=== PATIENT | female | born 1970 | race Caucasian/White ===

== ENCOUNTER 2016-09-05 21:29 | Inpatient (IN) | payer MEDICAID ==
[~2016-09-05] VITALS: Ht 162.6 cm; Wt 74.5 kg
[~2016-09-05 21:29] MED LIST: ALPR2TAB3 PO; GABA800T PO; LANTUS2P SQ; NOVOLOGP2 SQ; PROM25TA5 PO; ROPI2 PO; SERO200T PO; SOMA350T PO
[2016-09-05 22:15] VITALS: BP 103/60; PULSE 100; RESP 20; TEMP 98.8; O2SAT 97
[2016-09-05] MEDS ORDERED: SODIUM CHLOR 0.9% 1000 ML INJ 1,000 ML IV ONE ×2 (23:22→23:52)
[2016-09-05] MEDS ORDERED: SODIUM CHLORIDE 0.9% FLUSH 5 ML FLUSH IVF PRN (23:30)
[2016-09-05] MEDS ORDERED: VANCOMYCIN INJ 1,000 MG in SODIUM CHLOR 0.9% 250 ML INJ 250 ML IV ONE (23:30)
[2016-09-05 23:41] LABS: AUTOMATED NEUTROPHIL # 12.5 TH/MM3 (1.8-7.7); BASOPHIL # 0.2 TH/MM3 (0-0.2); BASOPHIL % 1.2 % (0.0-2.0); EOSINOPHIL # 0.1 TH/MM3 (0-0.4); EOSINOPHIL % 0.9 % (0.0-4.0); HEMATOCRIT 26.9 % (35.0-46.0); LYMPH % 11.3 % (9.0-44.0); LYMPHOCYTE # 1.8 TH/MM3 (1.0-4.8); MEAN CELL VOLUME 86.5 FL (80.0-100.0); MEAN CORPUSCULAR HEMOGLOBIN 28.3 PG (27.0-34.0); MEAN CORPUSCULAR HGB CONC 32.8 % (32.0-36.0); MONO % 6.9 % (0.0-8.0); NEUT % 79.7 % (16.0-70.0); PLATELET COUNT 211 TH/MM3 (150-450); RED BLOOD COUNT 3.12 MIL/MM3 (4.00-5.30); RED CELL DISTRIBUTION WIDTH 15.4 % (11.6-17.2); WHITE BLOOD COUNT 15.7 TH/MM3 (4.0-11.0)
[2016-09-05 23:44] LABS: HEMO FLAGS DIFF FINAL
[2016-09-05 23:49] LABS: CHLORIDE 101 MEQ/L (98-107); POTASSIUM 3.7 MEQ/L (3.5-5.1); SODIUM (NA) 136 MEQ/L (136-145)
[2016-09-05 23:50] VITALS: O2SAT 100
[2016-09-05 23:53] LABS: ANION GAP 12 MEQ/L (5-15); BICARBONATE 23.1 MEQ/L (21.0-32.0)
[2016-09-05 23:54] LABS: BLOOD UREA NITROGEN 16 MG/DL (7-18); MAGNESIUM 2.4 MG/DL (1.5-2.5)
[2016-09-06] VITALS (13 sets, daily range): BP systolic 100–125; BP diastolic 47–74; PULSE 93–108; RESP 16–20; TEMP 97.1–99.3; O2SAT 97–100
[2016-09-06 00:02] LABS: ALKALINE PHOSPHATASE 204 U/L (45-117); ALT (GPT) 12 U/L (10-53); AST (GOT) 9 U/L (15-37); GLOMERULAR FILTRATION RATE 48 ML/MIN (>89); TOTAL BILIRUBIN ADULT 0.2 MG/DL (0.2-1.0)
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
[2016-09-06] MEDS ORDERED: TEGR200T PO (00:21)
[2016-09-06] MEDS ORDERED: PRAZ1CAP PO (00:22)
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
[2016-09-06] MEDS ORDERED: HYDR4TAB PO (00:23)
[2016-09-06] MEDS ORDERED: HUMALOG SQ (00:24)
[2016-09-06] MEDS ORDERED: HUMA100I3 SQ (00:25)
[2016-09-06] MEDS ORDERED: CLINDAMYCIN INJ 900 MG in SODIUM CHLORIDE 0.9% INJ 100 ML IV ONE (00:45)
[2016-09-06] MEDS ORDERED: INSULIN HUMAN REGULAR 1,000 UNITS/10 ML VIAL IV PUSH ONE (00:45)
[2016-09-06 01:10] LABS: BLOOD, URINE TRACE (NEG); KETONE, URINE NEG (NEG); NITRITE,URINE NEG (NEG); PH, URINE 5.5 (5.0-8.5)
[2016-09-06 01:13] LABS: GLUCOSE,URINE 1000 OR GREATER mg/dL (NEG); URINE COLOR YELLOW (YELLW/STRAW)
[2016-09-06 01:14] LABS: SQUAMOUS EPITHELIAL CELL URINE 0-5 /hpf (0-5); WBC, URINE 0-2 /hpf (0-5)
[2016-09-06 01:15] LABS: COMMENT (UR) CULT NOT INDICATED; CULTURE IF INDICATED CULT NOT INDICATED
[2016-09-06 01:27] LABS: AMPHETAMINE, URINE NEG (NEG)
[2016-09-06 01:28] LABS: BARBITURATES, URINE NEG (NEG)
[2016-09-06 01:33] LABS: COCAINE, URINE NEG (NEG)
[2016-09-06] MEDS ORDERED: ONDANSETRON HCL 4 MG/2 ML VIAL IV PUSH ONE ×2 (01:45→12:00)
[2016-09-06] MEDS ORDERED: HYDROmorphone HCL PF 1 MG/ML VIAL IV PUSH ONE ×3 (01:45→05:00)
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
[2016-09-06] MEDS ORDERED: PIPERACIL-TAZO 3.375 GM PREMIX 50 ML IV ONE (02:00)
[2016-09-06] MEDS ORDERED: SODIUM CHLOR 0.9% 1000 ML INJ 1,000 ML IV ONE (02:00)
[2016-09-06] MEDS ORDERED: SODIUM CHLORIDE 0.9% FLUSH 5 ML FLUSH IVF PRN ×2 (02:15→16:45)
[2016-09-06] MEDS ORDERED: D5-1/2 NS + KCL 20 MEQ INJ 1,000 ML IV SCH (02:30)
[2016-09-06] MEDS ORDERED: Vancomycin Consult Pharmacy 1 EA OTHER SCH ×2 (02:45→09:15)
[2016-09-06] MEDS: HEPARIN SODIUM - SQ 10,000 UNITS/ML VIAL SQ SCH (02:45)
[2016-09-06] MEDS ORDERED: NALOXONE HCL 0.4 MG/ML AMP IV PRN (02:45)
[2016-09-06] MEDS ORDERED: SODIUM CHLOR 0.9% 1000 ML INJ 1,000 ML IV SCH (02:45)
[2016-09-06] MEDS ORDERED: SENNOSIDES 8.6 MG TAB PO PRN (02:45)
[2016-09-06] MEDS ORDERED: DEXTROSE 50% IN WATER 50 ML SYRINGE IV ONE (03:45)
[2016-09-06] MEDS ORDERED: DEXTROSE 50% IN WATER 50 ML VIAL(D50) IV ONE (04:00)
[2016-09-06] MEDS: INSULIN ASPART SUPPLEMENTAL SCALE SQ SCH ×4 (06:54→21:00)
[2016-09-06] MEDS ORDERED: SODIUM CHLORIDE 0.9% FLUSH 5 ML FLUSH IVF SCH ×2 (09:00→21:00)
[2016-09-06] MEDS: PIPERACIL-TAZO 3.375 GM PREMIX 50 ML IV SCH ×3 (09:07→21:00)
[2016-09-06] MEDS: SODIUM CHLORIDE 0.9% FLUSH 5 ML FLUSH FLUSH SCH ×2 (09:07→20:32)
[2016-09-06] MEDS ORDERED: PROMETHAZINE HCL 25 MG TAB PO PRN (10:00)
[2016-09-06] MEDS ORDERED: DEXTROSE 25% IN WATER 10 ML SYRINGE IV PUSH ONE (10:00)
[2016-09-06] MEDS: DEXTROSE 50% IN WATER 50 ML VIAL(D50) IV PUSH PRN (10:05)
[2016-09-06] MEDS: SODIUM CHLORIDE 0.9% FLUSH 5 ML FLUSH FLUSH PRN (10:05)
[2016-09-06] MEDS: GLUCAGON 1 MG/ML VIAL OTHER PRN (10:42)
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
[2016-09-06] MEDS ORDERED: LACTATED RINGER'S 1000 ML INJ 1,000 ML IV ONE (12:00)
[2016-09-06] MEDS ORDERED: PROPOFOL 200 MG/20 ML AMP IV ONE (12:00)
--- NOTE | 2016-09-06 13:00 | RADRPT ---
EXAM DATE/TIME: 09/06/2016 11:35 [facility] COMPARISON: FOOT LEFT COMPLETE ([id number]), September 05, 2016, 23:39. INDICATIONS: Osteomyelitis. MEDICAL HISTORY: Diabetes mellitus type 2. SURGICAL HISTORY: Tubal ligation. Cholecystectomy. Fusion, cervical. ENCOUNTER: Initial ACUITY: 2 day PAIN SCORE: 10/10 LOCATION: Left foot TECHNIQUE: Multiplanar, multisequence MRI examination was performed without contrast. FINDINGS: There is generalized soft tissue swelling evident. Plain films had shown minimal gas in the soft tis sues on the medial side of the ankle. There is edema in the medial tarsal navicular and cuneiform, nonspecific. This is subtle seen only o n inversion recovery images. There is extensive subcutaneous edema in the soft tissues. Intravenous contrast was not used because of lack of vascular access. Metatarsals and phalanges are unremarkable. Calcaneus and talus are unremarkable. CONCLUSION: Significant abnormality on the medial side of the foot with abnormal signal in the tarsal navicular a nd first cuneiform. Gonzalo Sears MD FACR on September 06, 2016 at 12:38 Board Certified Radiologist. This report was verified electronically.
[2016-09-06] MEDS ORDERED: BUPIVACAINE HCL PF 0.25% 30 ML VIAL ONE (13:12)
[2016-09-06] MEDS ORDERED: LIDOCAINE HCL 1% 50 ML VIAL ONE (13:12)
[2016-09-06] MEDS ORDERED: SODIUM CHLORID 0.9% 500 ML IV SCH (13:15)
[2016-09-06] MEDS ORDERED: LACTATED RINGER'S 1000 ML IV SCH (13:15)
[2016-09-06] MEDS ORDERED: METOPROLOL TARTRATE 25 MG TAB PO PRN (13:15)
[2016-09-06] MEDS ORDERED: INSULIN HUMAN REGULAR 1,000 UNITS/10 ML VIAL SQ PRN (13:15)
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
[2016-09-06] MEDS ORDERED: BUPIVACAINE HCL PF 0.5% 30 ML VIAL ONE (14:54)
[2016-09-06] MEDS ORDERED: MIDAZOLAM HCL 2 MG/2 ML VIAL ONE ×2 (15:48→16:51)
[2016-09-06] MEDS ORDERED: fentaNYL CITRATE 250 MCG/5 ML AMP ONE ×2 (15:48→16:51)
[2016-09-06] MEDS ORDERED: NEOMYCIN/POLYMYXIN 1 ML G.U. IRRIGANT IR ONE (16:00)
[2016-09-06] MEDS ORDERED: *HYDROmorphone PF 1 MG VIAL PERIprocedural Use ONLY ONE ×3 (16:41→16:57)
[2016-09-06] MEDS ORDERED: Post-op Orders (for Pharmacy) MISC XX ONE (16:45)
[2016-09-06] MEDS ORDERED: MORPHINE SULFATE 4 MG/ML INJ ONE (16:51)
[2016-09-06] MEDS ORDERED: *hydrOXYzine 25 MG VIAL PERIprocedural Use ONLY IM ONE (16:56)
[2016-09-06] MEDS: DEXT 5%-NACL 0.9% 1000 ML INJ 1,000 ML IV SCH ×2 (17:00→20:33)
--- NOTE | 2016-09-06 17:08 | RADRPT ---
EXAM DATE/TIME: 09/06/2016 16:51 [place] COMPARISON: CHEST SINGLE AP, September 05, 2016, 23:33. INDICATIONS : Evaluate central line placement. MEDICAL HISTORY : None. SURGICAL HISTORY : None. ENCOUNTER: Initial ACUITY: 1 day PAIN SCORE: 0/10 LOCATION: Left chest FINDINGS: A single view of the chest demonstrates the lungs to be symmetrically aerated without evidence of mas s, infiltrate or effusion. The cardiomediastinal contours are unremarkable. There is a right interna l jugular central venous line with no pneumothorax. Status post lower cervical fusion. Osseous struct ures are intact. CONCLUSION: No acute disease. Central line placement with no pneumothorax. Surendra Wright MD on September 06, 2016 at 17:03 Board Certified Radiologist. This report was verified electronically.
[2016-09-06] MEDS: HYDROmorphone HCL PF 1 MG/ML VIAL IV PUSH PRN (18:45)
[2016-09-06] MEDS: GABAPENTIN 300 MG CAP PO SCH (20:33)
[2016-09-06] MEDS: carBAMazepine 200 MG TAB PO SCH (20:33)
[2016-09-06] MEDS: ALPRAZolam 1 MG TAB PO PRN (20:34)
[2016-09-06] MEDS: HYDROmorphone HCL 4 MG TAB PO PRN (20:34)
[2016-09-06] MEDS ORDERED: VANCOMYCIN 1,500 MG/NS 500 ML IV SCH ×2 (22:00)
[2016-09-07] VITALS (8 sets, daily range): BP systolic 100–133; BP diastolic 51–69; PULSE 93–108; RESP 18–20; TEMP 97.6–99.6; O2SAT 97–99
[2016-09-07] MEDS: HYDROmorphone HCL PF 1 MG/ML VIAL IV PUSH PRN ×4 (01:03→17:20)
[2016-09-07] MEDS: DEXT 5%-NACL 0.9% 1000 ML INJ 1,000 ML IV SCH (01:28)
[2016-09-07] MEDS: ALPRAZolam 1 MG TAB PO PRN ×4 (02:31→21:50)
[2016-09-07] MEDS: PIPERACIL-TAZO 3.375 GM PREMIX 50 ML IV SCH ×4 (02:31→21:47)
[2016-09-07] MEDS: HYDROmorphone HCL 4 MG TAB PO PRN ×4 (02:31→21:33)
[2016-09-07] MEDS: HEPARIN SODIUM - SQ 10,000 UNITS/ML VIAL SQ SCH ×2 (02:32→15:07)
[2016-09-07] MEDS: INSULIN ASPART SUPPLEMENTAL SCALE SQ SCH ×2 (05:28→10:41)
[2016-09-07 06:00] LABS: AUTOMATED NEUTROPHIL # 10.4 TH/MM3 (1.8-7.7); BASOPHIL # 0.1 TH/MM3 (0-0.2); BASOPHIL % 0.9 % (0.0-2.0); EOSINOPHIL # 0.4 TH/MM3 (0-0.4); EOSINOPHIL % 2.7 % (0.0-4.0); HEMATOCRIT 22.9 % (35.0-46.0); HEMO FLAGS DIFF FINAL; LYMPH % 13.7 % (9.0-44.0); LYMPHOCYTE # 1.9 TH/MM3 (1.0-4.8); MEAN CELL VOLUME 87.2 FL (80.0-100.0); MEAN CORPUSCULAR HEMOGLOBIN 28.3 PG (27.0-34.0); MEAN CORPUSCULAR HGB CONC 32.4 % (32.0-36.0); MONO % 6.8 % (0.0-8.0); NEUT % 75.9 % (16.0-70.0); PLATELET COUNT 255 TH/MM3 (150-450); RED BLOOD COUNT 2.63 MIL/MM3 (4.00-5.30); RED CELL DISTRIBUTION WIDTH 16.2 % (11.6-17.2); WHITE BLOOD COUNT 13.7 TH/MM3 (4.0-11.0)
[2016-09-07 06:22] LABS: BICARBONATE 22.5 MEQ/L (21.0-32.0)
[2016-09-07 06:37] LABS: CALCIUM-PROTEIN CORRECTED 7.8 MG/DL (8.5-10.1)
[2016-09-07] MEDS ORDERED: QUEtiapine FUMARATE 200 MG TAB PO SCH (09:00)
[2016-09-07] MEDS ORDERED: PRAZOSIN HCL 1 MG CAP PO SCH (09:00)
[2016-09-07] MEDS: CARISOPRODOL 350 MG TAB PO PRN ×3 (09:06→21:33)
[2016-09-07] MEDS: GABAPENTIN 300 MG CAP PO SCH (09:07)
[2016-09-07] MEDS: SODIUM CHLORIDE 0.9% FLUSH 5 ML FLUSH FLUSH SCH ×2 (09:09→21:34)
[2016-09-07] MEDS: carBAMazepine 200 MG TAB PO SCH ×2 (09:09→21:33)
[2016-09-07] MEDS: LEVOFLOXACIN 500 MG PREMIX INJ 100 ML IV SCH ×2 (10:00→10:35)
[2016-09-07] MEDS: VANCOMYCIN 1,000 MG/NS 250 ML IV SCH ×4 (12:08→23:59)
--- NOTE | 2016-09-07 14:38 | HHI.PR ---
Subjective Remarks He should complain of chest pain on the right mid back ribs increased with pressure and respiration No fever or chills, no nausea or vomiting Patient told me she is very susceptible to get DKA, we'll stop D50 normal saline , and check Accu-Chek every 4 hours, changes of sliding scale to level, and start Levemir twice a day 10 units Objective Vitals Vital Signs Date Time Temp Pulse Resp B/P Pulse Ox O2 Delivery O2 Flow Rate FiO2 09/07/16 12:17 99.4 103 18 105/58 97 09/07/16 09:40 99 21 09/07/16 08:48 99.5 108 18 112/69 99 09/07/16 04:25 98.1 96 18 118/60 97 09/07/16 00:58 98 09/07/16 00:16 98.0 98 20 120/60 97 09/06/16 20:00 98.1 100 20 118/59 97 09/06/16 19:15 16 09/06/16 19:00 103 09/06/16 17:00 98.4 108 14 124/83 98 Nasal Cannula 2 09/06/16 16:49 97.1 99 20 124/74 98 09/06/16 16:45 107 14 140/77 98 Nasal Cannula 2 09/06/16 16:39 98.4 111 14 135/73 97 Nasal Cannula 2 I/O 09/06/16 09/06/16 09/06/16 09/07/16 09/07/16 09/07/16 07:00 15:00 23:00 07:00 15:00 23:00 Intake Total 3400 ml 1440 ml 480 ml 1100 ml Output Total 800 ml 20 ml Balance 2600 ml 1420 ml 480 ml 1100 ml Intake Oral 240 ml 480 ml IV Total 3400 ml 1100 ml Other 1200 ml Output Urine Total 800 ml Estimated Blood Loss 20 ml # Voids 1 1 2 Result Diagram: 09/07/16 0531 09/07/16 0532 Objective Remarks GENERAL: This is a well-nourished, well-developed patient, in no apparent distress. SKIN: No rashes, warm and dry HEAD: Atraumatic. Normocephalic. EYES: Pupils equal round and reactive. Extraocular motions intact. No scleral icterus. ENT: Nose without bleeding, or drainage, Airway patent. NECK: Trachea midline. Supple CARDIOVASCULAR: Regular rate and rhythm without murmurs, gallops, or rubs. RESPIRATORY: Fair air entry bilaterally. No wheezes, rales, or rhonchi. GASTROINTESTINAL: Abdomen soft, non-tender, nondistended. Positive bowel sounds MUSCULOSKELETAL: Extremities without clubbing, cyanosis, or edema. Pedal pulses appreciated NEUROLOGICAL: Awake and alert. Moves all extremity. Normal speech.no focal neurological deficit A/P Assessment and Plan A/P: - Infected diabetic left foot suspected gangrene/necrotizing fasciitis status post I&D - Sepsis - Uncontrolled diabetes mellitus with episode of hypoglycemia. - Hypocalcemia - Gastroparesis History - History of PTSD, anxiety. - Chronic pain syndrome with neck surgery in the past. - History of IV drug abuse in the past and positive cocaine in the urine drug screen last year. PLAN Patient told me she is very susceptible to get DKA, we'll stop D50 normal saline , and check Accu-Chek every 4 hours, changes of sliding scale to level, and start Levemir twice a day 10 units Calcium carbonate for hypocalcemia - Gabapentin 600 mg on as needed basis. - Broad spectrum antibiotic. - Awaiting ID consult - Appreciate Podiatry consult - Continue home medications. - Antiemetics on a p.r.n. basis. - Discussed with Dr. Sandoval the admitted physician Melissa Bella MD Sep 07, 2016 14:38
[2016-09-07] MEDS: SODIUM CHLOR 0.9% 1000 ML INJ 1,000 ML IV SCH (15:12)
[2016-09-07] MEDS: INSULIN NovoLIN REGULAR SUPPLEMENTAL SCALE SQ SCH ×2 (18:31→21:48)
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
[2016-09-07] MEDS ORDERED: INSULIN DETEMIR 100 UNITS/ML VIAL SQ SCH (21:00)
[2016-09-07] MEDS: QUEtiapine FUMARATE 200 MG TAB PO SCH (21:32)
[2016-09-07] MEDS: PRAZOSIN HCL 2 MG CAP PO SCH (21:33)
[2016-09-07] MEDS: CALCIUM CARBONATE 1.25 GM (CA 500 MG) TAB PO SCH (21:33)
[2016-09-07] MEDS: GABAPENTIN 400 MG CAP PO SCH (21:33)
[2016-09-07] MEDS: INSULIN DETEMIR 100 UNITS/ML VIAL SQ SCH (21:49)
[2016-09-08] VITALS (9 sets, daily range): BP systolic 102–135; BP diastolic 53–69; PULSE 90–102; RESP 18–20; TEMP 94.4–98.3; O2SAT 95–98
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
[2016-09-08] MEDS: CLINDAMYCIN 150 MG CAP PO SCH ×4 (00:48→17:03)
[2016-09-08] MEDS: SODIUM CHLOR 0.9% 1000 ML INJ 1,000 ML IV SCH ×3 (01:01→22:43)
[2016-09-08] MEDS: HEPARIN SODIUM - SQ 10,000 UNITS/ML VIAL SQ SCH ×2 (02:45→15:06)
[2016-09-08] MEDS: PIPERACIL-TAZO 3.375 GM PREMIX 50 ML IV SCH ×4 (03:13→20:52)
[2016-09-08] MEDS: HYDROmorphone HCL 4 MG TAB PO PRN ×5 (03:21→22:39)
[2016-09-08] MEDS: ALPRAZolam 1 MG TAB PO PRN ×3 (05:13→18:31)
[2016-09-08] MEDS: HYDROmorphone HCL PF 1 MG/ML VIAL IV PUSH PRN ×3 (05:14→12:17)
[2016-09-08] MEDS: CARISOPRODOL 350 MG TAB PO PRN ×3 (05:22→18:31)
[2016-09-08] MEDS: DEXTROSE 50% IN WATER 50 ML VIAL(D50) IV PUSH PRN (06:22)
[2016-09-08] MEDS: INSULIN NovoLIN REGULAR SUPPLEMENTAL SCALE SQ SCH ×4 (06:24→20:53)
[2016-09-08] MEDS ORDERED: BUPIVACAINE HCL PF 0.5% 30 ML VIAL ONE (07:12)
[2016-09-08] MEDS ORDERED: LIDOCAINE HCL 1% 50 ML VIAL ONE (07:13)
[2016-09-08] MEDS ORDERED: NEOMYCIN/POLYMYXIN 1 ML G.U. IRRIGANT IR ONE (07:18)
[2016-09-08] MEDS: SODIUM CHLORIDE 0.9% FLUSH 5 ML FLUSH FLUSH SCH ×2 (07:42→20:33)
[2016-09-08] MEDS: GABAPENTIN 400 MG CAP PO SCH ×3 (07:43→20:32)
[2016-09-08] MEDS: INSULIN DETEMIR 100 UNITS/ML VIAL SQ SCH ×2 (07:43→20:52)
[2016-09-08] MEDS: carBAMazepine 200 MG TAB PO SCH ×2 (07:43→20:33)
[2016-09-08] MEDS: CALCIUM CARBONATE 1.25 GM (CA 500 MG) TAB PO SCH ×2 (07:43→20:33)
[2016-09-08] MEDS ORDERED: fentaNYL CITRATE 250 MCG/5 ML AMP ONE (07:56)
[2016-09-08] MEDS ORDERED: MIDAZOLAM HCL 2 MG/2 ML VIAL ONE (07:56)
[2016-09-08] MEDS ORDERED: ACETAMINOPHEN 1000 MG/100 ML VIAL IV ONE (07:56)
[2016-09-08] MEDS ORDERED: SUGAMMADEX SODIUM 200 MG/2 ML VIAL IV PUSH ONE ×2 (07:57)
[2016-09-08] MEDS ORDERED: DO NOT ADM ANY ANTICOAGULANT DRUGS XX PRN (08:55)
[2016-09-08] MEDS ORDERED: SODIUM CHLORIDE 0.9% FLUSH 5 ML FLUSH IVF SCH (09:00)
[2016-09-08] MEDS ORDERED: INSULIN DETEMIR 100 UNITS/ML VIAL SQ SCH (09:00)
[2016-09-08] MEDS ORDERED: SODIUM CHLORIDE 0.9% FLUSH 5 ML FLUSH IVF PRN (09:00)
[2016-09-08] MEDS ORDERED: *HYDROmorphone PF 1 MG VIAL PERIprocedural Use ONLY ONE (09:00)
[2016-09-08] MEDS ORDERED: Post-op Orders (for Pharmacy) MISC XX ONE (09:00)
[2016-09-08] MEDS ORDERED: MORPHINE SULFATE 4 MG/ML INJ ONE (09:01)
[2016-09-08] MEDS: VANCOMYCIN 1,000 MG/NS 250 ML IV SCH ×2 (12:00)
[2016-09-08] MEDS ORDERED: LACTATED RINGER'S 1000 ML INJ 1,000 ML IV ONE (12:00)
[2016-09-08] MEDS ORDERED: ONDANSETRON HCL 4 MG/2 ML VIAL IV PUSH ONE (12:00)
[2016-09-08] MEDS ORDERED: PROPOFOL 200 MG/20 ML AMP IV ONE (12:00)
--- NOTE | 2016-09-08 12:57 | HHI.PR ---
Subjective Remarks Patient reported she still in severe pain, she requested that Dilaudid by mouth to be every 4 hours I discussed with the PT was at the bedside he recommended rehabilitation at discharge No fever or chills, no chest pain Objective Vitals Vital Signs Date Time Temp Pulse Resp B/P Pulse Ox O2 Delivery O2 Flow Rate FiO2 09/08/16 12:27 97.8 97 18 109/61 95 09/08/16 10:19 98.3 99 18 119/66 96 09/08/16 09:13 98.4 105 16 111/72 99 Room Air 09/08/16 09:00 102 14 123/72 99 Nasal Cannula 2 09/08/16 08:55 98.4 110 14 116/67 94 Nasal Cannula 2 09/08/16 07:25 97.8 99 18 102/69 98 09/08/16 06:13 19 09/08/16 06:13 19 09/08/16 04:27 18 09/08/16 04:00 98.0 96 20 114/64 98 09/08/16 01:17 90 09/07/16 20:00 97.6 93 20 100/51 98 09/07/16 18:21 21 09/07/16 16:47 99.6 104 18 133/64 97 I/O 09/07/16 09/07/16 09/07/16 09/08/16 09/08/16 09/08/16 07:00 15:00 23:00 07:00 15:00 23:00 Intake Total 480 ml 1340 ml 240 ml 500 ml 1100 ml Output Total 50 ml Balance 480 ml 1340 ml 240 ml 500 ml 1050 ml Intake Oral 480 ml 240 ml 240 ml IV Total 1100 ml 500 ml 100 ml Other 1000 ml Output Urine Total 0 ml Estimated Blood Loss 50 ml # Voids 2 4 1 4 # Bowel Movements 0 1 Result Diagram: 09/07/16 0531 09/07/16 0532 Objective Remarks GENERAL: This is a well-nourished, well-developed patient, in no apparent distress. SKIN: No rashes, warm and dry HEAD: Atraumatic. Normocephalic. EYES: Pupils equal round and reactive. Extraocular motions intact. No scleral icterus. ENT: Nose without bleeding, or drainage, Airway patent. NECK: Trachea midline. Supple CARDIOVASCULAR: Regular rate and rhythm without murmurs, gallops, or rubs. RESPIRATORY: Fair air entry bilaterally. No wheezes, rales, or rhonchi. GASTROINTESTINAL: Abdomen soft, non-tender, nondistended. Positive bowel sounds MUSCULOSKELETAL: Extremities without clubbing, cyanosis, or edema. Pedal pulses appreciated NEUROLOGICAL: Awake and alert. Moves all extremity. Normal speech.no focal neurological deficit A/P Assessment and Plan A/P: - Infected diabetic left foot gangrene/necrotizing fasciitis status post I&D - Sepsis due to above - Uncontrolled diabetes mellitus with episodes of hypoglycemia. - Hypocalcemia - Gastroparesis History - History of PTSD, anxiety. - Chronic pain syndrome with neck surgery in the past. - History of IV drug abuse in the past and positive cocaine in the urine drug screen last year. PLAN Due to episode of low fasting blood glucose we will adjust Levemir to 20 units in a.m., 10 units in p.m., continue Accu-Chek every 4 hours, apply hyperglycemic protocol Calcium carbonate for hypocalcemia Change Dilaudid by mouth 2 every 4 hours 4 milligram versus 2 mg with pain scale - Gabapentin 600 mg on as needed basis. - Broad spectrum antibiotic. - Appreciate ID consult>> continue Zosyn and Vanco, switch Levaquin to clindamycin - Appreciate Podiatry consult - Continue home medications. - Antiemetics on a p.r.n. basis. - Discussed with Dr. Sandoval the admitted physician Melissa Bella MD Sep 08, 2016 12:57
--- NOTE | 2016-09-08 19:45 | MP ---
cc: DARWIN ARREOLA DPM DATE OF SURGERY 09/08/2016 PREOPERATIVE DIAGNOSIS Left diabetic foot infection. POSTOPERATIVE DIAGNOSIS Left diabetic foot infection. PROCEDURES 1. Irrigation and debridement left foot. 2. Deep culture. 3. Application of wound VAC. ANESTHESIA The patient handled anesthesia well. Anesthesia was general with 10 cc of 0.5% Marcaine plain and 1% lidocaine plain injected preoperatively. ESTIMATED BLOOD LOSS 10 cc. TOURNIQUET TIME Left thigh tourniquet at 250 mmHg for 22 minutes. SPECIMEN Deep culture of the left foot. INDICATION The patient is a 45-year-old diabetic female with a severe left foot infection. Went to surgery on Friday for an initial wash out, I&D and wound VAC application. She comes back today for serial wound VAC changes and repeat I&D. The patient understands the procedure performed today as well as potential risks and complications involved. All questions were answered. The patient was brought to the operating room and placed on the operating table in the supine position. Pneumatic thigh tourniquet was placed on the left thigh. The left foot was scrubbed, prepped and draped in the usual sterile fashion. 10 cc of 0.5 Marcaine plain and 1% lidocaine was injected preoperatively. First attention was directed in which a rongeur, pickups and were used in the open wound that measured 11 x 3 pre debridement. All necrotic tissue and non viable tissue was debrided away. Next it was found to have the inferior portion of the open incision was beginning to become necrotic, approximately 1 cm so the necrotic tissue was excised on the skin and now the wound measured 11.5 x 4.0. The area was copiously flushed with a liter of antibiotic impregnated saline and the area was dried. The plantar arch was mildly macerated. Betadine was put over that area. Mastisol was used around the incision and a small wound VAC was placed over the wound. I did have to re-enforce a lot because of the position of the foot and so the whole foot had to be wrapped but the sponge only placed inside the wound margins. Then cast padding and Tim was used to wrap the foot. The patient handled anesthesia well. Darwin Arreola DPM ZPB/KK /8:53 AM /7:34 PM
[2016-09-08] MEDS: QUEtiapine FUMARATE 200 MG TAB PO SCH (20:32)
[2016-09-08] MEDS: PRAZOSIN HCL 2 MG CAP PO SCH (20:34)
[2016-09-08] MEDS ORDERED: PHARMACY ORDERED LAB XX ONE (21:45)
[2016-09-09] VITALS (7 sets, daily range): BP systolic 103–129; BP diastolic 55–69; PULSE 87–109; RESP 18–20; TEMP 97.4–98.8; O2SAT 95–99
[2016-09-09] MEDS: VANCOMYCIN 1,000 MG/NS 250 ML IV SCH ×2 (01:32)
[2016-09-09] MEDS: HEPARIN SODIUM - SQ 10,000 UNITS/ML VIAL SQ SCH ×2 (01:32→14:45)
[2016-09-09] MEDS: CLINDAMYCIN 150 MG CAP PO SCH ×4 (01:32→17:53)
[2016-09-09] MEDS: CARISOPRODOL 350 MG TAB PO PRN ×3 (01:41→12:27)
[2016-09-09] MEDS: HYDROmorphone HCL PF 1 MG/ML VIAL IV PUSH PRN ×4 (01:41→15:30)
[2016-09-09] MEDS: ALPRAZolam 1 MG TAB PO PRN ×4 (01:42→21:55)
[2016-09-09] MEDS: HYDROmorphone HCL 4 MG TAB PO PRN ×5 (03:27→22:08)
[2016-09-09] MEDS: PIPERACIL-TAZO 3.375 GM PREMIX 50 ML IV SCH ×4 (03:29→22:07)
[2016-09-09] MEDS: SODIUM CHLOR 0.9% 1000 ML INJ 1,000 ML IV SCH ×2 (07:00→17:00)
[2016-09-09] MEDS: INSULIN NovoLIN REGULAR SUPPLEMENTAL SCALE SQ SCH ×4 (07:00→21:55)
[2016-09-09] MEDS ORDERED: INSULIN DETEMIR 100 UNITS/ML VIAL SQ SCH (08:00)
[2016-09-09] MEDS: SODIUM CHLORIDE 0.9% FLUSH 5 ML FLUSH FLUSH SCH ×2 (09:00→21:57)
[2016-09-09] MEDS: GABAPENTIN 400 MG CAP PO SCH ×3 (09:31→21:56)
[2016-09-09] MEDS: CALCIUM CARBONATE 1.25 GM (CA 500 MG) TAB PO SCH ×2 (09:31→21:57)
[2016-09-09] MEDS: carBAMazepine 200 MG TAB PO SCH ×2 (09:31→21:56)
--- NOTE | 2016-09-09 11:36 | HHI.PR ---
Subjective Remarks Follow up on left leg gangrenous diabetic infection status post I&D and wound VAC No fever or chills, patient stated her pain is more tolerable now Blood glucose fluctuating, will increase morning Levemir to 30 units with 3 units 3 times a day before meals Objective Vitals Vital Signs Date Time Temp Pulse Resp B/P Pulse Ox O2 Delivery O2 Flow Rate FiO2 09/09/16 08:12 97.4 109 18 106/55 95 09/09/16 04:30 18 09/09/16 04:00 97.9 100 20 104/55 96 09/09/16 03:18 18 09/09/16 02:11 19 09/09/16 00:17 92 09/09/16 00:00 98.8 94 18 103/56 95 09/08/16 20:00 92 09/08/16 20:00 98.2 100 18 112/53 97 09/08/16 18:16 96 21 09/08/16 16:19 94.4 102 18 135/67 96 09/08/16 12:27 97.8 97 18 109/61 95 I/O 09/08/16 09/08/16 09/08/16 09/09/16 09/09/16 09/09/16 07:00 15:00 23:00 07:00 15:00 23:00 Intake Total 500 ml 1580 ml 360 ml 240 ml Output Total 50 ml 500 ml Balance 500 ml 1530 ml -140 ml 240 ml Intake Oral 480 ml 360 ml 240 ml IV Total 500 ml 100 ml Other 1000 ml Output Urine Total 0 ml 500 ml Estimated Blood Loss 50 ml # Voids 4 4 3 # Bowel Movements 1 1 0 Result Diagram: 09/07/16 0531 09/08/16 1731 Objective Remarks GENERAL: This is a well-nourished, well-developed patient, in no apparent distress. SKIN: No rashes, warm and dry HEAD: Atraumatic. Normocephalic. EYES: Pupils equal round and reactive. Extraocular motions intact. No scleral icterus. ENT: Nose without bleeding, or drainage, Airway patent. NECK: Trachea midline. Supple CARDIOVASCULAR: Regular rate and rhythm without murmurs, gallops, or rubs. RESPIRATORY: Fair air entry bilaterally. No wheezes, rales, or rhonchi. GASTROINTESTINAL: Abdomen soft, non-tender, nondistended. Positive bowel sounds MUSCULOSKELETAL: Extremities without clubbing, cyanosis, or edema. Pedal pulses appreciated NEUROLOGICAL: Awake and alert. Moves all extremity. Normal speech.no focal neurological deficit A/P Assessment and Plan A/P: - Infected diabetic left foot gangrene/necrotizing fasciitis status post I&D - Sepsis due to above - Uncontrolled diabetes mellitus with episodes of hypoglycemia. - Hypocalcemia - Gastroparesis History - History of PTSD, anxiety. - Chronic pain syndrome with neck surgery in the past. - History of IV drug abuse in the past and positive cocaine in the urine drug screen last year. PLAN Blood glucose still fluctuating and not control during the day, will increase morning Levemir to 30 units, and add NovoLog 3 units 3 times a day before meals , continue 10 units in p.m., continue Accu-Chek every 4 hours, apply hyperglycemic protocol Podiatry on board, patient for OR tomorrow evening as she was told Calcium carbonate for hypocalcemia Change Dilaudid by mouth 2 every 4 hours 4 milligram versus 2 mg with pain scale - Gabapentin 600 mg on as needed basis. - Broad spectrum antibiotic. - Appreciate ID consult>> continue Zosyn and Vanco, switch Levaquin to clindamycin - Continue home medications. - Antiemetics on a p.r.n. basis. - Discussed with Dr. Sandoval the admitted physician Melissa Bella MD Sep 09, 2016 11:36
[2016-09-09] MEDS ORDERED: PHARMACY ORDERED LAB XX ONE (11:45)
[2016-09-09] MEDS: INSULIN ASPART 1,000 UNITS/10 ML VIAL SQ SCH ×2 (12:11→18:22)
--- NOTE | 2016-09-09 17:52 | HHI.PR ---
Addendum to Inpatient Note Addendum Reason: Additional Documentation Additional Information cultures reviewed DC Vanco IV as no MRSA Continue Zosyn IV Continue Clinda for total of 5 days. Start Diflucan oral. Follow cultures Follow clinically. Will follow pt in am. Melissa Maldonado MD Sep 09, 2016 17:52
[2016-09-09] MEDS: FLUCONAZOLE 200 MG TAB PO SCH (18:00)
--- NOTE | 2016-09-09 19:45 | PD.POD ---
Subjective Podiatric Problems s/p Left ankle I and D with Dr Medina 09/08/16 Doing well at bedside this am. Pain scale used: 0-10 numeric scale Pain score: 4 Past Med/Surg/Social History Social History Smoking Status: Never Smoker Objective Vital Signs Vital Signs Date Time Temp Pulse Resp B/P Pulse Ox O2 Delivery O2 Flow Rate FiO2 09/09/16 16:19 97.6 102 19 129/68 96 09/09/16 12:09 98.3 87 18 106/58 99 09/09/16 08:12 97.4 109 18 106/55 95 09/09/16 04:30 18 09/09/16 04:00 97.9 100 20 104/55 96 09/09/16 03:18 18 09/09/16 02:11 19 09/09/16 00:17 92 09/09/16 00:00 98.8 94 18 103/56 95 09/08/16 20:00 92 09/08/16 20:00 98.2 100 18 112/53 97 Coded Allergies: Toradol (Verified Allergy, Severe, Anaphylaxis, 09/05/16) Other Results Laboratory Tests Test 09/05/16 09/06/16 09/07/16 09/07/16 23:25 00:55 05:31 05:32 Lactic Acid Level 3.3 mmol/L Magnesium Level 2.4 MG/DL Total Bilirubin 0.2 MG/DL Aspartate Amino Transf 9 U/L (AST/SGOT) Alanine Aminotransferase 12 U/L (ALT/SGPT) Alkaline Phosphatase 204 U/L Albumin 2.6 GM/DL B-Hydroxybutyrate 0.10 MMOL/L Urine Color YELLOW Urine Turbidity CLEAR Urine pH 5.5 Urine Specific [place] 1.032 Urine Protein NEG mg/dL Urine Glucose (UA) 1000 OR GREATER mg/dL Urine Ketones NEG mg/dL Urine Occult Blood TRACE Urine Nitrite NEG Urine Bilirubin NEG Urine Leukocyte Esterase NEG Urine RBC 3-5 /hpf Urine WBC 0-2 /hpf Urine Squamous Epithelial 0-5 /hpf Cells Urine Bacteria NONE /hpf Microscopic Urinalysis Comment CULT NOT INDICATED Urine Opiates Screen POS Urine Barbiturates Screen NEG Urine Amphetamines Screen NEG Urine Benzodiazepines Screen POS Urine Cocaine Screen NEG Urine Cannabinoids Screen NEG White Blood Count 13.7 TH/MM3 Red Blood Count 2.63 MIL/MM3 Hemoglobin 7.4 GM/DL Hematocrit 22.9 % Mean Corpuscular Volume 87.2 FL Mean Corpuscular Hemoglobin 28.3 PG Mean Corpuscular Hemoglobin 32.4 % Concent Red Cell Distribution Width 16.2 % Platelet Count 255 TH/MM3 Mean Platelet Volume 9.8 FL Neutrophils (%) (Auto) 75.9 % Lymphocytes (%) (Auto) 13.7 % Monocytes (%) (Auto) 6.8 % Eosinophils (%) (Auto) 2.7 % Basophils (%) (Auto) 0.9 % Neutrophils # (Auto) 10.4 TH/MM3 Lymphocytes # (Auto) 1.9 TH/MM3 Monocytes # (Auto) 0.9 TH/MM3 Eosinophils # (Auto) 0.4 TH/MM3 Basophils # (Auto) 0.1 TH/MM3 CBC Comment DIFF FINAL Differential Comment Sodium Level 134 MEQ/L Potassium Level 4.0 MEQ/L Chloride Level 102 MEQ/L Carbon Dioxide Level 22.5 MEQ/L Anion Gap 10 MEQ/L Blood Urea Nitrogen 5 MG/DL Creatinine 0.70 MG/DL Estimat Glomerular Filtration 90 ML/MIN Rate Calcium Level 7.1 MG/DL Protein Corrected Calcium 7.8 MG/DL Total Protein 5.7 GM/DL Test 09/08/16 09/09/16 17:31 13:15 Random Glucose 572 MG/DL C-Reactive Protein 14.00 MG/DL Hepatitis A IgM Antibody NEGATIVE Hepatitis B Surface Antigen NEGATIVE Hepatitis B Core IgM Antibody NEGATIVE Hepatitis C Antibody NEGATIVE HIV (1&2) Antibody NEGATIVE Vancomycin Level Trough 7.5 MCG/ML Physical Exam Details LLE: Intact DP and PT. Intact dressing and no strikethrough. Muscle strength intact. Protective sensation is intact. Assessment & Plan Diagnosis: (1) Cellulitis of left foot Status: Acute (2) Diabetic foot infection Status: Acute A/P s/p I and D 09/08/[address] Medina Plan for OR on 09/10/[address] Orozco. OR at approximately 4 pm. Plan for 1) Wound debridement left ankle, 2) Reapplication of wound VAC. Plan for D/C with wound VAC and f/u with in 1 week of d/c with Dr Medina. Patient with abx per ID. Leeanne Orozco DPM Sep 09, 2016 19:45
[2016-09-09] MEDS ORDERED: VANCOMYCIN 1,500 MG/NS 500 ML IV SCH ×2 (20:00)
[2016-09-09] MEDS: INSULIN DETEMIR 100 UNITS/ML VIAL SQ SCH (21:55)
[2016-09-09] MEDS: HYDROmorphone HCL 2 MG TAB PO PRN (21:56)
[2016-09-09] MEDS: PRAZOSIN HCL 2 MG CAP PO SCH (21:56)
[2016-09-09] MEDS: QUEtiapine FUMARATE 200 MG TAB PO SCH (22:08)
[2016-09-10] VITALS (12 sets, daily range): BP systolic 77–163; BP diastolic 55–85; PULSE 84–135; RESP 16–22; TEMP 98.3–104.3; O2SAT 95–99
[2016-09-10] MEDS: CLINDAMYCIN 150 MG CAP PO SCH ×3 (01:10→11:29)
[2016-09-10] MEDS: HEPARIN SODIUM - SQ 10,000 UNITS/ML VIAL SQ SCH ×3 (03:12→20:31)
[2016-09-10] MEDS: CARISOPRODOL 350 MG TAB PO PRN ×3 (03:12→20:32)
[2016-09-10] MEDS: HYDROmorphone HCL 4 MG TAB PO PRN ×4 (03:13→18:17)
[2016-09-10] MEDS: PIPERACIL-TAZO 3.375 GM PREMIX 50 ML IV SCH ×2 (03:13→09:54)
[2016-09-10] MEDS: SODIUM CHLOR 0.9% 1000 ML INJ 1,000 ML IV SCH ×3 (03:14→23:00)
[2016-09-10] MEDS: HYDROmorphone HCL PF 1 MG/ML VIAL IV PUSH PRN ×2 (05:36→20:30)
[2016-09-10] MEDS: ALPRAZolam 1 MG TAB PO PRN ×2 (05:36→20:32)
[2016-09-10] MEDS: INSULIN ASPART 1,000 UNITS/10 ML VIAL SQ SCH ×3 (07:01→16:53)
[2016-09-10] MEDS: INSULIN DETEMIR 100 UNITS/ML VIAL SQ SCH ×2 (07:01→20:30)
[2016-09-10] MEDS: INSULIN NovoLIN REGULAR SUPPLEMENTAL SCALE SQ SCH ×4 (07:02→21:00)
[2016-09-10] MEDS: SODIUM CHLORID 0.9% 500 ML IV SCH (08:30)
[2016-09-10] MEDS: LACTATED RINGER'S 1000 ML IV SCH (09:53)
[2016-09-10] MEDS: carBAMazepine 200 MG TAB PO SCH ×2 (09:54→20:29)
[2016-09-10] MEDS: CALCIUM CARBONATE 1.25 GM (CA 500 MG) TAB PO SCH ×2 (09:54→20:29)
[2016-09-10] MEDS: GABAPENTIN 400 MG CAP PO SCH ×3 (09:54→20:29)
[2016-09-10] MEDS: SODIUM CHLORIDE 0.9% FLUSH 5 ML FLUSH FLUSH SCH ×2 (09:54→20:28)
[2016-09-10] MEDS: FLUCONAZOLE 200 MG TAB PO SCH (09:54)
[2016-09-10] MEDS: DEXTROSE 50% IN WATER 50 ML VIAL(D50) IV PUSH PRN ×2 (11:00→13:52)
[2016-09-10 11:11] LABS: AUTOMATED NEUTROPHIL # 5.4 TH/MM3 (1.8-7.7); BASOPHIL # 0.1 TH/MM3 (0-0.2); BASOPHIL % 1.1 % (0.0-2.0); EOSINOPHIL # 0.5 TH/MM3 (0-0.4); EOSINOPHIL % 6.2 % (0.0-4.0); HEMATOCRIT 25.1 % (35.0-46.0); LYMPH % 13.5 % (9.0-44.0); MEAN CELL VOLUME 85.7 FL (80.0-100.0); MEAN CORPUSCULAR HEMOGLOBIN 28.1 PG (27.0-34.0); MEAN CORPUSCULAR HGB CONC 32.8 % (32.0-36.0); MONO % 6.3 % (0.0-8.0); NEUT % 72.9 % (16.0-70.0); PLATELET COUNT 334 TH/MM3 (150-450); RED BLOOD COUNT 2.93 MIL/MM3 (4.00-5.30); RED CELL DISTRIBUTION WIDTH 16.6 % (11.6-17.2); WHITE BLOOD COUNT 7.4 TH/MM3 (4.0-11.0)
[2016-09-10 11:15] LABS: HEMO FLAGS AUTO DIFF
[2016-09-10] MEDS ORDERED: DEXT 5%-NACL 0.9% 1000 ML INJ 1,000 ML IV SCH (11:15)
[2016-09-10] MEDS: ACETAMINOPHEN 325 MG TAB PO PRN (11:45)
[2016-09-10 11:54] LABS: BANDS 2 % (0-6); BASOPHILS 1 % (0-2); EOSINOPHILS 7 % (0-4); METAMYELOCYTES 1 % (0-1); MYELOCYTES 2 % (0-0); NEUTROPHIL # MANUAL DIFF 5.3 TH/MM3 (1.8-7.7); POLYS (SEG NEUTROPHILS) 66 % (16-70); WBC DIFF SAMPLE 100
[2016-09-10 11:55] LABS: PLATELET ESTIMATE SMEAR NORMAL (NORMAL); PLATELET MORPHOLOGY NORMAL (NORMAL); SCAN/DIFF FINAL DIFF MANUAL
[2016-09-10] MEDS ORDERED: ACETAMINOPHEN 325 MG SUPP RECTAL PRN (12:00)
[2016-09-10] MEDS: cefTRIAXone INJ 2,000 MG in SODIUM CHLORIDE 0.9% INJ 100 ML IV SCH (14:20)
--- NOTE | 2016-09-10 15:05 | HHI.PR ---
Subjective Remarks Patient had low blood sugar 51 , then she looked fever of 104 She looks clammy, complain of mild headache, no chest pain or short of breath She is supposed to have another I&D and removing of the wound VAC today, podiatry was notified as well as ID with whom I discussed, podiatry may delay the procedure if fever continued Objective Vitals Vital Signs Date Time Temp Pulse Resp B/P Pulse Ox O2 Delivery O2 Flow Rate FiO2 09/10/16 13:51 102.4 09/10/16 13:04 102.5 117 22 129/70 95 09/10/16 12:40 103.4 09/10/16 12:10 104.3 135 20 163/85 97 09/10/16 08:06 99.1 117 18 77/ 99 09/10/16 07:06 18 09/10/16 05:38 98.3 91 17 124/71 95 09/10/16 04:13 49 09/10/16 04:13 49 09/10/16 02:00 102 09/10/16 00:42 98.3 92 18 116/70 95 09/09/16 20:38 98.2 95 18 123/69 97 09/09/16 16:19 97.6 102 19 129/68 96 I/O 09/09/16 09/09/16 09/09/16 09/10/16 09/10/16 09/10/16 06:59 14:59 22:59 06:59 14:59 22:59 Intake Total 240 ml 720 ml 740 ml 1430 ml 360 ml Balance 240 ml 720 ml 740 ml 1430 ml 360 ml Intake Oral 240 ml 720 ml 740 ml 480 ml 360 ml IV Total 950 ml # Voids 3 6 5 4 # Bowel Movements 0 1 1 Result Diagram: 09/10/16 1036 09/08/16 1731 Objective Remarks - GENERAL: This is a well-nourished, well-developed patient,- SKIN: No rashes, warm and dry HEAD: Atraumatic. Normocephalic. EYES: Pupils equal round and reactive. Extraocular motions intact. No scleral icterus. ENT: Nose without bleeding, or drainage, Airway patent. NECK: Trachea midline. Supple CARDIOVASCULAR: Regular rate and rhythm without murmurs, gallops, or rubs. RESPIRATORY: Fair air entry bilaterally. No wheezes, rales, or rhonchi. GASTROINTESTINAL: Abdomen soft, non-tender, nondistended. Positive bowel sounds MUSCULOSKELETAL: Extremities without clubbing, cyanosis, or edema. Pedal pulses appreciated NEUROLOGICAL: Awake and alert. Moves all extremity. Normal speech.no focal neurological deficit A/P Assessment and Plan A/P: - 09/10: Hyperglycemia: Mostly due to getting morning Levemir patient is nothing by mouth for late afternoon surgery, we placed on D5 normal saline, Accu -Chek every hour, apply hypoglycemia protocol - Spiking fever 104 with nausea: Central blood culture, Tylenol rectally,D/ W ID, change antibiotic to Rocephin and Diflucan iv, podiatry will reschedule surgery for tomorrow, we'll feed the patient - Infected diabetic left foot gangrene/necrotizing fasciitis status post I&D - Sepsis due to above - Uncontrolled diabetes mellitus with episodes of hypoglycemia. - Hypocalcemia - Gastroparesis History - History of PTSD, anxiety. - Chronic pain syndrome with neck surgery in the past. - History of IV drug abuse in the past and positive cocaine in the urine drug screen last year. PLAN D5 normal saline with every hour Accu-Cheks, hypoglycemia protocol Podiatry following plan for another I&D and removing wound VAC today, if surgery to be delayed I discussed with nurse to provide food to the patient Calcium carbonate for hypocalcemia Change Dilaudid by mouth 2 every 4 hours 4 milligram versus 2 mg with pain scale - Gabapentin 600 mg on as needed basis. - Broad spectrum antibiotic. - Antibiotic management per ID as above - Continue home medications. - Antiemetics on a p.r.n. basis. - Discussed with Dr. Sandoval the admitted physician Melissa Bella MD Sep 10, 2016 15:05
[2016-09-10] MEDS: FLUCONAZOLE 400 MG PREMIX BAG 200 ML IV SCH (15:24)
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
[2016-09-10] MEDS: QUEtiapine FUMARATE 200 MG TAB PO SCH (20:29)
[2016-09-10] MEDS: PRAZOSIN HCL 2 MG CAP PO SCH (20:30)
[2016-09-10] MEDS: HYDROmorphone HCL 2 MG TAB PO PRN (22:38)
[2016-09-11] VITALS (13 sets, daily range): BP systolic 103–157; BP diastolic 58–93; PULSE 80–143; RESP 18–22; TEMP 97–101.1; O2SAT 86–99
[2016-09-11] MEDS: HYDROmorphone HCL PF 1 MG/ML VIAL IV PUSH PRN ×5 (00:36→22:23)
[2016-09-11] MEDS: SODIUM CHLORID 0.9% 500 ML IV SCH (01:10)
[2016-09-11] MEDS: ALPRAZolam 1 MG TAB PO PRN ×3 (05:32→21:10)
[2016-09-11] MEDS: HYDROmorphone HCL 2 MG TAB PO PRN (05:32)
[2016-09-11 05:52] LABS: HEMATOCRIT 25.5 % (35.0-46.0); MEAN CELL VOLUME 85.4 FL (80.0-100.0); MEAN CORPUSCULAR HEMOGLOBIN 28.4 PG (27.0-34.0); MEAN CORPUSCULAR HGB CONC 33.3 % (32.0-36.0); PLATELET COUNT 249 TH/MM3 (150-450); RED BLOOD COUNT 2.99 MIL/MM3 (4.00-5.30); RED CELL DISTRIBUTION WIDTH 17.2 % (11.6-17.2); WHITE BLOOD COUNT 7.2 TH/MM3 (4.0-11.0)
[2016-09-11 05:57] LABS: HEMO FLAGS AUTO DIFF
[2016-09-11] MEDS: INSULIN NovoLIN REGULAR SUPPLEMENTAL SCALE SQ SCH ×4 (07:00→21:00)
[2016-09-11] MEDS ORDERED: fentaNYL CITRATE 250 MCG/5 ML AMP ONE (07:05)
[2016-09-11] MEDS ORDERED: MIDAZOLAM HCL 2 MG/2 ML VIAL ONE ×2 (07:16)
[2016-09-11] MEDS: LACTATED RINGER'S 1000 ML IV SCH (07:30)
[2016-09-11] MEDS ORDERED: LIDOCAINE HCL 2% PF SOLN 10 ML VIAL ONE (07:33)
[2016-09-11] MEDS ORDERED: BUPIVACAINE HCL PF 0.5% 30 ML VIAL ONE (07:33)
[2016-09-11] MEDS ORDERED: PHARMACY ORDERED LAB XX ONE (07:45)
[2016-09-11 07:54] LABS: BANDS 1 % (0-6); EOSINOPHILS 6 % (0-4); METAMYELOCYTES 2 % (0-1); NEUTROPHIL # MANUAL DIFF 4.8 TH/MM3 (1.8-7.7); POLYS (SEG NEUTROPHILS) 63 % (16-70); WBC DIFF SAMPLE 100
[2016-09-11 07:55] LABS: PLATELET ESTIMATE SMEAR NORMAL (NORMAL); PLATELET MORPHOLOGY CLUMPED (NORMAL); SCAN/DIFF FINAL DIFF MANUAL
[2016-09-11] MEDS: INSULIN ASPART 1,000 UNITS/10 ML VIAL SQ SCH ×3 (08:00→17:06)
[2016-09-11] MEDS ORDERED: NEOMYCIN/POLYMYXIN 1 ML G.U. IRRIGANT IR ONE (08:00)
[2016-09-11] MEDS ORDERED: DO NOT ADM ANY ANTICOAGULANT DRUGS XX PRN (08:49)
[2016-09-11] MEDS ORDERED: *HYDROmorphone PF 1 MG VIAL PERIprocedural Use ONLY ONE ×2 (08:58→09:12)
[2016-09-11] MEDS: SODIUM CHLORIDE 0.9% FLUSH 5 ML FLUSH FLUSH SCH ×2 (09:00→21:11)
[2016-09-11] MEDS: CALCIUM CARBONATE 1.25 GM (CA 500 MG) TAB PO SCH ×3 (09:00→21:10)
[2016-09-11] MEDS: SODIUM CHLOR 0.9% 1000 ML INJ 1,000 ML IV SCH ×2 (09:00→18:05)
[2016-09-11] MEDS: INSULIN DETEMIR 100 UNITS/ML VIAL SQ SCH ×2 (09:01→21:11)
[2016-09-11] MEDS: carBAMazepine 200 MG TAB PO SCH ×3 (09:02→21:11)
[2016-09-11] MEDS: GABAPENTIN 400 MG CAP PO SCH ×4 (09:02→21:10)
[2016-09-11] MEDS ORDERED: *MEPERIDINE 25 MG INJ VIAL PERIprocedural Use ONLY ONE (09:05)
[2016-09-11] MEDS ORDERED: *hydrOXYzine 25 MG VIAL PERIprocedural Use ONLY IM ONE (09:12)
[2016-09-11] MEDS: HYDROmorphone HCL 4 MG TAB PO PRN ×3 (09:56→21:11)
[2016-09-11] MEDS ORDERED: ONDANSETRON HCL 4 MG/2 ML VIAL IV PUSH ONE (10:45)
[2016-09-11] MEDS ORDERED: NEOSTIGMINE 3 MG/3 ML SYR IV ONE (10:45)
[2016-09-11] MEDS ORDERED: PROPOFOL 200 MG/20 ML AMP IV ONE (10:45)
[2016-09-11] MEDS ORDERED: INSULIN DETEMIR 100 UNITS/ML VIAL SQ ONE (11:15)
[2016-09-11] MEDS: CARISOPRODOL 350 MG TAB PO PRN ×3 (11:36→21:10)
[2016-09-11] MEDS: cefTRIAXone INJ 2,000 MG in SODIUM CHLORIDE 0.9% INJ 100 ML IV SCH (13:42)
[2016-09-11] MEDS: HEPARIN SODIUM - SQ 10,000 UNITS/ML VIAL SQ SCH ×2 (14:38→23:48)
[2016-09-11] MEDS: FLUCONAZOLE 400 MG PREMIX BAG 200 ML IV SCH (15:00)
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
[2016-09-11] MEDS: PRAZOSIN HCL 2 MG CAP PO SCH (21:10)
[2016-09-11] MEDS: QUEtiapine FUMARATE 200 MG TAB PO SCH (21:10)
[2016-09-11] MEDS: ACETAMINOPHEN 325 MG TAB PO PRN (22:45)
[2016-09-12] VITALS (8 sets, daily range): BP systolic 98–147; BP diastolic 57–89; PULSE 82–142; RESP 16–21; TEMP 97.6–103.1; O2SAT 92–98
[2016-09-12] MEDS ORDERED: HYDROmorphone HCL PF 1 MG/ML VIAL IV PUSH ONE
[2016-09-12] MEDS: HYDROmorphone HCL 4 MG TAB PO PRN ×4 (01:38→16:01)
[2016-09-12] MEDS: SODIUM CHLOR 0.9% 1000 ML INJ 1,000 ML IV SCH ×2 (01:41→14:10)
[2016-09-12] MEDS: INSULIN NovoLIN REGULAR SUPPLEMENTAL SCALE SQ SCH ×4 (06:09→21:00)
[2016-09-12] MEDS: INSULIN ASPART 1,000 UNITS/10 ML VIAL SQ SCH ×3 (08:00→16:02)
--- NOTE | 2016-09-12 08:14 | MP ---
cc: NOEL OROZCO DPM DATE OF SURGERY 09/11/2016 SURGEON TONY Orozco PREOPERATIVE DIAGNOSIS Left foot wound. POSTOPERATIVE DIAGNOSIS Left foot wound. PROCEDURE 1. Left ankle wound debridement. 2. Left ankle application of wound VAC. ANESTHESIOLOGIST Dr. Moore. ANESTHESIA General. HEMOSTASIS Left ankle tourniquet at 250 mmHg 18 minutes. ESTIMATED BLOOD LOSS Less than 5 cc. MATERIALS Wound VAC sponge. INJECTABLES Preoperatively 19 cc of a 1:1 mixture of 2% lidocaine plain along with 0.5% Marcaine plain. BRIEF HISTORY The patient is a 45-year-old female who underwent I&D and wound debridement with Dr. Medina on two occasions. She continued to have malodor, necrotic tissue and drainage. She was taken back to the OR for additional wound debridement, irrigation and application of wound VAC. The risks, benefits, pros and cons were discussed with the patient. She freely consented to surgical intervention. No guarantees were given nor implied. All questions answered. PROCEDURE IN DETAIL The patient was brought into the operating room, placed on the operating room table in supine position after general anesthesia was administered, time-out was called, appropriate site and identification noted. Attention was then directed to the left ankle where a left ankle block was carried out, non-sterilely with 19 cc of a 1:1 mixture of 2% lidocaine plain along with 0.5% Marcaine plain in a 1:1 mixture. Attention was then directed to the left foot which was prepped, scrubbed and draped in the usual sterile aseptic manner. Attention was then directed to the left foot where necrotic nonviable tissue was sharply debrided using a #15 blade which gave sharp excisional debridement of necrotic and nonviable tissue. There are no active bleeders. The wound was freed in all planes medial and lateral, distal and proximal. No additional purulence was noted, no malodor noted. Bleeders were Bovied as necessary. The ankle was irrigated with a bulb syringe and 3 units of . The wound VAC was then reapplied onto the wound measuring 12-cm x 5-cm in width with a depth of 0.3 cm. The wound VAC was applied with appropriate seal and suction. Dry sterile dressings were applied using 4x4s, Zhang and a light Tim wrap. The patient tolerated procedure. At completion she will be transferred back to the PACU for a brief period of postop monitoring after which she will be discharged to the floor. We will plan for follow up with Dr. Medina within a week of discharge. She also will need a wound VAC to be discharged home. Noel Orozco DPM SR/PAULINO /5:19 PM /7:53 AM
[2016-09-12] MEDS: INSULIN DETEMIR 100 UNITS/ML VIAL SQ SCH ×2 (08:21→21:08)
[2016-09-12] MEDS: CALCIUM CARBONATE 1.25 GM (CA 500 MG) TAB PO SCH ×2 (08:22→21:06)
[2016-09-12] MEDS: GABAPENTIN 400 MG CAP PO SCH ×3 (08:22→21:07)
[2016-09-12] MEDS: carBAMazepine 200 MG TAB PO SCH ×2 (08:22→21:06)
[2016-09-12] MEDS: SODIUM CHLORIDE 0.9% FLUSH 5 ML FLUSH FLUSH SCH ×2 (08:22→21:00)
[2016-09-12] MEDS: LACTATED RINGER'S 1000 ML IV SCH (08:22)
[2016-09-12] MEDS ORDERED: Vancomycin Consult Pharmacy 1 EA OTHER SCH (08:30)
[2016-09-12] MEDS: ALPRAZolam 1 MG TAB PO PRN ×3 (08:32→21:07)
[2016-09-12] MEDS: CARISOPRODOL 350 MG TAB PO PRN ×2 (08:32→17:29)
--- NOTE | 2016-09-12 08:49 | RADRPT ---
EXAM DATE/TIME: 09/12/2016 08:32 [place] COMPARISON: CHEST SINGLE AP, September 06, 2016, 16:51. INDICATIONS : Evaluate for pneumonia, Pain right lower chest MEDICAL HISTORY : None. SURGICAL HISTORY : None. ENCOUNTER: Initial ACUITY: 1 week PAIN SCORE: 3/10 LOCATION: Bilateral chest FINDINGS: Portable AP view of the chest demonstrates a normal-sized cardiac silhouette. No effusion, consolidat ion, or pneumothorax is visualized. The bones and soft tissues demonstrate no acute abnormality. Cerv ical spine hardware is present. There is a left IJ central line present with distal tip in the superi or vena cava. CONCLUSION: Stable chest x-ray. No acute cardiopulmonary abnormality is identified. Bill Gaxiola MD on September 12, 2016 at 8:46 Board Certified Radiologist. This report was verified electronically.
[2016-09-12] MEDS: CEFEPIME INJ 2,000 MG in SODIUM CHLORIDE 0.9% INJ 100 ML IV SCH ×2 (10:24→17:16)
[2016-09-12] MEDS: HYDROmorphone HCL PF 1 MG/ML VIAL IV PUSH PRN ×3 (10:30→17:29)
[2016-09-12 10:48] LABS: BASOPHIL # 0.1 TH/MM3 (0-0.2); BASOPHIL % 0.8 % (0.0-2.0); EOSINOPHIL # 0.1 TH/MM3 (0-0.4); EOSINOPHIL % 0.7 % (0.0-4.0); HEMATOCRIT 22.7 % (35.0-46.0); LYMPH % 7.6 % (9.0-44.0); LYMPHOCYTE # 0.9 TH/MM3 (1.0-4.8); MEAN CELL VOLUME 85.6 FL (80.0-100.0); MEAN CORPUSCULAR HEMOGLOBIN 28.4 PG (27.0-34.0); MEAN CORPUSCULAR HGB CONC 33.2 % (32.0-36.0); MONO % 1.3 % (0.0-8.0); NEUT % 89.6 % (16.0-70.0); PLATELET COUNT 288 TH/MM3 (150-450); RED BLOOD COUNT 2.65 MIL/MM3 (4.00-5.30); RED CELL DISTRIBUTION WIDTH 16.9 % (11.6-17.2); WHITE BLOOD COUNT 12.3 TH/MM3 (4.0-11.0)
[2016-09-12 10:49] LABS: HEMO FLAGS AUTO DIFF
[2016-09-12 11:23] LABS: ALKALINE PHOSPHATASE 508 U/L (45-117); ALT (GPT) 50 U/L (10-53); ANION GAP 8 MEQ/L (5-15); AST (GOT) 69 U/L (15-37); BICARBONATE 28.5 MEQ/L (21.0-32.0); BLOOD UREA NITROGEN 6 MG/DL (7-18); CHLORIDE 102 MEQ/L (98-107); GLOMERULAR FILTRATION RATE 95 ML/MIN (>89); SODIUM (NA) 138 MEQ/L (136-145); TOTAL BILIRUBIN ADULT 0.1 MG/DL (0.2-1.0)
[2016-09-12 11:26] LABS: SCAN/DIFF AUTO DIFF CONFIRMED
[2016-09-12] MEDS: VANCOMYCIN INJ 1,500 MG in SODIUM CHLORID 0.9% 500 ML INJ 500 ML IV SCH (11:26)
[2016-09-12] MEDS: HEPARIN SODIUM - SQ 10,000 UNITS/ML VIAL SQ SCH (11:26)
[2016-09-12] MEDS: FLUCONAZOLE 400 MG PREMIX BAG 200 ML IV SCH (14:10)
--- NOTE | 2016-09-12 15:35 | HHI.PR ---
Subjective Remarks Patient continued to run fever 101.5, 102, heart rate is tachycardic I discussed with the nurse, we unwrapped her wound and her foot looks extremely swollen and erythematous on the dorsal side Objective Vitals Vital Signs Date Time Temp Pulse Resp B/P Pulse Ox O2 Delivery O2 Flow Rate FiO2 09/12/16 15:00 103.1 123 20 147/82 94 09/12/16 14:40 18 09/12/16 14:18 101.5 142 16 117/88 96 09/12/16 13:18 20 09/12/16 12:07 98.9 98 18 120/67 95 09/12/16 09:21 20 09/12/16 08:28 98.7 107 16 117/57 93 09/12/16 04:00 99.0 117 21 120/89 98 09/11/16 23:25 101.0 125 20 152/82 98 09/11/16 23:00 119 22 155/86 99 09/11/16 22:49 96 09/11/16 22:47 90 09/11/16 22:45 101.1 143 22 157/93 86 09/11/16 21:00 97.8 95 19 122/82 99 09/11/16 20:00 96 09/11/16 16:18 97.1 96 18 118/66 99 I/O 09/11/16 09/11/16 09/11/16 09/12/16 09/12/16 09/12/16 07:00 15:00 23:00 07:00 15:00 23:00 Intake Total 900 ml 500 ml 850 ml 1080 ml 2570 ml Output Total 1000 ml 360 ml 1200 ml 25 ml Balance -100 ml 140 ml 850 ml -120 ml 2545 ml Intake Oral 900 ml 0 ml 850 ml 1080 ml IV Total 150 ml 2570 ml Other 350 ml Output Urine Total 1000 ml 360 ml 1200 ml Drainage Total 25 ml # Voids 3 2 # Bowel Movements 0 0 0 Result Diagram: 09/12/16 1015 09/12/16 1015 Objective Remarks - GENERAL: This is a well-nourished, well-developed patient,- SKIN: Left foot with significant erythematous swelling on the dorsal side HEAD: Atraumatic. Normocephalic. EYES: Pupils equal round and reactive. Extraocular motions intact. No scleral icterus. ENT: Nose without bleeding, or drainage, Airway patent. NECK: Trachea midline. Supple CARDIOVASCULAR: Regular rate and rhythm without murmurs, gallops, or rubs. RESPIRATORY: Fair air entry bilaterally. No wheezes, rales, or rhonchi. GASTROINTESTINAL: Abdomen soft, non-tender, nondistended. Positive bowel sounds , left foot as above MUSCULOSKELETAL: Extremities without clubbing, cyanosis, or edema. Pedal pulses appreciated NEUROLOGICAL: Awake and alert. Moves all extremity. Normal speech.no focal neurological deficit A/P Assessment and Plan A/P: - 09/12: Continue to spike fever 101.5 today : Left foot looks swollen and erythematous very tender on the dorsal side, contacted podiatry he stated he looked at the foot this morning and he is okay with that, stated okay to keep unwrapped D/W ID this morning and again at the bedside, she requested DC central line and replace with peripheral, send blood culture one from the central line, broaden antibiotic to cefepime continue Diflucan iv, wound culture showed La albicans, follow cultures for wound and blood . Also requested checking drug screen and Doppler ultrasound of the left leg rule out DVT -Blood sugar is in better controlled today she was given 20 units of Levemir was morning since she was nothing by mouth for the procedure, will continue on her daily regimen and adjust - Infected diabetic left foot gangrene/necrotizing fasciitis status post I&D - Sepsis due to above - Uncontrolled diabetes mellitus with episodes of hypoglycemia. - Hypocalcemia - Gastroparesis History - History of PTSD, anxiety. - Chronic pain syndrome with neck surgery in the past. - History of IV drug abuse in the past and positive cocaine in the urine drug screen last year. PLAN D5 normal saline with every hour Accu-Cheks, hypoglycemia protocol Podiatry following plan for another I&D and removing wound VAC today, if surgery to be delayed I discussed with nurse to provide food to the patient Calcium carbonate for hypocalcemia Change Dilaudid by mouth 2 every 4 hours 4 milligram versus 2 mg with pain scale - Gabapentin 600 mg on as needed basis. - Broad spectrum antibiotic. - Antibiotic management per ID as above - Continue home medications. - Antiemetics on a p.r.n. basis. - Discussed with Dr. Sandoval the admitted physician Melissa Bella MD Sep 12, 2016 15:35
[2016-09-12 16:58] LABS: BLOOD, URINE NEG (NEG); COMMENT (UR) CATH-CULT NOT IND; CULTURE IF INDICATED CATH CULTURE NOT IND; GLUCOSE,URINE 1000 mg/dL (NEG); KETONE, URINE NEG (NEG); NITRITE,URINE NEG (NEG); PH, URINE 6.5 (5.0-8.5); RENAL EPITHELIAL CELLS <1 /hpf; SQUAMOUS EPITHELIAL CELL URINE 1 /hpf (0-5); URINE COLOR YELLOW (YELLW/STRAW)
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
--- NOTE | 2016-09-12 19:29 | PD.POD ---
Subjective Podiatric Problems s/p Left ankle I and D with Dr Medina 09/08/16 s/p Left ankle wound debridement and wound VAC application with Dr Pam ALEXANDER Doing well at bedside this am. Pain scale used: 0-10 numeric scale Pain score: 4 Past Med/Surg/Social History Social History Smoking Status: Never Smoker Objective Vital Signs Vital Signs Date Time Temp Pulse Resp B/P Pulse Ox O2 Delivery O2 Flow Rate FiO2 09/12/16 17:59 20 09/12/16 17:59 20 09/12/16 17:01 18 09/12/16 15:00 103.1 123 20 147/82 94 09/12/16 14:18 101.5 142 16 117/88 96 09/12/16 12:07 98.9 98 18 120/67 95 09/12/16 08:28 98.7 107 16 117/57 93 09/12/16 04:00 99.0 117 21 120/89 98 09/11/16 23:25 101.0 125 20 152/82 98 09/11/16 23:00 119 22 155/86 99 09/11/16 22:49 96 09/11/16 22:47 90 09/11/16 22:45 101.1 143 22 157/93 86 09/11/16 21:00 97.8 95 19 122/82 99 09/11/16 20:00 96 Coded Allergies: Toradol (Verified Allergy, Severe, Anaphylaxis, 09/05/16) Other Results Laboratory Tests Test 09/08/16 09/09/16 09/10/16 09/11/16 17:31 13:15 10:36 05:20 C-Reactive Protein 14.00 MG/DL Hepatitis A IgM Antibody NEGATIVE Hepatitis B Surface Antigen NEGATIVE Hepatitis B Core IgM Antibody NEGATIVE Hepatitis C Antibody NEGATIVE HIV (1&2) Antibody NEGATIVE Vancomycin Level Trough 7.5 MCG/ML Basophils % 1 % Myelocytes 2 % Differential Total Cells 100 Counted Neutrophils % (Manual) 63 % Band Neutrophils % 1 % Lymphocytes % 23 % Monocytes % 5 % Eosinophils % 6 % Neutrophils # (Manual) 4.8 TH/MM3 Metamyelocytes 2 % Platelet Estimate NORMAL Platelet Morphology Comment CLUMPED Test 09/12/16 09/12/16 10:15 16:30 White Blood Count 12.3 TH/MM3 Red Blood Count 2.65 MIL/MM3 Hemoglobin 7.5 GM/DL Hematocrit 22.7 % Mean Corpuscular Volume 85.6 FL Mean Corpuscular Hemoglobin 28.4 PG Mean Corpuscular Hemoglobin 33.2 % Concent Red Cell Distribution Width 16.9 % Platelet Count 288 TH/MM3 Mean Platelet Volume 8.2 FL Neutrophils (%) (Auto) 89.6 % Lymphocytes (%) (Auto) 7.6 % Monocytes (%) (Auto) 1.3 % Eosinophils (%) (Auto) 0.7 % Basophils (%) (Auto) 0.8 % Neutrophils # (Auto) 11.0 TH/MM3 Lymphocytes # (Auto) 0.9 TH/MM3 Monocytes # (Auto) 0.2 TH/MM3 Eosinophils # (Auto) 0.1 TH/MM3 Basophils # (Auto) 0.1 TH/MM3 CBC Comment AUTO DIFF Differential Comment AUTO DIFF CONFIRMED Red Cell Morphology Comment NORMAL Sodium Level 138 MEQ/L Potassium Level 4.0 MEQ/L Chloride Level 102 MEQ/L Carbon Dioxide Level 28.5 MEQ/L Anion Gap 8 MEQ/L Blood Urea Nitrogen 6 MG/DL Creatinine 0.67 MG/DL Estimat Glomerular Filtration 95 ML/MIN Rate Random Glucose 235 MG/DL Calcium Level 8.5 MG/DL Total Bilirubin 0.1 MG/DL Aspartate Amino Transf 69 U/L (AST/SGOT) Alanine Aminotransferase 50 U/L (ALT/SGPT) Alkaline Phosphatase 508 U/L Total Protein 6.1 GM/DL Albumin 2.1 GM/DL Urine Color YELLOW Urine Turbidity CLEAR Urine pH 6.5 Urine Specific [place] 1.013 Urine Protein TRACE mg/dL Urine Glucose (UA) 1000 mg/dL Urine Ketones NEG mg/dL Urine Occult Blood NEG Urine Nitrite NEG Urine Bilirubin NEG Urine Urobilinogen LESS THAN 2.0 MG/DL Urine Leukocyte Esterase NEG Urine RBC 2 /hpf Urine WBC 2 /hpf Urine Squamous Epithelial 1 /hpf Cells Urine Renal Epithelial Cells <1 /hpf Microscopic Urinalysis Comment CATH-CULT NOT IND Urine Eosinophils NONE SEEN /HPF Physical Exam Details LLE Intact VAC. No erythema at the digits and foot. No calf pain and no swelling Warm LE. Assessment & Plan Diagnosis: (1) Cellulitis of left foot Status: Acute (2) Diabetic foot infection Status: Acute A/P s/p I and D 09/08/[address] Medina s/p Left ankle wound debridement and wound VAC application with Dr Pam ALEXANDER Patient evaluate at 10.30 on am rounding. Was called by nursing at 2.30 pm . Patient was tachycardic and elevated temp. Patient used tape around her left calf. Patient evaluated by Medicine and ID. Central line culture and taken out. VAC left intact. Discussed with nursing at 6.30 pm, patient pain, temp and swelling is improved. Leeanne Orozco DPM Sep 12, 2016 19:29
[2016-09-12] MEDS: PRAZOSIN HCL 2 MG CAP PO SCH (21:00)
[2016-09-12] MEDS: HYDROmorphone HCL 2 MG TAB PO PRN (21:11)
[2016-09-12] MEDS: QUEtiapine FUMARATE 200 MG TAB PO SCH (21:17)
--- NOTE | 2016-09-12 21:53 | RADRPT ---
EXAM DATE/TIME: 09/12/2016 17:55 [place] COMPARISON: No previous studies available for comparison. INDICATIONS : Left leg swelling and fever. MEDICAL HISTORY : Seizures. . Myocardial infarction. Neck pain. Renal disease. Arthritis. Diabetes. Post tr aumatic stress disorder. Gastroporesis.Blood transfusion. Anxiety. SURGICAL HISTORY : Cholecystectomy. Neck surgery. Back surgery. Right shoulder surgery. Salpingectomy. ENCOUNTER: Initial ACUITY: 1 day PAIN SCORE: 7/10 LOCATION: Left leg. TECHNIQUE: Venous ultrasound of the leg was performed from the inguinal ligament to the proximal calf. Real-oleg e, color Doppler and spectral tracing, compression and augmentation techniques were used. FINDINGS: There is normal compressibility of the deep venous system from the inguinal region to the proximal ca lf. No echogenic clot is seen in the lumen of the common femoral, femoral, popliteal, and posterior tibial veins. There is a normal response of the venous system to proximal and distal augmentation an d respiration. Iliac vein is open patent. There are left groin lymph nodes benign appearance largest 2.3 cm in size CONCLUSION: Negative for DVT. Nonspecific left groin lymph nodes Francois Boothe MD on September 12, 2016 at 21:51 Board Certified Radiologist. This report was verified electronically.
[2016-09-13] VITALS: BP 124/68; PULSE 85; RESP 22; TEMP 98.9; O2SAT 94
[2016-09-13 00:46] LABS: AMPHETAMINE, URINE NEG (NEG); BARBITURATES, URINE NEG (NEG); COCAINE, URINE NEG (NEG)
[2016-09-13] MEDS: HYDROmorphone HCL 4 MG TAB PO PRN ×3 (00:52→19:56)
[2016-09-13] MEDS: CARISOPRODOL 350 MG TAB PO PRN ×3 (00:52→14:53)
[2016-09-13] MEDS: SODIUM CHLOR 0.9% 1000 ML INJ 1,000 ML IV SCH ×3 (01:00→19:58)
[2016-09-13] MEDS: CEFEPIME INJ 2,000 MG in SODIUM CHLORIDE 0.9% INJ 100 ML IV SCH ×4 (02:00→17:53)
[2016-09-13 04:00] VITALS: BP 172/88; PULSE 82; RESP 20; TEMP 98.3; O2SAT 93
[2016-09-13] MEDS: HEPARIN SODIUM - SQ 10,000 UNITS/ML VIAL SQ SCH ×2 (05:49→14:48)
[2016-09-13] MEDS: INSULIN NovoLIN REGULAR SUPPLEMENTAL SCALE SQ SCH ×4 (05:49→21:00)
[2016-09-13] MEDS: HYDROmorphone HCL 2 MG TAB PO PRN ×2 (07:26→12:00)
[2016-09-13 07:37] LABS: AUTOMATED NEUTROPHIL # 5.9 TH/MM3 (1.8-7.7); BASOPHIL # 0.1 TH/MM3 (0-0.2); BASOPHIL % 1.1 % (0.0-2.0); EOSINOPHIL # 0.3 TH/MM3 (0-0.4); HEMATOCRIT 23.4 % (35.0-46.0); HEMO FLAGS DIFF FINAL; LYMPH % 19.4 % (9.0-44.0); LYMPHOCYTE # 1.7 TH/MM3 (1.0-4.8); MEAN CELL VOLUME 87.1 FL (80.0-100.0); MEAN CORPUSCULAR HEMOGLOBIN 28.3 PG (27.0-34.0); MEAN CORPUSCULAR HGB CONC 32.5 % (32.0-36.0); MONO % 7.6 % (0.0-8.0); NEUT % 67.9 % (16.0-70.0); PLATELET COUNT 184 TH/MM3 (150-450); RED BLOOD COUNT 2.69 MIL/MM3 (4.00-5.30); RED CELL DISTRIBUTION WIDTH 17.1 % (11.6-17.2); WHITE BLOOD COUNT 8.7 TH/MM3 (4.0-11.0)
[2016-09-13] MEDS: ALPRAZolam 1 MG TAB PO PRN ×2 (07:51→14:53)
[2016-09-13 07:57] LABS: BICARBONATE 26.6 MEQ/L (21.0-32.0); POTASSIUM 3.6 MEQ/L (3.5-5.1)
[2016-09-13 08:00] VITALS: BP 148/68; PULSE 86; RESP 20; TEMP 98.1; O2SAT 99
[2016-09-13] MEDS: INSULIN ASPART 1,000 UNITS/10 ML VIAL SQ SCH ×3 (08:17→17:54)
[2016-09-13] MEDS: INSULIN DETEMIR 100 UNITS/ML VIAL SQ SCH ×2 (08:17→19:57)
[2016-09-13] MEDS: GABAPENTIN 400 MG CAP PO SCH ×3 (08:18→19:56)
[2016-09-13] MEDS: CALCIUM CARBONATE 1.25 GM (CA 500 MG) TAB PO SCH ×2 (08:18→19:57)
[2016-09-13] MEDS: carBAMazepine 200 MG TAB PO SCH ×2 (08:18→19:57)
[2016-09-13] MEDS: SODIUM CHLORIDE 0.9% FLUSH 5 ML FLUSH FLUSH SCH ×2 (08:19→19:58)
[2016-09-13] MEDS: LACTATED RINGER'S 1000 ML IV SCH (08:30)
[2016-09-13] MEDS: HYDROmorphone HCL PF 1 MG/ML VIAL IV PUSH PRN (11:20)
[2016-09-13 12:00] VITALS: BP 121/86; PULSE 86; RESP 18; TEMP 97.9; O2SAT 100
[2016-09-13] MEDS: VANCOMYCIN INJ 1,500 MG in SODIUM CHLORID 0.9% 500 ML INJ 500 ML IV SCH ×3 (12:01)
[2016-09-13] MEDS: FLUCONAZOLE 400 MG PREMIX BAG 200 ML IV SCH ×2 (14:48→15:24)
[2016-09-13 16:00] VITALS: BP 128/84; PULSE 86; RESP 20; TEMP 98.1; O2SAT 100
--- NOTE | 2016-09-13 16:17 | PD.POD ---
Subjective Podiatric Problems s/p Left ankle I and D with Dr Medina 09/08/16 s/p Left ankle wound debridement and wound VAC application with Dr Pam ALEXANDER Pain is better no calf pain today but still 10/10 Pain scale used: 0-10 numeric scale Pain score: 10 Past Med/Surg/Social History Social History Smoking Status: Never Smoker Objective Vital Signs Vital Signs Date Time Temp Pulse Resp B/P Pulse Ox O2 Delivery O2 Flow Rate FiO2 09/13/16 13:00 18 09/13/16 12:00 97.9 86 18 121/86 100 09/13/16 11:50 18 09/13/16 08:51 18 09/13/16 08:00 98.1 86 20 148/68 99 09/13/16 04:00 98.3 82 20 172/88 93 09/13/16 00:00 98.9 85 22 124/68 94 09/12/16 20:15 98.9 95 20 103/62 94 09/12/16 19:15 98.7 96 18 98/62 92 09/12/16 17:01 18 Coded Allergies: Toradol (Verified Allergy, Severe, Anaphylaxis, 09/05/16) Other Results Laboratory Tests Test 09/08/16 09/09/16 09/10/16 09/11/16 17:31 13:15 10:36 05:20 Hepatitis A IgM Antibody NEGATIVE Hepatitis B Surface Antigen NEGATIVE Hepatitis B Core IgM Antibody NEGATIVE Hepatitis C Antibody NEGATIVE HIV (1&2) Antibody NEGATIVE Vancomycin Level Trough 7.5 MCG/ML Basophils % 1 % Myelocytes 2 % Differential Total Cells 100 Counted Neutrophils % (Manual) 63 % Band Neutrophils % 1 % Lymphocytes % 23 % Monocytes % 5 % Eosinophils % 6 % Neutrophils # (Manual) 4.8 TH/MM3 Metamyelocytes 2 % Platelet Estimate NORMAL Platelet Morphology Comment CLUMPED Test 09/12/16 09/12/16 09/13/16 10:15 16:30 05:57 Red Cell Morphology Comment NORMAL Total Bilirubin 0.1 MG/DL Aspartate Amino Transf 69 U/L (AST/SGOT) Alanine Aminotransferase 50 U/L (ALT/SGPT) Alkaline Phosphatase 508 U/L Total Protein 6.1 GM/DL Albumin 2.1 GM/DL Urine Color YELLOW Urine Turbidity CLEAR Urine pH 6.5 Urine Specific [place] 1.013 Urine Protein TRACE mg/dL Urine Glucose (UA) 1000 mg/dL Urine Ketones NEG mg/dL Urine Occult Blood NEG Urine Nitrite NEG Urine Bilirubin NEG Urine Urobilinogen LESS THAN 2.0 MG/DL Urine Leukocyte Esterase NEG Urine RBC 2 /hpf Urine WBC 2 /hpf Urine Squamous Epithelial 1 /hpf Cells Urine Renal Epithelial Cells <1 /hpf Microscopic Urinalysis Comment CATH-CULT NOT IND Urine Eosinophils NONE SEEN /HPF Urine Opiates Screen POS Urine Barbiturates Screen NEG Urine Amphetamines Screen NEG Urine Benzodiazepines Screen POS Urine Cocaine Screen NEG Urine Cannabinoids Screen NEG White Blood Count 8.7 TH/MM3 Red Blood Count 2.69 MIL/MM3 Hemoglobin 7.6 GM/DL Hematocrit 23.4 % Mean Corpuscular Volume 87.1 FL Mean Corpuscular Hemoglobin 28.3 PG Mean Corpuscular Hemoglobin 32.5 % Concent Red Cell Distribution Width 17.1 % Platelet Count 184 TH/MM3 Mean Platelet Volume 9.2 FL Neutrophils (%) (Auto) 67.9 % Lymphocytes (%) (Auto) 19.4 % Monocytes (%) (Auto) 7.6 % Eosinophils (%) (Auto) 4.0 % Basophils (%) (Auto) 1.1 % Neutrophils # (Auto) 5.9 TH/MM3 Lymphocytes # (Auto) 1.7 TH/MM3 Monocytes # (Auto) 0.7 TH/MM3 Eosinophils # (Auto) 0.3 TH/MM3 Basophils # (Auto) 0.1 TH/MM3 CBC Comment DIFF FINAL Differential Comment Sodium Level 142 MEQ/L Potassium Level 3.6 MEQ/L Chloride Level 107 MEQ/L Carbon Dioxide Level 26.6 MEQ/L Anion Gap 8 MEQ/L Blood Urea Nitrogen 8 MG/DL Creatinine 0.59 MG/DL Estimat Glomerular Filtration 110 ML/MIN Rate Random Glucose 88 MG/DL Calcium Level 8.9 MG/DL Physical Exam Details LLE Wound base at the ankle is 70% granular, + exposed tenon. No exposed ankle bone. Ankle ROM appropriate. LE is warm to warm and CFT < 3 secs. No erythema, mild edema, consistent with post-op. No malodor and no purulence. No calf pain and no streaking. Assessment & Plan Diagnosis: (1) Cellulitis of left foot Status: Acute (2) Diabetic foot infection Status: Acute A/P s/p I and D 09/08/[address] Medina s/p Left ankle wound debridement and wound VAC application with Dr Orozco DOS VAC taken down today. OP site with no acute soi. WBC is now wnl. OK to d/c per Podiatry. IV abx per ID Will need f/u with Dr Medina with in 1 week of d/c. HHC for wound VAC changes m/w/f at 125 mmhg. Leeanne Orozco DPM Sep 13, 2016 16:17
--- NOTE | 2016-09-13 16:56 | HHI.PR ---
Subjective Remarks Follow up on left lower extremity narcotic diabetic infection with recent persistent febrile illness Patient feeling slightly better, fever has been resolved, wound VAC removed by podiatry ID following, continue on cefepime and Diflucan Objective Vitals Vital Signs Date Time Temp Pulse Resp B/P Pulse Ox O2 Delivery O2 Flow Rate FiO2 09/13/16 16:00 98.1 86 20 128/84 100 09/13/16 13:00 18 09/13/16 12:00 97.9 86 18 121/86 100 09/13/16 11:50 18 09/13/16 08:51 18 09/13/16 08:00 98.1 86 20 148/68 99 09/13/16 04:00 98.3 82 20 172/88 93 09/13/16 00:00 98.9 85 22 124/68 94 09/12/16 20:15 98.9 95 20 103/62 94 09/12/16 19:15 98.7 96 18 98/62 92 09/12/16 17:01 18 I/O 09/12/16 09/12/16 09/12/16 09/13/16 09/13/16 09/13/16 07:00 15:00 23:00 07:00 15:00 23:00 Intake Total 1080 ml 3410 ml 480 ml 120 ml 480 ml Output Total 1200 ml 25 ml Balance -120 ml 3385 ml 480 ml 120 ml 480 ml Intake Oral 1080 ml 840 ml 480 ml 120 ml 480 ml IV Total 2570 ml Output Urine Total 1200 ml Drainage Total 25 ml # Voids 4 1 2 2 # Bowel Movements 0 1 0 0 1 Result Diagram: 09/13/16 0557 09/13/16 0557 Objective Remarks - GENERAL: This is a well-nourished, well-developed patient,- SKIN: Left foot in gauze and Tim bandage HEAD: Atraumatic. Normocephalic. EYES: Pupils equal round and reactive. Extraocular motions intact. No scleral icterus. ENT: Nose without bleeding, or drainage, Airway patent. NECK: Trachea midline. Supple CARDIOVASCULAR: Regular rate and rhythm without murmurs, gallops, or rubs. RESPIRATORY: Fair air entry bilaterally. No wheezes, rales, or rhonchi. GASTROINTESTINAL: Abdomen soft, non-tender, nondistended. Positive bowel sounds , left foot as above MUSCULOSKELETAL: Extremities without clubbing, cyanosis, or edema. Pedal pulses appreciated, wound VAC removed NEUROLOGICAL: Awake and alert. Moves all extremity. Normal speech.no focal neurological deficit A/P Assessment and Plan A/P: - Sepsis with Infected diabetic left foot gangrene/necrotizing fasciitis status post I&D - Acute increase in transaminitis>> questionable induced cefepime with Diflucan - Acute on chronic anemia hemoglobin 7.6 mostly postop component, consider transfusing if goes below 7 - Blood sugar is in better controlled today she was given 20 units of Levemir was morning since she was nothing by mouth for the procedure, will continue on her daily regimen and adjust - Uncontrolled diabetes mellitus with episodes of hypoglycemia. - Hypocalcemia - Gastroparesis History - History of PTSD, anxiety. - Chronic pain syndrome with neck surgery in the past. - History of IV drug abuse in the past and positive cocaine in the urine drug screen last year. PLAN: Status post D5 normal saline with every hour Accu-Cheks, hypoglycemia protocol Status post I&D and wound VAC by podiatry, recent spiking fever which has been resolved, ID change antibiotic to cefepime and Diflucan Status post removing central line, awaiting new blood culture(patient spiked fever last 2 days while on antibiotic) Monitor LFT Discussed with Calcium carbonate for hypocalcemia Change Dilaudid by mouth 2 every 4 hours 4 milligram versus 2 mg with pain scale - Gabapentin 600 mg on as needed basis. - Broad spectrum antibiotic. - Antibiotic management per ID as above - Continue home medications. - Antiemetics on a p.r.n. basis. Melissa Bella MD Sep 13, 2016 16:56
[2016-09-13] MEDS: PRAZOSIN HCL 2 MG CAP PO SCH (19:56)
[2016-09-13] MEDS: QUEtiapine FUMARATE 200 MG TAB PO SCH (19:57)
[2016-09-13 20:00] VITALS: BP 94/55; PULSE 107; PULSE 99; RESP 20; TEMP 98.9; O2SAT 92
[2016-09-14] VITALS (8 sets, daily range): BP systolic 87–111; BP diastolic 51–64; PULSE 89–130; RESP 18–20; TEMP 97.1–100.2; O2SAT 90–97
[2016-09-14] MEDS: HYDROmorphone HCL 2 MG TAB PO PRN ×3 (01:16→09:31)
[2016-09-14] MEDS: CARISOPRODOL 350 MG TAB PO PRN ×4 (01:16→23:54)
[2016-09-14] MEDS: VANCOMYCIN INJ 1,500 MG in SODIUM CHLORID 0.9% 500 ML INJ 500 ML IV SCH ×2 (01:17→12:00)
[2016-09-14] MEDS: CEFEPIME INJ 2,000 MG in SODIUM CHLORIDE 0.9% INJ 100 ML IV SCH ×3 (03:33→17:05)
[2016-09-14] MEDS: HEPARIN SODIUM - SQ 10,000 UNITS/ML VIAL SQ SCH ×2 (03:38→14:06)
[2016-09-14] MEDS: ACETAMINOPHEN 325 MG TAB PO PRN (05:45)
[2016-09-14] MEDS: INSULIN NovoLIN REGULAR SUPPLEMENTAL SCALE SQ SCH ×4 (06:48→21:00)
[2016-09-14] MEDS: ALPRAZolam 1 MG TAB PO PRN ×2 (06:48→14:05)
[2016-09-14 07:14] LABS: BICARBONATE 21.8 MEQ/L (21.0-32.0); POTASSIUM 4.3 MEQ/L (3.5-5.1)
[2016-09-14 07:17] LABS: INDIRECT BILIRUBIN 0.2 MG/DL (0.0-0.8); TOTAL BILIRUBIN ADULT 0.3 MG/DL (0.2-1.0)
[2016-09-14] MEDS: INSULIN ASPART 1,000 UNITS/10 ML VIAL SQ SCH (08:00)
[2016-09-14] MEDS: SODIUM CHLORIDE 0.9% FLUSH 5 ML FLUSH FLUSH SCH ×2 (09:00→22:04)
[2016-09-14] MEDS: carBAMazepine 200 MG TAB PO SCH ×2 (09:36→22:05)
[2016-09-14] MEDS: GABAPENTIN 400 MG CAP PO SCH ×3 (09:36→22:04)
[2016-09-14] MEDS: CALCIUM CARBONATE 1.25 GM (CA 500 MG) TAB PO SCH (09:36)
[2016-09-14] MEDS: INSULIN DETEMIR 100 UNITS/ML VIAL SQ SCH ×2 (09:37→21:00)
--- NOTE | 2016-09-14 10:11 | PD.POD ---
Subjective Podiatric Problems s/p Left ankle I and D with Dr Medina 09/08/16 s/p Left ankle wound debridement and wound VAC application with Dr Pam ALEXANDER Pain is better no calf pain today. Quite drowsy at bedside this am. Pain scale used: 0-10 numeric scale Pain score: 10 Past Med/Surg/Social History Social History Smoking Status: Never Smoker Objective Vital Signs Vital Signs Date Time Temp Pulse Resp B/P Pulse Ox O2 Delivery O2 Flow Rate FiO2 09/14/16 08:00 98.1 97 18 107/59 94 09/14/16 01:19 103 20 111/60 09/14/16 00:00 100.2 101 20 87/51 94 09/13/16 20:00 107 09/13/16 20:00 98.9 99 20 94/55 92 09/13/16 17:10 18 09/13/16 16:00 98.1 86 20 128/84 100 09/13/16 15:53 18 09/13/16 13:00 18 09/13/16 12:00 97.9 86 18 121/86 100 09/13/16 11:50 18 Coded Allergies: Toradol (Verified Allergy, Severe, Anaphylaxis, 09/05/16) Other Results Laboratory Tests Test 09/10/16 09/11/16 09/12/16 09/12/16 10:36 05:20 10:15 16:30 Basophils % 1 % Myelocytes 2 % Differential Total Cells 100 Counted Neutrophils % (Manual) 63 % Band Neutrophils % 1 % Lymphocytes % 23 % Monocytes % 5 % Eosinophils % 6 % Neutrophils # (Manual) 4.8 TH/MM3 Metamyelocytes 2 % Platelet Estimate NORMAL Platelet Morphology Comment CLUMPED Red Cell Morphology Comment NORMAL Urine Color YELLOW Urine Turbidity CLEAR Urine pH 6.5 Urine Specific [place] 1.013 Urine Protein TRACE mg/dL Urine Glucose (UA) 1000 mg/dL Urine Ketones NEG mg/dL Urine Occult Blood NEG Urine Nitrite NEG Urine Bilirubin NEG Urine Urobilinogen LESS THAN 2.0 MG/DL Urine Leukocyte Esterase NEG Urine RBC 2 /hpf Urine WBC 2 /hpf Urine Squamous Epithelial 1 /hpf Cells Urine Renal Epithelial Cells <1 /hpf Microscopic Urinalysis Comment CATH-CULT NOT IND Urine Eosinophils NONE SEEN /HPF Urine Opiates Screen POS Urine Barbiturates Screen NEG Urine Amphetamines Screen NEG Urine Benzodiazepines Screen POS Urine Cocaine Screen NEG Urine Cannabinoids Screen NEG Test 09/13/16 09/14/16 05:57 06:30 White Blood Count 8.7 TH/MM3 Red Blood Count 2.69 MIL/MM3 Hemoglobin 7.6 GM/DL Hematocrit 23.4 % Mean Corpuscular Volume 87.1 FL Mean Corpuscular Hemoglobin 28.3 PG Mean Corpuscular Hemoglobin 32.5 % Concent Red Cell Distribution Width 17.1 % Platelet Count 184 TH/MM3 Mean Platelet Volume 9.2 FL Neutrophils (%) (Auto) 67.9 % Lymphocytes (%) (Auto) 19.4 % Monocytes (%) (Auto) 7.6 % Eosinophils (%) (Auto) 4.0 % Basophils (%) (Auto) 1.1 % Neutrophils # (Auto) 5.9 TH/MM3 Lymphocytes # (Auto) 1.7 TH/MM3 Monocytes # (Auto) 0.7 TH/MM3 Eosinophils # (Auto) 0.3 TH/MM3 Basophils # (Auto) 0.1 TH/MM3 CBC Comment DIFF FINAL Differential Comment Sodium Level 136 MEQ/L Potassium Level 4.3 MEQ/L Chloride Level 101 MEQ/L Carbon Dioxide Level 21.8 MEQ/L Anion Gap 13 MEQ/L Blood Urea Nitrogen 8 MG/DL Creatinine 0.66 MG/DL Estimat Glomerular Filtration 96 ML/MIN Rate Random Glucose 143 MG/DL Calcium Level 8.5 MG/DL Total Bilirubin 0.3 MG/DL Direct Bilirubin 0.1 MG/DL Indirect Bilirubin 0.2 MG/DL Aspartate Amino Transf 40 U/L (AST/SGOT) Alanine Aminotransferase 35 U/L (ALT/SGPT) Alkaline Phosphatase 512 U/L Total Protein 6.2 GM/DL Albumin 2.2 GM/DL Vital Signs Date Time Temp Pulse Resp B/P Pulse Ox O2 Delivery O2 Flow Rate FiO2 09/14/16 08:00 98.1 97 18 107/59 94 09/14/16 01:19 103 20 111/60 09/14/16 00:00 100.2 101 20 87/51 94 09/13/16 20:00 107 09/13/16 20:00 98.9 99 20 94/55 92 09/13/16 17:10 18 09/13/16 16:00 98.1 86 20 128/84 100 09/13/16 15:53 18 2/24/17 13:00 18 09/13/16 12:00 97.9 86 18 121/86 100 09/13/16 11:50 18 Physical Exam Details LLE Intact VAC. CFT < 3 sec 1-5 ROM and no pain at the calf. Dorsal foot with edema appropriate for post op time frame. Assessment & Plan Diagnosis: (1) Cellulitis of left foot Status: Acute (2) Diabetic foot infection Status: Acute A/P s/p I and D 09/08/[address] Medina s/p Left ankle wound debridement and wound VAC application with Dr Orozco DOS WBC is now wnl. OK to d/c per Podiatry. IV abx per ID Will need f/u with Dr Medina with in 1 week of d/c. HHC for wound VAC changes m/w/f at 125 mmhg. Leeanne Orozco DPM Sep 14, 2016 10:11
--- NOTE | 2016-09-14 11:35 | HHI.PR ---
Subjective Remarks in no acute distress. pain is fairly controlled. low grade fever earlier today. the at the bedside. d/w the RN. Objective Vitals Vital Signs Date Time Temp Pulse Resp B/P Pulse Ox O2 Delivery O2 Flow Rate FiO2 09/14/16 08:00 98.1 97 18 107/59 94 09/14/16 01:19 103 20 111/60 09/14/16 00:00 100.2 101 20 87/51 94 09/13/16 20:00 107 09/13/16 20:00 98.9 99 20 94/55 92 09/13/16 17:10 18 09/13/16 16:00 98.1 86 20 128/84 100 09/13/16 15:53 18 09/13/16 13:00 18 09/13/16 12:00 97.9 86 18 121/86 100 09/13/16 11:50 18 I/O 09/13/16 09/13/16 09/13/16 09/14/16 09/14/16 09/14/16 07:00 15:00 23:00 07:00 15:00 23:00 Intake Total 120 ml 480 ml 360 ml 120 ml Balance 120 ml 480 ml 360 ml 120 ml Intake Oral 120 ml 480 ml 360 ml 120 ml # Voids 2 2 1 0 # Bowel Movements 0 1 0 0 Result Diagram: 09/13/16 0557 09/14/16 0630 Imaging Last Impressions Lower Extremity Ultrasound 09/12/16 0000 Signed Impressions: Service Date/Time: August 17:55 - CONCLUSION: Negative for DVT. Nonspecific left groin lymph nodes Francois Boothe MD Chest X-Ray 09/12/16 0000 Signed Impressions: Service Date/Time: August 08:32 - CONCLUSION: Stable chest x-ray. No acute cardiopulmonary abnormality is identified. Bill Gaxiola MD Foot MRI 09/06/16 0000 Signed Impressions: Service Date/Time: Tuesday, September 06, 2016 11:35 - CONCLUSION: Significant abnormality on the medial side of the foot with abnormal signal in the tarsal navicular and first cuneiform. Gonzalo Sears MD FACR Foot X-Ray 09/05/16 0000 Signed Impressions: Service Date/Time: August 23:39 - CONCLUSION: 1. There is no evidence of acute fracture. 2. Soft tissue swelling is present with gas in the soft tissues. No plain film findings of osteomyelitis. If there is necessity for further evaluation contrast-enhanced MRI is recommended. Gaurav Parks MD Ankle X-Ray 09/05/16 0000 Signed Impressions: Service Date/Time: August 23:36 - CONCLUSION: 1. There is no evidence of acute fracture. Gaurav Parks MD Objective Remarks GENERAL: This is a well-nourished, well-developed patient, in no apparent distress. CARDIOVASCULAR: Regular rate and regular rhythm without murmurs, gallops, or rubs. RESPIRATORY: Clear to auscultation. Breath sounds equal bilaterally. No wheezes , rales, or rhonchi. GASTROINTESTINAL: Abdomen soft, non-tender, nondistended. Normal, active bowel sounds MUSCULOSKELETAL: left foot covered with clean dressing. NEURO: Alert & Oriented x4 to person, place, time, situation. Moves all ext x4 Procedures central line placement I/D left foot/ ankle with wound vac placement Medications and IVs Current Medications Sodium Chloride 1,000 ml @ 2,000 mls/hr Q30M ONCE IV Last administered on 09/05 23:55; Start 09/05/16 at 23:22; Stop 09/05/16 at 23:51; Status DC Sodium Chloride (NS 1000 ml Inj) 1,000 ml @ 2,000 mls/hr Q30M ONCE IV Last administered on 09/06/16 00:40; Start 09/05/16 at 23:52; Stop 09/06/16 at 00:21 ; Status DC IV Flush 2 ml 2 ml UNSCH PRN IVF FLUSH AFTER USING IV ACCESS; Start 09/05/16 at 23:30; Stop 09/06/16 at 02:17; Status DC Vancomycin HCl 1000 mg/Sodium Chloride 250 ml @ 250 mls/hr ONCE ONCE IV Last administered on 09/06/16 05:02; Start 09/05/16 at 23:30; Stop 09/06/16 at 00:29 ; Status DC Clindamycin Phosphate/Sodium Chloride (Cleocin Inj/NS Inj) 106 ml @ 212 mls/hr ONCE ONCE IV Last administered on 09/06/16 01:46; Start 09/06/16 at 00:45; Stop 09/06/16 at 01:14; Status DC Insulin Human Regular (NovoLIN R INJ) 7 units ONCE ONCE IV PUSH Last administered on 09/06/16 01:09; Start 09/06/16 at 00:45; Stop 09/06/16 at 00:46 ; Status DC Ondansetron HCl (Zofran Inj) 4 mg ONCE ONCE IV PUSH Last administered on 01:46; Start 09/06/16 at 01:45; Stop 09/06/16 at 01:46; Status DC Hydromorphone HCl 0.5 mg 0.5 mg ONCE ONCE IV PUSH Last administered on 01:46; Start 09/06/16 at 01:45; Stop 09/06/16 at 01:46; Status DC Piperacillin Sod/ Tazobactam Sod 50 ml @ 100 mls/hr ONCE ONCE IV Last administered on 09/06/16 02:27; Start 09/06/16 at 02:00; Stop 09/06/16 at 02:29 ; Status DC Sodium Chloride (NS 1000 ml Inj) 1,000 ml @ 999 mls/hr BOLUS ONCE IV Last administered on 09/06/16 02:17; Start 09/06/16 at 02:00; Stop 09/06/16 at 03:00 ; Status DC IV Flush (NS Flush) 2 ml BID IVF ; Start 09/06/16 at 09:00; Stop 09/06/16 at 09: 00; Status DC IV Flush (NS Flush) 2 ml UNSCH PRN IVF FLUSH AFTER USING IV ACCESS; Start 09/06 at 02:15; Stop 09/06/16 at 02:54; Status DC Hydromorphone HCl 0.5 mg 0.5 mg ONCE ONCE IV PUSH Last administered on 02:33; Start 09/06/16 at 02:30; Stop 09/06/16 at 02:31; Status DC Potassium Chloride/Dextrose/ Sod Cl 1,000 ml @ 125 mls/hr Q8H IV ; Start at 02:30; Stop 09/06/16 at 03:17; Status DC Sodium Chloride (NS 1000 ml Inj) 1,000 ml @ 100 mls/hr Q10H IV Last administered on 09/06/16 05:53; Start 09/06/16 at 02:45; Stop 09/06/16 at 10:19 ; Status DC IV Flush (NS Flush) 2 ml UNSCH PRN FLUSH FLUSH AFTER USING IV ACCESS Last administered on 09/06/16 10:05; Start 09/06/16 at 02:45 IV Flush (NS Flush) 2 ml BID FLUSH Last administered on 09/11/16 21:11; Start 09/06/16 at 09:00 Acetaminophen (Tylenol) 650 mg Q4H PRN PO TEMP > 100.4 Last administered on 05:45; Start 09/06/16 at 02:45 Ondansetron HCl (Zofran Inj) 4 mg Q6H PRN IVP NAUSEA OR VOMITING; Start at 02:45 Sennosides (Senokot) 17.2 mg Q12H PRN PO CONSTIPATION; Start 09/06/16 at 02:45 Heparin Sodium (Porcine) (Heparin Inj) 5,000 units Q12H SQ Last administered on 09/14/16 03:38; Start 09/06/16 at 02:45 Naloxone HCl 0.4 mg 0.4 mg UNSCH PRN IV SEE LABEL COMMENTS; Start 09/06/16 at 02:45 Pharmacy Profile Note 0 ml @ 0 mls/hr UNSCH OTHER ; Start 09/06/16 at 02:45; Stop 09/06/16 at 09:07; Status DC Piperacillin Sod/ Tazobactam Sod (Zosyn 3.375 Gm Premix) 50 ml @ 100 mls/hr Q6H IV Last administered on 09/10/16 09:54; Start 09/06/16 at 09:00; Stop at 13:07; Status DC Dextrose (D50w (Vial) Inj) 25 ml UNSCH PRN IV PUSH HYPOGLYCEMIA-SEE COMMENTS Last administered on 09/10/16 13:52; Start 09/06/16 at 02:45 Glucagon (Glucagon Inj) 1 mg UNSCH PRN OTHER HYPOGLYCEMIA-SEE COMMENTS Last administered on 09/06/16 10:42; Start 09/06/16 at 02:45 Insulin Aspart (NovoLOG SUPPLEMENTAL SCALE) 1 ACHS SLIDING SCALE SQ Last administered on 09/07/16 05:28; Start 09/06/16 at 07:00; Stop 09/07/16 at 13:17 ; Status DC Dextrose (D50w (Syr) Inj) 25 ml ONCE ONCE IV ; Start 09/06/16 at 03:45; Stop at 03:46; Status Cancel Dextrose 25 ml 25 ml ONCE ONCE IV Last administered on 09/06/16 03:54; Start 09/06/16 at 04:00; Stop 09/06/16 at 04:01; Status DC Vancomycin HCl/ Sodium Chloride (Vancomycin Inj/ NS 500 ml Inj) 515 ml @ 257.5 mls/ hr Q24H IV ; Start 09/06/16 at 22:00; Stop 09/07/16 at 11:00; Status DC Miscellaneous Information SPECIFIC LAB TO BE LEANDRO... ONCE ONCE XX ; Start at 21:45; Stop 09/08/16 at 21:46; Status Cancel Hydromorphone HCl 1 mg 1 mg ONCE ONCE IV PUSH Last administered on 09/06/16 05:07; Start 09/06/16 at 05:00; Stop 09/06/16 at 05:01; Status DC Pharmacy Profile Note (Vancomycin Consult Pharmacy) 0 ml @ 0 mls/hr UNSCH OTHER ; Start 09/06/16 at 09:15; Stop 09/09/16 at 17:49; Status DC Dextrose (D25w Inj) 10 ml ONCE ONCE IV PUSH ; Start 09/06/16 at 10:00; Stop at 10:03; Status DC Hydromorphone HCl 0.5 mg 0.5 mg Q4H PRN IV PUSH BREAKTHROUGH PAIN Last administered on 09/13/16 11:20; Start 09/06/16 at 10:00 Levofloxacin/ Dextrose (Levaquin 500 Mg Premix Inj) 100 ml @ 100 mls/hr Q24H IV Last administered on 09/07/16 10:00; Start 09/06/16 at 10:00; Stop at 23:49; Status DC Alprazolam (Xanax) 2 mg Q6H PRN PO ANXIETY Last administered on 09/14/16 06:48 ; Start 09/06/16 at 10:00 Carbamazepine (TEGretol) 200 mg BID PO Last administered on 09/14/16 09:36; Start 09/06/16 at 21:00 Carisoprodol (Soma) 350 mg QID PRN PO MUSCLE SPASM Last administered on 06:48; Start 09/06/16 at 10:00 Gabapentin (Neurontin) 600 mg Q12HR PO Last administered on 09/07/16 09:07; Start 09/06/16 at 21:00; Stop 09/07/16 at 14:06; Status DC Hydromorphone HCl (Dilaudid) 4 mg Q6H PRN PO PAIN SCALE 1 TO 10 Last administered on 09/08/16 10:12; Start 09/06/16 at 10:00; Stop 09/08/16 at 12:55 ; Status DC Prazosin HCl (Minipress) 1 mg DAILY PO ; Start 09/07/16 at 09:00; Stop 09/07/16 at 14:03; Status DC Promethazine HCl (Phenergan) 25 mg Q6H PRN PO Nausea/Vomiting Last administered on 09/10/16 12:53; Start 09/06/16 at 10:00 Quetiapine Fumarate (SEROquel) 200 mg DAILY PO ; Start 09/07/16 at 09:00; Stop 09/07/16 at 14:05; Status DC Ropinirole HCl 2 mg 2 mg HS PO Last administered on 09/13/16 19:57; Start at 21:00 Dextrose/Sodium Chloride 1,000 ml @ 100 mls/hr Q10H IV Last administered on 01:28; Start 09/06/16 at 10:19; Stop 09/07/16 at 14:22; Status DC Lactated Ringer's 1,000 ml @ 30 mls/hr Q24H IV ; Start 09/06/16 at 13:15; Stop 09/06/16 at 16:55; Status DC Sodium Chloride (NS 500 ml Inj) 500 ml @ 30 mls/hr [id number] IV ; Start 09/06/16 at 13:15; Stop 09/07/16 at 13:14; Status DC Insulin Human Regular (NovoLIN R INJ) See Protocol Table ... UNSCH X1 PRN SQ SEE PROTOCOL; Start 09/06/16 at 13:15; Stop 09/06/16 at 16:55; Status DC Metoprolol Tartrate (Lopressor) 25 mg UNSCH X1 PRN PO SEE LABEL COMMENTS; Start 09/06/16 at 13:15; Stop 09/06/16 at 16:55; Status DC Bupivacaine HCl (Marcaine Pf 0.25% Inj) 30 ml STK-MED ONCE .ROUTE ; Start at 13:12; Stop 09/06/16 at 13:13; Status DC Lidocaine HCl (Xylocaine 1% Inj (50 ml)) 50 ml STK-MED ONCE .ROUTE Last administered on 09/06/16 15:49; Start 09/06/16 at 13:12; Stop 09/06/16 at 13:13 ; Status DC Bupivacaine HCl (Marcaine Pf 0.5% Inj) 30 ml STK-MED ONCE .ROUTE Last administered on 09/06/16 15:49; Start 09/06/16 at 14:54; Stop 09/06/16 at 14:55 ; Status DC Midazolam HCl (Versed Inj) 4 mg STK-MED ONCE .ROUTE ; Start 09/06/16 at 15:48; Stop 09/06/16 at 15:49; Status DC Fentanyl Citrate (fentaNYL INJ) 250 mcg STK-MED ONCE .ROUTE ; Start 09/06/16 at 15:48; Stop 09/06/16 at 15:49; Status DC IV Flush (NS Flush) 2 ml UNSCH PRN IVF FLUSH AFTER USING IV ACCESS; Start 09/06 at 16:45; Stop 09/06/16 at 16:56; Status DC IV Flush (NS Flush) 2 ml BID IVF ; Start 09/06/16 at 21:00; Stop 09/06/16 at 21: 00; Status DC Miscellaneous Information (Post-op Orders (for Pharmacy)) STAT ONCE XX ; Start 09/06/16 at 16:45; Stop 09/06/16 at 16:54; Status DC Hydromorphone HCl (*DILAUDID PF INJ PERIprocedural ONLY) 1 mg STK-MED ONCE .ROUTE Last administered on 09/06/16 16:41; Start 09/06/16 at 16:41; Stop at 16:42; Status DC Hydromorphone HCl (*DILAUDID PF INJ PERIprocedural ONLY) 1 mg STK-MED ONCE .ROUTE Last administered on 09/06/16 16:48; Start 09/06/16 at 16:48; Stop at 16:49; Status DC Midazolam HCl (Versed Inj) 4 mg STK-MED ONCE .ROUTE ; Start 09/06/16 at 16:51; Stop 09/06/16 at 16:52; Status DC Fentanyl Citrate (fentaNYL INJ) 500 mcg STK-MED ONCE .ROUTE ; Start 09/06/16 at 16:51; Stop 09/06/16 at 16:52; Status DC Fentanyl Citrate (fentaNYL INJ) 200 mcg STK-MED ONCE .ROUTE ; Start 09/06/16 at 16:51; Stop 09/06/16 at 16:52; Status DC Morphine Sulfate (Morphine Inj) 8 mg STK-MED ONCE .ROUTE ; Start 09/06/16 at 16: 51; Stop 09/06/16 at 16:52; Status DC Hydroxyzine HCl (*VISTARIL INJ PERIprocedural ONLY) 25 mg STK-MED ONCE IM Last administered on 09/06/16 16:56; Start 09/06/16 at 16:56; Stop 09/06/16 at 16:57 ; Status DC Hydromorphone HCl (*DILAUDID PF INJ PERIprocedural ONLY) 1 mg STK-MED ONCE .ROUTE Last administered on 09/06/16 16:57; Start 09/06/16 at 16:57; Stop at 16:58; Status DC Neomycin/ Polymyxin 2 ml 2 ml STK-MED ONCE IR Last administered on 09/06/16 16 :00; Start 09/06/16 at 16:00; Stop 09/06/16 at 17:48; Status DC Vancomycin HCl/ Sodium Chloride (Vancomycin Inj/ NS 250 ml Inj) 250 ml @ 250 mls/hr Q12H IV Last administered on 09/09/16 01:32; Start 09/07/16 at 12:00; Stop 09/09/16 at 15:15; Status DC Miscellaneous Information SPECIFIC LAB TO BE LEANDRO... ONCE ONCE XX Last administered on 09/09/16 11:45; Start 09/09/16 at 11:45; Stop 09/09/16 at 11:46 ; Status DC Insulin Human Regular (NovoLIN R SUPPLEMENTAL SCALE) 1 ACHS SLIDING SCALE SQ Last administered on 09/14/16 06:48; Start 09/07/16 at 16:00 Prazosin HCl (Minipress) 2 mg HS PO Last administered on 09/13/16 19:56; Start 09/07/16 at 21:00 Quetiapine Fumarate (SEROquel) 200 mg HS PO Last administered on 09/13/16 19: 57; Start 09/07/16 at 21:00 Gabapentin (Neurontin) 400 mg BID@09,12 PO Last administered on 09/14/16 09:36 ; Start 09/08/16 at 09:00 Gabapentin (Neurontin) 800 mg HS PO Last administered on 09/13/16 19:56; Start 09/07/16 at 21:00 Insulin Detemir (Levemir Inj) 40 units DAILY SQ ; Start 09/08/16 at 09:00; Stop 09/08/16 at 10:45; Status DC Insulin Detemir 20 units 20 units HS SQ Last administered on 09/07/16 21:49; Start 09/07/16 at 21:00; Stop 09/08/16 at 10:49; Status DC Sodium Chloride (NS 1000 ml Inj) 1,000 ml @ 100 mls/hr Q10H IV Last administered on 09/13/16 19:58; Start 09/07/16 at 15:00 Insulin Detemir (Levemir Inj) 10 units Q12HR SQ Last administered on 09/07/16 21:49; Start 09/07/16 at 21:00; Stop 09/08/16 at 10:49; Status DC Calcium Carbonate (Oscal) 500 mg Q12HR PO Last administered on 09/14/16 09:36 ; Start 09/07/16 at 21:00; Stop 09/14/16 at 20:59 Clindamycin HCl (Cleocin) 450 mg Q6HR PO Last administered on 09/10/16 11:29; Start 09/08/16 at 00:00; Stop 09/10/16 at 13:08; Status DC Bupivacaine HCl (Marcaine Pf 0.5% Inj) 30 ml STK-MED ONCE .ROUTE Last administered on 09/08/16 08:24; Start 09/08/16 at 07:12; Stop 09/08/16 at 07:13 ; Status DC Lidocaine HCl (Xylocaine 1% Inj (50 ml)) 50 ml STK-MED ONCE .ROUTE Last administered on 09/08/16 08:24; Start 09/08/16 at 07:13; Stop 09/08/16 at 07:14 ; Status DC Neomycin/Polymyxin (Neosporin G.u. Irr) 2 ml STK-MED ONCE IR Last administered on 09/08/16 07:18; Start 09/08/16 at 07:18; Stop 09/08/16 at 07:19; Status DC Midazolam HCl (Versed Inj) 2 mg STK-MED ONCE .ROUTE ; Start 09/08/16 at 07:56; Stop 09/08/16 at 07:57; Status DC Fentanyl Citrate (fentaNYL INJ) 250 mcg STK-MED ONCE .ROUTE ; Start 09/08/16 at 07:56; Stop 09/08/16 at 07:57; Status DC Acetaminophen (Ofirmev Inj) 1,000 mg STK-MED ONCE IV ; Start 09/08/16 at 07:56; Stop 09/08/16 at 07:57; Status DC Sugammadex Sodium (Bridion Inj) 200 mg STK-MED ONCE IV PUSH ; Start 09/08/16 at 07:57; Stop 09/08/16 at 07:58; Status DC IV Flush (NS Flush) 2 ml UNSCH PRN IVF FLUSH AFTER USING IV ACCESS; Start 09/08 at 09:00; Stop 09/08/16 at 09:06; Status DC IV Flush (NS Flush) 2 ml BID IVF ; Start 09/08/16 at 09:00; Stop 09/08/16 at 09: 06; Status DC Miscellaneous Information (Post-op Orders (for Pharmacy)) STAT ONCE XX ; Start 09/08/16 at 09:00; Stop 09/08/16 at 09:19; Status DC Hydromorphone HCl (*DILAUDID PF INJ PERIprocedural ONLY) 1 mg STK-MED ONCE .ROUTE Last administered on 09/08/16 09:00; Start 09/08/16 at 09:00; Stop at 09:01; Status DC Morphine Sulfate (Morphine Inj) 4 mg STK-MED ONCE .ROUTE ; Start 09/08/16 at 09: 01; Stop 09/08/16 at 09:02; Status DC Miscellaneous Information ALL NURSING DEPARTME... UNSCH PRN XX SEE LABEL COMMENTS; Start 09/08/16 at 08:55; Stop 09/09/16 at 08:54; Status DC Insulin Detemir (Levemir Inj) 20 units DAILYAC SQ ; Start 09/09/16 at 08:00; Stop 09/09/16 at 11:17; Status DC Insulin Detemir (Levemir Inj) 10 units HS SQ Last administered on 09/13/16 19: 57; Start 09/08/16 at 21:00 Hydromorphone HCl (Dilaudid) 4 mg Q4H PRN PO PAIN SCALE 6 TO 10 Last administered on 09/13/16 19:56; Start 09/08/16 at 14:00 Hydromorphone HCl (Dilaudid) 2 mg Q4H PRN PO pain3-5 Last administered on 09:31; Start 09/08/16 at 13:00 Insulin Detemir (Levemir Inj) 30 units DAILYAC SQ Last administered on 09:37; Start 09/10/16 at 08:00 Insulin Aspart 3 units 3 units TIDAC SQ Last administered on 09/13/16 17:54; Start 09/09/16 at 12:00 Vancomycin HCl/ Sodium Chloride (Vancomycin Inj/ NS 500 ml Inj) 515 ml @ 257.5 mls/ hr Q12H IV ; Start 09/09/16 at 20:00; Stop 09/09/16 at 20:00; Status DC Miscellaneous Information SPECIFIC LAB TO BE DRAWN:VANCOMYCIN TROUGH DATE TO... ONCE ONCE XX ; Start 09/11/16 at 07:45; Stop 09/11/16 at 07:45; Status DC Fluconazole 200 mg 200 mg DAILY PO Last administered on 09/10/16 09:54; Start 09/09/16 at 18:00; Stop 09/10/16 at 13:07; Status DC Lactated Ringer's 1,000 ml @ 30 mls/hr Q24H IV Last administered on 09/11/16 07:30; Start 09/10/16 at 08:30 Sodium Chloride 500 ml @ 30 mls/hr [id number] IV ; Start 09/10/16 at 08:30; Stop 09/11/16 at 08:29; Status DC Dextrose/Sodium Chloride (D5W-NS 1000 ml Inj) 1,000 ml @ 60 mls/hr [id number] IV Last administered on 09/10/16 11:25; Start 09/10/16 at 11:15; Stop 09/11/16 at 03:54; Status DC Acetaminophen (Tylenol Supp) 325 mg Q4H PRN RECTAL fever >100.4 Last administered on 09/10/16 12:21; Start 09/10/16 at 12:00 Propofol (Diprivan 200 Mg/20 ml Inj) 200 mg STK-MED ONCE IV ; Start 09/06/16 at 12:00; Stop 09/10/16 at 12:53; Status DC Ondansetron HCl 4 mg 4 mg STK-MED ONCE IV PUSH ; Start 09/06/16 at 12:00; Stop 09/10/16 at 12:53; Status DC Lactated Ringer's 1,000 ml @ As Directed STK-MED ONCE IV ; Start 09/06/16 at 12 :00; Stop 09/10/16 at 12:53; Status DC Ceftriaxone Sodium 2000 mg/ Sodium Chloride 100 ml @ 200 mls/hr Q24H IV Last administered on 09/11/16 13:42; Start 09/10/16 at 14:00; Stop 09/12/16 at 08:20 ; Status DC Fluconazole/ Sodium Chloride (Diflucan 400 Mg Premix Bag) 200 ml @ 100 mls/hr Q24H IV Last administered on 09/13/16 15:24; Start 09/10/16 at 15:00 Propofol (Diprivan 200 Mg/20 ml Inj) 200 mg STK-MED ONCE IV ; Start 09/08/16 at 12:00; Stop 09/10/16 at 13:13; Status DC Ondansetron HCl 4 mg 4 mg STK-MED ONCE IV PUSH ; Start 09/08/16 at 12:00; Stop 09/10/16 at 13:13; Status DC Lactated Ringer's (Lr 1000 ml Inj) 1,000 ml @ As Directed STK-MED ONCE IV ; Start 09/08/16 at 12:00; Stop 09/10/16 at 13:13; Status DC Fentanyl Citrate (fentaNYL INJ) 250 mcg STK-MED ONCE .ROUTE ; Start 09/11/16 at 07:05; Stop 09/11/16 at 07:06; Status DC Midazolam HCl (Versed Inj) 2 mg STK-MED ONCE .ROUTE ; Start 09/11/16 at 07:16; Stop 09/11/16 at 07:17; Status DC Midazolam HCl (Versed Inj) 2 mg STK-MED ONCE .ROUTE ; Start 09/11/16 at 07:16; Stop 09/11/16 at 07:17; Status DC Bupivacaine HCl (Marcaine Pf 0.5% Inj) 30 ml STK-MED ONCE .ROUTE Last administered on 09/11/16 08:00; Start 09/11/16 at 07:33; Stop 09/11/16 at 07:34 ; Status DC Lidocaine HCl (Xylocaine-Mpf 2% Inj) 30 ml STK-MED ONCE .ROUTE Last administered on 09/11/16 08:00; Start 09/11/16 at 07:33; Stop 09/11/16 at 07:34 ; Status DC Hydromorphone HCl (*DILAUDID PF INJ PERIprocedural ONLY) 1 mg STK-MED ONCE .ROUTE Last administered on 09/11/16 08:58; Start 09/11/16 at 08:58; Stop at 08:59; Status DC Meperidine HCl (*DEMEROL INJ PERIprocedural ONLY) 25 mg STK-MED ONCE .ROUTE Last administered on 09/11/16 09:05; Start 09/11/16 at 09:05; Stop 09/11/16 at 09:06; Status DC Hydromorphone HCl (*DILAUDID PF INJ PERIprocedural ONLY) 1 mg STK-MED ONCE .ROUTE Last administered on 09/11/16 09:12; Start 09/11/16 at 09:12; Stop at 09:13; Status DC Miscellaneous Information ALL NURSING DEPARTME... UNSCH PRN XX SEE LABEL COMMENTS; Start 09/11/16 at 08:49; Stop 09/12/16 at 08:48; Status DC Hydroxyzine HCl (*VISTARIL INJ PERIprocedural ONLY) 25 mg STK-MED ONCE IM Last administered on 09/11/16 09:12; Start 09/11/16 at 09:12; Stop 09/11/16 at 09:13 ; Status DC Insulin Detemir (Levemir Inj) 20 units NOW ONCE SQ Last administered on 12:34; Start 09/11/16 at 11:15; Stop 09/11/16 at 11:16; Status DC Neomycin/Polymyxin (Neosporin G.u. Irr) 1 ml STK-MED ONCE IR Last administered on 09/11/16 08:00; Start 09/11/16 at 08:00; Stop 09/11/16 at 12:34; Status DC Hydromorphone HCl 1 mg 1 mg ONCE ONCE IV PUSH Last administered on 09/12/16 00:35; Start 09/12/16 at 00:00; Stop 09/12/16 at 00:03; Status DC Cefepime HCl 2000 mg/Sodium Chloride 100 ml @ 200 mls/hr Q8H IV Last administered on 09/14/16 09:35; Start 09/12/16 at 10:00 Pharmacy Profile Note 0 ml @ 0 mls/hr UNSCH OTHER ; Start 09/12/16 at 08:30 Vancomycin HCl/ Sodium Chloride (Vancomycin Inj/ NS 500 ml Inj) 515 ml @ 250 mls/hr Q12H IV Last administered on 09/14/16 01:17; Start 09/12/16 at 12:00 Miscellaneous Information SPECIFIC LAB TO BE DRAWN:VANCOMYCIN TROUGH DATE TO... ONCE ONCE XX ; Start 09/14/16 at 11:45; Stop 09/14/16 at 11:46 Propofol (Diprivan 200 Mg/20 ml Inj) 200 mg STK-MED ONCE IV ; Start 09/11/16 at 10:45; Stop 09/12/16 at 10:45; Status DC Neostigmine Methylsulfate (Prostigmin Inj) 3 mg STK-MED ONCE IV ; Start at 10:45; Stop 09/12/16 at 10:45; Status DC Ondansetron HCl (Zofran Inj) 4 mg STK-MED ONCE IV PUSH ; Start 09/11/16 at 10:45 ; Stop 09/12/16 at 10:45; Status DC A/P Assessment and Plan - Sepsis with Infected diabetic left foot gangrene/necrotizing fasciitis status post I&D continue with Iv antibiotics- podiatry and ID following. - Acute increase in transaminitis>> questionable induced cefepime with Diflucan will monitor LFT's- - Acute on chronic anemia hemoglobin 7.6 mostly postop component, consider transfusing if goes below 7 -diabetes mellitus; continue long-acting insulin and accu-check with SSI- hold AC novolog. - Chronic pain syndrome with neck surgery in the past; continue with pain control. - History of IV drug abuse in the past . Uzair Rodriguez MD Sep 14, 2016 11:35
[2016-09-14] MEDS ORDERED: PHARMACY ORDERED LAB XX ONE ×2 (11:45→23:45)
[2016-09-14] MEDS: HYDROmorphone HCL 4 MG TAB PO PRN ×2 (14:09→19:20)
[2016-09-14] MEDS: FLUCONAZOLE 400 MG PREMIX BAG 200 ML IV SCH (15:00)
[2016-09-14] MEDS: HYDROmorphone HCL PF 1 MG/ML VIAL IV PUSH PRN ×2 (17:07→23:54)
[2016-09-14] MEDS: DEXTROSE 50% IN WATER 50 ML VIAL(D50) IV PUSH PRN (18:39)
[2016-09-14] MEDS: PRAZOSIN HCL 2 MG CAP PO SCH (21:00)
[2016-09-14] MEDS: QUEtiapine FUMARATE 200 MG TAB PO SCH (22:05)
[2016-09-15] VITALS (7 sets, daily range): BP systolic 108–140; BP diastolic 58–95; PULSE 11–90; RESP 17–20; TEMP 96.4–98.1; O2SAT 91–98
[2016-09-15] MEDS: VANCOMYCIN INJ 1,500 MG in SODIUM CHLORID 0.9% 500 ML INJ 500 ML IV SCH ×3 (01:01→23:10)
[2016-09-15] MEDS: HEPARIN SODIUM - SQ 10,000 UNITS/ML VIAL SQ SCH ×2 (02:28→15:28)
[2016-09-15] MEDS: CEFEPIME INJ 2,000 MG in SODIUM CHLORIDE 0.9% INJ 100 ML IV SCH ×3 (02:28→17:47)
[2016-09-15] MEDS: ALPRAZolam 1 MG TAB PO PRN ×3 (02:29→19:03)
[2016-09-15] MEDS: HYDROmorphone HCL PF 1 MG/ML VIAL IV PUSH PRN ×3 (02:29→23:14)
[2016-09-15] MEDS: SODIUM CHLOR 0.9% 1000 ML INJ 1,000 ML IV SCH (03:00)
[2016-09-15] MEDS: HYDROmorphone HCL 4 MG TAB PO PRN ×5 (06:11→20:10)
[2016-09-15] MEDS: INSULIN NovoLIN REGULAR SUPPLEMENTAL SCALE SQ SCH ×4 (07:00→23:12)
--- NOTE | 2016-09-15 09:27 | HHI.FF ---
Face to Face Verification Diagnosis: (1) Diabetic foot infection Physical Therapy Order: Evaluate and Treat Home Health Nursing Order: Medical education Signs/symptoms of disease process Wound care and dressing changes I have seen patient Keisha Schmid on 09/15/16. My clinical findings support the need for the requested home health care services because: Ltd mobility - disease progression I certify that my clinical findings support that this patient is homebound because: Unsteady gait/balance Uzair Rodriguez MD Sep 15, 2016 09:27
--- NOTE | 2016-09-15 09:27 | HHI.PR ---
Subjective Remarks resting comfortably with no distress. pain is fairly controlled. no fever. Objective Vitals Vital Signs Date Time Temp Pulse Resp B/P Pulse Ox O2 Delivery O2 Flow Rate FiO2 09/15/16 08:00 97.1 84 20 112/66 96 09/15/16 07:30 81 09/15/16 04:00 96.4 86 18 121/71 94 09/15/16 00:00 97.6 11 18 128/58 91 09/14/16 22:00 130 09/14/16 20:00 98.3 89 18 99/58 90 09/14/16 16:00 97.1 92 20 104/58 96 09/14/16 12:00 98.4 94 20 111/64 97 I/O 09/14/16 09/14/16 09/14/16 09/15/16 09/15/16 09/15/16 07:00 15:00 23:00 07:00 15:00 23:00 Intake Total 120 ml 600 ml 600 ml Balance 120 ml 600 ml 600 ml Intake Oral 120 ml 600 ml 600 ml # Voids 0 3 5 # Bowel Movements 0 2 1 Result Diagram: 09/13/16 0557 09/15/16 0727 Imaging Last Impressions Lower Extremity Ultrasound 09/12/16 0000 Signed Impressions: Service Date/Time: August 17:55 - CONCLUSION: Negative for DVT. Nonspecific left groin lymph nodes Francois Boothe MD Chest X-Ray 09/12/16 0000 Signed Impressions: Service Date/Time: August 08:32 - CONCLUSION: Stable chest x-ray. No acute cardiopulmonary abnormality is identified. Bill Gaxiola MD Foot MRI 09/06/16 0000 Signed Impressions: Service Date/Time: Tuesday, September 06, 2016 11:35 - CONCLUSION: Significant abnormality on the medial side of the foot with abnormal signal in the tarsal navicular and first cuneiform. Gonzalo Sears MD FACR Foot X-Ray 09/05/16 0000 Signed Impressions: Service Date/Time: August 23:39 - CONCLUSION: 1. There is no evidence of acute fracture. 2. Soft tissue swelling is present with gas in the soft tissues. No plain film findings of osteomyelitis. If there is necessity for further evaluation contrast-enhanced MRI is recommended. Gaurav Parks MD Ankle X-Ray 09/05/16 0000 Signed Impressions: Service Date/Time: August 23:36 - CONCLUSION: 1. There is no evidence of acute fracture. Gaurav Parks MD Objective Remarks GENERAL: This is a well-nourished, well-developed patient, in no apparent distress. CARDIOVASCULAR: Regular rate and regular rhythm without murmurs, gallops, or rubs. RESPIRATORY: Clear to auscultation. Breath sounds equal bilaterally. No wheezes , rales, or rhonchi. GASTROINTESTINAL: Abdomen soft, non-tender, nondistended. Normal, active bowel sounds MUSCULOSKELETAL: left foot covered with clean dressing. NEURO: Alert & Oriented x4 to person, place, time, situation. Moves all ext x4 Procedures central line placement I/D left foot/ ankle with wound vac placement Medications and IVs Current Medications Sodium Chloride 1,000 ml @ 2,000 mls/hr Q30M ONCE IV Last administered on 09/05 23:55; Start 09/05/16 at 23:22; Stop 09/05/16 at 23:51; Status DC Sodium Chloride (NS 1000 ml Inj) 1,000 ml @ 2,000 mls/hr Q30M ONCE IV Last administered on 09/06/16 00:40; Start 09/05/16 at 23:52; Stop 09/06/16 at 00:21 ; Status DC IV Flush 2 ml 2 ml UNSCH PRN IVF FLUSH AFTER USING IV ACCESS; Start 09/05/16 at 23:30; Stop 09/06/16 at 02:17; Status DC Vancomycin HCl 1000 mg/Sodium Chloride 250 ml @ 250 mls/hr ONCE ONCE IV Last administered on 09/06/16 05:02; Start 09/05/16 at 23:30; Stop 09/06/16 at 00:29 ; Status DC Clindamycin Phosphate/Sodium Chloride (Cleocin Inj/NS Inj) 106 ml @ 212 mls/hr ONCE ONCE IV Last administered on 09/06/16 01:46; Start 09/06/16 at 00:45; Stop 09/06/16 at 01:14; Status DC Insulin Human Regular (NovoLIN R INJ) 7 units ONCE ONCE IV PUSH Last administered on 09/06/16 01:09; Start 09/06/16 at 00:45; Stop 09/06/16 at 00:46 ; Status DC Ondansetron HCl (Zofran Inj) 4 mg ONCE ONCE IV PUSH Last administered on 01:46; Start 09/06/16 at 01:45; Stop 09/06/16 at 01:46; Status DC Hydromorphone HCl 0.5 mg 0.5 mg ONCE ONCE IV PUSH Last administered on 01:46; Start 09/06/16 at 01:45; Stop 09/06/16 at 01:46; Status DC Piperacillin Sod/ Tazobactam Sod 50 ml @ 100 mls/hr ONCE ONCE IV Last administered on 09/06/16 02:27; Start 09/06/16 at 02:00; Stop 09/06/16 at 02:29 ; Status DC Sodium Chloride (NS 1000 ml Inj) 1,000 ml @ 999 mls/hr BOLUS ONCE IV Last administered on 09/06/16 02:17; Start 09/06/16 at 02:00; Stop 09/06/16 at 03:00 ; Status DC IV Flush (NS Flush) 2 ml BID IVF ; Start 09/06/16 at 09:00; Stop 09/06/16 at 09: 00; Status DC IV Flush (NS Flush) 2 ml UNSCH PRN IVF FLUSH AFTER USING IV ACCESS; Start 09/06 at 02:15; Stop 09/06/16 at 02:54; Status DC Hydromorphone HCl 0.5 mg 0.5 mg ONCE ONCE IV PUSH Last administered on 02:33; Start 09/06/16 at 02:30; Stop 09/06/16 at 02:31; Status DC Potassium Chloride/Dextrose/ Sod Cl 1,000 ml @ 125 mls/hr Q8H IV ; Start at 02:30; Stop 09/06/16 at 03:17; Status DC Sodium Chloride (NS 1000 ml Inj) 1,000 ml @ 100 mls/hr Q10H IV Last administered on 09/06/16 05:53; Start 09/06/16 at 02:45; Stop 09/06/16 at 10:19 ; Status DC IV Flush (NS Flush) 2 ml UNSCH PRN FLUSH FLUSH AFTER USING IV ACCESS Last administered on 09/06/16 10:05; Start 09/06/16 at 02:45 IV Flush (NS Flush) 2 ml BID FLUSH Last administered on 09/14/16 22:04; Start 09/06/16 at 09:00 Acetaminophen (Tylenol) 650 mg Q4H PRN PO TEMP > 100.4 Last administered on 05:45; Start 09/06/16 at 02:45 Ondansetron HCl (Zofran Inj) 4 mg Q6H PRN IVP NAUSEA OR VOMITING; Start at 02:45 Sennosides (Senokot) 17.2 mg Q12H PRN PO CONSTIPATION; Start 09/06/16 at 02:45 Heparin Sodium (Porcine) (Heparin Inj) 5,000 units Q12H SQ Last administered on 09/15/16 02:28; Start 09/06/16 at 02:45 Naloxone HCl 0.4 mg 0.4 mg UNSCH PRN IV SEE LABEL COMMENTS; Start 09/06/16 at 02:45 Pharmacy Profile Note 0 ml @ 0 mls/hr UNSCH OTHER ; Start 09/06/16 at 02:45; Stop 09/06/16 at 09:07; Status DC Piperacillin Sod/ Tazobactam Sod (Zosyn 3.375 Gm Premix) 50 ml @ 100 mls/hr Q6H IV Last administered on 09/10/16 09:54; Start 09/06/16 at 09:00; Stop at 13:07; Status DC Dextrose (D50w (Vial) Inj) 25 ml UNSCH PRN IV PUSH HYPOGLYCEMIA-SEE COMMENTS Last administered on 09/14/16 18:39; Start 09/06/16 at 02:45 Glucagon (Glucagon Inj) 1 mg UNSCH PRN OTHER HYPOGLYCEMIA-SEE COMMENTS Last administered on 09/06/16 10:42; Start 09/06/16 at 02:45 Insulin Aspart (NovoLOG SUPPLEMENTAL SCALE) 1 ACHS SLIDING SCALE SQ Last administered on 09/07/16 05:28; Start 09/06/16 at 07:00; Stop 09/07/16 at 13:17 ; Status DC Dextrose (D50w (Syr) Inj) 25 ml ONCE ONCE IV ; Start 09/06/16 at 03:45; Stop at 03:46; Status Cancel Dextrose 25 ml 25 ml ONCE ONCE IV Last administered on 09/06/16 03:54; Start 09/06/16 at 04:00; Stop 09/06/16 at 04:01; Status DC Vancomycin HCl/ Sodium Chloride (Vancomycin Inj/ NS 500 ml Inj) 515 ml @ 257.5 mls/ hr Q24H IV ; Start 09/06/16 at 22:00; Stop 09/07/16 at 11:00; Status DC Miscellaneous Information SPECIFIC LAB TO BE LEANDRO... ONCE ONCE XX ; Start at 21:45; Stop 09/08/16 at 21:46; Status Cancel Hydromorphone HCl 1 mg 1 mg ONCE ONCE IV PUSH Last administered on 09/06/16 05:07; Start 09/06/16 at 05:00; Stop 09/06/16 at 05:01; Status DC Pharmacy Profile Note (Vancomycin Consult Pharmacy) 0 ml @ 0 mls/hr UNSCH OTHER ; Start 09/06/16 at 09:15; Stop 09/09/16 at 17:49; Status DC Dextrose (D25w Inj) 10 ml ONCE ONCE IV PUSH ; Start 09/06/16 at 10:00; Stop at 10:03; Status DC Hydromorphone HCl 0.5 mg 0.5 mg Q4H PRN IV PUSH BREAKTHROUGH PAIN Last administered on 09/15/16 02:29; Start 09/06/16 at 10:00 Levofloxacin/ Dextrose (Levaquin 500 Mg Premix Inj) 100 ml @ 100 mls/hr Q24H IV Last administered on 09/07/16 10:00; Start 09/06/16 at 10:00; Stop at 23:49; Status DC Alprazolam (Xanax) 2 mg Q6H PRN PO ANXIETY Last administered on 09/15/16 02:29 ; Start 09/06/16 at 10:00 Carbamazepine (TEGretol) 200 mg BID PO Last administered on 09/14/16 22:05; Start 09/06/16 at 21:00 Carisoprodol (Soma) 350 mg QID PRN PO MUSCLE SPASM Last administered on 23:54; Start 09/06/16 at 10:00 Gabapentin (Neurontin) 600 mg Q12HR PO Last administered on 09/07/16 09:07; Start 09/06/16 at 21:00; Stop 09/07/16 at 14:06; Status DC Hydromorphone HCl (Dilaudid) 4 mg Q6H PRN PO PAIN SCALE 1 TO 10 Last administered on 09/08/16 10:12; Start 09/06/16 at 10:00; Stop 09/08/16 at 12:55 ; Status DC Prazosin HCl (Minipress) 1 mg DAILY PO ; Start 09/07/16 at 09:00; Stop 09/07/16 at 14:03; Status DC Promethazine HCl (Phenergan) 25 mg Q6H PRN PO Nausea/Vomiting Last administered on 09/10/16 12:53; Start 09/06/16 at 10:00 Quetiapine Fumarate (SEROquel) 200 mg DAILY PO ; Start 09/07/16 at 09:00; Stop 09/07/16 at 14:05; Status DC Ropinirole HCl 2 mg 2 mg HS PO Last administered on 09/14/16 22:05; Start at 21:00 Dextrose/Sodium Chloride 1,000 ml @ 100 mls/hr Q10H IV Last administered on 01:28; Start 09/06/16 at 10:19; Stop 09/07/16 at 14:22; Status DC Lactated Ringer's 1,000 ml @ 30 mls/hr Q24H IV ; Start 09/06/16 at 13:15; Stop 09/06/16 at 16:55; Status DC Sodium Chloride (NS 500 ml Inj) 500 ml @ 30 mls/hr [id number] IV ; Start 09/06/16 at 13:15; Stop 09/07/16 at 13:14; Status DC Insulin Human Regular (NovoLIN R INJ) See Protocol Table ... UNSCH X1 PRN SQ SEE PROTOCOL; Start 09/06/16 at 13:15; Stop 09/06/16 at 16:55; Status DC Metoprolol Tartrate (Lopressor) 25 mg UNSCH X1 PRN PO SEE LABEL COMMENTS; Start 09/06/16 at 13:15; Stop 09/06/16 at 16:55; Status DC Bupivacaine HCl (Marcaine Pf 0.25% Inj) 30 ml STK-MED ONCE .ROUTE ; Start at 13:12; Stop 09/06/16 at 13:13; Status DC Lidocaine HCl (Xylocaine 1% Inj (50 ml)) 50 ml STK-MED ONCE .ROUTE Last administered on 09/06/16 15:49; Start 09/06/16 at 13:12; Stop 09/06/16 at 13:13 ; Status DC Bupivacaine HCl (Marcaine Pf 0.5% Inj) 30 ml STK-MED ONCE .ROUTE Last administered on 09/06/16 15:49; Start 09/06/16 at 14:54; Stop 09/06/16 at 14:55 ; Status DC Midazolam HCl (Versed Inj) 4 mg STK-MED ONCE .ROUTE ; Start 09/06/16 at 15:48; Stop 09/06/16 at 15:49; Status DC Fentanyl Citrate (fentaNYL INJ) 250 mcg STK-MED ONCE .ROUTE ; Start 09/06/16 at 15:48; Stop 09/06/16 at 15:49; Status DC IV Flush (NS Flush) 2 ml UNSCH PRN IVF FLUSH AFTER USING IV ACCESS; Start 09/06 at 16:45; Stop 09/06/16 at 16:56; Status DC IV Flush (NS Flush) 2 ml BID IVF ; Start 09/06/16 at 21:00; Stop 09/06/16 at 21: 00; Status DC Miscellaneous Information (Post-op Orders (for Pharmacy)) STAT ONCE XX ; Start 09/06/16 at 16:45; Stop 09/06/16 at 16:54; Status DC Hydromorphone HCl (*DILAUDID PF INJ PERIprocedural ONLY) 1 mg STK-MED ONCE .ROUTE Last administered on 09/06/16 16:41; Start 09/06/16 at 16:41; Stop at 16:42; Status DC Hydromorphone HCl (*DILAUDID PF INJ PERIprocedural ONLY) 1 mg STK-MED ONCE .ROUTE Last administered on 09/06/16 16:48; Start 09/06/16 at 16:48; Stop at 16:49; Status DC Midazolam HCl (Versed Inj) 4 mg STK-MED ONCE .ROUTE ; Start 09/06/16 at 16:51; Stop 09/06/16 at 16:52; Status DC Fentanyl Citrate (fentaNYL INJ) 500 mcg STK-MED ONCE .ROUTE ; Start 09/06/16 at 16:51; Stop 09/06/16 at 16:52; Status DC Fentanyl Citrate (fentaNYL INJ) 200 mcg STK-MED ONCE .ROUTE ; Start 09/06/16 at 16:51; Stop 09/06/16 at 16:52; Status DC Morphine Sulfate (Morphine Inj) 8 mg STK-MED ONCE .ROUTE ; Start 09/06/16 at 16: 51; Stop 09/06/16 at 16:52; Status DC Hydroxyzine HCl (*VISTARIL INJ PERIprocedural ONLY) 25 mg STK-MED ONCE IM Last administered on 09/06/16 16:56; Start 09/06/16 at 16:56; Stop 09/06/16 at 16:57 ; Status DC Hydromorphone HCl (*DILAUDID PF INJ PERIprocedural ONLY) 1 mg STK-MED ONCE .ROUTE Last administered on 09/06/16 16:57; Start 09/06/16 at 16:57; Stop at 16:58; Status DC Neomycin/ Polymyxin 2 ml 2 ml STK-MED ONCE IR Last administered on 09/06/16 16 :00; Start 09/06/16 at 16:00; Stop 09/06/16 at 17:48; Status DC Vancomycin HCl/ Sodium Chloride (Vancomycin Inj/ NS 250 ml Inj) 250 ml @ 250 mls/hr Q12H IV Last administered on 09/09/16 01:32; Start 09/07/16 at 12:00; Stop 09/09/16 at 15:15; Status DC Miscellaneous Information SPECIFIC LAB TO BE LEANDRO... ONCE ONCE XX Last administered on 09/09/16 11:45; Start 09/09/16 at 11:45; Stop 09/09/16 at 11:46 ; Status DC Insulin Human Regular (NovoLIN R SUPPLEMENTAL SCALE) 1 ACHS SLIDING SCALE SQ Last administered on 09/14/16 06:48; Start 09/07/16 at 16:00 Prazosin HCl (Minipress) 2 mg HS PO Last administered on 09/13/16 19:56; Start 09/07/16 at 21:00 Quetiapine Fumarate (SEROquel) 200 mg HS PO Last administered on 09/14/16 22: 05; Start 09/07/16 at 21:00 Gabapentin (Neurontin) 400 mg BID@09,12 PO Last administered on 09/14/16 14:05 ; Start 09/08/16 at 09:00 Gabapentin (Neurontin) 800 mg HS PO Last administered on 09/14/16 22:04; Start 09/07/16 at 21:00 Insulin Detemir (Levemir Inj) 40 units DAILY SQ ; Start 09/08/16 at 09:00; Stop 09/08/16 at 10:45; Status DC Insulin Detemir 20 units 20 units HS SQ Last administered on 09/07/16 21:49; Start 09/07/16 at 21:00; Stop 09/08/16 at 10:49; Status DC Sodium Chloride (NS 1000 ml Inj) 1,000 ml @ 100 mls/hr Q10H IV Last administered on 09/15/16 03:00; Start 09/07/16 at 15:00 Insulin Detemir (Levemir Inj) 10 units Q12HR SQ Last administered on 09/07/16 21:49; Start 09/07/16 at 21:00; Stop 09/08/16 at 10:49; Status DC Calcium Carbonate (Oscal) 500 mg Q12HR PO Last administered on 09/14/16 09:36 ; Start 09/07/16 at 21:00; Stop 09/14/16 at 20:59; Status DC Clindamycin HCl (Cleocin) 450 mg Q6HR PO Last administered on 09/10/16 11:29; Start 09/08/16 at 00:00; Stop 09/10/16 at 13:08; Status DC Bupivacaine HCl (Marcaine Pf 0.5% Inj) 30 ml STK-MED ONCE .ROUTE Last administered on 09/08/16 08:24; Start 09/08/16 at 07:12; Stop 09/08/16 at 07:13 ; Status DC Lidocaine HCl (Xylocaine 1% Inj (50 ml)) 50 ml STK-MED ONCE .ROUTE Last administered on 09/08/16 08:24; Start 09/08/16 at 07:13; Stop 09/08/16 at 07:14 ; Status DC Neomycin/Polymyxin (Neosporin G.u. Irr) 2 ml STK-MED ONCE IR Last administered on 09/08/16 07:18; Start 09/08/16 at 07:18; Stop 09/08/16 at 07:19; Status DC Midazolam HCl (Versed Inj) 2 mg STK-MED ONCE .ROUTE ; Start 09/08/16 at 07:56; Stop 09/08/16 at 07:57; Status DC Fentanyl Citrate (fentaNYL INJ) 250 mcg STK-MED ONCE .ROUTE ; Start 09/08/16 at 07:56; Stop 09/08/16 at 07:57; Status DC Acetaminophen (Ofirmev Inj) 1,000 mg STK-MED ONCE IV ; Start 09/08/16 at 07:56; Stop 09/08/16 at 07:57; Status DC Sugammadex Sodium (Bridion Inj) 200 mg STK-MED ONCE IV PUSH ; Start 09/08/16 at 07:57; Stop 09/08/16 at 07:58; Status DC IV Flush (NS Flush) 2 ml UNSCH PRN IVF FLUSH AFTER USING IV ACCESS; Start 09/08 at 09:00; Stop 09/08/16 at 09:06; Status DC IV Flush (NS Flush) 2 ml BID IVF ; Start 09/08/16 at 09:00; Stop 09/08/16 at 09: 06; Status DC Miscellaneous Information (Post-op Orders (for Pharmacy)) STAT ONCE XX ; Start 09/08/16 at 09:00; Stop 09/08/16 at 09:19; Status DC Hydromorphone HCl (*DILAUDID PF INJ PERIprocedural ONLY) 1 mg STK-MED ONCE .ROUTE Last administered on 09/08/16 09:00; Start 09/08/16 at 09:00; Stop at 09:01; Status DC Morphine Sulfate (Morphine Inj) 4 mg STK-MED ONCE .ROUTE ; Start 09/08/16 at 09: 01; Stop 09/08/16 at 09:02; Status DC Miscellaneous Information ALL NURSING DEPARTME... UNSCH PRN XX SEE LABEL COMMENTS; Start 09/08/16 at 08:55; Stop 09/09/16 at 08:54; Status DC Insulin Detemir (Levemir Inj) 20 units DAILYAC SQ ; Start 09/09/16 at 08:00; Stop 09/09/16 at 11:17; Status DC Insulin Detemir (Levemir Inj) 10 units HS SQ Last administered on 09/13/16 19: 57; Start 09/08/16 at 21:00 Hydromorphone HCl (Dilaudid) 4 mg Q4H PRN PO PAIN SCALE 6 TO 10 Last administered on 09/15/16 06:11; Start 09/08/16 at 14:00 Hydromorphone HCl (Dilaudid) 2 mg Q4H PRN PO pain3-5 Last administered on 09:31; Start 09/08/16 at 13:00 Insulin Detemir (Levemir Inj) 30 units DAILYAC SQ Last administered on 09:37; Start 09/10/16 at 08:00 Insulin Aspart 3 units 3 units TIDAC SQ Last administered on 09/13/16 17:54; Start 09/09/16 at 12:00; Status Hold Vancomycin HCl/ Sodium Chloride (Vancomycin Inj/ NS 500 ml Inj) 515 ml @ 257.5 mls/ hr Q12H IV ; Start 09/09/16 at 20:00; Stop 09/09/16 at 20:00; Status DC Miscellaneous Information SPECIFIC LAB TO BE DRAWN:VANCOMYCIN TROUGH DATE TO... ONCE ONCE XX ; Start 09/11/16 at 07:45; Stop 09/11/16 at 07:45; Status DC Fluconazole 200 mg 200 mg DAILY PO Last administered on 09/10/16 09:54; Start 09/09/16 at 18:00; Stop 09/10/16 at 13:07; Status DC Lactated Ringer's 1,000 ml @ 30 mls/hr Q24H IV Last administered on 09/11/16 07:30; Start 09/10/16 at 08:30 Sodium Chloride 500 ml @ 30 mls/hr [id number] IV ; Start 09/10/16 at 08:30; Stop 09/11/16 at 08:29; Status DC Dextrose/Sodium Chloride (D5W-NS 1000 ml Inj) 1,000 ml @ 60 mls/hr [id number] IV Last administered on 09/10/16 11:25; Start 09/10/16 at 11:15; Stop 09/11/16 at 03:54; Status DC Acetaminophen (Tylenol Supp) 325 mg Q4H PRN RECTAL fever >100.4 Last administered on 09/10/16 12:21; Start 09/10/16 at 12:00 Propofol (Diprivan 200 Mg/20 ml Inj) 200 mg STK-MED ONCE IV ; Start 09/06/16 at 12:00; Stop 09/10/16 at 12:53; Status DC Ondansetron HCl 4 mg 4 mg STK-MED ONCE IV PUSH ; Start 09/06/16 at 12:00; Stop 09/10/16 at 12:53; Status DC Lactated Ringer's 1,000 ml @ As Directed STK-MED ONCE IV ; Start 09/06/16 at 12 :00; Stop 09/10/16 at 12:53; Status DC Ceftriaxone Sodium 2000 mg/ Sodium Chloride 100 ml @ 200 mls/hr Q24H IV Last administered on 09/11/16 13:42; Start 09/10/16 at 14:00; Stop 09/12/16 at 08:20 ; Status DC Fluconazole/ Sodium Chloride (Diflucan 400 Mg Premix Bag) 200 ml @ 100 mls/hr Q24H IV Last administered on 09/14/16 15:00; Start 09/10/16 at 15:00 Propofol (Diprivan 200 Mg/20 ml Inj) 200 mg STK-MED ONCE IV ; Start 09/08/16 at 12:00; Stop 09/10/16 at 13:13; Status DC Ondansetron HCl 4 mg 4 mg STK-MED ONCE IV PUSH ; Start 09/08/16 at 12:00; Stop 09/10/16 at 13:13; Status DC Lactated Ringer's (Lr 1000 ml Inj) 1,000 ml @ As Directed STK-MED ONCE IV ; Start 09/08/16 at 12:00; Stop 09/10/16 at 13:13; Status DC Fentanyl Citrate (fentaNYL INJ) 250 mcg STK-MED ONCE .ROUTE ; Start 09/11/16 at 07:05; Stop 09/11/16 at 07:06; Status DC Midazolam HCl (Versed Inj) 2 mg STK-MED ONCE .ROUTE ; Start 09/11/16 at 07:16; Stop 09/11/16 at 07:17; Status DC Midazolam HCl (Versed Inj) 2 mg STK-MED ONCE .ROUTE ; Start 09/11/16 at 07:16; Stop 09/11/16 at 07:17; Status DC Bupivacaine HCl (Marcaine Pf 0.5% Inj) 30 ml STK-MED ONCE .ROUTE Last administered on 09/11/16 08:00; Start 09/11/16 at 07:33; Stop 09/11/16 at 07:34 ; Status DC Lidocaine HCl (Xylocaine-Mpf 2% Inj) 30 ml STK-MED ONCE .ROUTE Last administered on 09/11/16 08:00; Start 09/11/16 at 07:33; Stop 09/11/16 at 07:34 ; Status DC Hydromorphone HCl (*DILAUDID PF INJ PERIprocedural ONLY) 1 mg STK-MED ONCE .ROUTE Last administered on 09/11/16 08:58; Start 09/11/16 at 08:58; Stop at 08:59; Status DC Meperidine HCl (*DEMEROL INJ PERIprocedural ONLY) 25 mg STK-MED ONCE .ROUTE Last administered on 09/11/16 09:05; Start 09/11/16 at 09:05; Stop 09/11/16 at 09:06; Status DC Hydromorphone HCl (*DILAUDID PF INJ PERIprocedural ONLY) 1 mg STK-MED ONCE .ROUTE Last administered on 09/11/16 09:12; Start 09/11/16 at 09:12; Stop at 09:13; Status DC Miscellaneous Information ALL NURSING DEPARTME... UNSCH PRN XX SEE LABEL COMMENTS; Start 09/11/16 at 08:49; Stop 09/12/16 at 08:48; Status DC Hydroxyzine HCl (*VISTARIL INJ PERIprocedural ONLY) 25 mg STK-MED ONCE IM Last administered on 09/11/16 09:12; Start 09/11/16 at 09:12; Stop 09/11/16 at 09:13 ; Status DC Insulin Detemir (Levemir Inj) 20 units NOW ONCE SQ Last administered on 12:34; Start 09/11/16 at 11:15; Stop 09/11/16 at 11:16; Status DC Neomycin/Polymyxin (Neosporin G.u. Irr) 1 ml STK-MED ONCE IR Last administered on 09/11/16 08:00; Start 09/11/16 at 08:00; Stop 09/11/16 at 12:34; Status DC Hydromorphone HCl 1 mg 1 mg ONCE ONCE IV PUSH Last administered on 09/12/16 00:35; Start 09/12/16 at 00:00; Stop 09/12/16 at 00:03; Status DC Cefepime HCl 2000 mg/Sodium Chloride 100 ml @ 200 mls/hr Q8H IV Last administered on 09/15/16 02:28; Start 09/12/16 at 10:00 Pharmacy Profile Note 0 ml @ 0 mls/hr UNSCH OTHER ; Start 09/12/16 at 08:30 Vancomycin HCl/ Sodium Chloride (Vancomycin Inj/ NS 500 ml Inj) 515 ml @ 250 mls/hr Q12H IV Last administered on 09/15/16 01:01; Start 09/12/16 at 12:00 Miscellaneous Information SPECIFIC LAB TO BE DRAWN:VANCOMYCIN TROUGH DATE TO... ONCE ONCE XX ; Start 09/14/16 at 11:45; Stop 09/14/16 at 11:46; Status DC Propofol (Diprivan 200 Mg/20 ml Inj) 200 mg STK-MED ONCE IV ; Start 09/11/16 at 10:45; Stop 09/12/16 at 10:45; Status DC Neostigmine Methylsulfate (Prostigmin Inj) 3 mg STK-MED ONCE IV ; Start at 10:45; Stop 09/12/16 at 10:45; Status DC Ondansetron HCl (Zofran Inj) 4 mg STK-MED ONCE IV PUSH ; Start 09/11/16 at 10:45 ; Stop 09/12/16 at 10:45; Status DC Miscellaneous Information SPECIFIC LAB TO BE DRAWN:VANCOMYCIN TROUGH DATE TO... ONCE ONCE XX Last administered on 09/14/16t 23:45; Start 09/14/16 at 23:45; Stop 09/14/16 at 23:46; Status DC A/P Assessment and Plan - Sepsis with Infected diabetic left foot gangrene/necrotizing fasciitis status post I&D continue with Iv antibiotics- podiatry and ID following. cleared by podiatry for discharge. - Acute increase in transaminitis>> questionable induced cefepime with Diflucan will monitor LFT's- - Acute on chronic anemia hemoglobin 7.6 mostly postop component, consider transfusing if goes below 7 -diabetes mellitus with hypoglycemic episode; decrease long-acting insulin and continue accu-check with SSI- hold AC novolog. - Chronic pain syndrome with neck surgery in the past; continue with pain control. - History of IV drug abuse in the past . Discharge Planning dc home with [facility] when cleared by ID. Uzair Rodriguez MD Sep 15, 2016 09:27
[2016-09-15] MEDS: CARISOPRODOL 350 MG TAB PO PRN ×2 (10:38→19:03)
[2016-09-15] MEDS: GABAPENTIN 400 MG CAP PO SCH ×3 (10:38→21:34)
[2016-09-15] MEDS: carBAMazepine 200 MG TAB PO SCH ×2 (10:39→21:34)
[2016-09-15 12:17] LABS: HEMATOCRIT 20.6 % (35.0-46.0)
[2016-09-15 12:36] LABS: ALKALINE PHOSPHATASE 560 U/L (45-117); ALT (GPT) 30 U/L (10-53); AST (GOT) 34 U/L (15-37); INDIRECT BILIRUBIN 0.1 MG/DL (0.0-0.8); TOTAL BILIRUBIN ADULT 0.2 MG/DL (0.2-1.0)
[2016-09-15 13:12] LABS: FERRITIN 116 NG/ML (8-252); TRANSFERRIN IRON PROFILE 161 MG/DL (200-360)
[2016-09-15] MEDS: FLUCONAZOLE 400 MG PREMIX BAG 200 ML IV SCH (15:28)
[2016-09-15] MEDS: SODIUM CHLORIDE 0.9% FLUSH 5 ML FLUSH FLUSH SCH (21:33)
[2016-09-15] MEDS: PRAZOSIN HCL 2 MG CAP PO SCH (21:34)
[2016-09-15] MEDS: QUEtiapine FUMARATE 200 MG TAB PO SCH (21:34)
[2016-09-15] MEDS: INSULIN DETEMIR 100 UNITS/ML VIAL SQ SCH (23:14)
[2016-09-16] VITALS (9 sets, daily range): BP systolic 118–148; BP diastolic 56–87; PULSE 85–125; RESP 17–18; TEMP 97.5–102.2; O2SAT 93–98
[2016-09-16] MEDS: CEFEPIME INJ 2,000 MG in SODIUM CHLORIDE 0.9% INJ 100 ML IV SCH ×2 (02:17→08:32)
[2016-09-16] MEDS ORDERED: ACETAMINOPHEN 325 MG TAB PO PRN (03:30)
[2016-09-16] MEDS: HYDROmorphone HCL 4 MG TAB PO PRN ×3 (03:42→15:18)
[2016-09-16] MEDS: HYDROmorphone HCL PF 1 MG/ML VIAL IV PUSH PRN ×2 (05:58→15:17)
[2016-09-16 06:04] LABS: AUTOMATED NEUTROPHIL # 9.9 TH/MM3 (1.8-7.7); BASOPHIL # 0.1 TH/MM3 (0-0.2); BASOPHIL % 0.7 % (0.0-2.0); EOSINOPHIL # 0.2 TH/MM3 (0-0.4); HEMATOCRIT 22.9 % (35.0-46.0); HEMO FLAGS DIFF FINAL; LYMPH % 6.5 % (9.0-44.0); LYMPHOCYTE # 0.7 TH/MM3 (1.0-4.8); MEAN CORPUSCULAR HEMOGLOBIN 26.9 PG (27.0-34.0); MEAN CORPUSCULAR HGB CONC 31.7 % (32.0-36.0); MONO % 2.8 % (0.0-8.0); PLATELET COUNT 283 TH/MM3 (150-450); RED BLOOD COUNT 2.69 MIL/MM3 (4.00-5.30); RED CELL DISTRIBUTION WIDTH 17.1 % (11.6-17.2); WHITE BLOOD COUNT 11.2 TH/MM3 (4.0-11.0)
[2016-09-16] MEDS: ALPRAZolam 1 MG TAB PO PRN ×3 (06:06→18:30)
[2016-09-16] MEDS: CARISOPRODOL 350 MG TAB PO PRN ×3 (06:06→18:30)
[2016-09-16] MEDS: INSULIN NovoLIN REGULAR SUPPLEMENTAL SCALE SQ SCH ×4 (06:08→20:57)
[2016-09-16 06:13] LABS: ALT (GPT) 27 U/L (10-53); ANION GAP 9 MEQ/L (5-15); AST (GOT) 21 U/L (15-37); BICARBONATE 23.7 MEQ/L (21.0-32.0); BLOOD UREA NITROGEN 6 MG/DL (7-18); CHLORIDE 105 MEQ/L (98-107); GLOMERULAR FILTRATION RATE 114 ML/MIN (>89); POTASSIUM 3.6 MEQ/L (3.5-5.1); SODIUM (NA) 138 MEQ/L (136-145)
[2016-09-16 06:16] LABS: ALKALINE PHOSPHATASE 575 U/L (45-117); TOTAL BILIRUBIN ADULT 0.3 MG/DL (0.2-1.0)
--- NOTE | 2016-09-16 06:21 | RADRPT ---
EXAM DATE/TIME: 09/16/2016 05:38 [place] COMPARISON: CHEST SINGLE AP, September 12, 2016, 8:32. INDICATIONS : Fever. MEDICAL HISTORY : Myocardial infarction. Diabetes mellitus type II. Arthritis. SURGICAL HISTORY : Cholecystectomy. ENCOUNTER: Subsequent ACUITY: 1 week PAIN SCORE: 0/10 LOCATION: Bilateral chest FINDINGS: A single view of the chest demonstrates subsegmental airspace disease at the left lung base. Right bakari ng clear. No effusion. No pneumothorax. Previous fusion lower cervical spine. CONCLUSION: 1. Subsegmental atelectasis the left lung base. Right lung clear. Morales Rey MD on September 16, 2016 at 6:13 Board Certified Radiologist. This report was verified electronically.
[2016-09-16] MEDS: GABAPENTIN 400 MG CAP PO SCH ×3 (08:30→20:55)
[2016-09-16] MEDS: LACTATED RINGER'S 1000 ML IV SCH (08:30)
[2016-09-16] MEDS: carBAMazepine 200 MG TAB PO SCH ×2 (08:30→20:56)
[2016-09-16] MEDS: INSULIN DETEMIR 100 UNITS/ML VIAL SQ SCH ×2 (08:31→20:57)
[2016-09-16] MEDS: HYDROmorphone HCL 2 MG TAB PO PRN ×2 (08:31→20:58)
[2016-09-16] MEDS: SODIUM CHLORIDE 0.9% FLUSH 5 ML FLUSH FLUSH SCH ×2 (08:33→20:56)
--- NOTE | 2016-09-16 11:28 | HHI.PR ---
Subjective Remarks having chills. noted that had a high fever earlier this morning; T max 101.5. no sob or cough. Objective Vitals Vital Signs Date Time Temp Pulse Resp B/P Pulse Ox O2 Delivery O2 Flow Rate FiO2 09/16/16 10:18 100 09/16/16 08:37 99.8 105 18 128/68 96 09/16/16 04:35 101.5 104 17 126/64 98 09/16/16 00:25 97.5 85 17 139/87 98 09/15/16 20:29 97.7 90 17 140/95 98 09/15/16 16:00 97.9 84 18 116/69 97 09/15/16 12:00 98.1 80 20 108/68 96 I/O 09/15/16 09/15/16 09/15/16 09/16/16 09/16/16 09/16/16 07:00 15:00 23:00 07:00 15:00 23:00 Intake Total 600 ml 720 ml 360 ml Balance 600 ml 720 ml 360 ml Intake Oral 600 ml 720 ml 360 ml # Voids 5 3 4 # Bowel Movements 1 1 Result Diagram: 09/16/16 0540 09/16/16 0546 Imaging Last Impressions Chest X-Ray 09/16/16 0000 Signed Impressions: Service Date/Time: Friday, September 16, 2016 05:38 - CONCLUSION: 1. Subsegmental atelectasis the left lung base. Right lung clear. Morales Rey MD Lower Extremity Ultrasound 09/12/16 0000 Signed Impressions: Service Date/Time: August 17:55 - CONCLUSION: Negative for DVT. Nonspecific left groin lymph nodes Francois Boothe MD Foot MRI 09/06/16 0000 Signed Impressions: Service Date/Time: Tuesday, September 06, 2016 11:35 - CONCLUSION: Significant abnormality on the medial side of the foot with abnormal signal in the tarsal navicular and first cuneiform. Gonzalo Sears MD FACR Foot X-Ray 09/05/16 0000 Signed Impressions: Service Date/Time: August 23:39 - CONCLUSION: 1. There is no evidence of acute fracture. 2. Soft tissue swelling is present with gas in the soft tissues. No plain film findings of osteomyelitis. If there is necessity for further evaluation contrast-enhanced MRI is recommended. Gaurav Parks MD Ankle X-Ray 09/05/16 0000 Signed Impressions: Service Date/Time: August 23:36 - CONCLUSION: 1. There is no evidence of acute fracture. Gaurav Parks MD Objective Remarks GENERAL: This is a well-nourished, well-developed patient, in no apparent distress. CARDIOVASCULAR: Regular rate and regular rhythm without murmurs, gallops, or rubs. RESPIRATORY: Clear to auscultation. Breath sounds equal bilaterally. No wheezes , rales, or rhonchi. GASTROINTESTINAL: Abdomen soft, non-tender, nondistended. Normal, active bowel sounds MUSCULOSKELETAL: left foot covered with clean dressing. NEURO: Alert & Oriented x4 to person, place, time, situation. Moves all ext x4 Procedures central line placement I/D left foot/ ankle with wound vac placement Medications and IVs Current Medications Sodium Chloride 1,000 ml @ 2,000 mls/hr Q30M ONCE IV Last administered on 09/05 23:55; Start 09/05/16 at 23:22; Stop 09/05/16 at 23:51; Status DC Sodium Chloride (NS 1000 ml Inj) 1,000 ml @ 2,000 mls/hr Q30M ONCE IV Last administered on 09/06/16 00:40; Start 09/05/16 at 23:52; Stop 09/06/16 at 00:21 ; Status DC IV Flush 2 ml 2 ml UNSCH PRN IVF FLUSH AFTER USING IV ACCESS; Start 09/05/16 at 23:30; Stop 09/06/16 at 02:17; Status DC Vancomycin HCl 1000 mg/Sodium Chloride 250 ml @ 250 mls/hr ONCE ONCE IV Last administered on 09/06/16 05:02; Start 09/05/16 at 23:30; Stop 09/06/16 at 00:29 ; Status DC Clindamycin Phosphate/Sodium Chloride (Cleocin Inj/NS Inj) 106 ml @ 212 mls/hr ONCE ONCE IV Last administered on 09/06/16 01:46; Start 09/06/16 at 00:45; Stop 09/06/16 at 01:14; Status DC Insulin Human Regular (NovoLIN R INJ) 7 units ONCE ONCE IV PUSH Last administered on 09/06/16 01:09; Start 09/06/16 at 00:45; Stop 09/06/16 at 00:46 ; Status DC Ondansetron HCl (Zofran Inj) 4 mg ONCE ONCE IV PUSH Last administered on 01:46; Start 09/06/16 at 01:45; Stop 09/06/16 at 01:46; Status DC Hydromorphone HCl 0.5 mg 0.5 mg ONCE ONCE IV PUSH Last administered on 01:46; Start 09/06/16 at 01:45; Stop 09/06/16 at 01:46; Status DC Piperacillin Sod/ Tazobactam Sod 50 ml @ 100 mls/hr ONCE ONCE IV Last administered on 09/06/16 02:27; Start 09/06/16 at 02:00; Stop 09/06/16 at 02:29 ; Status DC Sodium Chloride (NS 1000 ml Inj) 1,000 ml @ 999 mls/hr BOLUS ONCE IV Last administered on 09/06/16 02:17; Start 09/06/16 at 02:00; Stop 09/06/16 at 03:00 ; Status DC IV Flush (NS Flush) 2 ml BID IVF ; Start 09/06/16 at 09:00; Stop 09/06/16 at 09: 00; Status DC IV Flush (NS Flush) 2 ml UNSCH PRN IVF FLUSH AFTER USING IV ACCESS; Start 09/06 at 02:15; Stop 09/06/16 at 02:54; Status DC Hydromorphone HCl 0.5 mg 0.5 mg ONCE ONCE IV PUSH Last administered on 02:33; Start 09/06/16 at 02:30; Stop 09/06/16 at 02:31; Status DC Potassium Chloride/Dextrose/ Sod Cl 1,000 ml @ 125 mls/hr Q8H IV ; Start at 02:30; Stop 09/06/16 at 03:17; Status DC Sodium Chloride (NS 1000 ml Inj) 1,000 ml @ 100 mls/hr Q10H IV Last administered on 09/06/16 05:53; Start 09/06/16 at 02:45; Stop 09/06/16 at 10:19 ; Status DC IV Flush (NS Flush) 2 ml UNSCH PRN FLUSH FLUSH AFTER USING IV ACCESS Last administered on 09/06/16 10:05; Start 09/06/16 at 02:45 IV Flush (NS Flush) 2 ml BID FLUSH Last administered on 09/16/16 08:33; Start 09/06/16 at 09:00 Acetaminophen (Tylenol) 650 mg Q4H PRN PO TEMP > 100.4 Last administered on 05:45; Start 09/06/16 at 02:45 Ondansetron HCl (Zofran Inj) 4 mg Q6H PRN IVP NAUSEA OR VOMITING; Start at 02:45 Sennosides (Senokot) 17.2 mg Q12H PRN PO CONSTIPATION; Start 09/06/16 at 02:45 Heparin Sodium (Porcine) (Heparin Inj) 5,000 units Q12H SQ Last administered on 09/15/16 15:28; Start 09/06/16 at 02:45 Naloxone HCl 0.4 mg 0.4 mg UNSCH PRN IV SEE LABEL COMMENTS; Start 09/06/16 at 02:45 Pharmacy Profile Note 0 ml @ 0 mls/hr UNSCH OTHER ; Start 09/06/16 at 02:45; Stop 09/06/16 at 09:07; Status DC Piperacillin Sod/ Tazobactam Sod (Zosyn 3.375 Gm Premix) 50 ml @ 100 mls/hr Q6H IV Last administered on 09/10/16 09:54; Start 09/06/16 at 09:00; Stop at 13:07; Status DC Dextrose (D50w (Vial) Inj) 25 ml UNSCH PRN IV PUSH HYPOGLYCEMIA-SEE COMMENTS Last administered on 09/14/16 18:39; Start 09/06/16 at 02:45 Glucagon (Glucagon Inj) 1 mg UNSCH PRN OTHER HYPOGLYCEMIA-SEE COMMENTS Last administered on 09/06/16 10:42; Start 09/06/16 at 02:45 Insulin Aspart (NovoLOG SUPPLEMENTAL SCALE) 1 ACHS SLIDING SCALE SQ Last administered on 09/07/16 05:28; Start 09/06/16 at 07:00; Stop 09/07/16 at 13:17 ; Status DC Dextrose (D50w (Syr) Inj) 25 ml ONCE ONCE IV ; Start 09/06/16 at 03:45; Stop at 03:46; Status Cancel Dextrose 25 ml 25 ml ONCE ONCE IV Last administered on 09/06/16 03:54; Start 09/06/16 at 04:00; Stop 09/06/16 at 04:01; Status DC Vancomycin HCl/ Sodium Chloride (Vancomycin Inj/ NS 500 ml Inj) 515 ml @ 257.5 mls/ hr Q24H IV ; Start 09/06/16 at 22:00; Stop 09/07/16 at 11:00; Status DC Miscellaneous Information SPECIFIC LAB TO BE LEANDRO... ONCE ONCE XX ; Start at 21:45; Stop 09/08/16 at 21:46; Status Cancel Hydromorphone HCl 1 mg 1 mg ONCE ONCE IV PUSH Last administered on 09/06/16 05:07; Start 09/06/16 at 05:00; Stop 09/06/16 at 05:01; Status DC Pharmacy Profile Note (Vancomycin Consult Pharmacy) 0 ml @ 0 mls/hr UNSCH OTHER ; Start 09/06/16 at 09:15; Stop 09/09/16 at 17:49; Status DC Dextrose (D25w Inj) 10 ml ONCE ONCE IV PUSH ; Start 09/06/16 at 10:00; Stop at 10:03; Status DC Hydromorphone HCl 0.5 mg 0.5 mg Q4H PRN IV PUSH BREAKTHROUGH PAIN Last administered on 09/16/16 05:58; Start 09/06/16 at 10:00 Levofloxacin/ Dextrose (Levaquin 500 Mg Premix Inj) 100 ml @ 100 mls/hr Q24H IV Last administered on 09/07/16 10:00; Start 09/06/16 at 10:00; Stop at 23:49; Status DC Alprazolam (Xanax) 2 mg Q6H PRN PO ANXIETY Last administered on 09/16/16 06:06 ; Start 09/06/16 at 10:00 Carbamazepine (TEGretol) 200 mg BID PO Last administered on 09/16/16 08:30; Start 09/06/16 at 21:00 Carisoprodol (Soma) 350 mg QID PRN PO MUSCLE SPASM Last administered on 06:06; Start 09/06/16 at 10:00 Gabapentin (Neurontin) 600 mg Q12HR PO Last administered on 09/07/16 09:07; Start 09/06/16 at 21:00; Stop 09/07/16 at 14:06; Status DC Hydromorphone HCl (Dilaudid) 4 mg Q6H PRN PO PAIN SCALE 1 TO 10 Last administered on 09/08/16 10:12; Start 09/06/16 at 10:00; Stop 09/08/16 at 12:55 ; Status DC Prazosin HCl (Minipress) 1 mg DAILY PO ; Start 09/07/16 at 09:00; Stop 09/07/16 at 14:03; Status DC Promethazine HCl (Phenergan) 25 mg Q6H PRN PO Nausea/Vomiting Last administered on 09/10/16 12:53; Start 09/06/16 at 10:00 Quetiapine Fumarate (SEROquel) 200 mg DAILY PO ; Start 09/07/16 at 09:00; Stop 09/07/16 at 14:05; Status DC Ropinirole HCl 2 mg 2 mg HS PO Last administered on 09/15/16 21:34; Start at 21:00 Dextrose/Sodium Chloride 1,000 ml @ 100 mls/hr Q10H IV Last administered on 01:28; Start 09/06/16 at 10:19; Stop 09/07/16 at 14:22; Status DC Lactated Ringer's 1,000 ml @ 30 mls/hr Q24H IV ; Start 09/06/16 at 13:15; Stop 09/06/16 at 16:55; Status DC Sodium Chloride (NS 500 ml Inj) 500 ml @ 30 mls/hr [id number] IV ; Start 09/06/16 at 13:15; Stop 09/07/16 at 13:14; Status DC Insulin Human Regular (NovoLIN R INJ) See Protocol Table ... UNSCH X1 PRN SQ SEE PROTOCOL; Start 09/06/16 at 13:15; Stop 09/06/16 at 16:55; Status DC Metoprolol Tartrate (Lopressor) 25 mg UNSCH X1 PRN PO SEE LABEL COMMENTS; Start 09/06/16 at 13:15; Stop 09/06/16 at 16:55; Status DC Bupivacaine HCl (Marcaine Pf 0.25% Inj) 30 ml STK-MED ONCE .ROUTE ; Start at 13:12; Stop 09/06/16 at 13:13; Status DC Lidocaine HCl (Xylocaine 1% Inj (50 ml)) 50 ml STK-MED ONCE .ROUTE Last administered on 09/06/16 15:49; Start 09/06/16 at 13:12; Stop 09/06/16 at 13:13 ; Status DC Bupivacaine HCl (Marcaine Pf 0.5% Inj) 30 ml STK-MED ONCE .ROUTE Last administered on 09/06/16 15:49; Start 09/06/16 at 14:54; Stop 09/06/16 at 14:55 ; Status DC Midazolam HCl (Versed Inj) 4 mg STK-MED ONCE .ROUTE ; Start 09/06/16 at 15:48; Stop 09/06/16 at 15:49; Status DC Fentanyl Citrate (fentaNYL INJ) 250 mcg STK-MED ONCE .ROUTE ; Start 09/06/16 at 15:48; Stop 09/06/16 at 15:49; Status DC IV Flush (NS Flush) 2 ml UNSCH PRN IVF FLUSH AFTER USING IV ACCESS; Start 09/06 at 16:45; Stop 09/06/16 at 16:56; Status DC IV Flush (NS Flush) 2 ml BID IVF ; Start 09/06/16 at 21:00; Stop 09/06/16 at 21: 00; Status DC Miscellaneous Information (Post-op Orders (for Pharmacy)) STAT ONCE XX ; Start 09/06/16 at 16:45; Stop 09/06/16 at 16:54; Status DC Hydromorphone HCl (*DILAUDID PF INJ PERIprocedural ONLY) 1 mg STK-MED ONCE .ROUTE Last administered on 09/06/16 16:41; Start 09/06/16 at 16:41; Stop at 16:42; Status DC Hydromorphone HCl (*DILAUDID PF INJ PERIprocedural ONLY) 1 mg STK-MED ONCE .ROUTE Last administered on 09/06/16 16:48; Start 09/06/16 at 16:48; Stop at 16:49; Status DC Midazolam HCl (Versed Inj) 4 mg STK-MED ONCE .ROUTE ; Start 09/06/16 at 16:51; Stop 09/06/16 at 16:52; Status DC Fentanyl Citrate (fentaNYL INJ) 500 mcg STK-MED ONCE .ROUTE ; Start 09/06/16 at 16:51; Stop 09/06/16 at 16:52; Status DC Fentanyl Citrate (fentaNYL INJ) 200 mcg STK-MED ONCE .ROUTE ; Start 09/06/16 at 16:51; Stop 09/06/16 at 16:52; Status DC Morphine Sulfate (Morphine Inj) 8 mg STK-MED ONCE .ROUTE ; Start 09/06/16 at 16: 51; Stop 09/06/16 at 16:52; Status DC Hydroxyzine HCl (*VISTARIL INJ PERIprocedural ONLY) 25 mg STK-MED ONCE IM Last administered on 09/06/16 16:56; Start 09/06/16 at 16:56; Stop 09/06/16 at 16:57 ; Status DC Hydromorphone HCl (*DILAUDID PF INJ PERIprocedural ONLY) 1 mg STK-MED ONCE .ROUTE Last administered on 09/06/16 16:57; Start 09/06/16 at 16:57; Stop at 16:58; Status DC Neomycin/ Polymyxin 2 ml 2 ml STK-MED ONCE IR Last administered on 09/06/16 16 :00; Start 09/06/16 at 16:00; Stop 09/06/16 at 17:48; Status DC Vancomycin HCl/ Sodium Chloride (Vancomycin Inj/ NS 250 ml Inj) 250 ml @ 250 mls/hr Q12H IV Last administered on 09/09/16 01:32; Start 09/07/16 at 12:00; Stop 09/09/16 at 15:15; Status DC Miscellaneous Information SPECIFIC LAB TO BE ... ONCE ONCE XX Last administered on 09/09/16 11:45; Start 09/09/16 at 11:45; Stop 09/09/16 at 11:46 ; Status DC Insulin Human Regular (NovoLIN R SUPPLEMENTAL SCALE) 1 ACHS SLIDING SCALE SQ Last administered on 09/15/16 23:12; Start 09/07/16 at 16:00 Prazosin HCl (Minipress) 2 mg HS PO Last administered on 09/15/16 21:34; Start 09/07/16 at 21:00 Quetiapine Fumarate (SEROquel) 200 mg HS PO Last administered on 09/15/16 21: 34; Start 09/07/16 at 21:00 Gabapentin (Neurontin) 400 mg BID@09,12 PO Last administered on 09/16/16 08:30 ; Start 09/08/16 at 09:00 Gabapentin (Neurontin) 800 mg HS PO Last administered on 09/15/16 21:34; Start 09/07/16 at 21:00 Insulin Detemir (Levemir Inj) 40 units DAILY SQ ; Start 09/08/16 at 09:00; Stop 09/08/16 at 10:45; Status DC Insulin Detemir 20 units 20 units HS SQ Last administered on 09/07/16 21:49; Start 09/07/16 at 21:00; Stop 09/08/16 at 10:49; Status DC Sodium Chloride (NS 1000 ml Inj) 1,000 ml @ 100 mls/hr Q10H IV Last administered on 09/15/16 03:00; Start 09/07/16 at 15:00; Status Hold Insulin Detemir (Levemir Inj) 10 units Q12HR SQ Last administered on 09/07/16 21:49; Start 09/07/16 at 21:00; Stop 09/08/16 at 10:49; Status DC Calcium Carbonate (Oscal) 500 mg Q12HR PO Last administered on 09/14/16 09:36 ; Start 09/07/16 at 21:00; Stop 09/14/16 at 20:59; Status DC Clindamycin HCl (Cleocin) 450 mg Q6HR PO Last administered on 09/10/16 11:29; Start 09/08/16 at 00:00; Stop 09/10/16 at 13:08; Status DC Bupivacaine HCl (Marcaine Pf 0.5% Inj) 30 ml STK-MED ONCE .ROUTE Last administered on 09/08/16 08:24; Start 09/08/16 at 07:12; Stop 09/08/16 at 07:13 ; Status DC Lidocaine HCl (Xylocaine 1% Inj (50 ml)) 50 ml STK-MED ONCE .ROUTE Last administered on 09/08/16 08:24; Start 09/08/16 at 07:13; Stop 09/08/16 at 07:14 ; Status DC Neomycin/Polymyxin (Neosporin G.u. Irr) 2 ml STK-MED ONCE IR Last administered on 09/08/16 07:18; Start 09/08/16 at 07:18; Stop 09/08/16 at 07:19; Status DC Midazolam HCl (Versed Inj) 2 mg STK-MED ONCE .ROUTE ; Start 09/08/16 at 07:56; Stop 09/08/16 at 07:57; Status DC Fentanyl Citrate (fentaNYL INJ) 250 mcg STK-MED ONCE .ROUTE ; Start 09/08/16 at 07:56; Stop 09/08/16 at 07:57; Status DC Acetaminophen (Ofirmev Inj) 1,000 mg STK-MED ONCE IV ; Start 09/08/16 at 07:56; Stop 09/08/16 at 07:57; Status DC Sugammadex Sodium (Bridion Inj) 200 mg STK-MED ONCE IV PUSH ; Start 09/08/16 at 07:57; Stop 09/08/16 at 07:58; Status DC IV Flush (NS Flush) 2 ml UNSCH PRN IVF FLUSH AFTER USING IV ACCESS; Start 09/08 at 09:00; Stop 09/08/16 at 09:06; Status DC IV Flush (NS Flush) 2 ml BID IVF ; Start 09/08/16 at 09:00; Stop 09/08/16 at 09: 06; Status DC Miscellaneous Information (Post-op Orders (for Pharmacy)) STAT ONCE XX ; Start 09/08/16 at 09:00; Stop 09/08/16 at 09:19; Status DC Hydromorphone HCl (*DILAUDID PF INJ PERIprocedural ONLY) 1 mg STK-MED ONCE .ROUTE Last administered on 09/08/16 09:00; Start 09/08/16 at 09:00; Stop at 09:01; Status DC Morphine Sulfate (Morphine Inj) 4 mg STK-MED ONCE .ROUTE ; Start 09/08/16 at 09: 01; Stop 09/08/16 at 09:02; Status DC Miscellaneous Information ALL NURSING DEPARTME... UNSCH PRN XX SEE LABEL COMMENTS; Start 09/08/16 at 08:55; Stop 09/09/16 at 08:54; Status DC Insulin Detemir (Levemir Inj) 20 units DAILYAC SQ ; Start 09/09/16 at 08:00; Stop 09/09/16 at 11:17; Status DC Insulin Detemir (Levemir Inj) 10 units HS SQ Last administered on 09/15/16 23: 14; Start 09/08/16 at 21:00 Hydromorphone HCl (Dilaudid) 4 mg Q4H PRN PO PAIN SCALE 6 TO 10 Last administered on 09/16/16 03:42; Start 09/08/16 at 14:00 Hydromorphone HCl (Dilaudid) 2 mg Q4H PRN PO pain3-5 Last administered on 08:31; Start 09/08/16 at 13:00 Insulin Detemir (Levemir Inj) 30 units DAILYAC SQ Last administered on 09:37; Start 09/10/16 at 08:00; Stop 09/15/16 at 09:29; Status DC Insulin Aspart 3 units 3 units TIDAC SQ Last administered on 09/13/16 17:54; Start 09/09/16 at 12:00; Status Hold Vancomycin HCl/ Sodium Chloride (Vancomycin Inj/ NS 500 ml Inj) 515 ml @ 257.5 mls/ hr Q12H IV ; Start 09/09/16 at 20:00; Stop 09/09/16 at 20:00; Status DC Miscellaneous Information SPECIFIC LAB TO BE DRAWN:VANCOMYCIN TROUGH DATE TO... ONCE ONCE XX ; Start 09/11/16 at 07:45; Stop 09/11/16 at 07:45; Status DC Fluconazole 200 mg 200 mg DAILY PO Last administered on 09/10/16 09:54; Start 09/09/16 at 18:00; Stop 09/10/16 at 13:07; Status DC Lactated Ringer's 1,000 ml @ 30 mls/hr Q24H IV Last administered on 09/11/16 07:30; Start 09/10/16 at 08:30 Sodium Chloride 500 ml @ 30 mls/hr [id number] IV ; Start 09/10/16 at 08:30; Stop 09/11/16 at 08:29; Status DC Dextrose/Sodium Chloride (D5W-NS 1000 ml Inj) 1,000 ml @ 60 mls/hr [id number] IV Last administered on 09/10/16 11:25; Start 09/10/16 at 11:15; Stop 09/11/16 at 03:54; Status DC Acetaminophen (Tylenol Supp) 325 mg Q4H PRN RECTAL fever >100.4 Last administered on 09/10/16 12:21; Start 09/10/16 at 12:00 Propofol (Diprivan 200 Mg/20 ml Inj) 200 mg STK-MED ONCE IV ; Start 09/06/16 at 12:00; Stop 09/10/16 at 12:53; Status DC Ondansetron HCl 4 mg 4 mg STK-MED ONCE IV PUSH ; Start 09/06/16 at 12:00; Stop 09/10/16 at 12:53; Status DC Lactated Ringer's 1,000 ml @ As Directed STK-MED ONCE IV ; Start 09/06/16 at 12 :00; Stop 09/10/16 at 12:53; Status DC Ceftriaxone Sodium 2000 mg/ Sodium Chloride 100 ml @ 200 mls/hr Q24H IV Last administered on 09/11/16 13:42; Start 09/10/16 at 14:00; Stop 09/12/16 at 08:20 ; Status DC Fluconazole/ Sodium Chloride (Diflucan 400 Mg Premix Bag) 200 ml @ 100 mls/hr Q24H IV Last administered on 09/15/16 15:28; Start 09/10/16 at 15:00 Propofol (Diprivan 200 Mg/20 ml Inj) 200 mg STK-MED ONCE IV ; Start 09/08/16 at 12:00; Stop 09/10/16 at 13:13; Status DC Ondansetron HCl 4 mg 4 mg STK-MED ONCE IV PUSH ; Start 09/08/16 at 12:00; Stop 09/10/16 at 13:13; Status DC Lactated Ringer's (Lr 1000 ml Inj) 1,000 ml @ As Directed STK-MED ONCE IV ; Start 09/08/16 at 12:00; Stop 09/10/16 at 13:13; Status DC Fentanyl Citrate (fentaNYL INJ) 250 mcg STK-MED ONCE .ROUTE ; Start 09/11/16 at 07:05; Stop 09/11/16 at 07:06; Status DC Midazolam HCl (Versed Inj) 2 mg STK-MED ONCE .ROUTE ; Start 09/11/16 at 07:16; Stop 09/11/16 at 07:17; Status DC Midazolam HCl (Versed Inj) 2 mg STK-MED ONCE .ROUTE ; Start 09/11/16 at 07:16; Stop 09/11/16 at 07:17; Status DC Bupivacaine HCl (Marcaine Pf 0.5% Inj) 30 ml STK-MED ONCE .ROUTE Last administered on 09/11/16 08:00; Start 09/11/16 at 07:33; Stop 09/11/16 at 07:34 ; Status DC Lidocaine HCl (Xylocaine-Mpf 2% Inj) 30 ml STK-MED ONCE .ROUTE Last administered on 09/11/16 08:00; Start 09/11/16 at 07:33; Stop 09/11/16 at 07:34 ; Status DC Hydromorphone HCl (*DILAUDID PF INJ PERIprocedural ONLY) 1 mg STK-MED ONCE .ROUTE Last administered on 09/11/16 08:58; Start 09/11/16 at 08:58; Stop at 08:59; Status DC Meperidine HCl (*DEMEROL INJ PERIprocedural ONLY) 25 mg STK-MED ONCE .ROUTE Last administered on 09/11/16 09:05; Start 09/11/16 at 09:05; Stop 09/11/16 at 09:06; Status DC Hydromorphone HCl (*DILAUDID PF INJ PERIprocedural ONLY) 1 mg STK-MED ONCE .ROUTE Last administered on 09/11/16 09:12; Start 09/11/16 at 09:12; Stop at 09:13; Status DC Miscellaneous Information ALL NURSING DEPARTME... UNSCH PRN XX SEE LABEL COMMENTS; Start 09/11/16 at 08:49; Stop 09/12/16 at 08:48; Status DC Hydroxyzine HCl (*VISTARIL INJ PERIprocedural ONLY) 25 mg STK-MED ONCE IM Last administered on 09/11/16 09:12; Start 09/11/16 at 09:12; Stop 09/11/16 at 09:13 ; Status DC Insulin Detemir (Levemir Inj) 20 units NOW ONCE SQ Last administered on 12:34; Start 09/11/16 at 11:15; Stop 09/11/16 at 11:16; Status DC Neomycin/Polymyxin (Neosporin G.u. Irr) 1 ml STK-MED ONCE IR Last administered on 09/11/16 08:00; Start 09/11/16 at 08:00; Stop 09/11/16 at 12:34; Status DC Hydromorphone HCl 1 mg 1 mg ONCE ONCE IV PUSH Last administered on 09/12/16 00:35; Start 09/12/16 at 00:00; Stop 09/12/16 at 00:03; Status DC Cefepime HCl 2000 mg/Sodium Chloride 100 ml @ 200 mls/hr Q8H IV Last administered on 09/16/16 08:32; Start 09/12/16 at 10:00 Pharmacy Profile Note 0 ml @ 0 mls/hr UNSCH OTHER ; Start 09/12/16 at 08:30 Vancomycin HCl/ Sodium Chloride (Vancomycin Inj/ NS 500 ml Inj) 515 ml @ 250 mls/hr Q12H IV Last administered on 09/15/16 23:10; Start 09/12/16 at 12:00 Miscellaneous Information SPECIFIC LAB TO BE DRAWN:VANCOMYCIN TROUGH DATE TO... ONCE ONCE XX ; Start 09/14/16 at 11:45; Stop 09/14/16 at 11:46; Status DC Propofol (Diprivan 200 Mg/20 ml Inj) 200 mg STK-MED ONCE IV ; Start 09/11/16 at 10:45; Stop 09/12/16 at 10:45; Status DC Neostigmine Methylsulfate (Prostigmin Inj) 3 mg STK-MED ONCE IV ; Start at 10:45; Stop 09/12/16 at 10:45; Status DC Ondansetron HCl (Zofran Inj) 4 mg STK-MED ONCE IV PUSH ; Start 09/11/16 at 10:45 ; Stop 09/12/16 at 10:45; Status DC Miscellaneous Information SPECIFIC LAB TO BE DRAWN:VANCOMYCIN TROUGH DATE TO... ONCE ONCE XX Last administered on 09/14/16 23:45; Start 09/14/16 at 23:45; Stop 09/14/16 at 23:46; Status DC Insulin Detemir (Levemir Inj) 26 units DAILYAC SQ Last administered on 08:31; Start 09/16/16 at 08:00 Acetaminophen (Tylenol) 650 mg Q4H PRN PO SEE LABEL COMMENTS Last administered on 09/16/16 03:35; Start 09/16/16 at 03:30; Stop 09/16/16 at 07:32; Status DC A/P Assessment and Plan A/p - Sepsis with Infected diabetic left foot gangrene/necrotizing fasciitis status post I&D- now with recurrent fever follow the repeated blood cultures- continue with Iv antibiotics- ID following. cleared by podiatry for discharge. - Acute increase in transaminitis>> questionable induced cefepime with Diflucan will monitor LFT's-abdominal sonogram pending. - Acute on chronic anemia-s/p PRBC transfusion- will monitor H/H -diabetes mellitus with hypoglycemic episode; decreased long-acting insulin and continue accu-check with SSI- hold novolog. - Chronic pain syndrome with neck surgery in the past; continue with pain control. - History of IV drug abuse in the past . Discharge Planning with recurrent fever. not ready for discharge today. Uzair Rodriguez MD Sep 16, 2016 11:28
[2016-09-16] MEDS: VANCOMYCIN INJ 1,500 MG in SODIUM CHLORID 0.9% 500 ML INJ 500 ML IV SCH ×2 (11:46→23:53)
[2016-09-16] MEDS: ACETAMINOPHEN 325 MG TAB PO PRN ×2 (11:47→19:58)
--- NOTE | 2016-09-16 12:05 | RADRPT ---
EXAM DATE/TIME: 09/16/2016 10:51 [facility] COMPARISON: No previous studies available for comparison. INDICATIONS : Increased lab values. MEDICAL HISTORY : Myocardial infarction. . Seizures. Neck pain. Renal disease. Arthritis. Diabetes. Post traum atic stress disorder. Gastroporesis. Blood transfusion. Anxiety. SURGICAL HISTORY : Cholecystectomy. Salpingectomy. Neck surgery. Back surgery. Right shoulder surgery. ENCOUNTER: Subsequent ACUITY: 1 day PAIN SCORE: 0/10 LOCATION: Bilateral upper quadrant MEASUREMENTS: LIVER: 21.6 cm length COMMON DUCT: 4 mm RIGHT KIDNEY: 12.8 x 3.9 x 5.6 cm SPLEEN: 12.7 cm length FINDINGS: LIVER: Normal echotexture without focal lesion or ductal dilatation. Minimal ascites. Hepatopedal flow. COMMON DUCT: No intraluminal mass or stone visualized. GALLBLADDER: Surgically absent. PANCREAS: The visualized portions are within normal limits. RIGHT KIDNEY: No hydronephrosis, stone or mass. SPLEEN: No focal lesion. CONCLUSION: 1. Liver is mildly enlarged. 2. Status post cholecystectomy. 3. Minimal ascites. Marcell Courtney MD on September 16, 2016 at 12:02 Board Certified Radiologist. This report was verified electronically.
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
[2016-09-16] MEDS: HEPARIN SODIUM - SQ 10,000 UNITS/ML VIAL SQ SCH ×2 (14:45→15:19)
[2016-09-16] MEDS: FLUCONAZOLE 400 MG PREMIX BAG 200 ML IV SCH (15:18)
[2016-09-16] MEDS: AZTREONAM INJ 2,000 MG in SODIUM CHLORIDE 0.9% INJ 100 ML IV SCH ×2 (17:32→23:53)
[2016-09-16] MEDS: PRAZOSIN HCL 2 MG CAP PO SCH (20:55)
[2016-09-16] MEDS: QUEtiapine FUMARATE 200 MG TAB PO SCH (20:55)
[2016-09-16 23:58] LABS: BLOOD, URINE TRACE (NEG); COMMENT (UR) CULT NOT INDICATED; CULTURE IF INDICATED CULT NOT INDICATED; GLUCOSE,URINE NEG (NEG); KETONE, URINE NEG (NEG); MUCUS URINE FEW /lpf (OCC); NITRITE,URINE NEG (NEG); PH, URINE 6.5 (5.0-8.5); URINE COLOR YELLOW (YELLW/STRAW)
[2016-09-17] VITALS (7 sets, daily range): BP systolic 110–146; BP diastolic 56–83; PULSE 82–97; RESP 16–18; TEMP 97–98.7; O2SAT 96–98
[2016-09-17] MEDS: HYDROmorphone HCL 4 MG TAB PO PRN ×6 (00:48→21:45)
[2016-09-17] MEDS: HEPARIN SODIUM - SQ 10,000 UNITS/ML VIAL SQ SCH ×2 (04:20→16:18)
[2016-09-17] MEDS: CARISOPRODOL 350 MG TAB PO PRN ×2 (04:25→11:18)
[2016-09-17] MEDS: ALPRAZolam 1 MG TAB PO PRN ×3 (04:25→21:45)
[2016-09-17] MEDS: AZTREONAM INJ 2,000 MG in SODIUM CHLORIDE 0.9% INJ 100 ML IV SCH ×2 (06:23→18:00)
[2016-09-17] MEDS: INSULIN NovoLIN REGULAR SUPPLEMENTAL SCALE SQ SCH ×4 (06:27→21:00)
[2016-09-17 08:14] LABS: AUTOMATED NEUTROPHIL # 9.6 TH/MM3 (1.8-7.7); BASOPHIL # 0.2 TH/MM3 (0-0.2); BASOPHIL % 1.3 % (0.0-2.0); EOSINOPHIL # 0.1 TH/MM3 (0-0.4); EOSINOPHIL % 1.2 % (0.0-4.0); HEMATOCRIT 22.2 % (35.0-46.0); HEMO FLAGS DIFF FINAL; LYMPH % 13.8 % (9.0-44.0); LYMPHOCYTE # 1.7 TH/MM3 (1.0-4.8); MEAN CELL VOLUME 85.2 FL (80.0-100.0); MEAN CORPUSCULAR HEMOGLOBIN 27.5 PG (27.0-34.0); MEAN CORPUSCULAR HGB CONC 32.3 % (32.0-36.0); MONO % 5.3 % (0.0-8.0); NEUT % 78.4 % (16.0-70.0); PLATELET COUNT 275 TH/MM3 (150-450); RED BLOOD COUNT 2.61 MIL/MM3 (4.00-5.30); RED CELL DISTRIBUTION WIDTH 17.4 % (11.6-17.2); WHITE BLOOD COUNT 12.2 TH/MM3 (4.0-11.0)
[2016-09-17] MEDS: carBAMazepine 200 MG TAB PO SCH ×2 (08:58→22:42)
[2016-09-17] MEDS: GABAPENTIN 400 MG CAP PO SCH ×3 (08:58→22:42)
[2016-09-17] MEDS: INSULIN DETEMIR 100 UNITS/ML VIAL SQ SCH ×2 (09:00→21:00)
[2016-09-17] MEDS: SODIUM CHLORIDE 0.9% FLUSH 5 ML FLUSH FLUSH SCH ×2 (09:00→22:43)
[2016-09-17] MEDS: VANCOMYCIN INJ 1,500 MG in SODIUM CHLORID 0.9% 500 ML INJ 500 ML IV SCH (11:18)
--- NOTE | 2016-09-17 11:45 | HHI.PR ---
Subjective Remarks looks better today. T max 102 last night. complaining of some pain to the left leg. Objective Vitals Vital Signs Date Time Temp Pulse Resp B/P Pulse Ox O2 Delivery O2 Flow Rate FiO2 09/17/16 08:15 97.9 83 16 123/64 96 09/17/16 04:59 98.7 94 17 110/56 96 09/17/16 00:16 97.0 92 17 146/64 96 09/16/16 23:00 87 09/16/16 20:44 102.2 109 17 148/67 97 09/16/16 18:42 99.1 09/16/16 15:58 98.8 98 17 118/56 93 09/16/16 11:50 101.1 125 17 136/75 94 I/O 09/16/16 09/16/16 09/16/16 09/17/16 09/17/16 09/17/16 07:00 15:00 23:00 07:00 15:00 23:00 Intake Total 360 ml 480 ml Balance 360 ml 480 ml Intake Oral 360 ml 480 ml # Voids 4 3 5 # Bowel Movements 1 2 2 Result Diagram: 09/17/16 0630 09/17/16 0630 Imaging Last Impressions Liver Ultrasound 09/16/16 0000 Signed Impressions: Service Date/Time: Friday, September 16, 2016 10:51 - CONCLUSION: 1. Liver is mildly enlarged. 2. Status post cholecystectomy. 3. Minimal ascites. Marcell Courtney MD Chest X-Ray 09/16/16 0000 Signed Impressions: Service Date/Time: Friday, September 16, 2016 05:38 - CONCLUSION: 1. Subsegmental atelectasis the left lung base. Right lung clear. Morales Rey MD Lower Extremity Ultrasound 09/12/16 0000 Signed Impressions: Service Date/Time: August 17:55 - CONCLUSION: Negative for DVT. Nonspecific left groin lymph nodes Francois Boothe MD Foot MRI 09/06/16 0000 Signed Impressions: Service Date/Time: Tuesday, September 06, 2016 11:35 - CONCLUSION: Significant abnormality on the medial side of the foot with abnormal signal in the tarsal navicular and first cuneiform. Gonzalo Sears MD FACR Foot X-Ray 09/05/16 0000 Signed Impressions: Service Date/Time: August 23:39 - CONCLUSION: 1. There is no evidence of acute fracture. 2. Soft tissue swelling is present with gas in the soft tissues. No plain film findings of osteomyelitis. If there is necessity for further evaluation contrast-enhanced MRI is recommended. Gaurav Parks MD Ankle X-Ray 09/05/16 0000 Signed Impressions: Service Date/Time: August 23:36 - CONCLUSION: 1. There is no evidence of acute fracture. Gaurav Parks MD Objective Remarks GENERAL: This is a well-nourished, well-developed patient, in no apparent distress. CARDIOVASCULAR: Regular rate and regular rhythm without murmurs, gallops, or rubs. RESPIRATORY: Clear to auscultation. Breath sounds equal bilaterally. No wheezes , rales, or rhonchi. GASTROINTESTINAL: Abdomen soft, non-tender, nondistended. Normal, active bowel sounds MUSCULOSKELETAL: left foot covered with clean dressing. NEURO: Alert & Oriented x4 to person, place, time, situation. Moves all ext x4 Procedures central line placement I/D left foot/ ankle with wound vac placement Medications and IVs Current Medications Sodium Chloride 1,000 ml @ 2,000 mls/hr Q30M ONCE IV Last administered on 09/05 23:55; Start 09/05/16 at 23:22; Stop 09/05/16 at 23:51; Status DC Sodium Chloride (NS 1000 ml Inj) 1,000 ml @ 2,000 mls/hr Q30M ONCE IV Last administered on 09/06/16 00:40; Start 09/05/16 at 23:52; Stop 09/06/16 at 00:21 ; Status DC IV Flush 2 ml 2 ml UNSCH PRN IVF FLUSH AFTER USING IV ACCESS; Start 09/05/16 at 23:30; Stop 09/06/16 at 02:17; Status DC Vancomycin HCl 1000 mg/Sodium Chloride 250 ml @ 250 mls/hr ONCE ONCE IV Last administered on 09/06/16 05:02; Start 09/05/16 at 23:30; Stop 09/06/16 at 00:29 ; Status DC Clindamycin Phosphate/Sodium Chloride (Cleocin Inj/NS Inj) 106 ml @ 212 mls/hr ONCE ONCE IV Last administered on 09/06/16 01:46; Start 09/06/16 at 00:45; Stop 09/06/16 at 01:14; Status DC Insulin Human Regular (NovoLIN R INJ) 7 units ONCE ONCE IV PUSH Last administered on 09/06/16 01:09; Start 09/06/16 at 00:45; Stop 09/06/16 at 00:46 ; Status DC Ondansetron HCl (Zofran Inj) 4 mg ONCE ONCE IV PUSH Last administered on 01:46; Start 09/06/16 at 01:45; Stop 09/06/16 at 01:46; Status DC Hydromorphone HCl 0.5 mg 0.5 mg ONCE ONCE IV PUSH Last administered on 01:46; Start 09/06/16 at 01:45; Stop 09/06/16 at 01:46; Status DC Piperacillin Sod/ Tazobactam Sod 50 ml @ 100 mls/hr ONCE ONCE IV Last administered on 09/06/16 02:27; Start 09/06/16 at 02:00; Stop 09/06/16 at 02:29 ; Status DC Sodium Chloride (NS 1000 ml Inj) 1,000 ml @ 999 mls/hr BOLUS ONCE IV Last administered on 09/06/16 02:17; Start 09/06/16 at 02:00; Stop 09/06/16 at 03:00 ; Status DC IV Flush (NS Flush) 2 ml BID IVF ; Start 09/06/16 at 09:00; Stop 09/06/16 at 09: 00; Status DC IV Flush (NS Flush) 2 ml UNSCH PRN IVF FLUSH AFTER USING IV ACCESS; Start 09/06 at 02:15; Stop 09/06/16 at 02:54; Status DC Hydromorphone HCl 0.5 mg 0.5 mg ONCE ONCE IV PUSH Last administered on 02:33; Start 09/06/16 at 02:30; Stop 09/06/16 at 02:31; Status DC Potassium Chloride/Dextrose/ Sod Cl 1,000 ml @ 125 mls/hr Q8H IV ; Start at 02:30; Stop 09/06/16 at 03:17; Status DC Sodium Chloride (NS 1000 ml Inj) 1,000 ml @ 100 mls/hr Q10H IV Last administered on 09/06/16 05:53; Start 09/06/16 at 02:45; Stop 09/06/16 at 10:19 ; Status DC IV Flush (NS Flush) 2 ml UNSCH PRN FLUSH FLUSH AFTER USING IV ACCESS Last administered on 09/06/16 10:05; Start 09/06/16 at 02:45 IV Flush (NS Flush) 2 ml BID FLUSH Last administered on 09/17/16 09:00; Start 09/06/16 at 09:00 Acetaminophen (Tylenol) 650 mg Q4H PRN PO TEMP > 100.4 Last administered on 19:58; Start 09/06/16 at 02:45 Ondansetron HCl (Zofran Inj) 4 mg Q6H PRN IVP NAUSEA OR VOMITING; Start at 02:45 Sennosides (Senokot) 17.2 mg Q12H PRN PO CONSTIPATION; Start 09/06/16 at 02:45 Heparin Sodium (Porcine) (Heparin Inj) 5,000 units Q12H SQ Last administered on 09/17/16 04:20; Start 09/06/16 at 02:45 Naloxone HCl 0.4 mg 0.4 mg UNSCH PRN IV SEE LABEL COMMENTS; Start 09/06/16 at 02:45 Pharmacy Profile Note 0 ml @ 0 mls/hr UNSCH OTHER ; Start 09/06/16 at 02:45; Stop 09/06/16 at 09:07; Status DC Piperacillin Sod/ Tazobactam Sod (Zosyn 3.375 Gm Premix) 50 ml @ 100 mls/hr Q6H IV Last administered on 09/10/16 09:54; Start 09/06/16 at 09:00; Stop at 13:07; Status DC Dextrose (D50w (Vial) Inj) 25 ml UNSCH PRN IV PUSH HYPOGLYCEMIA-SEE COMMENTS Last administered on 09/14/16 18:39; Start 09/06/16 at 02:45 Glucagon (Glucagon Inj) 1 mg UNSCH PRN OTHER HYPOGLYCEMIA-SEE COMMENTS Last administered on 09/06/16 10:42; Start 09/06/16 at 02:45 Insulin Aspart (NovoLOG SUPPLEMENTAL SCALE) 1 ACHS SLIDING SCALE SQ Last administered on 09/07/16 05:28; Start 09/06/16 at 07:00; Stop 09/07/16 at 13:17 ; Status DC Dextrose (D50w (Syr) Inj) 25 ml ONCE ONCE IV ; Start 09/06/16 at 03:45; Stop at 03:46; Status Cancel Dextrose 25 ml 25 ml ONCE ONCE IV Last administered on 09/06/16 03:54; Start 09/06/16 at 04:00; Stop 09/06/16 at 04:01; Status DC Vancomycin HCl/ Sodium Chloride (Vancomycin Inj/ NS 500 ml Inj) 515 ml @ 257.5 mls/ hr Q24H IV ; Start 09/06/16 at 22:00; Stop 09/07/16 at 11:00; Status DC Miscellaneous Information SPECIFIC LAB TO BE LEANDRO... ONCE ONCE XX ; Start at 21:45; Stop 09/08/16 at 21:46; Status Cancel Hydromorphone HCl 1 mg 1 mg ONCE ONCE IV PUSH Last administered on 09/06/16 05:07; Start 09/06/16 at 05:00; Stop 09/06/16 at 05:01; Status DC Pharmacy Profile Note (Vancomycin Consult Pharmacy) 0 ml @ 0 mls/hr UNSCH OTHER ; Start 09/06/16 at 09:15; Stop 09/09/16 at 17:49; Status DC Dextrose (D25w Inj) 10 ml ONCE ONCE IV PUSH ; Start 09/06/16 at 10:00; Stop at 10:03; Status DC Hydromorphone HCl 0.5 mg 0.5 mg Q4H PRN IV PUSH BREAKTHROUGH PAIN Last administered on 09/17/16 00:00; Start 09/06/16 at 10:00 Levofloxacin/ Dextrose (Levaquin 500 Mg Premix Inj) 100 ml @ 100 mls/hr Q24H IV Last administered on 09/07/16 10:00; Start 09/06/16 at 10:00; Stop at 23:49; Status DC Alprazolam (Xanax) 2 mg Q6H PRN PO ANXIETY Last administered on 09/17/16 11:18 ; Start 09/06/16 at 10:00 Carbamazepine (TEGretol) 200 mg BID PO Last administered on 09/17/16 08:58; Start 09/06/16 at 21:00 Carisoprodol (Soma) 350 mg QID PRN PO MUSCLE SPASM Last administered on 11:18; Start 09/06/16 at 10:00 Gabapentin (Neurontin) 600 mg Q12HR PO Last administered on 09/07/16 09:07; Start 09/06/16 at 21:00; Stop 09/07/16 at 14:06; Status DC Hydromorphone HCl (Dilaudid) 4 mg Q6H PRN PO PAIN SCALE 1 TO 10 Last administered on 09/08/16 10:12; Start 09/06/16 at 10:00; Stop 09/08/16 at 12:55 ; Status DC Prazosin HCl (Minipress) 1 mg DAILY PO ; Start 09/07/16 at 09:00; Stop 09/07/16 at 14:03; Status DC Promethazine HCl (Phenergan) 25 mg Q6H PRN PO Nausea/Vomiting Last administered on 09/10/16 12:53; Start 09/06/16 at 10:00 Quetiapine Fumarate (SEROquel) 200 mg DAILY PO ; Start 09/07/16 at 09:00; Stop 09/07/16 at 14:05; Status DC Ropinirole HCl 2 mg 2 mg HS PO Last administered on 09/16/16 20:55; Start at 21:00 Dextrose/Sodium Chloride 1,000 ml @ 100 mls/hr Q10H IV Last administered on 01:28; Start 09/06/16 at 10:19; Stop 09/07/16 at 14:22; Status DC Lactated Ringer's 1,000 ml @ 30 mls/hr Q24H IV ; Start 09/06/16 at 13:15; Stop 09/06/16 at 16:55; Status DC Sodium Chloride (NS 500 ml Inj) 500 ml @ 30 mls/hr [id number] IV ; Start 09/06/16 at 13:15; Stop 09/07/16 at 13:14; Status DC Insulin Human Regular (NovoLIN R INJ) See Protocol Table ... UNSCH X1 PRN SQ SEE PROTOCOL; Start 09/06/16 at 13:15; Stop 09/06/16 at 16:55; Status DC Metoprolol Tartrate (Lopressor) 25 mg UNSCH X1 PRN PO SEE LABEL COMMENTS; Start 09/06/16 at 13:15; Stop 09/06/16 at 16:55; Status DC Bupivacaine HCl (Marcaine Pf 0.25% Inj) 30 ml STK-MED ONCE .ROUTE ; Start at 13:12; Stop 09/06/16 at 13:13; Status DC Lidocaine HCl (Xylocaine 1% Inj (50 ml)) 50 ml STK-MED ONCE .ROUTE Last administered on 09/06/16 15:49; Start 09/06/16 at 13:12; Stop 09/06/16 at 13:13 ; Status DC Bupivacaine HCl (Marcaine Pf 0.5% Inj) 30 ml STK-MED ONCE .ROUTE Last administered on 09/06/16 15:49; Start 09/06/16 at 14:54; Stop 09/06/16 at 14:55 ; Status DC Midazolam HCl (Versed Inj) 4 mg STK-MED ONCE .ROUTE ; Start 09/06/16 at 15:48; Stop 09/06/16 at 15:49; Status DC Fentanyl Citrate (fentaNYL INJ) 250 mcg STK-MED ONCE .ROUTE ; Start 09/06/16 at 15:48; Stop 09/06/16 at 15:49; Status DC IV Flush (NS Flush) 2 ml UNSCH PRN IVF FLUSH AFTER USING IV ACCESS; Start 09/06 at 16:45; Stop 09/06/16 at 16:56; Status DC IV Flush (NS Flush) 2 ml BID IVF ; Start 09/06/16 at 21:00; Stop 09/06/16 at 21: 00; Status DC Miscellaneous Information (Post-op Orders (for Pharmacy)) STAT ONCE XX ; Start 09/06/16 at 16:45; Stop 09/06/16 at 16:54; Status DC Hydromorphone HCl (*DILAUDID PF INJ PERIprocedural ONLY) 1 mg STK-MED ONCE .ROUTE Last administered on 09/06/16 16:41; Start 09/06/16 at 16:41; Stop at 16:42; Status DC Hydromorphone HCl (*DILAUDID PF INJ PERIprocedural ONLY) 1 mg STK-MED ONCE .ROUTE Last administered on 09/06/16 16:48; Start 09/06/16 at 16:48; Stop at 16:49; Status DC Midazolam HCl (Versed Inj) 4 mg STK-MED ONCE .ROUTE ; Start 09/06/16 at 16:51; Stop 09/06/16 at 16:52; Status DC Fentanyl Citrate (fentaNYL INJ) 500 mcg STK-MED ONCE .ROUTE ; Start 09/06/16 at 16:51; Stop 09/06/16 at 16:52; Status DC Fentanyl Citrate (fentaNYL INJ) 200 mcg STK-MED ONCE .ROUTE ; Start 09/06/16 at 16:51; Stop 09/06/16 at 16:52; Status DC Morphine Sulfate (Morphine Inj) 8 mg STK-MED ONCE .ROUTE ; Start 09/06/16 at 16: 51; Stop 09/06/16 at 16:52; Status DC Hydroxyzine HCl (*VISTARIL INJ PERIprocedural ONLY) 25 mg STK-MED ONCE IM Last administered on 09/06/16 16:56; Start 09/06/16 at 16:56; Stop 09/06/16 at 16:57 ; Status DC Hydromorphone HCl (*DILAUDID PF INJ PERIprocedural ONLY) 1 mg STK-MED ONCE .ROUTE Last administered on 09/06/16 16:57; Start 09/06/16 at 16:57; Stop at 16:58; Status DC Neomycin/ Polymyxin 2 ml 2 ml STK-MED ONCE IR Last administered on 09/06/16 16 :00; Start 09/06/16 at 16:00; Stop 09/06/16 at 17:48; Status DC Vancomycin HCl/ Sodium Chloride (Vancomycin Inj/ NS 250 ml Inj) 250 ml @ 250 mls/hr Q12H IV Last administered on 09/09/16 01:32; Start 09/07/16 at 12:00; Stop 09/09/16 at 15:15; Status DC Miscellaneous Information SPECIFIC LAB TO BE LEANDRO... ONCE ONCE XX Last administered on 09/09/16 11:45; Start 09/09/16 at 11:45; Stop 09/09/16 at 11:46 ; Status DC Insulin Human Regular (NovoLIN R SUPPLEMENTAL SCALE) 1 ACHS SLIDING SCALE SQ Last administered on 09/16/16 20:57; Start 09/07/16 at 16:00 Prazosin HCl (Minipress) 2 mg HS PO Last administered on 09/16/16 20:55; Start 09/07/16 at 21:00 Quetiapine Fumarate (SEROquel) 200 mg HS PO Last administered on 09/16/16 20: 55; Start 09/07/16 at 21:00 Gabapentin (Neurontin) 400 mg BID@09,12 PO Last administered on 09/17/16 11:18 ; Start 09/08/16 at 09:00 Gabapentin (Neurontin) 800 mg HS PO Last administered on 09/16/16 20:55; Start 09/07/16 at 21:00 Insulin Detemir (Levemir Inj) 40 units DAILY SQ ; Start 09/08/16 at 09:00; Stop 09/08/16 at 10:45; Status DC Insulin Detemir 20 units 20 units HS SQ Last administered on 09/07/16 21:49; Start 09/07/16 at 21:00; Stop 09/08/16 at 10:49; Status DC Sodium Chloride (NS 1000 ml Inj) 1,000 ml @ 100 mls/hr Q10H IV Last administered on 09/15/16 03:00; Start 09/07/16 at 15:00; Status Hold Insulin Detemir (Levemir Inj) 10 units Q12HR SQ Last administered on 09/07/16 21:49; Start 09/07/16 at 21:00; Stop 09/08/16 at 10:49; Status DC Calcium Carbonate (Oscal) 500 mg Q12HR PO Last administered on 09/14/16 09:36 ; Start 09/07/16 at 21:00; Stop 09/14/16 at 20:59; Status DC Clindamycin HCl (Cleocin) 450 mg Q6HR PO Last administered on 09/10/16 11:29; Start 09/08/16 at 00:00; Stop 09/10/16 at 13:08; Status DC Bupivacaine HCl (Marcaine Pf 0.5% Inj) 30 ml STK-MED ONCE .ROUTE Last administered on 09/08/16 08:24; Start 09/08/16 at 07:12; Stop 09/08/16 at 07:13 ; Status DC Lidocaine HCl (Xylocaine 1% Inj (50 ml)) 50 ml STK-MED ONCE .ROUTE Last administered on 09/08/16 08:24; Start 09/08/16 at 07:13; Stop 09/08/16 at 07:14 ; Status DC Neomycin/Polymyxin (Neosporin G.u. Irr) 2 ml STK-MED ONCE IR Last administered on 09/08/16 07:18; Start 09/08/16 at 07:18; Stop 09/08/16 at 07:19; Status DC Midazolam HCl (Versed Inj) 2 mg STK-MED ONCE .ROUTE ; Start 09/08/16 at 07:56; Stop 09/08/16 at 07:57; Status DC Fentanyl Citrate (fentaNYL INJ) 250 mcg STK-MED ONCE .ROUTE ; Start 09/08/16 at 07:56; Stop 09/08/16 at 07:57; Status DC Acetaminophen (Ofirmev Inj) 1,000 mg STK-MED ONCE IV ; Start 09/08/16 at 07:56; Stop 09/08/16 at 07:57; Status DC Sugammadex Sodium (Bridion Inj) 200 mg STK-MED ONCE IV PUSH ; Start 09/08/16 at 07:57; Stop 09/08/16 at 07:58; Status DC IV Flush (NS Flush) 2 ml UNSCH PRN IVF FLUSH AFTER USING IV ACCESS; Start 09/08 at 09:00; Stop 09/08/16 at 09:06; Status DC IV Flush (NS Flush) 2 ml BID IVF ; Start 09/08/16 at 09:00; Stop 09/08/16 at 09: 06; Status DC Miscellaneous Information (Post-op Orders (for Pharmacy)) STAT ONCE XX ; Start 09/08/16 at 09:00; Stop 09/08/16 at 09:19; Status DC Hydromorphone HCl (*DILAUDID PF INJ PERIprocedural ONLY) 1 mg STK-MED ONCE .ROUTE Last administered on 09/08/16 09:00; Start 09/08/16 at 09:00; Stop at 09:01; Status DC Morphine Sulfate (Morphine Inj) 4 mg STK-MED ONCE .ROUTE ; Start 09/08/16 at 09: 01; Stop 09/08/16 at 09:02; Status DC Miscellaneous Information ALL NURSING DEPARTME... UNSCH PRN XX SEE LABEL COMMENTS; Start 09/08/16 at 08:55; Stop 09/09/16 at 08:54; Status DC Insulin Detemir (Levemir Inj) 20 units DAILYAC SQ ; Start 09/09/16 at 08:00; Stop 09/09/16 at 11:17; Status DC Insulin Detemir (Levemir Inj) 10 units HS SQ Last administered on 09/16/16 20: 57; Start 09/08/16 at 21:00 Hydromorphone HCl (Dilaudid) 4 mg Q4H PRN PO PAIN SCALE 6 TO 10 Last administered on 09/17/16 09:00; Start 09/08/16 at 14:00 Hydromorphone HCl (Dilaudid) 2 mg Q4H PRN PO pain3-5 Last administered on 20:58; Start 09/08/16 at 13:00 Insulin Detemir (Levemir Inj) 30 units DAILYAC SQ Last administered on 09:37; Start 09/10/16 at 08:00; Stop 09/15/16 at 09:29; Status DC Insulin Aspart 3 units 3 units TIDAC SQ Last administered on 09/13/16 17:54; Start 09/09/16 at 12:00; Status Hold Vancomycin HCl/ Sodium Chloride (Vancomycin Inj/ NS 500 ml Inj) 515 ml @ 257.5 mls/ hr Q12H IV ; Start 09/09/16 at 20:00; Stop 09/09/16 at 20:00; Status DC Miscellaneous Information SPECIFIC LAB TO BE DRAWN:VANCOMYCIN TROUGH DATE TO... ONCE ONCE XX ; Start 09/11/16 at 07:45; Stop 09/11/16 at 07:45; Status DC Fluconazole 200 mg 200 mg DAILY PO Last administered on 09/10/16 09:54; Start 09/09/16 at 18:00; Stop 09/10/16 at 13:07; Status DC Lactated Ringer's 1,000 ml @ 30 mls/hr Q24H IV Last administered on 09/11/16 07:30; Start 09/10/16 at 08:30 Sodium Chloride 500 ml @ 30 mls/hr [id number] IV ; Start 09/10/16 at 08:30; Stop 09/11/16 at 08:29; Status DC Dextrose/Sodium Chloride (D5W-NS 1000 ml Inj) 1,000 ml @ 60 mls/hr [id number] IV Last administered on 09/10/16 11:25; Start 09/10/16 at 11:15; Stop 09/11/16 at 03:54; Status DC Acetaminophen (Tylenol Supp) 325 mg Q4H PRN RECTAL fever >100.4 Last administered on 09/10/16 12:21; Start 09/10/16 at 12:00 Propofol (Diprivan 200 Mg/20 ml Inj) 200 mg STK-MED ONCE IV ; Start 09/06/16 at 12:00; Stop 09/10/16 at 12:53; Status DC Ondansetron HCl 4 mg 4 mg STK-MED ONCE IV PUSH ; Start 09/06/16 at 12:00; Stop 09/10/16 at 12:53; Status DC Lactated Ringer's 1,000 ml @ As Directed STK-MED ONCE IV ; Start 09/06/16 at 12 :00; Stop 09/10/16 at 12:53; Status DC Ceftriaxone Sodium 2000 mg/ Sodium Chloride 100 ml @ 200 mls/hr Q24H IV Last administered on 09/11/16 13:42; Start 09/10/16 at 14:00; Stop 09/12/16 at 08:20 ; Status DC Fluconazole/ Sodium Chloride (Diflucan 400 Mg Premix Bag) 200 ml @ 100 mls/hr Q24H IV Last administered on 09/16/16 15:18; Start 09/10/16 at 15:00 Propofol (Diprivan 200 Mg/20 ml Inj) 200 mg STK-MED ONCE IV ; Start 09/08/16 at 12:00; Stop 09/10/16 at 13:13; Status DC Ondansetron HCl 4 mg 4 mg STK-MED ONCE IV PUSH ; Start 09/08/16 at 12:00; Stop 09/10/16 at 13:13; Status DC Lactated Ringer's (Lr 1000 ml Inj) 1,000 ml @ As Directed STK-MED ONCE IV ; Start 09/08/16 at 12:00; Stop 09/10/16 at 13:13; Status DC Fentanyl Citrate (fentaNYL INJ) 250 mcg STK-MED ONCE .ROUTE ; Start 09/11/16 at 07:05; Stop 09/11/16 at 07:06; Status DC Midazolam HCl (Versed Inj) 2 mg STK-MED ONCE .ROUTE ; Start 09/11/16 at 07:16; Stop 09/11/16 at 07:17; Status DC Midazolam HCl (Versed Inj) 2 mg STK-MED ONCE .ROUTE ; Start 09/11/16 at 07:16; Stop 09/11/16 at 07:17; Status DC Bupivacaine HCl (Marcaine Pf 0.5% Inj) 30 ml STK-MED ONCE .ROUTE Last administered on 09/11/16 08:00; Start 09/11/16 at 07:33; Stop 09/11/16 at 07:34 ; Status DC Lidocaine HCl (Xylocaine-Mpf 2% Inj) 30 ml STK-MED ONCE .ROUTE Last administered on 09/11/16 08:00; Start 09/11/16 at 07:33; Stop 09/11/16 at 07:34 ; Status DC Hydromorphone HCl (*DILAUDID PF INJ PERIprocedural ONLY) 1 mg STK-MED ONCE .ROUTE Last administered on 09/11/16 08:58; Start 09/11/16 at 08:58; Stop at 08:59; Status DC Meperidine HCl (*DEMEROL INJ PERIprocedural ONLY) 25 mg STK-MED ONCE .ROUTE Last administered on 09/11/16 09:05; Start 09/11/16 at 09:05; Stop 09/11/16 at 09:06; Status DC Hydromorphone HCl (*DILAUDID PF INJ PERIprocedural ONLY) 1 mg STK-MED ONCE .ROUTE Last administered on 09/11/16 09:12; Start 09/11/16 at 09:12; Stop at 09:13; Status DC Miscellaneous Information ALL NURSING DEPARTME... UNSCH PRN XX SEE LABEL COMMENTS; Start 09/11/16 at 08:49; Stop 09/12/16 at 08:48; Status DC Hydroxyzine HCl (*VISTARIL INJ PERIprocedural ONLY) 25 mg STK-MED ONCE IM Last administered on 09/11/16 09:12; Start 09/11/16 at 09:12; Stop 09/11/16 at 09:13 ; Status DC Insulin Detemir (Levemir Inj) 20 units NOW ONCE SQ Last administered on 12:34; Start 09/11/16 at 11:15; Stop 09/11/16 at 11:16; Status DC Neomycin/Polymyxin (Neosporin G.u. Irr) 1 ml STK-MED ONCE IR Last administered on 09/11/16 08:00; Start 09/11/16 at 08:00; Stop 09/11/16 at 12:34; Status DC Hydromorphone HCl 1 mg 1 mg ONCE ONCE IV PUSH Last administered on 09/12/16 00:35; Start 09/12/16 at 00:00; Stop 09/12/16 at 00:03; Status DC Cefepime HCl 2000 mg/Sodium Chloride 100 ml @ 200 mls/hr Q8H IV Last administered on 09/16/16 08:32; Start 09/12/16 at 10:00; Stop 09/16/16 at 14:09 ; Status DC Pharmacy Profile Note 0 ml @ 0 mls/hr UNSCH OTHER ; Start 09/12/16 at 08:30 Vancomycin HCl/ Sodium Chloride (Vancomycin Inj/ NS 500 ml Inj) 515 ml @ 250 mls/hr Q12H IV Last administered on 09/17/16 11:18; Start 09/12/16 at 12:00 Miscellaneous Information SPECIFIC LAB TO BE DRAWN:VANCOMYCIN TROUGH DATE TO... ONCE ONCE XX ; Start 09/14/16 at 11:45; Stop 09/14/16 at 11:46; Status DC Propofol (Diprivan 200 Mg/20 ml Inj) 200 mg STK-MED ONCE IV ; Start 09/11/16 at 10:45; Stop 09/12/16 at 10:45; Status DC Neostigmine Methylsulfate (Prostigmin Inj) 3 mg STK-MED ONCE IV ; Start at 10:45; Stop 09/12/16 at 10:45; Status DC Ondansetron HCl (Zofran Inj) 4 mg STK-MED ONCE IV PUSH ; Start 09/11/16 at 10:45 ; Stop 09/12/16 at 10:45; Status DC Miscellaneous Information SPECIFIC LAB TO BE DRAWN:VANCOMYCIN TROUGH DATE TO... ONCE ONCE XX Last administered on 09/14/16 23:45; Start 09/14/16 at 23:45; Stop 09/14/16 at 23:46; Status DC Insulin Detemir (Levemir Inj) 26 units DAILYAC SQ Last administered on 09:00; Start 09/16/16 at 08:00 Acetaminophen 650 mg 650 mg Q4H PRN PO SEE LABEL COMMENTS Last administered on 09/16/16 03:35; Start 09/16/16 at 03:30; Stop 09/16/16 at 07:32; Status DC Aztreonam/Sodium Chloride (Azactam Inj/NS Inj) 100 ml @ 200 mls/hr Q8H IV Last administered on 09/17/16 06:23; Start 09/16/16 at 15:00 A/P Assessment and Plan A/p - Sepsis with Infected diabetic left foot gangrene/necrotizing fasciitis status post I&D- now with recurrent fever repeated blood cultures from 09/16 negative so far-- continue with Iv antibiotics- ID follow-up appreciated. cleared by podiatry for discharge. - Acute increase in transaminitis- will monitor LFT's-abdominal sonogram with mildly enlarged liver and minimal ascites. - Acute on chronic anemia-s/p PRBC transfusion- will monitor H/H -diabetes mellitus with hypoglycemic episode; decreased long-acting insulin and continue accu-check with SSI- hold AC novolog. - Chronic pain syndrome with neck surgery in the past; continue with pain control. - History of IV drug abuse in the past . Discharge Planning with recurrent fever. not ready for discharge today. Uzair Rodriguez MD Sep 17, 2016 11:45
[2016-09-17] MEDS ORDERED: WHEEMIS3 (12:57)
[2016-09-17] MEDS: FLUCONAZOLE 400 MG PREMIX BAG 200 ML IV SCH (16:19)
[2016-09-17] MEDS: HYDROmorphone HCL PF 1 MG/ML VIAL IV PUSH PRN ×2 (19:12)
--- NOTE | 2016-09-17 19:29 | HHI.PR ---
Addendum to Inpatient Note Addendum Reason: Additional Documentation Additional Information AFB in blood likely rapid grower AFB Repeat blood cultures Line from which culture drawn is DCed. DC Vanco IV DC Azactam IV Start Meropenem IV Start Cefoxitin IV Start Biaxin oral Above regimen for AFB in blood empiric regimen. Continue Diflucan. Will evaluate patient in am. Suspect abuse of CL in hospital. Given patients prior history of PICC line infections and non compliance. Will check Urine drug screen Move patient closer to nursing station and check belongings. Melisas Maldonado MD Sep 17, 2016 19:29
[2016-09-17] MEDS ORDERED: MISCELLANEOUS PHARMACY INFORMATION XX PRN (19:30)
[2016-09-17] MEDS ORDERED: ASP: Other exception documentation: ( ) XX PRN (19:30)
[2016-09-17] MEDS: CLARITHROMYCIN 250 MG TAB PO SCH (22:42)
[2016-09-17] MEDS: QUEtiapine FUMARATE 200 MG TAB PO SCH (22:42)
[2016-09-17] MEDS: PRAZOSIN HCL 2 MG CAP PO SCH (22:42)
[2016-09-17] MEDS: ceFOXitin INJ 2 GM in SODIUM CHLORIDE 0.9% INJ 100 ML IV SCH (22:43)
[2016-09-17] MEDS: MEROPENEM INJ 1,000 MG in SODIUM CHLORIDE 0.9% INJ 100 ML IV SCH (22:44)
[2016-09-18 00:08] VITALS: BP 103/55; PULSE 92; RESP 16; TEMP 98; O2SAT 98
[2016-09-18] MEDS: CARISOPRODOL 350 MG TAB PO PRN ×4 (00:21→21:25)
[2016-09-18] MEDS: HYDROmorphone HCL PF 1 MG/ML VIAL IV PUSH PRN ×2 (00:23→11:49)
[2016-09-18 01:10] LABS: AMPHETAMINE, URINE NEG (NEG); BARBITURATES, URINE NEG (NEG); COCAINE, URINE NEG (NEG)
[2016-09-18] MEDS: HEPARIN SODIUM - SQ 10,000 UNITS/ML VIAL SQ SCH ×2 (03:01→14:39)
[2016-09-18] MEDS: HYDROmorphone HCL 4 MG TAB PO PRN ×3 (03:02→17:43)
[2016-09-18] MEDS: ceFOXitin INJ 2 GM in SODIUM CHLORIDE 0.9% INJ 100 ML IV SCH ×4 (05:44→23:00)
[2016-09-18] MEDS: MEROPENEM INJ 1,000 MG in SODIUM CHLORIDE 0.9% INJ 100 ML IV SCH ×3 (05:44→22:00)
[2016-09-18 05:47] VITALS: BP 135/69; PULSE 100; RESP 17; TEMP 97.5; O2SAT 98
[2016-09-18] MEDS: INSULIN NovoLIN REGULAR SUPPLEMENTAL SCALE SQ SCH ×4 (07:00→21:26)
[2016-09-18] MEDS ORDERED: INSULIN DETEMIR 100 UNITS/ML VIAL SQ SCH (08:00)
[2016-09-18 08:11] VITALS: BP 139/73; PULSE 94; RESP 18; TEMP 98; O2SAT 94
[2016-09-18] MEDS: ALPRAZolam 1 MG TAB PO PRN ×3 (09:15→21:25)
[2016-09-18] MEDS: carBAMazepine 200 MG TAB PO SCH ×2 (09:15→21:25)
[2016-09-18] MEDS: CLARITHROMYCIN 250 MG TAB PO SCH ×2 (09:15→21:25)
[2016-09-18] MEDS: GABAPENTIN 400 MG CAP PO SCH ×3 (09:16→21:24)
[2016-09-18] MEDS: SODIUM CHLORIDE 0.9% FLUSH 5 ML FLUSH FLUSH SCH ×2 (09:17→21:00)
--- NOTE | 2016-09-18 11:23 | HHI.PR ---
Subjective Remarks in no distress. pain is controlled. no fever today. d/w the RN. Objective Vitals Vital Signs Date Time Temp Pulse Resp B/P Pulse Ox O2 Delivery O2 Flow Rate FiO2 09/18/16 08:11 98.0 94 18 139/73 94 09/18/16 05:47 97.5 100 17 135/69 98 09/18/16 00:08 98.0 92 16 103/55 98 09/17/16 20:19 98.2 97 16 127/83 97 09/17/16 18:44 86 09/17/16 16:19 97.3 92 16 127/63 98 09/17/16 12:34 98.3 82 18 130/70 96 I/O 09/17/16 09/17/16 09/17/16 09/18/16 09/18/16 09/18/16 07:00 15:00 23:00 07:00 15:00 23:00 Intake Total 480 ml 360 ml 240 ml 240 ml Balance 480 ml 360 ml 240 ml 240 ml Intake Oral 480 ml 360 ml 240 ml 240 ml # Voids 5 2 2 2 # Bowel Movements 2 0 1 1 Result Diagram: 09/17/16 0630 09/17/16 0630 Imaging Last Impressions Liver Ultrasound 09/16/16 0000 Signed Impressions: Service Date/Time: Friday, September 16, 2016 10:51 - CONCLUSION: 1. Liver is mildly enlarged. 2. Status post cholecystectomy. 3. Minimal ascites. Marcell Courtney MD Chest X-Ray 09/16/16 0000 Signed Impressions: Service Date/Time: Friday, September 16, 2016 05:38 - CONCLUSION: 1. Subsegmental atelectasis the left lung base. Right lung clear. Morales Rey MD Lower Extremity Ultrasound 09/12/16 0000 Signed Impressions: Service Date/Time: August 17:55 - CONCLUSION: Negative for DVT. Nonspecific left groin lymph nodes Francois Boothe MD Foot MRI 09/06/16 0000 Signed Impressions: Service Date/Time: Tuesday, September 06, 2016 11:35 - CONCLUSION: Significant abnormality on the medial side of the foot with abnormal signal in the tarsal navicular and first cuneiform. Gonzalo Sears MD FACR Foot X-Ray 09/05/16 0000 Signed Impressions: Service Date/Time: August 23:39 - CONCLUSION: 1. There is no evidence of acute fracture. 2. Soft tissue swelling is present with gas in the soft tissues. No plain film findings of osteomyelitis. If there is necessity for further evaluation contrast-enhanced MRI is recommended. Gaurav Parks MD Ankle X-Ray 09/05/16 0000 Signed Impressions: Service Date/Time: August 23:36 - CONCLUSION: 1. There is no evidence of acute fracture. Gaurav Parks MD Objective Remarks GENERAL: This is a well-nourished, well-developed patient, in no apparent distress. CARDIOVASCULAR: Regular rate and regular rhythm without murmurs, gallops, or rubs. RESPIRATORY: Clear to auscultation. Breath sounds equal bilaterally. No wheezes , rales, or rhonchi. GASTROINTESTINAL: Abdomen soft, non-tender, nondistended. Normal, active bowel sounds MUSCULOSKELETAL: left foot covered with clean dressing. NEURO: Alert & Oriented x4 to person, place, time, situation. Moves all ext x4 Procedures central line placement I/D left foot/ ankle with wound vac placement Medications and IVs Current Medications Sodium Chloride 1,000 ml @ 2,000 mls/hr Q30M ONCE IV Last administered on 09/05 23:55; Start 09/05/16 at 23:22; Stop 09/05/16 at 23:51; Status DC Sodium Chloride (NS 1000 ml Inj) 1,000 ml @ 2,000 mls/hr Q30M ONCE IV Last administered on 09/06/16 00:40; Start 09/05/16 at 23:52; Stop 09/06/16 at 00:21 ; Status DC IV Flush 2 ml 2 ml UNSCH PRN IVF FLUSH AFTER USING IV ACCESS; Start 09/05/16 at 23:30; Stop 09/06/16 at 02:17; Status DC Vancomycin HCl 1000 mg/Sodium Chloride 250 ml @ 250 mls/hr ONCE ONCE IV Last administered on 09/06/16 05:02; Start 09/05/16 at 23:30; Stop 09/06/16 at 00:29 ; Status DC Clindamycin Phosphate/Sodium Chloride (Cleocin Inj/NS Inj) 106 ml @ 212 mls/hr ONCE ONCE IV Last administered on 09/06/16 01:46; Start 09/06/16 at 00:45; Stop 09/06/16 at 01:14; Status DC Insulin Human Regular (NovoLIN R INJ) 7 units ONCE ONCE IV PUSH Last administered on 09/06/16 01:09; Start 09/06/16 at 00:45; Stop 09/06/16 at 00:46 ; Status DC Ondansetron HCl (Zofran Inj) 4 mg ONCE ONCE IV PUSH Last administered on 01:46; Start 09/06/16 at 01:45; Stop 09/06/16 at 01:46; Status DC Hydromorphone HCl 0.5 mg 0.5 mg ONCE ONCE IV PUSH Last administered on 01:46; Start 09/06/16 at 01:45; Stop 09/06/16 at 01:46; Status DC Piperacillin Sod/ Tazobactam Sod 50 ml @ 100 mls/hr ONCE ONCE IV Last administered on 09/06/16 02:27; Start 09/06/16 at 02:00; Stop 09/06/16 at 02:29 ; Status DC Sodium Chloride (NS 1000 ml Inj) 1,000 ml @ 999 mls/hr BOLUS ONCE IV Last administered on 09/06/16 02:17; Start 09/06/16 at 02:00; Stop 09/06/16 at 03:00 ; Status DC IV Flush (NS Flush) 2 ml BID IVF ; Start 09/06/16 at 09:00; Stop 09/06/16 at 09: 00; Status DC IV Flush (NS Flush) 2 ml UNSCH PRN IVF FLUSH AFTER USING IV ACCESS; Start 09/06 at 02:15; Stop 09/06/16 at 02:54; Status DC Hydromorphone HCl 0.5 mg 0.5 mg ONCE ONCE IV PUSH Last administered on 02:33; Start 09/06/16 at 02:30; Stop 09/06/16 at 02:31; Status DC Potassium Chloride/Dextrose/ Sod Cl 1,000 ml @ 125 mls/hr Q8H IV ; Start at 02:30; Stop 09/06/16 at 03:17; Status DC Sodium Chloride (NS 1000 ml Inj) 1,000 ml @ 100 mls/hr Q10H IV Last administered on 09/06/16 05:53; Start 09/06/16 at 02:45; Stop 09/06/16 at 10:19 ; Status DC IV Flush (NS Flush) 2 ml UNSCH PRN FLUSH FLUSH AFTER USING IV ACCESS Last administered on 09/06/16 10:05; Start 09/06/16 at 02:45 IV Flush (NS Flush) 2 ml BID FLUSH Last administered on 09/18/16 09:17; Start 09/06/16 at 09:00 Acetaminophen (Tylenol) 650 mg Q4H PRN PO TEMP > 100.4 Last administered on 19:58; Start 09/06/16 at 02:45 Ondansetron HCl (Zofran Inj) 4 mg Q6H PRN IVP NAUSEA OR VOMITING; Start at 02:45 Sennosides (Senokot) 17.2 mg Q12H PRN PO CONSTIPATION; Start 09/06/16 at 02:45 Heparin Sodium (Porcine) (Heparin Inj) 5,000 units Q12H SQ Last administered on 09/18/16 03:01; Start 09/06/16 at 02:45 Naloxone HCl 0.4 mg 0.4 mg UNSCH PRN IV SEE LABEL COMMENTS; Start 09/06/16 at 02:45 Pharmacy Profile Note 0 ml @ 0 mls/hr UNSCH OTHER ; Start 09/06/16 at 02:45; Stop 09/06/16 at 09:07; Status DC Piperacillin Sod/ Tazobactam Sod (Zosyn 3.375 Gm Premix) 50 ml @ 100 mls/hr Q6H IV Last administered on 09/10/16 09:54; Start 09/06/16 at 09:00; Stop at 13:07; Status DC Dextrose (D50w (Vial) Inj) 25 ml UNSCH PRN IV PUSH HYPOGLYCEMIA-SEE COMMENTS Last administered on 09/14/16 18:39; Start 09/06/16 at 02:45 Glucagon (Glucagon Inj) 1 mg UNSCH PRN OTHER HYPOGLYCEMIA-SEE COMMENTS Last administered on 09/06/16 10:42; Start 09/06/16 at 02:45 Insulin Aspart (NovoLOG SUPPLEMENTAL SCALE) 1 ACHS SLIDING SCALE SQ Last administered on 09/07/16 05:28; Start 09/06/16 at 07:00; Stop 09/07/16 at 13:17 ; Status DC Dextrose (D50w (Syr) Inj) 25 ml ONCE ONCE IV ; Start 09/06/16 at 03:45; Stop at 03:46; Status Cancel Dextrose 25 ml 25 ml ONCE ONCE IV Last administered on 09/06/16 03:54; Start 09/06/16 at 04:00; Stop 09/06/16 at 04:01; Status DC Vancomycin HCl/ Sodium Chloride (Vancomycin Inj/ NS 500 ml Inj) 515 ml @ 257.5 mls/ hr Q24H IV ; Start 09/06/16 at 22:00; Stop 09/07/16 at 11:00; Status DC Miscellaneous Information SPECIFIC LAB TO BE LEANDRO... ONCE ONCE XX ; Start at 21:45; Stop 09/08/16 at 21:46; Status Cancel Hydromorphone HCl 1 mg 1 mg ONCE ONCE IV PUSH Last administered on 09/06/16 05:07; Start 09/06/16 at 05:00; Stop 09/06/16 at 05:01; Status DC Pharmacy Profile Note (Vancomycin Consult Pharmacy) 0 ml @ 0 mls/hr UNSCH OTHER ; Start 09/06/16 at 09:15; Stop 09/09/16 at 17:49; Status DC Dextrose (D25w Inj) 10 ml ONCE ONCE IV PUSH ; Start 09/06/16 at 10:00; Stop at 10:03; Status DC Hydromorphone HCl 0.5 mg 0.5 mg Q4H PRN IV PUSH BREAKTHROUGH PAIN Last administered on 09/18/16 00:23; Start 09/06/16 at 10:00 Levofloxacin/ Dextrose (Levaquin 500 Mg Premix Inj) 100 ml @ 100 mls/hr Q24H IV Last administered on 09/07/16 10:00; Start 09/06/16 at 10:00; Stop at 23:49; Status DC Alprazolam (Xanax) 2 mg Q6H PRN PO ANXIETY Last administered on 09/18/16 09:15 ; Start 09/06/16 at 10:00 Carbamazepine (TEGretol) 200 mg BID PO Last administered on 09/18/16 09:15; Start 09/06/16 at 21:00 Carisoprodol (Soma) 350 mg QID PRN PO MUSCLE SPASM Last administered on 09:21; Start 09/06/16 at 10:00 Gabapentin (Neurontin) 600 mg Q12HR PO Last administered on 09/07/16 09:07; Start 09/06/16 at 21:00; Stop 09/07/16 at 14:06; Status DC Hydromorphone HCl (Dilaudid) 4 mg Q6H PRN PO PAIN SCALE 1 TO 10 Last administered on 09/08/16 10:12; Start 09/06/16 at 10:00; Stop 09/08/16 at 12:55 ; Status DC Prazosin HCl (Minipress) 1 mg DAILY PO ; Start 09/07/16 at 09:00; Stop 09/07/16 at 14:03; Status DC Promethazine HCl (Phenergan) 25 mg Q6H PRN PO Nausea/Vomiting Last administered on 09/10/16 12:53; Start 09/06/16 at 10:00 Quetiapine Fumarate (SEROquel) 200 mg DAILY PO ; Start 09/07/16 at 09:00; Stop 09/07/16 at 14:05; Status DC Ropinirole HCl 2 mg 2 mg HS PO Last administered on 09/17/16 22:42; Start at 21:00 Dextrose/Sodium Chloride 1,000 ml @ 100 mls/hr Q10H IV Last administered on 01:28; Start 09/06/16 at 10:19; Stop 09/07/16 at 14:22; Status DC Lactated Ringer's 1,000 ml @ 30 mls/hr Q24H IV ; Start 09/06/16 at 13:15; Stop 09/06/16 at 16:55; Status DC Sodium Chloride (NS 500 ml Inj) 500 ml @ 30 mls/hr [id number] IV ; Start 09/06/16 at 13:15; Stop 09/07/16 at 13:14; Status DC Insulin Human Regular (NovoLIN R INJ) See Protocol Table ... UNSCH X1 PRN SQ SEE PROTOCOL; Start 09/06/16 at 13:15; Stop 09/06/16 at 16:55; Status DC Metoprolol Tartrate (Lopressor) 25 mg UNSCH X1 PRN PO SEE LABEL COMMENTS; Start 09/06/16 at 13:15; Stop 09/06/16 at 16:55; Status DC Bupivacaine HCl (Marcaine Pf 0.25% Inj) 30 ml STK-MED ONCE .ROUTE ; Start at 13:12; Stop 09/06/16 at 13:13; Status DC Lidocaine HCl (Xylocaine 1% Inj (50 ml)) 50 ml STK-MED ONCE .ROUTE Last administered on 09/06/16 15:49; Start 09/06/16 at 13:12; Stop 09/06/16 at 13:13 ; Status DC Bupivacaine HCl (Marcaine Pf 0.5% Inj) 30 ml STK-MED ONCE .ROUTE Last administered on 09/06/16 15:49; Start 09/06/16 at 14:54; Stop 09/06/16 at 14:55 ; Status DC Midazolam HCl (Versed Inj) 4 mg STK-MED ONCE .ROUTE ; Start 09/06/16 at 15:48; Stop 09/06/16 at 15:49; Status DC Fentanyl Citrate (fentaNYL INJ) 250 mcg STK-MED ONCE .ROUTE ; Start 09/06/16 at 15:48; Stop 09/06/16 at 15:49; Status DC IV Flush (NS Flush) 2 ml UNSCH PRN IVF FLUSH AFTER USING IV ACCESS; Start 09/06 at 16:45; Stop 09/06/16 at 16:56; Status DC IV Flush (NS Flush) 2 ml BID IVF ; Start 09/06/16 at 21:00; Stop 09/06/16 at 21: 00; Status DC Miscellaneous Information (Post-op Orders (for Pharmacy)) STAT ONCE XX ; Start 09/06/16 at 16:45; Stop 09/06/16 at 16:54; Status DC Hydromorphone HCl (*DILAUDID PF INJ PERIprocedural ONLY) 1 mg STK-MED ONCE .ROUTE Last administered on 09/06/16 16:41; Start 09/06/16 at 16:41; Stop at 16:42; Status DC Hydromorphone HCl (*DILAUDID PF INJ PERIprocedural ONLY) 1 mg STK-MED ONCE .ROUTE Last administered on 09/06/16 16:48; Start 09/06/16 at 16:48; Stop at 16:49; Status DC Midazolam HCl (Versed Inj) 4 mg STK-MED ONCE .ROUTE ; Start 09/06/16 at 16:51; Stop 09/06/16 at 16:52; Status DC Fentanyl Citrate (fentaNYL INJ) 500 mcg STK-MED ONCE .ROUTE ; Start 09/06/16 at 16:51; Stop 09/06/16 at 16:52; Status DC Fentanyl Citrate (fentaNYL INJ) 200 mcg STK-MED ONCE .ROUTE ; Start 09/06/16 at 16:51; Stop 09/06/16 at 16:52; Status DC Morphine Sulfate (Morphine Inj) 8 mg STK-MED ONCE .ROUTE ; Start 09/06/16 at 16: 51; Stop 09/06/16 at 16:52; Status DC Hydroxyzine HCl (*VISTARIL INJ PERIprocedural ONLY) 25 mg STK-MED ONCE IM Last administered on 09/06/16 16:56; Start 09/06/16 at 16:56; Stop 09/06/16 at 16:57 ; Status DC Hydromorphone HCl (*DILAUDID PF INJ PERIprocedural ONLY) 1 mg STK-MED ONCE .ROUTE Last administered on 09/06/16 16:57; Start 09/06/16 at 16:57; Stop at 16:58; Status DC Neomycin/ Polymyxin 2 ml 2 ml STK-MED ONCE IR Last administered on 09/06/16 16 :00; Start 09/06/16 at 16:00; Stop 09/06/16 at 17:48; Status DC Vancomycin HCl/ Sodium Chloride (Vancomycin Inj/ NS 250 ml Inj) 250 ml @ 250 mls/hr Q12H IV Last administered on 09/09/16 01:32; Start 09/07/16 at 12:00; Stop 09/09/16 at 15:15; Status DC Miscellaneous Information SPECIFIC LAB TO BE ... ONCE ONCE XX Last administered on 09/09/16 11:45; Start 09/09/16 at 11:45; Stop 09/09/16 at 11:46 ; Status DC Insulin Human Regular (NovoLIN R SUPPLEMENTAL SCALE) 1 ACHS SLIDING SCALE SQ Last administered on 09/17/16 12:46; Start 09/07/16 at 16:00 Prazosin HCl (Minipress) 2 mg HS PO Last administered on 09/17/16 22:42; Start 09/07/16 at 21:00 Quetiapine Fumarate (SEROquel) 200 mg HS PO Last administered on 09/17/16 22: 42; Start 09/07/16 at 21:00 Gabapentin (Neurontin) 400 mg BID@09,12 PO Last administered on 09/18/16 09:16 ; Start 09/08/16 at 09:00 Gabapentin (Neurontin) 800 mg HS PO Last administered on 09/17/16 22:42; Start 09/07/16 at 21:00 Insulin Detemir (Levemir Inj) 40 units DAILY SQ ; Start 09/08/16 at 09:00; Stop 09/08/16 at 10:45; Status DC Insulin Detemir 20 units 20 units HS SQ Last administered on 09/07/16 21:49; Start 09/07/16 at 21:00; Stop 09/08/16 at 10:49; Status DC Sodium Chloride (NS 1000 ml Inj) 1,000 ml @ 100 mls/hr Q10H IV Last administered on 09/15/16 03:00; Start 09/07/16 at 15:00; Status Hold Insulin Detemir (Levemir Inj) 10 units Q12HR SQ Last administered on 09/07/16 21:49; Start 09/07/16 at 21:00; Stop 09/08/16 at 10:49; Status DC Calcium Carbonate (Oscal) 500 mg Q12HR PO Last administered on 09/14/16 09:36 ; Start 09/07/16 at 21:00; Stop 09/14/16 at 20:59; Status DC Clindamycin HCl (Cleocin) 450 mg Q6HR PO Last administered on 09/10/16 11:29; Start 09/08/16 at 00:00; Stop 09/10/16 at 13:08; Status DC Bupivacaine HCl (Marcaine Pf 0.5% Inj) 30 ml STK-MED ONCE .ROUTE Last administered on 09/08/16 08:24; Start 09/08/16 at 07:12; Stop 09/08/16 at 07:13 ; Status DC Lidocaine HCl (Xylocaine 1% Inj (50 ml)) 50 ml STK-MED ONCE .ROUTE Last administered on 09/08/16 08:24; Start 09/08/16 at 07:13; Stop 09/08/16 at 07:14 ; Status DC Neomycin/Polymyxin (Neosporin G.u. Irr) 2 ml STK-MED ONCE IR Last administered on 09/08/16 07:18; Start 09/08/16 at 07:18; Stop 09/08/16 at 07:19; Status DC Midazolam HCl (Versed Inj) 2 mg STK-MED ONCE .ROUTE ; Start 09/08/16 at 07:56; Stop 09/08/16 at 07:57; Status DC Fentanyl Citrate (fentaNYL INJ) 250 mcg STK-MED ONCE .ROUTE ; Start 09/08/16 at 07:56; Stop 09/08/16 at 07:57; Status DC Acetaminophen (Ofirmev Inj) 1,000 mg STK-MED ONCE IV ; Start 09/08/16 at 07:56; Stop 09/08/16 at 07:57; Status DC Sugammadex Sodium (Bridion Inj) 200 mg STK-MED ONCE IV PUSH ; Start 09/08/16 at 07:57; Stop 09/08/16 at 07:58; Status DC IV Flush (NS Flush) 2 ml UNSCH PRN IVF FLUSH AFTER USING IV ACCESS; Start 09/08 at 09:00; Stop 09/08/16 at 09:06; Status DC IV Flush (NS Flush) 2 ml BID IVF ; Start 09/08/16 at 09:00; Stop 09/08/16 at 09: 06; Status DC Miscellaneous Information (Post-op Orders (for Pharmacy)) STAT ONCE XX ; Start 09/08/16 at 09:00; Stop 09/08/16 at 09:19; Status DC Hydromorphone HCl (*DILAUDID PF INJ PERIprocedural ONLY) 1 mg STK-MED ONCE .ROUTE Last administered on 09/08/16 09:00; Start 09/08/16 at 09:00; Stop at 09:01; Status DC Morphine Sulfate (Morphine Inj) 4 mg STK-MED ONCE .ROUTE ; Start 09/08/16 at 09: 01; Stop 09/08/16 at 09:02; Status DC Miscellaneous Information ALL NURSING DEPARTME... UNSCH PRN XX SEE LABEL COMMENTS; Start 09/08/16 at 08:55; Stop 09/09/16 at 08:54; Status DC Insulin Detemir (Levemir Inj) 20 units DAILYAC SQ ; Start 09/09/16 at 08:00; Stop 09/09/16 at 11:17; Status DC Insulin Detemir (Levemir Inj) 10 units HS SQ Last administered on 09/16/16 20: 57; Start 09/08/16 at 21:00 Hydromorphone HCl (Dilaudid) 4 mg Q4H PRN PO PAIN SCALE 6 TO 10 Last administered on 09/18/16 08:18; Start 09/08/16 at 14:00 Hydromorphone HCl (Dilaudid) 2 mg Q4H PRN PO pain3-5 Last administered on 20:58; Start 09/08/16 at 13:00 Insulin Detemir (Levemir Inj) 30 units DAILYAC SQ Last administered on 09:37; Start 09/10/16 at 08:00; Stop 09/15/16 at 09:29; Status DC Insulin Aspart 3 units 3 units TIDAC SQ Last administered on 09/13/16 17:54; Start 09/09/16 at 12:00; Status Hold Vancomycin HCl/ Sodium Chloride (Vancomycin Inj/ NS 500 ml Inj) 515 ml @ 257.5 mls/ hr Q12H IV ; Start 09/09/16 at 20:00; Stop 09/09/16 at 20:00; Status DC Miscellaneous Information SPECIFIC LAB TO BE DRAWN:VANCOMYCIN TROUGH DATE TO... ONCE ONCE XX ; Start 09/11/16 at 07:45; Stop 09/11/16 at 07:45; Status DC Fluconazole 200 mg 200 mg DAILY PO Last administered on 09/10/16 09:54; Start 09/09/16 at 18:00; Stop 09/10/16 at 13:07; Status DC Lactated Ringer's 1,000 ml @ 30 mls/hr Q24H IV Last administered on 09/11/16 07:30; Start 09/10/16 at 08:30 Sodium Chloride 500 ml @ 30 mls/hr [id number] IV ; Start 09/10/16 at 08:30; Stop 09/11/16 at 08:29; Status DC Dextrose/Sodium Chloride (D5W-NS 1000 ml Inj) 1,000 ml @ 60 mls/hr [id number] IV Last administered on 09/10/16 11:25; Start 09/10/16 at 11:15; Stop 09/11/16 at 03:54; Status DC Acetaminophen (Tylenol Supp) 325 mg Q4H PRN RECTAL fever >100.4 Last administered on 09/10/16 12:21; Start 09/10/16 at 12:00 Propofol (Diprivan 200 Mg/20 ml Inj) 200 mg STK-MED ONCE IV ; Start 09/06/16 at 12:00; Stop 09/10/16 at 12:53; Status DC Ondansetron HCl 4 mg 4 mg STK-MED ONCE IV PUSH ; Start 09/06/16 at 12:00; Stop 09/10/16 at 12:53; Status DC Lactated Ringer's 1,000 ml @ As Directed STK-MED ONCE IV ; Start 09/06/16 at 12 :00; Stop 09/10/16 at 12:53; Status DC Ceftriaxone Sodium 2000 mg/ Sodium Chloride 100 ml @ 200 mls/hr Q24H IV Last administered on 09/11/16 13:42; Start 09/10/16 at 14:00; Stop 09/12/16 at 08:20 ; Status DC Fluconazole/ Sodium Chloride (Diflucan 400 Mg Premix Bag) 200 ml @ 100 mls/hr Q24H IV Last administered on 09/17/16 16:19; Start 09/10/16 at 15:00 Propofol (Diprivan 200 Mg/20 ml Inj) 200 mg STK-MED ONCE IV ; Start 09/08/16 at 12:00; Stop 09/10/16 at 13:13; Status DC Ondansetron HCl 4 mg 4 mg STK-MED ONCE IV PUSH ; Start 09/08/16 at 12:00; Stop 09/10/16 at 13:13; Status DC Lactated Ringer's (Lr 1000 ml Inj) 1,000 ml @ As Directed STK-MED ONCE IV ; Start 09/08/16 at 12:00; Stop 09/10/16 at 13:13; Status DC Fentanyl Citrate (fentaNYL INJ) 250 mcg STK-MED ONCE .ROUTE ; Start 09/11/16 at 07:05; Stop 09/11/16 at 07:06; Status DC Midazolam HCl (Versed Inj) 2 mg STK-MED ONCE .ROUTE ; Start 09/11/16 at 07:16; Stop 09/11/16 at 07:17; Status DC Midazolam HCl (Versed Inj) 2 mg STK-MED ONCE .ROUTE ; Start 09/11/16 at 07:16; Stop 09/11/16 at 07:17; Status DC Bupivacaine HCl (Marcaine Pf 0.5% Inj) 30 ml STK-MED ONCE .ROUTE Last administered on 09/11/16 08:00; Start 09/11/16 at 07:33; Stop 09/11/16 at 07:34 ; Status DC Lidocaine HCl (Xylocaine-Mpf 2% Inj) 30 ml STK-MED ONCE .ROUTE Last administered on 09/11/16 08:00; Start 09/11/16 at 07:33; Stop 09/11/16 at 07:34 ; Status DC Hydromorphone HCl (*DILAUDID PF INJ PERIprocedural ONLY) 1 mg STK-MED ONCE .ROUTE Last administered on 09/11/16 08:58; Start 09/11/16 at 08:58; Stop at 08:59; Status DC Meperidine HCl (*DEMEROL INJ PERIprocedural ONLY) 25 mg STK-MED ONCE .ROUTE Last administered on 09/11/16 09:05; Start 09/11/16 at 09:05; Stop 09/11/16 at 09:06; Status DC Hydromorphone HCl (*DILAUDID PF INJ PERIprocedural ONLY) 1 mg STK-MED ONCE .ROUTE Last administered on 09/11/16 09:12; Start 09/11/16 at 09:12; Stop at 09:13; Status DC Miscellaneous Information ALL NURSING DEPARTME... UNSCH PRN XX SEE LABEL COMMENTS; Start 09/11/16 at 08:49; Stop 09/12/16 at 08:48; Status DC Hydroxyzine HCl (*VISTARIL INJ PERIprocedural ONLY) 25 mg STK-MED ONCE IM Last administered on 09/11/16 09:12; Start 09/11/16 at 09:12; Stop 09/11/16 at 09:13 ; Status DC Insulin Detemir (Levemir Inj) 20 units NOW ONCE SQ Last administered on 12:34; Start 09/11/16 at 11:15; Stop 09/11/16 at 11:16; Status DC Neomycin/Polymyxin (Neosporin G.u. Irr) 1 ml STK-MED ONCE IR Last administered on 09/11/16 08:00; Start 09/11/16 at 08:00; Stop 09/11/16 at 12:34; Status DC Hydromorphone HCl 1 mg 1 mg ONCE ONCE IV PUSH Last administered on 09/12/16 00:35; Start 09/12/16 at 00:00; Stop 09/12/16 at 00:03; Status DC Cefepime HCl 2000 mg/Sodium Chloride 100 ml @ 200 mls/hr Q8H IV Last administered on 09/16/16 08:32; Start 09/12/16 at 10:00; Stop 09/16/16 at 14:09 ; Status DC Pharmacy Profile Note 0 ml @ 0 mls/hr UNSCH OTHER ; Start 09/12/16 at 08:30; Stop 09/17/16 at 19:26; Status DC Vancomycin HCl/ Sodium Chloride (Vancomycin Inj/ NS 500 ml Inj) 515 ml @ 250 mls/hr Q12H IV Last administered on 09/17/16 11:18; Start 09/12/16 at 12:00; Stop 09/17/16 at 19:26; Status DC Miscellaneous Information SPECIFIC LAB TO BE DRAWN:VANCOMYCIN TROUGH DATE TO... ONCE ONCE XX ; Start 09/14/16 at 11:45; Stop 09/14/16 at 11:46; Status DC Propofol (Diprivan 200 Mg/20 ml Inj) 200 mg STK-MED ONCE IV ; Start 09/11/16 at 10:45; Stop 09/12/16 at 10:45; Status DC Neostigmine Methylsulfate (Prostigmin Inj) 3 mg STK-MED ONCE IV ; Start at 10:45; Stop 09/12/16 at 10:45; Status DC Ondansetron HCl (Zofran Inj) 4 mg STK-MED ONCE IV PUSH ; Start 09/11/16 at 10:45 ; Stop 09/12/16 at 10:45; Status DC Miscellaneous Information SPECIFIC LAB TO BE DRAWN:VANCOMYCIN TROUGH DATE TO... ONCE ONCE XX Last administered on 09/14/16 23:45; Start 09/14/16 at 23:45; Stop 09/14/16 at 23:46; Status DC Insulin Detemir (Levemir Inj) 26 units DAILYAC SQ Last administered on 09:00; Start 09/16/16 at 08:00; Stop 09/17/16 at 11:47; Status DC Acetaminophen 650 mg 650 mg Q4H PRN PO SEE LABEL COMMENTS Last administered on 09/16/16 03:35; Start 09/16/16 at 03:30; Stop 09/16/16 at 07:32; Status DC Aztreonam/Sodium Chloride (Azactam Inj/NS Inj) 100 ml @ 200 mls/hr Q8H IV Last administered on 09/17/16 18:00; Start 09/16/16 at 15:00; Stop 09/17/16 at 19:27; Status DC Insulin Detemir (Levemir Inj) 24 units DAILYAC SQ ; Start 09/18/16 at 08:00 Miscellaneous Information SPECIFIC LAB TO BE DRAWN:VANCOMYCIN TROUGH DATE TO... ONCE ONCE XX ; Start 09/18/16 at 11:45; Stop 09/18/16 at 11:46; Status Cancel Cefoxitin Sodium/ Sodium Chloride (Mefoxin Inj/NS Inj) 100 ml @ 200 mls/hr Q6H IV Last administered on 09/18/16 05:44; Start 09/17/16 at 23:00 Clarithromycin (Biaxin) 250 mg Q12HR PO Last administered on 09/18/16 09:15; Start 09/17/16 at 21:00 Miscellaneous Medication (ASP Crit: Other exception documentation) 1 UNSCH X1 PRN XX PHARMACY DOCUMENTATION; Start 09/17/16 at 19:30; Stop 09/18/16 at 19:29 Miscellaneous Medication 1 1 UNSCH X1 PRN XX PHARMACY DOCUMENTATION; Start at 19:30; Stop 09/18/16 at 19:29 Meropenem/Sodium Chloride (Merrem Inj/NS Inj) 100 ml @ 200 mls/hr Q8H IV Last administered on 09/18/16t 05:44; Start 09/17/16 at 22:00 A/P Assessment and Plan A/p - Sepsis with Infected diabetic left foot gangrene/necrotizing fasciitis status post I&D- now with recurrent fever and positive blood culture for AFB Abx per ID; started on Meropenem, Cefoxitin, Biaxin and Diflucan repeated blood cultures pending. cleared by podiatry for discharge. - Acute increase in transaminitis- will monitor LFT's-abdominal sonogram with mildly enlarged liver and minimal ascites. - Acute on chronic anemia-s/p PRBC transfusion- will monitor H/H -diabetes mellitus with hypoglycemic episode;will further decrease long-acting insulin and continue accu-check with SSI- hold AC novolog. - Chronic pain syndrome with neck surgery in the past; continue with pain control. - History of IV drug abuse in the past . Discharge Planning not ready for discharge. Uzair Rodriguez MD Sep 18, 2016 11:23
[2016-09-18] MEDS ORDERED: PHARMACY ORDERED LAB XX ONE (11:45)
[2016-09-18 12:27] VITALS: BP 130/70; PULSE 87; RESP 18; TEMP 98.2; O2SAT 97
[2016-09-18] MEDS: HYDROmorphone HCL 2 MG TAB PO PRN ×2 (12:38→21:26)
[2016-09-18] MEDS: FLUCONAZOLE 400 MG PREMIX BAG 200 ML IV SCH (15:27)
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
[2016-09-18 16:13] VITALS: BP 162/80; PULSE 99; RESP 18; TEMP 98.1; O2SAT 97
[2016-09-18 20:00] VITALS: BP 153/70; PULSE 90; RESP 20; TEMP 98.7; O2SAT 93
[2016-09-18] MEDS: PRAZOSIN HCL 2 MG CAP PO SCH (21:00)
[2016-09-18] MEDS: INSULIN DETEMIR 100 UNITS/ML VIAL SQ SCH (21:25)
[2016-09-18] MEDS: QUEtiapine FUMARATE 200 MG TAB PO SCH (21:25)
[2016-09-19] VITALS: BP 136/67; PULSE 91; RESP 20; TEMP 99.8; O2SAT 94
[2016-09-19] MEDS: HYDROmorphone HCL 2 MG TAB PO PRN ×5 (01:41→20:46)
[2016-09-19] MEDS: HEPARIN SODIUM - SQ 10,000 UNITS/ML VIAL SQ SCH ×2 (01:42→16:04)
[2016-09-19 04:00] VITALS: BP 164/79; PULSE 90; RESP 20; TEMP 97.7; O2SAT 93
[2016-09-19] MEDS: ceFOXitin INJ 2 GM in SODIUM CHLORIDE 0.9% INJ 100 ML IV SCH ×4 (05:00→23:00)
[2016-09-19] MEDS: MEROPENEM INJ 1,000 MG in SODIUM CHLORIDE 0.9% INJ 100 ML IV SCH ×3 (06:00→22:00)
[2016-09-19] MEDS: CARISOPRODOL 350 MG TAB PO PRN ×2 (06:24→14:15)
[2016-09-19] MEDS: INSULIN NovoLIN REGULAR SUPPLEMENTAL SCALE SQ SCH ×3 (06:32→17:49)
[2016-09-19] MEDS: ALPRAZolam 1 MG TAB PO PRN ×3 (07:29→20:45)
[2016-09-19 07:35] VITALS: BP 143/77; PULSE 82; RESP 19; TEMP 96.9; O2SAT 97
[2016-09-19] MEDS: INSULIN DETEMIR 100 UNITS/ML VIAL SQ SCH ×2 (08:00→21:00)
[2016-09-19] MEDS: SODIUM CHLORIDE 0.9% FLUSH 5 ML FLUSH FLUSH SCH ×2 (09:00→21:00)
[2016-09-19] MEDS: carBAMazepine 200 MG TAB PO SCH ×2 (09:16→20:46)
[2016-09-19] MEDS: CLARITHROMYCIN 250 MG TAB PO SCH ×2 (09:16→20:46)
[2016-09-19] MEDS: GABAPENTIN 400 MG CAP PO SCH ×3 (09:16→20:46)
--- NOTE | 2016-09-19 11:14 | HHI.PR ---
Subjective Remarks in no acute distress. no fever this morning. pain is fairly controlled. no new complaints. Objective Vitals Vital Signs Date Time Temp Pulse Resp B/P Pulse Ox O2 Delivery O2 Flow Rate FiO2 09/19/16 07:35 96.9 82 19 143/77 97 09/19/16 04:00 97.7 90 20 164/79 93 09/19/16 00:00 99.8 91 20 136/67 94 09/18/16 20:00 98.7 90 20 153/70 93 09/18/16 16:13 98.1 99 18 162/80 97 09/18/16 12:27 98.2 87 18 130/70 97 I/O 09/18/16 09/18/16 09/18/16 09/19/16 09/19/16 09/19/16 07:00 15:00 23:00 07:00 15:00 23:00 Intake Total 240 ml 360 ml 240 ml Balance 240 ml 360 ml 240 ml Intake Oral 240 ml 360 ml 240 ml # Voids 2 2 0 1 # Bowel Movements 1 0 1 Result Diagram: 09/17/16 0630 09/19/16 0715 Imaging Last Impressions Liver Ultrasound 09/16/16 0000 Signed Impressions: Service Date/Time: Friday, September 16, 2016 10:51 - CONCLUSION: 1. Liver is mildly enlarged. 2. Status post cholecystectomy. 3. Minimal ascites. Marcell Courtney MD Chest X-Ray 09/16/16 0000 Signed Impressions: Service Date/Time: Friday, September 16, 2016 05:38 - CONCLUSION: 1. Subsegmental atelectasis the left lung base. Right lung clear. Morales Rey MD Lower Extremity Ultrasound 09/12/16 0000 Signed Impressions: Service Date/Time: August 17:55 - CONCLUSION: Negative for DVT. Nonspecific left groin lymph nodes Francois Boothe MD Foot MRI 09/06/16 0000 Signed Impressions: Service Date/Time: Tuesday, September 06, 2016 11:35 - CONCLUSION: Significant abnormality on the medial side of the foot with abnormal signal in the tarsal navicular and first cuneiform. Gonzalo Sears MD FACR Foot X-Ray 09/05/16 0000 Signed Impressions: Service Date/Time: August 23:39 - CONCLUSION: 1. There is no evidence of acute fracture. 2. Soft tissue swelling is present with gas in the soft tissues. No plain film findings of osteomyelitis. If there is necessity for further evaluation contrast-enhanced MRI is recommended. Gaurav Parks MD Ankle X-Ray 09/05/16 0000 Signed Impressions: Service Date/Time: August 23:36 - CONCLUSION: 1. There is no evidence of acute fracture. Gaurav Parks MD Objective Remarks GENERAL: This is a well-nourished, well-developed patient, in no apparent distress. CARDIOVASCULAR: Regular rate and regular rhythm without murmurs, gallops, or rubs. RESPIRATORY: Clear to auscultation. Breath sounds equal bilaterally. No wheezes , rales, or rhonchi. GASTROINTESTINAL: Abdomen soft, non-tender, nondistended. Normal, active bowel sounds MUSCULOSKELETAL: left foot covered with clean dressing. NEURO: Alert & Oriented x4 to person, place, time, situation. Moves all ext x4 Procedures central line placement I/D left foot/ ankle with wound vac placement Medications and IVs Current Medications Sodium Chloride 1,000 ml @ 2,000 mls/hr Q30M ONCE IV Last administered on 09/05 23:55; Start 09/05/16 at 23:22; Stop 09/05/16 at 23:51; Status DC Sodium Chloride (NS 1000 ml Inj) 1,000 ml @ 2,000 mls/hr Q30M ONCE IV Last administered on 09/06/16 00:40; Start 09/05/16 at 23:52; Stop 09/06/16 at 00:21 ; Status DC IV Flush 2 ml 2 ml UNSCH PRN IVF FLUSH AFTER USING IV ACCESS; Start 09/05/16 at 23:30; Stop 09/06/16 at 02:17; Status DC Vancomycin HCl 1000 mg/Sodium Chloride 250 ml @ 250 mls/hr ONCE ONCE IV Last administered on 09/06/16 05:02; Start 09/05/16 at 23:30; Stop 09/06/16 at 00:29 ; Status DC Clindamycin Phosphate/Sodium Chloride (Cleocin Inj/NS Inj) 106 ml @ 212 mls/hr ONCE ONCE IV Last administered on 09/06/16 01:46; Start 09/06/16 at 00:45; Stop 09/06/16 at 01:14; Status DC Insulin Human Regular (NovoLIN R INJ) 7 units ONCE ONCE IV PUSH Last administered on 09/06/16 01:09; Start 09/06/16 at 00:45; Stop 09/06/16 at 00:46 ; Status DC Ondansetron HCl (Zofran Inj) 4 mg ONCE ONCE IV PUSH Last administered on 01:46; Start 09/06/16 at 01:45; Stop 09/06/16 at 01:46; Status DC Hydromorphone HCl 0.5 mg 0.5 mg ONCE ONCE IV PUSH Last administered on 01:46; Start 09/06/16 at 01:45; Stop 09/06/16 at 01:46; Status DC Piperacillin Sod/ Tazobactam Sod 50 ml @ 100 mls/hr ONCE ONCE IV Last administered on 09/06/16 02:27; Start 09/06/16 at 02:00; Stop 09/06/16 at 02:29 ; Status DC Sodium Chloride (NS 1000 ml Inj) 1,000 ml @ 999 mls/hr BOLUS ONCE IV Last administered on 09/06/16 02:17; Start 09/06/16 at 02:00; Stop 09/06/16 at 03:00 ; Status DC IV Flush (NS Flush) 2 ml BID IVF ; Start 09/06/16 at 09:00; Stop 09/06/16 at 09: 00; Status DC IV Flush (NS Flush) 2 ml UNSCH PRN IVF FLUSH AFTER USING IV ACCESS; Start 09/06 at 02:15; Stop 09/06/16 at 02:54; Status DC Hydromorphone HCl 0.5 mg 0.5 mg ONCE ONCE IV PUSH Last administered on 02:33; Start 09/06/16 at 02:30; Stop 09/06/16 at 02:31; Status DC Potassium Chloride/Dextrose/ Sod Cl 1,000 ml @ 125 mls/hr Q8H IV ; Start at 02:30; Stop 09/06/16 at 03:17; Status DC Sodium Chloride (NS 1000 ml Inj) 1,000 ml @ 100 mls/hr Q10H IV Last administered on 09/06/16 05:53; Start 09/06/16 at 02:45; Stop 09/06/16 at 10:19 ; Status DC IV Flush (NS Flush) 2 ml UNSCH PRN FLUSH FLUSH AFTER USING IV ACCESS Last administered on 09/06/16 10:05; Start 09/06/16 at 02:45 IV Flush (NS Flush) 2 ml BID FLUSH Last administered on 09/19/16 09:00; Start 09/06/16 at 09:00 Acetaminophen (Tylenol) 650 mg Q4H PRN PO TEMP > 100.4 Last administered on 19:58; Start 09/06/16 at 02:45 Ondansetron HCl (Zofran Inj) 4 mg Q6H PRN IVP NAUSEA OR VOMITING; Start at 02:45 Sennosides (Senokot) 17.2 mg Q12H PRN PO CONSTIPATION; Start 09/06/16 at 02:45 Heparin Sodium (Porcine) (Heparin Inj) 5,000 units Q12H SQ Last administered on 09/19/16 01:42; Start 09/06/16 at 02:45 Naloxone HCl 0.4 mg 0.4 mg UNSCH PRN IV SEE LABEL COMMENTS; Start 09/06/16 at 02:45 Pharmacy Profile Note 0 ml @ 0 mls/hr UNSCH OTHER ; Start 09/06/16 at 02:45; Stop 09/06/16 at 09:07; Status DC Piperacillin Sod/ Tazobactam Sod (Zosyn 3.375 Gm Premix) 50 ml @ 100 mls/hr Q6H IV Last administered on 09/10/16 09:54; Start 09/06/16 at 09:00; Stop at 13:07; Status DC Dextrose (D50w (Vial) Inj) 25 ml UNSCH PRN IV PUSH HYPOGLYCEMIA-SEE COMMENTS Last administered on 09/14/16 18:39; Start 09/06/16 at 02:45 Glucagon (Glucagon Inj) 1 mg UNSCH PRN OTHER HYPOGLYCEMIA-SEE COMMENTS Last administered on 09/06/16 10:42; Start 09/06/16 at 02:45 Insulin Aspart (NovoLOG SUPPLEMENTAL SCALE) 1 ACHS SLIDING SCALE SQ Last administered on 09/07/16 05:28; Start 09/06/16 at 07:00; Stop 09/07/16 at 13:17 ; Status DC Dextrose (D50w (Syr) Inj) 25 ml ONCE ONCE IV ; Start 09/06/16 at 03:45; Stop at 03:46; Status Cancel Dextrose 25 ml 25 ml ONCE ONCE IV Last administered on 09/06/16 03:54; Start 09/06/16 at 04:00; Stop 09/06/16 at 04:01; Status DC Vancomycin HCl/ Sodium Chloride (Vancomycin Inj/ NS 500 ml Inj) 515 ml @ 257.5 mls/ hr Q24H IV ; Start 09/06/16 at 22:00; Stop 09/07/16 at 11:00; Status DC Miscellaneous Information SPECIFIC LAB TO BE LEANDRO... ONCE ONCE XX ; Start at 21:45; Stop 09/08/16 at 21:46; Status Cancel Hydromorphone HCl 1 mg 1 mg ONCE ONCE IV PUSH Last administered on 09/06/16 05:07; Start 09/06/16 at 05:00; Stop 09/06/16 at 05:01; Status DC Pharmacy Profile Note (Vancomycin Consult Pharmacy) 0 ml @ 0 mls/hr UNSCH OTHER ; Start 09/06/16 at 09:15; Stop 09/09/16 at 17:49; Status DC Dextrose (D25w Inj) 10 ml ONCE ONCE IV PUSH ; Start 09/06/16 at 10:00; Stop at 10:03; Status DC Hydromorphone HCl 0.5 mg 0.5 mg Q4H PRN IV PUSH BREAKTHROUGH PAIN Last administered on 09/18/16 11:49; Start 09/06/16 at 10:00 Levofloxacin/ Dextrose (Levaquin 500 Mg Premix Inj) 100 ml @ 100 mls/hr Q24H IV Last administered on 09/07/16 10:00; Start 09/06/16 at 10:00; Stop at 23:49; Status DC Alprazolam (Xanax) 2 mg Q6H PRN PO ANXIETY Last administered on 09/19/16 07:29 ; Start 09/06/16 at 10:00 Carbamazepine (TEGretol) 200 mg BID PO Last administered on 09/19/16 09:16; Start 09/06/16 at 21:00 Carisoprodol (Soma) 350 mg QID PRN PO MUSCLE SPASM Last administered on 06:24; Start 09/06/16 at 10:00 Gabapentin (Neurontin) 600 mg Q12HR PO Last administered on 09/07/16 09:07; Start 09/06/16 at 21:00; Stop 09/07/16 at 14:06; Status DC Hydromorphone HCl (Dilaudid) 4 mg Q6H PRN PO PAIN SCALE 1 TO 10 Last administered on 09/08/16 10:12; Start 09/06/16 at 10:00; Stop 09/08/16 at 12:55 ; Status DC Prazosin HCl (Minipress) 1 mg DAILY PO ; Start 09/07/16 at 09:00; Stop 09/07/16 at 14:03; Status DC Promethazine HCl (Phenergan) 25 mg Q6H PRN PO Nausea/Vomiting Last administered on 09/10/16 12:53; Start 09/06/16 at 10:00 Quetiapine Fumarate (SEROquel) 200 mg DAILY PO ; Start 09/07/16 at 09:00; Stop 09/07/16 at 14:05; Status DC Ropinirole HCl 2 mg 2 mg HS PO Last administered on 09/18/16 21:24; Start 09/06 at 21:00 Dextrose/Sodium Chloride 1,000 ml @ 100 mls/hr Q10H IV Last administered on 01:28; Start 09/06/16 at 10:19; Stop 09/07/16 at 14:22; Status DC Lactated Ringer's 1,000 ml @ 30 mls/hr Q24H IV ; Start 09/06/16 at 13:15; Stop 09/06/16 at 16:55; Status DC Sodium Chloride (NS 500 ml Inj) 500 ml @ 30 mls/hr [id number] IV ; Start 09/06/16 at 13:15; Stop 09/07/16 at 13:14; Status DC Insulin Human Regular (NovoLIN R INJ) See Protocol Table ... UNSCH X1 PRN SQ SEE PROTOCOL; Start 09/06/16 at 13:15; Stop 09/06/16 at 16:55; Status DC Metoprolol Tartrate (Lopressor) 25 mg UNSCH X1 PRN PO SEE LABEL COMMENTS; Start 09/06/16 at 13:15; Stop 09/06/16 at 16:55; Status DC Bupivacaine HCl (Marcaine Pf 0.25% Inj) 30 ml STK-MED ONCE .ROUTE ; Start at 13:12; Stop 09/06/16 at 13:13; Status DC Lidocaine HCl (Xylocaine 1% Inj (50 ml)) 50 ml STK-MED ONCE .ROUTE Last administered on 09/06/16 15:49; Start 09/06/16 at 13:12; Stop 09/06/16 at 13:13 ; Status DC Bupivacaine HCl (Marcaine Pf 0.5% Inj) 30 ml STK-MED ONCE .ROUTE Last administered on 09/06/16 15:49; Start 09/06/16 at 14:54; Stop 09/06/16 at 14:55 ; Status DC Midazolam HCl (Versed Inj) 4 mg STK-MED ONCE .ROUTE ; Start 09/06/16 at 15:48; Stop 09/06/16 at 15:49; Status DC Fentanyl Citrate (fentaNYL INJ) 250 mcg STK-MED ONCE .ROUTE ; Start 09/06/16 at 15:48; Stop 09/06/16 at 15:49; Status DC IV Flush (NS Flush) 2 ml UNSCH PRN IVF FLUSH AFTER USING IV ACCESS; Start 09/06 at 16:45; Stop 09/06/16 at 16:56; Status DC IV Flush (NS Flush) 2 ml BID IVF ; Start 09/06/16 at 21:00; Stop 09/06/16 at 21: 00; Status DC Miscellaneous Information (Post-op Orders (for Pharmacy)) STAT ONCE XX ; Start 09/06/16 at 16:45; Stop 09/06/16 at 16:54; Status DC Hydromorphone HCl (*DILAUDID PF INJ PERIprocedural ONLY) 1 mg STK-MED ONCE .ROUTE Last administered on 09/06/16 16:41; Start 09/06/16 at 16:41; Stop at 16:42; Status DC Hydromorphone HCl (*DILAUDID PF INJ PERIprocedural ONLY) 1 mg STK-MED ONCE .ROUTE Last administered on 09/06/16 16:48; Start 09/06/16 at 16:48; Stop at 16:49; Status DC Midazolam HCl (Versed Inj) 4 mg STK-MED ONCE .ROUTE ; Start 09/06/16 at 16:51; Stop 09/06/16 at 16:52; Status DC Fentanyl Citrate (fentaNYL INJ) 500 mcg STK-MED ONCE .ROUTE ; Start 09/06/16 at 16:51; Stop 09/06/16 at 16:52; Status DC Fentanyl Citrate (fentaNYL INJ) 200 mcg STK-MED ONCE .ROUTE ; Start 09/06/16 at 16:51; Stop 09/06/16 at 16:52; Status DC Morphine Sulfate (Morphine Inj) 8 mg STK-MED ONCE .ROUTE ; Start 09/06/16 at 16: 51; Stop 09/06/16 at 16:52; Status DC Hydroxyzine HCl (*VISTARIL INJ PERIprocedural ONLY) 25 mg STK-MED ONCE IM Last administered on 09/06/16 16:56; Start 09/06/16 at 16:56; Stop 09/06/16 at 16:57 ; Status DC Hydromorphone HCl (*DILAUDID PF INJ PERIprocedural ONLY) 1 mg STK-MED ONCE .ROUTE Last administered on 09/06/16 16:57; Start 09/06/16 at 16:57; Stop at 16:58; Status DC Neomycin/ Polymyxin 2 ml 2 ml STK-MED ONCE IR Last administered on 09/06/16 16 :00; Start 09/06/16 at 16:00; Stop 09/06/16 at 17:48; Status DC Vancomycin HCl/ Sodium Chloride (Vancomycin Inj/ NS 250 ml Inj) 250 ml @ 250 mls/hr Q12H IV Last administered on 09/09/16 01:32; Start 09/07/16 at 12:00; Stop 09/09/16 at 15:15; Status DC Miscellaneous Information SPECIFIC LAB TO BE LEANDRO... ONCE ONCE XX Last administered on 09/09/16 11:45; Start 09/09/16 at 11:45; Stop 09/09/16 at 11:46 ; Status DC Insulin Human Regular (NovoLIN R SUPPLEMENTAL SCALE) 1 ACHS SLIDING SCALE SQ Last administered on 09/18/16 21:26; Start 09/07/16 at 16:00 Prazosin HCl (Minipress) 2 mg HS PO Last administered on 09/18/16 21:00; Start 09/07/16 at 21:00 Quetiapine Fumarate (SEROquel) 200 mg HS PO Last administered on 09/18/16 21:25 ; Start 09/07/16 at 21:00 Gabapentin (Neurontin) 400 mg BID@09,12 PO Last administered on 09/19/16 09:16 ; Start 09/08/16 at 09:00 Gabapentin (Neurontin) 800 mg HS PO Last administered on 09/18/16 21:24; Start 09/07/16 at 21:00 Insulin Detemir (Levemir Inj) 40 units DAILY SQ ; Start 09/08/16 at 09:00; Stop 09/08/16 at 10:45; Status DC Insulin Detemir 20 units 20 units HS SQ Last administered on 09/07/16 21:49; Start 09/07/16 at 21:00; Stop 09/08/16 at 10:49; Status DC Sodium Chloride (NS 1000 ml Inj) 1,000 ml @ 100 mls/hr Q10H IV Last administered on 09/15/16 03:00; Start 09/07/16 at 15:00; Status Hold Insulin Detemir (Levemir Inj) 10 units Q12HR SQ Last administered on 09/07/16 21:49; Start 09/07/16 at 21:00; Stop 09/08/16 at 10:49; Status DC Calcium Carbonate (Oscal) 500 mg Q12HR PO Last administered on 09/14/16 09:36 ; Start 09/07/16 at 21:00; Stop 09/14/16 at 20:59; Status DC Clindamycin HCl (Cleocin) 450 mg Q6HR PO Last administered on 09/10/16 11:29; Start 09/08/16 at 00:00; Stop 09/10/16 at 13:08; Status DC Bupivacaine HCl (Marcaine Pf 0.5% Inj) 30 ml STK-MED ONCE .ROUTE Last administered on 09/08/16 08:24; Start 09/08/16 at 07:12; Stop 09/08/16 at 07:13 ; Status DC Lidocaine HCl (Xylocaine 1% Inj (50 ml)) 50 ml STK-MED ONCE .ROUTE Last administered on 09/08/16 08:24; Start 09/08/16 at 07:13; Stop 09/08/16 at 07:14 ; Status DC Neomycin/Polymyxin (Neosporin G.u. Irr) 2 ml STK-MED ONCE IR Last administered on 09/08/16 07:18; Start 09/08/16 at 07:18; Stop 09/08/16 at 07:19; Status DC Midazolam HCl (Versed Inj) 2 mg STK-MED ONCE .ROUTE ; Start 09/08/16 at 07:56; Stop 09/08/16 at 07:57; Status DC Fentanyl Citrate (fentaNYL INJ) 250 mcg STK-MED ONCE .ROUTE ; Start 09/08/16 at 07:56; Stop 09/08/16 at 07:57; Status DC Acetaminophen (Ofirmev Inj) 1,000 mg STK-MED ONCE IV ; Start 09/08/16 at 07:56; Stop 09/08/16 at 07:57; Status DC Sugammadex Sodium (Bridion Inj) 200 mg STK-MED ONCE IV PUSH ; Start 09/08/16 at 07:57; Stop 09/08/16 at 07:58; Status DC IV Flush (NS Flush) 2 ml UNSCH PRN IVF FLUSH AFTER USING IV ACCESS; Start 09/08 at 09:00; Stop 09/08/16 at 09:06; Status DC IV Flush (NS Flush) 2 ml BID IVF ; Start 09/08/16 at 09:00; Stop 09/08/16 at 09: 06; Status DC Miscellaneous Information (Post-op Orders (for Pharmacy)) STAT ONCE XX ; Start 09/08/16 at 09:00; Stop 09/08/16 at 09:19; Status DC Hydromorphone HCl (*DILAUDID PF INJ PERIprocedural ONLY) 1 mg STK-MED ONCE .ROUTE Last administered on 09/08/16 09:00; Start 09/08/16 at 09:00; Stop at 09:01; Status DC Morphine Sulfate (Morphine Inj) 4 mg STK-MED ONCE .ROUTE ; Start 09/08/16 at 09: 01; Stop 09/08/16 at 09:02; Status DC Miscellaneous Information ALL NURSING DEPARTME... UNSCH PRN XX SEE LABEL COMMENTS; Start 09/08/16 at 08:55; Stop 09/09/16 at 08:54; Status DC Insulin Detemir (Levemir Inj) 20 units DAILYAC SQ ; Start 09/09/16 at 08:00; Stop 09/09/16 at 11:17; Status DC Insulin Detemir (Levemir Inj) 10 units HS SQ Last administered on 09/18/16 21: 25; Start 09/08/16 at 21:00 Hydromorphone HCl (Dilaudid) 4 mg Q4H PRN PO PAIN SCALE 6 TO 10 Last administered on 09/18/16 17:43; Start 09/08/16 at 14:00 Hydromorphone HCl (Dilaudid) 2 mg Q4H PRN PO pain3-5 Last administered on 06:24; Start 09/08/16 at 13:00 Insulin Detemir (Levemir Inj) 30 units DAILYAC SQ Last administered on 09:37; Start 09/10/16 at 08:00; Stop 09/15/16 at 09:29; Status DC Insulin Aspart 3 units 3 units TIDAC SQ Last administered on 09/13/16 17:54; Start 09/09/16 at 12:00; Status Hold Vancomycin HCl/ Sodium Chloride (Vancomycin Inj/ NS 500 ml Inj) 515 ml @ 257.5 mls/ hr Q12H IV ; Start 09/09/16 at 20:00; Stop 09/09/16 at 20:00; Status DC Miscellaneous Information SPECIFIC LAB TO BE DRAWN:VANCOMYCIN TROUGH DATE TO... ONCE ONCE XX ; Start 09/11/16 at 07:45; Stop 09/11/16 at 07:45; Status DC Fluconazole 200 mg 200 mg DAILY PO Last administered on 09/10/16 09:54; Start 09/09/16 at 18:00; Stop 09/10/16 at 13:07; Status DC Lactated Ringer's 1,000 ml @ 30 mls/hr Q24H IV Last administered on 09/11/16 07:30; Start 09/10/16 at 08:30 Sodium Chloride 500 ml @ 30 mls/hr [id number] IV ; Start 09/10/16 at 08:30; Stop 09/11/16 at 08:29; Status DC Dextrose/Sodium Chloride (D5W-NS 1000 ml Inj) 1,000 ml @ 60 mls/hr [id number] IV Last administered on 09/10/16 11:25; Start 09/10/16 at 11:15; Stop 09/11/16 at 03:54; Status DC Acetaminophen (Tylenol Supp) 325 mg Q4H PRN RECTAL fever >100.4 Last administered on 09/10/16 12:21; Start 09/10/16 at 12:00 Propofol (Diprivan 200 Mg/20 ml Inj) 200 mg STK-MED ONCE IV ; Start 09/06/16 at 12:00; Stop 09/10/16 at 12:53; Status DC Ondansetron HCl 4 mg 4 mg STK-MED ONCE IV PUSH ; Start 09/06/16 at 12:00; Stop 09/10/16 at 12:53; Status DC Lactated Ringer's 1,000 ml @ As Directed STK-MED ONCE IV ; Start 09/06/16 at 12 :00; Stop 09/10/16 at 12:53; Status DC Ceftriaxone Sodium 2000 mg/ Sodium Chloride 100 ml @ 200 mls/hr Q24H IV Last administered on 09/11/16 13:42; Start 09/10/16 at 14:00; Stop 09/12/16 at 08:20 ; Status DC Fluconazole/ Sodium Chloride (Diflucan 400 Mg Premix Bag) 200 ml @ 100 mls/hr Q24H IV Last administered on 09/18/16 15:27; Start 09/10/16 at 15:00 Propofol (Diprivan 200 Mg/20 ml Inj) 200 mg STK-MED ONCE IV ; Start 09/08/16 at 12:00; Stop 09/10/16 at 13:13; Status DC Ondansetron HCl 4 mg 4 mg STK-MED ONCE IV PUSH ; Start 09/08/16 at 12:00; Stop 09/10/16 at 13:13; Status DC Lactated Ringer's (Lr 1000 ml Inj) 1,000 ml @ As Directed STK-MED ONCE IV ; Start 09/08/16 at 12:00; Stop 09/10/16 at 13:13; Status DC Fentanyl Citrate (fentaNYL INJ) 250 mcg STK-MED ONCE .ROUTE ; Start 09/11/16 at 07:05; Stop 09/11/16 at 07:06; Status DC Midazolam HCl (Versed Inj) 2 mg STK-MED ONCE .ROUTE ; Start 09/11/16 at 07:16; Stop 09/11/16 at 07:17; Status DC Midazolam HCl (Versed Inj) 2 mg STK-MED ONCE .ROUTE ; Start 09/11/16 at 07:16; Stop 09/11/16 at 07:17; Status DC Bupivacaine HCl (Marcaine Pf 0.5% Inj) 30 ml STK-MED ONCE .ROUTE Last administered on 09/11/16 08:00; Start 09/11/16 at 07:33; Stop 09/11/16 at 07:34 ; Status DC Lidocaine HCl (Xylocaine-Mpf 2% Inj) 30 ml STK-MED ONCE .ROUTE Last administered on 09/11/16 08:00; Start 09/11/16 at 07:33; Stop 09/11/16 at 07:34 ; Status DC Hydromorphone HCl (*DILAUDID PF INJ PERIprocedural ONLY) 1 mg STK-MED ONCE .ROUTE Last administered on 09/11/16 08:58; Start 09/11/16 at 08:58; Stop at 08:59; Status DC Meperidine HCl (*DEMEROL INJ PERIprocedural ONLY) 25 mg STK-MED ONCE .ROUTE Last administered on 09/11/16 09:05; Start 09/11/16 at 09:05; Stop 09/11/16 at 09:06; Status DC Hydromorphone HCl (*DILAUDID PF INJ PERIprocedural ONLY) 1 mg STK-MED ONCE .ROUTE Last administered on 09/11/16 09:12; Start 09/11/16 at 09:12; Stop at 09:13; Status DC Miscellaneous Information ALL NURSING DEPARTME... UNSCH PRN XX SEE LABEL COMMENTS; Start 09/11/16 at 08:49; Stop 09/12/16 at 08:48; Status DC Hydroxyzine HCl (*VISTARIL INJ PERIprocedural ONLY) 25 mg STK-MED ONCE IM Last administered on 09/11/16 09:12; Start 09/11/16 at 09:12; Stop 09/11/16 at 09:13 ; Status DC Insulin Detemir (Levemir Inj) 20 units NOW ONCE SQ Last administered on 12:34; Start 09/11/16 at 11:15; Stop 09/11/16 at 11:16; Status DC Neomycin/Polymyxin (Neosporin G.u. Irr) 1 ml STK-MED ONCE IR Last administered on 09/11/16 08:00; Start 09/11/16 at 08:00; Stop 09/11/16 at 12:34; Status DC Hydromorphone HCl 1 mg 1 mg ONCE ONCE IV PUSH Last administered on 09/12/16 00:35; Start 09/12/16 at 00:00; Stop 09/12/16 at 00:03; Status DC Cefepime HCl 2000 mg/Sodium Chloride 100 ml @ 200 mls/hr Q8H IV Last administered on 09/16/16 08:32; Start 09/12/16 at 10:00; Stop 09/16/16 at 14:09 ; Status DC Pharmacy Profile Note 0 ml @ 0 mls/hr UNSCH OTHER ; Start 09/12/16 at 08:30; Stop 09/17/16 at 19:26; Status DC Vancomycin HCl/ Sodium Chloride (Vancomycin Inj/ NS 500 ml Inj) 515 ml @ 250 mls/hr Q12H IV Last administered on 09/17/16 11:18; Start 09/12/16 at 12:00; Stop 09/17/16 at 19:26; Status DC Miscellaneous Information SPECIFIC LAB TO BE DRAWN:VANCOMYCIN TROUGH DATE TO... ONCE ONCE XX ; Start 09/14/16 at 11:45; Stop 09/14/16 at 11:46; Status DC Propofol (Diprivan 200 Mg/20 ml Inj) 200 mg STK-MED ONCE IV ; Start 09/11/16 at 10:45; Stop 09/12/16 at 10:45; Status DC Neostigmine Methylsulfate (Prostigmin Inj) 3 mg STK-MED ONCE IV ; Start at 10:45; Stop 09/12/16 at 10:45; Status DC Ondansetron HCl (Zofran Inj) 4 mg STK-MED ONCE IV PUSH ; Start 09/11/16 at 10:45 ; Stop 09/12/16 at 10:45; Status DC Miscellaneous Information SPECIFIC LAB TO BE DRAWN:VANCOMYCIN TROUGH DATE TO... ONCE ONCE XX Last administered on 09/14/16 23:45; Start 09/14/16 at 23:45; Stop 09/14/16 at 23:46; Status DC Insulin Detemir (Levemir Inj) 26 units DAILYAC SQ Last administered on 09:00; Start 09/16/16 at 08:00; Stop 09/17/16 at 11:47; Status DC Acetaminophen 650 mg 650 mg Q4H PRN PO SEE LABEL COMMENTS Last administered on 09/16/16 03:35; Start 09/16/16 at 03:30; Stop 09/16/16 at 07:32; Status DC Aztreonam/Sodium Chloride (Azactam Inj/NS Inj) 100 ml @ 200 mls/hr Q8H IV Last administered on 09/17/16 18:00; Start 09/16/16 at 15:00; Stop 09/17/16 at 19:27; Status DC Insulin Detemir (Levemir Inj) 24 units DAILYAC SQ ; Start 09/18/16 at 08:00; Stop 09/18/16 at 11:24; Status DC Miscellaneous Information SPECIFIC LAB TO BE DRAWN:VANCOMYCIN TROUGH DATE TO... ONCE ONCE XX ; Start 09/18/16 at 11:45; Stop 09/18/16 at 11:46; Status Cancel Cefoxitin Sodium/ Sodium Chloride (Mefoxin Inj/NS Inj) 100 ml @ 200 mls/hr Q6H IV Last administered on 09/18/16 17:43; Start 09/17/16 at 23:00 Clarithromycin (Biaxin) 250 mg Q12HR PO Last administered on 3/2/17at 09:16; Start 09/17/16 at 21:00 Miscellaneous Medication (ASP Crit: Other exception documentation) 1 UNSCH X1 PRN XX PHARMACY DOCUMENTATION; Start 09/17/16 at 19:30; Stop 09/18/16 at 19:29; Status DC Miscellaneous Medication 1 1 UNSCH X1 PRN XX PHARMACY DOCUMENTATION; Start at 19:30; Stop 09/18/16 at 19:29; Status DC Meropenem/Sodium Chloride (Merrem Inj/NS Inj) 100 ml @ 200 mls/hr Q8H IV Last administered on 09/18/16t 14:39; Start 09/17/16 at 22:00 Insulin Detemir (Levemir Inj) 20 units DAILYAC SQ ; Start 09/19/16 at 08:00 A/P Assessment and Plan A/p - Sepsis with Infected diabetic left foot gangrene/necrotizing fasciitis status post I&D- now with recurrent fever and positive blood culture for AFB Abx per ID; started on Meropenem, Cefoxitin, Biaxin and Diflucan repeated blood cultures pending. cleared by podiatry for discharge. - Acute increase in transaminitis- will monitor LFT's-abdominal sonogram with mildly enlarged liver and minimal ascites. - Acute on chronic anemia-s/p PRBC transfusion- will monitor H/H -diabetes mellitus with hypoglycemic episode with no further recurrence; continue long-acting insulin and continue accu-check with SSI- continue to hold AC novolog. - Chronic pain syndrome with neck surgery in the past; continue with pain control. - History of IV drug abuse in the past . Discharge Planning not ready for discharge. Uzair Rodriguez MD Sep 19, 2016 11:14
[2016-09-19 11:30] VITALS: BP 146/81; PULSE 118; RESP 19; TEMP 96.3; O2SAT 100
[2016-09-19 15:24] VITALS: BP 111/55; PULSE 104; RESP 19; TEMP 99.2; O2SAT 96
[2016-09-19] MEDS: FLUCONAZOLE 400 MG PREMIX BAG 200 ML IV SCH (16:04)
--- NOTE | 2016-09-19 17:34 | PD.POD ---
Subjective Podiatric Problems s/p I&D and wound debridements x [address] Santoro and Pam. Patient complains only of pain and wanting to go home. She states she accidentally pulled the VAC off last night while going to bathroom, but her nurse fixed it. She denies any n/v/f/h/c/sob Pain scale used: 0-10 numeric scale Pain score: 6 Past Med/Surg/Social History Social History Smoking Status: Never Smoker Objective Vital Signs Vital Signs Date Time Temp Pulse Resp B/P Pulse Ox O2 Delivery O2 Flow Rate FiO2 09/19/16 15:24 99.2 104 19 111/55 96 09/19/16 11:30 96.3 118 19 146/81 100 09/19/16 07:35 96.9 82 19 143/77 97 09/19/16 04:00 97.7 90 20 164/79 93 09/19/16 00:00 99.8 91 20 136/67 94 09/18/16 20:00 98.7 90 20 153/70 93 Coded Allergies: Toradol (Verified Allergy, Severe, Anaphylaxis, 09/05/16) Exam-Podiatry Remarks Left medial foot/ankle wound approximately 10cm x 6cm x0 , fibro granular base with exposed tendon. No erythema, no drainage, no malodor . No changes to vascular, neuro, or biomechanical. Assessment & Plan A/P 1)Left leg ulcer, s/p debridement and I&D x 2 -Wound VAC m/w/f -Home VAC already arranged -ok to d/c from podiatry standpoint, pt is aware she is waiting to resolve the blood infection before d/c -follow up with one week after d/c Emily Helm DPM Sep 19, 2016 17:34
[2016-09-19] MEDS: HYDROmorphone HCL PF 1 MG/ML VIAL IV PUSH PRN (17:44)
[2016-09-19] MEDS: QUEtiapine FUMARATE 200 MG TAB PO SCH (20:45)
[2016-09-19] MEDS: PRAZOSIN HCL 2 MG CAP PO SCH (20:45)
[2016-09-19 21:45] VITALS: BP 93/50; PULSE 97; RESP 17; TEMP 98.8; O2SAT 96
[2016-09-20] VITALS (8 sets, daily range): BP systolic 92–129; BP diastolic 49–59; PULSE 89–105; RESP 17–20; TEMP 97.1–98.3; O2SAT 94–100
[2016-09-20] MEDS: HYDROmorphone HCL 2 MG TAB PO PRN ×5 (03:45→22:14)
[2016-09-20] MEDS: CARISOPRODOL 350 MG TAB PO PRN ×4 (03:45→23:54)
[2016-09-20] MEDS: HEPARIN SODIUM - SQ 10,000 UNITS/ML VIAL SQ SCH ×2 (03:45→13:03)
[2016-09-20] MEDS: ceFOXitin INJ 2 GM in SODIUM CHLORIDE 0.9% INJ 100 ML IV SCH ×3 (03:46→16:45)
[2016-09-20] MEDS: MEROPENEM INJ 1,000 MG in SODIUM CHLORIDE 0.9% INJ 100 ML IV SCH ×3 (05:01→23:58)
[2016-09-20] MEDS: INSULIN NovoLIN REGULAR SUPPLEMENTAL SCALE SQ SCH ×4 (05:08→21:00)
[2016-09-20] MEDS: INSULIN DETEMIR 100 UNITS/ML VIAL SQ SCH ×2 (09:17→23:56)
[2016-09-20] MEDS: CLARITHROMYCIN 250 MG TAB PO SCH ×2 (09:18→23:56)
[2016-09-20] MEDS: GABAPENTIN 400 MG CAP PO SCH ×3 (09:18→22:13)
[2016-09-20] MEDS: carBAMazepine 200 MG TAB PO SCH ×2 (09:18→22:13)
[2016-09-20] MEDS: SODIUM CHLORIDE 0.9% FLUSH 5 ML FLUSH FLUSH SCH (09:19)
[2016-09-20] MEDS: ALPRAZolam 1 MG TAB PO PRN ×3 (09:26→22:13)
[2016-09-20] MEDS: ONDANSETRON HCL 4 MG/2 ML VIAL IVP PRN (11:47)
--- NOTE | 2016-09-20 12:18 | HHI.PR ---
Subjective Remarks in no distress. afebrile. had some nausea and vomiting earlier. reports diarrhea. Objective Vitals Vital Signs Date Time Temp Pulse Resp B/P Pulse Ox O2 Delivery O2 Flow Rate FiO2 09/20/16 10:36 92 09/20/16 08:00 97.3 105 20 105/49 100 09/20/16 05:00 98.1 94 18 92/49 99 09/20/16 00:00 97.9 89 18 93/55 95 09/19/16 21:45 98.8 97 17 93/50 96 09/19/16 15:24 99.2 104 19 111/55 96 I/O 09/19/16 09/19/16 09/19/16 09/20/16 09/20/16 09/20/16 07:00 15:00 23:00 07:00 15:00 23:00 Intake Total 240 ml 900 ml 1000 ml Output Total 0 ml Balance 240 ml 900 ml 1000 ml Intake Oral 240 ml 900 ml 1000 ml Output Urine Total 0 ml # Voids 1 4 1 # Bowel Movements 1 3 0 0 Result Diagram: 09/17/16 0630 09/19/16 0715 Imaging Last Impressions Liver Ultrasound 09/16/16 0000 Signed Impressions: Service Date/Time: Friday, September 16, 2016 10:51 - CONCLUSION: 1. Liver is mildly enlarged. 2. Status post cholecystectomy. 3. Minimal ascites. Marcell Courtney MD Chest X-Ray 09/16/16 0000 Signed Impressions: Service Date/Time: Friday, September 16, 2016 05:38 - CONCLUSION: 1. Subsegmental atelectasis the left lung base. Right lung clear. Morales Rey MD Lower Extremity Ultrasound 09/12/16 0000 Signed Impressions: Service Date/Time: August 17:55 - CONCLUSION: Negative for DVT. Nonspecific left groin lymph nodes Francois Boothe MD Foot MRI 09/06/16 0000 Signed Impressions: Service Date/Time: Tuesday, September 06, 2016 11:35 - CONCLUSION: Significant abnormality on the medial side of the foot with abnormal signal in the tarsal navicular and first cuneiform. Gonzalo Sears MD FACR Foot X-Ray 09/05/16 0000 Signed Impressions: Service Date/Time: August 23:39 - CONCLUSION: 1. There is no evidence of acute fracture. 2. Soft tissue swelling is present with gas in the soft tissues. No plain film findings of osteomyelitis. If there is necessity for further evaluation contrast-enhanced MRI is recommended. Gaurav Parks MD Ankle X-Ray 09/05/16 0000 Signed Impressions: Service Date/Time: August 23:36 - CONCLUSION: 1. There is no evidence of acute fracture. Gaurav Parks MD Objective Remarks GENERAL: This is a well-nourished, well-developed patient, in no apparent distress. CARDIOVASCULAR: Regular rate and regular rhythm without murmurs, gallops, or rubs. RESPIRATORY: Clear to auscultation. Breath sounds equal bilaterally. No wheezes , rales, or rhonchi. GASTROINTESTINAL: Abdomen soft, non-tender, nondistended. Normal, active bowel sounds MUSCULOSKELETAL: left foot covered with clean dressing. NEURO: Alert & Oriented x4 to person, place, time, situation. Moves all ext x4 Procedures central line placement I/D left foot/ ankle with wound vac placement Medications and IVs Current Medications Sodium Chloride 1,000 ml @ 2,000 mls/hr Q30M ONCE IV Last administered on 09/05 23:55; Start 09/05/16 at 23:22; Stop 09/05/16 at 23:51; Status DC Sodium Chloride (NS 1000 ml Inj) 1,000 ml @ 2,000 mls/hr Q30M ONCE IV Last administered on 09/06/16 00:40; Start 09/05/16 at 23:52; Stop 09/06/16 at 00:21 ; Status DC IV Flush 2 ml 2 ml UNSCH PRN IVF FLUSH AFTER USING IV ACCESS; Start 09/05/16 at 23:30; Stop 09/06/16 at 02:17; Status DC Vancomycin HCl 1000 mg/Sodium Chloride 250 ml @ 250 mls/hr ONCE ONCE IV Last administered on 09/06/16 05:02; Start 09/05/16 at 23:30; Stop 09/06/16 at 00:29 ; Status DC Clindamycin Phosphate/Sodium Chloride (Cleocin Inj/NS Inj) 106 ml @ 212 mls/hr ONCE ONCE IV Last administered on 09/06/16 01:46; Start 09/06/16 at 00:45; Stop 09/06/16 at 01:14; Status DC Insulin Human Regular (NovoLIN R INJ) 7 units ONCE ONCE IV PUSH Last administered on 09/06/16 01:09; Start 09/06/16 at 00:45; Stop 09/06/16 at 00:46 ; Status DC Ondansetron HCl (Zofran Inj) 4 mg ONCE ONCE IV PUSH Last administered on 01:46; Start 09/06/16 at 01:45; Stop 09/06/16 at 01:46; Status DC Hydromorphone HCl 0.5 mg 0.5 mg ONCE ONCE IV PUSH Last administered on 01:46; Start 09/06/16 at 01:45; Stop 09/06/16 at 01:46; Status DC Piperacillin Sod/ Tazobactam Sod 50 ml @ 100 mls/hr ONCE ONCE IV Last administered on 09/06/16 02:27; Start 09/06/16 at 02:00; Stop 09/06/16 at 02:29 ; Status DC Sodium Chloride (NS 1000 ml Inj) 1,000 ml @ 999 mls/hr BOLUS ONCE IV Last administered on 09/06/16 02:17; Start 09/06/16 at 02:00; Stop 09/06/16 at 03:00 ; Status DC IV Flush (NS Flush) 2 ml BID IVF ; Start 09/06/16 at 09:00; Stop 09/06/16 at 09: 00; Status DC IV Flush (NS Flush) 2 ml UNSCH PRN IVF FLUSH AFTER USING IV ACCESS; Start 09/06 at 02:15; Stop 09/06/16 at 02:54; Status DC Hydromorphone HCl 0.5 mg 0.5 mg ONCE ONCE IV PUSH Last administered on 02:33; Start 09/06/16 at 02:30; Stop 09/06/16 at 02:31; Status DC Potassium Chloride/Dextrose/ Sod Cl 1,000 ml @ 125 mls/hr Q8H IV ; Start at 02:30; Stop 09/06/16 at 03:17; Status DC Sodium Chloride (NS 1000 ml Inj) 1,000 ml @ 100 mls/hr Q10H IV Last administered on 09/06/16 05:53; Start 09/06/16 at 02:45; Stop 09/06/16 at 10:19 ; Status DC IV Flush (NS Flush) 2 ml UNSCH PRN FLUSH FLUSH AFTER USING IV ACCESS Last administered on 09/06/16 10:05; Start 09/06/16 at 02:45 IV Flush (NS Flush) 2 ml BID FLUSH Last administered on 09/20/16 09:19; Start 09/06/16 at 09:00 Acetaminophen (Tylenol) 650 mg Q4H PRN PO TEMP > 100.4 Last administered on 19:58; Start 09/06/16 at 02:45 Ondansetron HCl (Zofran Inj) 4 mg Q6H PRN IVP NAUSEA OR VOMITING Last administered on 09/20/16 11:47; Start 09/06/16 at 02:45 Sennosides (Senokot) 17.2 mg Q12H PRN PO CONSTIPATION; Start 09/06/16 at 02:45 Heparin Sodium (Porcine) (Heparin Inj) 5,000 units Q12H SQ Last administered on 09/20/16 03:45; Start 09/06/16 at 02:45 Naloxone HCl 0.4 mg 0.4 mg UNSCH PRN IV SEE LABEL COMMENTS; Start 09/06/16 at 02:45 Pharmacy Profile Note 0 ml @ 0 mls/hr UNSCH OTHER ; Start 09/06/16 at 02:45; Stop 09/06/16 at 09:07; Status DC Piperacillin Sod/ Tazobactam Sod (Zosyn 3.375 Gm Premix) 50 ml @ 100 mls/hr Q6H IV Last administered on 09/10/16 09:54; Start 09/06/16 at 09:00; Stop at 13:07; Status DC Dextrose (D50w (Vial) Inj) 25 ml UNSCH PRN IV PUSH HYPOGLYCEMIA-SEE COMMENTS Last administered on 09/14/16 18:39; Start 09/06/16 at 02:45 Glucagon (Glucagon Inj) 1 mg UNSCH PRN OTHER HYPOGLYCEMIA-SEE COMMENTS Last administered on 09/06/16 10:42; Start 09/06/16 at 02:45 Insulin Aspart (NovoLOG SUPPLEMENTAL SCALE) 1 ACHS SLIDING SCALE SQ Last administered on 09/07/16 05:28; Start 09/06/16 at 07:00; Stop 09/07/16 at 13:17 ; Status DC Dextrose (D50w (Syr) Inj) 25 ml ONCE ONCE IV ; Start 09/06/16 at 03:45; Stop at 03:46; Status Cancel Dextrose 25 ml 25 ml ONCE ONCE IV Last administered on 09/06/16 03:54; Start 09/06/16 at 04:00; Stop 09/06/16 at 04:01; Status DC Vancomycin HCl/ Sodium Chloride (Vancomycin Inj/ NS 500 ml Inj) 515 ml @ 257.5 mls/ hr Q24H IV ; Start 09/06/16 at 22:00; Stop 09/07/16 at 11:00; Status DC Miscellaneous Information SPECIFIC LAB TO BE LEANDRO... ONCE ONCE XX ; Start at 21:45; Stop 09/08/16 at 21:46; Status Cancel Hydromorphone HCl 1 mg 1 mg ONCE ONCE IV PUSH Last administered on 09/06/16 05:07; Start 09/06/16 at 05:00; Stop 09/06/16 at 05:01; Status DC Pharmacy Profile Note (Vancomycin Consult Pharmacy) 0 ml @ 0 mls/hr UNSCH OTHER ; Start 09/06/16 at 09:15; Stop 09/09/16 at 17:49; Status DC Dextrose (D25w Inj) 10 ml ONCE ONCE IV PUSH ; Start 09/06/16 at 10:00; Stop at 10:03; Status DC Hydromorphone HCl 0.5 mg 0.5 mg Q4H PRN IV PUSH BREAKTHROUGH PAIN Last administered on 09/19/16 17:44; Start 09/06/16 at 10:00 Levofloxacin/ Dextrose (Levaquin 500 Mg Premix Inj) 100 ml @ 100 mls/hr Q24H IV Last administered on 09/07/16 10:00; Start 09/06/16 at 10:00; Stop at 23:49; Status DC Alprazolam (Xanax) 2 mg Q6H PRN PO ANXIETY Last administered on 09/20/16 09:26 ; Start 09/06/16 at 10:00 Carbamazepine (TEGretol) 200 mg BID PO Last administered on 09/20/16 09:18; Start 09/06/16 at 21:00 Carisoprodol (Soma) 350 mg QID PRN PO MUSCLE SPASM Last administered on 09:26; Start 09/06/16 at 10:00 Gabapentin (Neurontin) 600 mg Q12HR PO Last administered on 09/07/16 09:07; Start 09/06/16 at 21:00; Stop 09/07/16 at 14:06; Status DC Hydromorphone HCl (Dilaudid) 4 mg Q6H PRN PO PAIN SCALE 1 TO 10 Last administered on 09/08/16 10:12; Start 09/06/16 at 10:00; Stop 09/08/16 at 12:55 ; Status DC Prazosin HCl (Minipress) 1 mg DAILY PO ; Start 09/07/16 at 09:00; Stop 09/07/16 at 14:03; Status DC Promethazine HCl (Phenergan) 25 mg Q6H PRN PO Nausea/Vomiting Last administered on 09/10/16 12:53; Start 09/06/16 at 10:00 Quetiapine Fumarate (SEROquel) 200 mg DAILY PO ; Start 09/07/16 at 09:00; Stop 09/07/16 at 14:05; Status DC Ropinirole HCl 2 mg 2 mg HS PO Last administered on 09/19/16 20:46; Start 09/06 at 21:00 Dextrose/Sodium Chloride 1,000 ml @ 100 mls/hr Q10H IV Last administered on 01:28; Start 09/06/16 at 10:19; Stop 09/07/16 at 14:22; Status DC Lactated Ringer's 1,000 ml @ 30 mls/hr Q24H IV ; Start 09/06/16 at 13:15; Stop 09/06/16 at 16:55; Status DC Sodium Chloride (NS 500 ml Inj) 500 ml @ 30 mls/hr [id number] IV ; Start 09/06/16 at 13:15; Stop 09/07/16 at 13:14; Status DC Insulin Human Regular (NovoLIN R INJ) See Protocol Table ... UNSCH X1 PRN SQ SEE PROTOCOL; Start 09/06/16 at 13:15; Stop 09/06/16 at 16:55; Status DC Metoprolol Tartrate (Lopressor) 25 mg UNSCH X1 PRN PO SEE LABEL COMMENTS; Start 09/06/16 at 13:15; Stop 09/06/16 at 16:55; Status DC Bupivacaine HCl (Marcaine Pf 0.25% Inj) 30 ml STK-MED ONCE .ROUTE ; Start at 13:12; Stop 09/06/16 at 13:13; Status DC Lidocaine HCl (Xylocaine 1% Inj (50 ml)) 50 ml STK-MED ONCE .ROUTE Last administered on 09/06/16 15:49; Start 09/06/16 at 13:12; Stop 09/06/16 at 13:13 ; Status DC Bupivacaine HCl (Marcaine Pf 0.5% Inj) 30 ml STK-MED ONCE .ROUTE Last administered on 09/06/16 15:49; Start 09/06/16 at 14:54; Stop 09/06/16 at 14:55 ; Status DC Midazolam HCl (Versed Inj) 4 mg STK-MED ONCE .ROUTE ; Start 09/06/16 at 15:48; Stop 09/06/16 at 15:49; Status DC Fentanyl Citrate (fentaNYL INJ) 250 mcg STK-MED ONCE .ROUTE ; Start 09/06/16 at 15:48; Stop 09/06/16 at 15:49; Status DC IV Flush (NS Flush) 2 ml UNSCH PRN IVF FLUSH AFTER USING IV ACCESS; Start 09/06 at 16:45; Stop 09/06/16 at 16:56; Status DC IV Flush (NS Flush) 2 ml BID IVF ; Start 09/06/16 at 21:00; Stop 09/06/16 at 21: 00; Status DC Miscellaneous Information (Post-op Orders (for Pharmacy)) STAT ONCE XX ; Start 09/06/16 at 16:45; Stop 09/06/16 at 16:54; Status DC Hydromorphone HCl (*DILAUDID PF INJ PERIprocedural ONLY) 1 mg STK-MED ONCE .ROUTE Last administered on 09/06/16 16:41; Start 09/06/16 at 16:41; Stop at 16:42; Status DC Hydromorphone HCl (*DILAUDID PF INJ PERIprocedural ONLY) 1 mg STK-MED ONCE .ROUTE Last administered on 09/06/16 16:48; Start 09/06/16 at 16:48; Stop at 16:49; Status DC Midazolam HCl (Versed Inj) 4 mg STK-MED ONCE .ROUTE ; Start 09/06/16 at 16:51; Stop 09/06/16 at 16:52; Status DC Fentanyl Citrate (fentaNYL INJ) 500 mcg STK-MED ONCE .ROUTE ; Start 09/06/16 at 16:51; Stop 09/06/16 at 16:52; Status DC Fentanyl Citrate (fentaNYL INJ) 200 mcg STK-MED ONCE .ROUTE ; Start 09/06/16 at 16:51; Stop 09/06/16 at 16:52; Status DC Morphine Sulfate (Morphine Inj) 8 mg STK-MED ONCE .ROUTE ; Start 09/06/16 at 16: 51; Stop 09/06/16 at 16:52; Status DC Hydroxyzine HCl (*VISTARIL INJ PERIprocedural ONLY) 25 mg STK-MED ONCE IM Last administered on 09/06/16 16:56; Start 09/06/16 at 16:56; Stop 09/06/16 at 16:57 ; Status DC Hydromorphone HCl (*DILAUDID PF INJ PERIprocedural ONLY) 1 mg STK-MED ONCE .ROUTE Last administered on 09/06/16 16:57; Start 09/06/16 at 16:57; Stop at 16:58; Status DC Neomycin/ Polymyxin 2 ml 2 ml STK-MED ONCE IR Last administered on 09/06/16 16 :00; Start 09/06/16 at 16:00; Stop 09/06/16 at 17:48; Status DC Vancomycin HCl/ Sodium Chloride (Vancomycin Inj/ NS 250 ml Inj) 250 ml @ 250 mls/hr Q12H IV Last administered on 09/09/16 01:32; Start 09/07/16 at 12:00; Stop 09/09/16 at 15:15; Status DC Miscellaneous Information SPECIFIC LAB TO BE ... ONCE ONCE XX Last administered on 09/09/16 11:45; Start 09/09/16 at 11:45; Stop 09/09/16 at 11:46 ; Status DC Insulin Human Regular (NovoLIN R SUPPLEMENTAL SCALE) 1 ACHS SLIDING SCALE SQ Last administered on 09/20/16 11:00; Start 09/07/16 at 16:00 Prazosin HCl (Minipress) 2 mg HS PO Last administered on 09/19/16 20:45; Start 09/07/16 at 21:00 Quetiapine Fumarate (SEROquel) 200 mg HS PO Last administered on 09/19/16 20:45 ; Start 09/07/16 at 21:00 Gabapentin (Neurontin) 400 mg BID@09,12 PO Last administered on 09/20/16 11:30 ; Start 09/08/16 at 09:00 Gabapentin (Neurontin) 800 mg HS PO Last administered on 09/19/16 20:46; Start 09/07/16 at 21:00 Insulin Detemir (Levemir Inj) 40 units DAILY SQ ; Start 09/08/16 at 09:00; Stop 09/08/16 at 10:45; Status DC Insulin Detemir 20 units 20 units HS SQ Last administered on 09/07/16 21:49; Start 09/07/16 at 21:00; Stop 09/08/16 at 10:49; Status DC Sodium Chloride (NS 1000 ml Inj) 1,000 ml @ 100 mls/hr Q10H IV Last administered on 09/15/16 03:00; Start 09/07/16 at 15:00; Status Hold Insulin Detemir (Levemir Inj) 10 units Q12HR SQ Last administered on 09/07/16 21:49; Start 09/07/16 at 21:00; Stop 09/08/16 at 10:49; Status DC Calcium Carbonate (Oscal) 500 mg Q12HR PO Last administered on 09/14/16 09:36 ; Start 09/07/16 at 21:00; Stop 09/14/16 at 20:59; Status DC Clindamycin HCl (Cleocin) 450 mg Q6HR PO Last administered on 09/10/16 11:29; Start 09/08/16 at 00:00; Stop 09/10/16 at 13:08; Status DC Bupivacaine HCl (Marcaine Pf 0.5% Inj) 30 ml STK-MED ONCE .ROUTE Last administered on 09/08/16 08:24; Start 09/08/16 at 07:12; Stop 09/08/16 at 07:13 ; Status DC Lidocaine HCl (Xylocaine 1% Inj (50 ml)) 50 ml STK-MED ONCE .ROUTE Last administered on 09/08/16 08:24; Start 09/08/16 at 07:13; Stop 09/08/16 at 07:14 ; Status DC Neomycin/Polymyxin (Neosporin G.u. Irr) 2 ml STK-MED ONCE IR Last administered on 09/08/16 07:18; Start 09/08/16 at 07:18; Stop 09/08/16 at 07:19; Status DC Midazolam HCl (Versed Inj) 2 mg STK-MED ONCE .ROUTE ; Start 09/08/16 at 07:56; Stop 09/08/16 at 07:57; Status DC Fentanyl Citrate (fentaNYL INJ) 250 mcg STK-MED ONCE .ROUTE ; Start 09/08/16 at 07:56; Stop 09/08/16 at 07:57; Status DC Acetaminophen (Ofirmev Inj) 1,000 mg STK-MED ONCE IV ; Start 09/08/16 at 07:56; Stop 09/08/16 at 07:57; Status DC Sugammadex Sodium (Bridion Inj) 200 mg STK-MED ONCE IV PUSH ; Start 09/08/16 at 07:57; Stop 09/08/16 at 07:58; Status DC IV Flush (NS Flush) 2 ml UNSCH PRN IVF FLUSH AFTER USING IV ACCESS; Start 09/08 at 09:00; Stop 09/08/16 at 09:06; Status DC IV Flush (NS Flush) 2 ml BID IVF ; Start 09/08/16 at 09:00; Stop 09/08/16 at 09: 06; Status DC Miscellaneous Information (Post-op Orders (for Pharmacy)) STAT ONCE XX ; Start 09/08/16 at 09:00; Stop 09/08/16 at 09:19; Status DC Hydromorphone HCl (*DILAUDID PF INJ PERIprocedural ONLY) 1 mg STK-MED ONCE .ROUTE Last administered on 09/08/16 09:00; Start 09/08/16 at 09:00; Stop at 09:01; Status DC Morphine Sulfate (Morphine Inj) 4 mg STK-MED ONCE .ROUTE ; Start 09/08/16 at 09: 01; Stop 09/08/16 at 09:02; Status DC Miscellaneous Information ALL NURSING DEPARTME... UNSCH PRN XX SEE LABEL COMMENTS; Start 09/08/16 at 08:55; Stop 09/09/16 at 08:54; Status DC Insulin Detemir (Levemir Inj) 20 units DAILYAC SQ ; Start 09/09/16 at 08:00; Stop 09/09/16 at 11:17; Status DC Insulin Detemir (Levemir Inj) 10 units HS SQ Last administered on 09/19/16 21: 00; Start 09/08/16 at 21:00 Hydromorphone HCl (Dilaudid) 4 mg Q4H PRN PO PAIN SCALE 6 TO 10 Last administered on 09/18/16 17:43; Start 09/08/16 at 14:00 Hydromorphone HCl (Dilaudid) 2 mg Q4H PRN PO pain3-5 Last administered on 09:17; Start 09/08/16 at 13:00 Insulin Detemir (Levemir Inj) 30 units DAILYAC SQ Last administered on 09:37; Start 09/10/16 at 08:00; Stop 09/15/16 at 09:29; Status DC Insulin Aspart 3 units 3 units TIDAC SQ Last administered on 09/13/16 17:54; Start 09/09/16 at 12:00; Status Hold Vancomycin HCl/ Sodium Chloride (Vancomycin Inj/ NS 500 ml Inj) 515 ml @ 257.5 mls/ hr Q12H IV ; Start 09/09/16 at 20:00; Stop 09/09/16 at 20:00; Status DC Miscellaneous Information SPECIFIC LAB TO BE DRAWN:VANCOMYCIN TROUGH DATE TO... ONCE ONCE XX ; Start 09/11/16 at 07:45; Stop 09/11/16 at 07:45; Status DC Fluconazole 200 mg 200 mg DAILY PO Last administered on 09/10/16 09:54; Start 09/09/16 at 18:00; Stop 09/10/16 at 13:07; Status DC Lactated Ringer's 1,000 ml @ 30 mls/hr Q24H IV Last administered on 09/11/16 07:30; Start 09/10/16 at 08:30 Sodium Chloride 500 ml @ 30 mls/hr [id number] IV ; Start 09/10/16 at 08:30; Stop 09/11/16 at 08:29; Status DC Dextrose/Sodium Chloride (D5W-NS 1000 ml Inj) 1,000 ml @ 60 mls/hr [id number] IV Last administered on 09/10/16 11:25; Start 09/10/16 at 11:15; Stop 09/11/16 at 03:54; Status DC Acetaminophen (Tylenol Supp) 325 mg Q4H PRN RECTAL fever >100.4 Last administered on 09/10/16 12:21; Start 09/10/16 at 12:00 Propofol (Diprivan 200 Mg/20 ml Inj) 200 mg STK-MED ONCE IV ; Start 09/06/16 at 12:00; Stop 09/10/16 at 12:53; Status DC Ondansetron HCl 4 mg 4 mg STK-MED ONCE IV PUSH ; Start 09/06/16 at 12:00; Stop 09/10/16 at 12:53; Status DC Lactated Ringer's 1,000 ml @ As Directed STK-MED ONCE IV ; Start 09/06/16 at 12 :00; Stop 09/10/16 at 12:53; Status DC Ceftriaxone Sodium 2000 mg/ Sodium Chloride 100 ml @ 200 mls/hr Q24H IV Last administered on 09/11/16 13:42; Start 09/10/16 at 14:00; Stop 09/12/16 at 08:20 ; Status DC Fluconazole/ Sodium Chloride (Diflucan 400 Mg Premix Bag) 200 ml @ 100 mls/hr Q24H IV Last administered on 09/19/16 16:04; Start 09/10/16 at 15:00 Propofol (Diprivan 200 Mg/20 ml Inj) 200 mg STK-MED ONCE IV ; Start 09/08/16 at 12:00; Stop 09/10/16 at 13:13; Status DC Ondansetron HCl 4 mg 4 mg STK-MED ONCE IV PUSH ; Start 09/08/16 at 12:00; Stop 09/10/16 at 13:13; Status DC Lactated Ringer's (Lr 1000 ml Inj) 1,000 ml @ As Directed STK-MED ONCE IV ; Start 09/08/16 at 12:00; Stop 09/10/16 at 13:13; Status DC Fentanyl Citrate (fentaNYL INJ) 250 mcg STK-MED ONCE .ROUTE ; Start 09/11/16 at 07:05; Stop 09/11/16 at 07:06; Status DC Midazolam HCl (Versed Inj) 2 mg STK-MED ONCE .ROUTE ; Start 09/11/16 at 07:16; Stop 09/11/16 at 07:17; Status DC Midazolam HCl (Versed Inj) 2 mg STK-MED ONCE .ROUTE ; Start 09/11/16 at 07:16; Stop 09/11/16 at 07:17; Status DC Bupivacaine HCl (Marcaine Pf 0.5% Inj) 30 ml STK-MED ONCE .ROUTE Last administered on 09/11/16 08:00; Start 09/11/16 at 07:33; Stop 09/11/16 at 07:34 ; Status DC Lidocaine HCl (Xylocaine-Mpf 2% Inj) 30 ml STK-MED ONCE .ROUTE Last administered on 09/11/16 08:00; Start 09/11/16 at 07:33; Stop 09/11/16 at 07:34 ; Status DC Hydromorphone HCl (*DILAUDID PF INJ PERIprocedural ONLY) 1 mg STK-MED ONCE .ROUTE Last administered on 09/11/16 08:58; Start 09/11/16 at 08:58; Stop at 08:59; Status DC Meperidine HCl (*DEMEROL INJ PERIprocedural ONLY) 25 mg STK-MED ONCE .ROUTE Last administered on 09/11/16 09:05; Start 09/11/16 at 09:05; Stop 09/11/16 at 09:06; Status DC Hydromorphone HCl (*DILAUDID PF INJ PERIprocedural ONLY) 1 mg STK-MED ONCE .ROUTE Last administered on 09/11/16 09:12; Start 09/11/16 at 09:12; Stop at 09:13; Status DC Miscellaneous Information ALL NURSING DEPARTME... UNSCH PRN XX SEE LABEL COMMENTS; Start 09/11/16 at 08:49; Stop 09/12/16 at 08:48; Status DC Hydroxyzine HCl (*VISTARIL INJ PERIprocedural ONLY) 25 mg STK-MED ONCE IM Last administered on 09/11/16 09:12; Start 09/11/16 at 09:12; Stop 09/11/16 at 09:13 ; Status DC Insulin Detemir (Levemir Inj) 20 units NOW ONCE SQ Last administered on 12:34; Start 09/11/16 at 11:15; Stop 09/11/16 at 11:16; Status DC Neomycin/Polymyxin (Neosporin G.u. Irr) 1 ml STK-MED ONCE IR Last administered on 09/11/16 08:00; Start 09/11/16 at 08:00; Stop 09/11/16 at 12:34; Status DC Hydromorphone HCl 1 mg 1 mg ONCE ONCE IV PUSH Last administered on 09/12/16 00:35; Start 09/12/16 at 00:00; Stop 09/12/16 at 00:03; Status DC Cefepime HCl 2000 mg/Sodium Chloride 100 ml @ 200 mls/hr Q8H IV Last administered on 09/16/16 08:32; Start 09/12/16 at 10:00; Stop 09/16/16 at 14:09 ; Status DC Pharmacy Profile Note 0 ml @ 0 mls/hr UNSCH OTHER ; Start 09/12/16 at 08:30; Stop 09/17/16 at 19:26; Status DC Vancomycin HCl/ Sodium Chloride (Vancomycin Inj/ NS 500 ml Inj) 515 ml @ 250 mls/hr Q12H IV Last administered on 09/17/16 11:18; Start 09/12/16 at 12:00; Stop 09/17/16 at 19:26; Status DC Miscellaneous Information SPECIFIC LAB TO BE DRAWN:VANCOMYCIN TROUGH DATE TO... ONCE ONCE XX ; Start 09/14/16 at 11:45; Stop 09/14/16 at 11:46; Status DC Propofol (Diprivan 200 Mg/20 ml Inj) 200 mg STK-MED ONCE IV ; Start 09/11/16 at 10:45; Stop 09/12/16 at 10:45; Status DC Neostigmine Methylsulfate (Prostigmin Inj) 3 mg STK-MED ONCE IV ; Start at 10:45; Stop 09/12/16 at 10:45; Status DC Ondansetron HCl (Zofran Inj) 4 mg STK-MED ONCE IV PUSH ; Start 09/11/16 at 10:45 ; Stop 09/12/16 at 10:45; Status DC Miscellaneous Information SPECIFIC LAB TO BE DRAWN:VANCOMYCIN TROUGH DATE TO... ONCE ONCE XX Last administered on 09/14/16 23:45; Start 09/14/16 at 23:45; Stop 09/14/16 at 23:46; Status DC Insulin Detemir (Levemir Inj) 26 units DAILYAC SQ Last administered on 09:00; Start 09/16/16 at 08:00; Stop 09/17/16 at 11:47; Status DC Acetaminophen 650 mg 650 mg Q4H PRN PO SEE LABEL COMMENTS Last administered on 09/16/16 03:35; Start 09/16/16 at 03:30; Stop 09/16/16 at 07:32; Status DC Aztreonam/Sodium Chloride (Azactam Inj/NS Inj) 100 ml @ 200 mls/hr Q8H IV Last administered on 09/17/16 18:00; Start 09/16/16 at 15:00; Stop 09/17/16 at 19:27; Status DC Insulin Detemir (Levemir Inj) 24 units DAILYAC SQ ; Start 09/18/16 at 08:00; Stop 09/18/16 at 11:24; Status DC Miscellaneous Information SPECIFIC LAB TO BE DRAWN:VANCOMYCIN TROUGH DATE TO... ONCE ONCE XX ; Start 09/18/16 at 11:45; Stop 09/18/16 at 11:46; Status Cancel Cefoxitin Sodium/ Sodium Chloride (Mefoxin Inj/NS Inj) 100 ml @ 200 mls/hr Q6H IV Last administered on 09/20/16 11:29; Start 09/17/16 at 23:00 Clarithromycin (Biaxin) 250 mg Q12HR PO Last administered on 09/20/16 09:18; Start 09/17/16 at 21:00 Miscellaneous Medication (ASP Crit: Other exception documentation) 1 UNSCH X1 PRN XX PHARMACY DOCUMENTATION; Start 09/17/16 at 19:30; Stop 09/18/16 at 19:29; Status DC Miscellaneous Medication 1 1 UNSCH X1 PRN XX PHARMACY DOCUMENTATION; Start at 19:30; Stop 09/18/16 at 19:29; Status DC Meropenem/Sodium Chloride (Merrem Inj/NS Inj) 100 ml @ 200 mls/hr Q8H IV Last administered on 09/20/16 05:01; Start 09/17/16 at 22:00 Insulin Detemir (Levemir Inj) 20 units DAILYAC SQ Last administered on 09:17; Start 09/19/16 at 08:00 A/P Assessment and Plan A/p - Sepsis with Infected diabetic left foot gangrene/necrotizing fasciitis status post I&D- with recurrent fever and positive blood culture for AFB Abx per ID; started on Meropenem, Cefoxitin, Biaxin and Diflucan repeated blood cultures negative. cleared by podiatry for discharge. - Acute increase in transaminitis- will monitor LFT's-abdominal sonogram with mildly enlarged liver and minimal ascites. - Acute on chronic anemia-s/p PRBC transfusion- will monitor H/H -diabetes mellitus with hypoglycemic episode with no further recurrence; continue long-acting insulin and continue accu-check with SSI- continue to hold AC novolog. - Chronic pain syndrome with neck surgery in the past; continue with pain control. - History of IV drug abuse in the past . -diarrhea; check the stool for c-diff. -nausea/ vomiting; antiemetics as needed. Discharge Planning not ready for discharge. Uzair Rodriguez MD Sep 20, 2016 12:18
[2016-09-20] MEDS: HYDROmorphone HCL PF 1 MG/ML VIAL IV PUSH PRN (13:40)
[2016-09-20] MEDS: FLUCONAZOLE 400 MG PREMIX BAG 200 ML IV SCH (14:38)
[2016-09-20] MEDS: PRAZOSIN HCL 2 MG CAP PO SCH (22:13)
[2016-09-20] MEDS: QUEtiapine FUMARATE 200 MG TAB PO SCH (22:14)
[2016-09-21] VITALS (8 sets, daily range): BP systolic 98–117; BP diastolic 51–68; PULSE 93–115; RESP 16–23; TEMP 96.8–99.2; O2SAT 94–100
[2016-09-21] MEDS: ceFOXitin INJ 2 GM in SODIUM CHLORIDE 0.9% INJ 100 ML IV SCH ×4 (00:01→17:02)
[2016-09-21] MEDS: SODIUM CHLORIDE 0.9% FLUSH 5 ML FLUSH FLUSH SCH ×2 (00:02→08:53)
[2016-09-21] MEDS: HEPARIN SODIUM - SQ 10,000 UNITS/ML VIAL SQ SCH ×2 (03:14→15:28)
[2016-09-21] MEDS: HYDROmorphone HCL 2 MG TAB PO PRN ×4 (03:15→18:16)
[2016-09-21] MEDS: INSULIN NovoLIN REGULAR SUPPLEMENTAL SCALE SQ SCH ×4 (07:00→20:50)
[2016-09-21] MEDS: MEROPENEM INJ 1,000 MG in SODIUM CHLORIDE 0.9% INJ 100 ML IV SCH ×2 (07:56→15:27)
[2016-09-21] MEDS: CARISOPRODOL 350 MG TAB PO PRN ×3 (08:05→20:31)
[2016-09-21] MEDS: ALPRAZolam 1 MG TAB PO PRN ×2 (08:15→15:27)
[2016-09-21] MEDS: LACTATED RINGER'S 1000 ML IV SCH (08:30)
[2016-09-21] MEDS: INSULIN DETEMIR 100 UNITS/ML VIAL SQ SCH ×2 (08:51→21:00)
[2016-09-21] MEDS: carBAMazepine 200 MG TAB PO SCH ×2 (08:52→20:31)
[2016-09-21] MEDS: GABAPENTIN 400 MG CAP PO SCH ×3 (08:52→20:31)
[2016-09-21] MEDS: CLARITHROMYCIN 250 MG TAB PO SCH ×2 (10:10→20:47)
--- NOTE | 2016-09-21 12:53 | HHI.PR ---
Subjective Remarks in no acute distress. somewhat lethargic. d/w the RN; reportedly is not eating or moving as much. Objective Vitals Vital Signs Date Time Temp Pulse Resp B/P Pulse Ox O2 Delivery O2 Flow Rate FiO2 09/21/16 11:19 99 09/21/16 10:20 20 09/21/16 10:20 20 09/21/16 08:00 97.2 95 20 117/57 99 09/21/16 05:45 97.1 115 23 102/54 94 09/21/16 00:00 98.6 101 17 98/51 94 09/20/16 21:40 98.3 102 17 129/59 94 09/20/16 18:00 97 09/20/16 16:00 97.1 97 20 110/53 98 I/O 09/20/16 09/20/16 09/20/16 09/21/16 09/21/16 09/21/16 07:00 15:00 23:00 07:00 15:00 23:00 Intake Total 1000 ml 480 ml 850 ml 900 ml Output Total 0 ml 0 ml 0 ml Balance 1000 ml 480 ml 850 ml 900 ml Intake Oral 1000 ml 480 ml 850 ml 900 ml Output Urine Total 0 ml 0 ml 0 ml # Voids 2 # Bowel Movements 0 1 0 0 Result Diagram: 09/17/16 0630 09/21/16 0713 Imaging Last Impressions Liver Ultrasound 09/16/16 0000 Signed Impressions: Service Date/Time: Friday, September 16, 2016 10:51 - CONCLUSION: 1. Liver is mildly enlarged. 2. Status post cholecystectomy. 3. Minimal ascites. Marcell Courtney MD Chest X-Ray 09/16/16 0000 Signed Impressions: Service Date/Time: Friday, September 16, 2016 05:38 - CONCLUSION: 1. Subsegmental atelectasis the left lung base. Right lung clear. Morales Rey MD Lower Extremity Ultrasound 09/12/16 0000 Signed Impressions: Service Date/Time: August 17:55 - CONCLUSION: Negative for DVT. Nonspecific left groin lymph nodes Francois Boothe MD Foot MRI 09/06/16 0000 Signed Impressions: Service Date/Time: Tuesday, September 06, 2016 11:35 - CONCLUSION: Significant abnormality on the medial side of the foot with abnormal signal in the tarsal navicular and first cuneiform. Gonzalo Sears MD FACR Foot X-Ray 09/05/16 0000 Signed Impressions: Service Date/Time: August 23:39 - CONCLUSION: 1. There is no evidence of acute fracture. 2. Soft tissue swelling is present with gas in the soft tissues. No plain film findings of osteomyelitis. If there is necessity for further evaluation contrast-enhanced MRI is recommended. Gaurav Parks MD Ankle X-Ray 09/05/16 0000 Signed Impressions: Service Date/Time: August 23:36 - CONCLUSION: 1. There is no evidence of acute fracture. Gaurav Parks MD Objective Remarks GENERAL: This is a well-nourished, well-developed patient, in no apparent distress. CARDIOVASCULAR: Regular rate and regular rhythm without murmurs, gallops, or rubs. RESPIRATORY: Clear to auscultation. Breath sounds equal bilaterally. No wheezes , rales, or rhonchi. GASTROINTESTINAL: Abdomen soft, non-tender, nondistended. Normal, active bowel sounds MUSCULOSKELETAL: left foot covered with clean dressing. NEURO: Alert & Oriented x4 to person, place, time, situation. Moves all ext x4 Procedures central line placement I/D left foot/ ankle with wound vac placement Medications and IVs Current Medications Sodium Chloride 1,000 ml @ 2,000 mls/hr Q30M ONCE IV Last administered on 09/05 23:55; Start 09/05/16 at 23:22; Stop 09/05/16 at 23:51; Status DC Sodium Chloride (NS 1000 ml Inj) 1,000 ml @ 2,000 mls/hr Q30M ONCE IV Last administered on 09/06/16 00:40; Start 09/05/16 at 23:52; Stop 09/06/16 at 00:21 ; Status DC IV Flush 2 ml 2 ml UNSCH PRN IVF FLUSH AFTER USING IV ACCESS; Start 09/05/16 at 23:30; Stop 09/06/16 at 02:17; Status DC Vancomycin HCl 1000 mg/Sodium Chloride 250 ml @ 250 mls/hr ONCE ONCE IV Last administered on 09/06/16 05:02; Start 09/05/16 at 23:30; Stop 09/06/16 at 00:29 ; Status DC Clindamycin Phosphate/Sodium Chloride (Cleocin Inj/NS Inj) 106 ml @ 212 mls/hr ONCE ONCE IV Last administered on 09/06/16 01:46; Start 09/06/16 at 00:45; Stop 09/06/16 at 01:14; Status DC Insulin Human Regular (NovoLIN R INJ) 7 units ONCE ONCE IV PUSH Last administered on 09/06/16 01:09; Start 09/06/16 at 00:45; Stop 09/06/16 at 00:46 ; Status DC Ondansetron HCl (Zofran Inj) 4 mg ONCE ONCE IV PUSH Last administered on 01:46; Start 09/06/16 at 01:45; Stop 09/06/16 at 01:46; Status DC Hydromorphone HCl 0.5 mg 0.5 mg ONCE ONCE IV PUSH Last administered on 01:46; Start 09/06/16 at 01:45; Stop 09/06/16 at 01:46; Status DC Piperacillin Sod/ Tazobactam Sod 50 ml @ 100 mls/hr ONCE ONCE IV Last administered on 09/06/16 02:27; Start 09/06/16 at 02:00; Stop 09/06/16 at 02:29 ; Status DC Sodium Chloride (NS 1000 ml Inj) 1,000 ml @ 999 mls/hr BOLUS ONCE IV Last administered on 09/06/16 02:17; Start 09/06/16 at 02:00; Stop 09/06/16 at 03:00 ; Status DC IV Flush (NS Flush) 2 ml BID IVF ; Start 09/06/16 at 09:00; Stop 09/06/16 at 09: 00; Status DC IV Flush (NS Flush) 2 ml UNSCH PRN IVF FLUSH AFTER USING IV ACCESS; Start 09/06 at 02:15; Stop 09/06/16 at 02:54; Status DC Hydromorphone HCl 0.5 mg 0.5 mg ONCE ONCE IV PUSH Last administered on 02:33; Start 09/06/16 at 02:30; Stop 09/06/16 at 02:31; Status DC Potassium Chloride/Dextrose/ Sod Cl 1,000 ml @ 125 mls/hr Q8H IV ; Start at 02:30; Stop 09/06/16 at 03:17; Status DC Sodium Chloride (NS 1000 ml Inj) 1,000 ml @ 100 mls/hr Q10H IV Last administered on 09/06/16 05:53; Start 09/06/16 at 02:45; Stop 09/06/16 at 10:19 ; Status DC IV Flush (NS Flush) 2 ml UNSCH PRN FLUSH FLUSH AFTER USING IV ACCESS Last administered on 09/06/16 10:05; Start 09/06/16 at 02:45 IV Flush (NS Flush) 2 ml BID FLUSH Last administered on 09/21/16 08:53; Start 09/06/16 at 09:00 Acetaminophen (Tylenol) 650 mg Q4H PRN PO TEMP > 100.4 Last administered on 19:58; Start 09/06/16 at 02:45 Ondansetron HCl (Zofran Inj) 4 mg Q6H PRN IVP NAUSEA OR VOMITING Last administered on 09/20/16 11:47; Start 09/06/16 at 02:45 Sennosides (Senokot) 17.2 mg Q12H PRN PO CONSTIPATION; Start 09/06/16 at 02:45 Heparin Sodium (Porcine) (Heparin Inj) 5,000 units Q12H SQ Last administered on 09/21/16 03:14; Start 09/06/16 at 02:45 Naloxone HCl 0.4 mg 0.4 mg UNSCH PRN IV SEE LABEL COMMENTS; Start 09/06/16 at 02:45 Pharmacy Profile Note 0 ml @ 0 mls/hr UNSCH OTHER ; Start 09/06/16 at 02:45; Stop 09/06/16 at 09:07; Status DC Piperacillin Sod/ Tazobactam Sod (Zosyn 3.375 Gm Premix) 50 ml @ 100 mls/hr Q6H IV Last administered on 09/10/16 09:54; Start 09/06/16 at 09:00; Stop at 13:07; Status DC Dextrose (D50w (Vial) Inj) 25 ml UNSCH PRN IV PUSH HYPOGLYCEMIA-SEE COMMENTS Last administered on 09/14/16 18:39; Start 09/06/16 at 02:45 Glucagon (Glucagon Inj) 1 mg UNSCH PRN OTHER HYPOGLYCEMIA-SEE COMMENTS Last administered on 09/06/16 10:42; Start 09/06/16 at 02:45 Insulin Aspart (NovoLOG SUPPLEMENTAL SCALE) 1 ACHS SLIDING SCALE SQ Last administered on 09/07/16 05:28; Start 09/06/16 at 07:00; Stop 09/07/16 at 13:17 ; Status DC Dextrose (D50w (Syr) Inj) 25 ml ONCE ONCE IV ; Start 09/06/16 at 03:45; Stop at 03:46; Status Cancel Dextrose 25 ml 25 ml ONCE ONCE IV Last administered on 09/06/16 03:54; Start 09/06/16 at 04:00; Stop 09/06/16 at 04:01; Status DC Vancomycin HCl/ Sodium Chloride (Vancomycin Inj/ NS 500 ml Inj) 515 ml @ 257.5 mls/ hr Q24H IV ; Start 09/06/16 at 22:00; Stop 09/07/16 at 11:00; Status DC Miscellaneous Information SPECIFIC LAB TO BE LEANDRO... ONCE ONCE XX ; Start at 21:45; Stop 09/08/16 at 21:46; Status Cancel Hydromorphone HCl 1 mg 1 mg ONCE ONCE IV PUSH Last administered on 09/06/16 05:07; Start 09/06/16 at 05:00; Stop 09/06/16 at 05:01; Status DC Pharmacy Profile Note (Vancomycin Consult Pharmacy) 0 ml @ 0 mls/hr UNSCH OTHER ; Start 09/06/16 at 09:15; Stop 09/09/16 at 17:49; Status DC Dextrose (D25w Inj) 10 ml ONCE ONCE IV PUSH ; Start 09/06/16 at 10:00; Stop at 10:03; Status DC Hydromorphone HCl 0.5 mg 0.5 mg Q4H PRN IV PUSH BREAKTHROUGH PAIN Last administered on 09/20/16 13:40; Start 09/06/16 at 10:00 Levofloxacin/ Dextrose (Levaquin 500 Mg Premix Inj) 100 ml @ 100 mls/hr Q24H IV Last administered on 09/07/16 10:00; Start 09/06/16 at 10:00; Stop at 23:49; Status DC Alprazolam (Xanax) 2 mg Q6H PRN PO ANXIETY Last administered on 09/21/16 08:15 ; Start 09/06/16 at 10:00 Carbamazepine (TEGretol) 200 mg BID PO Last administered on 09/21/16 08:52; Start 09/06/16 at 21:00 Carisoprodol (Soma) 350 mg QID PRN PO MUSCLE SPASM Last administered on 08:05; Start 09/06/16 at 10:00 Gabapentin (Neurontin) 600 mg Q12HR PO Last administered on 09/07/16 09:07; Start 09/06/16 at 21:00; Stop 09/07/16 at 14:06; Status DC Hydromorphone HCl (Dilaudid) 4 mg Q6H PRN PO PAIN SCALE 1 TO 10 Last administered on 09/08/16 10:12; Start 09/06/16 at 10:00; Stop 09/08/16 at 12:55 ; Status DC Prazosin HCl (Minipress) 1 mg DAILY PO ; Start 09/07/16 at 09:00; Stop 09/07/16 at 14:03; Status DC Promethazine HCl (Phenergan) 25 mg Q6H PRN PO Nausea/Vomiting Last administered on 09/10/16 12:53; Start 09/06/16 at 10:00 Quetiapine Fumarate (SEROquel) 200 mg DAILY PO ; Start 09/07/16 at 09:00; Stop 09/07/16 at 14:05; Status DC Ropinirole HCl 2 mg 2 mg HS PO Last administered on 09/20/16 22:13; Start 09/06 at 21:00 Dextrose/Sodium Chloride 1,000 ml @ 100 mls/hr Q10H IV Last administered on 01:28; Start 09/06/16 at 10:19; Stop 09/07/16 at 14:22; Status DC Lactated Ringer's 1,000 ml @ 30 mls/hr Q24H IV ; Start 09/06/16 at 13:15; Stop 09/06/16 at 16:55; Status DC Sodium Chloride (NS 500 ml Inj) 500 ml @ 30 mls/hr [id number] IV ; Start 09/06/16 at 13:15; Stop 09/07/16 at 13:14; Status DC Insulin Human Regular (NovoLIN R INJ) See Protocol Table ... UNSCH X1 PRN SQ SEE PROTOCOL; Start 09/06/16 at 13:15; Stop 09/06/16 at 16:55; Status DC Metoprolol Tartrate (Lopressor) 25 mg UNSCH X1 PRN PO SEE LABEL COMMENTS; Start 09/06/16 at 13:15; Stop 09/06/16 at 16:55; Status DC Bupivacaine HCl (Marcaine Pf 0.25% Inj) 30 ml STK-MED ONCE .ROUTE ; Start at 13:12; Stop 09/06/16 at 13:13; Status DC Lidocaine HCl (Xylocaine 1% Inj (50 ml)) 50 ml STK-MED ONCE .ROUTE Last administered on 09/06/16t 15:49; Start 09/06/16 at 13:12; Stop 09/06/16 at 13:13 ; Status DC Bupivacaine HCl (Marcaine Pf 0.5% Inj) 30 ml STK-MED ONCE .ROUTE Last administered on 09/06/16t 15:49; Start 09/06/16 at 14:54; Stop 09/06/16 at 14:55 ; Status DC Midazolam HCl (Versed Inj) 4 mg STK-MED ONCE .ROUTE ; Start 09/06/16 at 15:48; Stop 09/06/16 at 15:49; Status DC Fentanyl Citrate (fentaNYL INJ) 250 mcg STK-MED ONCE .ROUTE ; Start 09/06/16 at 15:48; Stop 09/06/16 at 15:49; Status DC IV Flush (NS Flush) 2 ml UNSCH PRN IVF FLUSH AFTER USING IV ACCESS; Start 09/06 at 16:45; Stop 09/06/16 at 16:56; Status DC IV Flush (NS Flush) 2 ml BID IVF ; Start 09/06/16 at 21:00; Stop 09/06/16 at 21: 00; Status DC Miscellaneous Information (Post-op Orders (for Pharmacy)) STAT ONCE XX ; Start 09/06/16 at 16:45; Stop 09/06/16 at 16:54; Status DC Hydromorphone HCl (*DILAUDID PF INJ PERIprocedural ONLY) 1 mg STK-MED ONCE .ROUTE Last administered on 09/06/16 16:41; Start 09/06/16 at 16:41; Stop at 16:42; Status DC Hydromorphone HCl (*DILAUDID PF INJ PERIprocedural ONLY) 1 mg STK-MED ONCE .ROUTE Last administered on 09/06/16 16:48; Start 09/06/16 at 16:48; Stop at 16:49; Status DC Midazolam HCl (Versed Inj) 4 mg STK-MED ONCE .ROUTE ; Start 09/06/16 at 16:51; Stop 09/06/16 at 16:52; Status DC Fentanyl Citrate (fentaNYL INJ) 500 mcg STK-MED ONCE .ROUTE ; Start 09/06/16 at 16:51; Stop 09/06/16 at 16:52; Status DC Fentanyl Citrate (fentaNYL INJ) 200 mcg STK-MED ONCE .ROUTE ; Start 09/06/16 at 16:51; Stop 09/06/16 at 16:52; Status DC Morphine Sulfate (Morphine Inj) 8 mg STK-MED ONCE .ROUTE ; Start 09/06/16 at 16: 51; Stop 09/06/16 at 16:52; Status DC Hydroxyzine HCl (*VISTARIL INJ PERIprocedural ONLY) 25 mg STK-MED ONCE IM Last administered on 09/06/16 16:56; Start 09/06/16 at 16:56; Stop 09/06/16 at 16:57 ; Status DC Hydromorphone HCl (*DILAUDID PF INJ PERIprocedural ONLY) 1 mg STK-MED ONCE .ROUTE Last administered on 09/06/16 16:57; Start 09/06/16 at 16:57; Stop at 16:58; Status DC Neomycin/ Polymyxin 2 ml 2 ml STK-MED ONCE IR Last administered on 09/06/16 16 :00; Start 09/06/16 at 16:00; Stop 09/06/16 at 17:48; Status DC Vancomycin HCl/ Sodium Chloride (Vancomycin Inj/ NS 250 ml Inj) 250 ml @ 250 mls/hr Q12H IV Last administered on 09/09/16 01:32; Start 09/07/16 at 12:00; Stop 09/09/16 at 15:15; Status DC Miscellaneous Information SPECIFIC LAB TO BE ... ONCE ONCE XX Last administered on 09/09/16 11:45; Start 09/09/16 at 11:45; Stop 09/09/16 at 11:46 ; Status DC Insulin Human Regular (NovoLIN R SUPPLEMENTAL SCALE) 1 ACHS SLIDING SCALE SQ Last administered on 09/20/16 16:54; Start 09/07/16 at 16:00 Prazosin HCl (Minipress) 2 mg HS PO Last administered on 09/20/16 22:13; Start 09/07/16 at 21:00 Quetiapine Fumarate (SEROquel) 200 mg HS PO Last administered on 09/20/16 22:14 ; Start 09/07/16 at 21:00 Gabapentin (Neurontin) 400 mg BID@09,12 PO Last administered on 09/21/16 11:49 ; Start 09/08/16 at 09:00 Gabapentin (Neurontin) 800 mg HS PO Last administered on 09/20/16 22:13; Start 09/07/16 at 21:00 Insulin Detemir (Levemir Inj) 40 units DAILY SQ ; Start 09/08/16 at 09:00; Stop 09/08/16 at 10:45; Status DC Insulin Detemir 20 units 20 units HS SQ Last administered on 09/07/16 21:49; Start 09/07/16 at 21:00; Stop 09/08/16 at 10:49; Status DC Sodium Chloride (NS 1000 ml Inj) 1,000 ml @ 100 mls/hr Q10H IV Last administered on 09/15/16 03:00; Start 09/07/16 at 15:00; Status Hold Insulin Detemir (Levemir Inj) 10 units Q12HR SQ Last administered on 09/07/16 21:49; Start 09/07/16 at 21:00; Stop 09/08/16 at 10:49; Status DC Calcium Carbonate (Oscal) 500 mg Q12HR PO Last administered on 09/14/16 09:36 ; Start 09/07/16 at 21:00; Stop 09/14/16 at 20:59; Status DC Clindamycin HCl (Cleocin) 450 mg Q6HR PO Last administered on 09/10/16 11:29; Start 09/08/16 at 00:00; Stop 09/10/16 at 13:08; Status DC Bupivacaine HCl (Marcaine Pf 0.5% Inj) 30 ml STK-MED ONCE .ROUTE Last administered on 09/08/16 08:24; Start 09/08/16 at 07:12; Stop 09/08/16 at 07:13 ; Status DC Lidocaine HCl (Xylocaine 1% Inj (50 ml)) 50 ml STK-MED ONCE .ROUTE Last administered on 09/08/16 08:24; Start 09/08/16 at 07:13; Stop 09/08/16 at 07:14 ; Status DC Neomycin/Polymyxin (Neosporin G.u. Irr) 2 ml STK-MED ONCE IR Last administered on 09/08/16 07:18; Start 09/08/16 at 07:18; Stop 09/08/16 at 07:19; Status DC Midazolam HCl (Versed Inj) 2 mg STK-MED ONCE .ROUTE ; Start 09/08/16 at 07:56; Stop 09/08/16 at 07:57; Status DC Fentanyl Citrate (fentaNYL INJ) 250 mcg STK-MED ONCE .ROUTE ; Start 09/08/16 at 07:56; Stop 09/08/16 at 07:57; Status DC Acetaminophen (Ofirmev Inj) 1,000 mg STK-MED ONCE IV ; Start 09/08/16 at 07:56; Stop 09/08/16 at 07:57; Status DC Sugammadex Sodium (Bridion Inj) 200 mg STK-MED ONCE IV PUSH ; Start 09/08/16 at 07:57; Stop 09/08/16 at 07:58; Status DC IV Flush (NS Flush) 2 ml UNSCH PRN IVF FLUSH AFTER USING IV ACCESS; Start 09/08 at 09:00; Stop 09/08/16 at 09:06; Status DC IV Flush (NS Flush) 2 ml BID IVF ; Start 09/08/16 at 09:00; Stop 09/08/16 at 09: 06; Status DC Miscellaneous Information (Post-op Orders (for Pharmacy)) STAT ONCE XX ; Start 09/08/16 at 09:00; Stop 09/08/16 at 09:19; Status DC Hydromorphone HCl (*DILAUDID PF INJ PERIprocedural ONLY) 1 mg STK-MED ONCE .ROUTE Last administered on 09/08/16 09:00; Start 09/08/16 at 09:00; Stop at 09:01; Status DC Morphine Sulfate (Morphine Inj) 4 mg STK-MED ONCE .ROUTE ; Start 09/08/16 at 09: 01; Stop 09/08/16 at 09:02; Status DC Miscellaneous Information ALL NURSING DEPARTME... UNSCH PRN XX SEE LABEL COMMENTS; Start 09/08/16 at 08:55; Stop 09/09/16 at 08:54; Status DC Insulin Detemir (Levemir Inj) 20 units DAILYAC SQ ; Start 09/09/16 at 08:00; Stop 09/09/16 at 11:17; Status DC Insulin Detemir (Levemir Inj) 10 units HS SQ Last administered on 09/20/16 23: 56; Start 09/08/16 at 21:00 Hydromorphone HCl (Dilaudid) 4 mg Q4H PRN PO PAIN SCALE 6 TO 10 Last administered on 09/18/16 17:43; Start 09/08/16 at 14:00 Hydromorphone HCl (Dilaudid) 2 mg Q4H PRN PO pain3-5 Last administered on 08:06; Start 09/08/16 at 13:00 Insulin Detemir (Levemir Inj) 30 units DAILYAC SQ Last administered on 09:37; Start 09/10/16 at 08:00; Stop 09/15/16 at 09:29; Status DC Insulin Aspart 3 units 3 units TIDAC SQ Last administered on 09/13/16 17:54; Start 09/09/16 at 12:00; Status Hold Vancomycin HCl/ Sodium Chloride (Vancomycin Inj/ NS 500 ml Inj) 515 ml @ 257.5 mls/ hr Q12H IV ; Start 09/09/16 at 20:00; Stop 09/09/16 at 20:00; Status DC Miscellaneous Information SPECIFIC LAB TO BE DRAWN:VANCOMYCIN TROUGH DATE TO... ONCE ONCE XX ; Start 09/11/16 at 07:45; Stop 09/11/16 at 07:45; Status DC Fluconazole 200 mg 200 mg DAILY PO Last administered on 09/10/16 09:54; Start 09/09/16 at 18:00; Stop 09/10/16 at 13:07; Status DC Lactated Ringer's 1,000 ml @ 30 mls/hr Q24H IV Last administered on 09/11/16 07:30; Start 09/10/16 at 08:30 Sodium Chloride 500 ml @ 30 mls/hr [id number] IV ; Start 09/10/16 at 08:30; Stop 09/11/16 at 08:29; Status DC Dextrose/Sodium Chloride (D5W-NS 1000 ml Inj) 1,000 ml @ 60 mls/hr [id number] IV Last administered on 09/10/16 11:25; Start 09/10/16 at 11:15; Stop 09/11/16 at 03:54; Status DC Acetaminophen (Tylenol Supp) 325 mg Q4H PRN RECTAL fever >100.4 Last administered on 09/10/16 12:21; Start 09/10/16 at 12:00 Propofol (Diprivan 200 Mg/20 ml Inj) 200 mg STK-MED ONCE IV ; Start 09/06/16 at 12:00; Stop 09/10/16 at 12:53; Status DC Ondansetron HCl 4 mg 4 mg STK-MED ONCE IV PUSH ; Start 09/06/16 at 12:00; Stop 09/10/16 at 12:53; Status DC Lactated Ringer's 1,000 ml @ As Directed STK-MED ONCE IV ; Start 09/06/16 at 12 :00; Stop 09/10/16 at 12:53; Status DC Ceftriaxone Sodium 2000 mg/ Sodium Chloride 100 ml @ 200 mls/hr Q24H IV Last administered on 09/11/16 13:42; Start 09/10/16 at 14:00; Stop 09/12/16 at 08:20 ; Status DC Fluconazole/ Sodium Chloride (Diflucan 400 Mg Premix Bag) 200 ml @ 100 mls/hr Q24H IV Last administered on 09/20/16 14:38; Start 09/10/16 at 15:00 Propofol (Diprivan 200 Mg/20 ml Inj) 200 mg STK-MED ONCE IV ; Start 09/08/16 at 12:00; Stop 09/10/16 at 13:13; Status DC Ondansetron HCl 4 mg 4 mg STK-MED ONCE IV PUSH ; Start 09/08/16 at 12:00; Stop 09/10/16 at 13:13; Status DC Lactated Ringer's (Lr 1000 ml Inj) 1,000 ml @ As Directed STK-MED ONCE IV ; Start 09/08/16 at 12:00; Stop 09/10/16 at 13:13; Status DC Fentanyl Citrate (fentaNYL INJ) 250 mcg STK-MED ONCE .ROUTE ; Start 09/11/16 at 07:05; Stop 09/11/16 at 07:06; Status DC Midazolam HCl (Versed Inj) 2 mg STK-MED ONCE .ROUTE ; Start 09/11/16 at 07:16; Stop 09/11/16 at 07:17; Status DC Midazolam HCl (Versed Inj) 2 mg STK-MED ONCE .ROUTE ; Start 09/11/16 at 07:16; Stop 09/11/16 at 07:17; Status DC Bupivacaine HCl (Marcaine Pf 0.5% Inj) 30 ml STK-MED ONCE .ROUTE Last administered on 09/11/16 08:00; Start 09/11/16 at 07:33; Stop 09/11/16 at 07:34 ; Status DC Lidocaine HCl (Xylocaine-Mpf 2% Inj) 30 ml STK-MED ONCE .ROUTE Last administered on 09/11/16 08:00; Start 09/11/16 at 07:33; Stop 09/11/16 at 07:34 ; Status DC Hydromorphone HCl (*DILAUDID PF INJ PERIprocedural ONLY) 1 mg STK-MED ONCE .ROUTE Last administered on 09/11/16 08:58; Start 09/11/16 at 08:58; Stop at 08:59; Status DC Meperidine HCl (*DEMEROL INJ PERIprocedural ONLY) 25 mg STK-MED ONCE .ROUTE Last administered on 09/11/16 09:05; Start 09/11/16 at 09:05; Stop 09/11/16 at 09:06; Status DC Hydromorphone HCl (*DILAUDID PF INJ PERIprocedural ONLY) 1 mg STK-MED ONCE .ROUTE Last administered on 09/11/16 09:12; Start 09/11/16 at 09:12; Stop at 09:13; Status DC Miscellaneous Information ALL NURSING DEPARTME... UNSCH PRN XX SEE LABEL COMMENTS; Start 09/11/16 at 08:49; Stop 09/12/16 at 08:48; Status DC Hydroxyzine HCl (*VISTARIL INJ PERIprocedural ONLY) 25 mg STK-MED ONCE IM Last administered on 09/11/16 09:12; Start 09/11/16 at 09:12; Stop 09/11/16 at 09:13 ; Status DC Insulin Detemir (Levemir Inj) 20 units NOW ONCE SQ Last administered on 12:34; Start 09/11/16 at 11:15; Stop 09/11/16 at 11:16; Status DC Neomycin/Polymyxin (Neosporin G.u. Irr) 1 ml STK-MED ONCE IR Last administered on 09/11/16 08:00; Start 09/11/16 at 08:00; Stop 09/11/16 at 12:34; Status DC Hydromorphone HCl 1 mg 1 mg ONCE ONCE IV PUSH Last administered on 09/12/16 00:35; Start 09/12/16 at 00:00; Stop 09/12/16 at 00:03; Status DC Cefepime HCl 2000 mg/Sodium Chloride 100 ml @ 200 mls/hr Q8H IV Last administered on 09/16/16 08:32; Start 09/12/16 at 10:00; Stop 09/16/16 at 14:09 ; Status DC Pharmacy Profile Note 0 ml @ 0 mls/hr UNSCH OTHER ; Start 09/12/16 at 08:30; Stop 09/17/16 at 19:26; Status DC Vancomycin HCl/ Sodium Chloride (Vancomycin Inj/ NS 500 ml Inj) 515 ml @ 250 mls/hr Q12H IV Last administered on 09/17/16 11:18; Start 09/12/16 at 12:00; Stop 09/17/16 at 19:26; Status DC Miscellaneous Information SPECIFIC LAB TO BE DRAWN:VANCOMYCIN TROUGH DATE TO... ONCE ONCE XX ; Start 09/14/16 at 11:45; Stop 09/14/16 at 11:46; Status DC Propofol (Diprivan 200 Mg/20 ml Inj) 200 mg STK-MED ONCE IV ; Start 09/11/16 at 10:45; Stop 09/12/16 at 10:45; Status DC Neostigmine Methylsulfate (Prostigmin Inj) 3 mg STK-MED ONCE IV ; Start at 10:45; Stop 09/12/16 at 10:45; Status DC Ondansetron HCl (Zofran Inj) 4 mg STK-MED ONCE IV PUSH ; Start 09/11/16 at 10:45 ; Stop 09/12/16 at 10:45; Status DC Miscellaneous Information SPECIFIC LAB TO BE DRAWN:VANCOMYCIN TROUGH DATE TO... ONCE ONCE XX Last administered on 09/14/16 23:45; Start 09/14/16 at 23:45; Stop 09/14/16 at 23:46; Status DC Insulin Detemir (Levemir Inj) 26 units DAILYAC SQ Last administered on 09:00; Start 09/16/16 at 08:00; Stop 09/17/16 at 11:47; Status DC Acetaminophen 650 mg 650 mg Q4H PRN PO SEE LABEL COMMENTS Last administered on 09/16/16 03:35; Start 09/16/16 at 03:30; Stop 09/16/16 at 07:32; Status DC Aztreonam/Sodium Chloride (Azactam Inj/NS Inj) 100 ml @ 200 mls/hr Q8H IV Last administered on 09/17/16 18:00; Start 09/16/16 at 15:00; Stop 09/17/16 at 19:27; Status DC Insulin Detemir (Levemir Inj) 24 units DAILYAC SQ ; Start 09/18/16 at 08:00; Stop 09/18/16 at 11:24; Status DC Miscellaneous Information SPECIFIC LAB TO BE DRAWN:VANCOMYCIN TROUGH DATE TO... ONCE ONCE XX ; Start 09/18/16 at 11:45; Stop 09/18/16 at 11:46; Status Cancel Cefoxitin Sodium/ Sodium Chloride (Mefoxin Inj/NS Inj) 100 ml @ 200 mls/hr Q6H IV Last administered on 09/21/16 11:49; Start 09/17/16 at 23:00 Clarithromycin (Biaxin) 250 mg Q12HR PO Last administered on 09/21/16 10:10; Start 09/17/16 at 21:00 Miscellaneous Medication (ASP Crit: Other exception documentation) 1 UNSCH X1 PRN XX PHARMACY DOCUMENTATION; Start 09/17/16 at 19:30; Stop 09/18/16 at 19:29; Status DC Miscellaneous Medication 1 1 UNSCH X1 PRN XX PHARMACY DOCUMENTATION; Start at 19:30; Stop 09/18/16 at 19:29; Status DC Meropenem/Sodium Chloride (Merrem Inj/NS Inj) 100 ml @ 200 mls/hr Q8H IV Last administered on 09/21/16 07:56; Start 09/17/16 at 22:00 Insulin Detemir (Levemir Inj) 20 units DAILYAC SQ Last administered on 08:51; Start 09/19/16 at 08:00 A/P Assessment and Plan A/p - Sepsis with Infected diabetic left foot gangrene/necrotizing fasciitis status post I&D- with recurrent fever and positive blood culture for AFB Abx per ID; started on Meropenem, Cefoxitin, Biaxin and Diflucan repeated blood cultures negative. cleared by podiatry for discharge. - Acute increase in transaminitis- will monitor LFT's-abdominal sonogram with mildly enlarged liver and minimal ascites. - Acute on chronic anemia-s/p PRBC transfusion- will monitor H/H -diabetes mellitus with hypoglycemic episode with no further recurrence; continue long-acting insulin and continue accu-check with SSI- continue to hold AC novolog. - Chronic pain syndrome with neck surgery in the past; continue with pain control; suspicious for drug-seeking behavior; will gradually decrease the dose of Dilaudid and Xanax . - History of IV drug abuse in the past . -diarrhea; stool for c-diff. pending. -nausea/ vomiting; improved- antiemetics as needed. -DVT prophylaxis with subq Heparin. Discharge Planning not ready for discharge. Uzair Rodriguez MD Sep 21, 2016 12:53
[2016-09-21] MEDS: FLUCONAZOLE 400 MG PREMIX BAG 200 ML IV SCH (15:28)
[2016-09-21] MEDS: HYDROmorphone HCL PF 1 MG/ML VIAL IV PUSH PRN ×2 (17:02→20:49)
[2016-09-21] MEDS: PRAZOSIN HCL 2 MG CAP PO SCH (20:31)
[2016-09-21] MEDS: QUEtiapine FUMARATE 200 MG TAB PO SCH (20:41)
[2016-09-21] MEDS: SODIUM CHLORIDE 0.9% FLUSH 5 ML FLUSH FLUSH PRN (20:47)
[2016-09-22] VITALS (7 sets, daily range): BP systolic 106–143; BP diastolic 59–80; PULSE 76–98; RESP 16–24; TEMP 97.9–99.4; O2SAT 96–99
[2016-09-22] MEDS: SODIUM CHLORIDE 0.9% FLUSH 5 ML FLUSH FLUSH SCH ×3 (00:42→20:21)
[2016-09-22] MEDS: MEROPENEM INJ 1,000 MG in SODIUM CHLORIDE 0.9% INJ 100 ML IV SCH ×4 (00:44→22:45)
[2016-09-22] MEDS: HYDROmorphone HCL 2 MG TAB PO PRN ×5 (00:44→20:35)
[2016-09-22] MEDS: ceFOXitin INJ 2 GM in SODIUM CHLORIDE 0.9% INJ 100 ML IV SCH ×5 (00:44→22:17)
[2016-09-22] MEDS: HEPARIN SODIUM - SQ 10,000 UNITS/ML VIAL SQ SCH ×2 (02:45→16:30)
[2016-09-22] MEDS: INSULIN NovoLIN REGULAR SUPPLEMENTAL SCALE SQ SCH ×4 (04:51→20:34)
--- NOTE | 2016-09-22 08:01 | HHI.PR ---
Subjective Remarks in no acute distress. remains afebrile. asking for ' more pain medications'. however d/w the RN and reportedly she looked comfortable and slept well last night. Objective Vitals Vital Signs Date Time Temp Pulse Resp B/P Pulse Ox O2 Delivery O2 Flow Rate FiO2 09/22/16 04:55 99.4 94 17 106/59 99 09/22/16 01:44 16 09/22/16 00:55 98.1 98 18 109/60 97 09/21/16 21:00 97.8 98 19 116/68 99 09/21/16 20:33 99.2 95 16 114/63 100 09/21/16 17:32 20 09/21/16 16:45 20 09/21/16 16:37 98.2 93 20 100/61 98 09/21/16 12:00 96.8 105 20 102/52 97 09/21/16 11:19 99 09/21/16 08:00 97.2 95 20 117/57 99 I/O 09/21/16 09/21/16 09/21/16 09/22/16 09/22/16 09/22/16 07:00 15:00 23:00 07:00 15:00 23:00 Intake Total 900 ml 450 ml 240 ml Output Total 0 ml Balance 900 ml 450 ml 240 ml Intake Oral 900 ml 450 ml 240 ml Output Urine Total 0 ml # Voids 1 # Bowel Movements 0 1 Result Diagram: 09/21/16 0713 Imaging Last Impressions Liver Ultrasound 09/16/16 0000 Signed Impressions: Service Date/Time: Friday, September 16, 2016 10:51 - CONCLUSION: 1. Liver is mildly enlarged. 2. Status post cholecystectomy. 3. Minimal ascites. Marcell Courtney MD Chest X-Ray 09/16/16 0000 Signed Impressions: Service Date/Time: Friday, September 16, 2016 05:38 - CONCLUSION: 1. Subsegmental atelectasis the left lung base. Right lung clear. Morales Rey MD Lower Extremity Ultrasound 09/12/16 0000 Signed Impressions: Service Date/Time: August 17:55 - CONCLUSION: Negative for DVT. Nonspecific left groin lymph nodes Francois Boothe MD Foot MRI 09/06/16 0000 Signed Impressions: Service Date/Time: Tuesday, September 06, 2016 11:35 - CONCLUSION: Significant abnormality on the medial side of the foot with abnormal signal in the tarsal navicular and first cuneiform. Gonzalo Sears MD FACR Foot X-Ray 09/05/16 0000 Signed Impressions: Service Date/Time: August 23:39 - CONCLUSION: 1. There is no evidence of acute fracture. 2. Soft tissue swelling is present with gas in the soft tissues. No plain film findings of osteomyelitis. If there is necessity for further evaluation contrast-enhanced MRI is recommended. Gaurav Parks MD Ankle X-Ray 09/05/16 0000 Signed Impressions: Service Date/Time: August 23:36 - CONCLUSION: 1. There is no evidence of acute fracture. Gaurav Parks MD Objective Remarks GENERAL: This is a well-nourished, well-developed patient, in no apparent distress. CARDIOVASCULAR: Regular rate and regular rhythm without murmurs, gallops, or rubs. RESPIRATORY: Clear to auscultation. Breath sounds equal bilaterally. No wheezes , rales, or rhonchi. GASTROINTESTINAL: Abdomen soft, non-tender, nondistended. Normal, active bowel sounds MUSCULOSKELETAL: left foot covered with clean dressing. NEURO: Alert & Oriented x4 to person, place, time, situation. Moves all ext x4 Procedures central line placement I/D left foot/ ankle with wound vac placement Medications and IVs Current Medications Sodium Chloride 1,000 ml @ 2,000 mls/hr Q30M ONCE IV Last administered on 09/05 23:55; Start 09/05/16 at 23:22; Stop 09/05/16 at 23:51; Status DC Sodium Chloride (NS 1000 ml Inj) 1,000 ml @ 2,000 mls/hr Q30M ONCE IV Last administered on 09/06/16 00:40; Start 09/05/16 at 23:52; Stop 09/06/16 at 00:21 ; Status DC IV Flush 2 ml 2 ml UNSCH PRN IVF FLUSH AFTER USING IV ACCESS; Start 09/05/16 at 23:30; Stop 09/06/16 at 02:17; Status DC Vancomycin HCl 1000 mg/Sodium Chloride 250 ml @ 250 mls/hr ONCE ONCE IV Last administered on 09/06/16 05:02; Start 09/05/16 at 23:30; Stop 09/06/16 at 00:29 ; Status DC Clindamycin Phosphate/Sodium Chloride (Cleocin Inj/NS Inj) 106 ml @ 212 mls/hr ONCE ONCE IV Last administered on 09/06/16 01:46; Start 09/06/16 at 00:45; Stop 09/06/16 at 01:14; Status DC Insulin Human Regular (NovoLIN R INJ) 7 units ONCE ONCE IV PUSH Last administered on 09/06/16 01:09; Start 09/06/16 at 00:45; Stop 09/06/16 at 00:46 ; Status DC Ondansetron HCl (Zofran Inj) 4 mg ONCE ONCE IV PUSH Last administered on 01:46; Start 09/06/16 at 01:45; Stop 09/06/16 at 01:46; Status DC Hydromorphone HCl 0.5 mg 0.5 mg ONCE ONCE IV PUSH Last administered on 01:46; Start 09/06/16 at 01:45; Stop 09/06/16 at 01:46; Status DC Piperacillin Sod/ Tazobactam Sod 50 ml @ 100 mls/hr ONCE ONCE IV Last administered on 09/06/16 02:27; Start 09/06/16 at 02:00; Stop 09/06/16 at 02:29 ; Status DC Sodium Chloride (NS 1000 ml Inj) 1,000 ml @ 999 mls/hr BOLUS ONCE IV Last administered on 09/06/16 02:17; Start 09/06/16 at 02:00; Stop 09/06/16 at 03:00 ; Status DC IV Flush (NS Flush) 2 ml BID IVF ; Start 09/06/16 at 09:00; Stop 09/06/16 at 09: 00; Status DC IV Flush (NS Flush) 2 ml UNSCH PRN IVF FLUSH AFTER USING IV ACCESS; Start 09/06 at 02:15; Stop 09/06/16 at 02:54; Status DC Hydromorphone HCl 0.5 mg 0.5 mg ONCE ONCE IV PUSH Last administered on 02:33; Start 09/06/16 at 02:30; Stop 09/06/16 at 02:31; Status DC Potassium Chloride/Dextrose/ Sod Cl 1,000 ml @ 125 mls/hr Q8H IV ; Start at 02:30; Stop 09/06/16 at 03:17; Status DC Sodium Chloride (NS 1000 ml Inj) 1,000 ml @ 100 mls/hr Q10H IV Last administered on 09/06/16 05:53; Start 09/06/16 at 02:45; Stop 09/06/16 at 10:19 ; Status DC IV Flush (NS Flush) 2 ml UNSCH PRN FLUSH FLUSH AFTER USING IV ACCESS Last administered on 09/21/16 20:47; Start 09/06/16 at 02:45 IV Flush (NS Flush) 2 ml BID FLUSH Last administered on 09/22/16 00:42; Start 09/06/16 at 09:00 Acetaminophen (Tylenol) 650 mg Q4H PRN PO TEMP > 100.4 Last administered on 19:58; Start 09/06/16 at 02:45 Ondansetron HCl (Zofran Inj) 4 mg Q6H PRN IVP NAUSEA OR VOMITING Last administered on 09/20/16 11:47; Start 09/06/16 at 02:45 Sennosides (Senokot) 17.2 mg Q12H PRN PO CONSTIPATION; Start 09/06/16 at 02:45 Heparin Sodium (Porcine) (Heparin Inj) 5,000 units Q12H SQ Last administered on 09/21/16 15:28; Start 09/06/16 at 02:45 Naloxone HCl 0.4 mg 0.4 mg UNSCH PRN IV SEE LABEL COMMENTS; Start 09/06/16 at 02:45 Pharmacy Profile Note 0 ml @ 0 mls/hr UNSCH OTHER ; Start 09/06/16 at 02:45; Stop 09/06/16 at 09:07; Status DC Piperacillin Sod/ Tazobactam Sod (Zosyn 3.375 Gm Premix) 50 ml @ 100 mls/hr Q6H IV Last administered on 09/10/16 09:54; Start 09/06/16 at 09:00; Stop at 13:07; Status DC Dextrose (D50w (Vial) Inj) 25 ml UNSCH PRN IV PUSH HYPOGLYCEMIA-SEE COMMENTS Last administered on 09/14/16 18:39; Start 09/06/16 at 02:45 Glucagon (Glucagon Inj) 1 mg UNSCH PRN OTHER HYPOGLYCEMIA-SEE COMMENTS Last administered on 09/06/16 10:42; Start 09/06/16 at 02:45 Insulin Aspart (NovoLOG SUPPLEMENTAL SCALE) 1 ACHS SLIDING SCALE SQ Last administered on 09/07/16 05:28; Start 09/06/16 at 07:00; Stop 09/07/16 at 13:17 ; Status DC Dextrose (D50w (Syr) Inj) 25 ml ONCE ONCE IV ; Start 09/06/16 at 03:45; Stop at 03:46; Status Cancel Dextrose 25 ml 25 ml ONCE ONCE IV Last administered on 09/06/16 03:54; Start 09/06/16 at 04:00; Stop 09/06/16 at 04:01; Status DC Vancomycin HCl/ Sodium Chloride (Vancomycin Inj/ NS 500 ml Inj) 515 ml @ 257.5 mls/ hr Q24H IV ; Start 09/06/16 at 22:00; Stop 09/07/16 at 11:00; Status DC Miscellaneous Information SPECIFIC LAB TO BE LEANDRO... ONCE ONCE XX ; Start at 21:45; Stop 09/08/16 at 21:46; Status Cancel Hydromorphone HCl 1 mg 1 mg ONCE ONCE IV PUSH Last administered on 09/06/16 05:07; Start 09/06/16 at 05:00; Stop 09/06/16 at 05:01; Status DC Pharmacy Profile Note (Vancomycin Consult Pharmacy) 0 ml @ 0 mls/hr UNSCH OTHER ; Start 09/06/16 at 09:15; Stop 09/09/16 at 17:49; Status DC Dextrose (D25w Inj) 10 ml ONCE ONCE IV PUSH ; Start 09/06/16 at 10:00; Stop at 10:03; Status DC Hydromorphone HCl 0.5 mg 0.5 mg Q4H PRN IV PUSH BREAKTHROUGH PAIN Last administered on 09/21/16 20:49; Start 09/06/16 at 10:00 Levofloxacin/ Dextrose (Levaquin 500 Mg Premix Inj) 100 ml @ 100 mls/hr Q24H IV Last administered on 09/07/16 10:00; Start 09/06/16 at 10:00; Stop at 23:49; Status DC Alprazolam (Xanax) 2 mg Q6H PRN PO ANXIETY Last administered on 09/21/16 08:15 ; Start 09/06/16 at 10:00; Stop 09/21/16 at 12:51; Status DC Carbamazepine (TEGretol) 200 mg BID PO Last administered on 09/21/16 20:31; Start 09/06/16 at 21:00 Carisoprodol (Soma) 350 mg QID PRN PO MUSCLE SPASM Last administered on 20:31; Start 09/06/16 at 10:00 Gabapentin (Neurontin) 600 mg Q12HR PO Last administered on 09/07/16 09:07; Start 09/06/16 at 21:00; Stop 09/07/16 at 14:06; Status DC Hydromorphone HCl (Dilaudid) 4 mg Q6H PRN PO PAIN SCALE 1 TO 10 Last administered on 09/08/16 10:12; Start 09/06/16 at 10:00; Stop 09/08/16 at 12:55 ; Status DC Prazosin HCl (Minipress) 1 mg DAILY PO ; Start 09/07/16 at 09:00; Stop 09/07/16 at 14:03; Status DC Promethazine HCl (Phenergan) 25 mg Q6H PRN PO Nausea/Vomiting Last administered on 09/10/16 12:53; Start 09/06/16 at 10:00 Quetiapine Fumarate (SEROquel) 200 mg DAILY PO ; Start 09/07/16 at 09:00; Stop 09/07/16 at 14:05; Status DC Ropinirole HCl 2 mg 2 mg HS PO Last administered on 09/21/16 20:47; Start 09/06 at 21:00 Dextrose/Sodium Chloride 1,000 ml @ 100 mls/hr Q10H IV Last administered on 01:28; Start 09/06/16 at 10:19; Stop 09/07/16 at 14:22; Status DC Lactated Ringer's 1,000 ml @ 30 mls/hr Q24H IV ; Start 09/06/16 at 13:15; Stop 09/06/16 at 16:55; Status DC Sodium Chloride (NS 500 ml Inj) 500 ml @ 30 mls/hr [id number] IV ; Start 09/06/16 at 13:15; Stop 09/07/16 at 13:14; Status DC Insulin Human Regular (NovoLIN R INJ) See Protocol Table ... UNSCH X1 PRN SQ SEE PROTOCOL; Start 09/06/16 at 13:15; Stop 09/06/16 at 16:55; Status DC Metoprolol Tartrate (Lopressor) 25 mg UNSCH X1 PRN PO SEE LABEL COMMENTS; Start 09/06/16 at 13:15; Stop 09/06/16 at 16:55; Status DC Bupivacaine HCl (Marcaine Pf 0.25% Inj) 30 ml STK-MED ONCE .ROUTE ; Start at 13:12; Stop 09/06/16 at 13:13; Status DC Lidocaine HCl (Xylocaine 1% Inj (50 ml)) 50 ml STK-MED ONCE .ROUTE Last administered on 09/06/16t 15:49; Start 09/06/16 at 13:12; Stop 09/06/16 at 13:13 ; Status DC Bupivacaine HCl (Marcaine Pf 0.5% Inj) 30 ml STK-MED ONCE .ROUTE Last administered on 09/06/16t 15:49; Start 09/06/16 at 14:54; Stop 09/06/16 at 14:55 ; Status DC Midazolam HCl (Versed Inj) 4 mg STK-MED ONCE .ROUTE ; Start 09/06/16 at 15:48; Stop 09/06/16 at 15:49; Status DC Fentanyl Citrate (fentaNYL INJ) 250 mcg STK-MED ONCE .ROUTE ; Start 09/06/16 at 15:48; Stop 09/06/16 at 15:49; Status DC IV Flush (NS Flush) 2 ml UNSCH PRN IVF FLUSH AFTER USING IV ACCESS; Start 09/06 at 16:45; Stop 09/06/16 at 16:56; Status DC IV Flush (NS Flush) 2 ml BID IVF ; Start 09/06/16 at 21:00; Stop 09/06/16 at 21: 00; Status DC Miscellaneous Information (Post-op Orders (for Pharmacy)) STAT ONCE XX ; Start 09/06/16 at 16:45; Stop 09/06/16 at 16:54; Status DC Hydromorphone HCl (*DILAUDID PF INJ PERIprocedural ONLY) 1 mg STK-MED ONCE .ROUTE Last administered on 09/06/16 16:41; Start 09/06/16 at 16:41; Stop at 16:42; Status DC Hydromorphone HCl (*DILAUDID PF INJ PERIprocedural ONLY) 1 mg STK-MED ONCE .ROUTE Last administered on 09/06/16 16:48; Start 09/06/16 at 16:48; Stop at 16:49; Status DC Midazolam HCl (Versed Inj) 4 mg STK-MED ONCE .ROUTE ; Start 09/06/16 at 16:51; Stop 09/06/16 at 16:52; Status DC Fentanyl Citrate (fentaNYL INJ) 500 mcg STK-MED ONCE .ROUTE ; Start 09/06/16 at 16:51; Stop 09/06/16 at 16:52; Status DC Fentanyl Citrate (fentaNYL INJ) 200 mcg STK-MED ONCE .ROUTE ; Start 09/06/16 at 16:51; Stop 09/06/16 at 16:52; Status DC Morphine Sulfate (Morphine Inj) 8 mg STK-MED ONCE .ROUTE ; Start 09/06/16 at 16: 51; Stop 09/06/16 at 16:52; Status DC Hydroxyzine HCl (*VISTARIL INJ PERIprocedural ONLY) 25 mg STK-MED ONCE IM Last administered on 09/06/16 16:56; Start 09/06/16 at 16:56; Stop 09/06/16 at 16:57 ; Status DC Hydromorphone HCl (*DILAUDID PF INJ PERIprocedural ONLY) 1 mg STK-MED ONCE .ROUTE Last administered on 09/06/16 16:57; Start 09/06/16 at 16:57; Stop at 16:58; Status DC Neomycin/ Polymyxin 2 ml 2 ml STK-MED ONCE IR Last administered on 09/06/16 16 :00; Start 09/06/16 at 16:00; Stop 09/06/16 at 17:48; Status DC Vancomycin HCl/ Sodium Chloride (Vancomycin Inj/ NS 250 ml Inj) 250 ml @ 250 mls/hr Q12H IV Last administered on 09/09/16 01:32; Start 09/07/16 at 12:00; Stop 09/09/16 at 15:15; Status DC Miscellaneous Information SPECIFIC LAB TO BE LEANDRO... ONCE ONCE XX Last administered on 09/09/16 11:45; Start 09/09/16 at 11:45; Stop 09/09/16 at 11:46 ; Status DC Insulin Human Regular (NovoLIN R SUPPLEMENTAL SCALE) 1 ACHS SLIDING SCALE SQ Last administered on 09/20/16 16:54; Start 09/07/16 at 16:00 Prazosin HCl (Minipress) 2 mg HS PO Last administered on 09/21/16 20:31; Start 09/07/16 at 21:00 Quetiapine Fumarate (SEROquel) 200 mg HS PO Last administered on 09/21/16 20:41 ; Start 09/07/16 at 21:00 Gabapentin (Neurontin) 400 mg BID@09,12 PO Last administered on 09/21/16 11:49 ; Start 09/08/16 at 09:00 Gabapentin (Neurontin) 800 mg HS PO Last administered on 09/21/16 20:31; Start 09/07/16 at 21:00 Insulin Detemir (Levemir Inj) 40 units DAILY SQ ; Start 09/08/16 at 09:00; Stop 09/08/16 at 10:45; Status DC Insulin Detemir 20 units 20 units HS SQ Last administered on 09/07/16 21:49; Start 09/07/16 at 21:00; Stop 09/08/16 at 10:49; Status DC Sodium Chloride (NS 1000 ml Inj) 1,000 ml @ 100 mls/hr Q10H IV Last administered on 09/15/16 03:00; Start 09/07/16 at 15:00; Status Hold Insulin Detemir (Levemir Inj) 10 units Q12HR SQ Last administered on 09/07/16 21:49; Start 09/07/16 at 21:00; Stop 09/08/16 at 10:49; Status DC Calcium Carbonate (Oscal) 500 mg Q12HR PO Last administered on 09/14/16 09:36 ; Start 09/07/16 at 21:00; Stop 09/14/16 at 20:59; Status DC Clindamycin HCl (Cleocin) 450 mg Q6HR PO Last administered on 09/10/16 11:29; Start 09/08/16 at 00:00; Stop 09/10/16 at 13:08; Status DC Bupivacaine HCl (Marcaine Pf 0.5% Inj) 30 ml STK-MED ONCE .ROUTE Last administered on 09/08/16 08:24; Start 09/08/16 at 07:12; Stop 09/08/16 at 07:13 ; Status DC Lidocaine HCl (Xylocaine 1% Inj (50 ml)) 50 ml STK-MED ONCE .ROUTE Last administered on 09/08/16 08:24; Start 09/08/16 at 07:13; Stop 09/08/16 at 07:14 ; Status DC Neomycin/Polymyxin (Neosporin G.u. Irr) 2 ml STK-MED ONCE IR Last administered on 09/08/16 07:18; Start 09/08/16 at 07:18; Stop 09/08/16 at 07:19; Status DC Midazolam HCl (Versed Inj) 2 mg STK-MED ONCE .ROUTE ; Start 09/08/16 at 07:56; Stop 09/08/16 at 07:57; Status DC Fentanyl Citrate (fentaNYL INJ) 250 mcg STK-MED ONCE .ROUTE ; Start 09/08/16 at 07:56; Stop 09/08/16 at 07:57; Status DC Acetaminophen (Ofirmev Inj) 1,000 mg STK-MED ONCE IV ; Start 09/08/16 at 07:56; Stop 09/08/16 at 07:57; Status DC Sugammadex Sodium (Bridion Inj) 200 mg STK-MED ONCE IV PUSH ; Start 09/08/16 at 07:57; Stop 09/08/16 at 07:58; Status DC IV Flush (NS Flush) 2 ml UNSCH PRN IVF FLUSH AFTER USING IV ACCESS; Start 09/08 at 09:00; Stop 09/08/16 at 09:06; Status DC IV Flush (NS Flush) 2 ml BID IVF ; Start 09/08/16 at 09:00; Stop 09/08/16 at 09: 06; Status DC Miscellaneous Information (Post-op Orders (for Pharmacy)) STAT ONCE XX ; Start 09/08/16 at 09:00; Stop 09/08/16 at 09:19; Status DC Hydromorphone HCl (*DILAUDID PF INJ PERIprocedural ONLY) 1 mg STK-MED ONCE .ROUTE Last administered on 09/08/16 09:00; Start 09/08/16 at 09:00; Stop at 09:01; Status DC Morphine Sulfate (Morphine Inj) 4 mg STK-MED ONCE .ROUTE ; Start 09/08/16 at 09: 01; Stop 09/08/16 at 09:02; Status DC Miscellaneous Information ALL NURSING DEPARTME... UNSCH PRN XX SEE LABEL COMMENTS; Start 09/08/16 at 08:55; Stop 09/09/16 at 08:54; Status DC Insulin Detemir (Levemir Inj) 20 units DAILYAC SQ ; Start 09/09/16 at 08:00; Stop 09/09/16 at 11:17; Status DC Insulin Detemir (Levemir Inj) 10 units HS SQ Last administered on 09/20/16 23: 56; Start 09/08/16 at 21:00 Hydromorphone HCl (Dilaudid) 4 mg Q4H PRN PO PAIN SCALE 6 TO 10 Last administered on 09/18/16 17:43; Start 09/08/16 at 14:00; Stop 09/21/16 at 12:51; Status DC Hydromorphone HCl (Dilaudid) 2 mg Q4H PRN PO PAIN 4-10 Last administered on 09/22 00:44; Start 09/08/16 at 13:00 Insulin Detemir (Levemir Inj) 30 units DAILYAC SQ Last administered on 09:37; Start 09/10/16 at 08:00; Stop 09/15/16 at 09:29; Status DC Insulin Aspart 3 units 3 units TIDAC SQ Last administered on 09/13/16 17:54; Start 09/09/16 at 12:00; Status Hold Vancomycin HCl/ Sodium Chloride (Vancomycin Inj/ NS 500 ml Inj) 515 ml @ 257.5 mls/ hr Q12H IV ; Start 09/09/16 at 20:00; Stop 09/09/16 at 20:00; Status DC Miscellaneous Information SPECIFIC LAB TO BE DRAWN:VANCOMYCIN TROUGH DATE TO... ONCE ONCE XX ; Start 09/11/16 at 07:45; Stop 09/11/16 at 07:45; Status DC Fluconazole 200 mg 200 mg DAILY PO Last administered on 09/10/16 09:54; Start 09/09/16 at 18:00; Stop 09/10/16 at 13:07; Status DC Lactated Ringer's 1,000 ml @ 30 mls/hr Q24H IV Last administered on 09/11/16 07:30; Start 09/10/16 at 08:30 Sodium Chloride 500 ml @ 30 mls/hr [id number] IV ; Start 09/10/16 at 08:30; Stop 09/11/16 at 08:29; Status DC Dextrose/Sodium Chloride (D5W-NS 1000 ml Inj) 1,000 ml @ 60 mls/hr [id number] IV Last administered on 09/10/16 11:25; Start 09/10/16 at 11:15; Stop 09/11/16 at 03:54; Status DC Acetaminophen (Tylenol Supp) 325 mg Q4H PRN RECTAL fever >100.4 Last administered on 09/10/16 12:21; Start 09/10/16 at 12:00 Propofol (Diprivan 200 Mg/20 ml Inj) 200 mg STK-MED ONCE IV ; Start 09/06/16 at 12:00; Stop 09/10/16 at 12:53; Status DC Ondansetron HCl 4 mg 4 mg STK-MED ONCE IV PUSH ; Start 09/06/16 at 12:00; Stop 09/10/16 at 12:53; Status DC Lactated Ringer's 1,000 ml @ As Directed STK-MED ONCE IV ; Start 09/06/16 at 12 :00; Stop 09/10/16 at 12:53; Status DC Ceftriaxone Sodium 2000 mg/ Sodium Chloride 100 ml @ 200 mls/hr Q24H IV Last administered on 09/11/16 13:42; Start 09/10/16 at 14:00; Stop 09/12/16 at 08:20 ; Status DC Fluconazole/ Sodium Chloride (Diflucan 400 Mg Premix Bag) 200 ml @ 100 mls/hr Q24H IV Last administered on 09/21/16 15:28; Start 09/10/16 at 15:00 Propofol (Diprivan 200 Mg/20 ml Inj) 200 mg STK-MED ONCE IV ; Start 09/08/16 at 12:00; Stop 09/10/16 at 13:13; Status DC Ondansetron HCl 4 mg 4 mg STK-MED ONCE IV PUSH ; Start 09/08/16 at 12:00; Stop 09/10/16 at 13:13; Status DC Lactated Ringer's (Lr 1000 ml Inj) 1,000 ml @ As Directed STK-MED ONCE IV ; Start 09/08/16 at 12:00; Stop 09/10/16 at 13:13; Status DC Fentanyl Citrate (fentaNYL INJ) 250 mcg STK-MED ONCE .ROUTE ; Start 09/11/16 at 07:05; Stop 09/11/16 at 07:06; Status DC Midazolam HCl (Versed Inj) 2 mg STK-MED ONCE .ROUTE ; Start 09/11/16 at 07:16; Stop 09/11/16 at 07:17; Status DC Midazolam HCl (Versed Inj) 2 mg STK-MED ONCE .ROUTE ; Start 09/11/16 at 07:16; Stop 09/11/16 at 07:17; Status DC Bupivacaine HCl (Marcaine Pf 0.5% Inj) 30 ml STK-MED ONCE .ROUTE Last administered on 09/11/16 08:00; Start 09/11/16 at 07:33; Stop 09/11/16 at 07:34 ; Status DC Lidocaine HCl (Xylocaine-Mpf 2% Inj) 30 ml STK-MED ONCE .ROUTE Last administered on 09/11/16 08:00; Start 09/11/16 at 07:33; Stop 09/11/16 at 07:34 ; Status DC Hydromorphone HCl (*DILAUDID PF INJ PERIprocedural ONLY) 1 mg STK-MED ONCE .ROUTE Last administered on 09/11/16 08:58; Start 09/11/16 at 08:58; Stop at 08:59; Status DC Meperidine HCl (*DEMEROL INJ PERIprocedural ONLY) 25 mg STK-MED ONCE .ROUTE Last administered on 09/11/16 09:05; Start 09/11/16 at 09:05; Stop 09/11/16 at 09:06; Status DC Hydromorphone HCl (*DILAUDID PF INJ PERIprocedural ONLY) 1 mg STK-MED ONCE .ROUTE Last administered on 09/11/16 09:12; Start 09/11/16 at 09:12; Stop at 09:13; Status DC Miscellaneous Information ALL NURSING DEPARTME... UNSCH PRN XX SEE LABEL COMMENTS; Start 09/11/16 at 08:49; Stop 09/12/16 at 08:48; Status DC Hydroxyzine HCl (*VISTARIL INJ PERIprocedural ONLY) 25 mg STK-MED ONCE IM Last administered on 09/11/16 09:12; Start 09/11/16 at 09:12; Stop 09/11/16 at 09:13 ; Status DC Insulin Detemir (Levemir Inj) 20 units NOW ONCE SQ Last administered on 12:34; Start 09/11/16 at 11:15; Stop 09/11/16 at 11:16; Status DC Neomycin/Polymyxin (Neosporin G.u. Irr) 1 ml STK-MED ONCE IR Last administered on 09/11/16 08:00; Start 09/11/16 at 08:00; Stop 09/11/16 at 12:34; Status DC Hydromorphone HCl 1 mg 1 mg ONCE ONCE IV PUSH Last administered on 09/12/16 00:35; Start 09/12/16 at 00:00; Stop 09/12/16 at 00:03; Status DC Cefepime HCl 2000 mg/Sodium Chloride 100 ml @ 200 mls/hr Q8H IV Last administered on 09/16/16 08:32; Start 09/12/16 at 10:00; Stop 09/16/16 at 14:09 ; Status DC Pharmacy Profile Note 0 ml @ 0 mls/hr UNSCH OTHER ; Start 09/12/16 at 08:30; Stop 09/17/16 at 19:26; Status DC Vancomycin HCl/ Sodium Chloride (Vancomycin Inj/ NS 500 ml Inj) 515 ml @ 250 mls/hr Q12H IV Last administered on 09/17/16 11:18; Start 09/12/16 at 12:00; Stop 09/17/16 at 19:26; Status DC Miscellaneous Information SPECIFIC LAB TO BE DRAWN:VANCOMYCIN TROUGH DATE TO... ONCE ONCE XX ; Start 09/14/16 at 11:45; Stop 09/14/16 at 11:46; Status DC Propofol (Diprivan 200 Mg/20 ml Inj) 200 mg STK-MED ONCE IV ; Start 09/11/16 at 10:45; Stop 09/12/16 at 10:45; Status DC Neostigmine Methylsulfate (Prostigmin Inj) 3 mg STK-MED ONCE IV ; Start at 10:45; Stop 09/12/16 at 10:45; Status DC Ondansetron HCl (Zofran Inj) 4 mg STK-MED ONCE IV PUSH ; Start 09/11/16 at 10:45 ; Stop 09/12/16 at 10:45; Status DC Miscellaneous Information SPECIFIC LAB TO BE DRAWN:VANCOMYCIN TROUGH DATE TO... ONCE ONCE XX Last administered on 09/14/16 23:45; Start 09/14/16 at 23:45; Stop 09/14/16 at 23:46; Status DC Insulin Detemir (Levemir Inj) 26 units DAILYAC SQ Last administered on 09:00; Start 09/16/16 at 08:00; Stop 09/17/16 at 11:47; Status DC Acetaminophen 650 mg 650 mg Q4H PRN PO SEE LABEL COMMENTS Last administered on 09/16/16 03:35; Start 09/16/16 at 03:30; Stop 09/16/16 at 07:32; Status DC Aztreonam/Sodium Chloride (Azactam Inj/NS Inj) 100 ml @ 200 mls/hr Q8H IV Last administered on 09/17/16 18:00; Start 09/16/16 at 15:00; Stop 09/17/16 at 19:27; Status DC Insulin Detemir (Levemir Inj) 24 units DAILYAC SQ ; Start 09/18/16 at 08:00; Stop 09/18/16 at 11:24; Status DC Miscellaneous Information SPECIFIC LAB TO BE DRAWN:VANCOMYCIN TROUGH DATE TO... ONCE ONCE XX ; Start 09/18/16 at 11:45; Stop 09/18/16 at 11:46; Status Cancel Cefoxitin Sodium/ Sodium Chloride (Mefoxin Inj/NS Inj) 100 ml @ 200 mls/hr Q6H IV Last administered on 09/22/16 04:49; Start 09/17/16 at 23:00 Clarithromycin (Biaxin) 250 mg Q12HR PO Last administered on 09/21/16 20:47; Start 09/17/16 at 21:00 Miscellaneous Medication (ASP Crit: Other exception documentation) 1 UNSCH X1 PRN XX PHARMACY DOCUMENTATION; Start 09/17/16 at 19:30; Stop 09/18/16 at 19:29; Status DC Miscellaneous Medication 1 1 UNSCH X1 PRN XX PHARMACY DOCUMENTATION; Start at 19:30; Stop 09/18/16 at 19:29; Status DC Meropenem/Sodium Chloride (Merrem Inj/NS Inj) 100 ml @ 200 mls/hr Q8H IV Last administered on 09/22/16 04:49; Start 09/17/16 at 22:00 Insulin Detemir (Levemir Inj) 20 units DAILYAC SQ Last administered on 08:51; Start 09/19/16 at 08:00 Alprazolam (Xanax) 1 mg Q6H PRN PO ANXIETY Last administered on 09/21/16 15:27 ; Start 09/21/16 at 16:00 A/P Assessment and Plan A/p - Sepsis with Infected diabetic left foot gangrene/necrotizing fasciitis status post I&D- positive blood culture for AFB Abx per ID; started on Meropenem, Cefoxitin, Biaxin and Diflucan repeated blood cultures from 09/18 negative. cleared by podiatry for discharge. - Acute increase in transaminitis- will monitor LFT's-abdominal sonogram with mildly enlarged liver and minimal ascites. - Acute on chronic anemia-s/p PRBC transfusion- will monitor H/H -diabetes mellitus with hypoglycemic episode ; will further decrease long- acting insulin and continue accu-check with SSI- continue to hold AC novolog. - Chronic pain syndrome with neck surgery in the past; continue with pain control; suspicious for drug-seeking behavior; will gradually decrease the dose of Dilaudid and Xanax . - History of IV drug abuse in the past . -diarrhea;better- stool for c-diff. pending. -nausea/ vomiting; improved- antiemetics as needed. -DVT prophylaxis with subq Heparin. Discharge Planning not ready for discharge. Uzair Rodriguez MD Sep 22, 2016 08:01
[2016-09-22] MEDS: LACTATED RINGER'S 1000 ML IV SCH (08:30)
[2016-09-22] MEDS: carBAMazepine 200 MG TAB PO SCH ×2 (08:55→20:20)
[2016-09-22] MEDS: GABAPENTIN 400 MG CAP PO SCH ×3 (08:55→20:20)
[2016-09-22] MEDS: CLARITHROMYCIN 250 MG TAB PO SCH ×2 (08:55→20:21)
[2016-09-22] MEDS: ALPRAZolam 1 MG TAB PO PRN ×2 (10:06→17:45)
[2016-09-22] MEDS: FLUCONAZOLE 400 MG PREMIX BAG 200 ML IV SCH (16:30)
[2016-09-22] MEDS: QUEtiapine FUMARATE 200 MG TAB PO SCH (20:20)
[2016-09-22] MEDS: INSULIN DETEMIR 100 UNITS/ML VIAL SQ SCH (20:33)
[2016-09-22] MEDS: PRAZOSIN HCL 2 MG CAP PO SCH (21:00)
[2016-09-22] MEDS: HYDROmorphone HCL PF 1 MG/ML VIAL IV PUSH PRN (22:17)
[2016-09-23] VITALS (8 sets, daily range): BP systolic 109–133; BP diastolic 67–75; PULSE 72–90; RESP 14–18; TEMP 97–98; O2SAT 94–100
[2016-09-23] MEDS: CARISOPRODOL 350 MG TAB PO PRN ×2 (00:27→16:55)
[2016-09-23] MEDS: ACETAMINOPHEN 325 MG TAB PO PRN (00:32)
[2016-09-23] MEDS: HEPARIN SODIUM - SQ 10,000 UNITS/ML VIAL SQ SCH ×2 (00:33→14:52)
[2016-09-23] MEDS: ceFOXitin INJ 2 GM in SODIUM CHLORIDE 0.9% INJ 100 ML IV SCH ×4 (03:27→23:55)
[2016-09-23] MEDS: HYDROmorphone HCL 2 MG TAB PO PRN ×5 (03:28→23:50)
[2016-09-23] MEDS: INSULIN NovoLIN REGULAR SUPPLEMENTAL SCALE SQ SCH ×4 (03:32→21:22)
[2016-09-23] MEDS: GLUCAGON 1 MG/ML VIAL OTHER PRN (03:43)
[2016-09-23] MEDS: HYDROmorphone HCL PF 1 MG/ML VIAL IV PUSH PRN ×4 (05:08→21:06)
[2016-09-23] MEDS: MEROPENEM INJ 1,000 MG in SODIUM CHLORIDE 0.9% INJ 100 ML IV SCH ×3 (05:41→22:17)
[2016-09-23] MEDS: ONDANSETRON HCL 4 MG/2 ML VIAL IVP PRN ×3 (06:08→23:51)
[2016-09-23] MEDS: ALPRAZolam 1 MG TAB PO PRN ×3 (06:14→17:58)
[2016-09-23 07:54] LABS: AUTOMATED NEUTROPHIL # 5.5 TH/MM3 (1.8-7.7); BASOPHIL # 0.1 TH/MM3 (0-0.2); BASOPHIL % 1.6 % (0.0-2.0); EOSINOPHIL # 0.2 TH/MM3 (0-0.4); EOSINOPHIL % 2.6 % (0.0-4.0); HEMO FLAGS DIFF FINAL; LYMPH % 16.3 % (9.0-44.0); LYMPHOCYTE # 1.3 TH/MM3 (1.0-4.8); MEAN CELL VOLUME 83.2 FL (80.0-100.0); MEAN CORPUSCULAR HEMOGLOBIN 27.2 PG (27.0-34.0); MEAN CORPUSCULAR HGB CONC 32.7 % (32.0-36.0); NEUT % 70.5 % (16.0-70.0); PLATELET COUNT 376 TH/MM3 (150-450); RED BLOOD COUNT 3.12 MIL/MM3 (4.00-5.30); RED CELL DISTRIBUTION WIDTH 17.7 % (11.6-17.2); WHITE BLOOD COUNT 7.8 TH/MM3 (4.0-11.0)
--- NOTE | 2016-09-23 07:58 | HHI.PR ---
Subjective Remarks looks comfortable although she's asking for pain medications. afebrile. d/w the RN; she was found to have a syringe in the room and looked like she was trying to use the dilaudid for IV injection. Objective Vitals Vital Signs Date Time Temp Pulse Resp B/P Pulse Ox O2 Delivery O2 Flow Rate FiO2 09/23/16 05:40 16 09/23/16 05:04 16 09/23/16 04:55 97.0 85 16 120/75 100 09/23/16 03:25 16 09/23/16 02:15 7 09/23/16 00:00 97.2 87 16 121/68 98 09/22/16 20:55 97.9 86 17 126/68 99 09/22/16 18:00 98.3 76 24 108/63 99 09/22/16 14:30 98.0 83 16 143/76 96 09/22/16 09:00 98.1 95 16 127/80 98 I/O 09/22/16 09/22/16 09/22/16 09/23/16 09/23/16 09/23/16 07:00 15:00 23:00 07:00 15:00 23:00 Intake Total 240 ml 730 ml 480 ml 480 ml Output Total 400 ml Balance 240 ml 730 ml 80 ml 480 ml Intake Oral 240 ml 480 ml 480 ml 480 ml IV Total 250 ml Output Urine Total 400 ml # Voids 3 1 # Bowel Movements 1 1 Result Diagram: 09/21/16 0713 Imaging Last Impressions Liver Ultrasound 09/16/16 0000 Signed Impressions: Service Date/Time: Friday, September 16, 2016 10:51 - CONCLUSION: 1. Liver is mildly enlarged. 2. Status post cholecystectomy. 3. Minimal ascites. Marcell Courtney MD Chest X-Ray 09/16/16 0000 Signed Impressions: Service Date/Time: Friday, September 16, 2016 05:38 - CONCLUSION: 1. Subsegmental atelectasis the left lung base. Right lung clear. Morales Rey MD Lower Extremity Ultrasound 09/12/16 0000 Signed Impressions: Service Date/Time: August 17:55 - CONCLUSION: Negative for DVT. Nonspecific left groin lymph nodes Francois Boothe MD Foot MRI 09/06/16 0000 Signed Impressions: Service Date/Time: Tuesday, September 06, 2016 11:35 - CONCLUSION: Significant abnormality on the medial side of the foot with abnormal signal in the tarsal navicular and first cuneiform. Gonzalo Sears MD FACR Foot X-Ray 09/05/16 0000 Signed Impressions: Service Date/Time: August 23:39 - CONCLUSION: 1. There is no evidence of acute fracture. 2. Soft tissue swelling is present with gas in the soft tissues. No plain film findings of osteomyelitis. If there is necessity for further evaluation contrast-enhanced MRI is recommended. Gaurav Parks MD Ankle X-Ray 09/05/16 0000 Signed Impressions: Service Date/Time: August 23:36 - CONCLUSION: 1. There is no evidence of acute fracture. Gaurav Parks MD Objective Remarks GENERAL: This is a well-nourished, well-developed patient, in no apparent distress. CARDIOVASCULAR: Regular rate and regular rhythm without murmurs, gallops, or rubs. RESPIRATORY: Clear to auscultation. Breath sounds equal bilaterally. No wheezes , rales, or rhonchi. GASTROINTESTINAL: Abdomen soft, non-tender, nondistended. Normal, active bowel sounds MUSCULOSKELETAL: left foot covered with clean dressing. NEURO: Alert & Oriented x4 to person, place, time, situation. Moves all ext x4 Procedures central line placement I/D left foot/ ankle with wound vac placement Medications and IVs Current Medications Sodium Chloride 1,000 ml @ 2,000 mls/hr Q30M ONCE IV Last administered on 09/05 23:55; Start 09/05/16 at 23:22; Stop 09/05/16 at 23:51; Status DC Sodium Chloride (NS 1000 ml Inj) 1,000 ml @ 2,000 mls/hr Q30M ONCE IV Last administered on 09/06/16 00:40; Start 09/05/16 at 23:52; Stop 09/06/16 at 00:21 ; Status DC IV Flush 2 ml 2 ml UNSCH PRN IVF FLUSH AFTER USING IV ACCESS; Start 09/05/16 at 23:30; Stop 09/06/16 at 02:17; Status DC Vancomycin HCl 1000 mg/Sodium Chloride 250 ml @ 250 mls/hr ONCE ONCE IV Last administered on 09/06/16 05:02; Start 09/05/16 at 23:30; Stop 09/06/16 at 00:29 ; Status DC Clindamycin Phosphate/Sodium Chloride (Cleocin Inj/NS Inj) 106 ml @ 212 mls/hr ONCE ONCE IV Last administered on 09/06/16 01:46; Start 09/06/16 at 00:45; Stop 09/06/16 at 01:14; Status DC Insulin Human Regular (NovoLIN R INJ) 7 units ONCE ONCE IV PUSH Last administered on 09/06/16 01:09; Start 09/06/16 at 00:45; Stop 09/06/16 at 00:46 ; Status DC Ondansetron HCl (Zofran Inj) 4 mg ONCE ONCE IV PUSH Last administered on 01:46; Start 09/06/16 at 01:45; Stop 09/06/16 at 01:46; Status DC Hydromorphone HCl 0.5 mg 0.5 mg ONCE ONCE IV PUSH Last administered on 01:46; Start 09/06/16 at 01:45; Stop 09/06/16 at 01:46; Status DC Piperacillin Sod/ Tazobactam Sod 50 ml @ 100 mls/hr ONCE ONCE IV Last administered on 09/06/16 02:27; Start 09/06/16 at 02:00; Stop 09/06/16 at 02:29 ; Status DC Sodium Chloride (NS 1000 ml Inj) 1,000 ml @ 999 mls/hr BOLUS ONCE IV Last administered on 09/06/16 02:17; Start 09/06/16 at 02:00; Stop 09/06/16 at 03:00 ; Status DC IV Flush (NS Flush) 2 ml BID IVF ; Start 09/06/16 at 09:00; Stop 09/06/16 at 09: 00; Status DC IV Flush (NS Flush) 2 ml UNSCH PRN IVF FLUSH AFTER USING IV ACCESS; Start 09/06 at 02:15; Stop 09/06/16 at 02:54; Status DC Hydromorphone HCl 0.5 mg 0.5 mg ONCE ONCE IV PUSH Last administered on 02:33; Start 09/06/16 at 02:30; Stop 09/06/16 at 02:31; Status DC Potassium Chloride/Dextrose/ Sod Cl 1,000 ml @ 125 mls/hr Q8H IV ; Start at 02:30; Stop 09/06/16 at 03:17; Status DC Sodium Chloride (NS 1000 ml Inj) 1,000 ml @ 100 mls/hr Q10H IV Last administered on 09/06/16 05:53; Start 09/06/16 at 02:45; Stop 09/06/16 at 10:19 ; Status DC IV Flush (NS Flush) 2 ml UNSCH PRN FLUSH FLUSH AFTER USING IV ACCESS Last administered on 09/21/16 20:47; Start 09/06/16 at 02:45 IV Flush (NS Flush) 2 ml BID FLUSH Last administered on 09/22/16 20:21; Start 09/06/16 at 09:00 Acetaminophen (Tylenol) 650 mg Q4H PRN PO TEMP > 100.4 Last administered on 09/23 00:32; Start 09/06/16 at 02:45 Ondansetron HCl (Zofran Inj) 4 mg Q6H PRN IVP NAUSEA OR VOMITING Last administered on 09/23/16 06:08; Start 09/06/16 at 02:45 Sennosides (Senokot) 17.2 mg Q12H PRN PO CONSTIPATION; Start 09/06/16 at 02:45 Heparin Sodium (Porcine) (Heparin Inj) 5,000 units Q12H SQ Last administered on 09/22/16 16:30; Start 09/06/16 at 02:45 Naloxone HCl 0.4 mg 0.4 mg UNSCH PRN IV SEE LABEL COMMENTS; Start 09/06/16 at 02:45 Pharmacy Profile Note 0 ml @ 0 mls/hr UNSCH OTHER ; Start 09/06/16 at 02:45; Stop 09/06/16 at 09:07; Status DC Piperacillin Sod/ Tazobactam Sod (Zosyn 3.375 Gm Premix) 50 ml @ 100 mls/hr Q6H IV Last administered on 09/10/16 09:54; Start 09/06/16 at 09:00; Stop at 13:07; Status DC Dextrose (D50w (Vial) Inj) 25 ml UNSCH PRN IV PUSH HYPOGLYCEMIA-SEE COMMENTS Last administered on 09/14/16 18:39; Start 09/06/16 at 02:45 Glucagon (Glucagon Inj) 1 mg UNSCH PRN OTHER HYPOGLYCEMIA-SEE COMMENTS Last administered on 09/23/16 03:43; Start 09/06/16 at 02:45 Insulin Aspart (NovoLOG SUPPLEMENTAL SCALE) 1 ACHS SLIDING SCALE SQ Last administered on 09/07/16 05:28; Start 09/06/16 at 07:00; Stop 09/07/16 at 13:17 ; Status DC Dextrose (D50w (Syr) Inj) 25 ml ONCE ONCE IV ; Start 09/06/16 at 03:45; Stop at 03:46; Status Cancel Dextrose 25 ml 25 ml ONCE ONCE IV Last administered on 09/06/16 03:54; Start 09/06/16 at 04:00; Stop 09/06/16 at 04:01; Status DC Vancomycin HCl/ Sodium Chloride (Vancomycin Inj/ NS 500 ml Inj) 515 ml @ 257.5 mls/ hr Q24H IV ; Start 09/06/16 at 22:00; Stop 09/07/16 at 11:00; Status DC Miscellaneous Information SPECIFIC LAB TO BE LEANDRO... ONCE ONCE XX ; Start at 21:45; Stop 09/08/16 at 21:46; Status Cancel Hydromorphone HCl 1 mg 1 mg ONCE ONCE IV PUSH Last administered on 09/06/16 05:07; Start 09/06/16 at 05:00; Stop 09/06/16 at 05:01; Status DC Pharmacy Profile Note (Vancomycin Consult Pharmacy) 0 ml @ 0 mls/hr UNSCH OTHER ; Start 09/06/16 at 09:15; Stop 09/09/16 at 17:49; Status DC Dextrose (D25w Inj) 10 ml ONCE ONCE IV PUSH ; Start 09/06/16 at 10:00; Stop at 10:03; Status DC Hydromorphone HCl 0.5 mg 0.5 mg Q4H PRN IV PUSH BREAKTHROUGH PAIN Last administered on 09/23/16 05:08; Start 09/06/16 at 10:00 Levofloxacin/ Dextrose (Levaquin 500 Mg Premix Inj) 100 ml @ 100 mls/hr Q24H IV Last administered on 09/07/16 10:00; Start 09/06/16 at 10:00; Stop at 23:49; Status DC Alprazolam (Xanax) 2 mg Q6H PRN PO ANXIETY Last administered on 09/21/16 08:15 ; Start 09/06/16 at 10:00; Stop 09/21/16 at 12:51; Status DC Carbamazepine (TEGretol) 200 mg BID PO Last administered on 09/22/16 20:20; Start 09/06/16 at 21:00 Carisoprodol (Soma) 350 mg QID PRN PO MUSCLE SPASM Last administered on 00:27; Start 09/06/16 at 10:00 Gabapentin (Neurontin) 600 mg Q12HR PO Last administered on 09/07/16 09:07; Start 09/06/16 at 21:00; Stop 09/07/16 at 14:06; Status DC Hydromorphone HCl (Dilaudid) 4 mg Q6H PRN PO PAIN SCALE 1 TO 10 Last administered on 09/08/16 10:12; Start 09/06/16 at 10:00; Stop 09/08/16 at 12:55 ; Status DC Prazosin HCl (Minipress) 1 mg DAILY PO ; Start 09/07/16 at 09:00; Stop 09/07/16 at 14:03; Status DC Promethazine HCl (Phenergan) 25 mg Q6H PRN PO Nausea/Vomiting Last administered on 09/10/16 12:53; Start 09/06/16 at 10:00 Quetiapine Fumarate (SEROquel) 200 mg DAILY PO ; Start 09/07/16 at 09:00; Stop 09/07/16 at 14:05; Status DC Ropinirole HCl 2 mg 2 mg HS PO Last administered on 09/22/16 20:20; Start 09/06 at 21:00 Dextrose/Sodium Chloride 1,000 ml @ 100 mls/hr Q10H IV Last administered on 01:28; Start 09/06/16 at 10:19; Stop 09/07/16 at 14:22; Status DC Lactated Ringer's 1,000 ml @ 30 mls/hr Q24H IV ; Start 09/06/16 at 13:15; Stop 09/06/16 at 16:55; Status DC Sodium Chloride (NS 500 ml Inj) 500 ml @ 30 mls/hr [id number] IV ; Start 09/06/16 at 13:15; Stop 09/07/16 at 13:14; Status DC Insulin Human Regular (NovoLIN R INJ) See Protocol Table ... UNSCH X1 PRN SQ SEE PROTOCOL; Start 09/06/16 at 13:15; Stop 09/06/16 at 16:55; Status DC Metoprolol Tartrate (Lopressor) 25 mg UNSCH X1 PRN PO SEE LABEL COMMENTS; Start 09/06/16 at 13:15; Stop 09/06/16 at 16:55; Status DC Bupivacaine HCl (Marcaine Pf 0.25% Inj) 30 ml STK-MED ONCE .ROUTE ; Start at 13:12; Stop 09/06/16 at 13:13; Status DC Lidocaine HCl (Xylocaine 1% Inj (50 ml)) 50 ml STK-MED ONCE .ROUTE Last administered on 09/06/16t 15:49; Start 09/06/16 at 13:12; Stop 09/06/16 at 13:13 ; Status DC Bupivacaine HCl (Marcaine Pf 0.5% Inj) 30 ml STK-MED ONCE .ROUTE Last administered on 09/06/16t 15:49; Start 09/06/16 at 14:54; Stop 09/06/16 at 14:55 ; Status DC Midazolam HCl (Versed Inj) 4 mg STK-MED ONCE .ROUTE ; Start 09/06/16 at 15:48; Stop 09/06/16 at 15:49; Status DC Fentanyl Citrate (fentaNYL INJ) 250 mcg STK-MED ONCE .ROUTE ; Start 09/06/16 at 15:48; Stop 09/06/16 at 15:49; Status DC IV Flush (NS Flush) 2 ml UNSCH PRN IVF FLUSH AFTER USING IV ACCESS; Start 09/06 at 16:45; Stop 09/06/16 at 16:56; Status DC IV Flush (NS Flush) 2 ml BID IVF ; Start 09/06/16 at 21:00; Stop 09/06/16 at 21: 00; Status DC Miscellaneous Information (Post-op Orders (for Pharmacy)) STAT ONCE XX ; Start 09/06/16 at 16:45; Stop 09/06/16 at 16:54; Status DC Hydromorphone HCl (*DILAUDID PF INJ PERIprocedural ONLY) 1 mg STK-MED ONCE .ROUTE Last administered on 09/06/16 16:41; Start 09/06/16 at 16:41; Stop at 16:42; Status DC Hydromorphone HCl (*DILAUDID PF INJ PERIprocedural ONLY) 1 mg STK-MED ONCE .ROUTE Last administered on 09/06/16 16:48; Start 09/06/16 at 16:48; Stop at 16:49; Status DC Midazolam HCl (Versed Inj) 4 mg STK-MED ONCE .ROUTE ; Start 09/06/16 at 16:51; Stop 09/06/16 at 16:52; Status DC Fentanyl Citrate (fentaNYL INJ) 500 mcg STK-MED ONCE .ROUTE ; Start 09/06/16 at 16:51; Stop 09/06/16 at 16:52; Status DC Fentanyl Citrate (fentaNYL INJ) 200 mcg STK-MED ONCE .ROUTE ; Start 09/06/16 at 16:51; Stop 09/06/16 at 16:52; Status DC Morphine Sulfate (Morphine Inj) 8 mg STK-MED ONCE .ROUTE ; Start 09/06/16 at 16: 51; Stop 09/06/16 at 16:52; Status DC Hydroxyzine HCl (*VISTARIL INJ PERIprocedural ONLY) 25 mg STK-MED ONCE IM Last administered on 09/06/16 16:56; Start 09/06/16 at 16:56; Stop 09/06/16 at 16:57 ; Status DC Hydromorphone HCl (*DILAUDID PF INJ PERIprocedural ONLY) 1 mg STK-MED ONCE .ROUTE Last administered on 09/06/16 16:57; Start 09/06/16 at 16:57; Stop at 16:58; Status DC Neomycin/ Polymyxin 2 ml 2 ml STK-MED ONCE IR Last administered on 09/06/16 16 :00; Start 09/06/16 at 16:00; Stop 09/06/16 at 17:48; Status DC Vancomycin HCl/ Sodium Chloride (Vancomycin Inj/ NS 250 ml Inj) 250 ml @ 250 mls/hr Q12H IV Last administered on 09/09/16 01:32; Start 09/07/16 at 12:00; Stop 09/09/16 at 15:15; Status DC Miscellaneous Information SPECIFIC LAB TO BE LEANDRO... ONCE ONCE XX Last administered on 09/09/16 11:45; Start 09/09/16 at 11:45; Stop 09/09/16 at 11:46 ; Status DC Insulin Human Regular (NovoLIN R SUPPLEMENTAL SCALE) 1 ACHS SLIDING SCALE SQ Last administered on 09/22/16 20:34; Start 09/07/16 at 16:00 Prazosin HCl (Minipress) 2 mg HS PO Last administered on 09/21/16 20:31; Start 09/07/16 at 21:00 Quetiapine Fumarate (SEROquel) 200 mg HS PO Last administered on 09/22/16 20:20 ; Start 09/07/16 at 21:00 Gabapentin (Neurontin) 400 mg BID@09,12 PO Last administered on 09/22/16 12:15 ; Start 09/08/16 at 09:00 Gabapentin (Neurontin) 800 mg HS PO Last administered on 09/22/16 20:20; Start 09/07/16 at 21:00 Insulin Detemir (Levemir Inj) 40 units DAILY SQ ; Start 09/08/16 at 09:00; Stop 09/08/16 at 10:45; Status DC Insulin Detemir 20 units 20 units HS SQ Last administered on 09/07/16 21:49; Start 09/07/16 at 21:00; Stop 09/08/16 at 10:49; Status DC Sodium Chloride (NS 1000 ml Inj) 1,000 ml @ 100 mls/hr Q10H IV Last administered on 09/15/16 03:00; Start 09/07/16 at 15:00; Status Hold Insulin Detemir (Levemir Inj) 10 units Q12HR SQ Last administered on 09/07/16 21:49; Start 09/07/16 at 21:00; Stop 09/08/16 at 10:49; Status DC Calcium Carbonate (Oscal) 500 mg Q12HR PO Last administered on 09/14/16 09:36 ; Start 09/07/16 at 21:00; Stop 09/14/16 at 20:59; Status DC Clindamycin HCl (Cleocin) 450 mg Q6HR PO Last administered on 09/10/16 11:29; Start 09/08/16 at 00:00; Stop 09/10/16 at 13:08; Status DC Bupivacaine HCl (Marcaine Pf 0.5% Inj) 30 ml STK-MED ONCE .ROUTE Last administered on 09/08/16 08:24; Start 09/08/16 at 07:12; Stop 09/08/16 at 07:13 ; Status DC Lidocaine HCl (Xylocaine 1% Inj (50 ml)) 50 ml STK-MED ONCE .ROUTE Last administered on 09/08/16 08:24; Start 09/08/16 at 07:13; Stop 09/08/16 at 07:14 ; Status DC Neomycin/Polymyxin (Neosporin G.u. Irr) 2 ml STK-MED ONCE IR Last administered on 09/08/16 07:18; Start 09/08/16 at 07:18; Stop 09/08/16 at 07:19; Status DC Midazolam HCl (Versed Inj) 2 mg STK-MED ONCE .ROUTE ; Start 09/08/16 at 07:56; Stop 09/08/16 at 07:57; Status DC Fentanyl Citrate (fentaNYL INJ) 250 mcg STK-MED ONCE .ROUTE ; Start 09/08/16 at 07:56; Stop 09/08/16 at 07:57; Status DC Acetaminophen (Ofirmev Inj) 1,000 mg STK-MED ONCE IV ; Start 09/08/16 at 07:56; Stop 09/08/16 at 07:57; Status DC Sugammadex Sodium (Bridion Inj) 200 mg STK-MED ONCE IV PUSH ; Start 09/08/16 at 07:57; Stop 09/08/16 at 07:58; Status DC IV Flush (NS Flush) 2 ml UNSCH PRN IVF FLUSH AFTER USING IV ACCESS; Start 09/08 at 09:00; Stop 09/08/16 at 09:06; Status DC IV Flush (NS Flush) 2 ml BID IVF ; Start 09/08/16 at 09:00; Stop 09/08/16 at 09: 06; Status DC Miscellaneous Information (Post-op Orders (for Pharmacy)) STAT ONCE XX ; Start 09/08/16 at 09:00; Stop 09/08/16 at 09:19; Status DC Hydromorphone HCl (*DILAUDID PF INJ PERIprocedural ONLY) 1 mg STK-MED ONCE .ROUTE Last administered on 09/08/16 09:00; Start 09/08/16 at 09:00; Stop at 09:01; Status DC Morphine Sulfate (Morphine Inj) 4 mg STK-MED ONCE .ROUTE ; Start 09/08/16 at 09: 01; Stop 09/08/16 at 09:02; Status DC Miscellaneous Information ALL NURSING DEPARTME... UNSCH PRN XX SEE LABEL COMMENTS; Start 09/08/16 at 08:55; Stop 09/09/16 at 08:54; Status DC Insulin Detemir (Levemir Inj) 20 units DAILYAC SQ ; Start 09/09/16 at 08:00; Stop 09/09/16 at 11:17; Status DC Insulin Detemir (Levemir Inj) 10 units HS SQ Last administered on 09/22/16 20: 33; Start 09/08/16 at 21:00 Hydromorphone HCl (Dilaudid) 4 mg Q4H PRN PO PAIN SCALE 6 TO 10 Last administered on 09/18/16 17:43; Start 09/08/16 at 14:00; Stop 09/21/16 at 12:51; Status DC Hydromorphone HCl (Dilaudid) 2 mg Q4H PRN PO PAIN 4-10 Last administered on 09/23 03:28; Start 09/08/16 at 13:00 Insulin Detemir (Levemir Inj) 30 units DAILYAC SQ Last administered on 09:37; Start 09/10/16 at 08:00; Stop 09/15/16 at 09:29; Status DC Insulin Aspart 3 units 3 units TIDAC SQ Last administered on 09/13/16 17:54; Start 09/09/16 at 12:00; Status Hold Vancomycin HCl/ Sodium Chloride (Vancomycin Inj/ NS 500 ml Inj) 515 ml @ 257.5 mls/ hr Q12H IV ; Start 09/09/16 at 20:00; Stop 09/09/16 at 20:00; Status DC Miscellaneous Information SPECIFIC LAB TO BE DRAWN:VANCOMYCIN TROUGH DATE TO... ONCE ONCE XX ; Start 09/11/16 at 07:45; Stop 09/11/16 at 07:45; Status DC Fluconazole 200 mg 200 mg DAILY PO Last administered on 09/10/16 09:54; Start 09/09/16 at 18:00; Stop 09/10/16 at 13:07; Status DC Lactated Ringer's 1,000 ml @ 30 mls/hr Q24H IV Last administered on 09/11/16 07:30; Start 09/10/16 at 08:30 Sodium Chloride 500 ml @ 30 mls/hr [id number] IV ; Start 09/10/16 at 08:30; Stop 09/11/16 at 08:29; Status DC Dextrose/Sodium Chloride (D5W-NS 1000 ml Inj) 1,000 ml @ 60 mls/hr [id number] IV Last administered on 09/10/16 11:25; Start 09/10/16 at 11:15; Stop 09/11/16 at 03:54; Status DC Acetaminophen (Tylenol Supp) 325 mg Q4H PRN RECTAL fever >100.4 Last administered on 09/10/16 12:21; Start 09/10/16 at 12:00 Propofol (Diprivan 200 Mg/20 ml Inj) 200 mg STK-MED ONCE IV ; Start 09/06/16 at 12:00; Stop 09/10/16 at 12:53; Status DC Ondansetron HCl 4 mg 4 mg STK-MED ONCE IV PUSH ; Start 09/06/16 at 12:00; Stop 09/10/16 at 12:53; Status DC Lactated Ringer's 1,000 ml @ As Directed STK-MED ONCE IV ; Start 09/06/16 at 12 :00; Stop 09/10/16 at 12:53; Status DC Ceftriaxone Sodium 2000 mg/ Sodium Chloride 100 ml @ 200 mls/hr Q24H IV Last administered on 09/11/16 13:42; Start 09/10/16 at 14:00; Stop 09/12/16 at 08:20 ; Status DC Fluconazole/ Sodium Chloride (Diflucan 400 Mg Premix Bag) 200 ml @ 100 mls/hr Q24H IV Last administered on 09/22/16 16:30; Start 09/10/16 at 15:00 Propofol (Diprivan 200 Mg/20 ml Inj) 200 mg STK-MED ONCE IV ; Start 09/08/16 at 12:00; Stop 09/10/16 at 13:13; Status DC Ondansetron HCl 4 mg 4 mg STK-MED ONCE IV PUSH ; Start 09/08/16 at 12:00; Stop 09/10/16 at 13:13; Status DC Lactated Ringer's (Lr 1000 ml Inj) 1,000 ml @ As Directed STK-MED ONCE IV ; Start 09/08/16 at 12:00; Stop 09/10/16 at 13:13; Status DC Fentanyl Citrate (fentaNYL INJ) 250 mcg STK-MED ONCE .ROUTE ; Start 09/11/16 at 07:05; Stop 09/11/16 at 07:06; Status DC Midazolam HCl (Versed Inj) 2 mg STK-MED ONCE .ROUTE ; Start 09/11/16 at 07:16; Stop 09/11/16 at 07:17; Status DC Midazolam HCl (Versed Inj) 2 mg STK-MED ONCE .ROUTE ; Start 09/11/16 at 07:16; Stop 09/11/16 at 07:17; Status DC Bupivacaine HCl (Marcaine Pf 0.5% Inj) 30 ml STK-MED ONCE .ROUTE Last administered on 09/11/16 08:00; Start 09/11/16 at 07:33; Stop 09/11/16 at 07:34 ; Status DC Lidocaine HCl (Xylocaine-Mpf 2% Inj) 30 ml STK-MED ONCE .ROUTE Last administered on 09/11/16 08:00; Start 09/11/16 at 07:33; Stop 09/11/16 at 07:34 ; Status DC Hydromorphone HCl (*DILAUDID PF INJ PERIprocedural ONLY) 1 mg STK-MED ONCE .ROUTE Last administered on 09/11/16 08:58; Start 09/11/16 at 08:58; Stop at 08:59; Status DC Meperidine HCl (*DEMEROL INJ PERIprocedural ONLY) 25 mg STK-MED ONCE .ROUTE Last administered on 09/11/16 09:05; Start 09/11/16 at 09:05; Stop 09/11/16 at 09:06; Status DC Hydromorphone HCl (*DILAUDID PF INJ PERIprocedural ONLY) 1 mg STK-MED ONCE .ROUTE Last administered on 09/11/16 09:12; Start 09/11/16 at 09:12; Stop at 09:13; Status DC Miscellaneous Information ALL NURSING DEPARTME... UNSCH PRN XX SEE LABEL COMMENTS; Start 09/11/16 at 08:49; Stop 09/12/16 at 08:48; Status DC Hydroxyzine HCl (*VISTARIL INJ PERIprocedural ONLY) 25 mg STK-MED ONCE IM Last administered on 09/11/16 09:12; Start 09/11/16 at 09:12; Stop 09/11/16 at 09:13 ; Status DC Insulin Detemir (Levemir Inj) 20 units NOW ONCE SQ Last administered on 12:34; Start 09/11/16 at 11:15; Stop 09/11/16 at 11:16; Status DC Neomycin/Polymyxin (Neosporin G.u. Irr) 1 ml STK-MED ONCE IR Last administered on 09/11/16 08:00; Start 09/11/16 at 08:00; Stop 09/11/16 at 12:34; Status DC Hydromorphone HCl 1 mg 1 mg ONCE ONCE IV PUSH Last administered on 09/12/16 00:35; Start 09/12/16 at 00:00; Stop 09/12/16 at 00:03; Status DC Cefepime HCl 2000 mg/Sodium Chloride 100 ml @ 200 mls/hr Q8H IV Last administered on 09/16/16 08:32; Start 09/12/16 at 10:00; Stop 09/16/16 at 14:09 ; Status DC Pharmacy Profile Note 0 ml @ 0 mls/hr UNSCH OTHER ; Start 09/12/16 at 08:30; Stop 09/17/16 at 19:26; Status DC Vancomycin HCl/ Sodium Chloride (Vancomycin Inj/ NS 500 ml Inj) 515 ml @ 250 mls/hr Q12H IV Last administered on 09/17/16 11:18; Start 09/12/16 at 12:00; Stop 09/17/16 at 19:26; Status DC Miscellaneous Information SPECIFIC LAB TO BE DRAWN:VANCOMYCIN TROUGH DATE TO... ONCE ONCE XX ; Start 09/14/16 at 11:45; Stop 09/14/16 at 11:46; Status DC Propofol (Diprivan 200 Mg/20 ml Inj) 200 mg STK-MED ONCE IV ; Start 09/11/16 at 10:45; Stop 09/12/16 at 10:45; Status DC Neostigmine Methylsulfate (Prostigmin Inj) 3 mg STK-MED ONCE IV ; Start at 10:45; Stop 09/12/16 at 10:45; Status DC Ondansetron HCl (Zofran Inj) 4 mg STK-MED ONCE IV PUSH ; Start 09/11/16 at 10:45 ; Stop 09/12/16 at 10:45; Status DC Miscellaneous Information SPECIFIC LAB TO BE DRAWN:VANCOMYCIN TROUGH DATE TO... ONCE ONCE XX Last administered on 09/14/16 23:45; Start 09/14/16 at 23:45; Stop 09/14/16 at 23:46; Status DC Insulin Detemir (Levemir Inj) 26 units DAILYAC SQ Last administered on 09:00; Start 09/16/16 at 08:00; Stop 09/17/16 at 11:47; Status DC Acetaminophen 650 mg 650 mg Q4H PRN PO SEE LABEL COMMENTS Last administered on 09/16/16 03:35; Start 09/16/16 at 03:30; Stop 09/16/16 at 07:32; Status DC Aztreonam/Sodium Chloride (Azactam Inj/NS Inj) 100 ml @ 200 mls/hr Q8H IV Last administered on 09/17/16 18:00; Start 09/16/16 at 15:00; Stop 09/17/16 at 19:27; Status DC Insulin Detemir (Levemir Inj) 24 units DAILYAC SQ ; Start 09/18/16 at 08:00; Stop 09/18/16 at 11:24; Status DC Miscellaneous Information SPECIFIC LAB TO BE DRAWN:VANCOMYCIN TROUGH DATE TO... ONCE ONCE XX ; Start 09/18/16 at 11:45; Stop 09/18/16 at 11:46; Status Cancel Cefoxitin Sodium/ Sodium Chloride (Mefoxin Inj/NS Inj) 100 ml @ 200 mls/hr Q6H IV Last administered on 09/23/16 03:27; Start 09/17/16 at 23:00 Clarithromycin (Biaxin) 250 mg Q12HR PO Last administered on 09/22/16 20:21; Start 09/17/16 at 21:00 Miscellaneous Medication (ASP Crit: Other exception documentation) 1 UNSCH X1 PRN XX PHARMACY DOCUMENTATION; Start 09/17/16 at 19:30; Stop 09/18/16 at 19:29; Status DC Miscellaneous Medication 1 1 UNSCH X1 PRN XX PHARMACY DOCUMENTATION; Start at 19:30; Stop 09/18/16 at 19:29; Status DC Meropenem/Sodium Chloride (Merrem Inj/NS Inj) 100 ml @ 200 mls/hr Q8H IV Last administered on 09/23/16 05:41; Start 09/17/16 at 22:00 Insulin Detemir (Levemir Inj) 20 units DAILYAC SQ Last administered on 08:51; Start 09/19/16 at 08:00; Stop 09/22/16 at 08:03; Status DC Alprazolam (Xanax) 1 mg Q6H PRN PO ANXIETY Last administered on 09/23/16 06:14 ; Start 09/21/16 at 16:00 Insulin Detemir (Levemir Inj) 16 units DAILYAC SQ ; Start 09/23/16 at 08:00 A/P Assessment and Plan A/P - Sepsis with Infected diabetic left foot gangrene/necrotizing fasciitis status post I&D- positive blood culture for AFB Abx per ID; started on Meropenem, Cefoxitin, Biaxin and Diflucan repeated blood cultures from 09/18 negative. cleared by podiatry for discharge. - Acute increase in transaminitis- will monitor LFT's-abdominal sonogram with mildly enlarged liver and minimal ascites. - Acute on chronic anemia-s/p PRBC transfusion- will monitor H/H -diabetes mellitus with hypoglycemic episode ; will further decrease long- acting insulin and continue accu-check with SSI- continue to hold AC novolog. - Chronic pain syndrome with neck surgery in the past; continue with pain control; suspicious for drug-seeking behavior; will gradually decrease the dose of Dilaudid and Xanax . reportedly was trying to use her dilaudid for IV injection- this was d/w the RN and nursing supercharger repair supervisor on the floor. - History of IV drug abuse in the past . -diarrhea;better- stool for c-diff. pending. -nausea/ vomiting; improved- antiemetics as needed. -DVT prophylaxis with subq Heparin. Discharge Planning not ready for discharge. Uzair Rodriguez MD Sep 23, 2016 07:58
[2016-09-23] MEDS: INSULIN DETEMIR 100 UNITS/ML VIAL SQ SCH (08:00)
[2016-09-23 08:24] LABS: ALKALINE PHOSPHATASE 482 U/L (45-117); ALT (GPT) 12 U/L (10-53); ANION GAP 10 MEQ/L (5-15); AST (GOT) 17 U/L (15-37); BICARBONATE 25.3 MEQ/L (21.0-32.0); BLOOD UREA NITROGEN 8 MG/DL (7-18); CHLORIDE 102 MEQ/L (98-107); GLOMERULAR FILTRATION RATE 96 ML/MIN (>89); POTASSIUM 3.6 MEQ/L (3.5-5.1); SODIUM (NA) 137 MEQ/L (136-145); TOTAL BILIRUBIN ADULT 0.1 MG/DL (0.2-1.0)
[2016-09-23] MEDS: LACTATED RINGER'S 1000 ML IV SCH (08:30)
[2016-09-23] MEDS: CLARITHROMYCIN 250 MG TAB PO SCH ×2 (08:59→21:06)
[2016-09-23] MEDS: carBAMazepine 200 MG TAB PO SCH ×2 (08:59→21:06)
[2016-09-23] MEDS: GABAPENTIN 400 MG CAP PO SCH ×3 (08:59→21:06)
[2016-09-23] MEDS: SODIUM CHLORIDE 0.9% FLUSH 5 ML FLUSH FLUSH SCH ×2 (08:59→21:07)
[2016-09-23] MEDS: FLUCONAZOLE 400 MG PREMIX BAG 200 ML IV SCH (15:55)
[2016-09-23] MEDS ORDERED: INSULIN DETEMIR 100 UNITS/ML VIAL SQ SCH (21:00)
[2016-09-23] MEDS: QUEtiapine FUMARATE 200 MG TAB PO SCH (21:06)
[2016-09-23] MEDS: PRAZOSIN HCL 2 MG CAP PO SCH (22:16)
[2016-09-24] VITALS: BP 127/77; PULSE 96; RESP 17; TEMP 97.2; O2SAT 100
[2016-09-24] MEDS: HYDROmorphone HCL PF 1 MG/ML VIAL IV PUSH PRN ×3 (01:12→10:56)
[2016-09-24] MEDS: ALPRAZolam 1 MG TAB PO PRN ×2 (01:18→08:42)
[2016-09-24] MEDS: HEPARIN SODIUM - SQ 10,000 UNITS/ML VIAL SQ SCH ×2 (03:49→13:40)
[2016-09-24] MEDS: HYDROmorphone HCL 2 MG TAB PO PRN ×3 (03:52→12:42)
[2016-09-24] MEDS: CARISOPRODOL 350 MG TAB PO PRN ×2 (03:59→11:07)
[2016-09-24 04:00] VITALS: BP 120/60; PULSE 90; RESP 16; TEMP 98.1; O2SAT 97
[2016-09-24] MEDS: ceFOXitin INJ 2 GM in SODIUM CHLORIDE 0.9% INJ 100 ML IV SCH ×2 (05:21→11:07)
[2016-09-24] MEDS: MEROPENEM INJ 1,000 MG in SODIUM CHLORIDE 0.9% INJ 100 ML IV SCH ×2 (06:09→13:35)
[2016-09-24] MEDS: INSULIN NovoLIN REGULAR SUPPLEMENTAL SCALE SQ SCH ×2 (06:12→11:37)
[2016-09-24 08:00] VITALS: BP 118/74; PULSE 103; RESP 18; TEMP 97.7; O2SAT 97
[2016-09-24] MEDS: LACTATED RINGER'S 1000 ML IV SCH (08:30)
[2016-09-24] MEDS: SODIUM CHLORIDE 0.9% FLUSH 5 ML FLUSH FLUSH SCH (08:31)
[2016-09-24] MEDS: GABAPENTIN 400 MG CAP PO SCH ×2 (08:36→11:33)
[2016-09-24] MEDS: carBAMazepine 200 MG TAB PO SCH (08:36)
[2016-09-24] MEDS: CLARITHROMYCIN 250 MG TAB PO SCH (08:36)
[2016-09-24] MEDS: INSULIN DETEMIR 100 UNITS/ML VIAL SQ SCH (08:37)
--- NOTE | 2016-09-24 11:56 | HHI.PR ---
Subjective Remarks in no acute distress. d/w the RN and looked comfortable on this pain regimen. afebrile. wound vac is off. 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 Objective Vitals Vital Signs Date Time Temp Pulse Resp B/P Pulse Ox O2 Delivery O2 Flow Rate FiO2 09/24/16 08:00 97.7 103 18 118/74 97 09/24/16 04:00 98.1 90 16 120/60 97 09/24/16 00:00 97.2 96 17 127/77 100 09/23/16 20:23 84 09/23/16 20:00 97.1 90 18 133/67 100 09/23/16 16:16 18 09/23/16 16:00 97.8 85 16 117/75 95 09/23/16 12:00 98.0 78 16 109/74 94 I/O 09/23/16 09/23/16 09/23/16 09/24/16 09/24/16 09/24/16 07:00 15:00 23:00 07:00 15:00 23:00 Intake Total 480 ml 960 ml 480 ml 785 ml Output Total 1000 ml 1200 ml Balance 480 ml -40 ml -720 ml 785 ml Intake Oral 480 ml 960 ml 480 ml 480 ml IV Total 305 ml Output Urine Total 1000 ml 1200 ml # Voids 1 2 # Bowel Movements 1 1 1 Result Diagram: 09/23/16 0706 09/23/16 0706 Imaging Last Impressions Liver Ultrasound 09/16/16 0000 Signed Impressions: Service Date/Time: Friday, September 16, 2016 10:51 - CONCLUSION: 1. Liver is mildly enlarged. 2. Status post cholecystectomy. 3. Minimal ascites. Marcell Courtney MD Chest X-Ray 09/16/16 0000 Signed Impressions: Service Date/Time: Friday, September 16, 2016 05:38 - CONCLUSION: 1. Subsegmental atelectasis the left lung base. Right lung clear. Morales Rey MD Lower Extremity Ultrasound 09/12/16 0000 Signed Impressions: Service Date/Time: August 17:55 - CONCLUSION: Negative for DVT. Nonspecific left groin lymph nodes Francois Boothe MD Foot MRI 09/06/16 0000 Signed Impressions: Service Date/Time: Tuesday, September 06, 2016 11:35 - CONCLUSION: Significant abnormality on the medial side of the foot with abnormal signal in the tarsal navicular and first cuneiform. Gonzalo Sears MD FACR Foot X-Ray 09/05/16 0000 Signed Impressions: Service Date/Time: August 23:39 - CONCLUSION: 1. There is no evidence of acute fracture. 2. Soft tissue swelling is present with gas in the soft tissues. No plain film findings of osteomyelitis. If there is necessity for further evaluation contrast-enhanced MRI is recommended. Gaurav Parks MD Ankle X-Ray 09/05/16 0000 Signed Impressions: Service Date/Time: August 23:36 - CONCLUSION: 1. There is no evidence of acute fracture. Gaurav Parks MD Objective Remarks GENERAL: This is a well-nourished, well-developed patient, in no apparent distress. CARDIOVASCULAR: Regular rate and regular rhythm without murmurs, gallops, or rubs. RESPIRATORY: Clear to auscultation. Breath sounds equal bilaterally. No wheezes , rales, or rhonchi. GASTROINTESTINAL: Abdomen soft, non-tender, nondistended. Normal, active bowel sounds MUSCULOSKELETAL: left foot covered with clean dressing. NEURO: Alert & Oriented x4 to person, place, time, situation. Moves all ext x4 Procedures central line placement I/D left foot/ ankle with wound vac placement Medications and IVs Current Medications Sodium Chloride 1,000 ml @ 2,000 mls/hr Q30M ONCE IV Last administered on 09/05 23:55; Start 09/05/16 at 23:22; Stop 09/05/16 at 23:51; Status DC Sodium Chloride (NS 1000 ml Inj) 1,000 ml @ 2,000 mls/hr Q30M ONCE IV Last administered on 09/06/16 00:40; Start 09/05/16 at 23:52; Stop 09/06/16 at 00:21 ; Status DC IV Flush 2 ml 2 ml UNSCH PRN IVF FLUSH AFTER USING IV ACCESS; Start 09/05/16 at 23:30; Stop 09/06/16 at 02:17; Status DC Vancomycin HCl 1000 mg/Sodium Chloride 250 ml @ 250 mls/hr ONCE ONCE IV Last administered on 09/06/16 05:02; Start 09/05/16 at 23:30; Stop 09/06/16 at 00:29 ; Status DC Clindamycin Phosphate/Sodium Chloride (Cleocin Inj/NS Inj) 106 ml @ 212 mls/hr ONCE ONCE IV Last administered on 09/06/16 01:46; Start 09/06/16 at 00:45; Stop 09/06/16 at 01:14; Status DC Insulin Human Regular (NovoLIN R INJ) 7 units ONCE ONCE IV PUSH Last administered on 09/06/16 01:09; Start 09/06/16 at 00:45; Stop 09/06/16 at 00:46 ; Status DC Ondansetron HCl (Zofran Inj) 4 mg ONCE ONCE IV PUSH Last administered on 01:46; Start 09/06/16 at 01:45; Stop 09/06/16 at 01:46; Status DC Hydromorphone HCl 0.5 mg 0.5 mg ONCE ONCE IV PUSH Last administered on 01:46; Start 09/06/16 at 01:45; Stop 09/06/16 at 01:46; Status DC Piperacillin Sod/ Tazobactam Sod 50 ml @ 100 mls/hr ONCE ONCE IV Last administered on 09/06/16 02:27; Start 09/06/16 at 02:00; Stop 09/06/16 at 02:29 ; Status DC Sodium Chloride (NS 1000 ml Inj) 1,000 ml @ 999 mls/hr BOLUS ONCE IV Last administered on 09/06/16 02:17; Start 09/06/16 at 02:00; Stop 09/06/16 at 03:00 ; Status DC IV Flush (NS Flush) 2 ml BID IVF ; Start 09/06/16 at 09:00; Stop 09/06/16 at 09: 00; Status DC IV Flush (NS Flush) 2 ml UNSCH PRN IVF FLUSH AFTER USING IV ACCESS; Start 09/06 at 02:15; Stop 09/06/16 at 02:54; Status DC Hydromorphone HCl 0.5 mg 0.5 mg ONCE ONCE IV PUSH Last administered on 02:33; Start 09/06/16 at 02:30; Stop 09/06/16 at 02:31; Status DC Potassium Chloride/Dextrose/ Sod Cl 1,000 ml @ 125 mls/hr Q8H IV ; Start at 02:30; Stop 09/06/16 at 03:17; Status DC Sodium Chloride (NS 1000 ml Inj) 1,000 ml @ 100 mls/hr Q10H IV Last administered on 09/06/16 05:53; Start 09/06/16 at 02:45; Stop 09/06/16 at 10:19 ; Status DC IV Flush (NS Flush) 2 ml UNSCH PRN FLUSH FLUSH AFTER USING IV ACCESS Last administered on 09/21/16 20:47; Start 09/06/16 at 02:45 IV Flush (NS Flush) 2 ml BID FLUSH Last administered on 09/24/16 08:31; Start 09/06/16 at 09:00 Acetaminophen (Tylenol) 650 mg Q4H PRN PO TEMP > 100.4 Last administered on 09/23 00:32; Start 09/06/16 at 02:45 Ondansetron HCl (Zofran Inj) 4 mg Q6H PRN IVP NAUSEA OR VOMITING Last administered on 09/23/16 23:51; Start 09/06/16 at 02:45 Sennosides (Senokot) 17.2 mg Q12H PRN PO CONSTIPATION; Start 09/06/16 at 02:45 Heparin Sodium (Porcine) (Heparin Inj) 5,000 units Q12H SQ Last administered on 09/24/16 03:49; Start 09/06/16 at 02:45 Naloxone HCl 0.4 mg 0.4 mg UNSCH PRN IV SEE LABEL COMMENTS; Start 09/06/16 at 02:45 Pharmacy Profile Note 0 ml @ 0 mls/hr UNSCH OTHER ; Start 09/06/16 at 02:45; Stop 09/06/16 at 09:07; Status DC Piperacillin Sod/ Tazobactam Sod (Zosyn 3.375 Gm Premix) 50 ml @ 100 mls/hr Q6H IV Last administered on 09/10/16 09:54; Start 09/06/16 at 09:00; Stop at 13:07; Status DC Dextrose (D50w (Vial) Inj) 25 ml UNSCH PRN IV PUSH HYPOGLYCEMIA-SEE COMMENTS Last administered on 09/14/16 18:39; Start 09/06/16 at 02:45 Glucagon (Glucagon Inj) 1 mg UNSCH PRN OTHER HYPOGLYCEMIA-SEE COMMENTS Last administered on 09/23/16 03:43; Start 09/06/16 at 02:45 Insulin Aspart (NovoLOG SUPPLEMENTAL SCALE) 1 ACHS SLIDING SCALE SQ Last administered on 09/07/16 05:28; Start 09/06/16 at 07:00; Stop 09/07/16 at 13:17 ; Status DC Dextrose (D50w (Syr) Inj) 25 ml ONCE ONCE IV ; Start 09/06/16 at 03:45; Stop at 03:46; Status Cancel Dextrose 25 ml 25 ml ONCE ONCE IV Last administered on 09/06/16 03:54; Start 09/06/16 at 04:00; Stop 09/06/16 at 04:01; Status DC Vancomycin HCl/ Sodium Chloride (Vancomycin Inj/ NS 500 ml Inj) 515 ml @ 257.5 mls/ hr Q24H IV ; Start 09/06/16 at 22:00; Stop 09/07/16 at 11:00; Status DC Miscellaneous Information SPECIFIC LAB TO BE LEANDRO... ONCE ONCE XX ; Start at 21:45; Stop 09/08/16 at 21:46; Status Cancel Hydromorphone HCl 1 mg 1 mg ONCE ONCE IV PUSH Last administered on 09/06/16 05:07; Start 09/06/16 at 05:00; Stop 09/06/16 at 05:01; Status DC Pharmacy Profile Note (Vancomycin Consult Pharmacy) 0 ml @ 0 mls/hr UNSCH OTHER ; Start 09/06/16 at 09:15; Stop 09/09/16 at 17:49; Status DC Dextrose (D25w Inj) 10 ml ONCE ONCE IV PUSH ; Start 09/06/16 at 10:00; Stop at 10:03; Status DC Hydromorphone HCl 0.5 mg 0.5 mg Q4H PRN IV PUSH BREAKTHROUGH PAIN Last administered on 09/24/16 10:56; Start 09/06/16 at 10:00 Levofloxacin/ Dextrose (Levaquin 500 Mg Premix Inj) 100 ml @ 100 mls/hr Q24H IV Last administered on 09/07/16 10:00; Start 09/06/16 at 10:00; Stop at 23:49; Status DC Alprazolam (Xanax) 2 mg Q6H PRN PO ANXIETY Last administered on 09/21/16 08:15 ; Start 09/06/16 at 10:00; Stop 09/21/16 at 12:51; Status DC Carbamazepine (TEGretol) 200 mg BID PO Last administered on 09/24/16 08:36; Start 09/06/16 at 21:00 Carisoprodol (Soma) 350 mg QID PRN PO MUSCLE SPASM Last administered on 11:07; Start 09/06/16 at 10:00 Gabapentin (Neurontin) 600 mg Q12HR PO Last administered on 09/07/16 09:07; Start 09/06/16 at 21:00; Stop 09/07/16 at 14:06; Status DC Hydromorphone HCl (Dilaudid) 4 mg Q6H PRN PO PAIN SCALE 1 TO 10 Last administered on 09/08/16 10:12; Start 09/06/16 at 10:00; Stop 09/08/16 at 12:55 ; Status DC Prazosin HCl (Minipress) 1 mg DAILY PO ; Start 09/07/16 at 09:00; Stop 09/07/16 at 14:03; Status DC Promethazine HCl (Phenergan) 25 mg Q6H PRN PO Nausea/Vomiting Last administered on 09/10/16 12:53; Start 09/06/16 at 10:00 Quetiapine Fumarate (SEROquel) 200 mg DAILY PO ; Start 09/07/16 at 09:00; Stop 09/07/16 at 14:05; Status DC Ropinirole HCl 2 mg 2 mg HS PO Last administered on 09/23/16 21:06; Start 09/06 at 21:00 Dextrose/Sodium Chloride 1,000 ml @ 100 mls/hr Q10H IV Last administered on 01:28; Start 09/06/16 at 10:19; Stop 09/07/16 at 14:22; Status DC Lactated Ringer's 1,000 ml @ 30 mls/hr Q24H IV ; Start 09/06/16 at 13:15; Stop 09/06/16 at 16:55; Status DC Sodium Chloride (NS 500 ml Inj) 500 ml @ 30 mls/hr [id number] IV ; Start 09/06/16 at 13:15; Stop 09/07/16 at 13:14; Status DC Insulin Human Regular (NovoLIN R INJ) See Protocol Table ... UNSCH X1 PRN SQ SEE PROTOCOL; Start 09/06/16 at 13:15; Stop 09/06/16 at 16:55; Status DC Metoprolol Tartrate (Lopressor) 25 mg UNSCH X1 PRN PO SEE LABEL COMMENTS; Start 09/06/16 at 13:15; Stop 09/06/16 at 16:55; Status DC Bupivacaine HCl (Marcaine Pf 0.25% Inj) 30 ml STK-MED ONCE .ROUTE ; Start at 13:12; Stop 09/06/16 at 13:13; Status DC Lidocaine HCl (Xylocaine 1% Inj (50 ml)) 50 ml STK-MED ONCE .ROUTE Last administered on 09/06/16t 15:49; Start 09/06/16 at 13:12; Stop 09/06/16 at 13:13 ; Status DC Bupivacaine HCl (Marcaine Pf 0.5% Inj) 30 ml STK-MED ONCE .ROUTE Last administered on 09/06/16t 15:49; Start 09/06/16 at 14:54; Stop 09/06/16 at 14:55 ; Status DC Midazolam HCl (Versed Inj) 4 mg STK-MED ONCE .ROUTE ; Start 09/06/16 at 15:48; Stop 09/06/16 at 15:49; Status DC Fentanyl Citrate (fentaNYL INJ) 250 mcg STK-MED ONCE .ROUTE ; Start 09/06/16 at 15:48; Stop 09/06/16 at 15:49; Status DC IV Flush (NS Flush) 2 ml UNSCH PRN IVF FLUSH AFTER USING IV ACCESS; Start 09/06 at 16:45; Stop 09/06/16 at 16:56; Status DC IV Flush (NS Flush) 2 ml BID IVF ; Start 09/06/16 at 21:00; Stop 09/06/16 at 21: 00; Status DC Miscellaneous Information (Post-op Orders (for Pharmacy)) STAT ONCE XX ; Start 09/06/16 at 16:45; Stop 09/06/16 at 16:54; Status DC Hydromorphone HCl (*DILAUDID PF INJ PERIprocedural ONLY) 1 mg STK-MED ONCE .ROUTE Last administered on 09/06/16 16:41; Start 09/06/16 at 16:41; Stop at 16:42; Status DC Hydromorphone HCl (*DILAUDID PF INJ PERIprocedural ONLY) 1 mg STK-MED ONCE .ROUTE Last administered on 09/06/16 16:48; Start 09/06/16 at 16:48; Stop at 16:49; Status DC Midazolam HCl (Versed Inj) 4 mg STK-MED ONCE .ROUTE ; Start 09/06/16 at 16:51; Stop 09/06/16 at 16:52; Status DC Fentanyl Citrate (fentaNYL INJ) 500 mcg STK-MED ONCE .ROUTE ; Start 09/06/16 at 16:51; Stop 09/06/16 at 16:52; Status DC Fentanyl Citrate (fentaNYL INJ) 200 mcg STK-MED ONCE .ROUTE ; Start 09/06/16 at 16:51; Stop 09/06/16 at 16:52; Status DC Morphine Sulfate (Morphine Inj) 8 mg STK-MED ONCE .ROUTE ; Start 09/06/16 at 16: 51; Stop 09/06/16 at 16:52; Status DC Hydroxyzine HCl (*VISTARIL INJ PERIprocedural ONLY) 25 mg STK-MED ONCE IM Last administered on 09/06/16 16:56; Start 09/06/16 at 16:56; Stop 09/06/16 at 16:57 ; Status DC Hydromorphone HCl (*DILAUDID PF INJ PERIprocedural ONLY) 1 mg STK-MED ONCE .ROUTE Last administered on 09/06/16 16:57; Start 09/06/16 at 16:57; Stop at 16:58; Status DC Neomycin/ Polymyxin 2 ml 2 ml STK-MED ONCE IR Last administered on 09/06/16 16 :00; Start 09/06/16 at 16:00; Stop 09/06/16 at 17:48; Status DC Vancomycin HCl/ Sodium Chloride (Vancomycin Inj/ NS 250 ml Inj) 250 ml @ 250 mls/hr Q12H IV Last administered on 09/09/16 01:32; Start 09/07/16 at 12:00; Stop 09/09/16 at 15:15; Status DC Miscellaneous Information SPECIFIC LAB TO BE LEANDRO... ONCE ONCE XX Last administered on 09/09/16 11:45; Start 09/09/16 at 11:45; Stop 09/09/16 at 11:46 ; Status DC Insulin Human Regular (NovoLIN R SUPPLEMENTAL SCALE) 1 ACHS SLIDING SCALE SQ Last administered on 09/24/16 11:37; Start 09/07/16 at 16:00 Prazosin HCl (Minipress) 2 mg HS PO Last administered on 09/23/16 22:16; Start 09/07/16 at 21:00 Quetiapine Fumarate (SEROquel) 200 mg HS PO Last administered on 09/23/16 21:06 ; Start 09/07/16 at 21:00 Gabapentin (Neurontin) 400 mg BID@09,12 PO Last administered on 09/24/16 11:33 ; Start 09/08/16 at 09:00 Gabapentin (Neurontin) 800 mg HS PO Last administered on 09/23/16 21:06; Start 09/07/16 at 21:00 Insulin Detemir (Levemir Inj) 40 units DAILY SQ ; Start 09/08/16 at 09:00; Stop 09/08/16 at 10:45; Status DC Insulin Detemir 20 units 20 units HS SQ Last administered on 09/07/16 21:49; Start 09/07/16 at 21:00; Stop 09/08/16 at 10:49; Status DC Sodium Chloride (NS 1000 ml Inj) 1,000 ml @ 100 mls/hr Q10H IV Last administered on 09/15/16 03:00; Start 09/07/16 at 15:00; Status Hold Insulin Detemir (Levemir Inj) 10 units Q12HR SQ Last administered on 09/07/16 21:49; Start 09/07/16 at 21:00; Stop 09/08/16 at 10:49; Status DC Calcium Carbonate (Oscal) 500 mg Q12HR PO Last administered on 09/14/16 09:36 ; Start 09/07/16 at 21:00; Stop 09/14/16 at 20:59; Status DC Clindamycin HCl (Cleocin) 450 mg Q6HR PO Last administered on 09/10/16 11:29; Start 09/08/16 at 00:00; Stop 09/10/16 at 13:08; Status DC Bupivacaine HCl (Marcaine Pf 0.5% Inj) 30 ml STK-MED ONCE .ROUTE Last administered on 09/08/16 08:24; Start 09/08/16 at 07:12; Stop 09/08/16 at 07:13 ; Status DC Lidocaine HCl (Xylocaine 1% Inj (50 ml)) 50 ml STK-MED ONCE .ROUTE Last administered on 09/08/16 08:24; Start 09/08/16 at 07:13; Stop 09/08/16 at 07:14 ; Status DC Neomycin/Polymyxin (Neosporin G.u. Irr) 2 ml STK-MED ONCE IR Last administered on 09/08/16 07:18; Start 09/08/16 at 07:18; Stop 09/08/16 at 07:19; Status DC Midazolam HCl (Versed Inj) 2 mg STK-MED ONCE .ROUTE ; Start 09/08/16 at 07:56; Stop 09/08/16 at 07:57; Status DC Fentanyl Citrate (fentaNYL INJ) 250 mcg STK-MED ONCE .ROUTE ; Start 09/08/16 at 07:56; Stop 09/08/16 at 07:57; Status DC Acetaminophen (Ofirmev Inj) 1,000 mg STK-MED ONCE IV ; Start 09/08/16 at 07:56; Stop 09/08/16 at 07:57; Status DC Sugammadex Sodium (Bridion Inj) 200 mg STK-MED ONCE IV PUSH ; Start 09/08/16 at 07:57; Stop 09/08/16 at 07:58; Status DC IV Flush (NS Flush) 2 ml UNSCH PRN IVF FLUSH AFTER USING IV ACCESS; Start 09/08 at 09:00; Stop 09/08/16 at 09:06; Status DC IV Flush (NS Flush) 2 ml BID IVF ; Start 09/08/16 at 09:00; Stop 09/08/16 at 09: 06; Status DC Miscellaneous Information (Post-op Orders (for Pharmacy)) STAT ONCE XX ; Start 09/08/16 at 09:00; Stop 09/08/16 at 09:19; Status DC Hydromorphone HCl (*DILAUDID PF INJ PERIprocedural ONLY) 1 mg STK-MED ONCE .ROUTE Last administered on 09/08/16 09:00; Start 09/08/16 at 09:00; Stop at 09:01; Status DC Morphine Sulfate (Morphine Inj) 4 mg STK-MED ONCE .ROUTE ; Start 09/08/16 at 09: 01; Stop 09/08/16 at 09:02; Status DC Miscellaneous Information ALL NURSING DEPARTME... UNSCH PRN XX SEE LABEL COMMENTS; Start 09/08/16 at 08:55; Stop 09/09/16 at 08:54; Status DC Insulin Detemir (Levemir Inj) 20 units DAILYAC SQ ; Start 09/09/16 at 08:00; Stop 09/09/16 at 11:17; Status DC Insulin Detemir (Levemir Inj) 10 units HS SQ Last administered on 09/22/16 20: 33; Start 09/08/16 at 21:00; Stop 09/23/16 at 07:59; Status DC Hydromorphone HCl (Dilaudid) 4 mg Q4H PRN PO PAIN SCALE 6 TO 10 Last administered on 09/18/16 17:43; Start 09/08/16 at 14:00; Stop 09/21/16 at 12:51; Status DC Hydromorphone HCl (Dilaudid) 2 mg Q4H PRN PO PAIN 4-10 Last administered on 09/24 08:37; Start 09/08/16 at 13:00 Insulin Detemir (Levemir Inj) 30 units DAILYAC SQ Last administered on 09:37; Start 09/10/16 at 08:00; Stop 09/15/16 at 09:29; Status DC Insulin Aspart 3 units 3 units TIDAC SQ Last administered on 09/13/16 17:54; Start 09/09/16 at 12:00; Status Hold Vancomycin HCl/ Sodium Chloride (Vancomycin Inj/ NS 500 ml Inj) 515 ml @ 257.5 mls/ hr Q12H IV ; Start 09/09/16 at 20:00; Stop 09/09/16 at 20:00; Status DC Miscellaneous Information SPECIFIC LAB TO BE DRAWN:VANCOMYCIN TROUGH DATE TO... ONCE ONCE XX ; Start 09/11/16 at 07:45; Stop 09/11/16 at 07:45; Status DC Fluconazole 200 mg 200 mg DAILY PO Last administered on 09/10/16 09:54; Start 09/09/16 at 18:00; Stop 09/10/16 at 13:07; Status DC Lactated Ringer's 1,000 ml @ 30 mls/hr Q24H IV Last administered on 09/11/16 07:30; Start 09/10/16 at 08:30 Sodium Chloride 500 ml @ 30 mls/hr [id number] IV ; Start 09/10/16 at 08:30; Stop 09/11/16 at 08:29; Status DC Dextrose/Sodium Chloride (D5W-NS 1000 ml Inj) 1,000 ml @ 60 mls/hr [id number] IV Last administered on 09/10/16 11:25; Start 09/10/16 at 11:15; Stop 09/11/16 at 03:54; Status DC Acetaminophen (Tylenol Supp) 325 mg Q4H PRN RECTAL fever >100.4 Last administered on 09/10/16 12:21; Start 09/10/16 at 12:00 Propofol (Diprivan 200 Mg/20 ml Inj) 200 mg STK-MED ONCE IV ; Start 09/06/16 at 12:00; Stop 09/10/16 at 12:53; Status DC Ondansetron HCl 4 mg 4 mg STK-MED ONCE IV PUSH ; Start 09/06/16 at 12:00; Stop 09/10/16 at 12:53; Status DC Lactated Ringer's 1,000 ml @ As Directed STK-MED ONCE IV ; Start 09/06/16 at 12 :00; Stop 09/10/16 at 12:53; Status DC Ceftriaxone Sodium 2000 mg/ Sodium Chloride 100 ml @ 200 mls/hr Q24H IV Last administered on 09/11/16 13:42; Start 09/10/16 at 14:00; Stop 09/12/16 at 08:20 ; Status DC Fluconazole/ Sodium Chloride (Diflucan 400 Mg Premix Bag) 200 ml @ 100 mls/hr Q24H IV Last administered on 09/23/16 15:55; Start 09/10/16 at 15:00 Propofol (Diprivan 200 Mg/20 ml Inj) 200 mg STK-MED ONCE IV ; Start 09/08/16 at 12:00; Stop 09/10/16 at 13:13; Status DC Ondansetron HCl 4 mg 4 mg STK-MED ONCE IV PUSH ; Start 09/08/16 at 12:00; Stop 09/10/16 at 13:13; Status DC Lactated Ringer's (Lr 1000 ml Inj) 1,000 ml @ As Directed STK-MED ONCE IV ; Start 09/08/16 at 12:00; Stop 09/10/16 at 13:13; Status DC Fentanyl Citrate (fentaNYL INJ) 250 mcg STK-MED ONCE .ROUTE ; Start 09/11/16 at 07:05; Stop 09/11/16 at 07:06; Status DC Midazolam HCl (Versed Inj) 2 mg STK-MED ONCE .ROUTE ; Start 09/11/16 at 07:16; Stop 09/11/16 at 07:17; Status DC Midazolam HCl (Versed Inj) 2 mg STK-MED ONCE .ROUTE ; Start 09/11/16 at 07:16; Stop 09/11/16 at 07:17; Status DC Bupivacaine HCl (Marcaine Pf 0.5% Inj) 30 ml STK-MED ONCE .ROUTE Last administered on 09/11/16 08:00; Start 09/11/16 at 07:33; Stop 09/11/16 at 07:34 ; Status DC Lidocaine HCl (Xylocaine-Mpf 2% Inj) 30 ml STK-MED ONCE .ROUTE Last administered on 09/11/16 08:00; Start 09/11/16 at 07:33; Stop 09/11/16 at 07:34 ; Status DC Hydromorphone HCl (*DILAUDID PF INJ PERIprocedural ONLY) 1 mg STK-MED ONCE .ROUTE Last administered on 09/11/16 08:58; Start 09/11/16 at 08:58; Stop at 08:59; Status DC Meperidine HCl (*DEMEROL INJ PERIprocedural ONLY) 25 mg STK-MED ONCE .ROUTE Last administered on 09/11/16 09:05; Start 09/11/16 at 09:05; Stop 09/11/16 at 09:06; Status DC Hydromorphone HCl (*DILAUDID PF INJ PERIprocedural ONLY) 1 mg STK-MED ONCE .ROUTE Last administered on 09/11/16 09:12; Start 09/11/16 at 09:12; Stop at 09:13; Status DC Miscellaneous Information ALL NURSING DEPARTME... UNSCH PRN XX SEE LABEL COMMENTS; Start 09/11/16 at 08:49; Stop 09/12/16 at 08:48; Status DC Hydroxyzine HCl (*VISTARIL INJ PERIprocedural ONLY) 25 mg STK-MED ONCE IM Last administered on 09/11/16 09:12; Start 09/11/16 at 09:12; Stop 09/11/16 at 09:13 ; Status DC Insulin Detemir (Levemir Inj) 20 units NOW ONCE SQ Last administered on 12:34; Start 09/11/16 at 11:15; Stop 09/11/16 at 11:16; Status DC Neomycin/Polymyxin (Neosporin G.u. Irr) 1 ml STK-MED ONCE IR Last administered on 09/11/16 08:00; Start 09/11/16 at 08:00; Stop 09/11/16 at 12:34; Status DC Hydromorphone HCl 1 mg 1 mg ONCE ONCE IV PUSH Last administered on 09/12/16 00:35; Start 09/12/16 at 00:00; Stop 09/12/16 at 00:03; Status DC Cefepime HCl 2000 mg/Sodium Chloride 100 ml @ 200 mls/hr Q8H IV Last administered on 09/16/16 08:32; Start 09/12/16 at 10:00; Stop 09/16/16 at 14:09 ; Status DC Pharmacy Profile Note 0 ml @ 0 mls/hr UNSCH OTHER ; Start 09/12/16 at 08:30; Stop 09/17/16 at 19:26; Status DC Vancomycin HCl/ Sodium Chloride (Vancomycin Inj/ NS 500 ml Inj) 515 ml @ 250 mls/hr Q12H IV Last administered on 09/17/16 11:18; Start 09/12/16 at 12:00; Stop 09/17/16 at 19:26; Status DC Miscellaneous Information SPECIFIC LAB TO BE DRAWN:VANCOMYCIN TROUGH DATE TO... ONCE ONCE XX ; Start 09/14/16 at 11:45; Stop 09/14/16 at 11:46; Status DC Propofol (Diprivan 200 Mg/20 ml Inj) 200 mg STK-MED ONCE IV ; Start 09/11/16 at 10:45; Stop 09/12/16 at 10:45; Status DC Neostigmine Methylsulfate (Prostigmin Inj) 3 mg STK-MED ONCE IV ; Start at 10:45; Stop 09/12/16 at 10:45; Status DC Ondansetron HCl (Zofran Inj) 4 mg STK-MED ONCE IV PUSH ; Start 09/11/16 at 10:45 ; Stop 09/12/16 at 10:45; Status DC Miscellaneous Information SPECIFIC LAB TO BE DRAWN:VANCOMYCIN TROUGH DATE TO... ONCE ONCE XX Last administered on 09/14/16 23:45; Start 09/14/16 at 23:45; Stop 09/14/16 at 23:46; Status DC Insulin Detemir (Levemir Inj) 26 units DAILYAC SQ Last administered on 09:00; Start 09/16/16 at 08:00; Stop 09/17/16 at 11:47; Status DC Acetaminophen 650 mg 650 mg Q4H PRN PO SEE LABEL COMMENTS Last administered on 09/16/16 03:35; Start 09/16/16 at 03:30; Stop 09/16/16 at 07:32; Status DC Aztreonam/Sodium Chloride (Azactam Inj/NS Inj) 100 ml @ 200 mls/hr Q8H IV Last administered on 09/17/16 18:00; Start 09/16/16 at 15:00; Stop 09/17/16 at 19:27; Status DC Insulin Detemir (Levemir Inj) 24 units DAILYAC SQ ; Start 09/18/16 at 08:00; Stop 09/18/16 at 11:24; Status DC Miscellaneous Information SPECIFIC LAB TO BE DRAWN:VANCOMYCIN TROUGH DATE TO... ONCE ONCE XX ; Start 09/18/16 at 11:45; Stop 09/18/16 at 11:46; Status Cancel Cefoxitin Sodium/ Sodium Chloride (Mefoxin Inj/NS Inj) 100 ml @ 200 mls/hr Q6H IV Last administered on 09/24/16 11:07; Start 09/17/16 at 23:00 Clarithromycin (Biaxin) 250 mg Q12HR PO Last administered on 09/24/16 08:36; Start 09/17/16 at 21:00 Miscellaneous Medication (ASP Crit: Other exception documentation) 1 UNSCH X1 PRN XX PHARMACY DOCUMENTATION; Start 09/17/16 at 19:30; Stop 09/18/16 at 19:29; Status DC Miscellaneous Medication 1 1 UNSCH X1 PRN XX PHARMACY DOCUMENTATION; Start at 19:30; Stop 09/18/16 at 19:29; Status DC Meropenem/Sodium Chloride (Merrem Inj/NS Inj) 100 ml @ 200 mls/hr Q8H IV Last administered on 09/24/16 06:09; Start 09/17/16 at 22:00 Insulin Detemir (Levemir Inj) 20 units DAILYAC SQ Last administered on 08:51; Start 09/19/16 at 08:00; Stop 09/22/16 at 08:03; Status DC Alprazolam (Xanax) 1 mg Q6H PRN PO ANXIETY Last administered on 09/24/16 08:42 ; Start 09/21/16 at 16:00 Insulin Detemir (Levemir Inj) 16 units DAILYAC SQ Last administered on 08:37; Start 09/23/16 at 08:00 Insulin Detemir (Levemir Inj) 8 units HS SQ Last administered on 09/23/16 21:18 ; Start 09/23/16 at 21:00 A/P Assessment and Plan A/P - Sepsis with Infected diabetic left foot gangrene/necrotizing fasciitis status post I&D- positive blood culture for AFB Abx per ID; started on Meropenem, Cefoxitin, Biaxin and Diflucan repeated blood cultures from 09/18 negative. wound vasc was taken off today. cleared by podiatry for discharge. - Acute increase in transaminitis- will monitor LFT's-abdominal sonogram with mildly enlarged liver and minimal ascites. - Acute on chronic anemia-s/p PRBC transfusion- H/H stable- will monitor H/H -diabetes mellitus with hypoglycemic episode ; will further decrease long- acting insulin and continue accu-check with SSI- continue to hold AC novolog. - Chronic pain syndrome with neck surgery in the past; continue with pain control; suspicious for drug-seeking behavior; will gradually decrease the dose of Dilaudid and Xanax . 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 - History of IV drug abuse in the past . -diarrhea;better- stool for c-diff. pending. -nausea/ vomiting; improved- antiemetics as needed. -DVT prophylaxis with subq Heparin. Discharge Planning not ready for discharge. Uzair Rodriguez MD Sep 24, 2016 11:56
[2016-09-24 12:00] VITALS: BP 102/63; PULSE 102; RESP 18; TEMP 97.6; O2SAT 97
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
== END 2016-09-24 14:31 | disposition left against medical advice (07) | DRG 853 ==
LOC: PHED 21:29 → PHEDA 09-06 02:16 → PHEDH 09-06 06:16 → HSDI 09-06 12:46 → N05A 09-06 17:20 → HOCB 09-21 21:20
PROVIDERS: ADMIT Internal Medicine; ATTEND Internal Medicine
PROC: 3E0T3CZ (ICD-10-PCS; 2016-09-06)
PROC: 0HDNXZZ Extraction of Left Foot Skin, External Approach (ICD-10-PCS; 2016-09-06)
PROC: 0HBNXZZ Excision of Left Foot Skin, External Approach (ICD-10-PCS; principal; 2016-09-08 08:03)
PROC: 0HBLXZZ Excision of Left Lower Leg Skin, External Approach (ICD-10-PCS; 2016-09-11)
PROC: 3E0T3CZ (ICD-10-PCS; 2016-09-11)
DX: A41.59 Other Gram-negative sepsis (principal); M72.6 Necrotizing fasciitis; B37.89 Other sites of candidiasis; E11.52 Type 2 diabetes mellitus with diabetic peripheral angiopathy with gangrene; K31.84 Gastroparesis; E11.43 Type 2 diabetes mellitus with diabetic autonomic (poly)neuropathy; E83.51 Hypocalcemia; L03.116 Cellulitis of left lower limb; J98.11 Atelectasis; M86.9 Osteomyelitis, unspecified; T80.211A Bloodstream infection due to central venous catheter, initial encounter; E11.628 Type 2 diabetes mellitus with other skin complications; E11.65 Type 2 diabetes mellitus with hyperglycemia; G89.4 Chronic pain syndrome; M19.90 Unspecified osteoarthritis, unspecified site; E11.649 Type 2 diabetes mellitus with hypoglycemia without coma; I10 Essential (primary) hypertension; R50.2 Drug induced fever; D64.9 Anemia, unspecified; R74.0 Nonspecific elevation of levels of transaminase and lactic acid dehydrogenase [LDH]; E11.69 Type 2 diabetes mellitus with other specified complication; F11.10 Opioid abuse, uncomplicated; F41.9 Anxiety disorder, unspecified; F43.10 Post-traumatic stress disorder, unspecified; R19.7 Diarrhea, unspecified; V19.3XXA Pedal cyclist (driver) (passenger) injured in unspecified nontraffic accident, initial encounter; Y84.8 Other medical procedures as the cause of abnormal reaction of the patient, or of later complication, without mention of misadventure at the time of the procedure; Y93.55 Activity, bike riding; Z79.4 Long term (current) use of insulin; Z80.0 Family history of malignant neoplasm of digestive organs; Z80.6 Family history of leukemia; Z83.3 Family history of diabetes mellitus; Z88.5 Allergy status to narcotic agent; Z91.19 Patient's noncompliance with other medical treatment and regimen
CPT/HCPCS: 36430; 36556; 71010; 73610; 73630; 73718; 76705; 76937; 80048; 80053; 80074; 80076; 80202; 80307; 81001; 82010; 82565; 82728; 82947; 82948; 83540; 83550; 83605; 83735; 84155; 84703; 85007; 85014; 85018; 85025; 85027; 86140; 86703; 86850; 86900; 86901; 86920; 87015; 87040; 87070; 87077; 87102; 87116; 87176; 87186; 87205; 87206; 93971; 94150; 96361; 96365; 96375; J0131; J0692; J0694; J0696; J1170; J1450; J1610; J1644; J1815; J1956; J2175; J2185; J2250; J2270; J2405; J2543; J2710; J3010; J3370; J3410; J7030; J7040; J7042; J7050; J7120; L3260; P9016; Q0169

== ENCOUNTER 2017-04-08 09:53 | Emergency (ER) | payer MEDICAID ==
[~2017-04-08] VITALS: Ht 170.2 cm; Wt 72.5 kg
[~2017-04-08 09:53] MED LIST changes: +HUMA100I3 SQ; +HUMALOG SQ; +HYDR4TAB PO; -NOVOLOGP2 SQ; +PRAZ1CAP PO; +TEGR200T PO; +WHEEMIS3
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
[2017-04-08 10:46] VITALS: BP 190/84; PULSE 94; RESP 18; TEMP 98.5; O2SAT 100
[2017-04-08 10:58] LABS: BLOOD, URINE NEG (NEG); COMMENT (UR) CULT NOT INDICATED; CULTURE IF INDICATED CULT NOT INDICATED; GLUCOSE,URINE 1000 mg/dL (NEG); KETONE, URINE NEG (NEG); NITRITE,URINE NEG (NEG); SQUAMOUS EPITHELIAL CELL URINE 4 /hpf (0-5); URINE COLOR YELLOW (YELLW/STRAW)
[2017-04-08 11:40] LABS: AUTOMATED NEUTROPHIL # 3.9 TH/MM3 (1.8-7.7); BASOPHIL # 0.1 TH/MM3 (0-0.2); BASOPHIL % 1.2 % (0.0-2.0); EOSINOPHIL # 0.2 TH/MM3 (0-0.4); EOSINOPHIL % 3.2 % (0.0-4.0); HEMATOCRIT 25.8 % (35.0-46.0); HEMO FLAGS DIFF FINAL; LYMPH % 21.4 % (9.0-44.0); LYMPHOCYTE # 1.3 TH/MM3 (1.0-4.8); MEAN CORPUSCULAR HEMOGLOBIN 28.3 PG (27.0-34.0); MEAN CORPUSCULAR HGB CONC 32.5 % (32.0-36.0); MONO % 8.5 % (0.0-8.0); NEUT % 65.7 % (16.0-70.0); PLATELET COUNT 406 TH/MM3 (150-450); RED BLOOD COUNT 2.97 MIL/MM3 (4.00-5.30); RED CELL DISTRIBUTION WIDTH 17.5 % (11.6-17.2); WHITE BLOOD COUNT 5.9 TH/MM3 (4.0-11.0)
[2017-04-08 11:55] LABS: ANION GAP 8 MEQ/L (5-15); AST (GOT) 43 U/L (15-37); BICARBONATE 26.7 MEQ/L (21.0-32.0); BLOOD UREA NITROGEN 15 MG/DL (7-18); CHLORIDE 96 MEQ/L (98-107); GLOMERULAR FILTRATION RATE 74 ML/MIN (>89); POTASSIUM 4.6 MEQ/L (3.5-5.1); SODIUM (NA) 131 MEQ/L (136-145)
[2017-04-08 11:59] LABS: ALKALINE PHOSPHATASE 470 U/L (45-117); ALT (GPT) 31 U/L (10-53); TOTAL BILIRUBIN ADULT 0.3 MG/DL (0.2-1.0)
[2017-04-08 12:00] LABS: ACETAMINOPHEN LESS THAN 2.0 MCG/ML (10.0-30.0); ALCOHOL LESS THAN 3 MG/DL (0-5)
--- NOTE | 2017-04-08 12:39 | PD ---
History of Present Illness Chief Complaint: Medical Clearance Time Seen by Provider: 12:30 Travel History International Travel<30 Days: No Contact w/Intl Traveler<30days: No Known affected area: No Legal Status Legal Status: Ex Parte History of Present Illness: History of Present Illness Patient is a 46-year-old female with no previous psychiatric history with presents emergency Department under an ex parte initiated initiated by her alleging that she has a substance use problem. As per documentation the patient " has been found unconscious on 2 different occasions at home for apparent overdoses on cocaine and heroin. The patient has been to [facility] on May 2016 after she was found unresponsive and it was determined that she unintentionally overdosed on pain medication There are reports that police have been by her house and have noted paraphernalia in the bathroom as well as white powder. She claims that the powder was from her pills which she had crushed because she has difficulty swallowing . The patient states that her does not like her and accuses her because she is threatening and has initiated divorce procedures. She also states that he is afraid that he will be taken to shelter if anything happens to her because [place] from [place]. Patient seen. She is alert, oriented, cooperative female. Appropriately dressed and well groomed. Speech is clear and logical. There is no elza, no psychosis, no suicidal or homicidal ideation. She admits to a past history of cocaine abuse but reports she has not used cocaine in several years. Her current toxicology is negative. The patient denies current overuse of her pain medication or of her anxiety medication. She has narcotic pain medication for treatment of chronic pain after back surgery. PFSH Past Medical History Arthritis: Yes (KNEES, NECK) Blood Disorders: No Anxiety: Yes Heart Rhythm Problems: No Cancer: No Cardiovascular Problems: No Cerebrovascular Accident: No Diabetes: Yes Patient Takes Glucophage: No Diminished Hearing: No Deep Vein Thrombosis: Yes (both arms) Endocrine: Yes Gastrointestinal Disorders: Yes (gasteroparesis) GERD: No Genitourinary: No Hiatal Hernia: No Immune Disorder: No Musculoskeletal: Yes Neurologic: No Psychiatric: Yes (PTSD) Reproductive: No Respiratory: No Immunizations Current: No Myocardial Infarction: No Seizures: Yes Ulcer: No ?: Unknown : 3 Para: 3 Past Surgical History Abdominal Surgery: No Cardiac Surgery: No Ear Surgery: No Endocrine Surgery: No Genitourinary Surgery: No Gynecologic Surgery: Yes (TUBECTOMY/1999) Oral Surgery: No Thoracic Surgery: Yes (Back Surgery) Other Surgery: Yes (cervical spine metal plate) Psychiatric History Psychiatric History Hx Psychiatric Treatment: None r eported Prescribed xanax by her PCP DR. Banegas History of Inpatient Treatment: No Guns or firearms in home: No Social History x 10 years. On disability for medical reasons Hx Alcohol Use: No Hx Tobacco Use: No Hx Substance Use: Yes Substance Use Type: Cocaine (reports last used 2 years ago.) Hx of Substance Use Treatment: No Family Psychiatric History negataive Allergies-Medications (Allergen,Severity, Reaction): Coded Allergies: ketorolac (Unverified Allergy, Severe, Anaphylaxis, 03/04/17) Reported Meds & Prescriptions Reported Meds & Active Scripts Active Reported Humalog Kwikpen Pen Inj (Insulin Lispro (Human) Inj) 300 Unit/3 Ml Pen 5 Units SQ ACHS SLIDING SCALE Humalog Inj (Insulin Human Lispro) 1,000 Unit/10 Ml Vial 5-25 Units SQ ACHS Max dose at bedtime:( )units; sugars < 70,(0)units; sugars 150-199,(5)units; sugars 200-249,(10)units; sugars 250-299,(15)units; sugars 300-349,(20)units; sugars more than 349,(25)units. Hydromorphone (Hydromorphone HCl) 4 Mg Tab 4 Mg PO Q6H PRN Prazosin (Prazosin HCl) 1 Mg Cap 1 Mg PO DAILY Tegretol (Carbamazepine) 200 Mg Tab 200 Mg PO BID Gabapentin 800 Mg Tab 800 Mg PO TID Requip (Ropinirole HCl) 2 Mg Tab 2 Mg PO HS Soma (Carisoprodol) 350 Mg Tab 350 Mg PO QID PRN Alprazolam 2 Mg Tab 2 Mg PO Q6H PRN Lantus Inj (Insulin Glargine) 1,000 Unit/10 Ml Vial 30 Units SQ HS Lantus Inj (Insulin Glargine) 1,000 Unit/10 Ml Vial 40 Units SQ DAILY Seroquel (Quetiapine Fumarate) 200 Mg Tab 200 Mg PO DAILY Review of Systems Musculoskeletal: COMPLAINS OF: Muscle aches, Back pain Psychiatric: COMPLAINS OF: Anxiety Exam Alert: Yes [place]: Person (ox4) Mood: Calm Affect: Appropriate Speech: Clear, Logical Eye Contact: Normal Memory Intact: Comment (No gross abnormality) Hallucinations: Other (negative) Delusions: No Suicidal: Ideation (deneis any) Homicidal: Ideation (deneis any) Insight/Judgement Fair. Not impaired. MDM Medical Decision Making Medical Record Reviewed: Yes Assessment/Plan Patient is a 46-year-old female with no previous psychiatric history with presents emergency Department under an ex parte initiated initiated by her alleging that she has a substance use problem. As per documentation the patient " has been found unconscious on 2 different occasions at home for apparent overdoses on cocaine and heroin. The patient has been to [facility] on May 2016 after she was found unresponsive and it was determined that she unintentionally overdosed on pain medication Patient at this time is calm, clear, does not appear to be under the influence of any substances and current toxicology is negative. She does not present any psychosis, no elza, no suicidal ideation. Does not present any symptom of withdrawal. Denies that she abuses her medication and has been on it x 19 years with out any problems. Based on available evidence it is determined that she does not to meet criteria for involuntary commitment at this time. Case is discussed with Dr. Marcell Doran, automotive salesperson psychiatry who agrees with current disposition. patient is encouraged to seek services at [facility]. Cleared form psychiatry for discharge. Orders Orders Complete Blood Count With Diff (04/08/17 10:26) Comprehensive Metabolic Panel (04/08/17 10:26) Urinalysis - C+S If Indicated (04/08/17 10:26) Psych Screen (04/08/17 10:26) Drug Screen, Random Urine (04/08/17 10:26) Alcohol (Ethanol) (04/08/17 10:26) Salicylates (Aspirin) (04/08/17 10:26) Tylenol (Acetaminophen) (04/08/17 10:26) Ed Urine Pregnancytest Poc (04/08/17 10:26) Vascular Access Team Consult/P PRN (04/08/17 10:40) Vascular Poc Ultrasound (04/08/17 ) Vascular Access Team Consult/P PRN (04/08/17 10:48) Results Vital Signs Date Time Temp Pulse Resp B/P (MAP) Pulse Ox O2 Delivery O2 Flow Rate FiO2 04/08/17 10:46 98.5 94 18 190/84 (119) 100 Room Air Laboratory Tests Test 04/08/17 10:40 04/08/17 11:15 Urine Color YELLOW Urine Turbidity CLEAR Urine pH 6.0 Urine Specific [place] 1.024 Urine Protein TRACE Urine Glucose (UA) 1000 Urine Ketones NEG Urine Occult Blood NEG Urine Nitrite NEG Urine Bilirubin NEG Urine Urobilinogen LESS THAN 2.0 Urine Leukocyte Esterase NEG Urine RBC 1 Urine WBC 2 Urine Squamous Epithelial Cells 4 Microscopic Urinalysis Comment CULT NOT INDICATED Urine Opiates Screen NEG Urine Barbiturates Screen NEG Urine Amphetamines Screen NEG Urine Benzodiazepines Screen NEG Urine Cocaine Screen NEG Urine Cannabinoids Screen NEG White Blood Count 5.9 Red Blood Count 2.97 Hemoglobin 8.4 Hematocrit 25.8 Mean Corpuscular Volume 87.0 Mean Corpuscular Hemoglobin 28.3 Mean Corpuscular Hemoglobin Concent 32.5 Red Cell Distribution Width 17.5 Platelet Count 406 Mean Platelet Volume 8.6 Neutrophils (%) (Auto) 65.7 Lymphocytes (%) (Auto) 21.4 Monocytes (%) (Auto) 8.5 Eosinophils (%) (Auto) 3.2 Basophils (%) (Auto) 1.2 Neutrophils # (Auto) 3.9 Lymphocytes # (Auto) 1.3 Monocytes # (Auto) 0.5 Eosinophils # (Auto) 0.2 Basophils # (Auto) 0.1 CBC Comment DIFF FINAL Differential Comment Blood Urea Nitrogen 15 Creatinine 0.83 Random Glucose 304 Total Protein 7.6 Albumin 3.1 Calcium Level 9.0 Alkaline Phosphatase 470 Aspartate Amino Transf (AST/SGOT) 43 Alanine Aminotransferase (ALT/SGPT) 31 Total Bilirubin 0.3 Sodium Level 131 Potassium Level 4.6 Chloride Level 96 Carbon Dioxide Level 26.7 Anion Gap 8 Estimat Glomerular Filtration Rate 74 Salicylates Level LESS THAN 1.7 Acetaminophen Level LESS THAN 2.0 Ethyl Alcohol Level LESS THAN 3 Diagnosis Primary Impression: Opiate dependence Psychiatrically Cleared: Yes Med/ Other Pt Specific Info: No Change to Meds Disposition: 01 DISCHARGE HOME Condition: Stable Problem Qualifiers Primary Impression: Opiate dependence Qualified Codes: F11.20 - Opioid dependence, uncomplicated Georgie Puri [facility] Apr 08, 2017 12:39
--- NOTE | 2017-04-08 13:16 | PD ---
History of Present Illness Chief Complaint: Medical Clearance Travel History International Travel<30 Days: No Contact w/Intl Traveler<30days: No Known affected area: No Legal Status Legal Status: [facility] Past Medical History Arthritis: Yes (KNEES, NECK) Blood Disorders: No Anxiety: Yes Heart Rhythm Problems: No Cancer: No Cardiovascular Problems: No Cerebrovascular Accident: No Diabetes: Yes Patient Takes Glucophage: No Diminished Hearing: No Deep Vein Thrombosis: Yes (both arms) Endocrine: Yes Gastrointestinal Disorders: Yes (gasteroparesis) GERD: No Genitourinary: No Hiatal Hernia: No Immune Disorder: No Musculoskeletal: Yes Neurologic: No Psychiatric: Yes (PTSD) Reproductive: No Respiratory: No Immunizations Current: No Myocardial Infarction: No Seizures: Yes Ulcer: No ?: Unknown : 3 Para: 3 Past Surgical History Abdominal Surgery: No Cardiac Surgery: No Ear Surgery: No Endocrine Surgery: No Genitourinary Surgery: No Gynecologic Surgery: Yes (TUBECTOMY/1999) Oral Surgery: No Thoracic Surgery: Yes (Back Surgery) Other Surgery: Yes (cervical spine metal plate) Psychiatric History Social History Hx Alcohol Use: No Hx Tobacco Use: No Hx Substance Use: Yes Allergies-Medications (Allergen,Severity, Reaction): Coded Allergies: ketorolac (Unverified Allergy, Severe, Anaphylaxis, 03/04/17) Reported Meds & Prescriptions Reported Meds & Active Scripts Active Reported Humalog Kwikpen Pen Inj (Insulin Lispro (Human) Inj) 300 Unit/3 Ml Pen 5 Units SQ ACHS SLIDING SCALE Humalog Inj (Insulin Human Lispro) 1,000 Unit/10 Ml Vial 5-25 Units SQ ACHS Max dose at bedtime:( )units; sugars < 70,(0)units; sugars 150-199,(5)units; sugars 200-249,(10)units; sugars 250-299,(15)units; sugars 300-349,(20)units; sugars more than 349,(25)units. Hydromorphone (Hydromorphone HCl) 4 Mg Tab 4 Mg PO Q6H PRN Prazosin (Prazosin HCl) 1 Mg Cap 1 Mg PO DAILY Tegretol (Carbamazepine) 200 Mg Tab 200 Mg PO BID Gabapentin 800 Mg Tab 800 Mg PO TID Requip (Ropinirole HCl) 2 Mg Tab 2 Mg PO HS Soma (Carisoprodol) 350 Mg Tab 350 Mg PO QID PRN Alprazolam 2 Mg Tab 2 Mg PO Q6H PRN Lantus Inj (Insulin Glargine) 1,000 Unit/10 Ml Vial 30 Units SQ HS Lantus Inj (Insulin Glargine) 1,000 Unit/10 Ml Vial 40 Units SQ DAILY Seroquel (Quetiapine Fumarate) 200 Mg Tab 200 Mg PO DAILY MDM Medical Decision Making Assessment/Plan Case consulted with Dr. Marcell Doran, early childhood education coordinator psychiatrist. Patient does not meet criteria for involuntary. Cleared for discharge for psychiatrist Orders Orders Complete Blood Count With Diff (04/08/17 10:26) Comprehensive Metabolic Panel (04/08/17 10:26) Urinalysis - C+S If Indicated (04/08/17 10:26) Psych Screen (04/08/17 10:26) Drug Screen, Random Urine (04/08/17 10:26) Alcohol (Ethanol) (04/08/17 10:26) Salicylates (Aspirin) (04/08/17 10:26) Tylenol (Acetaminophen) (04/08/17 10:26) Ed Urine Pregnancytest Poc (04/08/17 10:26) Vascular Access Team Consult/P PRN (04/08/17 10:40) Vascular Poc Ultrasound (04/08/17 ) Vascular Access Team Consult/P PRN (04/08/17 10:48) Results Vital Signs Date Time Temp Pulse Resp B/P (MAP) Pulse Ox O2 Delivery O2 Flow Rate FiO2 04/08/17 10:46 98.5 94 18 190/84 (119) 100 Room Air Laboratory Tests Test 04/08/17 10:40 04/08/17 11:15 Urine Color YELLOW Urine Turbidity CLEAR Urine pH 6.0 Urine Specific [place] 1.024 Urine Protein TRACE Urine Glucose (UA) 1000 Urine Ketones NEG Urine Occult Blood NEG Urine Nitrite NEG Urine Bilirubin NEG Urine Urobilinogen LESS THAN 2.0 Urine Leukocyte Esterase NEG Urine RBC 1 Urine WBC 2 Urine Squamous Epithelial Cells 4 Microscopic Urinalysis Comment CULT NOT INDICATED Urine Opiates Screen NEG Urine Barbiturates Screen NEG Urine Amphetamines Screen NEG Urine Benzodiazepines Screen NEG Urine Cocaine Screen NEG Urine Cannabinoids Screen NEG White Blood Count 5.9 Red Blood Count 2.97 Hemoglobin 8.4 Hematocrit 25.8 Mean Corpuscular Volume 87.0 Mean Corpuscular Hemoglobin 28.3 Mean Corpuscular Hemoglobin Concent 32.5 Red Cell Distribution Width 17.5 Platelet Count 406 Mean Platelet Volume 8.6 Neutrophils (%) (Auto) 65.7 Lymphocytes (%) (Auto) 21.4 Monocytes (%) (Auto) 8.5 Eosinophils (%) (Auto) 3.2 Basophils (%) (Auto) 1.2 Neutrophils # (Auto) 3.9 Lymphocytes # (Auto) 1.3 Monocytes # (Auto) 0.5 Eosinophils # (Auto) 0.2 Basophils # (Auto) 0.1 CBC Comment DIFF FINAL Differential Comment Blood Urea Nitrogen 15 Creatinine 0.83 Random Glucose 304 Total Protein 7.6 Albumin 3.1 Calcium Level 9.0 Alkaline Phosphatase 470 Aspartate Amino Transf (AST/SGOT) 43 Alanine Aminotransferase (ALT/SGPT) 31 Total Bilirubin 0.3 Sodium Level 131 Potassium Level 4.6 Chloride Level 96 Carbon Dioxide Level 26.7 Anion Gap 8 Estimat Glomerular Filtration Rate 74 Salicylates Level LESS THAN 1.7 Acetaminophen Level LESS THAN 2.0 Ethyl Alcohol Level LESS THAN 3 Diagnosis Primary Impression: Substance abuse Psychiatrically Cleared: Yes Referrals: [facility] Forms: Tests/Procedures Patient Instructions: General Instructions, Polysubstance Abuse (ED) Disposition: 01 DISCHARGE HOME Condition: Stable Georgie Puri Apr 08, 2017 13:16
== END 2017-04-08 13:30 | disposition home or self-care (01) ==
LOC: NEPD 09:53
DX: F11.20 Opioid dependence, uncomplicated (principal); D64.9 Anemia, unspecified; E11.65 Type 2 diabetes mellitus with hyperglycemia; M13.869 Other specified arthritis, unspecified knee; M13.88 Other specified arthritis, other site; F41.9 Anxiety disorder, unspecified; E11.43 Type 2 diabetes mellitus with diabetic autonomic (poly)neuropathy; K31.84 Gastroparesis; Z86.718 Personal history of other venous thrombosis and embolism
CPT/HCPCS: 80053; 80307; 81001; 84703; 85025; 99283

== ENCOUNTER 2017-06-22 21:34 | Inpatient (IN) | payer MEDICAID ==
[~2017-06-22] VITALS: Ht 162.6 cm; Wt 69.8 kg
[2017-06-22 21:34] VITALS: BP 147/84; PULSE 107; RESP 20; TEMP 97.8; O2SAT 89; O2SAT 92
[~2017-06-22 21:34] MED LIST changes: -PROM25TA5 PO; -WHEEMIS3
--- NOTE | 2017-06-22 21:39 | PD ---
HPI Chief Complaint: overdose Time Seen by Provider: 21:36 Travel History International Travel<30 days: No Contact w/Intl Traveler<30days: No Traveled to known affect area: No History of Present Illness HPI The patient is a 46-year-old female who presents to the emergency department via EMS after an overdose. According to EMS the patient's found the patient in the bathroom, unconscious, apparently not breathing. The started CPR call 911. When the police arrived they did CPR for several minutes until EMS arrived. EMS states when they arrived the patient had agonal respirations. They were unable to place an IV, however, were able to place an IO in the right lower extremity. EMS states the patient's initial blood sugar was 2:15 and they administered Narcan 2 mg through the IO. EMS states the patient's GCS went from 3-14. Upon arrival the patient was a GCS of 15. The patient states she is prescribed morphine extended release 30 mg 4 times a day for chronic pain. The patient states that she took apart and snorted 1 30 milligram tablet at approximately 8 PM. 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 The patient does complain of mild chest pain and shortness of breath. EMS states the patient's O2 saturation on room air was in the 70s prior to arrival. PFSH Past Medical History Arthritis: Yes (KNEES, NECK) Blood Disorders: No Anxiety: Yes Heart Rhythm Problems: No Cancer: No Cardiovascular Problems: No Cerebrovascular Accident: No Diabetes: Yes Diminished Hearing: No Deep Vein Thrombosis: Yes (both arms) Endocrine: Yes Gastrointestinal Disorders: Yes (gasteroparesis) GERD: No Genitourinary: No Hiatal Hernia: No Immune Disorder: No Musculoskeletal: Yes Neurologic: No Psychiatric: Yes (PTSD) Reproductive: No Respiratory: No Immunizations Current: No Myocardial Infarction: No Seizures: Yes Ulcer: No : 3 Para: 3 Past Surgical History Abdominal Surgery: No Cardiac Surgery: No Ear Surgery: No Endocrine Surgery: No Genitourinary Surgery: No Gynecologic Surgery: Yes (TUBECTOMY/1999) Oral Surgery: No Thoracic Surgery: Yes (Back Surgery) Other Surgery: Yes (cervical spine metal plate) Social History Alcohol Use: No Tobacco Use: No Substance Use: Yes Allergies-Medications (Allergen,Severity, Reaction): Coded Allergies: ketorolac (Unverified Allergy, Severe, Anaphylaxis, 03/04/17) Reported Meds & Prescriptions Reported Meds & Active Scripts Active Reported Humalog Kwikpen Pen Inj (Insulin Lispro (Human) Inj) 300 Unit/3 Ml Pen 5 Units SQ ACHS SLIDING SCALE Humalog Inj (Insulin Human Lispro) 1,000 Unit/10 Ml Vial 5-25 Units SQ ACHS Max dose at bedtime:( )units; sugars < 70,(0)units; sugars 150-199,(5)units; sugars 200-249,(10)units; sugars 250-299,(15)units; sugars 300-349,(20)units; sugars more than 349,(25)units. Hydromorphone (Hydromorphone HCl) 4 Mg Tab 4 Mg PO Q6H PRN Prazosin (Prazosin HCl) 1 Mg Cap 1 Mg PO DAILY Tegretol (Carbamazepine) 200 Mg Tab 200 Mg PO BID Gabapentin 800 Mg Tab 800 Mg PO TID Requip (Ropinirole HCl) 2 Mg Tab 2 Mg PO HS Soma (Carisoprodol) 350 Mg Tab 350 Mg PO QID PRN Alprazolam 2 Mg Tab 2 Mg PO Q6H PRN Lantus Inj (Insulin Glargine) 1,000 Unit/10 Ml Vial 30 Units SQ HS Lantus Inj (Insulin Glargine) 1,000 Unit/10 Ml Vial 40 Units SQ DAILY Seroquel (Quetiapine Fumarate) 200 Mg Tab 200 Mg PO DAILY Review of Systems Except as stated in HPI: all other systems reviewed are Neg General / Constitutional: No: Fever HENT: No: Lightheadedness Cardiovascular: Positive: Chest Pain or Discomfort Respiratory: Positive: Shortness of Breath Gastrointestinal: No: Nausea, Vomiting, Abdominal Pain Musculoskeletal: Positive: Pain Psychiatric: Positive: Substance Abuse (patient admits to snorting her extended release morphine earlier tonight), No: Suicidal Ideations Physical Exam Narrative GENERAL: Awake, alert, 46-year-old female who appears her stated age and is in no acute respiratory distress. SKIN: Focused skin assessment warm/dry. Skin grafting noted to the left upper extremity as well as the left lower extremity. HEAD: Atraumatic. Normocephalic. EYES: Pupils equal and round. Pupils are 3 mm bilateral and reactive. EOMs are intact. ENT: No nasal bleeding or discharge. Mucous membranes pink and moist. NECK: Trachea midline. No JVD. CARDIOVASCULAR: Regular, tachycardic with a heart rate of 110. RESPIRATORY: Mild tachypnea with a respiratory rate of 22. Bronchitis in the bases bilaterally. GASTROINTESTINAL: Abdomen soft, non-tender, nondistended. No rebound tenderness. MUSCULOSKELETAL: No obvious deformities. No clubbing. No cyanosis. No edema. NEUROLOGICAL: Awake and alert. No obvious cranial nerve deficits. Motor grossly within normal limits. Normal speech. Patient is oriented to person, place, month, and year. PSYCHIATRIC: Appropriate mood and affect; insight and judgment normal. Data Data Last Documented VS Vital Signs Date Time Temp Pulse Resp B/P (MAP) Pulse Ox O2 Delivery O2 Flow Rate FiO2 06/22/17 22:35 97 20 132/68 (89) 97 06/22/17 22:29 Nasal Cannula 4.00 Orders Orders Electrocardiogram (06/22/17 21:37) Complete Blood Count With Diff (06/22/17 21:37) Comprehensive Metabolic Panel (06/22/17 21:37) Prothrombin Time / Inr (Pt) (06/22/17 21:37) Act Partial Throm Time (Ptt) (06/22/17 21:37) Urinalysis - C+S If Indicated (06/22/17 21:37) Chest, Single Ap (06/22/17 21:37) Arterial Blood Gas (Abg) (06/22/17 21:37) Blood Glucose (06/22/17 21:37) Iv Access Insert/Monitor (06/22/17 21:37) Ecg Monitoring (06/22/17 21:37) Oximetry (06/22/17 21:37) Oxygen Administration (06/22/17 21:37) Sodium Chloride 0.9% Flush (Ns Flush) (06/22/17 21:45) Drug Screen, Random Urine (06/22/17 21:37) Alcohol (Ethanol) (06/22/17 21:37) Salicylates (Aspirin) (06/22/17 21:37) Tylenol (Acetaminophen) (06/22/17 21:37) Creatine Kinase (Cpk) (06/22/17 21:39) Troponin I (06/22/17 21:39) Sodium Chlorid 0.9% 500 Ml Inj (Ns 500 M (06/22/17 22:30) Ceftriaxone Inj (Rocephin Inj) (06/22/17 23:00) Admit Order (Ed Use Only) (06/22/17 23:07) Labs Laboratory Tests Test 06/22/17 21:42 06/22/17 21:55 06/22/17 22:25 Blood Gas Puncture Site RT RADIAL Blood Gas Patient Temperature 98.6 Blood Gas HCO3 23 mmol/L Blood Gas Base Excess -1.5 mmol/L Blood Gas Oxygen Saturation 92 % Arterial Blood pH 7.35 Arterial Blood Partial Pressure CO2 43 mmHG Arterial Blood Partial Pressure O2 75 mmHG Arterial Blood Oxygen Content 9.8 Vol % Arterial Blood Carboxyhemoglobin 1.3 % Arterial Blood Methemoglobin 0.9 % Blood Gas Hemoglobin 7.5 G/DL Oxygen Delivery Device NASAL CANNULA Blood Gas Liter Flow 6 L/M White Blood Count 19.3 TH/MM3 Red Blood Count 2.63 MIL/MM3 Hemoglobin 8.0 GM/DL Hematocrit 24.7 % Mean Corpuscular Volume 93.9 FL Mean Corpuscular Hemoglobin 30.5 PG Mean Corpuscular Hemoglobin Concent 32.5 % Red Cell Distribution Width 15.2 % Platelet Count 591 TH/MM3 Mean Platelet Volume 7.9 FL Neutrophils (%) (Auto) 91.2 % Lymphocytes (%) (Auto) 4.0 % Monocytes (%) (Auto) 1.3 % Eosinophils (%) (Auto) 2.6 % Basophils (%) (Auto) 0.9 % Neutrophils # (Auto) 17.5 TH/MM3 Lymphocytes # (Auto) 0.8 TH/MM3 Monocytes # (Auto) 0.3 TH/MM3 Eosinophils # (Auto) 0.5 TH/MM3 Basophils # (Auto) 0.2 TH/MM3 CBC Comment DIFF FINAL Differential Comment Prothrombin Time 10.7 SEC Prothromb Time International Ratio 1.0 RATIO Activated Partial Thromboplast Time 29.7 SEC Blood Urea Nitrogen 21 MG/DL Creatinine 2.40 MG/DL Random Glucose 237 MG/DL Total Protein 6.9 GM/DL Albumin 2.4 GM/DL Calcium Level 7.9 MG/DL Alkaline Phosphatase 402 U/L Aspartate Amino Transf (AST/SGOT) 31 U/L Alanine Aminotransferase (ALT/SGPT) 20 U/L Total Bilirubin 0.2 MG/DL Sodium Level 136 MEQ/L Potassium Level 4.6 MEQ/L Chloride Level 104 MEQ/L Carbon Dioxide Level 23.5 MEQ/L Anion Gap 9 MEQ/L Estimat Glomerular Filtration Rate 22 ML/MIN Total Creatine Kinase 75 U/L Troponin I LESS THAN 0.02 NG/ML Salicylates Level LESS THAN 1.7 MG/DL Acetaminophen Level 5.6 MCG/ML Ethyl Alcohol Level LESS THAN 3 MG/DL Urine pH 6.0 Urine Protein TRACE mg/dL Urine Glucose (UA) 250 mg/dL Urine Ketones NEG mg/dL Urine Occult Blood LARGE Urine Nitrite NEG Urine Bilirubin NEG Urine Leukocyte Esterase LARGE Urine Opiates Screen POS Urine Barbiturates Screen NEG Urine Amphetamines Screen NEG Urine Benzodiazepines Screen POS Urine Cocaine Screen NEG Urine Cannabinoids Screen NEG MDM Medical Decision Making Medical Screen Exam Complete: Yes Emergency Medical Condition: Yes Medical Record Reviewed: Yes Interpretation(s) EKG reveals normal sinus rhythm with a rate in 91. No ischemic changes or ectopy noted. Chest x-ray reveals no evidence of acute cardiopulmonary disease. Laboratory Tests Test 06/22/17 21:42 06/22/17 21:55 06/22/17 22:25 Blood Gas Puncture Site RT RADIAL Blood Gas Patient Temperature 98.6 Blood Gas HCO3 23 mmol/L Blood Gas Base Excess -1.5 mmol/L Blood Gas Oxygen Saturation 92 % Arterial Blood pH 7.35 Arterial Blood Partial Pressure CO2 43 mmHG Arterial Blood Partial Pressure O2 75 mmHG Arterial Blood Oxygen Content 9.8 Vol % Arterial Blood Carboxyhemoglobin 1.3 % Arterial Blood Methemoglobin 0.9 % Blood Gas Hemoglobin 7.5 G/DL Oxygen Delivery Device NASAL CANNULA Blood Gas Liter Flow 6 L/M White Blood Count 19.3 TH/MM3 Red Blood Count 2.63 MIL/MM3 Hemoglobin 8.0 GM/DL Hematocrit 24.7 % Mean Corpuscular Volume 93.9 FL Mean Corpuscular Hemoglobin 30.5 PG Mean Corpuscular Hemoglobin Concent 32.5 % Red Cell Distribution Width 15.2 % Platelet Count 591 TH/MM3 Mean Platelet Volume 7.9 FL Neutrophils (%) (Auto) 91.2 % Lymphocytes (%) (Auto) 4.0 % Monocytes (%) (Auto) 1.3 % Eosinophils (%) (Auto) 2.6 % Basophils (%) (Auto) 0.9 % Neutrophils # (Auto) 17.5 TH/MM3 Lymphocytes # (Auto) 0.8 TH/MM3 Monocytes # (Auto) 0.3 TH/MM3 Eosinophils # (Auto) 0.5 TH/MM3 Basophils # (Auto) 0.2 TH/MM3 CBC Comment DIFF FINAL Differential Comment Prothrombin Time 10.7 SEC Prothromb Time International Ratio 1.0 RATIO Activated Partial Thromboplast Time 29.7 SEC Blood Urea Nitrogen 21 MG/DL Creatinine 2.40 MG/DL Random Glucose 237 MG/DL Total Protein 6.9 GM/DL Albumin 2.4 GM/DL Calcium Level 7.9 MG/DL Alkaline Phosphatase 402 U/L Aspartate Amino Transf (AST/SGOT) 31 U/L Alanine Aminotransferase (ALT/SGPT) 20 U/L Total Bilirubin 0.2 MG/DL Sodium Level 136 MEQ/L Potassium Level 4.6 MEQ/L Chloride Level 104 MEQ/L Carbon Dioxide Level 23.5 MEQ/L Anion Gap 9 MEQ/L Estimat Glomerular Filtration Rate 22 ML/MIN Total Creatine Kinase 75 U/L Troponin I LESS THAN 0.02 NG/ML Ethyl Alcohol Level LESS THAN 3 MG/DL Urine pH 6.0 Urine Protein TRACE mg/dL Urine Glucose (UA) 250 mg/dL Urine Ketones NEG mg/dL Urine Occult Blood LARGE Urine Nitrite NEG Urine Bilirubin NEG Urine Leukocyte Esterase LARGE Urine Barbiturates Screen NEG Urine Benzodiazepines Screen POS Urine Cocaine Screen NEG Urine Cannabinoids Screen NEG Differential Diagnosis Differential diagnosis includes intentional overdose, accidental overdose, substance abuse, overdose of analgesic, opiate dependence, aspiration pneumonia , ACS, flash pulmonary edema, pleural effusion. Narrative Course IV was established, labs are drawn and sent, and the patient was placed on cardiac telemetry monitoring and continuous pulse oximetry monitoring. EKG was ordered and interpreted. Chest x-ray was obtained. Bedside Accu-Chek was 266. Nursing staff was unable to obtain IV axis, therefore, placed a 20-gauge 1.88 inch ultrasound-guided IV in the right upper extremity. ABG reveals a pH is 7.352 with a PCO2 43.0 and a PO2 sitting 4.5 on 6 L of oxygen. The patient's hemoglobin was 7.5 on ABG. I reviewed the EMR, the patient has a recent history of anemia with hemoglobin the ranges from 6.9-8.4. The patient's hemoglobin was 8.0. Creatinine is elevated at 2.4, the patient was administered normal saline 500 cc after chest x-ray was reviewed. Chest x-ray does not reveal any obvious pulmonary edema or pneumonia. However, the patient did snort extended release morphine, may need multiple doses of Narcan overnight until the extended release morphine has metabolized. As the patient is hypoxic and may need further administration the patient will be placed in intensive care unit. The on-call laborer general was paged for admission at 10:32 PM. I had a discussion with the patient regarding her anemia. The patient states she was diagnosed with iron deficiency anemia one year ago was placed on iron pills. She does state she underwent endoscopy and colonoscopy, no evidence of bleeding. She does have a history of chronic kidney disease, states her creatinine was elevated, as high as 9 at one time. The patient did see a supply chain buyer at that time. She states the creatinine at 2.4 has improved from her previous creatinine of 9. She denies any history of hemodialysis. The patient was reevaluated at 10:36 PM. She still awake and alert, still required 6 L of oxygen for an O2 sat of 95%. The patient's temperature was 97.8, no evidence of fever. White count is elevated at 19.3, may be secondary to therapeutic overdose and CPR administration. Procedures Procedure Narrative I placed a 20-gauge, 1.88 inch, ultrasound-guided IV in the right upper extremity using a linear probe. There was good blood return and the IV flowed easily. The patient tolerated the procedure without difficulty and there was no obvious complications. Physician Communication Physician Communication The on-call laborer general was paged for admission. I discussed the patient with Dr. Conrad who agrees with admission. Diagnosis Primary Impression: Opiate overdose Qualified Codes: T40.601A - Poisoning by unspecified narcotics, accidental ( unintentional), initial encounter Additional Impressions: Hypoxia Acute kidney injury Anemia Qualified Codes: D50.9 - Iron deficiency anemia, unspecified Admitting Information Admitting Physician Requests: Admit Condition: Stable Parmjit Castano MD Jun 22, 2017 21:39
[2017-06-22] MEDS ORDERED: SODIUM CHLORIDE 0.9% FLUSH 10 ML FLUSH IVF PRN (21:45)
[2017-06-22 21:57] LABS: BLOOD GAS BASE EXCESS -1.5 mmol/L (-2-2); BLOOD GAS CARBOXYHEMOGLOBIN 1.3 % (0-4); BLOOD GAS HCO3 23 mmol/L (22-26); BLOOD GAS METHEMOGLOBIN 0.9 % (0-2); BLOOD GAS O2 HGB SATURATION 92 % (90-100); BLOOD GAS OXYGEN CONTENT 9.8 Vol % (12.0-20.0); BLOOD GAS PCO2 43 mmHG (38-42); BLOOD GAS PO2 75 mmHG (61-120); BLOOD GAS TOTAL HGB 7.5 G/DL (12.0-16.0); CRITICAL VALUE YES; OXYGEN DEVICE NASAL CANNULA; TEMP CORR TO 98.6
[2017-06-22 21:58] LABS: DRAW SITE RT RADIAL; LITER FLOW 6 L/M; NUMBER OF ARTERIAL PUNCTURES 1; STAT YES; ULNAR PULSE PRESENT
[2017-06-22 22:00] VITALS: BP 138/72; PULSE 108; RESP 16; O2SAT 97
[2017-06-22 22:15] LABS: CHLORIDE 104 MEQ/L (98-107); POTASSIUM 4.6 MEQ/L (3.5-5.1); SODIUM (NA) 136 MEQ/L (136-145)
[2017-06-22 22:17] LABS: AUTOMATED NEUTROPHIL # 17.5 TH/MM3 (1.8-7.7); BASOPHIL # 0.2 TH/MM3 (0-0.2); BASOPHIL % 0.9 % (0.0-2.0); EOSINOPHIL # 0.5 TH/MM3 (0-0.4); EOSINOPHIL % 2.6 % (0.0-4.0); HEMATOCRIT 24.7 % (35.0-46.0); LYMPHOCYTE # 0.8 TH/MM3 (1.0-4.8); MEAN CELL VOLUME 93.9 FL (80.0-100.0); MEAN CORPUSCULAR HEMOGLOBIN 30.5 PG (27.0-34.0); MEAN CORPUSCULAR HGB CONC 32.5 % (32.0-36.0); MONO % 1.3 % (0.0-8.0); NEUT % 91.2 % (16.0-70.0); PLATELET COUNT 591 TH/MM3 (150-450); RED BLOOD COUNT 2.63 MIL/MM3 (4.00-5.30); RED CELL DISTRIBUTION WIDTH 15.2 % (11.6-17.2); WHITE BLOOD COUNT 19.3 TH/MM3 (4.0-11.0)
[2017-06-22 22:18] LABS: HEMO FLAGS DIFF FINAL
[2017-06-22 22:19] LABS: ANION GAP 9 MEQ/L (5-15); BICARBONATE 23.5 MEQ/L (21.0-32.0); BLOOD UREA NITROGEN 21 MG/DL (7-18)
[2017-06-22 22:20] LABS: ALCOHOL LESS THAN 3 MG/DL (0-5)
[2017-06-22 22:22] LABS: ALT (GPT) 20 U/L (10-53); APTT (PATIENT) 29.7 SEC (24.3-30.1); AST (GOT) 31 U/L (15-37); GLOMERULAR FILTRATION RATE 22 ML/MIN (>89); PROTHROMBIN TIME - PATIENT 10.7 SEC (9.8-11.6)
[2017-06-22 22:23] LABS: TOTAL BILIRUBIN ADULT 0.2 MG/DL (0.2-1.0)
[2017-06-22 22:24] LABS: ALKALINE PHOSPHATASE 402 U/L (45-117)
[2017-06-22] MEDS ORDERED: SODIUM CHLORID 0.9% 500 ML INJ 500 ML IV ONE (22:30)
[2017-06-22 22:35] VITALS: BP 132/68; PULSE 97; RESP 20; O2SAT 97
--- NOTE | 2017-06-22 22:36 | RADRPT ---
EXAM DATE/TIME: 06/22/2017 22:24 [facility] COMPARISON: CHEST SINGLE AP, September 16, 2016, 5:38. INDICATIONS : Shortness of breath. MEDICAL HISTORY : Myocardial infarction. Diabetes mellitus type II. SURGICAL HISTORY : None. ENCOUNTER: Initial ACUITY: 1 day PAIN SCORE: 0/10 LOCATION: Bilateral chest FINDINGS: A single view of the chest demonstrates the lungs to be symmetrically aerated without evidence of mas s, infiltrate or effusion. The cardiomediastinal contours are unremarkable. Osseous structures are intact. CONCLUSION: No evidence of acute cardiopulmonary disease. Bill Ruvalcaba MD on June 22, 2017 at 22:33 Board Certified Radiologist. This report was verified electronically.
[2017-06-22 22:47] LABS: BLOOD, URINE LARGE (NEG); GLUCOSE,URINE 250 mg/dL (NEG); KETONE, URINE NEG (NEG); NITRITE,URINE NEG (NEG)
[2017-06-22 22:55] LABS: CREATINE KINASE 75 U/L (26-192)
[2017-06-22 23:00] VITALS: BP 134/70; PULSE 98; RESP 20; O2SAT 98
[2017-06-22] MEDS ORDERED: cefTRIAXone INJ 1,000 MG in SODIUM CHLORIDE 0.9% INJ 100 ML IV ONE (23:00)
[2017-06-22 23:05] LABS: ACETAMINOPHEN 5.6 MCG/ML (10.0-30.0)
[2017-06-22 23:22] LABS: METHOD OF COLLECTION VOIDED; URINE COLOR STRAW (YELLW/STRAW)
[2017-06-22 23:29] LABS: WBC, URINE INNUM /hpf (0-5)
[2017-06-22 23:30] LABS: BACTERIA, URINE RARE /hpf; COMMENT (UR) CULTURE INDICATED; CULTURE IF INDICATED CULTURE INDICATED; SQUAMOUS EPITHELIAL CELL URINE 0-1 /hpf (0-5)
[2017-06-22] MEDS ORDERED: SODIUM CHLORIDE 0.9% FLUSH 10 ML FLUSH IV FLUSH PRN (23:30)
[2017-06-22] MEDS ORDERED: GLUCAGON 1 MG/ML VIAL OTHER PRN (23:30)
[2017-06-22] MEDS ORDERED: MISCELLANEOUS NURSING INFORMATION XX SCH (23:30)
[2017-06-22] MEDS ORDERED: BISACODYL 10 MG SUPP RECTAL PRN (23:30)
[2017-06-22] MEDS ORDERED: LACTULOSE SYRUP 20 GM/30 ML CUP PO PRN (23:30)
[2017-06-22] MEDS ORDERED: MAGNESIUM HYDROXIDE SUSP 30 ML CUP PO PRN (23:30)
[2017-06-22] MEDS ORDERED: SENNOSIDES 8.6 MG TAB PO PRN (23:30)
[2017-06-22] MEDS ORDERED: RESP: ALBUTEROL 2.5 MG/3 ML NEB (PRN) INH (23:30)
[2017-06-22] MEDS ORDERED: CHLORHEXIDINE GLUCONATE 2 % 1 PACK (2 CLOTHS) TOP PRN (23:30)
[2017-06-23] VITALS (32 sets, daily range): BP systolic 99–162; BP diastolic 40–87; PULSE 93–136; RESP 11–26; TEMP 98.1–103; O2SAT 92–100
[2017-06-23] MEDS ORDERED: LANTUS2P SQ
[2017-06-23] MEDS ORDERED: NALOXONE HCL 0.4 MG/ML AMP IV PUSH PRN
[2017-06-23] MEDS ORDERED: APIX5TAB PO
[2017-06-23] MEDS: SODIUM CHLOR 0.9% 1000 ML INJ 1,000 ML IV SCH ×2 (02:54→07:24)
[2017-06-23] MEDS ORDERED: SODIUM CHLOR 0.9% 1000 ML INJ 1,000 ML IV ONE ×2 (03:15→05:00)
[2017-06-23] MEDS: CHLORHEXIDINE GLUCONATE 2 % 1 PACK (2 CLOTHS) TOP SCH (03:58)
[2017-06-23] MEDS: INSULIN ASPART SUPPLEMENTAL SCALE SQ SCH ×6 (04:00→19:36)
[2017-06-23] MEDS ORDERED: ACETAMINOPHEN 325 MG TAB PO PRN (05:00)
[2017-06-23] MEDS: DEXTROSE 50% IN WATER 50 ML VIAL(D50) IV PUSH PRN (05:07)
[2017-06-23 05:43] LABS: AUTOMATED NEUTROPHIL # 33.3 TH/MM3 (1.8-7.7); BASOPHIL # 0.1 TH/MM3 (0-0.2); BASOPHIL % 0.4 % (0.0-2.0); EOSINOPHIL # 0.4 TH/MM3 (0-0.4); EOSINOPHIL % 1.1 % (0.0-4.0); HEMATOCRIT 24.9 % (35.0-46.0); LYMPH % 1.4 % (9.0-44.0); LYMPHOCYTE # 0.5 TH/MM3 (1.0-4.8); MEAN CELL VOLUME 91.7 FL (80.0-100.0); MEAN CORPUSCULAR HEMOGLOBIN 30.6 PG (27.0-34.0); MEAN CORPUSCULAR HGB CONC 33.4 % (32.0-36.0); MONO % 0.1 % (0.0-8.0); PLATELET COUNT 597 TH/MM3 (150-450); RED BLOOD COUNT 2.72 MIL/MM3 (4.00-5.30); RED CELL DISTRIBUTION WIDTH 14.8 % (11.6-17.2); WHITE BLOOD COUNT 34.3 TH/MM3 (4.0-11.0)
[2017-06-23 05:54] LABS: POTASSIUM 4.5 MEQ/L (3.5-5.1)
[2017-06-23 05:55] LABS: HEMO FLAGS AUTO DIFF
--- NOTE | 2017-06-23 06:40 | RADRPT ---
EXAM DATE/TIME: 06/23/2017 06:01 [facility] COMPARISON: CHEST SINGLE AP, June 22, 2017, 22:24. INDICATIONS : Shortness of breath. MEDICAL HISTORY : Myocardial infarction. Diabetes mellitus type II. SURGICAL HISTORY : None. ENCOUNTER: Subsequent ACUITY: 2 days PAIN SCORE: Non-responsive. LOCATION: Bilateral chest FINDINGS: A single AP semierect view of the chest was obtained and demonstrates new hazy bilateral perihilar in filtrates. There is no effusion. The heart size is mildly prominent. The patient is status post lower cervical fusion. There are overlying electrocardiogram leads and oxygen tubing. CONCLUSION: New bilateral perihilar opacities most characteristic of early pulmonary edema. This may be cardiogenic or noncardiogenic in origin. Surendra Wright MD on June 23, 2017 at 6:37 Board Certified Radiologist. This report was verified electronically.
[2017-06-23 06:46] LABS: BANDS 8 % (0-6); EOSINOPHILS 2 % (0-4); NEUTROPHIL # MANUAL DIFF 31.9 TH/MM3 (1.8-7.7); POLYS (SEG NEUTROPHILS) 85 % (16-70); SCAN/DIFF FINAL DIFF MANUAL; WBC DIFF SAMPLE 100
--- NOTE | 2017-06-23 07:39 | HHI.HP ---
[facility] Service Critical Care Medicine Primary Care Physician Sukumar Logan MD Admission Diagnosis opiate overdose, hypoxia, chronic anemia, JARVIS Diagnosis: (1) Opiate dependence Diagnosis: Principal (2) Overdose of analgesic Diagnosis: Principal (3) Acute kidney injury Diagnosis: Principal (4) Opiate overdose (5) Hypoxia Diagnosis: Principal (6) Anemia Diagnosis: Secondary (7) Bandemia Diagnosis: Principal (8) Chronic pain disorder Diagnosis: Secondary (9) Diabetes mellitus Diagnosis: Secondary (10) Hematuria Diagnosis: Principal (11) Leukocytosis, unspecified (12) Acute renal failure (ARF) Diagnosis: Principal Travel History International Travel<30 Days: No Contact w/Intl Traveler <30 Da: No Traveled to Known Affected Are: No Sepsis Criteria SIRS Criteria (2 or more): Temp > 100.9 or < 96.8, WBC > 15130, < 4000 or > 10 % bands Severe Sepsis (+one): Acute Oliguria/Renal Failure Criteria Outcome: Meets SIRS criteria History of Present Illness This is a 46-year-old female that presented to the ED via EMS after an overdose. According to EMS the patient's found the patient in the bathroom, unconscious, apparently not breathing. The initiated CPR and called 911. When the police arrived they did CPR for several minutes until EMS arrived. EMS states when they arrived the patient had agonal respirations. They were unable to place an IV, however, were able to place an IO in the right lower extremity. EMS states the patient's initial blood sugar was 215 and they administered Narcan 2 mg through the IO. EMS states the patient's GCS went from 3 to 14. Upon arrival the patient was a GCS of 15. The patient states she is prescribed morphine extended release 30 mg 4 times a day for chronic pain. The patient states that she took apart and snorted 1 30 milligram tablet at approximately 8 PM. 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 Flores. The patient did complain of mild chest pain and shortness of breath, upon admission. The patient's history is significant for multiple admissions previously for substance overdose (Morphine), last admission 03/2017. The patient also had previous medical history of admissions in the past of substance abuse with heroin and cocaine, patient has a history of PTSD and chronic pain syndrome secondary to a remote history of back surgery. Laboratory and imaging studies were performed in the ED, revealed normal lactic acid however a significant leukocytosis, and probable UTI, but also noted microscopic hematuria, and elevation in creatinine. The patient was placed on Rocephin. The patient's creatinine was noted to be elevated last evening. Upon discussion with the patient, the patient states she was admitted to [facility] on 06/12/17 and was admitted for urinary tract infection, patient signed out AMA on06/21/2017. Patient also reported seeing Dr. Flores regarding as related before tumors in the right lung and duodenum. Critical care medicine was consulted. History PFSH Past Medical History Arthritis: Yes (KNEES, NECK) Blood Disorders: No Anxiety: Yes Heart Rhythm Problems: No Cancer: No Cardiovascular Problems: No Cerebrovascular Accident: No Diabetes: Yes Diminished Hearing: No Deep Vein Thrombosis: Yes (both arms) Endocrine: Yes Gastrointestinal Disorders: Yes (gasteroparesis) GERD: No Genitourinary: No Hiatal Hernia: No Immune Disorder: No Musculoskeletal: Yes Neurologic: No Psychiatric: Yes (PTSD) Reproductive: No Respiratory: No Immunizations Current: No Myocardial Infarction: No Seizures: Yes Ulcer: No : 3 Para: 3 Past Surgical History Abdominal Surgery: No Cardiac Surgery: No Ear Surgery: No Endocrine Surgery: No Genitourinary Surgery: No Gynecologic Surgery: Yes (TUBECTOMY/1999) Oral Surgery: No Thoracic Surgery: Yes (Back Surgery) Other Surgery: Yes (cervical spine metal plate) Social History Alcohol Use: No Tobacco Use: No Substance Use: Yes Allergies-Medications Allergies-Medications (Allergen,Severity, Reaction): Coded Allergies: ketorolac (Unverified Allergy, Severe, Anaphylaxis, 03/04/17) Reported Meds & Prescriptions Reported Meds & Active Scripts Active Reported Humalog Kwikpen Pen Inj (Insulin Lispro (Human) Inj) 300 Unit/3 Ml Pen 5 Units SQ ACHS SLIDING SCALE Humalog Inj (Insulin Human Lispro) 1,000 Unit/10 Ml Vial 5-25 Units SQ ACHS Max dose at bedtime:( )units; sugars < 70,(0)units; sugars 150-199,(5)units; sugars 200-249,(10)units; sugars 250-299,(15)units; sugars 300-349,(20)units; sugars more than 349,(25)units. Hydromorphone (Hydromorphone HCl) 4 Mg Tab 4 Mg PO Q6H PRN Prazosin (Prazosin HCl) 1 Mg Cap 1 Mg PO DAILY Tegretol (Carbamazepine) 200 Mg Tab 200 Mg PO BID Gabapentin 800 Mg Tab 800 Mg PO TID Requip (Ropinirole HCl) 2 Mg Tab 2 Mg PO HS Soma (Carisoprodol) 350 Mg Tab 350 Mg PO QID PRN Alprazolam 2 Mg Tab 2 Mg PO Q6H PRN Lantus Inj (Insulin Glargine) 1,000 Unit/10 Ml Vial 30 Units SQ HS Lantus Inj (Insulin Glargine) 1,000 Unit/10 Ml Vial 40 Units SQ DAILY Seroquel (Quetiapine Fumarate) 200 Mg Tab 200 Mg PO DAILY ROS Review of Systems Except as stated in HPI: all other systems reviewed are Neg General / Constitutional: No: Fever HENT: No: Lightheadedness Cardiovascular: Positive: Chest Pain or Discomfort Respiratory: Positive: Shortness of Breath Gastrointestinal: No: Nausea, Vomiting, Abdominal Pain Musculoskeletal: Positive: Pain Psychiatric: Positive: Substance Abuse (patient admits to snorting her extended release morphine earlier tonight), No: Suicidal Ideations Past Family Social History Allergies: Coded Allergies: ketorolac (Unverified Allergy, Severe, Anaphylaxis, 06/22/17) Physical Exam Vital Signs . Vital Signs Date Time Temp Pulse Resp B/P (MAP) Pulse Ox O2 Delivery O2 Flow Rate FiO2 06/23/17 07:14 120 06/23/17 07:10 124 26 121/57 (78) 95 06/23/17 06:10 124 06/23/17 06:01 102.1 124 16 141/74 (96) 94 06/23/17 05:00 126 15 125/56 (79) 98 06/23/17 05:00 126 15 125/56 (79) 92 06/23/17 04:19 128 06/23/17 04:00 128 11 140/63 (88) 96 06/23/17 04:00 103.0 128 22 140/63 (88) 95 06/23/17 03:00 128 21 157/74 (101) 98 06/23/17 02:20 100 Nasal Cannula 6.00 06/23/17 02:09 136 23 159/81 (107) 100 06/23/17 02:05 135 24 159/81 (107) 98 06/23/17 02:05 134 24 100 06/23/17 02:00 134 06/23/17 01:00 118 23 100 06/23/17 01:00 118 23 162/87 (112) 100 06/23/17 01:00 128 06/23/17 00:45 102 20 143/70 (94) 06/23/17 00:36 98.1 122 24 158/79 (105) 98 06/22/17 23:00 98 20 134/70 (91) 98 Nasal Cannula 4.00 06/22/17 22:35 97 20 132/68 (89) 97 06/22/17 22:29 98 Nasal Cannula 4.00 06/22/17 22:00 108 16 138/72 (94) 97 Nasal Cannula 4.00 06/22/17 21:50 98 20 4 Nasal Cannula 06/22/17 21:34 97.8 107 20 147/84 (105) 89 06/22/17 21:34 107 20 147/84 (105) 92 Nasal Cannula 2.00 Physical Exam GENERAL: This is a well-developed well-nourished female, in mild distress complaining of right flank pain SKIN: Warm and dry. Well-healed skin grafts noted on forearm HEAD: Atraumatic. Normocephalic. EYES: Pupils equal and round. No scleral icterus. No injection or drainage. ENT: No nasal bleeding or discharge. Mucous membranes pink and moist. NECK: Trachea midline. No JVD. CARDIOVASCULAR: Normal rate, regular rhythm. RESPIRATORY: No accessory muscle use. Clear to auscultation. Breath sounds equal bilaterally. O2 saturation 93-95 % on room air GASTROINTESTINAL: Abdomen soft, non-tender, nondistended. No guarding. MUSCULOSKELETAL: Extremities without clubbing, cyanosis, or edema. No obvious deformities. NEUROLOGICAL: Awake and alert. RASS 0. No gross focal/sensory deficits. Follows commands in all 4 extremities. Laboratory Laboratory Tests Test 06/22/17 21:42 06/22/17 21:55 06/22/17 22:25 06/23/17 05:30 Blood Gas Puncture Site RT RADIAL Blood Gas Patient Temperature 98.6 Blood Gas HCO3 23 Blood Gas Base Excess -1.5 Blood Gas Oxygen Saturation 92 Arterial Blood pH 7.35 Arterial Blood Partial Pressure CO2 43 Arterial Blood Partial Pressure O2 75 Arterial Blood Oxygen Content 9.8 Arterial Blood Carboxyhemoglobin 1.3 Arterial Blood Methemoglobin 0.9 Blood Gas Hemoglobin 7.5 Oxygen Delivery Device NASAL CANNULA Blood Gas Liter Flow 6 White Blood Count 19.3 34.3 Red Blood Count 2.63 2.72 Hemoglobin 8.0 8.3 Hematocrit 24.7 24.9 Mean Corpuscular Volume 93.9 91.7 Mean Corpuscular Hemoglobin 30.5 30.6 Mean Corpuscular Hemoglobin Concent 32.5 33.4 Red Cell Distribution Width 15.2 14.8 Platelet Count 591 597 Mean Platelet Volume 7.9 7.4 Neutrophils (%) (Auto) 91.2 97.0 Lymphocytes (%) (Auto) 4.0 1.4 Monocytes (%) (Auto) 1.3 0.1 Eosinophils (%) (Auto) 2.6 1.1 Basophils (%) (Auto) 0.9 0.4 Neutrophils # (Auto) 17.5 33.3 Lymphocytes # (Auto) 0.8 0.5 Monocytes # (Auto) 0.3 0.0 Eosinophils # (Auto) 0.5 0.4 Basophils # (Auto) 0.2 0.1 CBC Comment DIFF FINAL AUTO DIFF Differential Comment FINAL DIFF MANUAL Prothrombin Time 10.7 Prothromb Time International Ratio 1.0 Activated Partial Thromboplast Time 29.7 Blood Urea Nitrogen 21 23 Creatinine 2.40 2.50 Random Glucose 237 132 Total Protein 6.9 Albumin 2.4 Calcium Level 7.9 7.6 Alkaline Phosphatase 402 Aspartate Amino Transf (AST/SGOT) 31 Alanine Aminotransferase (ALT/SGPT) 20 Total Bilirubin 0.2 Sodium Level 136 140 Potassium Level 4.6 4.5 Chloride Level 104 109 Carbon Dioxide Level 23.5 23.0 Anion Gap 9 8 Estimat Glomerular Filtration Rate 22 21 Total Creatine Kinase 75 Troponin I LESS THAN 0.02 Salicylates Level LESS THAN 1.7 Acetaminophen Level 5.6 Ethyl Alcohol Level LESS THAN 3 Urine Collection Type VOIDED Urine Color STRAW Urine Turbidity CLOUDY Urine pH 6.0 Urine Specific [place] 1.011 Urine Protein TRACE Urine Glucose (UA) 250 Urine Ketones NEG Urine Occult Blood LARGE Urine Nitrite NEG Urine Bilirubin NEG Urine Leukocyte Esterase LARGE Urine WBC INNUM Urine WBC Clumps FEW Urine Squamous Epithelial Cells 0-1 Urine Bacteria RARE Urine Yeast (Budding) FEW Microscopic Urinalysis Comment CULTURE INDICATED Urine Opiates Screen POS Urine Barbiturates Screen NEG Urine Amphetamines Screen NEG Urine Benzodiazepines Screen POS Urine Cocaine Screen NEG Urine Cannabinoids Screen NEG Differential Total Cells Counted 100 Neutrophils % (Manual) 85 Band Neutrophils % 8 Lymphocytes % 4 Monocytes % 1 Eosinophils % 2 Neutrophils # (Manual) 31.9 Lactic Acid Level 1.7 Test 06/23/17 06:40 Tumor Marker HCG LESS THAN 1 Date/Time Source Procedure Growth Status 06/23/17 06:50 Blood Peripheral Aerobic Blood Culture Pending Received 06/23/17 06:50 Blood Peripheral Anaerobic Blood Culture Pending Received 06/23/17 05:32 Nasal Aspirate Influenza Types A,B Antigen (PEDRO) - Final NEGATIVE FOR FLU A AND B ANTIGEN.... Complete 06/22/17 22:25 Urine Random Urine Urine Culture Pending Received Result Diagram: 06/23/17 0530 06/23/17 0530 Imaging Last 24 hours Impressions Chest X-Ray 06/23/17 0600 Signed Impressions: Service Date/Time: Friday, June 23, 2017 06:01 - CONCLUSION: New bilateral perihilar opacities most characteristic of early pulmonary edema. This may be cardiogenic or noncardiogenic in origin. Surendra Wright MD Chest X-Ray [id number] Signed Impressions: Service Date/Time: Thursday, June 22, 2017 22:24 - CONCLUSION: No evidence of acute cardiopulmonary disease. Bill Ruvalcaba MD Septic Shock Reassessment Heart: Regular rate and rhythm Lungs: Clear Skin: Warm Peripheral Pulses: Bounding Right Radial Bounding Left Radial Bounding Right Dorsalis Pedis Bounding Left Dorsalis Pedis Capillary Refill: Brisk Caprini VTE Risk Assessment Caprini VTE Risk Assessment: Mod/High Risk (score >= 2) Caprini Risk Assessment Model Point Value = 1 Point Value = 2 Point Value = 3 Point Value = 5 Age 41-60 Minor surgery BMI > 25 kg/m2 Swollen legs Varicose veins or History of unexplained or recurrent spontaneous Oral contraceptives or hormone replacement Sepsis (< 1 month) Serious lung disease, including pneumonia (< 1 month) Abnormal pulmonary function Acute myocardial infarction Congestive heart failure (< 1 month) History of inflammatory bowel disease Medical patient at bed rest Age 61-74 Arthroscopic surgery Major open surgery (> 45 min) Laparoscopic surgery (> 45 min) Malignancy Confined to bed (> 72 hours) Immobilizing plaster cast Central venous access Age >= 75 History of VTE Family history of VTE Factor V Leiden Prothrombin [id number] Lupus anticoagulant Anticardiolipin antibodies Elevated serum homocysteine Heparin-induced thrombocytopenia Other congenital or acquired thrombophilia Stroke (< 1 month) Elective arthroplasty Hip, pelvis, or leg fracture Acute spinal cord injury (< 1 month) Prophylaxis Regimen Total Risk Factor Score Risk Level Prophylaxis Regimen 0-1 Low Early ambulation 2 Moderate Order ONE of the following: *Sequential Compression Device (SCD) *Heparin 5000 units SQ BID 3-4 Higher Order ONE of the following medications: *Heparin 5000 units SQ TID *Enoxaparin/Lovenox 40 mg SQ daily (WT < 150 kg, CrCl > 30 mL/min) *Enoxaparin/Lovenox 30 mg SQ daily (WT < 150 kg, CrCl > 10-29 mL/min) *Enoxaparin/Lovenox 30 mg SQ BID (WT < 150 kg, CrCl > 30 mL/min) AND/OR *Sequential Compression Device (SCD) 5 or more Highest Order ONE of the following medications: *Heparin 5000 units SQ TID (Preferred with Epidurals) *Enoxaparin/Lovenox 40 mg SQ daily (WT < 150 kg, CrCl > 30 mL/min) *Enoxaparin/Lovenox 30 mg SQ daily (WT < 150 kg, CrCl > 10-29 mL/min) *Enoxaparin/Lovenox 30 mg SQ BID (WT < 150 kg, CrCl > 30 mL/min) AND *Sequential Compression Device (SCD) Assessment and Plan Assessment and Plan This is a 46-year-old female with a history of multiple admissions secondary to opiate overdose. Upon presentation with this admission the patient was noted to have JARVIS, elevation in WBC, and hematuria as well as right flank pain. Patient subsequent chest x-ray now revealing possible pulmonary edema versus aspiration and patient has a significant temperature of 103.0. Admit to ICU Assessment Opiate overdose Opiate dependency Acute renal failure Hematuria Leukocytosis Bandemia Sepsis Chronic pain syndrome PTSD Possible aspiration Diabetes mellitus Hypoglycemia Severe Hydronephrosis (right) PLAN Plan by systems: Neurologic: Avoid sedative type medications Neurochecks per ICU protocol Monitor for signs of opiate withdrawal Tylenol 650 every 4 hours when necessary for temperature greater than 100.4 Respiratory: Maintain O2 sat greater than 92% O2 1-4 L/m nasal cannula, currently O2 saturation 93-94% on room air Incentive spirometry every 4 hours while awake Duo nebs every 4 hours when necessary for wheezing Chest x-ray 06/22-no active disease process, now 06/23-new hazy B/L pulm infiltrates( pulmonary edema versus aspiration) Obtain CT chest Cardiovascular: Maintain MAP > 65 mmHg Telemetry-sinus rhythm Renal: Obtain urine sodium, creatinine, urine eosinophils CT abdomen and pelvis moderate to severe right hydronephrosis-discussed with Dr. Holman, plan for nephrostomy tube placement by IR, spoke with IR Renal ultrasound Insert Muhammad-patient currently has refused -- Strict I/Os Nephrology consult FEN/GI: D5 Normal saline @ 42cc/hr Monitor BMP Creatinine elevation 2.4->2.5 this am Heme/ID: Monitor CBC Patient previously seen by Dr. Flores's office obtain medical records from patient's hematology oncologist Patient currently on Rocephin 1 GM q 24hrs will broaden empiric coverage add Levaquin Follow-up blood urine cultures Influenza negative Endocrine: Glucose monitoring per ICU protocol, low dose regimen -- SSI Prophylaxis: GI Prophylaxis Famotidine in the setting of [place] I DVT Prophylaxis -- SCDs Heparin 500 SQ BID Lines: Peripheral IVs providing adequate access. Central line if indicated Dispo: my billing statement This patient remains critically ill with one or more organ systems which are or may become a threat to life. I have spent in excess of 55 minutes discontinuously in the care and management of this patient. This time is exclusive of procedures, and includes, but is not limited to, evaluation of the patient, review of the medical record, discussions with family, consultants, nursing staff, or respiratory therapy, and documentation in the medical record. Code Status Full Discussed Condition With Patient, Dr. Holman and RESUME WRITER at bedside (Ashley) Problem Qualifiers (1) Overdose of analgesic: (2) Opiate overdose: (3) Anemia: Qualified Codes: D50.9 - Iron deficiency anemia, unspecified (4) Diabetes mellitus: (5) Hematuria: Qualified Codes: R31.29 - Other microscopic hematuria (6) Acute renal failure (ARF): Qualified Codes: N17.9 - Acute kidney failure, unspecified Mi Brewer MD Jun 23, 2017 07:39
[2017-06-23] MEDS: DEXT 5%-NACL 0.9% 1000 ML INJ 1,000 ML IV SCH ×2 (08:28→22:16)
[2017-06-23] MEDS: SODIUM CHLORIDE 0.9% FLUSH 10 ML FLUSH IV FLUSH SCH ×2 (09:00→19:33)
[2017-06-23] MEDS ORDERED: LEVOFLOXACIN 500 MG PREMIX INJ 100 ML IV SCH (09:00)
[2017-06-23] MEDS ORDERED: PANTOPRAZOLE SOD 40 MG DELAYED RELEASE TAB PO SCH (09:00)
[2017-06-23] MEDS: DOCUSATE SODIUM 50 MG/SENNA 8.6 MG TAB PO SCH ×2 (09:00→19:32)
[2017-06-23] MEDS ORDERED: FAMOTIDINE 20 MG/2 ML VIAL IV PUSH SCH (09:00)
--- NOTE | 2017-06-23 09:30 | RADRPT ---
EXAM DATE/TIME: 06/23/2017 09:03 [facility] COMPARISON: No previous studies available for comparison. INDICATIONS : Mild chest pain and short of breath. RADIATION DOSE: 14.96 CTDIvol (mGy) ; Combined studies - Thorax/Abdomen/Pelvis MEDICAL HISTORY : Deep venous thrombosis. Gastroparesis. Seizures. Renal disease. Diabetes. SURGICAL HISTORY : Tubal ligation. Cholecystectomy.Fusion, cervical. Orthopedic surgery. ENCOUNTER: Initial ACUITY: 2 days PAIN SCALE: 4/10 LOCATION: chest TECHNIQUE: Volumetric scanning of the chest was performed. Using automated exposure control and adjustment of t he mA and/or kV according to patient size, radiation dose was kept as low as reasonably achievable to obtain optimal diagnostic quality images. DICOM format image data is available electronically for r eview and comparison. Follow-up recommendations for detected pulmonary nodules are based at a minimum on nodule size and pa tient risk factors according to Fleischner Society Guidelines. FINDINGS: LUNGS: There is patchy airspace consolidation involving all lobes this is most severe in the medial aspect o f the lower lobes bilaterally. No pleural effusion or pneumothorax is present. PLEURAE: There is no pleural thickening or pleural effusion. MEDIASTINUM: The heart and great vessels demonstrate no acute abnormality. There is no mediastinal or hilar lymph adenopathy. There is low density of the cardiac blood pool which can be seen with anemia. AXILLAE: There are prominent lymph nodes in the right axilla but none are technically enlarged by size criteri a. Left axilla is within normal limits. MUSCULOSKELETAL: Mild degenerative change of the thoracic spine. Partially visualized cervical spine hardware is prese nt. MISCELLANEOUS: The visualized upper abdominal organs demonstrate no acute abnormality. Cholecystectomy clips are pre sent. CONCLUSION: Nonspecific but severe bilateral air space consolidation involving all lobes but most prominent in th e lower lobes bilaterally. Infectious process could have this appearance including atypical infection s. Also, inflammatory processes should be considered in differential diagnosis. Suggest followup imag ing to confirm resolution. Bill Gaxiola MD on June 23, 2017 at 9:23 Board Certified Radiologist. This report was verified electronically.
--- NOTE | 2017-06-23 09:36 | RADRPT ---
EXAM DATE/TIME: 06/23/2017 09:03 [facility] COMPARISON: No previous studies available for comparison. INDICATIONS : Right flank pain. History of urinary tract infection. ORAL CONTRAST: No oral contrast ingested. RADIATION DOSE: 14.96 CTDIvol (mGy) ; Combined studies - Thorax/Abdomen/Pelvis MEDICAL HISTORY : Seizures. Deep venous thrombosis. Gastroparesis.Renal disease. Diabetes. SURGICAL HISTORY : Fusion, cervical. Cholecystectomy.Tubal ligation.Orthopedic surgery. ENCOUNTER: Initial ACUITY: 2 days PAIN SCALE: 4/10 LOCATION: Right flank TECHNIQUE: Volumetric scanning of the abdomen and pelvis was performed. Using automated exposure control and ad justment of the mA and/or kV according to patient size, radiation dose was kept as low as reasonably achievable to obtain optimal diagnostic quality images. DICOM format image data is available electro nically for review and comparison. FINDINGS: LOWER LUNGS: Please refer to chest CT report for description of the supradiaphragmatic findings. LIVER: There are measures 20.4 cm in length. Density is normal. No lesion is appreciated on this noncontrast examination. Cholecystectomy clips are present. There is no dilation of the biliary tree. SPLEEN: Normal size without lesion. PANCREAS: Within normal limits. KIDNEYS: There is moderate to severe right hydronephrosis and hydroureter. A dilated ureter appears to extend to near the ureterovesical junction. There is no distal stone. There is no left hydronephrosis or hyd roureter. ADRENAL GLANDS: Within normal limits. VASCULAR: There is no aortic aneurysm. Mild atherosclerotic disease. BOWEL/MESENTERY: The stomach, small bowel, and colon demonstrate no acute abnormality. There is no free intraperitone al air. There is trace free fluid in the abdomen and pelvis. ABDOMINAL WALL: Within normal limits. RETROPERITONEUM: There is no lymphadenopathy. However, there are multiple prominent small lymph nodes. BLADDER: No wall thickening or mass. REPRODUCTIVE: Within normal limits. INGUINAL: There is no lymphadenopathy or hernia. MUSCULOSKELETAL: There are mild degenerative changes of the lumbar spine. CONCLUSION: 1. Severe right hydronephrosis and hydroureter from uncertain etiology. No obstructing stone is prese nt. No definite mass is seen on this noncontrast examination. However, cannot exclude a distal right ureteral lesion on this examination. 2. There is trace free fluid in the abdomen and pelvis. 3. There are multiple small retroperitoneal lymph nodes in the abdomen. However, these are technicall y not enlarged by size criteria. Suggest attention to these on followup imaging. Bill Gaxiola MD on June 23, 2017 at 9:28 Board Certified Radiologist. This report was verified electronically.
--- NOTE | 2017-06-23 10:04 | RADRPT ---
EXAM DATE/TIME: 06/23/2017 09:11 [facility] COMPARISON: No previous studies available for comparison. INDICATIONS : Increased BUN/creatinine. MEDICAL HISTORY : Hypercholesterolemia. Myocardial infarction. Gastroparesis. Seizures. DVT. Arthritis. Renal disease. UTI. Diabetes. PTSD. Anxiety. SURGICAL HISTORY : Cholecystectomy. Tubal ligation. C4-C7 surgery. Skin graft. ENCOUNTER: Initial ACUITY: 3 days PAIN SCORE: 9/10 LOCATION: Bilateral flank MEASUREMENTS: RIGHT KIDNEY: 13.9 x 5.9 x 5.4 cm LEFT KIDNEY: 14.3 x 6.1 x 6.8 cm FINDINGS: RIGHT KIDNEY: Renal cortex is normal in thickness and echotexture. Pelvocaliectasis of the collecting system with some prominence of the extrarenal pelvis. No stones LEFT KIDNEY: Renal cortex is normal in thickness and echotexture. Very mild pelvocaliectasis of the collecting sys tem with no stones. BLADDER: Within normal limits given the degree of distension. CONCLUSION: 1. Bilateral pelvocaliectasis, right greater than left. 2. No stones. Edgar Vieira MD on June 23, 2017 at 9:58 Board Certified Radiologist. This report was verified electronically.
[2017-06-23] MEDS: carBAMazepine 200 MG TAB PO SCH ×2 (10:18→19:32)
[2017-06-23] MEDS: HEPARIN SODIUM - SQ 10,000 UNITS/ML VIAL SQ SCH ×2 (10:19→19:33)
--- NOTE | 2017-06-23 13:16 | PD.CONS ---
HPI Consult Requested By Primary Care Physician Sukumar Logan MD History of Present Illness Counseled for apparent acute renal insufficiency however the patient was just recently hospitalized at [facility] where she indicated that she saw her a renal specialist on one occasion during that admission but she subsequently left the hospital against medical advise. Patient is refusing to sign for release of medical records from that institution. I indicated to her that she may be impairing her medical care by failing to allow us to review information regarding her medical history and strongly advised that she change her mind. She has a history of substance abuse and was apparently found at home unresponsive and received CPR. Creatinine level at that time of presentation 2.5. CK level 75. CT scan performed during this presentation indicated a severe right hydronephrosis. Urological consultation pending. Patient has taken some ibuprofen prior to this presentation but not regularly by history. Review of Systems Constitutional: DENIES: Diaphoretic episodes, Fatigue, Fever, Weight gain, Weight loss, Chills, Dizziness, Change in appetite, Night Sweats Cardiovascular: DENIES: Chest pain, Palpitations, Syncope, Dyspnea on Exertion , PND, Lower Extremity Edema, Orthopnea, Claudication Gastrointestinal: DENIES: Abdominal pain, Black stools, Bloody stools, Constipation, Diarrhea, Nausea, Vomiting, Difficulty Swallowing, Anorexia Past Family Social History Allergies: Coded Allergies: ketorolac (Unverified Allergy, Severe, Anaphylaxis, 06/22/17) Past Medical History Noncompliance with medical care with a history of recent episode of leaving the hospital AGAINST MEDICAL ADVICE. Patient presently refusing to sign release of records consent. Do not have access to those records. History of substance abuse. Cocaine and heroine per records. Diabetes mellitus. Past Surgical History Per records. Reported Medications Reported Meds & Active Scripts Active Reported Eliquis (Apixaban) 5 Mg Tab 5 Mg PO BID Lantus Inj (Insulin Glargine) 1,000 Unit/10 Ml Vial 20 Units SQ HS Humalog Kwikpen Pen Inj (Insulin Lispro (Human) Inj) 300 Unit/3 Ml Pen 5 Units SQ ACHS SLIDING SCALE Humalog Inj (Insulin Human Lispro) 1,000 Unit/10 Ml Vial 5-25 Units SQ ACHS Max dose at bedtime:( )units; sugars < 70,(0)units; sugars 150-199,(5)units; sugars 200-249,(10)units; sugars 250-299,(15)units; sugars 300-349,(20)units; sugars more than 349,(25)units. Hydromorphone (Hydromorphone HCl) 4 Mg Tab 4 Mg PO Q6H PRN Prazosin (Prazosin HCl) 1 Mg Cap 1 Mg PO DAILY Tegretol (Carbamazepine) 200 Mg Tab 200 Mg PO BID Gabapentin 800 Mg Tab 800 Mg PO TID Requip (Ropinirole HCl) 2 Mg Tab 2 Mg PO HS Soma (Carisoprodol) 350 Mg Tab 350 Mg PO QID PRN Alprazolam 2 Mg Tab 2 Mg PO Q6H PRN Lantus Inj (Insulin Glargine) 1,000 Unit/10 Ml Vial 30 Units SQ HS Seroquel (Quetiapine Fumarate) 200 Mg Tab 200 Mg PO DAILY Active Ordered Medications Current Medications Sodium Chloride (NS Flush) 2 ml UNSCH PRN IVF FLUSH AFTER USING IV ACCESS; Start 06/22/17 at 21:45; Stop 06/22/17 at 23:40; Status DC Sodium Chloride 500 ml @ 500 mls/hr BOLUS ONCE IV Last administered on 23:28; Start 06/22/17 at 22:30; Stop 06/22/17 at 23:29; Status DC Ceftriaxone Sodium 1000 mg/ Sodium Chloride 100 ml @ 200 mls/hr ONCE ONCE IV Last administered on 06/22/17 23:27; Start 06/22/17 at 23:00; Stop 06/22/17 at 23:30; Status DC Sodium Chloride 1,000 ml @ 125 mls/hr Q8H IV Last administered on 06/23/17 02 :54; Start 06/22/17 at 23:24; Stop 06/23/17 at 08:13; Status DC Sodium Chloride (NS Flush) 2 ml UNSCH PRN IV FLUSH FLUSH AFTER USING IV ACCESS ; Start 06/22/17 at 23:30 Sodium Chloride (NS Flush) 2 ml BID IV FLUSH Last administered on 06/23/17 09: 00; Start 06/23/17 at 09:00 Pantoprazole Sodium (Protonix) 40 mg DAILY PO ; Start 06/23/17 at 09:00; Stop 06/23/17 at 09:00; Status DC Ondansetron HCl (Zofran Inj) 4 mg Q6H PRN IV PUSH NAUSEA OR VOMITING; Start at 23:30 Albuterol Sulfate (Albuterol Neb) 2.5 mg Q2HR NEB PRN INH SOB/WHEEZING; Start 06/22/17 at 23:30 Heparin Sodium (Porcine) (Heparin Inj) 5,000 units Q12HR SQ Last administered on 06/23/17 10:19; Start 06/23/17 at 09:00 Miscellaneous Information 1 [id number] XX ; Start 06/22/17 at 23:30 Chlorhexidine Gluconate (Chlorhexidine 2% Cloth) 3 pack Taper DAILY@04 TOP Last administered on 06/23/17 03:58; Start 06/23/17 at 04:00; Stop 06/19/18 at 03:59 Chlorhexidine Gluconate (Chlorhexidine 2% Cloth) 3 pack UNSCH PRN TOP HYGIENIC CARE; Start 06/22/17 at 23:30 Senna/Docusate Sodium (Tess-Colace) 1 tab BID PO ; Start 06/23/17 at 09:00 Magnesium Hydroxide (Milk Of Magnesia Liq) 30 ml Q12H PRN PO Mild constipation ; Start 06/22/17 at 23:30 Sennosides (Senokot) 17.2 mg Q12H PRN PO Moderate constipation; Start 06/22/17 at 23:30 Bisacodyl (Dulcolax Supp) 10 mg DAILY PRN RECTAL SEVERE CONSITIPATION; Start 06/22/17 at 23:30 Lactulose (Lactulose Liq) 30 ml DAILY PRN PO SEVERE CONSITIPATION; Start at 23:30 Ceftriaxone Sodium 1000 mg/ Sodium Chloride 100 ml @ 200 mls/hr Q24H IV ; Start 06/23/17 at 23:00 Carbamazepine (TEGretol) 200 mg BID PO Last administered on 06/23/17 10:18; Start 06/23/17 at 09:00 Dextrose (D50w (Vial) Inj) 50 ml UNSCH PRN IV PUSH HYPOGLYCEMIA-SEE COMMENTS Last administered on 06/23/17 05:07; Start 06/22/17 at 23:30 Glucagon (Glucagon Inj) 1 mg UNSCH PRN OTHER HYPOGLYCEMIA-SEE COMMENTS; Start 06/22/17 at 23:30 Insulin Aspart (NovoLOG SUPPLEMENTAL SCALE) 1 Q4HR SQ ; Start 06/23/17 at 00:00 Naloxone HCl (Narcan Inj) 0.4 mg Q2M PRN IV PUSH DECREASED MENTAL STATUS OR RESPIRATORY DEPRESSION; Start 06/23/17 at 00:00 Sodium Chloride 1,000 ml @ 999 mls/hr BOLUS ONCE IV Last administered on 06/23 03:23; Start 06/23/17 at 03:15; Stop 06/23/17 at 04:15; Status DC Pneumococcal Polyvalent Vaccine (Pneumovax-23 Inj) 25 mcg ONCE ONCE IM ; Start 06/24/17 at 10:00; Stop 06/24/17 at 10:01 Influenza Virus Vaccine (Flu (Quadrivalent) Vaccine Inj) 0.5 ml ONCE ONCE IM ; Start 06/24/17 at 10:00; Stop 06/24/17 at 10:01 Acetaminophen (Tylenol) 650 mg Q4H PRN PO TEMP >101 Last administered on 05:11; Start 06/23/17 at 05:00 Sodium Chloride 1,000 ml @ 999 mls/hr BOLUS ONCE IV Last administered on 06/23 05:09; Start 06/23/17 at 05:00; Stop 06/23/17 at 06:00; Status DC Dextrose/Sodium Chloride 1,000 ml @ 42 mls/hr [id number] IV Last administered on 06/23/17 08:28; Start 06/23/17 at 08:15 Levofloxacin/ Dextrose 100 ml @ 100 mls/hr Q24H IV Last administered on 10:18; Start 06/23/17 at 09:00; Stop 06/23/17 at 23:59 Famotidine (Pepcid Inj) 20 mg Q12HR IV PUSH ; Start 06/23/17 at 09:00; Stop 06/23/17 at 09:24; Status DC Levofloxacin/ Dextrose 50 ml @ 50 mls/hr Q24H IV ; Start 06/24/17 at 09:00 Famotidine (Pepcid Inj) 10 mg Q12HR IV PUSH ; Start 06/23/17 at 21:00 Social History History of ongoing illicit drug use. Physical Exam Vital Signs Vital Signs Date Time Temp Pulse Resp B/P (MAP) Pulse Ox O2 Delivery O2 Flow Rate FiO2 06/23/17 12:00 122 06/23/17 12:00 98 19 121/68 (85) 06/23/17 11:00 98 18 123/57 (79) 06/23/17 10:00 96 06/23/17 10:00 94 17 118/60 (79) 06/23/17 09:00 96 20 119/60 (79) 96 06/23/17 08:45 95 Nasal Cannula 2.00 06/23/17 08:01 100.7 112 24 124/62 (82) 95 06/23/17 08:00 112 23 95 06/23/17 08:00 122 06/23/17 07:14 120 06/23/17 07:10 124 26 121/57 (78) 95 06/23/17 06:10 124 06/23/17 06:01 102.1 124 16 141/74 (96) 94 06/23/17 05:00 126 15 125/56 (79) 98 06/23/17 05:00 126 15 125/56 (79) 92 06/23/17 04:19 128 06/23/17 04:00 128 11 140/63 (88) 96 06/23/17 04:00 103.0 128 22 140/63 (88) 95 06/23/17 03:00 128 21 157/74 (101) 98 06/23/17 02:20 100 Nasal Cannula 6.00 06/23/17 02:09 136 23 159/81 (107) 100 06/23/17 02:05 135 24 159/81 (107) 98 06/23/17 02:05 134 24 100 06/23/17 02:00 134 06/23/17 01:00 118 23 100 06/23/17 01:00 118 23 162/87 (112) 100 06/23/17 01:00 128 06/23/17 00:45 102 20 143/70 (94) 06/23/17 00:36 98.1 122 24 158/79 (105) 98 06/22/17 23:00 98 20 134/70 (91) 98 Nasal Cannula 4.00 06/22/17 22:35 97 20 132/68 (89) 97 06/22/17 22:29 98 Nasal Cannula 4.00 06/22/17 22:00 108 16 138/72 (94) 97 Nasal Cannula 4.00 06/22/17 21:50 98 20 4 Nasal Cannula 06/22/17 21:34 97.8 107 20 147/84 (105) 89 06/22/17 21:34 107 20 147/84 (105) 92 Nasal Cannula 2.00 Physical Exam GENERAL: Patient resting comfortably not in respiratory distress. SKIN: Warm and dry. HEAD: Normocephalic. EYES: No scleral icterus. No injection or drainage. NECK: Supple, trachea midline. No JVD or lymphadenopathy. CARDIOVASCULAR: Regular rate and rhythm without murmurs, gallops, or rubs. RESPIRATORY: Breath sounds equal bilaterally. No accessory muscle use. GASTROINTESTINAL: Abdomen soft, non-tender, nondistended. MUSCULOSKELETAL: No cyanosis, or edema. BACK: Nontender without obvious deformity. No CVA tenderness. Laboratory Laboratory Tests Test 06/22/17 21:42 06/22/17 21:55 06/22/17 22:25 06/23/17 05:30 Blood Gas Puncture Site RT RADIAL Blood Gas Patient Temperature 98.6 Blood Gas HCO3 23 Blood Gas Base Excess -1.5 Blood Gas Oxygen Saturation 92 Arterial Blood pH 7.35 Arterial Blood Partial Pressure CO2 43 Arterial Blood Partial Pressure O2 75 Arterial Blood Oxygen Content 9.8 Arterial Blood Carboxyhemoglobin 1.3 Arterial Blood Methemoglobin 0.9 Blood Gas Hemoglobin 7.5 Oxygen Delivery Device NASAL CANNULA Blood Gas Liter Flow 6 White Blood Count 19.3 34.3 Red Blood Count 2.63 2.72 Hemoglobin 8.0 8.3 Hematocrit 24.7 24.9 Mean Corpuscular Volume 93.9 91.7 Mean Corpuscular Hemoglobin 30.5 30.6 Mean Corpuscular Hemoglobin Concent 32.5 33.4 Red Cell Distribution Width 15.2 14.8 Platelet Count 591 597 Mean Platelet Volume 7.9 7.4 Neutrophils (%) (Auto) 91.2 97.0 Lymphocytes (%) (Auto) 4.0 1.4 Monocytes (%) (Auto) 1.3 0.1 Eosinophils (%) (Auto) 2.6 1.1 Basophils (%) (Auto) 0.9 0.4 Neutrophils # (Auto) 17.5 33.3 Lymphocytes # (Auto) 0.8 0.5 Monocytes # (Auto) 0.3 0.0 Eosinophils # (Auto) 0.5 0.4 Basophils # (Auto) 0.2 0.1 CBC Comment DIFF FINAL AUTO DIFF Differential Comment FINAL DIFF MANUAL Prothrombin Time 10.7 Prothromb Time International Ratio 1.0 Activated Partial Thromboplast Time 29.7 Blood Urea Nitrogen 21 23 Creatinine 2.40 2.50 Random Glucose 237 132 Total Protein 6.9 Albumin 2.4 Calcium Level 7.9 7.6 Alkaline Phosphatase 402 Aspartate Amino Transf (AST/SGOT) 31 Alanine Aminotransferase (ALT/SGPT) 20 Total Bilirubin 0.2 Sodium Level 136 140 Potassium Level 4.6 4.5 Chloride Level 104 109 Carbon Dioxide Level 23.5 23.0 Anion Gap 9 8 Estimat Glomerular Filtration Rate 22 21 Total Creatine Kinase 75 Troponin I LESS THAN 0.02 Salicylates Level LESS THAN 1.7 Acetaminophen Level 5.6 Ethyl Alcohol Level LESS THAN 3 Urine Collection Type VOIDED Urine Color STRAW Urine Turbidity CLOUDY Urine pH 6.0 Urine Specific [place] 1.011 Urine Protein TRACE Urine Glucose (UA) 250 Urine Ketones NEG Urine Occult Blood LARGE Urine Nitrite NEG Urine Bilirubin NEG Urine Leukocyte Esterase LARGE Urine WBC INNUM Urine WBC Clumps FEW Urine Squamous Epithelial Cells 0-1 Urine Bacteria RARE Urine Yeast (Budding) FEW Microscopic Urinalysis Comment CULTURE INDICATED Urine Opiates Screen POS Urine Barbiturates Screen NEG Urine Amphetamines Screen NEG Urine Benzodiazepines Screen POS Urine Cocaine Screen NEG Urine Cannabinoids Screen NEG Differential Total Cells Counted 100 Neutrophils % (Manual) 85 Band Neutrophils % 8 Lymphocytes % 4 Monocytes % 1 Eosinophils % 2 Neutrophils # (Manual) 31.9 Lactic Acid Level 1.7 Test 06/23/17 06:40 06/23/17 07:44 Tumor Marker HCG LESS THAN 1 Urine Random Creatinine 17.8 Urine Random Sodium 88 Date/Time Source Procedure Growth Status 06/23/17 06:50 Blood Peripheral Aerobic Blood Culture Pending Received 06/23/17 06:50 Blood Peripheral Anaerobic Blood Culture Pending Received 06/23/17 05:32 Nasal Aspirate Influenza Types A,B Antigen (PEDRO) - Final NEGATIVE FOR FLU A AND B ANTIGEN.... Complete 06/22/17 22:25 Urine Random Urine Urine Culture Pending Received Result Diagram: 06/23/1730 06/23/17 0530 Imaging Last 48 hours Impressions Chest X-Ray 06/23/17 0600 Signed Impressions: Service Date/Time: Friday, June 23, 2017 06:01 - CONCLUSION: New bilateral perihilar opacities most characteristic of early pulmonary edema. This may be cardiogenic or noncardiogenic in origin. Surendra Wright MD Renal Ultrasound 06/23/17 0000 Signed Impressions: Service Date/Time: Friday, June 23, 2017 09:11 - CONCLUSION: 1. Bilateral pelvocaliectasis, right greater than left. 2. No stones. Edgar Vieira MD Chest CT 06/23/17 0000 Signed Impressions: Service Date/Time: Friday, June 23, 2017 09:03 - CONCLUSION: Nonspecific but severe bilateral air space consolidation involving all lobes but most prominent in the lower lobes bilaterally. Infectious process could have this appearance including atypical infections. Also, inflammatory processes should be considered in differential diagnosis. Suggest followup imaging to confirm resolution. Bill Gaxiola MD Abdomen/Pelvis CT 06/23/17 Signed Impressions: Service Date/Time: Friday, June 23, 2017 09:03 - CONCLUSION: 1. Severe right hydronephrosis and hydroureter from uncertain etiology. No obstructing stone is present. No definite mass is seen on this noncontrast examination. However, cannot exclude a distal right ureteral lesion on this examination. 2. There is trace free fluid in the abdomen and pelvis. 3. There are multiple small retroperitoneal lymph nodes in the abdomen. However, these are technically not enlarged by size criteria. Suggest attention to these on followup imaging. Bill Gaxiola MD Chest X-Ray 06/22/177 Signed Impressions: Service Date/Time: Thursday, June 22, 2017 22:24 - CONCLUSION: No evidence of acute cardiopulmonary disease. Bill Ruvalcaba MD Assessment and Plan Problem List: (1) Acute renal failure (ARF) ICD Codes: N17.9 - Acute kidney failure, unspecified Plan: Most likely secondary to obstructive uropathy with possible superimposed UTI. In addition the patient likely had prerenal azotemia related to dehydration on presentation and may have developed an acute ATN . Unfortunately the patient is refusing to sign medical release form for records from [facility] where apparently she also has some issues as far as her renal function were concerned. Hopefully the patient will change her mind. She was advised that denying as access to medical information may delay adequate medical management by doing so. Continue IV hydration. Urological consultation as pending. (2) Obstructive uropathy ICD Codes: N13.9 - Obstructive and reflux uropathy, unspecified Plan: Recommend urological consultation today especially with his believe that the patient has urinary tract infection in the setting of obstructive uropathy. (3) Opiate overdose ICD Codes: T40.601A - Poisoning by unspecified narcotics, accidental ( unintentional), initial encounter Status: Acute Plan: Unfortunately an ongoing problem. Defer to primary care physician regarding counseling patient to discontinue this behavior which may result in her premature . Problem Qualifiers (1) Acute renal failure (ARF): Qualified Codes: N17.9 - Acute kidney failure, unspecified (2) Opiate overdose: Avery Ayala MD Jun 23, 2017 13:16
[2017-06-23] MEDS: HYDROmorphone HCL PF 1 MG/ML VIAL IV PUSH PRN ×3 (14:11→22:17)
[2017-06-23] MEDS: ONDANSETRON HCL 4 MG/2 ML VIAL IV PUSH PRN (14:12)
[2017-06-23] MEDS ORDERED: DEXTROSE 50% IN WATER 50 ML SYRINGE ONE ×2 (15:38→19:08)
[2017-06-23] MEDS: FAMOTIDINE 20 MG/2 ML VIAL IV PUSH SCH (19:33)
--- NOTE | 2017-06-23 19:42 | EKG ---
Date Performed: 06/22/2017 Time Performed: 22:31:45 PTAGE: 46 years EKG: Sinus rhythm Since previous tracing, no significant change noted NORMAL ECG PREVIOUS TRACING : 06/02/2016 16.52 DOCTOR: Eriberto Sin Interpretating Date/Time 06/23/2017 19:40:41
--- NOTE | 2017-06-23 19:53 | PD.CONS ---
HPI Service Urology Consult Requested By Reason for Consult Hydronephrosis Primary Care Physician Sukumar Logan MD Diagnosis: (1) Opiate dependence ICD Code: F11.20 - Opioid dependence, uncomplicated (2) Overdose of analgesic ICD Code: T39.91XA - Poisoning by unspecified nonopioid analgesic, antipyretic and antirheumatic, accidental (unintentional), initial encounter (3) Acute kidney injury ICD Code: N17.9 - Acute kidney failure, unspecified (4) Opiate overdose ICD Code: T40.601A - Poisoning by unspecified narcotics, accidental ( unintentional), initial encounter (5) Hypoxia ICD Code: R09.02 - Hypoxemia (6) Anemia ICD Code: D64.9 - Anemia, unspecified (7) Bandemia ICD Code: D72.825 - Bandemia (8) Chronic pain disorder ICD Code: G89.4 - Chronic pain syndrome (9) Diabetes mellitus ICD Code: E11.9 - Type 2 diabetes mellitus without complications (10) Hematuria ICD Code: R31.9 - Hematuria, unspecified (11) Leukocytosis, unspecified ICD Code: D72.829 - Elevated white blood cell count, unspecified (12) Acute renal failure (ARF) ICD Code: N17.9 - Acute kidney failure, unspecified History of Present Illness 46yo female with history of DM and drug abuse now admitted for what appears to be a drug overdose. Patient was found obtunded at home where her family memmber found her and performed CPR. She was given Narcan which improved her overall clinical status from GCS of 3 to 14. She has multiple admissions in the past for drug abuse and pain seeking behavior. She was recently at [facility] however left [place] a few days ago. She does not follow-up for her medical issues and is poorly compliant and a brittle diabetic. CT scan identified significant right sided hydronephrosis. Patient reports abdominal pain radiating to her right flank. She was also found to have fevers over 103 and her WBC noted to be over 30. On clinical evaluation now she appears stable, responding appropriately. However her glucose has been uncontrolled and rather labile. She is currently in ICU awaiting transfer to [facility]. Of note, patient initially refused parnell catheter however she eventually agreed. Also, patient threatened to leave [place] if she did not receive pain medication. Review of Systems ROS Limitations: Clinical Condition Constitutional: COMPLAINS OF: Fever Eyes: DENIES: Blurred vision Ears, nose, mouth, throat: DENIES: Hearing loss Respiratory: DENIES: Cough Cardiovascular: DENIES: Chest pain Gastrointestinal: COMPLAINS OF: Abdominal pain, Nausea Genitourinary: COMPLAINS OF: Hematuria Musculoskeletal: COMPLAINS OF: Joint pain, Back pain Integumentary: DENIES: Rash Hematologic/lymphatic: DENIES: Bruising Neurologic: DENIES: Headache Psychiatric: COMPLAINS OF: Anxiety Except as stated in HPI: all other systems reviewed are Neg Past Family Social History Past Medical History Drug abuse DM Anxiety Past Surgical History Ovarian cyst surgery Reported Medications Reported Meds & Active Scripts Active Reported Eliquis (Apixaban) 5 Mg Tab 5 Mg PO BID Lantus Inj (Insulin Glargine) 1,000 Unit/10 Ml Vial 20 Units SQ HS Humalog Kwikpen Pen Inj (Insulin Lispro (Human) Inj) 300 Unit/3 Ml Pen 5 Units SQ ACHS SLIDING SCALE Humalog Inj (Insulin Human Lispro) 1,000 Unit/10 Ml Vial 5-25 Units SQ ACHS Max dose at bedtime:( )units; sugars < 70,(0)units; sugars 150-199,(5)units; sugars 200-249,(10)units; sugars 250-299,(15)units; sugars 300-349,(20)units; sugars more than 349,(25)units. Hydromorphone (Hydromorphone HCl) 4 Mg Tab 4 Mg PO Q6H PRN Prazosin (Prazosin HCl) 1 Mg Cap 1 Mg PO DAILY Tegretol (Carbamazepine) 200 Mg Tab 200 Mg PO BID Gabapentin 800 Mg Tab 800 Mg PO TID Requip (Ropinirole HCl) 2 Mg Tab 2 Mg PO HS Soma (Carisoprodol) 350 Mg Tab 350 Mg PO QID PRN Alprazolam 2 Mg Tab 2 Mg PO Q6H PRN Lantus Inj (Insulin Glargine) 1,000 Unit/10 Ml Vial 30 Units SQ HS Seroquel (Quetiapine Fumarate) 200 Mg Tab 200 Mg PO DAILY Allergies: Coded Allergies: ketorolac (Unverified Allergy, Severe, Anaphylaxis, 06/22/17) Active Ordered Medications Current Medications Medications (Trade) Dose Ordered Sig/Doris Route Start Time Stop Time Status Last Admin (NS Flush) 2 ml UNSCH PRN IV FLUSH 06/22/17 23:30 (NS Flush) 2 ml BID IV FLUSH 06/23/17 09:00 06/23/17 09:00 (Zofran Inj) 4 mg Q6H PRN IV PUSH 06/22/17 23:30 06/23/17 14:12 (Albuterol Neb) 2.5 mg Q2HR NEB PRN INH 06/22/17 23:30 (Heparin Inj) 5,000 units Q12HR SQ 06/23/17 09:00 06/23/17 10:19 Miscellaneous Information 1 Q361D XX 06/22/17 23:30 (Chlorhexidine 2% Cloth) 3 pack Taper DAILY@04 TOP 06/23/17 04:00 06/19/18 03:59 06/23/17 03:58 (Chlorhexidine 2% Cloth) 3 pack UNSCH PRN TOP 06/22/17 23:30 (Tess-Colace) 1 tab BID PO 06/23/17 09:00 (Milk Of Magnesia Liq) 30 ml Q12H PRN PO 06/22/17 23:30 (Senokot) 17.2 mg Q12H PRN PO 06/22/17 23:30 (Dulcolax Supp) 10 mg DAILY PRN RECTAL 06/22/17 23:30 (Lactulose Liq) 30 ml DAILY PRN PO 06/22/17 23:30 Ceftriaxone Sodium 1000 mg/ Sodium Chloride 100 ml @ 200 mls/hr Q24H IV 06/23/17 23:00 (TEGretol) 200 mg BID PO 06/23/17 09:00 06/23/17 10:18 (D50w (Vial) Inj) 50 ml UNSCH PRN IV PUSH 06/22/17 23:30 06/23/17 05:07 (Glucagon Inj) 1 mg UNSCH PRN OTHER 06/22/17 23:30 (NovoLOG SUPPLEMENTAL SCALE) 1 Q4HR SQ 06/23/17 00:00 (Narcan Inj) 0.4 mg Q2M PRN IV PUSH 06/23/17 00:00 (Pneumovax-23 Inj) 25 mcg ONCE ONCE IM 06/24/17 10:00 06/24/17 10:01 (Tylenol) 650 mg Q4H PRN PO 06/23/17 05:00 06/23/17 05:11 Dextrose/Sodium Chloride 1,000 ml @ 75 mls/hr [id number] IV 06/23/17 08:15 06/23/17 08:28 Levofloxacin/ Dextrose 100 ml @ 100 mls/hr Q24H IV 06/23/17 09:00 06/23/17 23:59 06/23/17 10:18 Levofloxacin/ Dextrose 50 ml @ 50 mls/hr Q24H IV 06/24/17 09:00 (Pepcid Inj) 10 mg Q12HR IV PUSH 06/23/17 21:00 (Dilaudid Pf Inj) 1 mg Q4H PRN IV PUSH 06/23/17 14:00 06/23/17 18:15 Family History Family history reviewed and noncontributory to present illness Social History Drug abuse - per EMS reportedly snorted morphine tablets Physical Exam Vital Signs Date Time Temp Pulse Resp B/P (MAP) Pulse Ox O2 Delivery O2 Flow Rate FiO2 06/23/17 18:00 98 19 121/68 (85) 06/23/17 18:00 96 06/23/17 16:00 99.0 102 18 119/67 (84) 06/23/17 16:00 122 06/23/17 15:32 96 21 06/23/17 15:00 102 18 122/58 (79) 06/23/17 15:00 100 06/23/17 14:03 94 17 118/60 (79) 06/23/17 14:02 96 06/23/17 13:00 96 99/40 (59) 06/23/17 12:00 122 06/23/17 12:00 98 19 121/68 (85) 06/23/17 11:00 98 18 123/57 (79) 06/23/17 10:00 96 06/23/17 10:00 94 17 118/60 (79) 06/23/17 09:00 96 20 119/60 (79) 96 06/23/17 08:45 95 Nasal Cannula 2.00 06/23/17 08:01 100.7 112 24 124/62 (82) 95 06/23/17 08:00 112 23 95 06/23/17 08:00 122 06/23/17 07:14 120 06/23/17 07:10 124 26 121/57 (78) 95 06/23/17 06:10 124 06/23/17 06:01 102.1 124 16 141/74 (96) 94 06/23/17 05:00 126 15 125/56 (79) 98 06/23/17 05:00 126 15 125/56 (79) 92 06/23/17 04:19 128 06/23/17 04:00 128 11 140/63 (88) 96 06/23/17 04:00 103.0 128 22 140/63 (88) 95 06/23/17 03:00 128 21 157/74 (101) 98 06/23/17 02:20 100 Nasal Cannula 6.00 06/23/17 02:09 136 23 159/81 (107) 100 06/23/17 02:05 135 24 159/81 (107) 98 06/23/17 02:05 134 24 100 06/23/17 02:00 134 06/23/17 01:00 118 23 100 06/23/17 01:00 118 23 162/87 (112) 100 06/23/17 01:00 128 06/23/17 00:45 102 20 143/70 (94) 06/23/17 00:36 98.1 122 24 158/79 (105) 98 06/22/17 23:00 98 20 134/70 (91) 98 Nasal Cannula 4.00 06/22/17 22:35 97 20 132/68 (89) 97 06/22/17 22:29 98 Nasal Cannula 4.00 06/22/17 22:00 108 16 138/72 (94) 97 Nasal Cannula 4.00 06/22/17 21:50 98 20 4 Nasal Cannula 06/22/17 21:34 97.8 107 20 147/84 (105) 89 06/22/17 21:34 107 20 147/84 (105) 92 Nasal Cannula 2.00 Physical Exam GENERAL: This is a well-nourished, well-developed patient, in no apparent distress. SKIN: No rashes, ecchymoses or lesions. Cool and dry. HEAD: Atraumatic. Normocephalic. EYES: Extraocular motions intact. No scleral icterus. No injection or drainage. ENT: Nose without bleeding, purulent drainage. Airway patent. NECK: Trachea midline. No JVD or lymphadenopathy. CARDIOVASCULAR: Normal pulses RESPIRATORY: Nonlabored. GASTROINTESTINAL: Abdomen soft, non-tender, tender to palpation GENITOURINARY: Parnell catheter in place, clear yellow urine MUSCULOSKELETAL: Extremities without clubbing, cyanosis, or edema NEUROLOGICAL: Awake and alert. Motor and sensory grossly within normal limits. Normal speech. Lab results reviewed: Yes Laboratory Tests Test 06/22/17 21:42 06/22/17 21:55 06/22/17 22:25 06/23/17 05:30 Blood Gas Puncture Site RT RADIAL Blood Gas Patient Temperature 98.6 Blood Gas HCO3 23 Blood Gas Base Excess -1.5 Blood Gas Oxygen Saturation 92 Arterial Blood pH 7.35 Arterial Blood Partial Pressure CO2 43 Arterial Blood Partial Pressure O2 75 Arterial Blood Oxygen Content 9.8 Arterial Blood Carboxyhemoglobin 1.3 Arterial Blood Methemoglobin 0.9 Blood Gas Hemoglobin 7.5 Oxygen Delivery Device NASAL CANNULA Blood Gas Liter Flow 6 White Blood Count 19.3 34.3 Red Blood Count 2.63 2.72 Hemoglobin 8.0 8.3 Hematocrit 24.7 24.9 Mean Corpuscular Volume 93.9 91.7 Mean Corpuscular Hemoglobin 30.5 30.6 Mean Corpuscular Hemoglobin Concent 32.5 33.4 Red Cell Distribution Width 15.2 14.8 Platelet Count 591 597 Mean Platelet Volume 7.9 7.4 Neutrophils (%) (Auto) 91.2 97.0 Lymphocytes (%) (Auto) 4.0 1.4 Monocytes (%) (Auto) 1.3 0.1 Eosinophils (%) (Auto) 2.6 1.1 Basophils (%) (Auto) 0.9 0.4 Neutrophils # (Auto) 17.5 33.3 Lymphocytes # (Auto) 0.8 0.5 Monocytes # (Auto) 0.3 0.0 Eosinophils # (Auto) 0.5 0.4 Basophils # (Auto) 0.2 0.1 CBC Comment DIFF FINAL AUTO DIFF Differential Comment FINAL DIFF MANUAL Prothrombin Time 10.7 Prothromb Time International Ratio 1.0 Activated Partial Thromboplast Time 29.7 Blood Urea Nitrogen 21 23 Creatinine 2.40 2.50 Random Glucose 237 132 Total Protein 6.9 Albumin 2.4 Calcium Level 7.9 7.6 Alkaline Phosphatase 402 Aspartate Amino Transf (AST/SGOT) 31 Alanine Aminotransferase (ALT/SGPT) 20 Total Bilirubin 0.2 Sodium Level 136 140 Potassium Level 4.6 4.5 Chloride Level 104 109 Carbon Dioxide Level 23.5 23.0 Anion Gap 9 8 Estimat Glomerular Filtration Rate 22 21 Total Creatine Kinase 75 Troponin I LESS THAN 0.02 Salicylates Level LESS THAN 1.7 Acetaminophen Level 5.6 Ethyl Alcohol Level LESS THAN 3 Urine Collection Type VOIDED Urine Color STRAW Urine Turbidity CLOUDY Urine pH 6.0 Urine Specific [place] 1.011 Urine Protein TRACE Urine Glucose (UA) 250 Urine Ketones NEG Urine Occult Blood LARGE Urine Nitrite NEG Urine Bilirubin NEG Urine Leukocyte Esterase LARGE Urine WBC INNUM Urine WBC Clumps FEW Urine Squamous Epithelial Cells 0-1 Urine Bacteria RARE Urine Yeast (Budding) FEW Microscopic Urinalysis Comment CULTURE INDICATED Urine Opiates Screen POS Urine Barbiturates Screen NEG Urine Amphetamines Screen NEG Urine Benzodiazepines Screen POS Urine Cocaine Screen NEG Urine Cannabinoids Screen NEG Differential Total Cells Counted 100 Neutrophils % (Manual) 85 Band Neutrophils % 8 Lymphocytes % 4 Monocytes % 1 Eosinophils % 2 Neutrophils # (Manual) 31.9 Lactic Acid Level 1.7 Test 06/23/17 06:40 06/23/17 07:44 Tumor Marker HCG LESS THAN 1 Urine Random Creatinine 17.8 Urine Random Sodium 88 Date/Time Source Procedure Growth Status 06/23/17 06:50 Blood Peripheral Aerobic Blood Culture Pending Received 06/23/17 06:50 Blood Peripheral Anaerobic Blood Culture Pending Received 06/23/17 05:32 Nasal Aspirate Influenza Types A,B Antigen (PEDRO) - Final NEGATIVE FOR FLU A AND B ANTIGEN.... Complete 06/22/17 22:25 Urine Random Urine Urine Culture - Preliminary No growth. Resulted Result Diagram: 06/23/17 0530 06/23/17 0530 Personally reviewed images: Yes Imaging Last Impressions Chest X-Ray 06/23/17 0600 Signed Impressions: Service Date/Time: Friday, June 23, 2017 06:01 - CONCLUSION: New bilateral perihilar opacities most characteristic of early pulmonary edema. This may be cardiogenic or noncardiogenic in origin. Surendra Wright MD Renal Ultrasound 06/23/17 0000 Signed Impressions: Service Date/Time: Friday, June 23, 2017 09:11 - CONCLUSION: 1. Bilateral pelvocaliectasis, right greater than left. 2. No stones. Edgar Vieira MD Chest CT 06/23/17 0000 Signed Impressions: Service Date/Time: Friday, June 23, 2017 09:03 - CONCLUSION: Nonspecific but severe bilateral air space consolidation involving all lobes but most prominent in the lower lobes bilaterally. Infectious process could have this appearance including atypical infections. Also, inflammatory processes should be considered in differential diagnosis. Suggest followup imaging to confirm resolution. Bill Gaxiola MD Abdomen/Pelvis CT 06/23/17 0000 Signed Impressions: Service Date/Time: Friday, June 23, 2017 09:03 - CONCLUSION: 1. Severe right hydronephrosis and hydroureter from uncertain etiology. No obstructing stone is present. No definite mass is seen on this noncontrast examination. However, cannot exclude a distal right ureteral lesion on this examination. 2. There is trace free fluid in the abdomen and pelvis. 3. There are multiple small retroperitoneal lymph nodes in the abdomen. However, these are technically not enlarged by size criteria. Suggest attention to these on followup imaging. Bill Gaxiola MD Assessment and Plan Problem List: (1) Acute kidney injury ICD Code: N17.9 - Acute kidney failure, unspecified Status: Acute (2) Hematuria ICD Code: R31.9 - Hematuria, unspecified (3) Diabetes mellitus ICD Code: E11.9 - Type 2 diabetes mellitus without complications (4) Obstructive uropathy ICD Code: N13.9 - Obstructive and reflux uropathy, unspecified (5) Acute renal failure (ARF) ICD Code: N17.9 - Acute kidney failure, unspecified Assessment and Plan -CT scan images personally reviewed. Right sided hydronephrosis noted without an obvious obstructing lesion or stone -Given the significant hydronephrosis and overall clinical status with fevers and elevated WBC, decompression of the right collecting system is indicated -Careful review of the CT scan again shows no obvious obstruction, however any intraureteral lesion or stricture cannot be identified on this study. Placement of an indwelling ureteral stent may be unsuccessful which would then require nephrostomy tube. In addition, given her history of substance abuse, lack of follow-up, and poor compliance, placement of an internal bacteriologist medical would not be the best option as a stent left in place without proper follow-up may result in stone formation, renal failure, and eventual dialysis. -Recommend placement of a right nephrostomy tube as this is direct access to the kidney to allow drainage. This also allows close monitoring of this kidney and it's output. In addition, this external tube can be managed with future antegrade nephrostogram to evaluate patency of her ureter and may potentially be removed later once medically stable and if there is no evidence of obstruction. -If her Creatinine and overall clinical picture improves overnight, it may be worth repeating renal U/S or CT or nuclear medicine renal scan to determine if she continues to have hydronephrosis or obstruction of this right renal unit and decide if decompression is truly necessary. Now that she has a catheter in place, there may be improvement in her overall clinical picture with antibiotics and fluid resuscitation as there is no clear cause for her right sided hydronephrosis based on current studies -Case discussed with IR. Plan for Right nephrostomy tube tomorrow pending their evaluation as well -Will follow Problem Qualifiers (1) Overdose of analgesic: (2) Opiate overdose: (3) Anemia: Qualified Codes: D50.9 - Iron deficiency anemia, unspecified (4) Diabetes mellitus: (5) Hematuria: Qualified Codes: R31.29 - Other microscopic hematuria (6) Acute renal failure (ARF): Qualified Codes: N17.9 - Acute kidney failure, unspecified Jaya Holman MD Jun 23, 2017 19:53
[2017-06-23] MEDS: cefTRIAXone INJ 1,000 MG in SODIUM CHLORIDE 0.9% INJ 100 ML IV SCH (22:16)
[2017-06-24] VITALS (13 sets, daily range): BP systolic 133–203; BP diastolic 60–91; PULSE 70–102; RESP 14–26; TEMP 98.6–99.6; O2SAT 93–100
[2017-06-24] MEDS: DEXTROSE 50% IN WATER 50 ML VIAL(D50) IV PUSH PRN ×2 (00:10→05:07)
[2017-06-24] MEDS: HYDROmorphone HCL PF 1 MG/ML VIAL IV PUSH PRN ×5 (02:47→23:15)
[2017-06-24] MEDS: ONDANSETRON HCL 4 MG/2 ML VIAL IV PUSH PRN ×2 (03:31→20:25)
[2017-06-24] MEDS: INSULIN ASPART SUPPLEMENTAL SCALE SQ SCH ×6 (04:00→20:24)
[2017-06-24] MEDS: CHLORHEXIDINE GLUCONATE 2 % 1 PACK (2 CLOTHS) TOP SCH (04:00)
[2017-06-24] MEDS ORDERED: DEXTROSE 50% IN WATER 50 ML SYRINGE ONE (05:03)
[2017-06-24] MEDS: HEPARIN SODIUM - SQ 10,000 UNITS/ML VIAL SQ SCH ×2 (08:47→20:25)
[2017-06-24] MEDS: carBAMazepine 200 MG TAB PO SCH ×2 (09:00→20:25)
[2017-06-24] MEDS: DOCUSATE SODIUM 50 MG/SENNA 8.6 MG TAB PO SCH ×2 (09:00→20:25)
[2017-06-24] MEDS: FAMOTIDINE 20 MG/2 ML VIAL IV PUSH SCH ×2 (09:05→20:25)
[2017-06-24] MEDS: LEVOFLOXACIN/DEXTROSE 250 MG/50 ML IV SCH (09:06)
[2017-06-24] MEDS: SODIUM CHLORIDE 0.9% FLUSH 10 ML FLUSH IV FLUSH SCH ×2 (09:06→20:24)
[2017-06-24] MEDS ORDERED: INFLUENZA VIRUS VACCINE (QUADRIVALENT) 0.5 ML SYR IM ONE (10:00)
[2017-06-24] MEDS ORDERED: PNEUMOCOCCAL POLYVALENT INJ 25 MCG/0.5 ML SYR IM ONE (10:00)
[2017-06-24 10:04] LABS: MEAN CORPUSCULAR HEMOGLOBIN 29.4 PG (27.0-34.0); PLATELET COUNT 466 TH/MM3 (150-450); RED BLOOD COUNT 2.39 MIL/MM3 (4.00-5.30); RED CELL DISTRIBUTION WIDTH 15.3 % (11.6-17.2); WHITE BLOOD COUNT 18.5 TH/MM3 (4.0-11.0)
[2017-06-24 10:05] LABS: HEMO FLAGS AUTO DIFF
[2017-06-24 10:15] LABS: ALT (GPT) 16 U/L (10-53); ANION GAP 8 MEQ/L (5-15); AST (GOT) 22 U/L (15-37); BICARBONATE 24.2 MEQ/L (21.0-32.0); CHLORIDE 109 MEQ/L (98-107); GLOMERULAR FILTRATION RATE 27 ML/MIN (>89); MAGNESIUM 1.4 MG/DL (1.5-2.5); POTASSIUM 4.6 MEQ/L (3.5-5.1); SODIUM (NA) 141 MEQ/L (136-145)
[2017-06-24 10:16] LABS: ALKALINE PHOSPHATASE 369 U/L (45-117); TOTAL BILIRUBIN ADULT 0.2 MG/DL (0.2-1.0)
[2017-06-24 10:18] LABS: BLOOD UREA NITROGEN 17 MG/DL (7-18)
[2017-06-24 10:55] LABS: BANDS 9 % (0-6); EOSINOPHILS 1 % (0-4); MYELOCYTES 1 % (0-0); NEUTROPHIL # MANUAL DIFF 14.6 TH/MM3 (1.8-7.7); POLYS (SEG NEUTROPHILS) 69 % (16-70); WBC DIFF SAMPLE 100
[2017-06-24 10:56] LABS: PLATELET ESTIMATE SMEAR HIGH (NORMAL); PLATELET MORPHOLOGY NORMAL (NORMAL); SCAN/DIFF FINAL DIFF MANUAL
[2017-06-24] MEDS ORDERED: DO NOT ADM ANY ANTICOAGULANT DRUGS PRN (12:37)
[2017-06-24] MEDS ORDERED: *morphine SULFATE 8 MG/ML PERIprocedure ONLY ONE ×3 (12:44→13:31)
--- NOTE | 2017-06-24 13:36 | PD.RAD ---
Post Procedure Progress Note Pre Procedure Diagnosis: (1) Obstructive uropathy Post Procedure Diagnosis: (1) Obstructive uropathy Procedure Date: Jun 24, 2017 Supervising Radiologist: Gaurav Parks Proceduralist/Assist: Zhanna Lux, RT(R)(CV), Zak Shelton RT(R) Anesthesia: General Plan of Activity Patient to Unit: Nursing Unit Patient Condition: Good See PACS Report for procedural detail/treatment Drainage Procedure Procedure 1 Imaging Guidance: Fluoroscopy Side: Right Procedure Type: Nephrostomy, Ureteral Stent Procedure: Placement Drainage: Stigler drainage Fluid Description: Cloudy Gaurav Parks MD Jun 24, 2017 13:36
--- NOTE | 2017-06-24 14:06 | RADRPT ---
EXAM DATE/TIME: 06/24/2017 11:39 [facility] COMPARISON: No previous studies available for comparison. INDICATIONS : Patient presents with Hydronephrosis in need of Nephrostomy tube placement. MEDICAL HISTORY : Arthritis Diabetes DVT Gasteroparesis PTSD Seizures SURGICAL HISTORY : Back surgery Tubectomy ENCOUNTER: Initial ACUITY: 2 days PAIN SCORE: 7/10 LOCATION: Right lower quadrant FLUORO TIME: 5.9 minutes IMAGE SERIES: 2 CONTRAST: 15 cc Omnipaque (iohexol) 350 DEVICE(S): 1.) 8 Sami 24 cm Expel nephroureteral stent Anesthesia and pain control was provided by the Anesthesia department. PROCEDURE : 1. Ultrasound-guided puncture of the kidney. 2. Antegrade percutaneous pyelogram. 3. Percutaneous nephroureteral stent placement. 4. Conscious sedation with continuous EKG and oximetry monitoring. The risks, benefits and alternatives to the procedure were explained and verbal and written consent w as obtained. The site was prepped in sterile fashion. Full sterile technique was used, including ca p, mask, sterile gloves and gown and a large sterile sheet. Hand hygiene and 2% chlorhexidine and/or betadine/alcohol prep was utilized per protocol for cutaneous antisepsis. Sterile gel and sterile p robe cover were utilized for ultrasound guidance. The skin and subcutaneous tissues were infiltrated with local anesthetic solution. With ultrasound and fluoroscopic guidance the selected kidney was punctured and a percutaneous antegr avani pyelogram was performed demonstrating a dilated collecting system. Serial dilatation was perform ed and the prescribed nephroureteral stent was placed with the proximal portion within the renal pelv is and the distal extent in the urinary bladder. Injection of positive contrast demonstrates good po sition of the catheter. The images demonstrate good positioning of the catheter with redundancy of the mid ureter which may r eflect a long-standing obstruction. A ureterocele is present but there are no findings of distal uret eral obstruction. Conscious sedation was performed with the prescribed dosages and duration as above in the presence of an independent trained radiology nurse to assist in the monitoring of the patient. EKG and oximetry remained stable throughout the procedure. The patient tolerated the procedure well and there were n o complications. The patient was sent to post anesthesia recovery in stable condition. CONCLUSION: Uncomplicated nephroureteral stent placement as above. Gaurav Parks MD on June 24, 2017 at 14:02 Board Certified Radiologist. This report was verified electronically.
--- NOTE | 2017-06-24 17:30 | HHI.CCPN ---
Subjective Remarks/Hospital Course This is a 46-year-old female that presented to the ED via EMS after an overdose. According to EMS the patient's found the patient in the bathroom, unconscious, apparently not breathing. The initiated CPR and called 911. When the police arrived they did CPR for several minutes until EMS arrived. EMS states when they arrived the patient had agonal respirations. They were unable to place an IV, however, were able to place an IO in the right lower extremity. EMS states the patient's initial blood sugar was 215 and they administered Narcan 2 mg through the IO. EMS states the patient's GCS went from 3 to 14. Upon arrival the patient was a GCS of 15. The patient states she is prescribed morphine extended release 30 mg 4 times a day for chronic pain. The patient states that she took apart and snorted 1 30 milligram tablet at approximately 8 PM. 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 Flores. The patient did complain of mild chest pain and shortness of breath, upon admission. The patient's history is significant for multiple admissions previously for substance overdose (Morphine), last admission 03/2017. The patient also had previous medical history of admissions in the past of substance abuse with heroin and cocaine, patient has a history of PTSD and chronic pain syndrome secondary to a remote history of back surgery. Laboratory and imaging studies were performed in the ED, revealed normal lactic acid however a significant leukocytosis, and probable UTI, but also noted microscopic hematuria, and elevation in creatinine. The patient was placed on Rocephin. The patient's creatinine was noted to be elevated last evening. Upon discussion with the patient, the patient states she was admitted to [facility] on 06/12/17 and was admitted for urinary tract infection, patient signed out AMA on06/21/2017. Patient also reported seeing Dr. Flores regarding as related before tumors in the right lung and duodenum. Critical care medicine was consulted. Subjective: 06/24: Afebrile. Patient underwent nephrostomy tube placement. Now with complaints of postprocedural pain. Ofirmev added to medication regimen, and Lortab. Objective Vital Signs Date Time Temp Pulse Resp B/P (MAP) Pulse Ox O2 Delivery O2 Flow Rate FiO2 06/24/17 16:00 84 06/24/17 16:00 98.7 14 186/91 (122) 93 06/24/17 13:55 Nasal Cannula 2 06/23/17 15:32 21 Intake and Output 06/24/17 06/24/17 06/25/17 08:00 16:00 00:00 Intake Total 550 ml Output Total 1520 ml 1610 ml Balance -970 ml -1610 ml Result Diagram: 06/24/17 0920 06/24/17 0920 Other Results Microbiology Date/Time Source Procedure Growth Status 06/23/17 05:32 Nasal Aspirate Influenza Types A,B Antigen (PEDRO) - Final NEGATIVE FOR FLU A AND B ANTIGEN.... Complete 06/22/17 22:25 Urine Random Urine Urine Culture - Final 10-50,000 CFU/ML MIXED GRAM POSITIVE ... Complete Imaging Last 24 hours Impressions Chest X-Ray 06/23/17 0600 Signed Impressions: Service Date/Time: Friday, June 23, 2017 06:01 - CONCLUSION: New bilateral perihilar opacities most characteristic of early pulmonary edema. This may be cardiogenic or noncardiogenic in origin. Surendra Wright MD Chest X-Ray 06/22/172136 Signed Impressions: Service Date/Time: Thursday, June 22, 2017 22:24 - CONCLUSION: No evidence of acute cardiopulmonary disease. Bill Ruvalcaba MD Objective Remarks GENERAL: This is a well-developed well-nourished female, in no acute distress SKIN: Warm and dry. Well-healed skin grafts noted on forearm HEAD: Atraumatic. Normocephalic. EYES: Pupils equal and round. No scleral icterus. No injection or drainage. ENT: No nasal bleeding or discharge. Mucous membranes pink and moist. NECK: Trachea midline. No JVD. CARDIOVASCULAR: Normal rate, regular rhythm. RESPIRATORY: No accessory muscle use. Clear to auscultation. Breath sounds equal bilaterally. O2 saturation 96 % on room air GASTROINTESTINAL: Abdomen soft, non-tender, nondistended. No guarding. MUSCULOSKELETAL: Extremities without clubbing, cyanosis, or edema. No obvious deformities. NEUROLOGICAL: Awake and alert. RASS 0. No gross focal/sensory deficits. Follows commands in all 4 extremities. Procedures 06/24 nephrostomy tube placement Urinary Catheter: Yes Assessment to: Continue Muhammad insert reason: Obstruction/Retention A/P Assessment and Plan Assessment Opiate overdose Opiate dependency Acute renal failure Hematuria Leukocytosis Bandemia Sepsis Chronic pain syndrome PTSD Possible aspiration Diabetes mellitus Hypoglycemia Severe Hydronephrosis (right) PLAN Plan by systems: Neurologic: Avoid sedative type medications Neurochecks per ICU protocol Monitor for signs of opiate withdrawal Tylenol 650 every 4 hours when necessary for temperature greater than 100.4 Dilaudid 1 mg every 4 hours for breakthrough pain Begin Ofirmev 1 g every 6 hours 24 hours for postprocedural pain Lortab 1 tab every 6 hours when necessary for pain scale 3-7 Psychiatry consult secondary to history of multiple overdoses Respiratory: Maintain O2 sat greater than 92% O2 1-4 L/m nasal cannula, currently O2 saturation 96 % on room air Incentive spirometry every 4 hours while awake Duo nebs every 4 hours when necessary for wheezing Chest x-ray 06/22-no active disease process, now 06/23-new hazy B/L pulm infiltrates( pulmonary edema versus aspiration) Cardiovascular: Maintain MAP > 65 mmHg Telemetry-sinus rhythm Renal: Obtain urine sodium, creatinine, urine eosinophils CT abdomen and pelvis moderate to severe right hydronephrosis-discussed with Dr. Holman, plan for nephrostomy tube placement by IR, spoke with IR Renal ultrasound-hydronephrosis right Insert Muhammad-patient currently has refused -- Strict I/Os Nephrology following Urology Dr. Holman FEN/GI Begin heart healthy diet Monitor BMP Creatinine elevation 2.4->2.5 this am Heme/ID: Monitor CBC Patient previously seen by Dr. Flores's office obtain medical records from patient's hematology oncologist Patient currently on Rocephin 1 GM q 24hrs will broaden empiric coverage add Levaquin Follow-up blood urine cultures Influenza negative Endocrine: Glucose monitoring per ICU protocol, low dose regimen -- SSI Prophylaxis: GI Prophylaxis Famotidine in the setting of [place] I DVT Prophylaxis -- SCDs Heparin 500 SQ BID Lines: Peripheral IVs providing adequate access. Central line if indicated Dispo: Level III Plan transfer to [facility] in a.m.. Plan transfer to floor. Physician Mi Inman MD Jun 24, 2017 17:30
[2017-06-24] MEDS: ACETAMINOPHEN/HYDROcodone 325 MG/10 MG TAB PO PRN ×2 (18:13→23:15)
[2017-06-24] MEDS: ACETAMINOPHEN 1000 MG/100 ML 100 ML IV SCH (18:14)
[2017-06-24] MEDS: DEXT 5%-NACL 0.9% 1000 ML INJ 1,000 ML IV SCH (18:15)
--- NOTE | 2017-06-24 18:16 | HHI.PR ---
Subjective Patient symptoms today Doing well s/p right nephrostomy tube placement. Reports pain Objective Vital Signs Vital Signs Date Time Temp Pulse Resp B/P (MAP) Pulse Ox O2 Delivery O2 Flow Rate FiO2 06/24/17 16:00 84 06/24/17 16:00 98.7 84 14 186/91 (122) 93 06/24/17 14:00 70 06/24/17 13:55 97.6 73 16 162/75 (104) 98 Nasal Cannula 2 06/24/17 13:50 71 17 160/68 (98) 100 06/24/17 13:45 73 16 161/72 (101) 98 Nasal Cannula 2 06/24/17 13:35 71 18 203/90 (127) 100 06/24/17 13:30 72 16 156/74 (101) 98 Nasal Cannula 2 06/24/17 13:15 74 16 153/70 (97) 97 Nasal Cannula 2 06/24/17 13:01 15 06/24/17 13:00 72 15 158/71 (100) 97 Nasal Cannula 2 06/24/17 12:49 15 06/24/17 12:45 74 15 149/76 (100) 96 Nasal Cannula 2 06/24/17 12:35 98.7 73 20 133/60 (84) 100 Nasal Cannula 3 06/24/17 10:00 97 06/24/17 08:00 97 06/24/17 08:00 99.6 94 24 133/60 (84) 95 06/24/17 06:00 99 06/24/17 04:00 98.6 102 20 151/74 (99) 95 06/24/17 04:00 102 06/24/17 02:00 95 06/24/17 00:00 98.6 89 23 135/67 (89) 98 06/24/17 00:00 89 06/23/17 22:00 93 06/23/17 20:00 98.5 98 19 128/63 (84) 06/23/17 19:00 98 17 103/57 (72) Intake & Output 06/24/17 06/24/17 07:00 19:00 Intake Total 650 ml Output Total 2385 ml 2210 ml Balance -1735 ml -2210 ml Intake Oral 0 ml IV Total 650 ml Output Urine Total 2385 ml 1560 ml Drainage Total 650 ml # Bowel Movements 1 Result Diagram: 06/24/1791906/24/17919 Imaging Last 24 hours Impressions Drainage Catheter Insertion 06/24/17 0000 Signed Impressions: Service Date/Time: Saturday, June 24, 2017 11:39 - CONCLUSION: Uncomplicated nephroureteral stent placement as above. Gaurav Parks MD Objective Remarks AAOx3, NAD Resp NL Right nephrostomy tube in place, draining well, light pink urine output Medications and IVs Current Medications Medications (Trade) Dose Ordered Sig/Doris Route Start Time Stop Time Status Last Admin (NS Flush) 2 ml UNSCH PRN IV FLUSH 06/22/17 23:30 (NS Flush) 2 ml BID IV FLUSH 06/23/17 09:00 06/24/17 09:06 (Zofran Inj) 4 mg Q6H PRN IV PUSH 06/22/17 23:30 06/24/17 03:31 (Albuterol Neb) 2.5 mg Q2HR NEB PRN INH 06/22/17 23:30 (Heparin Inj) 5,000 units Q12HR SQ 06/23/17 09:00 06/23/17 19:33 Miscellaneous Information 1 Q361D XX 06/22/17 23:30 (Chlorhexidine 2% Cloth) 3 pack Taper DAILY@04 TOP 06/23/17 04:00 06/19/18 03:59 06/24/17 04:00 (Chlorhexidine 2% Cloth) 3 pack UNSCH PRN TOP 06/22/17 23:30 (Tess-Colace) 1 tab BID PO 06/23/17 09:00 06/23/17 19:32 (Milk Of Magnesia Liq) 30 ml Q12H PRN PO 06/22/17 23:30 (Senokot) 17.2 mg Q12H PRN PO 06/22/17 23:30 (Dulcolax Supp) 10 mg DAILY PRN RECTAL 06/22/17 23:30 (Lactulose Liq) 30 ml DAILY PRN PO 06/22/17 23:30 Ceftriaxone Sodium 1000 mg/ Sodium Chloride 100 ml @ 200 mls/hr Q24H IV 06/23/17 23:00 06/23/17 22:16 (TEGretol) 200 mg BID PO 06/23/17 09:00 06/23/17 19:32 (D50w (Vial) Inj) 50 ml UNSCH PRN IV PUSH 06/22/17 23:30 06/24/17 05:07 (Glucagon Inj) 1 mg UNSCH PRN OTHER 06/22/17 23:30 (NovoLOG SUPPLEMENTAL SCALE) 1 Q4HR SQ 06/23/17 00:00 (Narcan Inj) 0.4 mg Q2M PRN IV PUSH 06/23/17 00:00 (Tylenol) 650 mg Q4H PRN PO 06/23/17 05:00 06/23/17 05:11 Dextrose/Sodium Chloride 1,000 ml @ 75 mls/hr [id number] IV 06/23/17 08:15 06/23/17 22:16 Levofloxacin/ Dextrose 50 ml @ 50 mls/hr Q24H IV 06/24/17 09:00 06/24/17 09:06 (Pepcid Inj) 10 mg Q12HR IV PUSH 06/23/17 21:00 06/24/17 09:05 (Dilaudid Pf Inj) 1 mg Q4H PRN IV PUSH 06/23/17 14:00 06/24/17 14:30 Miscellaneous Information ALL NURSING DEPARTME... UNSCH PRN .XX 06/24/17 12:37 06/25/17 12:36 Acetaminophen 100 ml @ 400 mls/hr Q6H IV 06/24/17 18:00 06/25/17 17:59 ([place]pton 10-325 Mg) 1 tab Q6H PRN PO 06/24/17 17:45 Assessment and Plan Problem List: (1) Acute kidney injury ICD Code: N17.9 - Acute kidney failure, unspecified Status: Acute (2) Hematuria ICD Code: R31.9 - Hematuria, unspecified (3) Diabetes mellitus ICD Code: E11.9 - Type 2 diabetes mellitus without complications (4) Obstructive uropathy ICD Code: N13.9 - Obstructive and reflux uropathy, unspecified (5) Acute renal failure (ARF) ICD Code: N17.9 - Acute kidney failure, unspecified Assessment and Plan -WBC improving -Continue to monitor Cr -Continue Abx -Patient will likely need to keep nephrostomy tube in place and discharged with it -She will eventually need investigation of this collecting system with antegrade nephrostogram Problem Qualifiers (1) Hematuria: Qualified Codes: R31.29 - Other microscopic hematuria (2) Diabetes mellitus: (3) Acute renal failure (ARF): Qualified Codes: N17.9 - Acute kidney failure, unspecified Jaya Holman MD Jun 24, 2017 18:16
[2017-06-24] MEDS: cefTRIAXone INJ 1,000 MG in SODIUM CHLORIDE 0.9% INJ 100 ML IV SCH (23:14)
[2017-06-25] VITALS (13 sets, daily range): BP systolic 151–186; BP diastolic 70–78; PULSE 76–92; RESP 10–24; TEMP 98–98.8; O2SAT 94–98
[2017-06-25] MEDS: ACETAMINOPHEN 1000 MG/100 ML 100 ML IV SCH ×3 (00:53→15:30)
[2017-06-25] MEDS: CHLORHEXIDINE GLUCONATE 2 % 1 PACK (2 CLOTHS) TOP SCH (04:00)
[2017-06-25] MEDS: INSULIN ASPART SUPPLEMENTAL SCALE SQ SCH ×6 (04:00→21:59)
[2017-06-25] MEDS: HYDROmorphone HCL PF 1 MG/ML VIAL IV PUSH PRN ×5 (04:01→21:43)
[2017-06-25 05:07] LABS: AUTOMATED NEUTROPHIL # 7.8 TH/MM3 (1.8-7.7); BASOPHIL # 0.1 TH/MM3 (0-0.2); BASOPHIL % 0.9 % (0.0-2.0); EOSINOPHIL # 0.8 TH/MM3 (0-0.4); EOSINOPHIL % 7.4 % (0.0-4.0); HEMATOCRIT 21.2 % (35.0-46.0); HEMO FLAGS DIFF FINAL; LYMPH % 14.3 % (9.0-44.0); LYMPHOCYTE # 1.6 TH/MM3 (1.0-4.8); MEAN CELL VOLUME 93.8 FL (80.0-100.0); MONO % 6.2 % (0.0-8.0); NEUT % 71.2 % (16.0-70.0); PLATELET COUNT 370 TH/MM3 (150-450); RED BLOOD COUNT 2.26 MIL/MM3 (4.00-5.30); RED CELL DISTRIBUTION WIDTH 15.4 % (11.6-17.2)
[2017-06-25] MEDS ORDERED: ALPRAZolam 1 MG TAB PO PRN (05:30)
[2017-06-25 05:36] LABS: BICARBONATE 25.3 MEQ/L (21.0-32.0); MAGNESIUM 1.3 MG/DL (1.5-2.5)
[2017-06-25 05:37] LABS: POTASSIUM 5.2 MEQ/L (3.5-5.1)
[2017-06-25] MEDS: ACETAMINOPHEN/HYDROcodone 325 MG/10 MG TAB PO PRN ×3 (05:44→18:18)
[2017-06-25] MEDS: DEXT 5%-NACL 0.9% 1000 ML INJ 1,000 ML IV SCH (08:00)
[2017-06-25] MEDS: carBAMazepine 200 MG TAB PO SCH ×2 (08:04→21:42)
[2017-06-25] MEDS: GABAPENTIN 400 MG CAP PO SCH ×2 (08:04→12:19)
[2017-06-25] MEDS: HEPARIN SODIUM - SQ 10,000 UNITS/ML VIAL SQ SCH ×2 (08:04→21:41)
[2017-06-25] MEDS: LEVOFLOXACIN/DEXTROSE 250 MG/50 ML IV SCH (08:05)
[2017-06-25] MEDS: FAMOTIDINE 20 MG/2 ML VIAL IV PUSH SCH ×2 (08:05→21:43)
[2017-06-25] MEDS: SODIUM CHLORIDE 0.9% FLUSH 10 ML FLUSH IV FLUSH SCH ×2 (08:12→21:43)
[2017-06-25] MEDS: DOCUSATE SODIUM 50 MG/SENNA 8.6 MG TAB PO SCH ×2 (08:12→21:00)
--- NOTE | 2017-06-25 11:46 | PD.PSY.CON ---
Provisional Diagnosis Admission Date Jun 22, 2017 at 23:30 [place] I. Adjustment disorder with depressed mood and anxiety, history of bipolar disorder , rule out bipolar depression, rule out sedative hypnotics and opiate use disorder [place] II. Deferred History of Present Illness Service Psychiatry Consult Requested By ER team Reason for Consult Suicidal attempt Primary Care Physician Sukumar Logan MD HPI The patient is a 46-year-old woman, she is domiciled with her , unemployed, supported by [facility], with self-reported psychiatric history of bipolar disorder, anxiety, no previous psychiatric hospitalizations, the patient has been Bansal acted before due to accidental overdose, misuse of medications, she has been hospitalized in the past in the medical floor due to overdoses, she seen in the J pod by Ms. Puri in March 2017: under an ex parte initiated by her alleging that she has a substance use problem. As per documentation the patient has been found unconscious on 2 different occasions at home for apparent overdoses on cocaine and heroin. The patient has been to [facility] on May 2016 after she was found unresponsive and it was determined that she unintentionally overdosed on pain medication . At that point she did not meet the criteria for involuntary admission. She now presented to the ED via EMS after another overdose. According to EMS the patient's found the patient in the bathroom, unconscious, apparently not breathing. The initiated CPR and called 911. When the police arrived they did CPR for several minutes until EMS arrived. EMS states when they arrived the patient had agonal respirations. They were unable to place an IV, however, were able to place an IO in the right lower extremity. EMS states the patient' s initial blood sugar was 215 and they administered Narcan 2 mg through the IO. EMS states the patient's GCS went from 3 to 14. Upon arrival the patient was a GCS of 15. The patient states she is prescribed morphine extended release 30 mg 4 times a day for chronic pain. The patient states that she took apart and snorted 1 30 milligram tablet at approximately 8 PM. 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 Flores. The patient did complain of mild chest pain and shortness of breath, upon admission. The patient's history is significant for multiple admissions previously for substance overdose (Morphine), last admission 03/2017. The patient also had previous medical history of admissions in the past of substance abuse with heroin and cocaine, patient has a history of PTSD and chronic pain syndrome secondary to a remote history of back surgery. Laboratory and imaging studies were performed in the ED, revealed normal lactic acid however a significant leukocytosis, and probable UTI, but also noted microscopic hematuria, and elevation in creatinine. The patient was placed on Rocephin. The patient's creatinine was noted to be elevated last evening. Upon discussion with the patient, the patient states she was admitted to [facility] on 06/12/17 and was admitted for urinary tract infection, patient signed out AMA on06/21/2017. On psychiatric evaluation today the patient reports that she feels much better now. Patient says that she overdosed accidentally and this is the first time this happened to her. Patient is contradictory regarding her recent overdose. At the beginning she says that she uses medication of her , just 2 pills , because she was on pain, but later on says that she doesnt remember the amount of medications took. She clarifies multiple times that she did not try to commit suicide. I confronted the patient about previous visits to the ER and hospitalizations due to similar situation, she continued to deny that she has been in the hospital due to overdoses. Patient reported that she has been prescribed with Xanax 2 mg 4 times per day, will 200 mg at bedtime and also Tegretol 200 mg. She says that she is prescribed with this medication by her PCP for her bipolar disorder. At this moment she denies depressive symptoms, she denies symptoms of elza, denies suicidal and homicidal ideation, denies visual and auditory hallucinations. When I told the patient that I will have to call her for collateral information, she says that her is a liar, drug abuser and he cannot be believed. Patient denies the use of illicit drugs and alcohol. I tried to get collateral information from her , I called twice to the telephone number [phone], but he did not answer the phone. Review of Systems Constitutional: DENIES: Diaphoretic episodes, Fatigue, Fever, Weight gain, Weight loss, Chills, Dizziness, Change in appetite, Night Sweats Endocrine: DENIES: Abnorml menstrual pattern, Heat/cold intolerance, Polydipsia , Polyuria, Polyphagia Eyes: DENIES: Blurred vision, Diplopia, Eye inflammation, Eye pain, Vision loss , Photosensitivity, Double Vision Ears, nose, mouth, throat: DENIES: Tinnitus, Hearing loss, Vertigo, Nasal discharge, Oral lesions, Throat pain, Hoarseness, Ear Pain, Running Nose, Epistaxis, Sinus Pain, Toothache, Odynophagia Respiratory: DENIES: Apneas, Cough, Snoring, Wheezing, Hemoptysis, Sputum production, Shortness of breath Cardiovascular: DENIES: Chest pain, Palpitations, Syncope, Dyspnea on Exertion , PND, Lower Extremity Edema, Orthopnea, Claudication Gastrointestinal: DENIES: Abdominal pain, Black stools, Bloody stools, Constipation, Diarrhea, Nausea, Vomiting, Difficulty Swallowing, Anorexia Genitourinary: DENIES: Abnormal vaginal bleeding, Dysmenorrhea, Dyspareunia, Sexual dysfunction, Urinary frequency, Urinary incontinence, Urgency, Hematuria , Dysuria, Nocturia, Vaginal discharge Musculoskeletal: DENIES: Joint pain, Muscle aches, Stiffness, Joint Swelling, Back pain, Neck pain Integumentary: DENIES: Abnormal pigmentation, Pruritus, Rash, Nail changes, Breast masses, Breast skin changes, Nipple discharge Hematologic/lymphatic: DENIES: Bruising, Lymphadenopathy Immunologic/allergic: DENIES: Eczema, Urticaria Neurologic: DENIES: Abnormal gait, Headache, Localized weakness, Paresthesias, Seizures, Speech Problems, Tremor, Poor Balance Psychiatric: DENIES: Anxiety, Confusion, Mood changes, Depression, Hallucinations, Agitation, Suicidal Ideation, Homicidal Ideation, Delusions Past Family Social History Coded Allergies: ketorolac (Unverified Allergy, Severe, Anaphylaxis, 06/22/17) Reported Medications Apixaban (Eliquis) 5 Mg Tab, 5 MG PO BID for Blood Clot Prevention, #60 TAB 0 Refills 06/23/17 Insulin Glargine Inj (Lantus Inj) 1,000 Unit/10 Ml Vial, 20 UNITS SQ HS for Blood Sugar Management, VIAL 0 Refills 06/23/17 Insulin Lispro (Human) Inj (Humalog Kwikpen Pen Inj) 300 Unit/3 Ml Pen, 5 UNITS SQ ACHS SLIDING SCALE for Blood Sugar Management, PEN 0 Refills 09/06/16 Insulin Lispro (Human) Inj (Humalog Inj) 1,000 Unit/10 Ml Vial, 5-25 UNITS SQ ACHS for Blood Sugar Management, #1 VIAL 0 Refills Max dose at bedtime:( )units; sugars < 70,(0)units; sugars 150-199,(5)units; sugars 200-249,(10)units; sugars 250-299,(15)units; sugars 300-349,(20)units; sugars more than 349,(25)units. 09/06/16 Hydromorphone (Hydromorphone) 4 Mg Tab, 4 MG PO Q6H Y for PAIN, TAB 0 Refills 09/06/16 Prazosin (Prazosin) 1 Mg Cap, 1 MG PO DAILY for Blood Pressure Management, #60 CAP 0 Refills 09/06/16 Carbamazepine (Tegretol) 200 Mg Tab, 200 MG PO BID, #60 TAB 0 Refills 09/06/16 Gabapentin (Gabapentin) 800 Mg Tab, 800 MG PO TID, #90 TAB 0 Refills 05/29/16 Ropinirole (Requip) 2 Mg Tab, 2 MG PO HS, #30 TAB 0 Refills 05/29/16 Carisoprodol (Soma) 350 Mg Tab, 350 MG PO QID Y for PAIN, TAB 0 Refills 05/29/16 Alprazolam (Alprazolam) 2 Mg Tab, 2 MG PO Q6H Y for ANXIETY, TAB 05/29/16 Insulin Glargine Inj (Lantus Inj) 1,000 Unit/10 Ml Vial, 30 UNITS SQ HS for Blood Sugar Management, VIAL 0 Refills 05/29/16 Quetiapine (Seroquel) 200 Mg Tab, 200 MG PO DAILY, #30 TAB 0 Refills 05/29/16 Discontinued Reported Medications Insulin Glargine Inj (Lantus Inj) 1,000 Unit/10 Ml Vial, 40 UNITS SQ DAILY for Blood Sugar Management, VIAL 0 Refills 05/29/16 Current Medications Medications (Trade) Dose Ordered Sig/Doris Route Start Time Stop Time Status Last Admin (NS Flush) 2 ml UNSCH PRN IV FLUSH 06/22/17 23:30 (NS Flush) 2 ml BID IV FLUSH 06/23/17 09:00 06/25/17 08:12 (Zofran Inj) 4 mg Q6H PRN IV PUSH 06/22/17 23:30 06/24/17 20:25 (Albuterol Neb) 2.5 mg Q2HR NEB PRN INH 06/22/17 23:30 (Heparin Inj) 5,000 units Q12HR SQ 06/23/17 09:00 06/25/17 08:04 Miscellaneous Information 1 Q361D XX 06/22/17 23:30 (Chlorhexidine 2% Cloth) 3 pack Taper DAILY@04 TOP 06/23/17 04:00 06/19/18 03:59 06/24/17 04:00 (Chlorhexidine 2% Cloth) 3 pack UNSCH PRN TOP 06/22/17 23:30 (Tess-Colace) 1 tab BID PO 06/23/17 09:00 06/23/17 19:32 (Milk Of Magnesia Liq) 30 ml Q12H PRN PO 06/22/17 23:30 (Senokot) 17.2 mg Q12H PRN PO 06/22/17 23:30 (Dulcolax Supp) 10 mg DAILY PRN RECTAL 06/22/17 23:30 (Lactulose Liq) 30 ml DAILY PRN PO 06/22/17 23:30 Ceftriaxone Sodium 1000 mg/ Sodium Chloride 100 ml @ 200 mls/hr Q24H IV 06/23/17 23:00 06/24/17 23:14 (TEGretol) 200 mg BID PO 06/23/17 09:00 06/25/17 08:04 (D50w (Vial) Inj) 50 ml UNSCH PRN IV PUSH 06/22/17 23:30 06/24/17 05:07 (Glucagon Inj) 1 mg UNSCH PRN OTHER 06/22/17 23:30 (NovoLOG SUPPLEMENTAL SCALE) 1 Q4HR SQ 06/23/17 00:00 06/25/17 08:21 (Narcan Inj) 0.4 mg Q2M PRN IV PUSH 06/23/17 00:00 (Tylenol) 650 mg Q4H PRN PO 06/23/17 05:00 06/23/17 05:11 Dextrose/Sodium Chloride 1,000 ml @ 75 mls/hr [id number] IV 06/23/17 08:15 06/25/17 08:00 Levofloxacin/ Dextrose 50 ml @ 50 mls/hr Q24H IV 06/24/17 09:00 06/25/17 08:05 (Pepcid Inj) 10 mg Q12HR IV PUSH 06/23/17 21:00 06/25/17 08:05 (Dilaudid Pf Inj) 1 mg Q4H PRN IV PUSH 06/23/17 14:00 06/25/17 08:02 Miscellaneous Information ALL NURSING DEPARTME... UNSCH PRN .XX 06/24/17 12:37 06/25/17 12:36 Acetaminophen 100 ml @ 400 mls/hr Q6H IV 06/24/17 18:00 06/25/17 17:59 06/25/17 06:20 ([place] 10-325 Mg) 1 tab Q6H PRN PO 06/24/17 17:45 06/25/17 05:44 (Xanax) 2 mg Q6H PRN PO 06/25/17 05:30 06/25/17 08:02 (Neurontin) 800 mg TID PO 06/25/17 09:00 06/25/17 08:04 (SEROquel) 200 mg DAILY PO 06/25/17 09:00 (Requip) 2 mg HS PO 06/25/17 21:00 Family Psych History Patient denies family psychiatric history Social History Patient was born and raised in [place], she lives in [place] with , she is unemployed, on SSI, her highest level of education is 10th grade. Patient's Strengths (min. 2) Verbal communication Physical Exam Vital Signs Vital Signs Date Time Temp Pulse Resp B/P (MAP) Pulse Ox O2 Delivery O2 Flow Rate FiO2 06/25/17 08:00 98.5 78 21 164/72 (102) 97 06/24/17 13:55 Nasal Cannula 2 06/23/17 15:32 21 I/O 06/25/17 06/25/17 06/26/17 08:00 16:00 00:00 Intake Total 200 ml Output Total 2400 ml Balance -2200 ml Lab Results Test 06/25/17 04:00 White Blood Count 11.0 TH/MM3 Red Blood Count 2.26 MIL/MM3 Hemoglobin 7.0 GM/DL Hematocrit 21.2 % Mean Corpuscular Volume 93.8 FL Mean Corpuscular Hemoglobin 31.0 PG Mean Corpuscular Hemoglobin Concent 33.0 % Red Cell Distribution Width 15.4 % Platelet Count 370 TH/MM3 Mean Platelet Volume 9.4 FL Neutrophils (%) (Auto) 71.2 % Lymphocytes (%) (Auto) 14.3 % Monocytes (%) (Auto) 6.2 % Eosinophils (%) (Auto) 7.4 % Basophils (%) (Auto) 0.9 % Neutrophils # (Auto) 7.8 TH/MM3 Lymphocytes # (Auto) 1.6 TH/MM3 Monocytes # (Auto) 0.7 TH/MM3 Eosinophils # (Auto) 0.8 TH/MM3 Basophils # (Auto) 0.1 TH/MM3 CBC Comment DIFF FINAL Differential Comment Blood Urea Nitrogen 15 MG/DL Creatinine 1.62 MG/DL Random Glucose 88 MG/DL Calcium Level 7.5 MG/DL Phosphorus Level 3.7 MG/DL Magnesium Level 1.3 MG/DL Sodium Level 140 MEQ/L Potassium Level 5.2 MEQ/L Chloride Level 109 MEQ/L Carbon Dioxide Level 25.3 MEQ/L Anion Gap 6 MEQ/L Estimat Glomerular Filtration Rate 34 ML/MIN Date/Time Source Procedure Growth Status 06/23/17 06:50 Blood Peripheral Aerobic Blood Culture - Preliminary NO GROWTH IN 2 DAYS Resulted 06/23/17 06:50 Blood Peripheral Anaerobic Blood Culture - Preliminary NO GROWTH IN 2 DAYS Resulted 06/23/17 05:32 Nasal Aspirate Influenza Types A,B Antigen (PEDRO) - Final NEGATIVE FOR FLU A AND B ANTIGEN.... Complete 06/22/17 22:25 Urine Random Urine Urine Culture - Final 10-50,000 CFU/ML MIXED GRAM POSITIVE ... Complete Mental Status Examination Appearance: Appropriate Consciousness: Alert Orientation: x4 Motor Activity: Normal gait Speech: Unremarkable Language: Adequate Fund of Knowledge: Adequate Attention and Concentration: Adequate Memory: Unremarkable Mood: Appropriate, Oppositional Affect: Irritable Thought Process & Associations: Intact Thought Content: Appropriate Hallucination Type: None Delusion Type: None Suicidal Ideation: No Suicidal Plan: No Suicidal Intention: No Homicidal Ideation: No Homicidal Plan: No Homicidal Intention: No Insight: Adequate Judgment: Adequate Assessment & Plan Problem List: (1) Bipolar disorder ICD Codes: F31.9 - Bipolar disorder, unspecified Assessment & Plan: On psychiatric evaluation today the patient is irritable, oppositional, minimizing recent overdose stating that she did not want to . Patient reports that her mood has been stable in her current psychotropic regimen: Seroquel 200 mg at bedtime, Xanax 2 mg 4 times per day, Tegretol 200 mg. This medication allegedly has been prescribed by PCP. Even though the patient is minimizing symptomatology of depression and her recent overdose, since the patient has multiple ER visits/hospitalizations in the last months due to "accidental overdoses", I do not think that the patient is in an appropriate psychotropic regimen, she has been definitely misusing her medication and she is in an increased risk of committing suicide if an appropriate intervention is not done. Once patient is medically appropriate, please transfer to psychiatry for safety, stabilization and revision of psychotropic regimen. Collateral information from her is still pending. Bansal act to work is placed in her paper chart. Psychoeducation and brief supportive psychotherapy provided. Continue Seroquel 200 mg at bedtime. Hold Tegretol and Xanax. Order Ativan 1 mg 3 times a day for anxiety and to prevent withdrawal, but the plan would be to taper down benzodiazepines until outpatient prescriber is reached reasons for benzodiazepines are clarify. Assessment & Plan Estimated LOS: Efrain Dean MD Jun 25, 2017 11:46
--- NOTE | 2017-06-25 15:46 | HHI.NPPN ---
Subjective History of Present Illness Counseled for apparent acute renal insufficiency however the patient was just recently hospitalized at [facility] where she indicated that she saw her a renal specialist on one occasion during that admission but she subsequently left the hospital against medical advise. Patient is refusing to sign for release of medical records from that institution. I indicated to her that she may be impairing her medical care by failing to allow us to review information regarding her medical history and strongly advised that she change her mind. She has a history of substance abuse and was apparently found at home unresponsive and received CPR. Creatinine level at that time of presentation 2.5. CK level 75. CT scan performed during this presentation indicated a severe right hydronephrosis. Urological consultation pending. Patient has taken some ibuprofen prior to this presentation but not regularly by history. Interval History s/p R nephrostomy tube placement 06/24 with significant output from both PCNT and indwelling catheter. No complaints today Objective Data Data 06/25/17 06/26/17 19:00 07:00 Intake Total 170 ml Output Total 650 ml Balance -480 ml Intake Oral 120 ml IV Total 50 ml Drainage Total 650 ml # Bowel Movements 1 Vital Signs Date Time Temp Pulse Resp B/P (MAP) Pulse Ox O2 Delivery O2 Flow Rate FiO2 06/25/17 15:15 20 06/25/17 15:14 20 06/25/17 14:00 78 06/25/17 12:00 80 06/25/17 12:00 98.8 80 10 160/74 (102) 98 06/25/17 10:00 92 06/25/17 08:00 98.5 78 21 164/72 (102) 97 06/25/17 08:00 76 06/25/17 06:00 82 06/25/17 04:00 98.0 78 15 155/70 (98) 98 06/25/17 04:00 78 06/25/17 02:00 77 06/25/17 00:00 98.5 82 13 153/72 (99) 94 06/25/17 00:00 82 06/24/17 22:00 81 06/24/17 20:00 98.8 88 26 150/67 (94) 96 06/24/17 20:00 88 06/24/17 18:00 89 06/24/17 16:00 84 06/24/17 16:00 98.7 84 14 186/91 (122) 93 -: 06/25/17 0400 06/25/17 0400 Imaging Last Impressions Drainage Catheter Insertion 06/24/17 0000 Signed Impressions: Service Date/Time: Saturday, June 24, 2017 11:39 - CONCLUSION: Uncomplicated nephroureteral stent placement as above. Gaurav Parks MD Chest X-Ray 06/23/17 0600 Signed Impressions: Service Date/Time: Friday, June 23, 2017 06:01 - CONCLUSION: New bilateral perihilar opacities most characteristic of early pulmonary edema. This may be cardiogenic or noncardiogenic in origin. Surendra Wright MD Renal Ultrasound 06/23/17 0000 Signed Impressions: Service Date/Time: Friday, June 23, 2017 09:11 - CONCLUSION: 1. Bilateral pelvocaliectasis, right greater than left. 2. No stones. Edgar Vieira MD Chest CT 06/23/17 0000 Signed Impressions: Service Date/Time: Friday, June 23, 2017 09:03 - CONCLUSION: Nonspecific but severe bilateral air space consolidation involving all lobes but most prominent in the lower lobes bilaterally. Infectious process could have this appearance including atypical infections. Also, inflammatory processes should be considered in differential diagnosis. Suggest followup imaging to confirm resolution. Bill Gaxiola MD Abdomen/Pelvis CT 06/23/17 0000 Signed Impressions: Service Date/Time: Friday, June 23, 2017 09:03 - CONCLUSION: 1. Severe right hydronephrosis and hydroureter from uncertain etiology. No obstructing stone is present. No definite mass is seen on this noncontrast examination. However, cannot exclude a distal right ureteral lesion on this examination. 2. There is trace free fluid in the abdomen and pelvis. 3. There are multiple small retroperitoneal lymph nodes in the abdomen. However, these are technically not enlarged by size criteria. Suggest attention to these on followup imaging. Bill Gaxiola MD Medication Review Current Medications Medications (Trade) Dose Ordered Sig/Doris Route Start Time Stop Time Status Last Admin (NS Flush) 2 ml UNSCH PRN IV FLUSH 06/22/17 23:30 (NS Flush) 2 ml BID IV FLUSH 06/23/17 09:00 06/25/17 08:12 (Zofran Inj) 4 mg Q6H PRN IV PUSH 06/22/17 23:30 06/24/17 20:25 (Albuterol Neb) 2.5 mg Q2HR NEB PRN INH 06/22/17 23:30 (Heparin Inj) 5,000 units Q12HR SQ 06/23/17 09:00 06/25/17 08:04 Miscellaneous Information 1 Q361D XX 06/22/17 23:30 (Chlorhexidine 2% Cloth) 3 pack Taper DAILY@04 TOP 06/23/17 04:00 06/19/18 03:59 06/24/17 04:00 (Chlorhexidine 2% Cloth) 3 pack UNSCH PRN TOP 06/22/17 23:30 (Tess-Colace) 1 tab BID PO 06/23/17 09:00 06/23/17 19:32 (Milk Of Magnesia Liq) 30 ml Q12H PRN PO 06/22/17 23:30 (Senokot) 17.2 mg Q12H PRN PO 06/22/17 23:30 (Dulcolax Supp) 10 mg DAILY PRN RECTAL 06/22/17 23:30 (Lactulose Liq) 30 ml DAILY PRN PO 06/22/17 23:30 Ceftriaxone Sodium 1000 mg/ Sodium Chloride 100 ml @ 200 mls/hr Q24H IV 06/23/17 23:00 06/24/17 23:14 (TEGretol) 200 mg BID PO 06/23/17 09:00 06/25/17 08:04 (D50w (Vial) Inj) 50 ml UNSCH PRN IV PUSH 06/22/17 23:30 06/24/17 05:07 (Glucagon Inj) 1 mg UNSCH PRN OTHER 06/22/17 23:30 (NovoLOG SUPPLEMENTAL SCALE) 1 Q4HR SQ 06/23/17 00:00 06/25/17 12:20 (Narcan Inj) 0.4 mg Q2M PRN IV PUSH 06/23/17 00:00 (Tylenol) 650 mg Q4H PRN PO 06/23/17 05:00 06/23/17 05:11 Dextrose/Sodium Chloride 1,000 ml @ 75 mls/hr [id number] IV 06/23/17 08:15 06/25/17 08:00 Levofloxacin/ Dextrose 50 ml @ 50 mls/hr Q24H IV 06/24/17 09:00 06/25/17 08:05 (Pepcid Inj) 10 mg Q12HR IV PUSH 06/23/17 21:00 06/25/17 08:05 (Dilaudid Pf Inj) 1 mg Q4H PRN IV PUSH 06/23/17 14:00 06/25/17 12:19 Acetaminophen 100 ml @ 400 mls/hr Q6H IV 06/24/17 18:00 06/25/17 17:59 06/25/17 06:20 ([place] 10-325 Mg) 1 tab Q6H PRN PO 06/24/17 17:45 06/25/17 11:40 (SEROquel) 200 mg DAILY PO 06/25/17 09:00 (Requip) 2 mg HS PO 06/25/17 21:00 (Neurontin) 600 mg BID PO 06/26/17 09:00 Physical Exam General Appearance: No Acute Distress, Comfortable Throat Throat Exam: Oral Mucosa Chemult & Moist Neck Neck Exam: Neck Supple, Trachea Midline Pulmonary Resp Exam: Clear Bilaterally, Breath Sounds Equal Cardiology CV Exam: Regular, Normal Sinus Rhythm Gastrointestinal/Abdomen GI Exam: Soft, Non-Tender Genitourinary Exam: Clear Urine Integumentary Skin Exam: Clear, Warm Extremeties Extremities Exam: No Edema Neurologic Neuro Exam: Alert, Awake Psychiatric Psych Exam: Appropriate Responses Assessment/Plan Problem List: (1) Acute renal failure (ARF) ICD Codes: N17.9 - Acute kidney failure, unspecified Plan: Most likely secondary to obstructive uropathy with possible superimposed UTI. Renal functions improving since admission and has brisk UOP. We will continue to follow in the periphery. Please call with any questions. (2) Obstructive uropathy ICD Codes: N13.9 - Obstructive and reflux uropathy, unspecified Plan: Mgmt as per Dr. Holman (3) Opiate overdose ICD Codes: T40.601A - Poisoning by unspecified narcotics, accidental ( unintentional), initial encounter Status: Acute Plan: Unfortunately an ongoing problem. Defer to primary care physician regarding counseling patient to discontinue this behavior which may result in her premature . (4) Anemia ICD Codes: D64.9 - Anemia, unspecified Status: Acute Plan: Repeat CBC with Fe panel and FOBT Problem Qualifiers (1) Acute renal failure (ARF): Qualified Codes: N17.9 - Acute kidney failure, unspecified (2) Opiate overdose: (3) Anemia: Qualified Codes: D50.9 - Iron deficiency anemia, unspecified Lou Adamson Jun 25, 2017 15:46
[2017-06-25] MEDS ORDERED: MAGNESIUM SULFATE 1 GM PREMIX 100 ML IV ONE (16:00)
--- NOTE | 2017-06-25 16:51 | HHI.CCPN ---
Subjective Remarks/Hospital Course This is a 46-year-old female that presented to the ED via EMS after an overdose. According to EMS the patient's found the patient in the bathroom, unconscious, apparently not breathing. The initiated CPR and called 911. When the police arrived they did CPR for several minutes until EMS arrived. EMS states when they arrived the patient had agonal respirations. They were unable to place an IV, however, were able to place an IO in the right lower extremity. EMS states the patient's initial blood sugar was 215 and they administered Narcan 2 mg through the IO. EMS states the patient's GCS went from 3 to 14. Upon arrival the patient was a GCS of 15. The patient states she is prescribed morphine extended release 30 mg 4 times a day for chronic pain. The patient states that she took apart and snorted 1 30 milligram tablet at approximately 8 PM. 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 Flores. The patient did complain of mild chest pain and shortness of breath, upon admission. The patient's history is significant for multiple admissions previously for substance overdose (Morphine), last admission 03/2017. The patient also had previous medical history of admissions in the past of substance abuse with heroin and cocaine, patient has a history of PTSD and chronic pain syndrome secondary to a remote history of back surgery. Laboratory and imaging studies were performed in the ED, revealed normal lactic acid however a significant leukocytosis, and probable UTI, but also noted microscopic hematuria, and elevation in creatinine. The patient was placed on Rocephin. The patient's creatinine was noted to be elevated last evening. Upon discussion with the patient, the patient states she was admitted to [facility] on 06/12/17 and was admitted for urinary tract infection, patient signed out AMA on06/21/2017. Patient also reported seeing Dr. Flores regarding as related before tumors in the right lung and duodenum. Critical care medicine was consulted. Subjective: 06/24: Afebrile. Patient underwent nephrostomy tube placement. Now with complaints of postprocedural pain. Ofirmev added to medication regimen, and Lortab. 06/25: Afebrile. Nephrostomy tube draining. Patient's pain well controlled. Patient seen by psychiatry and Bansal acted. Patient tolerating diet, IV fluids discontinued. Objective Vital Signs Date Time Temp Pulse Resp B/P (MAP) Pulse Ox O2 Delivery O2 Flow Rate FiO2 06/25/17 15:15 20 06/25/17 14:00 78 06/25/17 12:00 98.8 160/74 (102) 98 06/24/17 13:55 Nasal Cannula 2 06/23/17 15:32 21 Intake and Output 06/25/17 06/25/17 06/26/17 08:00 16:00 00:00 Intake Total 200 ml 170 ml Output Total 2400 ml 1900 ml Balance -2200 ml -1730 ml Result Diagram: 06/25/17 0400 06/25/17 0400 Other Results Microbiology Date/Time Source Procedure Growth Status 06/23/17 05:32 Nasal Aspirate Influenza Types A,B Antigen (PEDRO) - Final NEGATIVE FOR FLU A AND B ANTIGEN.... Complete 06/22/17 22:25 Urine Random Urine Urine Culture - Final 10-50,000 CFU/ML MIXED GRAM POSITIVE ... Complete Imaging Last 24 hours Impressions Chest X-Ray 06/23/17 0600 Signed Impressions: Service Date/Time: Friday, June 23, 2017 06:01 - CONCLUSION: New bilateral perihilar opacities most characteristic of early pulmonary edema. This may be cardiogenic or noncardiogenic in origin. Surendra Wright MD Chest X-Ray [id number]/22/[id number] Signed Impressions: Service Date/Time: Thursday, June 22, 2017 22:24 - CONCLUSION: No evidence of acute cardiopulmonary disease. Bill Ruvalcaba MD Objective Remarks GENERAL: This is a well-developed well-nourished female, sitting up in bed in no acute distress SKIN: Warm and dry. Well-healed skin grafts noted on forearm HEAD: Atraumatic. Normocephalic. EYES: Pupils equal and round. No scleral icterus. No injection or drainage. ENT: No nasal bleeding or discharge. Mucous membranes pink and moist. NECK: Trachea midline. No JVD. CARDIOVASCULAR: Normal rate, regular rhythm. RESPIRATORY: No accessory muscle use. Clear to auscultation. Breath sounds equal bilaterally. O2 saturation 96 % on room air GASTROINTESTINAL: Abdomen soft, non-tender, nondistended. No guarding. MUSCULOSKELETAL: Extremities without clubbing, cyanosis, or edema. No obvious deformities. NEUROLOGICAL: Awake and alert. RASS 0. No gross focal/sensory deficits. Follows commands in all 4 extremities. Procedures 06/24 nephrostomy tube placement Urinary Catheter: Yes Muhammad insert reason: Obstruction/Retention Date of Insertion: Jun 23, 2017 A/P Assessment and Plan Assessment Opiate overdose Opiate dependency Acute renal failure Hematuria Leukocytosis Bandemia Sepsis Chronic pain syndrome PTSD Possible aspiration Diabetes mellitus Hypoglycemia-resolved Severe Hydronephrosis (right) Obstructive uropathy Bipolar Depression PLAN Plan by systems: Neurologic: Avoid sedative type medications Neurochecks per ICU protocol Monitor for signs of opiate withdrawal Tylenol 650 every 4 hours when necessary for temperature greater than 100.4 Dilaudid 1 mg every 4 hours for breakthrough pain Ofirmev 1 g every 6 hours discontinued Lortab 1 tab every 6 hours when necessary for pain scale 3-7 Psychiatry following- Dr. Desir- pt Rolf Zamora Respiratory: Maintain O2 sat greater than 92% O2 1-4 L/m nasal cannula, currently O2 saturation 96 % on room air Incentive spirometry every 4 hours while awake Duo nebs every 4 hours when necessary for wheezing Chest x-ray 06/22-no active disease process, now 06/23-new hazy B/L pulm infiltrates( pulmonary edema versus aspiration) Cardiovascular: Maintain MAP > 65 mmHg Telemetry-sinus rhythm Renal: Obtain urine sodium, creatinine, urine eosinophils CT abdomen and pelvis moderate to severe right hydronephrosis- Renal ultrasound-hydronephrosis right 06/24 S/P nephrostomy tube placement- must be maintained post discharge Maintain Muhammad -- Strict I/Os Nephrology seen by Dr. Ayala Urology Dr. Holman FEN/GI Begin heart healthy diet Monitor BMP Creatinine improving 2.5-> 1.6 today Heme/ID: Monitor CBC- Hgb 7.0 Patient previously seen by Dr. Flores's office obtain medical records from patient's hematology oncologist Currently on Rocephin 1 GM q 24hrs, Levaquin (day 2) Follow-up blood urine cultures Influenza negative Endocrine: Glucose monitoring per ICU protocol, low dose regimen -- SSI Prophylaxis: GI Prophylaxis Famotidine in the setting of AK I DVT Prophylaxis -- SCDs Heparin 500 SQ BID Lines: Peripheral IVs providing adequate access. Central line if indicated Dispo: Level 2 Plan transfer to [facility] in a.m.. Plan transfer to psychiatric floor. Physician Mi Inman MD Jun 25, 2017 16:50
[2017-06-25 17:45] LABS: MAGNESIUM 1.3 MG/DL (1.5-2.5); TRANSFERRIN IRON PROFILE 101 MG/DL (200-360)
[2017-06-25 17:47] LABS: FERRITIN 331 NG/ML (8-252)
[2017-06-25] MEDS: QUEtiapine FUMARATE 200 MG TAB PO SCH (21:42)
[2017-06-25] MEDS: cefTRIAXone INJ 1,000 MG in SODIUM CHLORIDE 0.9% INJ 100 ML IV SCH (21:44)
[2017-06-25] MEDS: ONDANSETRON HCL 4 MG/2 ML VIAL IV PUSH PRN (21:59)
[2017-06-26] VITALS (12 sets, daily range): BP systolic 153–188; BP diastolic 80–96; PULSE 80–91; RESP 9–22; TEMP 98.5–98.8; O2SAT 94–97
[2017-06-26] MEDS: HYDROmorphone HCL PF 1 MG/ML VIAL IV PUSH PRN ×4 (03:07→21:02)
[2017-06-26] MEDS: CHLORHEXIDINE GLUCONATE 2 % 1 PACK (2 CLOTHS) TOP SCH (04:00)
[2017-06-26] MEDS: INSULIN ASPART SUPPLEMENTAL SCALE SQ SCH ×6 (04:00→20:00)
[2017-06-26] MEDS: ACETAMINOPHEN/HYDROcodone 325 MG/10 MG TAB PO PRN ×3 (04:21→18:26)
[2017-06-26 07:09] LABS: HEMATOCRIT 24.5 % (35.0-46.0); MEAN CELL VOLUME 94.4 FL (80.0-100.0); MEAN CORPUSCULAR HEMOGLOBIN 30.3 PG (27.0-34.0); MEAN CORPUSCULAR HGB CONC 32.1 % (32.0-36.0); PLATELET COUNT 442 TH/MM3 (150-450); RED CELL DISTRIBUTION WIDTH 15.3 % (11.6-17.2); REVIEW FLAG FINAL; WHITE BLOOD COUNT 11.1 TH/MM3 (4.0-11.0)
[2017-06-26 07:11] LABS: BICARBONATE 24.3 MEQ/L (21.0-32.0); POTASSIUM 4.6 MEQ/L (3.5-5.1)
[2017-06-26] MEDS: carBAMazepine 200 MG TAB PO SCH ×2 (08:31→20:57)
[2017-06-26] MEDS: GABAPENTIN 300 MG CAP PO SCH ×2 (08:31→20:57)
[2017-06-26] MEDS: HEPARIN SODIUM - SQ 10,000 UNITS/ML VIAL SQ SCH ×2 (08:31→20:59)
[2017-06-26] MEDS: DOCUSATE SODIUM 50 MG/SENNA 8.6 MG TAB PO SCH ×2 (08:31→20:57)
[2017-06-26] MEDS: FAMOTIDINE 20 MG/2 ML VIAL IV PUSH SCH ×2 (08:32→20:57)
[2017-06-26] MEDS: LEVOFLOXACIN/DEXTROSE 250 MG/50 ML IV SCH (08:32)
[2017-06-26] MEDS: SODIUM CHLORIDE 0.9% FLUSH 10 ML FLUSH IV FLUSH SCH ×2 (08:32→20:58)
--- NOTE | 2017-06-26 15:00 | HHI.CCPN ---
Subjective Remarks/Hospital Course This is a 46-year-old female that presented to the ED via EMS after an overdose. According to EMS the patient's found the patient in the bathroom, unconscious, apparently not breathing. The initiated CPR and called 911. When the police arrived they did CPR for several minutes until EMS arrived. EMS states when they arrived the patient had agonal respirations. They were unable to place an IV, however, were able to place an IO in the right lower extremity. EMS states the patient's initial blood sugar was 215 and they administered Narcan 2 mg through the IO. EMS states the patient's GCS went from 3 to 14. Upon arrival the patient was a GCS of 15. The patient states she is prescribed morphine extended release 30 mg 4 times a day for chronic pain. The patient states that she took apart and snorted 1 30 milligram tablet at approximately 8 PM. 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 Flores. The patient did complain of mild chest pain and shortness of breath, upon admission. The patient's history is significant for multiple admissions previously for substance overdose (Morphine), last admission 03/2017. The patient also had previous medical history of admissions in the past of substance abuse with heroin and cocaine, patient has a history of PTSD and chronic pain syndrome secondary to a remote history of back surgery. Laboratory and imaging studies were performed in the ED, revealed normal lactic acid however a significant leukocytosis, and probable UTI, but also noted microscopic hematuria, and elevation in creatinine. The patient was placed on Rocephin. The patient's creatinine was noted to be elevated last evening. Upon discussion with the patient, the patient states she was admitted to [facility] on 06/12/17 and was admitted for urinary tract infection, patient signed out AMA on06/21/2017. Patient also reported seeing Dr. Flores regarding as related before tumors in the right lung and duodenum. Critical care medicine was consulted. Subjective: 06/24: Afebrile. Patient underwent nephrostomy tube placement. Now with complaints of postprocedural pain. Ofirmev added to medication regimen, and Lortab. 06/25: Afebrile. Nephrostomy tube draining. Patient's pain well controlled. Patient seen by psychiatry and Bansal acted. Patient tolerating diet, IV fluids discontinued. 06/26: No acute events overnight. Patient up out of bed to bedside commode without assistance. Pain well controlled. nephrostomy tube draining , no heme noted. Objective Vital Signs Date Time Temp Pulse Resp B/P (MAP) Pulse Ox O2 Delivery O2 Flow Rate FiO2 06/26/17 13:00 85 06/26/17 11:00 16 97 06/26/17 10:00 182/80 (114) 06/26/17 08:00 98.6 06/24/17 13:55 Nasal Cannula 2 06/23/17 15:32 21 Intake and Output 06/26/17 06/26/17 06/27/17 08:00 16:00 00:00 Output Total 270 ml Balance -270 ml Result Diagram: 06/26/17 0630 06/26/17 0630 Imaging Last 24 hours Impressions Chest X-Ray 06/23/17 0600 Signed Impressions: Service Date/Time: Friday, June 23, 2017 06:01 - CONCLUSION: New bilateral perihilar opacities most characteristic of early pulmonary edema. This may be cardiogenic or noncardiogenic in origin. Surendra Wright MD Chest X-Ray 06/22/172136 Signed Impressions: Service Date/Time: Thursday, June 22, 2017 22:24 - CONCLUSION: No evidence of acute cardiopulmonary disease. Bill Ruvalcaba MD Objective Remarks GENERAL: This is a well-developed well-nourished female, sitting up in bed in no acute distress SKIN: Warm and dry. Well-healed skin grafts noted on forearm HEAD: Atraumatic. Normocephalic. EYES: Pupils equal and round. No scleral icterus. No injection or drainage. ENT: No nasal bleeding or discharge. Mucous membranes pink and moist. NECK: Trachea midline. No JVD. CARDIOVASCULAR: Normal rate, regular rhythm. RESPIRATORY: No accessory muscle use. Clear to auscultation. Breath sounds equal bilaterally. O2 saturation 96 % on room air GASTROINTESTINAL: Abdomen soft, non-tender, nondistended. No guarding. MUSCULOSKELETAL: Extremities without clubbing, cyanosis, or edema. No obvious deformities. NEUROLOGICAL: Awake and alert. RASS 0. No gross focal/sensory deficits. Follows commands in all 4 extremities. Procedures 12/5 nephrostomy tube placement Date of Insertion: Jun 23, 2017 A/P Assessment and Plan Assessment Opiate overdose Opiate dependency Acute renal failure Hematuria Leukocytosis Bandemia Sepsis Chronic pain syndrome PTSD Possible aspiration Diabetes mellitus Hypoglycemia-resolved Severe Hydronephrosis (right) Obstructive uropathy-resolved Bipolar Depression PLAN Plan by systems: Neurologic: Avoid sedative type medications Neurochecks per ICU protocol Monitor for signs of opiate withdrawal Tylenol 650 every 4 hours when necessary for temperature greater than 100.4 Dilaudid 1 mg every 4 hours for breakthrough pain Lortab 1 tab every 6 hours when necessary for pain scale 3-7 Psychiatry following- Dr. Desir- pt Rolf Acted Respiratory: Maintain O2 sat greater than 92% O2 1-4 L/m nasal cannula, currently O2 saturation 96 % on room air Incentive spirometry every 4 hours while awake Duo nebs every 4 hours when necessary for wheezing Chest x-ray 06/22-no active disease process, now 06/23-new hazy B/L pulm infiltrates( pulmonary edema versus aspiration) Cardiovascular: Maintain MAP > 65 mmHg Telemetry-sinus rhythm Renal: Obtain urine sodium, creatinine, urine eosinophils CT abdomen and pelvis moderate to severe right hydronephrosis- Renal ultrasound-hydronephrosis right 06/24 S/P nephrostomy tube placement- must be maintained post discharge Maintain Muhammad -- Strict I/Os Nephrology seen by Dr. Ayala Urology Dr. Holman FEN/GI Begin heart healthy diet Monitor BMP Creatinine improving 2.5-> 1.6 today Heme/ID: Monitor CBC- Hgb 7.0 Patient previously seen by Dr. Flores's office obtain medical records from patient's hematology oncologist Currently on Rocephin 1 GM q 24hrs, Levaquin (day 3) 06/23 blood urine cultures- NGTD Influenza negative Endocrine: Glucose monitoring per ICU protocol, low dose regimen -- SSI Prophylaxis: GI Prophylaxis Famotidine in the setting of AK I DVT Prophylaxis -- SCDs Heparin 500 SQ BID Lines: Peripheral IVs providing adequate access. Central line if indicated Dispo: Level [address] [facility] in a.m. Plan transfer to med surg/ psychiatric floor. Physician Mi Inman MD Jun 26, 2017 15:00
[2017-06-26] MEDS: SODIUM CHLOR 0.9% 1000 ML INJ 1,000 ML IV SCH (16:58)
[2017-06-26] MEDS: QUEtiapine FUMARATE 200 MG TAB PO SCH (21:40)
[2017-06-26] MEDS: cefTRIAXone INJ 1,000 MG in SODIUM CHLORIDE 0.9% INJ 100 ML IV SCH (22:28)
[2017-06-27] VITALS: BP 123/67; PULSE 90; PULSE 97; RESP 20; TEMP 98.9; O2SAT 97
[2017-06-27] MEDS: ACETAMINOPHEN/HYDROcodone 325 MG/10 MG TAB PO PRN ×2 (00:20→06:27)
[2017-06-27] MEDS: CHLORHEXIDINE GLUCONATE 2 % 1 PACK (2 CLOTHS) TOP SCH (00:24)
[2017-06-27] MEDS: HYDROmorphone HCL PF 1 MG/ML VIAL IV PUSH PRN ×6 (01:33→23:08)
[2017-06-27 04:00] VITALS: BP 135/75; PULSE 80; PULSE 89; RESP 20; TEMP 99.2; O2SAT 98
[2017-06-27] MEDS: INSULIN ASPART SUPPLEMENTAL SCALE SQ SCH ×8 (04:00→20:50)
[2017-06-27 08:00] VITALS: BP 162/81; PULSE 82; PULSE 93; RESP 18; TEMP 98.4; O2SAT 96
--- NOTE | 2017-06-27 08:07 | HHI.PR ---
Subjective Remarks awake and alert main complain now is chronic back pain states on chronic dilaudid- baseline independent with no assistive device known diabetic with good hypoglycemic awareness denies any nausea or vomiting Objective Vitals Vital Signs Date Time Temp Pulse Resp B/P (MAP) Pulse Ox O2 Delivery O2 Flow Rate FiO2 06/27/17 04:00 99.2 80 20 135/75 (95) 98 06/27/17 04:00 89 06/27/17 01:20 16 06/27/17 00:00 98.9 90 20 123/67 (85) 97 06/27/17 00:00 97 06/26/17 21:32 18 06/26/17 20:00 88 06/26/17 20:00 98.6 82 22 153/82 (105) 97 06/26/17 15:00 98.8 80 18 167/96 (119) 94 06/26/17 14:57 18 06/26/17 13:00 85 06/26/17 12:00 80 06/26/17 11:00 81 06/26/17 11:00 81 16 97 06/26/17 10:00 91 06/26/17 10:00 91 13 182/80 (114) 96 06/26/17 09:00 88 06/26/17 09:00 88 19 95 06/26/17 08:00 98.6 87 9 182/81 (114) 96 06/26/17 08:00 87 I/O 06/26/17 06/26/17 06/26/17 06/27/17 06/27/17 06/27/17 07:00 15:00 23:00 07:00 15:00 23:00 Intake Total 100 ml 1534 ml Output Total 270 ml 1900 ml 2700 ml Balance -270 ml -1800 ml -1166 ml Intake Oral 720 ml IV Total 100 ml 814 ml Output Urine Total 1100 ml 1100 ml Drainage Total 270 ml 800 ml 1600 ml Result Diagram: 06/26/17 0630 06/26/17 1841 Imaging Last Impressions Drainage Catheter Insertion 06/24/17 0000 Signed Impressions: Service Date/Time: Saturday, June 24, 2017 11:39 - CONCLUSION: Uncomplicated nephroureteral stent placement as above. Gaurav Parks MD Chest X-Ray 06/23/17 0600 Signed Impressions: Service Date/Time: Friday, June 23, 2017 06:01 - CONCLUSION: New bilateral perihilar opacities most characteristic of early pulmonary edema. This may be cardiogenic or noncardiogenic in origin. Surendra Wright MD Renal Ultrasound 06/23/17 0000 Signed Impressions: Service Date/Time: Friday, June 23, 2017 09:11 - CONCLUSION: 1. Bilateral pelvocaliectasis, right greater than left. 2. No stones. Edgar Vieira MD Chest CT 06/23/17 0000 Signed Impressions: Service Date/Time: Friday, June 23, 2017 09:03 - CONCLUSION: Nonspecific but severe bilateral air space consolidation involving all lobes but most prominent in the lower lobes bilaterally. Infectious process could have this appearance including atypical infections. Also, inflammatory processes should be considered in differential diagnosis. Suggest followup imaging to confirm resolution. Bill Gaxiola MD Abdomen/Pelvis CT 06/23/17 0000 Signed Impressions: Service Date/Time: Friday, June 23, 2017 09:03 - CONCLUSION: 1. Severe right hydronephrosis and hydroureter from uncertain etiology. No obstructing stone is present. No definite mass is seen on this noncontrast examination. However, cannot exclude a distal right ureteral lesion on this examination. 2. There is trace free fluid in the abdomen and pelvis. 3. There are multiple small retroperitoneal lymph nodes in the abdomen. However, these are technically not enlarged by size criteria. Suggest attention to these on followup imaging. Bill Gaxiola MD Objective Remarks awake and alert, no acute distress anicteric lungs clear regular rhythm abdomen- soft, nontender, right nephrostomy tube in place- draiing grossly clear urine parnell catheter in place LE no edema neuro exam- non focal Procedures 06/24 nephrostomy tube placement Urinary Catheter: Yes Assessment to: Continue Parnell insert reason: Obstruction/Retention Date of Insertion: Jun 23, 2017 A/P Problem List: (1) Opiate dependence ICD Code: F11.20 - Opioid dependence, uncomplicated Status: Acute (2) Overdose of analgesic ICD Code: T39.91XA - Poisoning by unspecified nonopioid analgesic, antipyretic and antirheumatic, accidental (unintentional), initial encounter Status: Acute (3) Acute kidney injury ICD Code: N17.9 - Acute kidney failure, unspecified Status: Acute (4) Opiate overdose ICD Code: T40.601A - Poisoning by unspecified narcotics, accidental ( unintentional), initial encounter Status: Acute (5) Hypoxia ICD Code: R09.02 - Hypoxemia Status: Acute (6) Anemia ICD Code: D64.9 - Anemia, unspecified Status: Acute (7) Bandemia ICD Code: D72.825 - Bandemia (8) Chronic pain disorder ICD Code: G89.4 - Chronic pain syndrome (9) Diabetes mellitus ICD Code: E11.9 - Type 2 diabetes mellitus without complications (10) Hematuria ICD Code: R31.9 - Hematuria, unspecified (11) Leukocytosis, unspecified ICD Code: D72.829 - Elevated white blood cell count, unspecified (12) Acute renal failure (ARF) ICD Code: N17.9 - Acute kidney failure, unspecified Assessment and Plan 46 years old female S/P OD on opiates - history of PSA + history of OD she admitted to takingher 's Morphine tabs and crushing them and snorting them JARVIS with underlying obstructive uropathy S/P right nephrostomy tube place Gross hematuria- resolved Urology ff- will likely go home with nephrostomy tube and work up as OP - anterograde pyelogram per last Uro notes Nephrology ff creatinine trending down- non oliguric BMP daily. continue NS Sepsis- secondary to Urologic condition Possible Aspiration continue on antibiotics- Ceftriaxone and Levaquin ff cultures DM type 2- indulin requiring BS- high- no ketosis IVF changed to NS ff BS, ff BMP as OP on Lantus- states she is on 30 am, 20 pm- + Humalog bid about 5 units start Lantus at a lower dose and closely monitor. continue sliding scale Chronic pain Opiate dependency discussed with her - dilaudid 0,5 mg q 4 prn History of thrombosis, - per RUE, ? IVC- on eliquis as op we will restart Eliquis 5 mg po bid. 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 Flores will try to get records d/w Dr. Dean- history of substance abuse and abusing opiates- several admissions outside for opiate OD will limit narcotics history of OD x 2 in the recent past and is a danger to self Bansal acted Up and ambulate PT consult Problem Qualifiers (1) Overdose of analgesic: (2) Opiate overdose: (3) Anemia: Qualified Codes: D50.9 - Iron deficiency anemia, unspecified (4) Diabetes mellitus: (5) Hematuria: Qualified Codes: R31.29 - Other microscopic hematuria (6) Acute renal failure (ARF): Qualified Codes: N17.9 - Acute kidney failure, unspecified Mali Wallace MD Jun 27, 2017 08:07
[2017-06-27] MEDS ORDERED: INSULIN HUMAN REGULAR 1,000 UNITS/10 ML VIAL IV PUSH ONE ×4 (08:15→15:15)
[2017-06-27] MEDS: ONDANSETRON HCL 4 MG/2 ML VIAL IV PUSH PRN ×3 (08:41→23:39)
[2017-06-27] MEDS: carBAMazepine 200 MG TAB PO SCH ×2 (08:42→20:45)
[2017-06-27] MEDS: FAMOTIDINE 20 MG/2 ML VIAL IV PUSH SCH (08:42)
[2017-06-27] MEDS: LEVOFLOXACIN/DEXTROSE 250 MG/50 ML IV SCH (08:42)
[2017-06-27] MEDS: DOCUSATE SODIUM 50 MG/SENNA 8.6 MG TAB PO SCH ×2 (08:42→20:45)
[2017-06-27] MEDS: GABAPENTIN 300 MG CAP PO SCH ×2 (08:42→20:44)
[2017-06-27] MEDS: SODIUM CHLORIDE 0.9% FLUSH 10 ML FLUSH IV FLUSH SCH ×2 (08:43→21:00)
[2017-06-27] MEDS: SODIUM CHLOR 0.9% 1000 ML INJ 1,000 ML IV SCH ×2 (08:46→23:08)
[2017-06-27] MEDS: INSULIN DETEMIR 100 UNITS/ML VIAL SQ SCH ×2 (10:05→20:50)
--- NOTE | 2017-06-27 10:16 | HHI.PYPN ---
Subjective Remarks Patient was seen today for psychiatric reevaluation, patient is calm, cooperative, requesting to be discharged. The patient says that she has never tried to commit suicide before, she denies abusing medications. She says that accidentally took just 2 pills of pain medication from his . She refuses to agree to fax medical records from [facility] from her last hospitalization 2 weeks ago. She denies suicidal and homicidal ideation, she denies visual and auditory hallucinations. She is oriented 3, no fluctuation of consciousness, no attention deficit. There is no report of subjective or objective withdrawal, she has been requesting to be prescribed with benzodiazepines for anxiety. Review of Systems Except as stated in HPI: all other systems reviewed are Neg Mental Status Examination Appearance: Appropriate Consciousness: Alert Orientation: x4 Motor Activity: Normal gait Speech: Unremarkable Language: Adequate Fund of Knowledge: Adequate Attention and Concentration: Adequate Memory: Unremarkable Mood: Appropriate, Oppositional Affect: Irritable Thought Process & Associations: Intact Thought Content: Appropriate Hallucination Type: None Delusion Type: None Suicidal Ideation: No Suicidal Plan: No Suicidal Intention: No Homicidal Ideation: No Homicidal Plan: No Homicidal Intention: No Insight: Poor Judgment: Poor Results Labs Test 06/26/17 18:41 Random Glucose 524 MG/DL Date/Time Source Procedure Growth Status 06/23/17 06:50 Blood Peripheral Aerobic Blood Culture - Preliminary NO GROWTH IN 3 DAYS Resulted 06/23/17 06:50 Blood Peripheral Anaerobic Blood Culture - Preliminary NO GROWTH IN 3 DAYS Resulted 06/23/17 05:32 Nasal Aspirate Influenza Types A,B Antigen (PEDRO) - Final NEGATIVE FOR FLU A AND B ANTIGEN.... Complete 06/22/17 22:25 Urine Random Urine Urine Culture - Final 10-50,000 CFU/ML MIXED GRAM POSITIVE ... Complete Vitals/IOs Vital Signs Date Time Temp Pulse Resp B/P (MAP) Pulse Ox O2 Delivery O2 Flow Rate FiO2 06/27/17 08:00 98.4 82 18 162/81 (108) 96 06/24/17 13:55 Nasal Cannula 2 06/23/17 15:32 21 Intake and Output 06/27/17 06/27/17 06/28/17 08:00 16:00 00:00 Intake Total 1534 ml Output Total 2700 ml Balance -1166 ml Assessment & Plan Problem List: (1) Bipolar disorder ICD Codes: F31.9 - Bipolar disorder, unspecified Assessment & Plan: Patient continues to be insightless and in a pervasive denial of her medication abuse. She is in a precontemplation stage and even unable to express understanding of the role of opiates and benzodiazepines abuse in her current medical situation. The patient has been hospitalized multiple times in the last months due to medication misuse and "accidental overdoses" she represents an elevated risk to self and needs psychiatric admission for safety and to guarantee a safe discharge. Continue current psychotropics. Try to avoid benzodiazepines and narcotics as much as possible. Assessment & Plan Estimated LOS: days Justification for Cont. Inpt. Patient needs psychiatric hospitalization for stabilization. Efrain Dean MD Jun 27, 2017 10:16
[2017-06-27 12:00] VITALS: BP 160/86; PULSE 90; PULSE 95; RESP 18; TEMP 98.2; O2SAT 98
[2017-06-27 13:45] LABS: BICARBONATE 23.1 MEQ/L (21.0-32.0); POTASSIUM 4.9 MEQ/L (3.5-5.1)
[2017-06-27 16:00] VITALS: BP 136/86; PULSE 87; PULSE 91; RESP 18; TEMP 98.7; O2SAT 96
[2017-06-27] MEDS ORDERED: PILL SPLITTER OTHER PRN (16:00)
[2017-06-27 20:00] VITALS: BP 158/89; PULSE 92; RESP 16; TEMP 98.8; O2SAT 95
[2017-06-27] MEDS: APIXABAN 5 MG TABLET PO SCH (20:45)
[2017-06-27] MEDS: FAMOTIDINE 20 MG TAB PO SCH (20:45)
[2017-06-27] MEDS ORDERED: FAMOTIDINE 20 MG TAB PO SCH (21:00)
[2017-06-27] MEDS: cefTRIAXone INJ 1,000 MG in SODIUM CHLORIDE 0.9% INJ 100 ML IV SCH (23:08)
[2017-06-28] VITALS: BP 140/73; PULSE 92; RESP 16; TEMP 97.9; O2SAT 97
[2017-06-28] MEDS: CHLORHEXIDINE GLUCONATE 2 % 1 PACK (2 CLOTHS) TOP SCH (03:28)
[2017-06-28 04:00] VITALS: BP 102/55; PULSE 71; RESP 16; TEMP 97.9; O2SAT 98
[2017-06-28] MEDS: INSULIN ASPART SUPPLEMENTAL SCALE SQ SCH ×5 (04:00→11:30)
[2017-06-28] MEDS: HYDROmorphone HCL PF 1 MG/ML VIAL IV PUSH PRN ×2 (04:44→08:50)
[2017-06-28 07:08] LABS: BICARBONATE 27.9 MEQ/L (21.0-32.0); POTASSIUM 4.2 MEQ/L (3.5-5.1)
[2017-06-28 08:00] VITALS: BP 140/76; PULSE 92; RESP 18; TEMP 98.2; O2SAT 98
[2017-06-28] MEDS: carBAMazepine 200 MG TAB PO SCH (08:47)
[2017-06-28] MEDS: GABAPENTIN 300 MG CAP PO SCH (08:47)
[2017-06-28] MEDS: DOCUSATE SODIUM 50 MG/SENNA 8.6 MG TAB PO SCH (08:49)
[2017-06-28] MEDS: FAMOTIDINE 20 MG TAB PO SCH (08:49)
[2017-06-28] MEDS: ONDANSETRON HCL 4 MG/2 ML VIAL IV PUSH PRN (08:49)
[2017-06-28] MEDS: INSULIN DETEMIR 100 UNITS/ML VIAL SQ SCH (08:50)
[2017-06-28] MEDS: LEVOFLOXACIN/DEXTROSE 250 MG/50 ML IV SCH (08:50)
[2017-06-28] MEDS: SODIUM CHLORIDE 0.9% FLUSH 10 ML FLUSH IV FLUSH SCH (08:51)
[2017-06-28] MEDS: APIXABAN 5 MG TABLET PO SCH (08:54)
[2017-06-28] MEDS: QUEtiapine FUMARATE 200 MG TAB PO SCH (08:54)
[2017-06-28] MEDS ORDERED: NALOXONE HCL 0.4 MG/ML AMP IV PUSH ONE (11:00)
--- NOTE | 2017-06-28 11:05 | HHI.PR ---
Subjective Remarks I walked into the room patient unresponsive cyanotic lips, very shallow breathing, tachycardic no response with deep sternal Objective Vitals Vital Signs Date Time Temp Pulse Resp B/P (MAP) Pulse Ox O2 Delivery O2 Flow Rate FiO2 06/28/17 08:00 92 06/28/17 04:00 97.9 71 16 102/55 (71) 98 06/28/17 00:00 97.9 92 16 140/73 (95) 97 06/27/17 20:00 98.8 92 16 158/89 (112) 95 06/27/17 16:00 98.7 87 18 136/86 (103) 96 06/27/17 16:00 91 06/27/17 12:00 98.2 95 18 160/86 (110) 98 06/27/17 12:00 90 I/O 06/27/17 06/27/17 06/27/17 06/28/17 06/28/17 06/28/17 07:00 15:00 23:00 07:00 15:00 23:00 Intake Total 1534 ml 720 ml 1100 ml Output Total 2700 ml 2870 ml 1700 ml Balance -1166 ml -2150 ml -600 ml Intake Oral 720 ml 720 ml IV Total 814 ml 1100 ml Output Urine Total 1100 ml 850 ml 1200 ml Drainage Total 1600 ml 2020 ml 500 ml Result Diagram: 06/26/17 0630 06/28/17 0606 Imaging Last Impressions Drainage Catheter Insertion 06/24/17 0000 Signed Impressions: Service Date/Time: Saturday, June 24, 2017 11:39 - CONCLUSION: Uncomplicated nephroureteral stent placement as above. Gaurav Parks MD Chest X-Ray 06/23/17 0600 Signed Impressions: Service Date/Time: Friday, June 23, 2017 06:01 - CONCLUSION: New bilateral perihilar opacities most characteristic of early pulmonary edema. This may be cardiogenic or noncardiogenic in origin. Surendra Wright MD Renal Ultrasound 06/23/17 0000 Signed Impressions: Service Date/Time: Friday, June 23, 2017 09:11 - CONCLUSION: 1. Bilateral pelvocaliectasis, right greater than left. 2. No stones. Edgar Vieira MD Chest CT 06/23/17 0000 Signed Impressions: Service Date/Time: Friday, June 23, 2017 09:03 - CONCLUSION: Nonspecific but severe bilateral air space consolidation involving all lobes but most prominent in the lower lobes bilaterally. Infectious process could have this appearance including atypical infections. Also, inflammatory processes should be considered in differential diagnosis. Suggest followup imaging to confirm resolution. Bill Gaxiola MD Abdomen/Pelvis CT 06/23/17 0000 Signed Impressions: Service Date/Time: Friday, June 23, 2017 09:03 - CONCLUSION: 1. Severe right hydronephrosis and hydroureter from uncertain etiology. No obstructing stone is present. No definite mass is seen on this noncontrast examination. However, cannot exclude a distal right ureteral lesion on this examination. 2. There is trace free fluid in the abdomen and pelvis. 3. There are multiple small retroperitoneal lymph nodes in the abdomen. However, these are technically not enlarged by size criteria. Suggest attention to these on followup imaging. Bill Gaxiola MD Objective Remarks unresponsive,shallow breathing anicteric, cyanotic lips, shallow breathing lungs clear abdomen- soft, nontender, right nephrostomy tube in place- draiing grossly clear urine parnell catheter in place LE no edema Procedures 06/24 nephrostomy tube placement Date of Insertion: Jun 23, 2017 A/P Problem List: (1) Opiate dependence ICD Code: F11.20 - Opioid dependence, uncomplicated Status: Acute (2) Overdose of analgesic ICD Code: T39.91XA - Poisoning by unspecified nonopioid analgesic, antipyretic and antirheumatic, accidental (unintentional), initial encounter Status: Acute (3) Acute kidney injury ICD Code: N17.9 - Acute kidney failure, unspecified Status: Acute (4) Opiate overdose ICD Code: T40.601A - Poisoning by unspecified narcotics, accidental ( unintentional), initial encounter Status: Acute (5) Hypoxia ICD Code: R09.02 - Hypoxemia Status: Acute (6) Anemia ICD Code: D64.9 - Anemia, unspecified Status: Acute (7) Bandemia ICD Code: D72.825 - Bandemia (8) Chronic pain disorder ICD Code: G89.4 - Chronic pain syndrome (9) Diabetes mellitus ICD Code: E11.9 - Type 2 diabetes mellitus without complications (10) Hematuria ICD Code: R31.9 - Hematuria, unspecified (11) Leukocytosis, unspecified ICD Code: D72.829 - Elevated white blood cell count, unspecified (12) Acute renal failure (ARF) ICD Code: N17.9 - Acute kidney failure, unspecified Assessment and Plan 46 years old female Acute change in MS- secondary to Dilaudid. - last dose was 8:50 am, last Benzo dose was from 06/25 spoke with staff nurse - last seen by them awake and alert interactive then when I walked in patient cyanotic, shallow breathing, unresponsive stat BS- 129 unable to get sats stat ABG ordered gave Narcan IV x 1 now- patient woke up immediately and became responsive- pink hue lips returned. denies taking meds from outside while in here DC Dilaudid, No narcotics get a stat tox screen- ? using benzos on her own S/P OD on opiates - history of PSA + history of ODs in the past she admitted to taking her 's Morphine tabs and crushing them and snorting them JARVIS with underlying obstructive uropathy S/P right nephrostomy tube place Gross hematuria- resolved Urology ff- will likely go home with nephrostomy tube and work up as OP - anterograde pyelogram per last Uro notes Nephrology ff creatinine trending down- non oliguric BMP daily. continue NS Sepsis- secondary to Urologic condition Possible Aspiration Leukocytosis- trended down continue on antibiotics- Ceftriaxone- started 06/22. On Levaquin - start 06/23. - change to po Levaquin cultures negative so far DM type 2- indulin requiring BS- high- no ketosis IVF changed to NS ff BS, ff BMP as OP on Lantus- states she is on 30 am, 20 pm- + Humalog bid about 5 units Lantus 15 units at a lower dose and closely monitor. continue sliding scale Chronic pain Opiate dependency discussed with her - DC Dilaudid altogether No narcotics History of thrombosis, - per RUE, ? IVC- on eliquis as op we will restart Eliquis 5 mg po bid. 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 Flores will try to get records 05/28 d/w Dr. Dean- history of substance abuse and abusing opiates- several admissions outside for opiate OD history of OD x 2 in the recent past and is a danger to self Bansal acted Up and ambulate PT consult Discharge to Med/Psychiatry bed now d/w - states this is how he walked into patient at home before that brought her in the hospital several times in the past he is exasperated and frustrated d/w that patient needs a closely supervised monitored environment Problem Qualifiers (1) Overdose of analgesic: (2) Opiate overdose: (3) Anemia: Qualified Codes: D50.9 - Iron deficiency anemia, unspecified (4) Diabetes mellitus: (5) Hematuria: Qualified Codes: R31.29 - Other microscopic hematuria (6) Acute renal failure (ARF): Qualified Codes: N17.9 - Acute kidney failure, unspecified Mali Wallace MD Jun 28, 2017 11:05
[2017-06-28 11:14] LABS: BLOOD GAS BASE EXCESS -2.4 mmol/L (-2-2); BLOOD GAS CARBOXYHEMOGLOBIN 1.1 % (0-4); BLOOD GAS HCO3 23 mmol/L (22-26); BLOOD GAS METHEMOGLOBIN 0.7 % (0-2); BLOOD GAS O2 HGB SATURATION 95 % (90-100); BLOOD GAS OXYGEN CONTENT 11.2 Vol % (12.0-20.0); BLOOD GAS PCO2 44 mmHg (38-42); BLOOD GAS PO2 97 mmHg (61-120); BLOOD GAS TOTAL HGB 8.3 G/DL (12.0-16.0); CRITICAL VALUE NO; DRAW SITE RT RADIAL; FIO2 21 %; NUMBER OF ARTERIAL PUNCTURES 1; STAT YES; TEMP CORR TO 98.6; ULNAR PULSE PRESENT
[2017-06-28 12:00] VITALS: BP 122/67; PULSE 110; PULSE 124; RESP 18; TEMP 98.2; O2SAT 96
[2017-06-28] MEDS ORDERED: LEVEMIR SQ (12:36)
[2017-06-28] MEDS ORDERED: NOVOLOGSS SQ (12:36)
[2017-06-28 13:35] LABS: HEMOGLOBIN A1a 3.1 %; HEMOGLOBIN F 2.4 %; HEMOGLOBIN LA1C 2.4 %
--- NOTE | 2017-06-28 20:42 | HHI.DS ---
Discharge Summary Admission Date Jun 22, 2017 at 23:30 Discharge Date: Jun 28, 2017 Admitting Diagnosis opiate overdose, hypoxia, chronic anemia, JARVIS (1) Opiate overdose ICD Code: T40.601A - Poisoning by unspecified narcotics, accidental ( unintentional), initial encounter Diagnosis: Principal Status: Acute (2) Opiate dependence ICD Code: F11.20 - Opioid dependence, uncomplicated Diagnosis: Principal Status: Acute (3) Acute kidney injury ICD Code: N17.9 - Acute kidney failure, unspecified Diagnosis: Secondary Status: Acute (4) Hypoxia ICD Code: R09.02 - Hypoxemia Diagnosis: Secondary Status: Acute (5) Anemia ICD Code: D64.9 - Anemia, unspecified Diagnosis: Secondary Status: Acute (6) Bandemia ICD Code: D72.825 - Bandemia Diagnosis: Secondary (7) Chronic pain disorder ICD Code: G89.4 - Chronic pain syndrome Diagnosis: Secondary (8) Diabetes mellitus ICD Code: E11.9 - Type 2 diabetes mellitus without complications Diagnosis: Secondary (9) Hematuria ICD Code: R31.9 - Hematuria, unspecified Diagnosis: Secondary (10) Leukocytosis, unspecified ICD Code: D72.829 - Elevated white blood cell count, unspecified Diagnosis: Principal Procedures 06/24 nephrostomy tube placement Brief History - From Admission This is a 46-year-old female that presented to the ED via EMS after an overdose. According to EMS the patient's found the patient in the bathroom, unconscious, apparently not breathing. The initiated CPR and called 911. When the police arrived they did CPR for several minutes until EMS arrived. EMS states when they arrived the patient had agonal respirations. They were unable to place an IV, however, were able to place an IO in the right lower extremity. EMS states the patient's initial blood sugar was 215 and they administered Narcan 2 mg through the IO. EMS states the patient's GCS went from 3 to 14. Upon arrival the patient was a GCS of 15. The patient states she is prescribed morphine extended release 30 mg 4 times a day for chronic pain. The patient states that she took apart and snorted 1 30 milligram tablet at approximately 8 PM. 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 Flores. The patient did complain of mild chest pain and shortness of breath, upon admission. The patient's history is significant for multiple admissions previously for substance overdose (Morphine), last admission 03/2017. The patient also had previous medical history of admissions in the past of substance abuse with heroin and cocaine, patient has a history of PTSD and chronic pain syndrome secondary to a remote history of back surgery. Laboratory and imaging studies were performed in the ED, revealed normal lactic acid however a significant leukocytosis, and probable UTI, but also noted microscopic hematuria, and elevation in creatinine. The patient was placed on Rocephin. The patient's creatinine was noted to be elevated last evening. Upon discussion with the patient, the patient states she was admitted to [facility] on 06/12/17 and was admitted for urinary tract infection, patient signed out AMA on06/21/2017. Patient also reported seeing Dr. Flores regarding as related before tumors in the right lung and duodenum. Critical care medicine was consulted. History PFSH Past Medical History Arthritis: Yes (KNEES, NECK) Blood Disorders: No Anxiety: Yes Heart Rhythm Problems: No Cancer: No Cardiovascular Problems: No Cerebrovascular Accident: No Diabetes: Yes Diminished Hearing: No Deep Vein Thrombosis: Yes (both arms) Endocrine: Yes Gastrointestinal Disorders: Yes (gasteroparesis) GERD: No Genitourinary: No Hiatal Hernia: No Immune Disorder: No Musculoskeletal: Yes Neurologic: No Psychiatric: Yes (PTSD) Reproductive: No Respiratory: No Immunizations Current: No Myocardial Infarction: No Seizures: Yes Ulcer: No : 3 Para: 3 Past Surgical History Abdominal Surgery: No Cardiac Surgery: No Ear Surgery: No Endocrine Surgery: No Genitourinary Surgery: No Gynecologic Surgery: Yes (TUBECTOMY/1999) Oral Surgery: No Thoracic Surgery: Yes (Back Surgery) Other Surgery: Yes (cervical spine metal plate) Social History Alcohol Use: No Tobacco Use: No Substance Use: Yes Allergies-Medications Allergies-Medications (Allergen,Severity, Reaction): Coded Allergies: ketorolac (Unverified Allergy, Severe, Anaphylaxis, 03/04/17) Reported Meds & Prescriptions Reported Meds & Active Scripts Active Reported Humalog Kwikpen Pen Inj (Insulin Lispro (Human) Inj) 300 Unit/3 Ml Pen 5 Units SQ ACHS SLIDING SCALE Humalog Inj (Insulin Human Lispro) 1,000 Unit/10 Ml Vial 5-25 Units SQ ACHS Max dose at bedtime:( )units; sugars < 70,(0)units; sugars 150-199,(5)units; sugars 200-249,(10)units; sugars 250-299,(15)units; sugars 300-349,(20)units; sugars more than 349,(25)units. Hydromorphone (Hydromorphone HCl) 4 Mg Tab 4 Mg PO Q6H PRN Prazosin (Prazosin HCl) 1 Mg Cap 1 Mg PO DAILY Tegretol (Carbamazepine) 200 Mg Tab 200 Mg PO BID Gabapentin 800 Mg Tab 800 Mg PO TID Requip (Ropinirole HCl) 2 Mg Tab 2 Mg PO HS Soma (Carisoprodol) 350 Mg Tab 350 Mg PO QID PRN Alprazolam 2 Mg Tab 2 Mg PO Q6H PRN Lantus Inj (Insulin Glargine) 1,000 Unit/10 Ml Vial 30 Units SQ HS Lantus Inj (Insulin Glargine) 1,000 Unit/10 Ml Vial 40 Units SQ DAILY Seroquel (Quetiapine Fumarate) 200 Mg Tab 200 Mg PO DAILY ROS Review of Systems Except as stated in HPI: all other systems reviewed are Neg General / Constitutional: No: Fever HENT: No: Lightheadedness Cardiovascular: Positive: Chest Pain or Discomfort Respiratory: Positive: Shortness of Breath Gastrointestinal: No: Nausea, Vomiting, Abdominal Pain Musculoskeletal: Positive: Pain Psychiatric: Positive: Substance Abuse (patient admits to snorting her extended release morphine earlier tonight), No: Suicidal Ideations CBC/BMP: 06/26/17 0630 06/28/17 0606 Significant Findings Laboratory Tests Test 06/26/17 06:30 06/26/17 18:41 06/27/17 12:44 06/28/17 06:06 White Blood Count 11.1 TH/MM3 (4.0-11.0) Red Blood Count 2.60 MIL/MM3 (4.00-5.30) Hemoglobin 7.9 GM/DL (11.6-15.3) Hematocrit 24.5 % (35.0-46.0) Creatinine 1.43 MG/DL (0.50-1.00) 1.63 MG/DL (0.50-1.00) 1.48 MG/DL (0.50-1.00) Random Glucose 219 MG/DL (74-106) 524 MG/DL (74-106) 259 MG/DL (74-106) 151 MG/DL (74-106) Albumin 2.2 GM/DL (3.4-5.0) Calcium Level 8.4 MG/DL (8.5-10.1) 8.4 MG/DL (8.5-10.1) Estimat Glomerular Filtration Rate 39 ML/MIN (>89) 34 ML/MIN (>89) 38 ML/MIN (>89) Sodium Level 135 MEQ/L (136-145) Test 06/28/17 11:04 06/28/17 12:50 06/28/17 13:55 Blood Gas Base Excess -2.4 mmol/L (-2-2) Arterial Blood pH 7.33 (7.380-7.420) Arterial Blood Partial Pressure CO2 44 mmHg (38-42) Arterial Blood Oxygen Content 11.2 Vol % (12.0-20.0) Blood Gas Hemoglobin 8.3 G/DL (12.0-16.0) Hemoglobin A1c 11.2 % (4.3-6.0) Urine Eosinophils 2-5 /HPF (NONE SEEN) Urine Opiates Screen POS (NEG) Urine Benzodiazepines Screen POS (NEG) Imaging Last Impressions Drainage Catheter Insertion 06/24/17 0000 Signed Impressions: Service Date/Time: Saturday, June 24, 2017 11:39 - CONCLUSION: Uncomplicated nephroureteral stent placement as above. Gaurav Parks MD Chest X-Ray 06/23/17 0600 Signed Impressions: Service Date/Time: Friday, June 23, 2017 06:01 - CONCLUSION: New bilateral perihilar opacities most characteristic of early pulmonary edema. This may be cardiogenic or noncardiogenic in origin. Surendra Wright MD Renal Ultrasound 06/23/17 0000 Signed Impressions: Service Date/Time: Friday, June 23, 2017 09:11 - CONCLUSION: 1. Bilateral pelvocaliectasis, right greater than left. 2. No stones. Edgar Vieira MD Chest CT 06/23/17 0000 Signed Impressions: Service Date/Time: Friday, June 23, 2017 09:03 - CONCLUSION: Nonspecific but severe bilateral air space consolidation involving all lobes but most prominent in the lower lobes bilaterally. Infectious process could have this appearance including atypical infections. Also, inflammatory processes should be considered in differential diagnosis. Suggest followup imaging to confirm resolution. Bill Gaxiola MD Abdomen/Pelvis CT 06/23/17 0000 Signed Impressions: Service Date/Time: Friday, June 23, 2017 09:03 - CONCLUSION: 1. Severe right hydronephrosis and hydroureter from uncertain etiology. No obstructing stone is present. No definite mass is seen on this noncontrast examination. However, cannot exclude a distal right ureteral lesion on this examination. 2. There is trace free fluid in the abdomen and pelvis. 3. There are multiple small retroperitoneal lymph nodes in the abdomen. However, these are technically not enlarged by size criteria. Suggest attention to these on followup imaging. Bill Gaxiola MD PE at Discharge awake and alert, no acute distress anicteric lungs clear regular rhythm abdomen- soft, nontender, right nephrostomy tube in place- draiing grossly clear urine parnell catheter in place LE no edema neuro exam- non focal Pt update on day of discharge after Narcan- awake and alert afebrile, comfortable - constantly asking for pain explained to her no narcotics no benzos good sats denies using meds of her own Hospital Course 46 years old female Acute change in MS- secondary to Dilaudid. spoke with staff nurse - last seen by them at 8 am- awake and alert interactive then when I walked in patient cyanotic, shallow breathing, unresponsive stat BS- 129 unable to get sats stat ABG ordered Narcan IV x 1 now- patient woke up immediately and became responsive- pink hue lips returned. DC Dilaudid, No narcotics get a stat tox screen- ? suspect using drugs/benzos on her own S/P OD on opiates - history of PSA + history of ODs in the past she admitted to taking her 's Morphine tabs and crushing them and snorting them JARVIS with underlying obstructive uropathy S/P right nephrostomy tube place Gross hematuria- resolved Urology ff- will likely go home with nephrostomy tube and work up as OP - anterograde pyelogram per last Uro notes Nephrology ff creatinine trending down- non oliguric BMP daily. continue NS Sepsis- secondary to Urologic condition Possible Aspiration Leukocytosis- trended down continue on antibiotics- Ceftriaxone- started 06/22. On Levaquin - start 06/23. - change to po Levaquin cultures negative so far DM type 2- indulin requiring BS- high- no ketosis IVF changed to NS ff BS, ff BMP as OP on Lantus- states she is on 30 am, 20 pm- + Humalog bid about 5 units started Lantus 15 units bif at a lower dose and closely monitor. continue sliding scale Chronic pain Opiate dependency No narcotics History of thrombosis, - per RUE, ? IVC- on eliquis as op restarted on Eliquis 5 mg po bid. 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 Flores will try to get records 05/28 d/w Dr. Dean- history of substance abuse and abusing opiates- several admissions outside for opiate OD history of OD x 2 in the recent past and is a danger to self Bansal acted Up and ambulate Discharge to Med/Psychiatry bed now d/w - states this is how he walked into patient at home before that brought her in the hospital several times in the past he is exasperated and frustrated d/w him that she will be transferred - patient needs a closely supervised monitored setting Pt Condition on Discharge: Guarded Discharge Disposition: Disc to Psych Care Fac Discharge Time: > 30 minutes Discharge Instructions DIET: Follow Instructions for: Heart Healthy Diet, Diabetic Diet Speech Therapy-Diet Recommends: Regular Activities you can perform: Weight Bearing as Kayce New Medications: Insulin Aspart Inj (Novolog Inj) 100 Unit/Ml Inj 1 UNITS SQ ACHS SLIDING SCALE for DM for 30 Days, INJECTION as diretcted Insulin Detemir Inj (Levemir Inj) 1,000 unit/ 10 ML Vial 15 UNITS SQ Q12HR for DM for 30 Days, INJECTION Do not mix with any other Insulin. Continued Medications: Apixaban (Eliquis) 5 Mg Tab 5 MG PO BID for Blood Clot Prevention, #60 TAB 0 Refills Carbamazepine (Tegretol) 200 Mg Tab 200 MG PO BID, #60 TAB 0 Refills Gabapentin (Gabapentin) 800 Mg Tab 800 MG PO TID, #90 TAB 0 Refills Prazosin (Prazosin) 1 Mg Cap 1 MG PO DAILY for Blood Pressure Management, #60 CAP 0 Refills Quetiapine (Seroquel) 200 Mg Tab 200 MG PO HS, #30 TAB 0 Refills Ropinirole (Requip) 2 Mg Tab 2 MG PO HS, #30 TAB 0 Refills Discontinued Medications: Alprazolam (Alprazolam) 2 Mg Tab 2 MG PO Q6H PRN for ANXIETY, TAB Carisoprodol (Soma) 350 Mg Tab 350 MG PO QID PRN for PAIN, TAB 0 Refills Hydromorphone (Hydromorphone) 4 Mg Tab 4 MG PO Q6H PRN for PAIN, TAB 0 Refills Insulin Glargine Inj (Lantus Inj) 1,000 Unit/10 Ml Vial 30 UNITS SQ HS for Blood Sugar Management, VIAL 0 Refills Insulin Glargine Inj (Lantus Inj) 1,000 Unit/10 Ml Vial 20 UNITS SQ HS for Blood Sugar Management, VIAL 0 Refills Insulin Lispro (Human) Inj (Humalog Inj) 1,000 Unit/10 Ml Vial 5-25 UNITS SQ ACHS for Blood Sugar Management, #1 VIAL 0 Refills Max dose at bedtime:( )units; sugars < 70,(0)units; sugars 150-199,(5)units; sugars 200-249,(10)units; sugars 250-299,(15)units; sugars 300-349,(20)units; sugars more than 349,(25)units. Insulin Lispro (Human) Inj (Humalog Kwikpen Pen Inj) 300 Unit/3 Ml Pen 5 UNITS SQ ACHS SLIDING SCALE for Blood Sugar Management, PEN 0 Refills Mali Wallace MD Jun 28, 2017 20:42
[2017-06-29] MEDS ORDERED: LEVOFLOXACIN 250 MG TAB PO SCH (09:00)
== END 2017-06-28 14:15 | DRG 917 ==
LOC: PHED 21:34 → PHEDA 23:09 → OBSVTOIN 23:30 → PHICU 06-23 00:30 → HIMW 06-23 20:45 → N04B 06-26 14:19
PROVIDERS: ADMIT Internal Medicine; ATTEND Internal Medicine
PROC: 0T9030Z Drainage of Right Kidney with Drainage Device, Percutaneous Approach (ICD-10-PCS; principal; 2017-06-24)
DX: T40.2X1A Poisoning by other opioids, accidental (unintentional), initial encounter (principal); A41.9 Sepsis, unspecified organism; N17.0 Acute kidney failure with tubular necrosis; E11.22 Type 2 diabetes mellitus with diabetic chronic kidney disease; E11.649 Type 2 diabetes mellitus with hypoglycemia without coma; F11.20 Opioid dependence, uncomplicated; N13.30 Unspecified hydronephrosis; N39.0 Urinary tract infection, site not specified; N18.9 Chronic kidney disease, unspecified; D50.9 Iron deficiency anemia, unspecified; R09.02 Hypoxemia; G89.4 Chronic pain syndrome; E86.0 Dehydration; R23.0 Cyanosis; R00.0 Tachycardia, unspecified; F31.9 Bipolar disorder, unspecified; F41.9 Anxiety disorder, unspecified; F43.10 Post-traumatic stress disorder, unspecified; Y92.002 Bathroom of unspecified non-institutional (private) residence as the place of occurrence of the external cause; Z79.01 Long term (current) use of anticoagulants; Z79.4 Long term (current) use of insulin; Z86.718 Personal history of other venous thrombosis and embolism; Z91.19 Patient's noncompliance with other medical treatment and regimen
CPT/HCPCS: 36600; 50433; 71010; 71250; 74176; 76775; 76937; 80048; 80053; 80069; 80307; 81001; 82550; 82570; 82728; 82805; 82947; 82948; 83036; 83540; 83550; 83605; 83735; 84100; 84300; 84484; 84702; 85007; 85025; 85027; 85610; 85730; 87040; 87086; 87205; 87641; 87804; 93005; 94150; C1769; C1887; C1894; J0131; J0696; J1170; J1644; J1815; J1956; J2270; J2310; J2405; J3475; J7030; J7040; J7042

== ENCOUNTER 2017-06-28 13:05 | Inpatient (IN) | payer MEDICAID, OTHER ==
[~2017-06-28] VITALS: Ht 162.6 cm; Wt 64.6 kg
[~2017-06-28 13:05] MED LIST changes: +APIX5TAB PO; +LEVEMIR SQ; +NOVOLOGSS SQ
[2017-06-28] MEDS ORDERED: ALUMINUM/MAGNESIUM/SIMETH 30 ML CUP PO PRN (16:00)
[2017-06-28] MEDS ORDERED: MAGNESIUM HYDROXIDE SUSP 30 ML CUP PO PRN (16:00)
[2017-06-28] MEDS: NICOTINE 21 MG/24 HR PATCH T-DERMAL SCH (16:00)
[2017-06-28] MEDS ORDERED: diphenhydrAMINE HCL 50 MG CAP PO PRN (16:00)
--- NOTE | 2017-06-28 16:31 | PD.CONS ---
HPI Consult Requested By Diagnoses: Past Family Social History Allergies: Coded Allergies: ketorolac (Unverified Allergy, Severe, Anaphylaxis, 06/22/17) Mali Wallace MD Jun 28, 2017 16:31
[2017-06-28] MEDS ORDERED: INSULIN ASPART SUPPLEMENTAL SCALE SQ SCH (17:00)
[2017-06-28 18:00] VITALS: BP 120/59; PULSE 87; RESP 18; TEMP 98.1; O2SAT 87
[2017-06-28] MEDS: REMOVE OLD PATCH T-DERMAL SCH (20:25)
[2017-06-28] MEDS: GABAPENTIN 300 MG CAP PO SCH (21:51)
[2017-06-28] MEDS: carBAMazepine 200 MG TAB PO SCH (21:52)
[2017-06-28] MEDS: QUEtiapine FUMARATE 200 MG TAB PO SCH (21:52)
[2017-06-28] MEDS: APIXABAN 5 MG TABLET PO SCH (21:52)
[2017-06-28] MEDS: INSULIN ASPART SUPPLEMENTAL SCALE SQ SCH (21:53)
[2017-06-28] MEDS: INSULIN DETEMIR 100 UNITS/ML VIAL SQ SCH (21:54)
[2017-06-29 05:51] VITALS: BP 130/67; PULSE 92; RESP 17; TEMP 98.5; O2SAT 97
[2017-06-29] MEDS: INSULIN ASPART SUPPLEMENTAL SCALE SQ SCH ×4 (07:43→21:33)
[2017-06-29 08:14] LABS: BICARBONATE 28.7 MEQ/L (21.0-32.0); POTASSIUM 4.5 MEQ/L (3.5-5.1)
[2017-06-29 08:16] LABS: HDL CHOLESTEROL 54.5 MG/DL (40.0-60.0)
[2017-06-29] MEDS: GABAPENTIN 300 MG CAP PO SCH (08:20)
[2017-06-29] MEDS: NICOTINE 21 MG/24 HR PATCH T-DERMAL SCH (08:20)
[2017-06-29] MEDS: APIXABAN 5 MG TABLET PO SCH ×2 (08:20→21:30)
[2017-06-29] MEDS: carBAMazepine 200 MG TAB PO SCH ×2 (08:20→21:30)
[2017-06-29] MEDS: INSULIN DETEMIR 100 UNITS/ML VIAL SQ SCH ×2 (09:00→21:31)
--- NOTE | 2017-06-29 09:39 | PD.CONS ---
[facility] By DR THOMAS Reason for Consult Medical management Primary Care Physician Sukumar Logan MD Diagnoses: History of Present Illness Patient is a 46-year-old female. Recently in the ICU in the after an opiate overdose. Patient had been brought in initially via EMS for the found her in the bathroom unconscious is not breathing he started CPR and called 911 when they came up several minutes later when EMS arrived. She was initially having agonal respirations unable to place an IV therefore had an intraosseous placed in the right lower extremity patient's blood sugar per chart review was 2 :15 when she came in by EMS was given Narcan through the intraosseous access. Kalyan Coma Scale went from 3-14-15. 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 Mac who does not come to the hospital has history of back surgery and chronic pain is noted to have a urinary tract infection also. Patient had also previously been at [facility] from June 12 and then signed out AMA from [facility] on 06/21/17 Was transferred to the floor. Transferred to inpatient psychiatry for psychiatric medicine due to her chronic ongoing issues Has a chronic Muhammad in place as well as a right nephrostomy tube Discussed with patient and solar energy specialist of Systems Constitutional: DENIES: Diaphoretic episodes, Fatigue, Fever, Weight gain, Weight loss, Chills, Dizziness, Change in appetite Endocrine: DENIES: Abnorml menstrual pattern, Heat/cold intolerance Eyes: DENIES: Blurred vision, Diplopia, Eye inflammation, Eye pain Ears, nose, mouth, throat: DENIES: Tinnitus, Hearing loss, Vertigo, Nasal discharge Respiratory: DENIES: Apneas, Cough, Snoring, Wheezing Cardiovascular: DENIES: Chest pain, Palpitations, Syncope, Dyspnea on Exertion Gastrointestinal: DENIES: Abdominal pain, Black stools, Bloody stools Musculoskeletal: COMPLAINS OF: Joint pain, Back pain, Neck pain, DENIES: Muscle aches, Stiffness, Joint Swelling Integumentary: DENIES: Abnormal pigmentation, Pruritus Hematologic/lymphatic: DENIES: Bruising, Lymphadenopathy Immunologic/allergic: DENIES: Eczema, Urticaria Neurologic: DENIES: Abnormal gait, Headache, Localized weakness Psychiatric: COMPLAINS OF: Anxiety, Mood changes, Depression Past Family Social History Allergies: Coded Allergies: ketorolac (Unverified Allergy, Severe, Anaphylaxis, 06/22/17) Past Medical History Osteoarthritis of the knees and neck Anxiety History of deep vein thrombosis Gastroparesis Posterior medics stress disorder Seizure disorder Chronic pain Chronic Eliquis chronic diabetes on insulin Past Surgical History Salpingectomy in 1998 Back surgery Cervical spine surgery with a metal plate Cholecystectomy Tubal ligation Reported Medications Reported Meds & Active Scripts Active Novolog Inj (Insulin Aspart) 100 Unit/Ml Inj 1 Units SQ ACHS SLIDING SCALE 30 Days as diretcted Levemir Inj (Insulin Detemir) 1,000 unit/ 10 ML Vial 15 Units SQ Q12HR 30 Days Do not mix with any other Insulin. Reported Eliquis (Apixaban) 5 Mg Tab 5 Mg PO BID Prazosin (Prazosin HCl) 1 Mg Cap 1 Mg PO DAILY Tegretol (Carbamazepine) 200 Mg Tab 200 Mg PO BID Gabapentin 800 Mg Tab 800 Mg PO TID Requip (Ropinirole HCl) 2 Mg Tab 2 Mg PO HS Seroquel (Quetiapine Fumarate) 200 Mg Tab 200 Mg PO HS Active Ordered Medications Current Medications Diphenhydramine HCl (Benadryl) 50 mg HS PRN PO INSOMNIA; Start 06/28/17 at 16: 00 Acetaminophen (Tylenol) 650 mg Q4H PRN PO Pain 1-5 or Temp >101F; Start at 16:00 Magnesium Hydroxide (Milk Of Magnesia Liq) 30 ml DAILY PRN PO CONSTIPATION; Start 06/28/17 at 16:00 Al Hydrox/Mg Hydrox/Simethicone (Mag-Al Plus Susp Liq) 30 ml Q6H PRN PO DYSPEPSIA; Start 06/28/17 at 16:00 Nicotine (Habitrol 21 Mg Patch.24 Hr) 1 patch DAILY T-DERMAL ; Start 06/28/17 at 16:00 Hydroxyzine HCl (Atarax) 50 mg Q6H PRN PO ANXIETY; Start 06/28/17 at 16:00 Miscellaneous Information 1 DAILY T-DERMAL ; Start 06/29/17 at 09:00 Apixaban (Eliquis) 5 mg BID PO Last administered on 06/29/17 08:20; Start at 21:00 Carbamazepine (TEGretol) 200 mg BID PO Last administered on 06/29/17 08:20; Start 06/28/17 at 21:00 Insulin Aspart (NovoLOG SUPPLEMENTAL SCALE) 1 ACHS SLIDING SCALE SQ ; Start at 17:00; Status Cancel Insulin Detemir (Levemir Inj) 15 units Q12HR SQ Last administered on 06/28/17 21:54; Start 06/28/17 at 21:00 Quetiapine Fumarate (SEROquel) 200 mg HS PO Last administered on 06/28/17 21: 52; Start 06/28/17 at 21:00 Gabapentin (Neurontin) 600 mg BID PO Last administered on 06/29/17 08:20; Start 06/28/17 at 21:00 Insulin Aspart (NovoLOG SUPPLEMENTAL SCALE) 1 ACHS SLIDING SCALE SQ Last administered on 06/29/17 07:43; Start 06/28/17 at 21:00 Family History Possible hypertension Social History Drug abuse. Snorting OxyContin Denies tobacco or alcohol abuse Physical Exam Vital Signs Vital Signs Date Time Temp Pulse Resp B/P (MAP) Pulse Ox O2 Delivery O2 Flow Rate FiO2 06/29/17 05:51 98.5 92 17 130/67 (88) 97 06/28/17 18:00 98.1 87 18 120/59 (79) 87 Physical Exam GENERAL: This is a well-nourished, well-developed patient, in no apparent distress. SKIN: No rashes, ecchymoses or lesions. Cool and dry. Possible black spot on right ear needs to follow-up with her primary ornamental painter HEAD: Atraumatic. Normocephalic. No temporal or scalp tenderness. EYES: Pupils equal round and reactive. Extraocular motions intact. No scleral icterus. No injection or drainage. ENT: Nose without bleeding, purulent drainage or septal hematoma. Throat without erythema, tonsillar hypertrophy or exudate. Uvula midline. Airway patent. NECK: Trachea midline. No JVD or lymphadenopathy. Supple, nontender, no meningeal signs. CARDIOVASCULAR: Regular rate and rhythm without murmurs, gallops, or rubs. S1 and S2 no S3 or S4 RESPIRATORY: Clear to auscultation. Breath sounds equal bilaterally. No wheezes , rales, or rhonchi. GASTROINTESTINAL: Abdomen soft, non-tender, nondistended. No hepato-splenomegaly , or palpable masses. No guarding. Muhammad catheter in place right nephrostomy tube in place MUSCULOSKELETAL: Extremities without clubbing, cyanosis, or edema. No joint tenderness, effusion, or edema noted. No calf tenderness. Negative Homans sign bilaterally. NEUROLOGICAL: Awake and alert. Cranial nerves II through XII intact. Motor and sensory grossly within normal limits. Five out of 5 muscle strength in all muscle groups. Normal speech. Insight and judgment is limited Mood and behavior is some appropriate Laboratory Laboratory Tests Test 06/29/17 07:20 Blood Urea Nitrogen 15 Creatinine 1.39 Random Glucose 148 Calcium Level 8.8 Sodium Level 136 Potassium Level 4.5 Chloride Level 101 Carbon Dioxide Level 28.7 Anion Gap 6 Estimat Glomerular Filtration Rate 41 Triglycerides Level 117 Cholesterol Level 192 LDL Cholesterol 114 HDL Cholesterol 54.5 Cholesterol/HDL Ratio 3.52 Result Diagram: 06/29/17 0720 Assessment and Plan Assessment and Plan Status post mental status changes due to chronic pain medication overdose monitor Status post overdose on opiates has been crushing her 's morphine tablets and snorting them Acute kidney injury with obstructive uropathy status post right nephrostomy tube and Muhammad catheter Recent sepsis due to probable UTI resolved Possible aspiration resolved Leukocytosis trending down Diabetes mellitus on sliding scale coverage and Lantus/Levemir Chronic pain continue on some opiates and or other medications to replace it History of thrombosis on Eliquis 5 mg twice a day Chronic anemia Ongoing psychiatric issues per psychiatry with recent history of overdoses Chaz act Code Status Full code Discussed Condition With Discussed with RN and patient Gonzalo Clinton DO Jun 29, 2017 09:39
--- NOTE | 2017-06-29 11:11 | HHI.HP ---
Provisional Diagnosis Admission Date Jun 28, 2017 at 14:37 [facility]. Bipolar disorder, polysubstance use disorder Certification of Person's Competence To Provide Express and Informed Consent I have personally examined Keisha Schmid , a person being served at [facility] on, Jun 29, 2017 11:01. Express and informed consent means consent voluntarily given in writing, by a competent person, after sufficient explanation and disclosure of the subject matter involved to enable the person to make a knowing and willful decision without any element of force, fraud, deceit, duress, or other form of constraint or coercion. This person is 18 years of age or older, is not now known to be incompetent to consent to treatment with a guardian advocate, and does not have a health care surrogate or proxy currently making medical treatment decisions. I have found this person to be one of the following: [x] Competent to provide express and informed consent, as defined above, for voluntary admission to this facility and is competent to provide express and informed consent for treatment. He/she has the consistent capacity to make well reasoned, willful, and knowing decisions concerning his or her medical or mental health treatment. The person fully and consistently understands the purpose of the admission for examination/placement and is fully capable of personally exercising all rights assured [place] Incompetent to provide express and informed consent to voluntary admission, and this is incompetent to provide express and informed consent to treatment. The person must be transferred to involuntary status and a petition for a guardian advocate filed with the Circuit Court. [] Refusing to provide express and informed consent to voluntary admission but is competent to provide express and informed consent for treatment. The person must be discharged or transferred to involuntary status. Form shall be completed within 24 hours of a person's arrival at the receiving facility and filed in the clinical record of each person: 1. Admitted on a voluntary basis 2. Permitted to provide express and informed consent to his/her own treatment 3. Allowed to transfer from involuntary to voluntary status 4. Prior to permitting a person to consent to his or her own treatment after having been previously found incompetent to consent to treatment. History of Present Illness Capacity: Has Capacity HPI Patient is a 46-year-old woman, , domicile has been, since I with a past psychiatric history of bipolar disorder, anxiety disorder, opiate/ cocaine/heroine use disorder, no previous psychiatric hospitalizations, no previous suicide attempts, several Bansal acts for accidental overdoses and recent medications in the past was admitted to the medical floor for overdose on opiates, hypoxia, chronic anemia, and JARVIS who was seen by psychiatry consult team and put under Bansal act due to concern for elevated risk for self-harm due to recent behavior which she was transferred to the inpatient psychiatry for further evaluation and management. As per Dr. Cerrato notes: According to EMS the patient's found the patient in the bathroom, unconscious, apparently not breathing. The initiated CPR and called 911. When the police arrived they did CPR for several minutes until EMS arrived. EMS states when they arrived the patient had agonal respirations. They were unable to place an IV, however, were able to place an IO in the right lower extremity. EMS states the patient's initial blood sugar was 215 and they administered Narcan 2 mg through the IO. EMS states the patient's GCS went from 3 to 14. Upon arrival the patient was a GCS of 15. It was also noted in the chart: The patient states she is prescribed morphine extended release 30 mg 4 times a day for chronic pain. The patient states that she took apart and snorted 1 30 milligram tablet at approximately 8 PM. 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 Flores. The patient did complain of mild chest pain and shortness of breath, upon admission. The patient's history is significant for multiple admissions previously for substance overdose (Morphine) , last admission 03/2017. The patient also had previous medical history of admissions in the past of substance abuse with heroin and cocaine, patient has a history of PTSD and chronic pain syndrome secondary to a remote history of back surgery. Laboratory and imaging studies were performed in the ED, revealed normal lactic acid however a significant leukocytosis, and probable UTI , but also noted microscopic hematuria, and elevation in creatinine. The patient was placed on Rocephin. The patient's creatinine was noted to be elevated last evening. Upon discussion with the patient, the patient states she was admitted to [facility] on 06/12/17 and was admitted for urinary tract infection, patient signed out AMA on06/21/2017. Patient upon psychiatric consult follow-up denied recent overdose as a suicide attempt, to date previous visits to the hospital for overdoses. Patient was seen today with nurse and investment underwriter found sitting in hospital bed, cooperative. Patient states that she did not intend to overdose and that he was due to her low blood pressure that she was found unconscious. It was explained to the patient is unlikely her blood pressure the cause her to have a low GCS score which she was revived with Narcan. Patient states that she has previous pain management provider but has stopped attending 3 months ago due to difficulty going to multiple appointments. Patient states that since she had been following only with her primary care doctor for her psychiatric medications as well as her pain management medications. Patient continued to deny having had previous incidence of overdoses but was reminded of her multiple visits and documented clinical presentation overdose on opiates. Discussion with the high probability of patient having addiction to opiate prescription medications as well as history of cocaine and heroine use was reviewed with patient which she reported interview acknowledged that she may have an addiction problem. Patient initially was resistant to needing a rehabilitation program stating that all she needs is a good psychiatrist but it was explained to the patient that she will require substance use intervention to address her addiction and to lower her chronic risk of accidental overdoses with her current use. Patient at this time denies SI, HI, AVH or delusions. Family psychiatric history: Denies Past psychiatric history: Previous diagnosis of bipolar disorder, anxiety disorder, polysubstance use disorder (opiates/heroine/cocaine), no previous psychiatric hospitalizations, no previous suicide attempts or self-injurious behavior, multiple previous Bansal act for accidental overdoses any some medications in the past. Patient has no current outpatient psychiatric provider. Current medications include carbamazepine 200 mg by mouth twice a day , Seroquel 200 mg at bedtime and gabapentin 600 mg by mouth twice a day. Substance use history: Cocaine use but states that her last use was over a year ago, remote history of heroin use, recent opioid prescription use for chronic pain, denies any previous rehabilitation or detox programs. Allergies: NKDA Past medical history: Spinal cord injury, diabetes. Has primary care doctor ( Dr. De Leon) Social history: Domiciled with , unemployed on SSI, born and raised in [place], highest education is 10th grade. Review of Systems Except as stated in HPI: all other systems reviewed are Neg Past Psych History Violence risk - others (6 mos) Low Violence risk - self (6 mos) Elevated due to recent multiple accidental overdoses with opiate prescriptions Substance Abuse History Drugs/Alcohol past 12 months Cocaine use but states that her last use was over a year ago, remote history of heroin use, recent opioid prescription use for chronic pain, denies any previous rehabilitation or detox programs. Past Family Social History Coded Allergies: ketorolac (Unverified Allergy, Severe, Anaphylaxis, 06/22/17) Active Scripts Insulin Aspart Inj (Novolog Inj) 100 Unit/Ml Inj, 1 UNITS SQ ACHS SLIDING SCALE for DM for 30 Days, INJECTION as diretcted Prov:Mali Wallace MD 06/28/17 Insulin Detemir Inj (Levemir Inj) 1,000 unit/ 10 ML Vial, 15 UNITS SQ Q12HR for DM for 30 Days, INJECTION Do not mix with any other Insulin. Prov:Mali Wallace MD 06/28/17 Reported Medications Apixaban (Eliquis) 5 Mg Tab, 5 MG PO BID for Blood Clot Prevention, #60 TAB 0 Refills 06/23/17 Prazosin (Prazosin) 1 Mg Cap, 1 MG PO DAILY for Blood Pressure Management, #60 CAP 0 Refills 09/06/16 Carbamazepine (Tegretol) 200 Mg Tab, 200 MG PO BID, #60 TAB 0 Refills 09/06/16 Gabapentin (Gabapentin) 800 Mg Tab, 800 MG PO TID, #90 TAB 0 Refills 05/29/16 Ropinirole (Requip) 2 Mg Tab, 2 MG PO HS, #30 TAB 0 Refills 05/29/16 Quetiapine (Seroquel) 200 Mg Tab, 200 MG PO HS, #30 TAB 0 Refills 05/29/16 Discontinued Reported Medications Insulin Glargine Inj (Lantus Inj) 1,000 Unit/10 Ml Vial, 20 UNITS SQ HS for Blood Sugar Management, VIAL 0 Refills 06/23/17 Insulin Lispro (Human) Inj (Humalog Kwikpen Pen Inj) 300 Unit/3 Ml Pen, 5 UNITS SQ ACHS SLIDING SCALE for Blood Sugar Management, PEN 0 Refills 09/06/16 Insulin Lispro (Human) Inj (Humalog Inj) 1,000 Unit/10 Ml Vial, 5-25 UNITS SQ ACHS for Blood Sugar Management, #1 VIAL 0 Refills Max dose at bedtime:( )units; sugars < 70,(0)units; sugars 150-199,(5)units; sugars 200-249,(10)units; sugars 250-299,(15)units; sugars 300-349,(20)units; sugars more than 349,(25)units. 09/06/16 Hydromorphone (Hydromorphone) 4 Mg Tab, 4 MG PO Q6H Y for PAIN, TAB 0 Refills 09/06/16 Carisoprodol (Soma) 350 Mg Tab, 350 MG PO QID Y for PAIN, TAB 0 Refills 05/29/16 Alprazolam (Alprazolam) 2 Mg Tab, 2 MG PO Q6H Y for ANXIETY, TAB 05/29/16 Insulin Glargine Inj (Lantus Inj) 1,000 Unit/10 Ml Vial, 30 UNITS SQ HS for Blood Sugar Management, VIAL 0 Refills 05/29/16 Insulin Glargine Inj (Lantus Inj) 1,000 Unit/10 Ml Vial, 40 UNITS SQ DAILY for Blood Sugar Management, VIAL 0 Refills 05/29/16 Current Medications Medications (Trade) Dose Ordered Sig/Doris Route Start Time Stop Time Status Last Admin (Benadryl) 50 mg HS PRN PO 06/28/17 16:00 (Tylenol) 650 mg Q4H PRN PO 06/28/17 16:00 (Milk Of Magnesia Liq) 30 ml DAILY PRN PO 06/28/17 16:00 (Mag-Al Plus Susp Liq) 30 ml Q6H PRN PO 06/28/17 16:00 (Habitrol 21 Mg Patch.24 Hr) 1 patch DAILY T-DERMAL 06/28/17 16:00 (Atarax) 50 mg Q6H PRN PO 06/28/17 16:00 Miscellaneous Information 1 DAILY T-DERMAL 06/29/17 09:00 (Eliquis) 5 mg BID PO 06/28/17 21:00 06/29/17 08:20 (TEGretol) 200 mg BID PO 06/28/17 21:00 06/29/17 08:20 (Levemir Inj) 15 units Q12HR SQ 06/28/17 21:00 06/28/17 21:54 (SEROquel) 200 mg HS PO 06/28/17 21:00 06/28/17 21:52 (NovoLOG SUPPLEMENTAL SCALE) 1 ACHS SLIDING SCALE SQ 06/28/17 21:00 06/29/17 07:43 (Neurontin) 400 mg TID PO 06/29/17 13:00 Family Psych History Denies Social History Domiciled with , unemployed on SSI, born and raised in [place], highest education is 10th grade. Patient's Strengths (min. 2) Verbal and communicative Physical Exam Patient not noted to be in acute distress, no gross motor abnormalities, no tremors or EPS, no noted psychomotor retardation or agitation. Vital Signs Vital Signs Date Time Temp Pulse Resp B/P (MAP) Pulse Ox O2 Delivery O2 Flow Rate FiO2 06/29/17 05:51 98.5 92 17 130/67 (88) 97 I/O 06/29/17 06/29/17 06/30/17 08:00 16:00 00:00 Intake Total 480 ml Balance 480 ml Lab Results Test 06/29/17 07:20 Blood Urea Nitrogen 15 MG/DL Creatinine 1.39 MG/DL Random Glucose 148 MG/DL Calcium Level 8.8 MG/DL Sodium Level 136 MEQ/L Potassium Level 4.5 MEQ/L Chloride Level 101 MEQ/L Carbon Dioxide Level 28.7 MEQ/L Anion Gap 6 MEQ/L Estimat Glomerular Filtration Rate 41 ML/MIN Triglycerides Level 117 MG/DL Cholesterol Level 192 MG/DL LDL Cholesterol 114 MG/DL HDL Cholesterol 54.5 MG/DL Cholesterol/HDL Ratio 3.52 RATIO Mental Status Examination Appearance: Appropriate Consciousness: Alert Orientation: Person, Place, Date/Time Motor Activity: Normal gait Speech: Unremarkable Language: Adequate Fund of Knowledge: Adequate Attention and Concentration: Adequate Memory: Unremarkable Mood: Anxious Affect: Appropriate Thought Process & Associations: Linear Thought Content: Appropriate Hallucination Type: None Delusion Type: None Suicidal Ideation: No Suicidal Plan: No Suicidal Intention: No Homicidal Ideation: No Homicidal Plan: No Homicidal Intention: No Insight: Poor Judgment: Impulsive Assessment & Plan Problem List: (1) Bipolar disorder ICD Codes: F31.9 - Bipolar disorder, unspecified (2) Opiate dependence ICD Codes: F11.20 - Opioid dependence, uncomplicated Status: Acute Assessment & Plan Estimated LOS: 5-7 days. Patient is a 46 year woman who carries a diagnosis of bipolar disorder, anxiety disorder, opiate/heroine/cocaine use disorder was admitted to the medical floor initially due to overdose on opiates subsequently put other Bansal act due to his concerns of elevated risk for self- harm due to her recent multiple accident overdoses and subsequently transferred to the inpatient psychiatry unit for further evaluation and management. Patient at this time with poor insight into her addiction to prescription opioids which she has been misusing and having had multiple accidental overdoses recently which have put her at risk for further harm. After discussion and explanation of her high likelihood of having addiction to prescription opioids and her behaviors which have led her to dangerous circumstances of requiring medical interventions to revive patient from overdoses patient agreed to engage in rehabilitation program as well as to allow coordination of referral to appropriate providers to address her mental illness as well as her pain management. Patient agrees to voluntary admission. Continue recommendations as per primary medical team as patient currently has a nephrostomy and place. Continue carbamazepine 200 mg by mouth twice a day, quetiapine 200 mg at bedtime, gabapentin 600 mg by mouth twice a day, start BuSpar 7.5 mg by mouth twice a day for anxiety along with hydroxyzine 50 mg every 6 hours for when necessary for breakthrough anxiety. Continue to monitor him medication response and adverse drug reactions. Continue recommendations as per primary medical team. Patient to participate in groups and activities on the unit. Discharge planning in progress Discharge Planning Patient to engage in inpatient rehabilitation program once psychiatrically and medically stable. Marcell Doran MD Jun 29, 2017 11:11
[2017-06-29] MEDS ORDERED: PILL SPLITTER OTHER PRN (11:15)
[2017-06-29] MEDS: ACETAMINOPHEN 325 MG TAB PO PRN (12:46)
[2017-06-29] MEDS: busPIRone HCL 5 MG TAB PO SCH ×2 (12:47→21:31)
[2017-06-29] MEDS: GABAPENTIN 400 MG CAP PO SCH ×2 (13:45→18:00)
[2017-06-29] MEDS ORDERED: MAGNESIUM HYDROXIDE SUSP 30 ML CUP PO PRN (17:15)
[2017-06-29] MEDS ORDERED: oxyCODONE/ACETAMINOPHEN 5 MG/325 MG TAB PO PRN (17:15)
[2017-06-29] MEDS ORDERED: NALOXONE HCL 0.4 MG/ML AMP IV PUSH PRN (17:15)
[2017-06-29] MEDS ORDERED: BISACODYL 10 MG SUPP RECTAL PRN (17:15)
[2017-06-29] MEDS ORDERED: SENNOSIDES 8.6 MG TAB PO PRN (17:15)
[2017-06-29] MEDS ORDERED: LACTULOSE SYRUP 20 GM/30 ML CUP PO PRN (17:15)
[2017-06-29 17:52] VITALS: BP 143/67; PULSE 86; RESP 17; TEMP 98.4; O2SAT 99
[2017-06-29 18:18] VITALS: BP 143/67; PULSE 86; RESP 17; TEMP 98.4; O2SAT 99
[2017-06-29] MEDS: hydrOXYzine HCL 50 MG TAB PO PRN (18:27)
[2017-06-29] MEDS: oxyCODONE/ACETAMINOPHEN 10 MG/325 MG TAB PO PRN (21:29)
[2017-06-29] MEDS: QUEtiapine FUMARATE 200 MG TAB PO SCH (21:30)
[2017-06-29] MEDS: DOCUSATE SODIUM 50 MG/SENNA 8.6 MG TAB PO SCH (21:30)
[2017-06-30] MEDS: hydrOXYzine HCL 50 MG TAB PO PRN (02:19)
[2017-06-30] MEDS: oxyCODONE/ACETAMINOPHEN 10 MG/325 MG TAB PO PRN ×3 (04:20→18:00)
[2017-06-30 05:53] VITALS: BP 121/68; PULSE 83; RESP 17; TEMP 98; O2SAT 97
[2017-06-30] MEDS: ACETAMINOPHEN 325 MG TAB PO PRN ×2 (06:08→13:52)
[2017-06-30] MEDS: INSULIN ASPART SUPPLEMENTAL SCALE SQ SCH ×4 (08:00→21:23)
[2017-06-30] MEDS: GABAPENTIN 400 MG CAP PO SCH ×4 (08:10→21:23)
[2017-06-30] MEDS: carBAMazepine 200 MG TAB PO SCH ×2 (08:10→21:10)
[2017-06-30] MEDS: REMOVE OLD PATCH T-DERMAL SCH (08:11)
[2017-06-30] MEDS: APIXABAN 5 MG TABLET PO SCH ×2 (08:11→21:10)
[2017-06-30] MEDS: DOCUSATE SODIUM 50 MG/SENNA 8.6 MG TAB PO SCH ×2 (08:11→21:10)
[2017-06-30] MEDS: NICOTINE 21 MG/24 HR PATCH T-DERMAL SCH (08:11)
[2017-06-30] MEDS: busPIRone HCL 5 MG TAB PO SCH ×2 (08:12→21:10)
[2017-06-30] MEDS: INSULIN DETEMIR 100 UNITS/ML VIAL SQ SCH ×2 (08:40→21:23)
--- NOTE | 2017-06-30 15:22 | HHI.PYPN ---
Subjective Remarks Patient seen for follow-up, chart reviewed. Discussion she staff reported the patient had reported pain but has been managed by medical team which she is currently now on Lortab to 6 hours when necessary pain which she has received 2 doses thus far. Patient was found lying in hospital bed awake, cooperative. Patient states that she is feeling "okay", reports tolerating BuSpar well, reports sleeping well with good mood. Patient states that she had been visited by her which she feels is been very supportive. Patient denies any sad or depressed, denies any suicidal ideations. Patient states her pain is better that she had Percocet now added to her regimen. Patient states that she would like to continue considering rehabilitation program postdischarge and referral to providers to address her pain, general health and mental health. Review of Systems Except as stated in HPI: all other systems reviewed are Neg Mental Status Examination Appearance: Appropriate Consciousness: Alert Orientation: Person, Place, Date/Time Motor Activity: Normal gait Speech: Unremarkable Language: Adequate Fund of Knowledge: Adequate Attention and Concentration: Adequate Memory: Unremarkable Mood: Anxious Affect: Appropriate Thought Process & Associations: Linear Thought Content: Appropriate Hallucination Type: None Delusion Type: None Suicidal Ideation: No Suicidal Plan: No Suicidal Intention: No Homicidal Ideation: No Homicidal Plan: No Homicidal Intention: No Insight: Poor Judgment: Impulsive Results Vitals/IOs Vital Signs Date Time Temp Pulse Resp B/P (MAP) Pulse Ox O2 Delivery O2 Flow Rate FiO2 06/30/17 11:26 16 06/30/17 05:53 98.0 83 121/68 (85) 97 Intake and Output 06/30/17 06/30/17 07/01/17 08:00 16:00 00:00 Intake Total 1200 ml 720 ml Output Total 1000 ml Balance 1200 ml -280 ml Assessment & Plan Problem List: (1) Bipolar disorder ICD Codes: F31.9 - Bipolar disorder, unspecified (2) Opiate dependence ICD Codes: F11.20 - Opioid dependence, uncomplicated Status: Acute Assessment & Plan Patient at this time is tolerating current treatment regimen. Patient does report some pain due to nephrostomy site as well as her chronic pain due to her previous injuries. Patient currently with adequate pain control and tolerating treatment. Continue current treatment for now. Patient to be referred to a rehabilitation program. Continue recommendations as per primary medical team. Discharge planning in progress Justification for Cont. Inpt. At risk for further decompensation at a lower level of care Discharge Planning Patient to return back to her residence was psychiatrically stable. Marcell Doran MD Jun 30, 2017 15:22
[2017-06-30 18:00] VITALS: BP 129/69; PULSE 86; RESP 17; TEMP 98.3; O2SAT 98
[2017-06-30] MEDS: QUEtiapine FUMARATE 200 MG TAB PO SCH (21:10)
[2017-07-01] MEDS: oxyCODONE/ACETAMINOPHEN 10 MG/325 MG TAB PO PRN ×2 (00:41→12:04)
[2017-07-01 05:58] VITALS: BP 145/85; PULSE 81; RESP 18; TEMP 98.1; O2SAT 98
[2017-07-01] MEDS: ACETAMINOPHEN 325 MG TAB PO PRN (07:00)
[2017-07-01] MEDS: INSULIN ASPART SUPPLEMENTAL SCALE SQ SCH ×2 (08:00→12:00)
[2017-07-01] MEDS: GABAPENTIN 400 MG CAP PO SCH ×2 (09:00→12:40)
[2017-07-01] MEDS: DOCUSATE SODIUM 50 MG/SENNA 8.6 MG TAB PO SCH (09:00)
[2017-07-01] MEDS: INSULIN DETEMIR 100 UNITS/ML VIAL SQ SCH (09:00)
[2017-07-01] MEDS: carBAMazepine 200 MG TAB PO SCH (09:00)
[2017-07-01] MEDS: REMOVE OLD PATCH T-DERMAL SCH (09:00)
[2017-07-01] MEDS: busPIRone HCL 5 MG TAB PO SCH (09:00)
[2017-07-01] MEDS: NICOTINE 21 MG/24 HR PATCH T-DERMAL SCH (09:00)
[2017-07-01] MEDS: APIXABAN 5 MG TABLET PO SCH (09:00)
[2017-07-01] MEDS ORDERED: TEGR200T PO (09:52)
[2017-07-01] MEDS ORDERED: PERI PO (09:52)
[2017-07-01] MEDS ORDERED: NEUR400C PO (09:52)
[2017-07-01] MEDS ORDERED: BUSP1TAB PO (09:52)
[2017-07-01] MEDS ORDERED: SERO200T PO (09:52)
[2017-07-01] MEDS ORDERED: APIX5TAB PO (09:52)
--- NOTE | 2017-07-01 10:02 | HHI.DS ---
Psychiatry Discharge Summary Inpatient Psychiatric care?: Yes Advance Directive: No Reason Not Provided: Due to Patient Condition Mental Health AdvanceDirective: No Health Care Proxy: No Admission Admission Date Jun 28, 2017 at 14:37 Admission Diagnosis: (1) Bipolar disorder ICD Code: F31.9 - Bipolar disorder, unspecified (2) Opiate dependence ICD Code: F11.20 - Opioid dependence, uncomplicated Brief History Patient is a 46-year-old woman, , domicile has been, since I with a past psychiatric history of bipolar disorder, anxiety disorder, opiate/ cocaine/heroine use disorder, no previous psychiatric hospitalizations, no previous suicide attempts, several Bansal acts for accidental overdoses and recent medications in the past was admitted to the medical floor for overdose on opiates, hypoxia, chronic anemia, and JARVIS who was seen by psychiatry consult team and put under Bansal act due to concern for elevated risk for self-harm due to recent behavior which she was transferred to the inpatient psychiatry for further evaluation and management. As per Dr. Cerrato notes: According to EMS the patient's found the patient in the bathroom, unconscious, apparently not breathing. The initiated CPR and called 911. When the police arrived they did CPR for several minutes until EMS arrived. EMS states when they arrived the patient had agonal respirations. They were unable to place an IV, however, were able to place an IO in the right lower extremity. EMS states the patient's initial blood sugar was 215 and they administered Narcan 2 mg through the IO. EMS states the patient's GCS went from 3 to 14. Upon arrival the patient was a GCS of 15. It was also noted in the chart: The patient states she is prescribed morphine extended release 30 mg 4 times a day for chronic pain. The patient states that she took apart and snorted 1 30 milligram tablet at approximately 8 PM. 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 Flores. The patient did complain of mild chest pain and shortness of breath, upon admission. The patient's history is significant for multiple admissions previously for substance overdose (Morphine) , last admission 03/2017. The patient also had previous medical history of admissions in the past of substance abuse with heroin and cocaine, patient has a history of PTSD and chronic pain syndrome secondary to a remote history of back surgery. Laboratory and imaging studies were performed in the ED, revealed normal lactic acid however a significant leukocytosis, and probable UTI , but also noted microscopic hematuria, and elevation in creatinine. The patient was placed on Rocephin. The patient's creatinine was noted to be elevated last evening. Upon discussion with the patient, the patient states she was admitted to [facility] on 06/12/17 and was admitted for urinary tract infection, patient signed out AMA on06/21/2017. Patient upon psychiatric consult follow-up denied recent overdose as a suicide attempt, to date previous visits to the hospital for overdoses. Patient was seen today with nurse and automobile and property underwriter found sitting in hospital bed, cooperative. Patient states that she did not intend to overdose and that he was due to her low blood pressure that she was found unconscious. It was explained to the patient is unlikely her blood pressure the cause her to have a low GCS score which she was revived with Narcan. Patient states that she has previous pain management provider but has stopped attending 3 months ago due to difficulty going to multiple appointments. Patient states that since she had been following only with her primary care doctor for her psychiatric medications as well as her pain management medications. Patient continued to deny having had previous incidence of overdoses but was reminded of her multiple visits and documented clinical presentation overdose on opiates. Discussion with the high probability of patient having addiction to opiate prescription medications as well as history of cocaine and heroine use was reviewed with patient which she reported interview acknowledged that she may have an addiction problem. Patient initially was resistant to needing a rehabilitation program stating that all she needs is a good psychiatrist but it was explained to the patient that she will require substance use intervention to address her addiction and to lower her chronic risk of accidental overdoses with her current use. Patient at this time denies SI, HI, AVH or delusions. Family psychiatric history: Denies Past psychiatric history: Previous diagnosis of bipolar disorder, anxiety disorder, polysubstance use disorder (opiates/heroine/cocaine), no previous psychiatric hospitalizations, no previous suicide attempts or self-injurious behavior, multiple previous Bansal act for accidental overdoses any some medications in the past. Patient has no current outpatient psychiatric provider. Current medications include carbamazepine 200 mg by mouth twice a day , Seroquel 200 mg at bedtime and gabapentin 600 mg by mouth twice a day. Substance use history: Cocaine use but states that her last use was over a year ago, remote history of heroin use, recent opioid prescription use for chronic pain, denies any previous rehabilitation or detox programs. Allergies: NKDA Past medical history: Spinal cord injury, diabetes. Has primary care doctor ( Dr. De Leon) Social history: Domiciled with , unemployed on SSI, born and raised in [place], highest education is 10th grade. Tobacco Use In Past 30 Days: No Tobacco Past 30 Days Alcohol Use: Never Hospital Course Patient is a 46-year-old woman, , domicile has been, since I with a past psychiatric history of bipolar disorder, anxiety disorder, opiate/ cocaine/heroine use disorder, no previous psychiatric hospitalizations, no previous suicide attempts, several Bansal acts for accidental overdoses and recent medications in the past was admitted to the medical floor for overdose on opiates, hypoxia, chronic anemia, and JARVIS who was seen by psychiatry consult team and put under Bansal act due to concern for elevated risk for self-harm due to recent behavior which she was transferred to the inpatient psychiatry for further evaluation and management. Patient was started on carbamazepine 200mg by mouth twice a day, quetiapine 200 mg by mouth at bedtime, gabapentin 600 mg by mouth twice a day and buspirone 7.5 mg by mouth twice a day as well as medications [facility] which she tolerated well with good effect. She continued on medical management for metabolic disturbances as well as for UTI and JARVIS with obstructive uropathy s/p RT nephrostomy tube as per primary medical team management. She was noted to have improvement of mood, was noted to be more optimistic, calm and cooperative with staff. Patient was noted to have improved insight into the dangerousness of her recent substance use and behavior and denied suicidal ideation stating that she never had intentional overdose. Upon discharge patient stated feeling good, stated feeling aware of the dangerousness of her recent overdose and agrees to rehabilitation program and was provided with the information for both inpatient and outpatient programs. She was advised, encouraged and recommended to engage in inpatient rehabilitation program but seemed resistant and was appearing to elect outpatient. She agreed to continuing medical recommendations, treatment and attend outpatient follow up appointments for continuity of care. Patient will be discharged back to her home. Patient; denies SI, HI, AVH or delusions. Supportive psychotherapy provided. Patient advised to call 911 or return back to the ED in case of any emergency. Patient agrees with plan. Results Blood Pressure 145 / 85 Vital Signs Date Time Temp Pulse Resp B/P (MAP) Pulse Ox O2 Delivery O2 Flow Rate FiO2 07/01/17 05:58 98.1 81 18 145/85 (105) 98 Laboratory Tests Test 06/29/17 07:20 Creatinine 1.39 MG/DL (0.50-1.00) Random Glucose 148 MG/DL (74-106) Estimat Glomerular Filtration Rate 41 ML/MIN (>89) LDL Cholesterol 114 MG/DL (0-99) Laboratory Results Test 06/29/17 07:20 Cholesterol Level 192 MG/DL (120-200) HDL Cholesterol 54.5 MG/DL (40.0-60.0) LDL Cholesterol 114 MG/DL (0-99) Triglycerides Level 117 MG/DL (42-150) Summary of Procedures None Pending results at discharge: No Medications # of Antipsychotic meds at D/C: 1 Approp Antipsych med options 1 - Minimum of three failed multiple trials of monotherapy. 2 - Documented plan to taper to monotherapy due to previous use of multiple meds OR cross-taper in progress at D/C. 3 - Documentation of augmentation of Clozapine. 4 - Justification other than those listed in allowable values 1-3, document here : Discharge Discharge Date: Jul 01, 2017 Discharge Diagnosis: (1) Bipolar disorder ICD Code: F31.9 - Bipolar disorder, unspecified (2) Opiate dependence ICD Code: F11.20 - Opioid dependence, uncomplicated Status: Acute Pt Condition on Discharge: Stable Discharge Disposition: Discharge Home Discharge Instructions Diet Instructions: Heart Healthy Diet Activities you can perform: Regular-No Restrictions Discharge Time > 30 minutes Mental Status Examination Appearance: Appropriate Consciousness: Alert Orientation: Person, Place, Date/Time Motor Activity: Normal gait Speech: Unremarkable Language: Adequate Fund of Knowledge: Adequate Attention and Concentration: Adequate Memory: Unremarkable Mood: Anxious Affect: Appropriate Thought Process & Associations: Intact, Goal directed, Linear Thought Content: Appropriate Hallucination Type: None Delusion Type: None Suicidal Ideation: No Suicidal Plan: No Suicidal Intention: No Homicidal Ideation: No Homicidal Plan: No Homicidal Intention: No Insight: Fair Judgment: Impulsive Discharge/Advance Care Plan Health Problems: (1) Bipolar disorder (2) Opiate dependence Goals to promote your health * To prevent worsening of your condition and complications * To maintain your health at the optimal level Directions to meet your goals Take your medications as prescribed Follow your dietary instruction Follow activity as directed Keep your appointments as scheduled Take your immunizations and boosters as scheduled If your symptoms worsen call your PCP, if no PCP go to Urgent Care Center or Emergency Room For 10/02 questions related to your inpatient stay or results of tests pending at discharge, please contact Dr. Marcell Doran at Smoking is Dangerous to Your Health. Avoid second hand smoking Marcell Doran MD Jul 01, 2017 10:01
[2017-07-01 10:33] LABS: AUTOMATED NEUTROPHIL # 5.7 TH/MM3 (1.8-7.7); BASOPHIL # 0.2 TH/MM3 (0-0.2); BASOPHIL % 2.5 % (0.0-2.0); EOSINOPHIL # 0.3 TH/MM3 (0-0.4); EOSINOPHIL % 3.7 % (0.0-4.0); HEMATOCRIT 29.4 % (35.0-46.0); HEMO FLAGS DIFF FINAL; LYMPH % 21.7 % (9.0-44.0); MEAN CELL VOLUME 93.1 FL (80.0-100.0); MEAN CORPUSCULAR HEMOGLOBIN 30.6 PG (27.0-34.0); MEAN CORPUSCULAR HGB CONC 32.9 % (32.0-36.0); NEUT % 63.1 % (16.0-70.0); PLATELET COUNT 480 TH/MM3 (150-450); RED BLOOD COUNT 3.16 MIL/MM3 (4.00-5.30); RED CELL DISTRIBUTION WIDTH 14.9 % (11.6-17.2); WHITE BLOOD COUNT 9.1 TH/MM3 (4.0-11.0)
--- NOTE | 2017-07-01 10:36 | HHI.PR ---
Subjective Remarks had right nephrostomy for past 1 week or so no blood anywhere Objective Vital Signs Date Time Temp Pulse Resp B/P (MAP) Pulse Ox O2 Delivery O2 Flow Rate FiO2 07/01/17 05:58 98.1 81 18 145/85 (105) 98 06/30/17 18:00 98.3 86 17 129/69 (89) 98 06/30/17 14:52 15 06/30/17 11:26 16 I/O 06/30/17 06/30/17 06/30/17 07/01/17 07/01/17 07/01/17 07:00 15:00 23:00 07:00 15:00 23:00 Intake Total 1800 ml 960 ml 600 ml 360 ml 240 ml Output Total 1000 ml 600 ml 500 ml Balance 1800 ml -40 ml 0 ml -140 ml 240 ml Intake Oral 1800 ml 960 ml 600 ml 360 ml 240 ml Output Urine Total 1000 ml 600 ml 500 ml # Voids 5 1 Result Diagram: 06/29/17 0720 A/P Assessment and Plan call IR to have nephrostomy care plan IR nurse to show pt and CM to arrange [facility] outpt appointment to dr valdez, and IR hypoglycemic episodes- takes lantus 30units in am, 20units in pm with SSI- here only on SSI, with levemir 15units bid so will dc with same regimen PCP appointment in 3 days measure BS at home qac and qhs, write it down, show to PCP find out from psychiatrist regarding prazosin dc gabenptin high dose- keep 400mg tid r lung tumor and duodenum- follow up with Karen Low MD Jul 01, 2017 10:36
[2017-07-01 10:54] LABS: ALT (GPT) 18 U/L (10-53); ANION GAP 7 MEQ/L (5-15); AST (GOT) 25 U/L (15-37); BICARBONATE 26.5 MEQ/L (21.0-32.0); BLOOD UREA NITROGEN 21 MG/DL (7-18); CHLORIDE 97 MEQ/L (98-107); GLOMERULAR FILTRATION RATE 40 ML/MIN (>89); POTASSIUM 4.9 MEQ/L (3.5-5.1); SODIUM (NA) 130 MEQ/L (136-145)
[2017-07-01 11:01] LABS: ALKALINE PHOSPHATASE 515 U/L (45-117); TOTAL BILIRUBIN ADULT 0.2 MG/DL (0.2-1.0)
[2017-07-01] MEDS ORDERED: LEVEMIR SQ (13:02)
== END 2017-07-01 14:10 | disposition home or self-care (01) | DRG 885 ==
LOC: H4EA 14:21 → UNDOADMIN 14:21 → H4EA 14:37
PROVIDERS: ADMIT Student in an Organized Health Care Education/Training Program; ATTEND Student in an Organized Health Care Education/Training Program
DX: F31.9 Bipolar disorder, unspecified (principal); E11.43 Type 2 diabetes mellitus with diabetic autonomic (poly)neuropathy; K31.84 Gastroparesis; F11.20 Opioid dependence, uncomplicated; E11.65 Type 2 diabetes mellitus with hyperglycemia; D64.9 Anemia, unspecified; D49.1 Neoplasm of unspecified behavior of respiratory system; F43.10 Post-traumatic stress disorder, unspecified; G89.4 Chronic pain syndrome; Z86.718 Personal history of other venous thrombosis and embolism; Z79.4 Long term (current) use of insulin; M17.0 Bilateral primary osteoarthritis of knee; G40.909 Epilepsy, unspecified, not intractable, without status epilepticus; Z79.01 Long term (current) use of anticoagulants
CPT/HCPCS: 80048; 80053; 80061; 82948; 85025; J1815; Q0163

== ENCOUNTER 2017-07-11 22:27 | Inpatient (IN) | payer MEDICAID, OTHER ==
[~2017-07-11] VITALS: Ht 165.1 cm; Wt 65.9 kg
[~2017-07-11 22:27] MED LIST changes: -ALPR2TAB3 PO; +BUSP1TAB PO; -GABA800T PO; -HUMA100I3 SQ; -HUMALOG SQ; -HYDR4TAB PO; -LANTUS2P SQ; +NEUR400C PO; +PERI PO; -PRAZ1CAP PO; -ROPI2 PO; -SOMA350T PO
[2017-07-11] MEDS ORDERED: LANTUS2P SQ ×2 (22:55)
[2017-07-11 22:56] VITALS: BP 157/77; PULSE 102; RESP 16; TEMP 98.2; O2SAT 98
[2017-07-11] MEDS ORDERED: SODIUM CHLORIDE 0.9% FLUSH 10 ML FLUSH IV FLUSH PRN (23:15)
[2017-07-11] MEDS ORDERED: SODIUM CHLOR 0.9% 1000 ML INJ 1,000 ML IV ONE (23:15)
[2017-07-11] MEDS ORDERED: ONDANSETRON HCL 4 MG/2 ML VIAL IV PUSH ONE (23:15)
--- NOTE | 2017-07-11 23:20 | PD ---
HPI Chief Complaint: Psychiatric Symptoms Time Seen by Provider: 23:02 Travel History International Travel<30 days: No Contact w/Intl Traveler<30days: No Traveled to known affect area: No History of Present Illness HPI 46-year-old female with history of bipolar disorder, CKD, obstructive uropathy on the right with right nephrostomy tube placed earlier this month while admitted to the hospital, opiate dependence, diabetes, brought in by PD under Bansal act. According to the Bansal Act the patient has been in bed for 2 days and has not had anything to eat or drink. Apparently her catheter is also no longer draining. She has been laying in urine as well. Apparently 911 was called by the patient's who is concerned about the patient's health. She reports that she has had nausea and vomiting for the last couple of days and is having generalized weakness. She denies fevers. She is having some mild abdominal cramping with vomiting. Denies suicidal or homicidal ideation. PFSH Past Medical History Arthritis: Yes (rheumatoid arthritis) Asthma: No Autoimmune Disease: No Blood Disorders: No Anxiety: Yes Depression: No Heart Rhythm Problems: No Cancer: No Cardiovascular Problems: No High Cholesterol: No Chemotherapy: No Chest Pain: No Congestive Heart Failure: No COPD: No Cerebrovascular Accident: No Diabetes: Yes Patient Takes Glucophage: No Diminished Hearing: No Deep Vein Thrombosis: Yes (BILATERAL ARMS) Endocrine: Yes Gastrointestinal Disorders: Yes (gastroparesis takes zofran ) GERD: No Genitourinary: Yes Hiatal Hernia: Yes (and esophogeal tear) Immune Disorder: No Kidney Stones: No Musculoskeletal: Yes Neurologic: No Psychiatric: Yes (PTSD) Respiratory: No Immunizations Current: No Migraines: No Myocardial Infarction: No Radiation Therapy: No Renal Failure: Yes (JARVIS) Seizures: No Sickle Cell Disease: No Sleep Apnea: No Thyroid Disease: No Ulcer: No ?: Not : 3 Para: 3 Tubal Ligation: Yes Past Surgical History Abdominal Surgery: Yes (gall bladder removal) AICD: No Arteriovenous Shunt: No Cardiac Surgery: No Ear Surgery: No Endocrine Surgery: No Eye Surgery: No Genitourinary Surgery: Yes (nephrostomy tube placement) Gynecologic Surgery: Yes (ovarian cysts) Insulin Pump: No Joint Replacement: No Oral Surgery: No Pacemaker: No Thoracic Surgery: No Other Surgery: Yes Social History Alcohol Use: No Tobacco Use: No Substance Use: No Allergies-Medications (Allergen,Severity, Reaction): Coded Allergies: ketorolac (Unverified Allergy, Severe, Anaphylaxis, 07/11/17) Reported Meds & Prescriptions Reported Meds & Active Scripts Active Gnp Senna Plus 8.6-50 mg (Sennosides-Docusate Sodium) 8.6 Mg-50 Mg Tab 1 Tab PO BID 30 Days Neurontin (Gabapentin) 400 Mg Cap 400 Mg PO TID 30 Days Eliquis (Apixaban) 5 Mg Tab 5 Mg PO BID 30 Days Tegretol (Carbamazepine) 200 Mg Tab 200 Mg PO BID 30 Days Seroquel (Quetiapine Fumarate) 200 Mg Tab 200 Mg PO HS 30 Days Novolog Inj (Insulin Aspart) 100 Unit/Ml Inj 1 Units SQ ACHS SLIDING SCALE 30 Days as diretcted Reported Lantus Inj (Insulin Glargine) 1,000 Unit/10 Ml Vial 30 Units SQ DAILY AM Lantus Inj (Insulin Glargine) 1,000 Unit/10 Ml Vial 20 Units SQ HS Review of Systems Except as stated in HPI: all other systems reviewed are Neg Physical Exam Narrative GENERAL: Well-developed, cachectic appearing, laying on side, no apparent distress, smells of urine. SKIN: Focused skin assessment warm/dry. No rashes. Scarring to the left forearm which the patient states is from necrotizing fasciitis from years ago. HEAD: Atraumatic. Normocephalic. EYES: Pupils equal and round. No scleral icterus. No injection or drainage. ENT: No nasal bleeding or discharge. Mucous membranes pink and moist. NECK: Trachea midline. No JVD. CARDIOVASCULAR: Regular rate and rhythm. RESPIRATORY: No accessory muscle use. Clear to auscultation. Breath sounds equal bilaterally. GASTROINTESTINAL: Abdomen soft, non-tender, nondistended. Hepatic and splenic margins not palpable. : Right nephrostomy tube with site clean, dry, intact, no erythema, with minimal amount of clear/yellow urine in the bag. MUSCULOSKELETAL: No obvious deformities. No clubbing. No cyanosis. No edema. NEUROLOGICAL: Awake and alert. No obvious cranial nerve deficits. Motor grossly within normal limits. Normal speech. PSYCHIATRIC: Appropriate mood and affect; insight and judgment normal. Data Data Last Documented VS Vital Signs Date Time Temp Pulse Resp B/P (MAP) Pulse Ox O2 Delivery O2 Flow Rate FiO2 07/11/17 22:56 98.2 102 16 157/77 (103) 98 Room Air Orders Orders Complete Blood Count With Diff (07/11/17 23:13) Comprehensive Metabolic Panel (07/11/17 23:13) Prothrombin Time / Inr (Pt) (07/11/17 23:13) Act Partial Throm Time (Ptt) (07/11/17 23:13) Urinalysis - C+S If Indicated (07/11/17 23:13) Iv Access Insert/Monitor (07/11/17 23:13) Ecg Monitoring (07/11/17 23:13) Oximetry (07/11/17 23:13) Sodium Chloride 0.9% Flush (Ns Flush) (07/11/17 23:15) Electrocardiogram (07/11/17 23:13) Drug Screen, Random Urine (07/11/17 23:13) Alcohol (Ethanol) (07/11/17 23:13) Salicylates (Aspirin) (07/11/17 23:13) Tylenol (Acetaminophen) (07/11/17 23:13) Ondansetron Inj (Zofran Inj) (07/11/17 23:15) Sodium Chlor 0.9% 1000 Ml Inj (Ns 1000 M (07/11/17 23:15) Chest, Single Ap (07/11/17 ) Urine Culture (07/11/17 23:30) Lactic Acid Sepsis Protocol (07/12/17 00:10) Blood Culture (07/12/17 00:10) Ceftriaxone Inj (Rocephin Inj) (07/12/17 00:15) Morphine Inj (Morphine Inj) (07/12/17 01:30) Ckmb (Isoenzyme) Profile (07/12/17 01:28) Troponin I (07/12/17 01:28) Ct Abd/Pel W/O Iv Contrast (07/12/17 01:28) Labs Laboratory Tests Test 07/11/17 23:30 07/12/17 00:16 07/12/17 01:20 Urine Color YELLOW Urine Turbidity CLOUDY Urine pH 6.5 Urine Specific [place] 1.012 Urine Protein 100 mg/dL Urine Glucose (UA) 1000 mg/dL Urine Ketones 10 mg/dL Urine Occult Blood MOD Urine Nitrite NEG Urine Bilirubin NEG Urine Urobilinogen LESS THAN 2.0 MG/DL Urine Leukocyte Esterase LARGE Urine RBC 46 /hpf Urine WBC /hpf Urine WBC Clumps MANY Urine Bacteria MOD /hpf Urine Mucus FEW /lpf Microscopic Urinalysis Comment CULTURE INDICATED Urine Opiates Screen POS Urine Barbiturates Screen NEG Urine Amphetamines Screen NEG Urine Benzodiazepines Screen POS Urine Cocaine Screen NEG Urine Cannabinoids Screen NEG White Blood Count 19.9 TH/MM3 Red Blood Count 2.79 MIL/MM3 Hemoglobin 8.7 GM/DL Hematocrit 26.0 % Mean Corpuscular Volume 93.3 FL Mean Corpuscular Hemoglobin 31.3 PG Mean Corpuscular Hemoglobin Concent 33.6 % Red Cell Distribution Width 17.0 % Platelet Count 391 TH/MM3 Mean Platelet Volume 9.3 FL Neutrophils (%) (Auto) 91.1 % Lymphocytes (%) (Auto) 4.7 % Monocytes (%) (Auto) 3.4 % Eosinophils (%) (Auto) 0.1 % Basophils (%) (Auto) 0.7 % Neutrophils # (Auto) 18.1 TH/MM3 Lymphocytes # (Auto) 0.9 TH/MM3 Monocytes # (Auto) 0.7 TH/MM3 Eosinophils # (Auto) 0.0 TH/MM3 Basophils # (Auto) 0.1 TH/MM3 CBC Comment DIFF FINAL Differential Comment Blood Urea Nitrogen 46 MG/DL Creatinine 1.58 MG/DL Random Glucose 242 MG/DL Total Protein 8.4 GM/DL Albumin 2.6 GM/DL Calcium Level 9.0 MG/DL Alkaline Phosphatase 945 U/L Aspartate Amino Transf (AST/SGOT) 21 U/L Alanine Aminotransferase (ALT/SGPT) 65 U/L Total Bilirubin 0.5 MG/DL Sodium Level 132 MEQ/L Potassium Level 4.1 MEQ/L Chloride Level 96 MEQ/L Carbon Dioxide Level 22.1 MEQ/L Anion Gap 14 MEQ/L Estimat Glomerular Filtration Rate 35 ML/MIN Lactic Acid Level 1.0 mmol/L Salicylates Level LESS THAN 1.7 MG/DL Acetaminophen Level LESS THAN 2.0 MCG/ML Ethyl Alcohol Level LESS THAN 3 MG/DL [facility] Medical Decision Making Medical Screen Exam Complete: Yes Emergency Medical Condition: Yes Interpretation(s) EKG: Sinus tachycardia, rate 103, normal axis, short MI interval, no acute ischemic abnormality. Differential Diagnosis Sepsis, UTI, pneumonia, dehydration, metabolic abnormality, failure to thrive Narrative Course Initial vital signs show heart rate 102, blood pressure 157/77, pulse ox 98% on room air, oral temp of 98.2F. CBC: WBC 19.9, hemoglobin 8.7, hematocrit 26, platelets 391, neutrophils 91%. Patient has baseline anemia. CMP is remarkable for BUN 46, creatinine 1.58, GFR 35 which is slightly worse than her baseline. Random glucose is 242. Alkaline phosphatase is 945. Chest x-ray: No acute disease. UA is grossly positive for UTI. Patient was given a dose of IV Rocephin. While in the emergency department she began complaining of abdominal cramping as well as some cramping sensation in her chest. She believes that this is from vomiting. She also believes that her nephrostomy tube may be dislodged. For the CT abdomen pelvis will be ordered. EKG shows no signs of ischemia. Cardiac enzymes will also be added. At approximately 1:30 AM at the end of my shift the patient was signed out to my PA Guy brought her to follow up with CT abdomen pelvis, cardiac enzymes, and have the patient admitted to the medical service after these are resulted. Diagnosis Primary Impression: Sepsis Qualified Codes: A41.9 - Sepsis, unspecified organism Additional Impressions: UTI (urinary tract infection) Qualified Codes: N39.0 - Urinary tract infection, site not specified; R31.9 - Hematuria, unspecified Alteration in self-care ability Hyperglycemia Admitting Information Admitting Physician Requests: Admit Estevan España MD Jul 11, 2017 23:20
[2017-07-12] VITALS (7 sets, daily range): BP systolic 113–138; BP diastolic 58–85; PULSE 79–98; RESP 16–18; TEMP 98–98.8; O2SAT 94–99
[2017-07-12 00:03] LABS: BACTERIA, URINE MOD /hpf; BILIRUBIN, URINE NEG (NEG); BLOOD, URINE MOD (NEG); GLUCOSE,URINE 1000 mg/dL (NEG); KETONE, URINE 10 mg/dL (NEG); MUCUS URINE FEW /lpf (OCC); NITRITE,URINE NEG (NEG); PH, URINE 6.5 (5.0-8.5); URINE COLOR YELLOW (YELLW/STRAW); URINE LEUKOCYTE ESTERASE LARGE (NEG); WHITE BLOOD CELL CLUMPS MANY
[2017-07-12] MEDS ORDERED: cefTRIAXone INJ 1,000 MG in SODIUM CHLORIDE 0.9% INJ 100 ML IV ONE (00:15)
--- NOTE | 2017-07-12 00:15 | RADRPT ---
EXAM DATE/TIME: 07/11/2017 23:31 [facility] COMPARISON: CHEST SINGLE AP, June 23, 2017, 6:01. INDICATIONS : Shortness of breath. MEDICAL HISTORY : Myocardial infarction. Diabetes mellitus type II. SURGICAL HISTORY : None. ENCOUNTER: Initial ACUITY: 1 day PAIN SCORE: 0/10 LOCATION: Bilateral chest FINDINGS: A single view of the chest demonstrates the lungs to be symmetrically aerated without evidence of mas s, infiltrate or effusion. The cardiomediastinal contours are unremarkable. Osseous structures are intact. CONCLUSION: No acute disease. Bill Spear MD on July 12, 2017 at 0:12 Board Certified Radiologist. This report was verified electronically.
[2017-07-12 00:39] LABS: AUTOMATED NEUTROPHIL # 18.1 TH/MM3 (1.8-7.7); BASOPHIL # 0.1 TH/MM3 (0-0.2); BASOPHIL % 0.7 % (0.0-2.0); EOSINOPHIL % 0.1 % (0.0-4.0); HEMOGLOBIN 8.7 GM/DL (11.6-15.3); LYMPH % 4.7 % (9.0-44.0); LYMPHOCYTE # 0.9 TH/MM3 (1.0-4.8); MEAN CELL VOLUME 93.3 FL (80.0-100.0); MEAN CORPUSCULAR HEMOGLOBIN 31.3 PG (27.0-34.0); MEAN CORPUSCULAR HGB CONC 33.6 % (32.0-36.0); MEAN PLATELET VOLUME 9.3 FL (7.0-11.0); MONO % 3.4 % (0.0-8.0); MONOCYTE # 0.7 TH/MM3 (0-0.9); NEUT % 91.1 % (16.0-70.0); PLATELET COUNT 391 TH/MM3 (150-450); RED BLOOD COUNT 2.79 MIL/MM3 (4.00-5.30); WHITE BLOOD COUNT 19.9 TH/MM3 (4.0-11.0)
[2017-07-12 01:17] LABS: ALBUMIN 2.6 GM/DL (3.4-5.0); ALT (GPT) 65 U/L (10-53); AST (GOT) 21 U/L (15-37); BICARBONATE 22.1 MEQ/L (21.0-32.0); BLOOD UREA NITROGEN 46 MG/DL (7-18); CHLORIDE 96 MEQ/L (98-107); CREATININE 1.58 MG/DL (0.50-1.00); GLOMERULAR FILTRATION RATE 35 ML/MIN (>89); GLUCOSE,RANDOM 242 MG/DL (74-106); SODIUM (NA) 132 MEQ/L (136-145)
[2017-07-12 01:21] LABS: ACETAMINOPHEN LESS THAN 2.0 MCG/ML (10.0-30.0)
[2017-07-12 01:29] LABS: ALKALINE PHOSPHATASE 945 U/L (45-117); TOTAL BILIRUBIN ADULT 0.5 MG/DL (0.2-1.0); TOTAL PROTEIN 8.4 GM/DL (6.4-8.2)
[2017-07-12] MEDS ORDERED: MORPHINE SULFATE 2 MG/ML INJ IV PUSH ONE (01:30)
[2017-07-12] MEDS ORDERED: SODIUM CHLOR 0.9% 1000 ML INJ 1,000 ML IV ONE (01:45)
[2017-07-12 01:55] LABS: TROPONIN I 0.03 NG/ML (0.02-0.05)
[2017-07-12 01:59] LABS: INTERNATIONAL NORMALIZED RATIO 1.6 RATIO; PROTHROMBIN TIME - PATIENT 15.9 SEC (9.8-11.6)
--- NOTE | 2017-07-12 03:55 | RADRPT ---
EXAM DATE/TIME: 07/12/2017 03:21 [facility] COMPARISON: CT ABDOMEN & PELVIS W/O CONTRAST, June 23, 2017, 9:03. NEPHROURETERAL CATHETER, RIGHT, June 24, 2017, 11:39. INDICATIONS : Abdominal pain with vomiting. ORAL CONTRAST: No oral contrast ingested. RADIATION DOSE: 6.10 CTDIvol (mGy) MEDICAL HISTORY : Diabetes mellitus type 2. Renal failure, acute. SURGICAL HISTORY : Cholecystectomy. Tubal ligation.Nephromostomy tube. ENCOUNTER: Initial ACUITY: 2 weeks PAIN SCALE: 7/10 LOCATION: Bilateral abdomen TECHNIQUE: Volumetric scanning of the abdomen and pelvis was performed. Using automated exposure control and ad justment of the mA and/or kV according to patient size, radiation dose was kept as low as reasonably achievable to obtain optimal diagnostic quality images. DICOM format image data is available electro nically for review and comparison. FINDINGS: The patient's right-sided nephroureteral catheter is almost completely out with the bladder loop coil ed in the subcutaneous tissues of the right flank region and the remaining portion of the tube includ ing the renal pelvic loop external to the patient. There is mild scarring or atelectasis in the lung bases. Within the abdomen, the liver, spleen, pancreas and adrenals are grossly unremarkable for noncontrast . The gallbladder surgically absent. Kidneys are symmetric and unremarkable. The bowel structures are nondilated. In the pelvis, bladder is minimally distended. No adnexal mass or free fluid is identified. Lobular densities in the left para-aortic location in the mid to lower abdomen may be vessels or enla rged lymph nodes. Contrast exam is suggested for further assessment if clinically indicated. The inguinal regions are clear urine bony structures are grossly intact. CONCLUSION: The patient's right nephroureteral catheter is almost completely out. No evidence of recurrent hydronephrosis at present and otherwise grossly stable nonspecific noncontra st appearance of the abdomen and pelvis Bill Spear MD on July 12, 2017 at 3:42 Board Certified Radiologist. This report was verified electronically.
[2017-07-12] MEDS: SODIUM CHLOR 0.9% 1000 ML INJ 1,000 ML IV SCH ×2 (04:09→19:43)
[2017-07-12] MEDS ORDERED: LACTULOSE SYRUP 20 GM/30 ML CUP PO PRN (04:15)
[2017-07-12] MEDS ORDERED: BISACODYL 10 MG SUPP RECTAL PRN (04:15)
[2017-07-12] MEDS ORDERED: MAGNESIUM HYDROXIDE SUSP 30 ML CUP PO PRN (04:15)
[2017-07-12] MEDS ORDERED: GLUCAGON 1 MG/ML VIAL OTHER PRN (04:15)
[2017-07-12] MEDS ORDERED: ACETAMINOPHEN/HYDROcodone 325 MG/5 MG TAB PO PRN (04:15)
[2017-07-12] MEDS ORDERED: ONDANSETRON HCL 4 MG/2 ML VIAL IVP PRN (04:15)
[2017-07-12] MEDS ORDERED: ACETAMINOPHEN 325 MG TAB PO PRN (04:15)
[2017-07-12] MEDS ORDERED: SODIUM CHLORIDE 0.9% FLUSH 10 ML FLUSH IV FLUSH PRN (04:15)
[2017-07-12] MEDS ORDERED: DEXTROSE 50% IN WATER 50 ML VIAL(D50) IV PUSH PRN (04:15)
[2017-07-12] MEDS ORDERED: SENNOSIDES 8.6 MG TAB PO PRN (04:15)
--- NOTE | 2017-07-12 04:16 | PD ---
Physical Exam Time Seen by Provider: 04:05 Data Data Last Documented VS Vital Signs Date Time Temp Pulse Resp B/P (MAP) Pulse Ox O2 Delivery O2 Flow Rate FiO2 07/11/17 22:56 98.2 102 16 157/77 (103) 98 Room Air Orders Orders Complete Blood Count With Diff (07/11/17 23:13) Comprehensive Metabolic Panel (07/11/17 23:13) Prothrombin Time / Inr (Pt) (07/11/17 23:13) Act Partial Throm Time (Ptt) (07/11/17 23:13) Urinalysis - C+S If Indicated (07/11/17 23:13) Iv Access Insert/Monitor (07/11/17 23:13) Ecg Monitoring (07/11/17 23:13) Oximetry (07/11/17 23:13) Sodium Chloride 0.9% Flush (Ns Flush) (07/11/17 23:15) Electrocardiogram (07/11/17 23:13) Drug Screen, Random Urine (07/11/17 23:13) Alcohol (Ethanol) (07/11/17 23:13) Salicylates (Aspirin) (07/11/17 23:13) Tylenol (Acetaminophen) (07/11/17 23:13) Ondansetron Inj (Zofran Inj) (07/11/17 23:15) Sodium Chlor 0.9% 1000 Ml Inj (Ns 1000 M (07/11/17 23:15) Chest, Single Ap (07/11/17 ) Urine Culture (07/11/17 23:30) Lactic Acid Sepsis Protocol (07/12/17 00:10) Blood Culture (07/12/17 00:10) Ceftriaxone Inj (Rocephin Inj) (07/12/17 00:15) Morphine Inj (Morphine Inj) (07/12/17 01:30) Ckmb (Isoenzyme) Profile (07/12/17 01:28) Troponin I (07/12/17 01:28) Ct Abd/Pel W/O Iv Contrast (07/12/17 01:28) Sodium Chlor 0.9% 1000 Ml Inj (Ns 1000 M (07/12/17 01:45) Admit Order (Ed Use Only) (07/12/17 04:05) Labs Laboratory Tests Test 07/11/17 23:30 07/12/17 00:16 07/12/17 01:20 Urine Color YELLOW Urine Turbidity CLOUDY Urine pH 6.5 Urine Specific [place] 1.012 Urine Protein 100 mg/dL Urine Glucose (UA) 1000 mg/dL Urine Ketones 10 mg/dL Urine Occult Blood MOD Urine Nitrite NEG Urine Bilirubin NEG Urine Urobilinogen LESS THAN 2.0 MG/DL Urine Leukocyte Esterase LARGE Urine RBC 46 /hpf Urine WBC /hpf Urine WBC Clumps MANY Urine Bacteria MOD /hpf Urine Mucus FEW /lpf Microscopic Urinalysis Comment CULTURE INDICATED Urine Opiates Screen POS Urine Barbiturates Screen NEG Urine Amphetamines Screen NEG Urine Benzodiazepines Screen POS Urine Cocaine Screen NEG Urine Cannabinoids Screen NEG White Blood Count 19.9 TH/MM3 Red Blood Count 2.79 MIL/MM3 Hemoglobin 8.7 GM/DL Hematocrit 26.0 % Mean Corpuscular Volume 93.3 FL Mean Corpuscular Hemoglobin 31.3 PG Mean Corpuscular Hemoglobin Concent 33.6 % Red Cell Distribution Width 17.0 % Platelet Count 391 TH/MM3 Mean Platelet Volume 9.3 FL Neutrophils (%) (Auto) 91.1 % Lymphocytes (%) (Auto) 4.7 % Monocytes (%) (Auto) 3.4 % Eosinophils (%) (Auto) 0.1 % Basophils (%) (Auto) 0.7 % Neutrophils # (Auto) 18.1 TH/MM3 Lymphocytes # (Auto) 0.9 TH/MM3 Monocytes # (Auto) 0.7 TH/MM3 Eosinophils # (Auto) 0.0 TH/MM3 Basophils # (Auto) 0.1 TH/MM3 CBC Comment DIFF FINAL Differential Comment Blood Urea Nitrogen 46 MG/DL Creatinine 1.58 MG/DL Random Glucose 242 MG/DL Total Protein 8.4 GM/DL Albumin 2.6 GM/DL Calcium Level 9.0 MG/DL Alkaline Phosphatase 945 U/L Aspartate Amino Transf (AST/SGOT) 21 U/L Alanine Aminotransferase (ALT/SGPT) 65 U/L Total Bilirubin 0.5 MG/DL Sodium Level 132 MEQ/L Potassium Level 4.1 MEQ/L Chloride Level 96 MEQ/L Carbon Dioxide Level 22.1 MEQ/L Anion Gap 14 MEQ/L Estimat Glomerular Filtration Rate 35 ML/MIN Lactic Acid Level 1.0 mmol/L Total Creatine Kinase 36 U/L Troponin I 0.03 NG/ML Salicylates Level LESS THAN 1.7 MG/DL Acetaminophen Level LESS THAN 2.0 MCG/ML Ethyl Alcohol Level LESS THAN 3 MG/DL Prothrombin Time 15.9 SEC Prothromb Time International Ratio 1.6 RATIO Activated Partial Thromboplast Time 40.4 SEC [facility] Medical Record Reviewed: Yes Supervised Visit with VINCENT: No Narrative Course This patient was signed out to me pending CT results and cardiac enzymes. Please see previous providers notes. CT of the abdomen and pelvis reveals: CONCLUSION: The patient's right nephroureteral catheter is almost completely out. No evidence of recurrent hydronephrosis at present and otherwise grossly stable nonspecific noncontrast appearance of the abdomen and pelvis Discussed with Dr. Nunez who is agreeable with admission. IR will be consulted. Diagnosis Primary Impression: Sepsis Qualified Codes: A41.9 - Sepsis, unspecified organism Additional Impressions: Alteration in self-care ability Hyperglycemia UTI (urinary tract infection) Qualified Codes: N39.0 - Urinary tract infection, site not specified; R31.9 - Hematuria, unspecified Admitting Information Admitting Physician Requests: Guy Rodriguez Jul 12, 2017 04:16
--- NOTE | 2017-07-12 04:39 | HHI.HP ---
[facility] Service [facility] Primary Care Physician Sukumar Logan MD Admission Diagnosis sepsis, UTI, malfunctioning nephrostomy tube Diagnoses: (1) Sepsis Diagnosis: Principal (2) UTI (urinary tract infection) Diagnosis: Principal (3) Nephrostomy tube displaced Diagnosis: Principal (4) JARVIS (acute kidney injury) Diagnosis: Principal (5) Bipolar disorder Diagnosis: Principal (6) Opiate dependence (7) DM (diabetes mellitus) Diagnosis: Principal Travel History International Travel<30 Days: No Contact w/Intl Traveler <30 Da: No Traveled to Known Affected Are: No History of Present Illness This is a 46-year-old female with a PMH of Bipolar Disorder, Anxiety, Depression , DM, Opioid Dependence and Obstructive Uropathy s/p Nephrostomy Tube who was brought to the ER by secondary to generalized weakness, nausea/vomiting and incontinence. reports pt has been unable to get out of bed, + urinating on herself, Nephrostomy doesn't appear to be draining. Recent admit 06/23-06/28/17 for Opiate OD under [place], found to have JARVIS w/ Obstructive Uropathy of unknown etiology and UTI, s/p Right Nephrostomy Tube placement and completion of IV Abx. D/c'd to Inpatient Psych, then d/c'd home 07/01/17. Now w/ worsening symptoms. On arrival, BP 157/77, HR 102, O2 sat 98% on RA, Afebrile. WBC 19.9. Creatinine 1.58, previously 1.40 on 07/01/17. INR 1.6. UA positive for UTI. Alcohol negative. Urine Drug Screen positive for Benzo and Opiates. CXR with no acute findings. CT Abd/Pelvis w/ right nephrostomy tube almost completely out, no evidence of recurrent hydronephrosis. S/p Blood/ Urine Cultures and Rocephin IV in ER Review of Systems Except as stated in HPI: all other systems reviewed are Neg ROS: 14 point review of systems otherwise negative. Past Family Social History Past Medical History PMH: Bipolar Disorder, Anxiety, Depression, DM, Opioid Dependence and Obstructive Uropathy s/p Nephrostomy Tube Past Surgical History PAST SURGICAL HISTORY: Cholecystectomy, Nephrostomy Tube Allergies: Coded Allergies: ketorolac (Unverified Allergy, Severe, Anaphylaxis, 07/11/17) Family History PAST FAMILY HISTORY: Reviewed. No h/o DM or CAD Social History PAST SOCIAL HISTORY: Negative for alcohol or tobacco. +Narcotic dependence. Physical Exam Vital Signs Vital Signs Date Time Temp Pulse Resp B/P (MAP) Pulse Ox O2 Delivery O2 Flow Rate FiO2 07/11/17 22:56 98.2 102 16 157/77 (103) 98 Room Air Physical Exam PE: GENERAL: Middle-aged female in no acute distress. HEENT: PERRLA, EOMI. No scleral icterus or conjunctival pallor. No lid lag or facial droop. CARDIOVASCULAR: Regular rate and rhythm. No obvious murmurs to auscultation. No chest tenderness to palpation. RESPIRATORY: No obvious rhonchi or wheezing. Clear to auscultation. Breath sounds equal bilaterally. GASTROINTESTINAL: Abdomen soft, non-tender, nondistended. BS normal. MUSCULOSKELETAL: Extremities without clubbing, cyanosis, or edema. No obvious deformities. Right nephrostomy tube, no surrounding erythema, urine bag NEUROLOGICAL: Awake, alert and oriented x4. No focal neurologic deficits. Moving both upper and lower extremities spontaneously. Laboratory Laboratory Tests Test 07/11/17 23:30 07/12/17 00:16 07/12/17 01:20 Urine Color YELLOW Urine Turbidity CLOUDY Urine pH 6.5 Urine Specific [place] 1.012 Urine Protein 100 Urine Glucose (UA) 1000 Urine Ketones 10 Urine Occult Blood MOD Urine Nitrite NEG Urine Bilirubin NEG Urine Urobilinogen LESS THAN 2.0 Urine Leukocyte Esterase LARGE Urine RBC 46 Urine WBC Urine WBC Clumps MANY Urine Bacteria MOD Urine Mucus FEW Microscopic Urinalysis Comment CULTURE INDICATED Urine Opiates Screen POS Urine Barbiturates Screen NEG Urine Amphetamines Screen NEG Urine Benzodiazepines Screen POS Urine Cocaine Screen NEG Urine Cannabinoids Screen NEG White Blood Count 19.9 Red Blood Count 2.79 Hemoglobin 8.7 Hematocrit 26.0 Mean Corpuscular Volume 93.3 Mean Corpuscular Hemoglobin 31.3 Mean Corpuscular Hemoglobin Concent 33.6 Red Cell Distribution Width 17.0 Platelet Count 391 Mean Platelet Volume 9.3 Neutrophils (%) (Auto) 91.1 Lymphocytes (%) (Auto) 4.7 Monocytes (%) (Auto) 3.4 Eosinophils (%) (Auto) 0.1 Basophils (%) (Auto) 0.7 Neutrophils # (Auto) 18.1 Lymphocytes # (Auto) 0.9 Monocytes # (Auto) 0.7 Eosinophils # (Auto) 0.0 Basophils # (Auto) 0.1 CBC Comment DIFF FINAL Differential Comment Blood Urea Nitrogen 46 Creatinine 1.58 Random Glucose 242 Total Protein 8.4 Albumin 2.6 Calcium Level 9.0 Alkaline Phosphatase 945 Aspartate Amino Transf (AST/SGOT) 21 Alanine Aminotransferase (ALT/SGPT) 65 Total Bilirubin 0.5 Sodium Level 132 Potassium Level 4.1 Chloride Level 96 Carbon Dioxide Level 22.1 Anion Gap 14 Estimat Glomerular Filtration Rate 35 Lactic Acid Level 1.0 Total Creatine Kinase 36 Troponin I 0.03 Salicylates Level LESS THAN 1.7 Acetaminophen Level LESS THAN 2.0 Ethyl Alcohol Level LESS THAN 3 Prothrombin Time 15.9 Prothromb Time International Ratio 1.6 Activated Partial Thromboplast Time 40.4 Date/Time Source Procedure Growth Status 07/12/17 00:17 Blood Peripheral Aerobic Blood Culture Pending Received 07/12/17 00:17 Blood Peripheral Anaerobic Blood Culture Pending Received 07/11/17 23:30 Urine Clean Catch Urine Culture Pending Received Result Diagram: 07/12/17 0016 07/12/17 0016 Caprini VTE Risk Assessment Caprini VTE Risk Assessment: Mod/High Risk (score >= 2) Caprini Risk Assessment Model Point Value = 1 Point Value = 2 Point Value = 3 Point Value = 5 Age 41-60 Minor surgery BMI > 25 kg/m2 Swollen legs Varicose veins or History of unexplained or recurrent spontaneous Oral contraceptives or hormone replacement Sepsis (< 1 month) Serious lung disease, including pneumonia (< 1 month) Abnormal pulmonary function Acute myocardial infarction Congestive heart failure (< 1 month) History of inflammatory bowel disease Medical patient at bed rest Age 61-74 Arthroscopic surgery Major open surgery (> 45 min) Laparoscopic surgery (> 45 min) Malignancy Confined to bed (> 72 hours) Immobilizing plaster cast Central venous access Age >= 75 History of VTE Family history of VTE Factor V Leiden Prothrombin [id number] Lupus anticoagulant Anticardiolipin antibodies Elevated serum homocysteine Heparin-induced thrombocytopenia Other congenital or acquired thrombophilia Stroke (< 1 month) Elective arthroplasty Hip, pelvis, or leg fracture Acute spinal cord injury (< 1 month) Prophylaxis Regimen Total Risk Factor Score Risk Level Prophylaxis Regimen 0-1 Low Early ambulation 2 Moderate Order ONE of the following: *Sequential Compression Device (SCD) *Heparin 5000 units SQ BID 3-4 Higher Order ONE of the following medications: *Heparin 5000 units SQ TID *Enoxaparin/Lovenox 40 mg SQ daily (WT < 150 kg, CrCl > 30 mL/min) *Enoxaparin/Lovenox 30 mg SQ daily (WT < 150 kg, CrCl > 10-29 mL/min) *Enoxaparin/Lovenox 30 mg SQ BID (WT < 150 kg, CrCl > 30 mL/min) AND/OR *Sequential Compression Device (SCD) 5 or more Highest Order ONE of the following medications: *Heparin 5000 units SQ TID (Preferred with Epidurals) *Enoxaparin/Lovenox 40 mg SQ daily (WT < 150 kg, CrCl > 30 mL/min) *Enoxaparin/Lovenox 30 mg SQ daily (WT < 150 kg, CrCl > 10-29 mL/min) *Enoxaparin/Lovenox 30 mg SQ BID (WT < 150 kg, CrCl > 30 mL/min) AND *Sequential Compression Device (SCD) Assessment and Plan Problem List: (1) Sepsis ICD Code: A41.9 - Sepsis, unspecified organism Status: Acute (2) UTI (urinary tract infection) ICD Code: N39.0 - Urinary tract infection, site not specified Status: Acute (3) Nephrostomy tube displaced ICD Code: T83.022A - Displacement of nephrostomy catheter, initial encounter (4) JARVIS (acute kidney injury) ICD Code: N17.9 - Acute kidney failure, unspecified (5) Opiate dependence ICD Code: F11.20 - Opioid dependence, uncomplicated Status: Acute (6) Bipolar disorder ICD Code: F31.9 - Bipolar disorder, unspecified (7) DM (diabetes mellitus) ICD Code: E11.9 - Type 2 diabetes mellitus without complications Assessment and Plan A/P: 1. Sepsis: HR 102, WBC 19, Source-UTI. S/p Blood/Urine Cultures, IV Rocephin in ER, recent admit for similar. Follow up cultures, continue IV Abx. 2. UTI: U/a w/ persistent UTI, s/p Rocephin, continue w/ IV Abx as above. 3. JARVIS: Acute on Chronic. Creatinine 1.58, previously 1.40 on 07/01/17, recent admit for Obstructive Uropathy, continue w/ IVF, IV Abx, repeat labs in am. 4. Nephrostomy Tube Dislodged: S/p Right Nephrostomy Tube placement on previous admit for Obstructive Uropathy, CT Abd/Pelvis w/ right nephrostomy almost completely out, images reviewed by me. Consult IR for replacement. 5. Opiate Dependence: recent admit for OD, caution w/ pain medication. 6. DM: Sliding scale w/ Accu-Cheks. Hold Insulin for now as decreased PO intake 7. DVT Prophylaxis: H/o DVT on Eliquis, resume post procedure. 8. Social work for d/c planning as needed. 9. Case discussed w/ ER physician at length. Physician Certification 2 Midnight Certification Type: Admission for Inpatient Services Order for Inpatient Services The services are ordered in accordance with Medicare regulations or non- Medicare payer requirements, as applicable. In the case of services not specified as inpatient-only, they are appropriately provided as inpatient services in accordance with the 2-midnight benchmark. Estimated LOS (days): 2 days is the estimated time the patient will need to remain in the hospital, assuming treatment plan goals are met and no additional complications. Post-Hospital Plan: Not yet determined Problem Qualifiers (1) Sepsis: Qualified Codes: A41.9 - Sepsis, unspecified organism (2) UTI (urinary tract infection): Qualified Codes: N39.0 - Urinary tract infection, site not specified; R31.9 - Hematuria, unspecified Rosa Nunez MD Jul 12, 2017 04:39
[2017-07-12] MEDS: carBAMazepine 200 MG TAB PO SCH ×2 (09:00→19:43)
[2017-07-12] MEDS: INSULIN ASPART SUPPLEMENTAL SCALE SQ SCH ×4 (09:18→19:50)
[2017-07-12] MEDS: MORPHINE SULFATE 2 MG/ML INJ IV PUSH PRN ×5 (09:24→23:18)
[2017-07-12] MEDS: GABAPENTIN 400 MG CAP PO SCH ×4 (09:24→17:11)
[2017-07-12] MEDS: DOCUSATE SODIUM 50 MG/SENNA 8.6 MG TAB PO SCH ×2 (09:24→19:42)
[2017-07-12] MEDS: SODIUM CHLORIDE 0.9% FLUSH 10 ML FLUSH IV FLUSH SCH ×2 (09:26→19:50)
[2017-07-12] MEDS ORDERED: MIDAZOLAM HCL 2 MG/2 ML VIAL ONE (13:44)
[2017-07-12] MEDS ORDERED: IOHEXOL 350 MG/ML 50 ML BTL (for RAD DIAG) OTHER ONE (14:06)
--- NOTE | 2017-07-12 15:00 | RADRPT ---
EXAM DATE/TIME: 07/12/2017 13:19 [facility] COMPARISON: CT ABDOMEN & PELVIS W/O CONTRAST, June 23, 2017, 9:03. CT ABDOMEN & PELVIS W/O CONTRAST, Layla 2016, 3:21. INDICATIONS : 46-year-old female with history of severe right-sided hydronephrosis of uncertain etiology status pos t percutaneous nephrostomy catheter placement on 06/24/2017. Patient reports accidental dislodgment so metime approximately [address] examination performed last night does not demonstrate any signifi cant hydronephrosis. Plan is for attempted replacement of a nephrostomy catheter through the existing tract. MEDICAL HISTORY : Hydronephrosis PMH Bipolar disorder Anxiety Depression diabetes Opioid Dependence Obstructive uropathy SURGICAL HISTORY : Cholecystectomy Nephrostomy tube ENCOUNTER: Subsequent ACUITY: 3 weeks PAIN SCORE: 3/10 LOCATION: Right lower quadrant FLUORO TIME: 2.5 minutes IMAGE SERIES: 1 SEDATION TIME: 30 minutes CONTRAST: 5 cc Omnipaque (iohexol) 350 MEDICATION(S): 1. 2 mg midazolam (Versed) IV PROCEDURE : 1. Nephrostomy catheter placement attempt through existing The risks, benefits and alternatives to the procedure were explained and verbal and written consent w as obtained. Under sterile conditions and using aseptic technique with fluoroscopic guidance the pat ient's existing nephroureteral tube was accessed. 4 Chinese dilator and subsequently a 4 Chinese Coleman catheter were advanced through the existing ri ght nephrostomy tract and multiple attempts to advance a Glidewire into the renal collecting system u nsuccessful. The tract appears to be occluded at the approximate 2 cm depth. Given lack of hydronephr osis at this time, new nephrostomy catheter placement was deferred. CONCLUSION: 1. Existing right nephrostomy catheter tract is now closed with multiple unsuccessful attempts under fluoroscopy to access the right renal collecting system through the tract. 2. Patient currently does not have hydronephrosis, therefore new nephrostomy catheter placement was d eferred at this time. Findings were personally discussed with treating hospitalist at the conclusion of the procedure. Boris Awan MD on July 12, 2017 at 14:27 Board Certified Radiologist. This report was verified electronically.
--- NOTE | 2017-07-12 16:27 | HHI.PR ---
Addendum to Inpatient Note Addendum Reason: Additional Documentation Additional Information Discussed with radiology. Hold off on placing nephrostomy tube at this time and monitor for signs of hydronephrosis. Urology consultation pending. Discussed with the patient's family. Continue antibiotics. Surendra Leary DO Jul 12, 2017 16:27
[2017-07-12] MEDS: QUEtiapine FUMARATE 200 MG TAB PO SCH (19:42)
[2017-07-12] MEDS ORDERED: cefTRIAXone INJ 1,000 MG in SODIUM CHLORIDE 0.9% INJ 100 ML IV SCH (23:00)
[2017-07-13] VITALS: BP 102/57; PULSE 88; PULSE 89; RESP 16; TEMP 96.1; O2SAT 95
[2017-07-13] MEDS: SODIUM CHLOR 0.9% 1000 ML INJ 1,000 ML IV SCH ×3 (00:09→20:09)
[2017-07-13] MEDS: MORPHINE SULFATE 2 MG/ML INJ IV PUSH PRN ×3 (02:26→08:31)
[2017-07-13 04:00] VITALS: BP 112/59; PULSE 88; RESP 16; TEMP 97.1; O2SAT 95
[2017-07-13 07:59] LABS: AUTOMATED NEUTROPHIL # 10.9 TH/MM3 (1.8-7.7); BASOPHIL # 0.1 TH/MM3 (0-0.2); BASOPHIL % 1.2 % (0.0-2.0); EOSINOPHIL # 0.1 TH/MM3 (0-0.4); EOSINOPHIL % 0.5 % (0.0-4.0); LYMPH % 5.5 % (9.0-44.0); LYMPHOCYTE # 0.7 TH/MM3 (1.0-4.8); MEAN CELL VOLUME 95.2 FL (80.0-100.0); MEAN CORPUSCULAR HEMOGLOBIN 31.6 PG (27.0-34.0); MEAN CORPUSCULAR HGB CONC 33.2 % (32.0-36.0); MEAN PLATELET VOLUME 10.1 FL (7.0-11.0); MONO % 5.4 % (0.0-8.0); MONOCYTE # 0.7 TH/MM3 (0-0.9); NEUT % 87.4 % (16.0-70.0); PLATELET COUNT 271 TH/MM3 (150-450); RED BLOOD COUNT 2.21 MIL/MM3 (4.00-5.30); RED CELL DISTRIBUTION WIDTH 16.8 % (11.6-17.2); WHITE BLOOD COUNT 12.5 TH/MM3 (4.0-11.0)
[2017-07-13 08:00] VITALS: BP 129/61; PULSE 103; RESP 15; TEMP 98.9; O2SAT 97
[2017-07-13 08:08] LABS: INTERNATIONAL NORMALIZED RATIO 1.4 RATIO; PROTHROMBIN TIME - PATIENT 14.6 SEC (9.8-11.6)
[2017-07-13] MEDS: INSULIN ASPART SUPPLEMENTAL SCALE SQ SCH ×4 (08:30→20:58)
[2017-07-13] MEDS: carBAMazepine 200 MG TAB PO SCH ×2 (08:31→20:55)
[2017-07-13] MEDS: DOCUSATE SODIUM 50 MG/SENNA 8.6 MG TAB PO SCH ×2 (08:31→20:58)
[2017-07-13 08:43] LABS: ALKALINE PHOSPHATASE 756 U/L (45-117); ALT (GPT) 31 U/L (10-53); AST (GOT) 13 U/L (15-37); BICARBONATE 17.3 MEQ/L (21.0-32.0); BLOOD UREA NITROGEN 37 MG/DL (7-18); CALCIUM 7.8 MG/DL (8.5-10.1); CHLORIDE 101 MEQ/L (98-107); GLOMERULAR FILTRATION RATE 48 ML/MIN (>89); GLUCOSE,RANDOM 337 MG/DL (74-106); SODIUM (NA) 131 MEQ/L (136-145); TOTAL BILIRUBIN ADULT 0.3 MG/DL (0.2-1.0); TOTAL PROTEIN 6.1 GM/DL (6.4-8.2)
[2017-07-13] MEDS: SODIUM CHLORIDE 0.9% FLUSH 10 ML FLUSH IV FLUSH SCH ×2 (09:00→20:59)
[2017-07-13 09:33] LABS: BANDS 3 % (0-6); BASOPHILS 1 % (0-2); LYMPHOCYTES 6 % (9-44); MONOCYTES 1 % (0-8); MYELOCYTES 2 % (0-0); NEUTROPHIL # MANUAL DIFF 11.5 TH/MM3 (1.8-7.7); POLYS (SEG NEUTROPHILS) 87 % (16-70)
--- NOTE | 2017-07-13 11:36 | HHI.PR ---
Subjective Remarks The patient said that her chronic back pain was worse because of the bed. Her nausea is better. She had questions about her infection and the nephrostomy tube. Discussed with nursing. Objective Vitals Vital Signs Date Time Temp Pulse Resp B/P (MAP) Pulse Ox O2 Delivery O2 Flow Rate FiO2 07/13/17 08:00 98.9 103 15 129/61 (83) 97 07/13/17 05:29 18 07/13/17 04:00 97.1 88 16 112/59 (76) 95 07/13/17 00:00 96.1 88 16 102/57 (72) 95 07/13/17 00:00 89 07/12/17 20:00 96 07/12/17 20:00 98.0 88 16 113/58 (76) 95 07/12/17 16:00 98.6 98 16 134/67 (89) 99 07/12/17 12:00 98.8 97 18 132/85 (101) 94 I/O 07/12/17 07/12/17 07/12/17 07/13/17 07/13/17 07/13/17 07:00 15:00 23:00 07:00 15:00 23:00 Intake Total 2100 ml 2100 ml 1580 ml Output Total 225 ml Balance 2100 ml 1875 ml 1580 ml Intake Oral 1400 ml 480 ml IV Total 2100 ml 700 ml 1100 ml Output Urine Total 225 ml # Voids 4 2 # Bowel Movements 0 Result Diagram: 07/13/17 0650 07/13/17 0650 Imaging Last Impressions Abdomen/Pelvis CT 07/12/17 0128 Signed Impressions: Service Date/Time: Wednesday, July 12, 2017 03:21 - CONCLUSION: The patient's right nephroureteral catheter is almost completely out. No evidence of recurrent hydronephrosis at present and otherwise grossly stable nonspecific noncontrast appearance of the abdomen and pelvis Bill Spear MD Miscellaneous Special Procedure 07/12/17 0000 Signed Impressions: Service Date/Time: Wednesday, July 12, 2017 13:19 - CONCLUSION: 1. Existing right nephrostomy catheter tract is now closed with multiple unsuccessful attempts under fluoroscopy to access the right renal collecting system through the tract. 2. Patient currently does not have hydronephrosis, therefore new nephrostomy catheter placement was deferred at this time. Findings were personally discussed with treating hospitalist at the conclusion of the procedure. Boris Awan MD Chest X-Ray 07/11/17 0000 Signed Impressions: Service Date/Time: Tuesday, July 11, 2017 23:31 - CONCLUSION: No acute disease. Bill Spear MD Objective Remarks GENERAL: Middle-aged female in no acute distress. HEENT: PERRLA, EOMI. No scleral icterus or conjunctival pallor. No lid lag or facial droop. CARDIOVASCULAR: Regular rate and rhythm. No obvious murmurs to auscultation. No chest tenderness to palpation. RESPIRATORY: No obvious rhonchi or wheezing. Clear to auscultation. Breath sounds equal bilaterally. GASTROINTESTINAL: Abdomen soft, non-tender, nondistended. BS normal. MUSCULOSKELETAL: Extremities without clubbing, cyanosis, or edema. No obvious deformities. Bandage in place over prior nephrostomy tube site. NEUROLOGICAL: Awake, alert and oriented x4. No focal neurologic deficits. Moving both upper and lower extremities spontaneously. PSYCH: Mood and affect appropriate. Medications and IVs Current Medications Medications (Trade) Dose Ordered Sig/Doris Route Start Time Stop Time Status Last Admin (NS Flush) 2 ml UNSCH PRN IV FLUSH 07/11/17 23:15 07/12/17 00:23 (D50w (Vial) Inj) 50 ml UNSCH PRN IV PUSH 07/12/17 04:15 (Glucagon Inj) 1 mg UNSCH PRN OTHER 07/12/17 04:15 (NovoLOG SUPPLEMENTAL SCALE) 1 ACHS SLIDING SCALE SQ 07/12/17 08:00 07/13/17 08:30 Sodium Chloride 1,000 ml @ 100 mls/hr Q10H IV 07/12/17 04:09 07/13/17 08:32 (NS Flush) 2 ml UNSCH PRN IV FLUSH 07/12/17 04:15 (NS Flush) 2 ml BID IV FLUSH 07/12/17 09:00 07/12/17 09:26 (Zofran Inj) 4 mg Q6H PRN IVP 07/12/17 04:15 07/12/17 17:20 (Tylenol) 650 mg Q6H PRN PO 07/12/17 04:15 ([place] 5-325 Mg) 1 tab Q4H PRN PO 07/12/17 04:15 (Morphine Inj) 2 mg Q3H PRN IV PUSH 07/12/17 04:15 07/13/17 08:31 (Tess-Colace) 1 tab BID PO 07/12/17 09:00 07/13/17 08:31 (Milk Of Magnesia Liq) 30 ml Q12H PRN PO 07/12/17 04:15 (Senokot) 17.2 mg Q12H PRN PO 07/12/17 04:15 (Dulcolax Supp) 10 mg DAILY PRN RECTAL 07/12/17 04:15 (Lactulose Liq) 30 ml DAILY PRN PO 07/12/17 04:15 (TEGretol) 200 mg BID PO 07/12/17 09:00 07/13/17 08:31 (Neurontin) 400 mg TID PO 07/12/17 09:00 07/12/17 17:11 (SEROquel) 200 mg HS PO 07/12/17 21:00 07/12/17 19:42 Piperacillin Sod/ Tazobactam Sod 100 ml @ 200 mls/hr Q6H IV 07/13/17 12:00 A/P Problem List: (1) Sepsis ICD Code: A41.9 - Sepsis, unspecified organism Status: Acute (2) UTI (urinary tract infection) ICD Code: N39.0 - Urinary tract infection, site not specified Status: Acute (3) Nephrostomy tube displaced ICD Code: T83.022A - Displacement of nephrostomy catheter, initial encounter (4) JARVIS (acute kidney injury) ICD Code: N17.9 - Acute kidney failure, unspecified (5) Opiate dependence ICD Code: F11.20 - Opioid dependence, uncomplicated Status: Acute (6) Bipolar disorder ICD Code: F31.9 - Bipolar disorder, unspecified (7) DM (diabetes mellitus) ICD Code: E11.9 - Type 2 diabetes mellitus without complications Assessment and Plan Sepsis HR 102, WBC 19, Source-UTI. S/p Blood/Urine Cultures, IV Rocephin in ER, recent admit for similar. Culture growing ESBL E coli per nursing. Blood culture also positive. - change antibiotics to IV Zosyn. - ID consult. - IVFs. - follow cultures. JARVIS Acute on Chronic. Recent admit for obstructive uropathy. Improving. - continue w/ IVF, IV Abx, repeat labs in am. - avoid nephrotoxins. Nephrostomy Tube Dislodged S/p Right Nephrostomy Tube placement on previous admit for Obstructive Uropathy. CT Abd/Pelvis w/ right nephrostomy almost completely out. It did eventually come out. Consulted IR who recommended not to replace unless the pt develops hydronephrosis again. - IVFs. - monitor output. Opiate Dependence Recent admit for OD. - caution w/ pain medication. DM Poorly controlled. - Sliding scale w/ Accu-Cheks. - Levemir 15 units BID. Anemia Chronic. - follow CBC closely as pt is on Eliquis for DVT. - would transfuse if hgb drops below 7. DVT Prophylaxis: Eliquis. Discharge Planning Awaiting ID consult Problem Qualifiers (1) Sepsis: Qualified Codes: A41.9 - Sepsis, unspecified organism (2) UTI (urinary tract infection): Qualified Codes: N39.0 - Urinary tract infection, site not specified; R31.9 - Hematuria, unspecified Surendra Leary DO Jul 13, 2017 11:35
[2017-07-13 12:00] VITALS: BP 123/63; PULSE 95; RESP 19; TEMP 98.2; O2SAT 93
[2017-07-13] MEDS ORDERED: ALPRAZolam 1 MG TAB PO ONE (12:00)
[2017-07-13] MEDS ORDERED: PIPERACIL-TAZO 4.5 GM PREMIX 100 ML IV SCH (12:00)
[2017-07-13] MEDS ORDERED: HYDROmorphone HCL 4 MG TAB PO PRN (12:00)
[2017-07-13] MEDS: GABAPENTIN 400 MG CAP PO SCH ×2 (12:11→18:06)
[2017-07-13] MEDS: HYDROmorphone HCL 4 MG TAB PO PRN ×3 (12:11→20:57)
[2017-07-13] MEDS: INSULIN DETEMIR 100 UNITS/ML VIAL SQ SCH ×2 (12:25→20:59)
[2017-07-13] MEDS: APIXABAN 5 MG TABLET PO SCH ×2 (12:27→20:55)
--- NOTE | 2017-07-13 12:57 | PD.ID.CON ---
History of Present Illness Service ID Consult Requested By Dr Leary Reason for Consult ESBL + E.coli UTI Primary Care Physician Sukumar Logan MD Diagnoses: History of Present Illness 46 yo diabetic femelae with multiple med problems sp R nephrostomy placement on 07/04 for unspecified obstructive uropathy SHe could not get o/p urologist f/u 2/2 insurance issues She noticed that her drainage stopped on Friday and resstarted heavily on She also developped fever, chills, nausea, vomiting She presented with her R nephrostomy tube nearly completely out Yday sp right nephrostomy placement with multiple unsuccessful attempts under fluoroscopy to access the right renal collecting system through the tract. Since patient currently does not have hydronephrosis, therefore new nephrostomy catheter placement was deferred at this time. Her blood has E.coli / (S P) and urine clx grew ESBL+ E.coli Past Family Social History Allergies: Coded Allergies: ketorolac (Unverified Allergy, Severe, Anaphylaxis, 07/11/17) Past Medical History Bipolar Disorder, Anxiety, Depression, DM, Opioid Dependence and Obstructive Uropathy s/p Nephrostomy Tube Past Surgical History Cholecystectomy, Nephrostomy Tube Active Ordered Medications Medications where reviewed in EMR Antibiotics Include: zosyn Family History Reviewed. No h/o DM or CAD Social History Negative for alcohol or tobacco. +Narcotic dependence. Physical Exam Vital Signs Vital Signs Date Time Temp Pulse Resp B/P (MAP) Pulse Ox O2 Delivery O2 Flow Rate FiO2 07/13/17 08:00 98.9 103 15 129/61 (83) 97 07/13/17 05:29 18 07/13/17 04:00 97.1 88 16 112/59 (76) 95 07/13/17 00:00 96.1 88 16 102/57 (72) 95 07/13/17 00:00 89 07/12/17 20:00 96 07/12/17 20:00 98.0 88 16 113/58 (76) 95 07/12/17 16:00 98.6 98 16 134/67 (89) 99 Physical Exam CONSTITUTIONAL/GENERAL: This is an adequately nourished patient, in no apparent distress. TUBES/LINES/DRAINS: SKIN: No jaundice, rashes, or lesions. Skin temperature appropriate. Not diaphoretic. HEAD: Atraumatic. Normocephalic. EYES: Pupils equal and round and reactive. Extraocular motions intact. No scleral icterus. No injection or drainage. Fundi not examined. ENT: Hearing grossly normal. Nose without bleeding or purulent drainage. Throat without visible erythema, exudates, masses, or lesions. NECK: Trachea midline. Supple, nontender. CARDIOVASCULAR: Regular rate and rhythm without murmurs, gallops, or rubs. No JVD. Peripheral pulses symmetric. RESPIRATORY/CHEST: Symmetric, unlabored respirations. Clear to auscultation. Breath sounds equal bilaterally. No wheezes, rales, or rhonchi. GASTROINTESTINAL: Abdomen soft, non-tender, nondistended. No hepato-splenomegaly , or palpable masses. No guarding. Bowel sounds present. GENITOURINARY: Without palpable bladder distension. dressing in place R B/l CVA tenderness more prominent L MUSCULOSKELETAL: Extremities without clubbing, cyanosis, or edema. No joint tenderness or effusion noted. No calf tenderness. No mottling or clubbing. LYMPHATICS: No palpable cervical or supraclavicular adenopathy. NEUROLOGICAL: Awake and alert. Motor and sensory grossly within normal limits. Follows commands. Clear speech. Moves all extremities. PSYCHIATRIC: No obvious anxiety/depression. no apparent hallucinations or other psychotic thought process. Laboratory Laboratory Tests Test 07/13/17 06:50 White Blood Count 12.5 Red Blood Count 2.21 Hemoglobin 7.0 Hematocrit 21.0 Mean Corpuscular Volume 95.2 Mean Corpuscular Hemoglobin 31.6 Mean Corpuscular Hemoglobin Concent 33.2 Red Cell Distribution Width 16.8 Platelet Count 271 Mean Platelet Volume 10.1 Neutrophils (%) (Auto) 87.4 Lymphocytes (%) (Auto) 5.5 Monocytes (%) (Auto) 5.4 Eosinophils (%) (Auto) 0.5 Basophils (%) (Auto) 1.2 Neutrophils # (Auto) 10.9 Lymphocytes # (Auto) 0.7 Monocytes # (Auto) 0.7 Eosinophils # (Auto) 0.1 Basophils # (Auto) 0.1 CBC Comment AUTO DIFF Differential Total Cells Counted 100 Neutrophils % (Manual) 87 Band Neutrophils % 3 Lymphocytes % 6 Monocytes % 1 Basophils % 1 Neutrophils # (Manual) 11.5 Myelocytes 2 Differential Comment FINAL DIFF MANUAL Platelet Estimate NORMAL Platelet Morphology Comment NORMAL Red Cell Morphology Comment NORMAL Prothrombin Time 14.6 Prothromb Time International Ratio 1.4 Blood Urea Nitrogen 37 Creatinine 1.20 Random Glucose 337 Total Protein 6.1 Albumin 2.0 Calcium Level 7.8 Alkaline Phosphatase 756 Aspartate Amino Transf (AST/SGOT) 13 Alanine Aminotransferase (ALT/SGPT) 31 Total Bilirubin 0.3 Sodium Level 131 Potassium Level 4.1 Chloride Level 101 Carbon Dioxide Level 17.3 Anion Gap 13 Estimat Glomerular Filtration Rate 48 Date/Time Source Procedure Growth Status 07/12/17 00:17 Blood Peripheral Aerobic Blood Culture - Preliminary NO GROWTH IN 1 DAY Resulted 07/12/17 00:17 Blood Peripheral Anaerobic Blood Culture - Preliminary NO GROWTH IN 1 DAY Resulted 07/11/17 23:30 Urine Clean Catch Urine Culture - Final Escherichia Coli Esbl Positive Complete Result Diagram: 07/13/17 0650 07/13/17 0650 Imaging Last Impressions Abdomen/Pelvis CT 07/12/17 0128 Signed Impressions: Service Date/Time: Wednesday, July 12, 2017 03:21 - CONCLUSION: The patient's right nephroureteral catheter is almost completely out. No evidence of recurrent hydronephrosis at present and otherwise grossly stable nonspecific noncontrast appearance of the abdomen and pelvis Bill Spear MD Miscellaneous Special Procedure 07/12/17 0000 Signed Impressions: Service Date/Time: Wednesday, July 12, 2017 13:19 - CONCLUSION: 1. Existing right nephrostomy catheter tract is now closed with multiple unsuccessful attempts under fluoroscopy to access the right renal collecting system through the tract. 2. Patient currently does not have hydronephrosis, therefore new nephrostomy catheter placement was deferred at this time. Findings were personally discussed with treating hospitalist at the conclusion of the procedure. Boris Awan MD Chest X-Ray 07/11/17 0000 Signed Impressions: Service Date/Time: Tuesday, July 11, 2017 23:31 - CONCLUSION: No acute disease. Bill Spear MD Assessment and Plan Assessment and Plan Complicated UTI with ESBL+ E.coli in a pt with R nephrostomy tube 2/2 unspecified obstructive uropathy No need for nephrostomy at this point sice there is hydronephroosis E coli sepsis, sourcve urinary dc zosyn Ertapenm fu blood clx untill final transition to oral bactrim ( BACTRIM DS 1 po BID) possible once sepsis resolves and pt remains afebrile total duration of abx tx 14 days providing pt cont to improve Discussed Condition With Rosalie Yee MD Jul 13, 2017 12:57
[2017-07-13 16:00] VITALS: BP 131/62; PULSE 95; RESP 20; TEMP 97.1; O2SAT 97
[2017-07-13] MEDS: ALPRAZolam 1 MG TAB PO PRN (16:07)
[2017-07-13] MEDS ORDERED: ASP: Documented ESBL, MDR A baumannii or P. aeruginosa PRN (17:00)
[2017-07-13] MEDS ORDERED: MISCELLANEOUS PHARMACY INFORMATION XX PRN (17:00)
[2017-07-13] MEDS: ERTAPENEM INJ 1,000 MG in SODIUM CHLORIDE 0.9% INJ 100 ML IV SCH (18:06)
[2017-07-13 20:00] VITALS: BP 124/64; PULSE 98; RESP 16; TEMP 99.6; O2SAT 97
[2017-07-13] MEDS: QUEtiapine FUMARATE 200 MG TAB PO SCH (20:55)
[2017-07-14] VITALS (9 sets, daily range): BP systolic 100–145; BP diastolic 50–85; PULSE 89–107; RESP 16–20; TEMP 96.7–98.7; O2SAT 93–99
[2017-07-14] MEDS: ALPRAZolam 1 MG TAB PO PRN ×4 (00:11→19:56)
[2017-07-14] MEDS: HYDROmorphone HCL 4 MG TAB PO PRN ×6 (00:16→19:56)
[2017-07-14] MEDS: SODIUM CHLOR 0.9% 1000 ML INJ 1,000 ML IV SCH ×2 (04:28→15:00)
[2017-07-14 07:29] LABS: MEAN CELL VOLUME 93.8 FL (80.0-100.0); MEAN CORPUSCULAR HGB CONC 34.1 % (32.0-36.0); PLATELET COUNT 292 TH/MM3 (150-450); RED BLOOD COUNT 2.12 MIL/MM3 (4.00-5.30); RED CELL DISTRIBUTION WIDTH 16.7 % (11.6-17.2); WHITE BLOOD COUNT 10.2 TH/MM3 (4.0-11.0)
[2017-07-14 07:35] LABS: HEMATOCRIT 19.9 % (35.0-46.0); HEMOGLOBIN 6.8 GM/DL (11.6-15.3)
[2017-07-14] MEDS: INSULIN ASPART SUPPLEMENTAL SCALE SQ SCH ×4 (08:00→21:51)
[2017-07-14 08:01] LABS: BICARBONATE 22.2 MEQ/L (21.0-32.0); CALCIUM 8.2 MG/DL (8.5-10.1); CREATININE 1.19 MG/DL (0.50-1.00); MAGNESIUM 1.7 MG/DL (1.5-2.5)
[2017-07-14] MEDS: carBAMazepine 200 MG TAB PO SCH ×2 (08:31→19:55)
[2017-07-14] MEDS: APIXABAN 5 MG TABLET PO SCH ×2 (08:31→19:56)
[2017-07-14] MEDS: GABAPENTIN 400 MG CAP PO SCH ×3 (08:32→17:51)
[2017-07-14] MEDS: DOCUSATE SODIUM 50 MG/SENNA 8.6 MG TAB PO SCH ×2 (08:32→19:56)
[2017-07-14] MEDS: INSULIN DETEMIR 100 UNITS/ML VIAL SQ SCH (08:39)
[2017-07-14] MEDS: SODIUM CHLORIDE 0.9% FLUSH 10 ML FLUSH IV FLUSH SCH ×2 (08:43→21:00)
--- NOTE | 2017-07-14 09:37 | EKG ---
Date Performed: 07/11/2017 Time Performed: 23:26:16 PTAGE: 46 years EKG: SINUS TACHYCARDIA WITH SHORT IN INTERVAL ABNORMAL RHYTHM ECG PREVIOUS TRACING : 06/22/2017 22.31 Compared to prior tracing no significant change DOCTOR: Tamy Montiel Interpretating Date/Time 07/14/2017 09:35:45
[2017-07-14] MEDS ORDERED: SODIUM CHLOR 0.9% 250 ML INJ 250 ML IV ONE (12:30)
--- NOTE | 2017-07-14 12:37 | HHI.PR ---
Subjective Remarks Patient seen and evaluated today in follow-up for UTI with sepsis. Complaining of urinary frequency today Objective Vitals Vital Signs Date Time Temp Pulse Resp B/P (MAP) Pulse Ox O2 Delivery O2 Flow Rate FiO2 07/14/17 12:00 98.7 100 20 121/60 (80) 99 07/14/17 08:00 96.9 102 19 122/69 (86) 93 07/14/17 04:37 103 07/14/17 04:00 96.7 92 17 135/66 (89) 95 07/14/17 00:00 97.3 105 16 100/50 (67) 97 07/13/17 20:00 99.6 98 16 124/64 (84) 97 07/13/17 16:00 97.1 95 20 131/62 (85) 97 I/O 07/13/17 07/13/17 07/13/17 07/14/17 07/14/17 07/14/17 06:59 14:59 22:59 06:59 14:59 22:59 Intake Total 1580 ml 1040 ml 850 ml Balance 1580 ml 1040 ml 850 ml Intake Oral 480 ml 840 ml 850 ml IV Total 1100 ml 200 ml # Voids 2 7 4 # Bowel Movements 0 Result Diagram: 07/14/17 0602 07/14/17 0602 Objective Remarks Last Impressions Abdomen/Pelvis CT 07/12/17 0128 Signed Impressions: Service Date/Time: Wednesday, July 12, 2017 03:21 - CONCLUSION: The patient's right nephroureteral catheter is almost completely out. No evidence of recurrent hydronephrosis at present and otherwise grossly stable nonspecific noncontrast appearance of the abdomen and pelvis Bill Spear MD Miscellaneous Special Procedure 07/12/17 0000 Signed Impressions: Service Date/Time: Wednesday, July 12, 2017 13:19 - CONCLUSION: 1. Existing right nephrostomy catheter tract is now closed with multiple unsuccessful attempts under fluoroscopy to access the right renal collecting system through the tract. 2. Patient currently does not have hydronephrosis, therefore new nephrostomy catheter placement was deferred at this time. Findings were personally discussed with treating hospitalist at the conclusion of the procedure. Boris Awan MD Chest X-Ray 07/11/17 0000 Signed Impressions: Service Date/Time: Tuesday, July 11, 2017 23:31 - CONCLUSION: No acute disease. Bill Spear MD A/P Problem List: (1) Sepsis ICD Code: A41.9 - Sepsis, unspecified organism Status: Acute Plan: Secondary to ESBL UTI, continue ertapenem for now Changed to Bactrim in a.m. Sepsis is resolved (2) JARVIS (acute kidney injury) ICD Code: N17.9 - Acute kidney failure, unspecified Plan: Improved with treatment of infection. Patient with a history of nephrostomy tube which was dislodged. There is no evidence of obstruction or hydronephrosis at this time the tube was not replaced (3) Opiate dependence ICD Code: F11.20 - Opioid dependence, uncomplicated Status: Acute Plan: Currently stable (4) DM (diabetes mellitus) ICD Code: E11.9 - Type 2 diabetes mellitus without complications Plan: Continue diabetic management (5) Anemia ICD Code: D64.9 - Anemia, unspecified Plan: With a history of iron deficiency, Recent iron studies in June were normal We'll transfuse 1 unit of packed red blood cells Likely due to chronic disease Discharge Planning Likely discharge in a.m. Problem Qualifiers (1) Sepsis: Qualified Codes: A41.9 - Sepsis, unspecified organism Jeane Calvillo MD Jul 14, 2017 12:36
[2017-07-14] MEDS: QUEtiapine FUMARATE 200 MG TAB PO SCH (19:56)
[2017-07-14] MEDS ORDERED: INSULIN DETEMIR 100 UNITS/ML VIAL SQ SCH (21:00)
[2017-07-14] MEDS: ERTAPENEM INJ 1,000 MG in SODIUM CHLORIDE 0.9% INJ 100 ML IV SCH (21:23)
[2017-07-15] VITALS: BP 135/64; PULSE 105; RESP 20; TEMP 99.1; O2SAT 98
[2017-07-15] MEDS: HYDROmorphone HCL 4 MG TAB PO PRN ×4 (00:26→12:22)
[2017-07-15] MEDS: SODIUM CHLOR 0.9% 1000 ML INJ 1,000 ML IV SCH ×2 (02:25→06:22)
[2017-07-15] MEDS: ALPRAZolam 1 MG TAB PO PRN ×2 (04:37→12:21)
[2017-07-15 07:48] LABS: AUTOMATED NEUTROPHIL # 8.1 TH/MM3 (1.8-7.7); BASOPHIL # 0.1 TH/MM3 (0-0.2); BASOPHIL % 0.9 % (0.0-2.0); EOSINOPHIL # 0.4 TH/MM3 (0-0.4); EOSINOPHIL % 3.5 % (0.0-4.0); HEMATOCRIT 21.5 % (35.0-46.0); HEMOGLOBIN 7.3 GM/DL (11.6-15.3); LYMPH % 16.8 % (9.0-44.0); LYMPHOCYTE # 1.9 TH/MM3 (1.0-4.8); MEAN CELL VOLUME 90.5 FL (80.0-100.0); MEAN CORPUSCULAR HEMOGLOBIN 30.8 PG (27.0-34.0); MEAN PLATELET VOLUME 8.2 FL (7.0-11.0); MONO % 7.5 % (0.0-8.0); MONOCYTE # 0.9 TH/MM3 (0-0.9); NEUT % 71.3 % (16.0-70.0); PLATELET COUNT 394 TH/MM3 (150-450); RED BLOOD COUNT 2.38 MIL/MM3 (4.00-5.30); RED CELL DISTRIBUTION WIDTH 17.5 % (11.6-17.2); WHITE BLOOD COUNT 11.4 TH/MM3 (4.0-11.0)
[2017-07-15 07:58] VITALS: BP 128/64; PULSE 99; RESP 16; TEMP 98; O2SAT 100
[2017-07-15] MEDS: INSULIN ASPART SUPPLEMENTAL SCALE SQ SCH ×2 (08:00→12:00)
[2017-07-15] MEDS: DOCUSATE SODIUM 50 MG/SENNA 8.6 MG TAB PO SCH (08:19)
[2017-07-15] MEDS: APIXABAN 5 MG TABLET PO SCH (08:19)
[2017-07-15] MEDS: GABAPENTIN 400 MG CAP PO SCH ×2 (08:19→12:22)
[2017-07-15] MEDS: carBAMazepine 200 MG TAB PO SCH (08:20)
[2017-07-15] MEDS: SODIUM CHLORIDE 0.9% FLUSH 10 ML FLUSH IV FLUSH SCH (08:25)
[2017-07-15] MEDS ORDERED: INSULIN DETEMIR 100 UNITS/ML VIAL SQ SCH (09:00)
[2017-07-15] MEDS ORDERED: SULFAMETHOXAZOLE-TRIMETHOPRIM DS 800-160 MG TAB PO SCH (09:00)
[2017-07-15 09:04] LABS: BANDS 11 % (0-6); LYMPHOCYTES 16 % (9-44); METAMYELOCYTES 7 % (0-1); MONOCYTES 2 % (0-8); MYELOCYTES 1 % (0-0); POLYS (SEG NEUTROPHILS) 60 % (16-70); TOXIC GRANULATION 1+ (NORMAL)
[2017-07-15 11:35] VITALS: BP 133/75; PULSE 100; RESP 16; TEMP 98.6; O2SAT 92
[2017-07-15] MEDS ORDERED: SULF1TAB23 PO (11:44)
--- NOTE | 2017-07-15 11:44 | HHI.DCPOC ---
Discharge Care Plan Diagnosis: (1) UTI (urinary tract infection) (2) Sepsis Goals to Promote Your Health * To prevent worsening of your condition and complications * To maintain your health at the optimal level Directions to Meet Your Goals Take your medications as prescribed Follow your dietary instruction Follow activity as directed Keep your appointments as scheduled Take your immunizations and boosters as scheduled If your symptoms worsen call your PCP, if no PCP go to Urgent Care Center or Emergency Room Smoking is Dangerous to Your Health. Avoid second hand smoke Call the 24-hour hour crisis hotline for domestic abuse at Jeane Calvillo MD Jul 15, 2017 11:44
--- NOTE | 2017-07-15 11:47 | HHI.DS ---
Discharge Summary Admission Date Jul 12, 2017 at 04:07 Discharge Date: Jul 15, 2017 Admitting Diagnosis sepsis, UTI, malfunctioning nephrostomy tube (1) Sepsis ICD Code: A41.9 - Sepsis, unspecified organism Status: Acute (2) JARVIS (acute kidney injury) ICD Code: N17.9 - Acute kidney failure, unspecified (3) Opiate dependence ICD Code: F11.20 - Opioid dependence, uncomplicated Status: Acute (4) DM (diabetes mellitus) ICD Code: E11.9 - Type 2 diabetes mellitus without complications (5) Anemia ICD Code: D64.9 - Anemia, unspecified Procedures none Brief History - From Admission This is a 46-year-old female with a PMH of Bipolar Disorder, Anxiety, Depression , DM, Opioid Dependence and Obstructive Uropathy s/p Nephrostomy Tube who was brought to the ER by secondary to generalized weakness, nausea/vomiting and incontinence. reports pt has been unable to get out of bed, + urinating on herself, Nephrostomy doesn't appear to be draining. Recent admit 06/23-06/28/17 for Opiate OD under [employer], found to have JARVIS w/ Obstructive Uropathy of unknown etiology and UTI, s/p Right Nephrostomy Tube placement and completion of IV Abx. D/c'd to Inpatient Psych, then d/c'd home 07/01/17. Now w/ worsening symptoms. On arrival, BP 157/77, HR 102, O2 sat 98% on RA, Afebrile. WBC 19.9. Creatinine 1.58, previously 1.40 on 07/01/17. INR 1.6. UA positive for UTI. Alcohol negative. Urine Drug Screen positive for Benzo and Opiates. CXR with no acute findings. CT Abd/Pelvis w/ right nephrostomy tube almost completely out, no evidence of recurrent hydronephrosis. S/p Blood/ Urine Cultures and Rocephin IV in ER CBC/BMP: 07/15/17 0726 07/14/17 0602 Significant Findings Laboratory Tests Test 07/13/17 06:50 07/14/17 06:02 07/15/17 07:26 White Blood Count 12.5 TH/MM3 (4.0-11.0) 11.4 TH/MM3 (4.0-11.0) Red Blood Count 2.21 MIL/MM3 (4.00-5.30) 2.12 MIL/MM3 (4.00-5.30) 2.38 MIL/MM3 (4.00-5.30) Hemoglobin 7.0 GM/DL (11.6-15.3) 6.8 GM/DL (11.6-15.3) 7.3 GM/DL (11.6-15.3) Hematocrit 21.0 % (35.0-46.0) 19.9 % (35.0-46.0) 21.5 % (35.0-46.0) Neutrophils (%) (Auto) 87.4 % (16.0-70.0) 71.3 % (16.0-70.0) Lymphocytes (%) (Auto) 5.5 % (9.0-44.0) Neutrophils # (Auto) 10.9 TH/MM3 (1.8-7.7) 8.1 TH/MM3 (1.8-7.7) Lymphocytes # (Auto) 0.7 TH/MM3 (1.0-4.8) Neutrophils % (Manual) 87 % (16-70) Lymphocytes % 6 % (9-44) Neutrophils # (Manual) 11.5 TH/MM3 (1.8-7.7) 9.0 TH/MM3 (1.8-7.7) Myelocytes 2 % (0-0) 1 % (0-0) Prothrombin Time 14.6 SEC (9.8-11.6) Blood Urea Nitrogen 37 MG/DL (7-18) 33 MG/DL (7-18) Creatinine 1.20 MG/DL (0.50-1.00) 1.19 MG/DL (0.50-1.00) Random Glucose 337 MG/DL (74-106) 59 MG/DL (74-106) Total Protein 6.1 GM/DL (6.4-8.2) Albumin 2.0 GM/DL (3.4-5.0) Calcium Level 7.8 MG/DL (8.5-10.1) 8.2 MG/DL (8.5-10.1) Alkaline Phosphatase 756 U/L (45-117) Aspartate Amino Transf (AST/SGOT) 13 U/L (15-37) Sodium Level 131 MEQ/L (136-145) Carbon Dioxide Level 17.3 MEQ/L (21.0-32.0) Estimat Glomerular Filtration Rate 48 ML/MIN (>89) 49 ML/MIN (>89) Red Cell Distribution Width 17.5 % (11.6-17.2) Band Neutrophils % 11 % (0-6) Metamyelocytes 7 % (0-1) Toxic Granulation 1+ (NORMAL) Imaging Last Impressions Abdomen/Pelvis CT 07/12/17 0128 Signed Impressions: Service Date/Time: Wednesday, July 12, 2017 03:21 - CONCLUSION: The patient's right nephroureteral catheter is almost completely out. No evidence of recurrent hydronephrosis at present and otherwise grossly stable nonspecific noncontrast appearance of the abdomen and pelvis Bill Spear MD Miscellaneous Special Procedure 07/12/17 0000 Signed Impressions: Service Date/Time: Wednesday, July 12, 2017 13:19 - CONCLUSION: 1. Existing right nephrostomy catheter tract is now closed with multiple unsuccessful attempts under fluoroscopy to access the right renal collecting system through the tract. 2. Patient currently does not have hydronephrosis, therefore new nephrostomy catheter placement was deferred at this time. Findings were personally discussed with treating hospitalist at the conclusion of the procedure. Boris Awan MD Chest X-Ray 07/11/17 0000 Signed Impressions: Service Date/Time: Tuesday, July 11, 2017 23:31 - CONCLUSION: No acute disease. Bill Spear MD PE at Discharge GENERAL: This is a well-nourished, well-developed patient, in no apparent distress. CARDIOVASCULAR: Regular rate and rhythm without murmurs, gallops, or rubs. RESPIRATORY: Clear to auscultation. Breath sounds equal bilaterally. No wheezes , rales, or rhonchi. GASTROINTESTINAL: Abdomen soft, non-tender, nondistended. Normal active bowel sounds MUSCULOSKELETAL: Extremities without clubbing, cyanosis, or edema. NEURO: Alert & Oriented x4 to person, place, time, situation. Moves all ext x4 Pt update on day of discharge Patient seen today in follow-up for Escherichia coli sepsis. No new issues overnight. Discharge plans discussed with patient and spouse as well as nursing team. Patient feeling well Hospital Course This patient is a 46-year-old female with a history of urinary tract infection and kidney stones and nephrostomy. Nephrostomy did come dislodged prior to arrival. Patient did have sepsis present on admission from ESBL Escherichia coli. This was treated with IV antibiotics. Ertapenem was chosen by the infectious disease doctor in consultation. She was later switched to Bactrim. She did well in the hospital was discharged home Pt Condition on Discharge: Good Discharge Disposition: Discharge Home Discharge Time: <= 30 minutes Discharge Instructions DIET: Follow Instructions for: Diabetic Diet Activities you can perform: Regular-No Restrictions New Medications: Sulfamethoxazole-Trimethoprim (Sulfamethoxazole-Trimethoprim) 800-160 Mg Tab 1 TAB PO BID for Infection, #21 TAB 0 Refills Continued Medications: Apixaban (Eliquis) 5 Mg Tab 5 MG PO BID for Blood Clot Prevention for 30 Days, #60 TAB 0 Refills Carbamazepine (Tegretol) 200 Mg Tab 200 MG PO BID for health for 30 Days, #60 TAB 0 Refills Gabapentin (Neurontin) 400 Mg Cap 400 MG PO TID for health for 30 Days, #90 CAP Insulin Aspart Inj (Novolog Inj) 100 Unit/Ml Inj 1 UNITS SQ ACHS SLIDING SCALE for DM for 30 Days, INJECTION as diretcted Insulin Glargine Inj (Lantus Inj) 1,000 Unit/10 Ml Vial 20 UNITS SQ HS for Blood Sugar Management, VIAL 0 Refills Insulin Glargine Inj (Lantus Inj) 1,000 Unit/10 Ml Vial 30 UNITS SQ daily am for Blood Sugar Management, VIAL 0 Refills Quetiapine (Seroquel) 200 Mg Tab 200 MG PO HS for health for 30 Days, #30 TAB 0 Refills Sennosides-Docusate Sodium (Gnp Senna Plus 8.6-50 mg) 8.6 Mg-50 Mg Tab 1 TAB PO BID for health for 30 Days, #60 TAB Jeane Calvillo MD Jul 15, 2017 11:47
--- NOTE | 2017-07-15 15:24 | HHI.FF ---
Face to Face Verification Diagnosis: (1) Bipolar disorder (2) Diabetes mellitus Home Health Nursing Order: Medical education Nursing assessment with vital signs [employer] Order: To Evaluate: Support services Order: To Provide: Community services I have seen patient Keisha Schmid on 07/15/17. My clinical findings support the need for the requested home health care services because: Need for psychosocial assistance Infection w/ risk of complications I certify that my clinical findings support that this patient is homebound because: Need for psychosocial assistance Jeane Calvillo MD Jul 15, 2017 15:24
== END 2017-07-15 13:07 | disposition home health service (06) | DRG 872 ==
LOC: NEPD 22:27 → NEDA 07-12 04:07 → N07A 07-12 06:56
PROVIDERS: ADMIT Hospitalist; ATTEND Hospitalist
PROC: BT1D1ZZ Fluoroscopy of Right Kidney, Ureter and Bladder using Low Osmolar Contrast (ICD-10-PCS; principal; 2017-07-12)
PROC: 30233N1 Transfusion of Nonautologous Red Blood Cells into Peripheral Vein, Percutaneous Approach (ICD-10-PCS; 2017-07-14)
DX: A41.51 Sepsis due to Escherichia coli [E. coli] (principal); N17.9 Acute kidney failure, unspecified; E11.43 Type 2 diabetes mellitus with diabetic autonomic (poly)neuropathy; K31.84 Gastroparesis; F11.20 Opioid dependence, uncomplicated; N39.0 Urinary tract infection, site not specified; B96.20 Unspecified Escherichia coli [E. coli] as the cause of diseases classified elsewhere; Z79.4 Long term (current) use of insulin; T83.022A Displacement of nephrostomy catheter, initial encounter; D63.8 Anemia in other chronic diseases classified elsewhere; F31.9 Bipolar disorder, unspecified; M06.9 Rheumatoid arthritis, unspecified; Z79.02 Long term (current) use of antithrombotics/antiplatelets
CPT/HCPCS: 36430; 50431; 71010; 74176; 80048; 80053; 80307; 81001; 82272; 82550; 82948; 83605; 83735; 84484; 84702; 85007; 85025; 85027; 85610; 85730; 86850; 86900; 86901; 86920; 87040; 87077; 87086; 87186; 87205; 93005; 96361; 96365; 96375; 99152; 99153; C1769; C1887; J0696; J1335; J1815; J2250; J2270; J2405; J2543; J7030; P9016; Q9967

== ENCOUNTER 2017-10-31 00:51 | Inpatient (IN) | payer MEDICAID ==
[2017-10-31] VITALS (39 sets, daily range): BP systolic 99–159; BP diastolic 50–78; PULSE 70–124; RESP 13–34; TEMP 97.8–98.8; O2SAT 97–100
[~2017-10-31] VITALS: Ht 165.1 cm; Wt 61.8 kg
[~2017-10-31 00:51] MED LIST changes: -BUSP1TAB PO; +LANTUS2P SQ; -LEVEMIR SQ; +SULF1TAB23 PO
[2017-10-31] MEDS ORDERED: HYDR4TAB PO (02:31)
[2017-10-31] MEDS ORDERED: SOMA250T PO (02:31)
[2017-10-31] MEDS ORDERED: XANA2TAB2 PO (02:31)
[2017-10-31] MEDS ORDERED: SODIUM CHLOR 0.9% 1000 ML INJ 1,000 ML IV SCH (03:29)
[2017-10-31] MEDS ORDERED: MORPHINE SULFATE 2 MG/ML SYRINGE IV PUSH ONE (03:30)
[2017-10-31] MEDS ORDERED: SODIUM CHLORIDE 0.9% FLUSH 10 ML FLUSH IV FLUSH PRN ×2 (03:30→05:15)
[2017-10-31] MEDS ORDERED: ONDANSETRON HCL 4 MG/2 ML VIAL IVP ONE (03:30)
[2017-10-31] MEDS ORDERED: SODIUM CHLOR 0.9% 1000 ML INJ 1,000 ML IV ONE (03:30)
--- NOTE | 2017-10-31 03:50 | PD ---
HPI Chief Complaint: GI Complaint Time Seen by Provider: 03:29 Travel History International Travel<30 days: No Contact w/Intl Traveler<30days: No Traveled to known affect area: No History of Present Illness HPI 47-year-old female presents to the emergency department for multiple episodes of vomiting abdominal pain and diarrhea. Patient states symptoms began 2-3 days ago. Patient states last week had a pain pump placed and since that time has not felt well but denies fever or chills. Patient's had no shortness of breath or cough. Patient denies pleuritic chest pain or chest pain. Patient is diabetic and is afraid that after multiple days of vomiting that she could be going into DKA. Patient states that after her first day she thought she get better so did not come into the emergency department at that time. Blood sugar this morning was in the 400 range. Patient also takes Dilaudid on a daily basis and Xanax on a daily basis and since vomiting and diarrhea has not taken any of these medications and is afraid she is also in opiate and benzodiazepine withdrawal. Patient requests antiemetic. Patient has not contacted her surgeon or her primary care provider[facility] Past Medical History Narrative Medical Arthritis anxiety diabetes chronic pain syndrome gastroparesis DVT tubal ligation renal insufficiency pain pump insertion; no tobacco use; nursing notes reviewed Arthritis: Yes (rheumatoid arthritis) Asthma: No Autoimmune Disease: No Blood Disorders: No Anxiety: Yes Depression: No Heart Rhythm Problems: No Cancer: No Cardiovascular Problems: No High Cholesterol: No Chemotherapy: No Chest Pain: No Congestive Heart Failure: No COPD: No Cerebrovascular Accident: No Diabetes: Yes Patient Takes Glucophage: No Diminished Hearing: No Deep Vein Thrombosis: Yes (BILATERAL ARMS) Endocrine: Yes Gastrointestinal Disorders: Yes (gastroparesis takes zofran ) GERD: No Genitourinary: Yes Hiatal Hernia: Yes (and esophogeal tear) Immune Disorder: No Kidney Stones: No Musculoskeletal: Yes Neurologic: No Psychiatric: Yes (PTSD) Respiratory: No Immunizations Current: No Migraines: No Myocardial Infarction: No Radiation Therapy: No Renal Failure: Yes (JARVIS) Seizures: No Sickle Cell Disease: No Sleep Apnea: No Thyroid Disease: No Ulcer: No Tetanus Vaccination: < 5 Years Influenza Vaccination: Yes ?: Not : 3 Para: 3 Tubal Ligation: Yes Past Surgical History Abdominal Surgery: Yes (gall bladder removal) AICD: No Arteriovenous Shunt: No Cardiac Surgery: No Ear Surgery: No Endocrine Surgery: No Eye Surgery: No Genitourinary Surgery: Yes (nephrostomy tube placement) Gynecologic Surgery: Yes (ovarian cysts) Insulin Pump: No Joint Replacement: No Oral Surgery: No Pacemaker: No Thoracic Surgery: No Other Surgery: Yes (INTERNAL MEDICATION PUMP IN BACK 10/23/17) Social History Alcohol Use: No Tobacco Use: No Substance Use: Yes Allergies-Medications (Allergen,Severity, Reaction): Coded Allergies: ketorolac (Unverified Allergy, Severe, Anaphylaxis, 10/31/17) Reported Meds & Prescriptions Reported Meds & Active Scripts Active Gnp Senna Plus 8.6-50 mg (Sennosides-Docusate Sodium) 8.6 Mg-50 Mg Tab 1 Tab PO BID 30 Days Neurontin (Gabapentin) 400 Mg Cap 400 Mg PO TID 30 Days Eliquis (Apixaban) 5 Mg Tab 5 Mg PO BID 30 Days Tegretol (Carbamazepine) 200 Mg Tab 200 Mg PO BID 30 Days Seroquel (Quetiapine Fumarate) 200 Mg Tab 200 Mg PO HS 30 Days Novolog Inj (Insulin Aspart) 100 Unit/Ml Inj 1 Units SQ ACHS SLIDING SCALE 30 Days as diretcted Reported Xanax (Alprazolam) 2 Mg Tab 2 Mg PO Q6HR Soma (Carisoprodol) 250 Mg Tab 250 Mg PO TID Hydromorphone (Hydromorphone HCl) 4 Mg Tab 4 Mg PO Q6H Lantus Inj (Insulin Glargine) 1,000 Unit/10 Ml Vial 30 Units SQ DAILY AM Lantus Inj (Insulin Glargine) 1,000 Unit/10 Ml Vial 20 Units SQ HS Review of Systems Except as stated in HPI: all other systems reviewed are Neg General / Constitutional: No: Fever, Chills HENT: No: Congestion Cardiovascular: No: Chest Pain or Discomfort Respiratory: No: Shortness of Breath Gastrointestinal: Positive: Nausea, Vomiting, Diarrhea, Abdominal Pain Genitourinary: Positive: Decreased Urinary Output, No: Dysuria Musculoskeletal: No: Myalgias, Arthralgias Skin: No Rash Neurologic: Positive: Weakness, No: Dizziness, Syncope, Focal Abnormalities, Coordination Problem Psychiatric: No: Anxiety Hematologic/Lymphatic: No: Easy Bruising Physical Exam Narrative GENERAL: Well-developed well-nourished female no acute distress no respiratory distress SKIN: Warm and dry. Right lower back and buttock pain pump insertion site Steri -Strips are dry and in place no induration no erythema no tenderness no purulent drainage distally incision site is dry and clean without redness tenderness induration or drainage. HEAD: Normocephalic. EYES: No scleral icterus. No injection or drainage. NECK: Supple, trachea midline. No JVD or lymphadenopathy. CARDIOVASCULAR: Increased regular rate and rhythm without murmurs, gallops, or rubs. RESPIRATORY: Breath sounds equal bilaterally. No accessory muscle use. GASTROINTESTINAL: Abdomen soft, non-tender, nondistended. MUSCULOSKELETAL: No cyanosis, or edema. BACK: Nontender without obvious deformity. No CVA tenderness. Data Data Last Documented VS Vital Signs Date Time Temp Pulse Resp B/P (MAP) Pulse Ox O2 Delivery O2 Flow Rate FiO2 10/31/17 04:11 16 98 Room Air 10/31/17 00:57 98.6 90 145/78 (100) Orders Orders Complete Blood Count With Diff (10/31/17 03:29) Comprehensive Metabolic Panel (10/31/17 03:29) Lipase (10/31/17 03:29) Lactic Acid (10/31/17 03:29) Prothrombin Time / Inr (Pt) (10/31/17 03:29) Act Partial Throm Time (Ptt) (10/31/17 03:29) Urinalysis - C+S If Indicated (10/31/17 03:29) Iv Access Insert/Monitor (10/31/17 03:29) Ecg Monitoring (10/31/17 03:29) Oximetry (10/31/17 03:29) Ondansetron Inj (Zofran Inj) (10/31/17 03:30) Sodium Chlor 0.9% 1000 Ml Inj (Ns 1000 M (10/31/17 03:29) Sodium Chloride 0.9% Flush (Ns Flush) (10/31/17 03:30) Electrocardiogram (10/31/17 03:29) Chest, Single Ap (10/31/17 03:29) Sodium Chlor 0.9% 1000 Ml Inj (Ns 1000 M (10/31/17 03:30) Magnesium (Mg) (10/31/17 03:29) Morphine Inj (Morphine Inj) (10/31/17 03:30) Insulin Human Regular Inj (Novolin R Inj (10/31/17 04:15) Beta Hydroxybutyrate (Acetone) (10/31/17 03:50) Metoclopramide Inj (Reglan Inj) (10/31/17 04:45) Blood Gas Venous Ph (10/31/17 04:37) Pipe Fitter / Telemetry MARIAM.Q8H (10/31/17 04:37) ^ Insert Iv (10/31/17 04:37) Diet Npo (10/31/17 Breakfast) Sodium Chlor 0.9% 1000 Ml Inj (Ns 1000 M (10/31/17 04:37) Dext 5%-Nacl 0.9% 1000 Ml Inj (D5w-Ns 10 (10/31/17 04:37) Insulin Regular (Iv Infusion) (Novolin R (10/31/17 04:45) Potassium Chlor 40 Meq Premix (Kcl 40 Me (10/31/17 04:45) Potassium Chlor 40 Meq Premix (Kcl 40 Me (10/31/17 04:45) Potassium Chlor 20 Meq Premix (Kcl 20 Me (10/31/17 04:45) Potassium Chlor 20 Meq Premix (Kcl 20 Me (10/31/17 04:45) Potassium Chlor 20 Meq Premix (Kcl 20 Me (10/31/17 04:45) Potassium Chlor 20 Meq Premix (Kcl 20 Me (10/31/17 04:45) Potassium Chlor 20 Meq Premix (Kcl 20 Me (10/31/17 04:45) Potassium Chlor 20 Meq Premix (Kcl 20 Me (10/31/17 04:45) Sodium Bicarbonate 8.4% Inj (Sodium Bica (10/31/17 04:45) Sodium Bicarbonate 8.4% Inj (Sodium Bica (10/31/17 04:45) Sodium Phosphate Inj (Sodium Phosphate I (10/31/17 04:45) Hemoglobin (Hgb) A1c (10/31/17 04:37) Basic Metabolic Panel (Bmp) (10/31/17 09:37) Basic Metabolic Panel (Bmp) (10/31/17 15:37) Basic Metabolic Panel (Bmp) (10/31/17 21:37) Basic Metabolic Panel (Bmp) (11/01/17 03:37) Magnesium (Mg) (10/31/17 09:37) Magnesium (Mg) (10/31/17 15:37) Magnesium (Mg) (10/31/17 21:37) Magnesium (Mg) (11/01/17 03:37) Phosphorus (Po4) (10/31/17 09:37) Phosphorus (Po4) (10/31/17 15:37) Phosphorus (Po4) (10/31/17 21:37) Phosphorus (Po4) (11/01/17 03:37) Beta Hydroxybutyrate (Acetone) (10/31/17 15:37) Beta Hydroxybutyrate (Acetone) (11/01/17 03:37) Ct Abd/Pel W/O Iv Contrast (10/31/17 ) Admit Order (Ed Use Only) (10/31/17 ) Pipe Fitter / Telemetry MARIAM.Q8H (10/31/17 05:04) Activity Bed Rest (10/31/17 05:04) Notify Dr: Other (10/31/17 05:04) Admit To Inpatient (10/31/17 ) Vital Signs (Adult) Q4H (10/31/17 05:04) Sodium Chloride 0.9% Flush (Ns Flush) (10/31/17 05:15) Sodium Chloride 0.9% Flush (Ns Flush) (10/31/17 09:00) Acetaminophen (Tylenol) (10/31/17 05:15) Ondansetron Inj (Zofran Inj) (10/31/17 05:15) Basic Metabolic Panel (Bmp) (11/01/17 06:00) Complete Blood Count With Diff (11/01/17 06:00) Naloxone Inj (Narcan Inj) (10/31/17 05:15) Docusate Sodium-Senna (Tess-Colace) (10/31/17 09:00) Magnesium Hydroxide Liq (Milk Of Magnesi (10/31/17 05:15) Sennosides (Senokot) (10/31/17 05:15) Bisacodyl Supp (Dulcolax Supp) (10/31/17 05:15) Lactulose Liq (Lactulose Liq) (10/31/17 05:15) Inpatient Certification (10/31/17 ) Labs Laboratory Tests Test 10/31/17 03:50 10/31/17 05:00 White Blood Count 12.4 TH/MM3 Red Blood Count 3.10 MIL/MM3 Hemoglobin 10.4 GM/DL Hematocrit 32.4 % Mean Corpuscular Volume 104.3 FL Mean Corpuscular Hemoglobin 33.7 PG Mean Corpuscular Hemoglobin Concent 32.3 % Red Cell Distribution Width 14.9 % Platelet Count 559 TH/MM3 Mean Platelet Volume 10.0 FL Neutrophils (%) (Auto) 88.4 % Lymphocytes (%) (Auto) 9.4 % Monocytes (%) (Auto) 1.3 % Eosinophils (%) (Auto) 0.5 % Basophils (%) (Auto) 0.4 % Neutrophils # (Auto) 10.9 TH/MM3 Lymphocytes # (Auto) 1.2 TH/MM3 Monocytes # (Auto) 0.2 TH/MM3 Eosinophils # (Auto) 0.1 TH/MM3 Basophils # (Auto) 0.0 TH/MM3 CBC Comment DIFF FINAL Differential Comment Prothrombin Time 11.6 SEC Prothromb Time International Ratio 1.1 RATIO Activated Partial Thromboplast Time 25.8 SEC Blood Urea Nitrogen 28 MG/DL Creatinine 1.50 MG/DL Random Glucose 425 MG/DL Total Protein 9.0 GM/DL Albumin 3.9 GM/DL Calcium Level 9.6 MG/DL Magnesium Level 2.4 MG/DL Alkaline Phosphatase 281 U/L Aspartate Amino Transf (AST/SGOT) 43 U/L Alanine Aminotransferase (ALT/SGPT) 27 U/L Total Bilirubin 0.4 MG/DL Sodium Level 130 MEQ/L Potassium Level 5.3 MEQ/L Chloride Level 91 MEQ/L Carbon Dioxide Level 11.5 MEQ/L Anion Gap 28 MEQ/L Estimat Glomerular Filtration Rate 37 ML/MIN Lactic Acid Level 2.4 mmol/L Lipase 61 U/L B-Hydroxybutyrate 10.51 MMOL/L Venous Blood pH 7.09 MDM Medical Decision Making Medical Screen Exam Complete: Yes Emergency Medical Condition: Yes Medical Record Reviewed: Yes Interpretation(s) EKG sinus tachycardia rate [address] elevation prominent T waves CBC & BMP Diagram 10/31/17 03:50 Total Protein 9.0 H, Albumin 3.9, Calcium Level 9.6, Magnesium Level 2.4, Alkaline Phosphatase 281 H, Aspartate Amino Transf (AST/SGOT) 43 H, Alanine Aminotransferase (ALT/SGPT) 27, Total Bilirubin 0.4 Vital Signs Date Time Temp Pulse Resp B/P (MAP) Pulse Ox O2 Delivery O2 Flow Rate FiO2 10/31/17 04:11 16 98 Room Air 10/31/17 04:02 16 10/31/17 00:57 98.6 90 24 145/78 (100) 100 Last Impressions Chest X-Ray 10/31/17 0329 Signed Impressions: Service Date/Time: Tuesday, October 31, 2017 03:31 - CONCLUSION: No acute disease. Bill Spear MD Differential Diagnosis Gastroenteritis, dehydration, uncontrolled diabetes, DKA, opiate withdrawal, benzodiazepine withdrawal, electrolyte disturbance Narrative Course Patient placed on cardiac cath lab technologist IV access obtained specimens collected and sent for resulting; patient administered normal saline bolus 2 L Zofran 4 mg IV 1 and morphine 2 mg IV 1 Patient given additional antiemetic Reglan 10 mg IV Chest x-ray no lobar infiltrate CBC is automated differential white count is elevated at 12,400 and lactic acid is identified to be elevated at 2.4 Patient given weight-based insulin 6 units IV Metabolic panel resulted patient has a bicarb of 11.5 with an anion gap of 28 and blood sugar of 425 patient is in DKA venous pH 7.09; DKA protocol initiated ; call placed to medicine service for admission patient given additional liter of normal saline Patient given Dilaudid 1 mg IV nausea improved not requesting any medication for nausea or vomiting; sent to CT for abdomen pelvis without contrast as patient has acute kidney injury/renal insufficiency consistent with DKA and dehydration BUN 28/Cr 1.5 /gfr 37 BHB: 10.51 Critical Care Narrative Aggregate critical care time was 35 minutes. Time to perform other separately billable procedures was not included in the critical care time. My time did not include minutes spent treating any other patients simultaneously or on activities that did not directly contribute to the patient's treatment. The services I provided to this patient were to treat and/or prevent clinically significant deterioration that could result in: Arrhythmia, cardiac arrest, sepsis, I provided critical care services requiring my management, as noted below: Chart data review, documentation time, medication orders and management, vital sign assessments/reviewing monitor data, ordering and reviewing lab tests, ordering and interpreting/reviewing x-rays and diagnostic studies, care of the patient and discussion of the patient with the admitting physicians. Procedures Procedure Narrative CENTRAL VENOUS LINE: The site was prepped with Betadine and sterilely draped. It was infiltrated with 1% lidocaine plain. The deep vein was cannulated using normal Seldinger technique. A triple lumen central line was placed in the right femoral vein site and secured with simple interrupted suture. The site was sterilely dressed. The patient tolerated the procedure well. Sepsis Criteria SIRS Criteria (2 or more): RR > 20 or PaCO2 < 32, WBC > 56175, < 4000 or > 10 % bands Severe Sepsis (+one): Lactate >2 Physician Communication Physician Communication discussed with Dr Reese for admission -->admit to ICU Diagnosis Primary Impression: DKA (diabetic ketoacidoses) Admitting Information Admitting Physician Requests: Admit Yamilka Marshall MD Oct 31, 2017 03:50
--- NOTE | 2017-10-31 03:54 | RADRPT ---
EXAM DATE/TIME: 10/31/2017 03:31 [facility] COMPARISON: CHEST SINGLE AP, July 11, 2017, 23:31. INDICATIONS : Chest discomfort, vomiting for 3 days MEDICAL HISTORY : Myocardial infarction. Diabetes mellitus type II. SURGICAL HISTORY : None. ENCOUNTER: Initial ACUITY: 3 days PAIN SCORE: 0/10 LOCATION: Bilateral chest FINDINGS: A single view of the chest demonstrates the lungs to be symmetrically aerated without evidence of mas s, infiltrate or effusion. The cardiomediastinal contours are unremarkable. Osseous structures are intact. CONCLUSION: No acute disease. Bill Spear MD on October 31, 2017 at 3:50 Board Certified Radiologist. This report was verified electronically.
[2017-10-31 04:15] LABS: AUTOMATED NEUTROPHIL # 10.9 TH/MM3 (1.8-7.7); BASOPHIL % 0.4 % (0.0-2.0); EOSINOPHIL # 0.1 TH/MM3 (0-0.4); EOSINOPHIL % 0.5 % (0.0-4.0); HEMATOCRIT 32.4 % (35.0-46.0); HEMOGLOBIN 10.4 GM/DL (11.6-15.3); LYMPH % 9.4 % (9.0-44.0); LYMPHOCYTE # 1.2 TH/MM3 (1.0-4.8); MEAN CELL VOLUME 104.3 FL (80.0-100.0); MEAN CORPUSCULAR HEMOGLOBIN 33.7 PG (27.0-34.0); MEAN CORPUSCULAR HGB CONC 32.3 % (32.0-36.0); MONO % 1.3 % (0.0-8.0); MONOCYTE # 0.2 TH/MM3 (0-0.9); NEUT % 88.4 % (16.0-70.0); PLATELET COUNT 559 TH/MM3 (150-450); RED CELL DISTRIBUTION WIDTH 14.9 % (11.6-17.2); WHITE BLOOD COUNT 12.4 TH/MM3 (4.0-11.0)
[2017-10-31] MEDS ORDERED: INSULIN HUMAN REGULAR 1,000 UNITS/10 ML VIAL IV PUSH ONE (04:15)
[2017-10-31 04:26] LABS: CHLORIDE 91 MEQ/L (98-107); SODIUM (NA) 130 MEQ/L (136-145)
[2017-10-31 04:28] LABS: INTERNATIONAL NORMALIZED RATIO 1.1 RATIO; PROTHROMBIN TIME - PATIENT 11.6 SEC (9.8-11.6)
[2017-10-31 04:30] LABS: ALBUMIN 3.9 GM/DL (3.4-5.0); BICARBONATE 11.5 MEQ/L (21.0-32.0); CALCIUM 9.6 MG/DL (8.5-10.1)
[2017-10-31 04:31] LABS: BLOOD UREA NITROGEN 28 MG/DL (7-18); GLUCOSE,RANDOM 425 MG/DL (74-106); MAGNESIUM 2.4 MG/DL (1.5-2.5)
[2017-10-31 04:34] LABS: ALT (GPT) 27 U/L (10-53); AST (GOT) 43 U/L (15-37); GLOMERULAR FILTRATION RATE 37 ML/MIN (>89)
[2017-10-31 04:35] LABS: TOTAL BILIRUBIN ADULT 0.4 MG/DL (0.2-1.0)
[2017-10-31] MEDS: DEXT 5%-NACL 0.9% 1000 ML INJ 1,000 ML IV SCH ×2 (04:37→19:56)
[2017-10-31] MEDS: SODIUM CHLOR 0.9% 1000 ML INJ 1,000 ML IV SCH ×2 (04:37→08:37)
[2017-10-31 04:38] LABS: ALKALINE PHOSPHATASE 281 U/L (45-117)
[2017-10-31] MEDS ORDERED: SODIUM PHOSPHATE INJ 15 MMOL in SODIUM CHLORIDE 0.9% INJ 100 ML IV PRN (04:45)
[2017-10-31] MEDS ORDERED: POTASSIUM CHLOR 20 MEQ PREMIX 100 ML IV PRN ×6 (04:45)
[2017-10-31] MEDS ORDERED: POTASSIUM CHLOR 40 MEQ PREMIX 100 ML IV PRN (04:45)
[2017-10-31] MEDS ORDERED: METOCLOPRAMIDE HCL 10 MG/2 ML VIAL IV PUSH ONE (04:45)
[2017-10-31] MEDS ORDERED: SODIUM BICARBONATE 8.4% SOLN 50 MEQ/50 ML VIAL IV PUSH PRN ×2 (04:45)
[2017-10-31] MEDS ORDERED: ONDANSETRON HCL 4 MG/2 ML VIAL IVP PRN (05:15)
[2017-10-31] MEDS ORDERED: NALOXONE HCL 0.4 MG/ML AMP IV PUSH PRN (05:15)
[2017-10-31] MEDS ORDERED: LACTULOSE SYRUP 20 GM/30 ML CUP PO PRN (05:15)
[2017-10-31] MEDS ORDERED: SENNOSIDES 8.6 MG TAB PO PRN (05:15)
[2017-10-31] MEDS ORDERED: MAGNESIUM HYDROXIDE SUSP 30 ML CUP PO PRN (05:15)
[2017-10-31] MEDS ORDERED: BISACODYL 10 MG SUPP RECTAL PRN (05:15)
[2017-10-31] MEDS ORDERED: ACETAMINOPHEN 325 MG TAB PO PRN (05:15)
[2017-10-31] MEDS: HYDROmorphone HCL PF 2 MG/ML VIAL IV PUSH PRN ×5 (05:43→22:09)
[2017-10-31] MEDS: INSULIN REGULAR (IV INFUSION) 100 UNITS in SODIUM CHLORIDE 0.9% INJ 99 ML IV PRN ×2 (06:00→22:18)
--- NOTE | 2017-10-31 06:18 | RADRPT ---
EXAM DATE/TIME: 10/31/2017 04:48 [facility] COMPARISON: CT ABDOMEN & PELVIS W/O CONTRAST, July 12, 2017, 3:21. INDICATIONS : Abdominal pain. Nausea. Vomiting. Diarrhea. ORAL CONTRAST: No oral contrast ingested. RADIATION DOSE: 11.64 CTDIvol (mGy) ; Patient motion MEDICAL HISTORY : Diabetes mellitus type 2. Renal failure, acute. Hernia, hiatal. SURGICAL HISTORY : Cholecystectomy. Tubal ligation.Pain pump. ENCOUNTER: Initial ACUITY: 2 days PAIN SCALE: 9/10 LOCATION: upper quadrant lower quadrant TECHNIQUE: Volumetric scanning of the abdomen and pelvis was performed. Using automated exposure control and ad justment of the mA and/or kV according to patient size, radiation dose was kept as low as reasonably achievable to obtain optimal diagnostic quality images. DICOM format image data is available electro nically for review and comparison. FINDINGS: LOWER LUNGS: The visualized lower lungs are clear. LIVER: Homogeneous density without lesion. There is no dilation of the biliary tree. No calcified gallston es. SPLEEN: Normal size without lesion. PANCREAS: Within normal limits. KIDNEYS: Normal in size and shape. There is no mass, stone, or hydronephrosis. ADRENAL GLANDS: Within normal limits. VASCULAR: There is no aortic aneurysm. BOWEL/MESENTERY: The stomach, small bowel, and colon demonstrate no acute abnormality. There is no free intraperitone al air or fluid. ABDOMINAL WALL: Within normal limits. RETROPERITONEUM: There is no lymphadenopathy. BLADDER: No wall thickening or mass. REPRODUCTIVE: Within normal limits. INGUINAL: There is no lymphadenopathy or hernia. MUSCULOSKELETAL: Interval placement of a spinal stimulator with control pack over the right flank region. CONCLUSION: No acute CT findings in the abdomen or pelvis. Bill Spear MD on October 31, 2017 at 6:11 Board Certified Radiologist. This report was verified electronically.
[2017-10-31] MEDS: DOCUSATE SODIUM 50 MG/SENNA 8.6 MG TAB PO SCH ×2 (09:00→21:00)
[2017-10-31] MEDS ORDERED: CHLORHEXIDINE GLUCONATE 2 % 1 PACK (2 CLOTHS)(extra cloths) TOPICAL PRN (09:30)
[2017-10-31 09:44] LABS: HEMATOCRIT 25.3 % (35.0-46.0); HEMOGLOBIN 8.8 GM/DL (11.6-15.3); MEAN CELL VOLUME 101.7 FL (80.0-100.0); MEAN CORPUSCULAR HEMOGLOBIN 35.4 PG (27.0-34.0); MEAN CORPUSCULAR HGB CONC 34.8 % (32.0-36.0); MEAN PLATELET VOLUME 7.8 FL (7.0-11.0); PLATELET COUNT 620 TH/MM3 (150-450); RED BLOOD COUNT 2.49 MIL/MM3 (4.00-5.30); RED CELL DISTRIBUTION WIDTH 14.6 % (11.6-17.2); WHITE BLOOD COUNT 16.5 TH/MM3 (4.0-11.0)
[2017-10-31 10:00] LABS: BICARBONATE 17.3 MEQ/L (21.0-32.0); CALCIUM 8.1 MG/DL (8.5-10.1); CREATININE 1.4 MG/DL (0.50-1.00); PHOSPHORUS 1.9 MG/DL (2.5-4.9)
--- NOTE | 2017-10-31 12:07 | HHI.HP ---
[facility] Service [facility] Primary Care Physician Sukumar Logan MD Admission Diagnosis dka Diagnoses: (1) DKA (diabetic ketoacidoses) Diagnosis: Principal (2) Diabetes mellitus Diagnosis: Principal Travel History International Travel<30 Days: No Contact w/Intl Traveler <30 Da: No Traveled to Known Affected Are: No History of Present Illness Mrs. Schmid is a 47-year-old female. She has a history of type 1 diabetes. Her last episode of DKA was approximately 1 year ago. She says that she has felt ill for the past 2 days and came in to the ER for evaluation. She was found to have DKA and is admitted on IV insulin drip. No etiology for her condition is found. No fevers. She does have a history of surgery between 1 and 2 weeks ago for pain pump implant. Primary complaints right now are nausea, diarrhea, and stomach pain. No other complaints. Review of Systems Constitutional: DENIES: Fatigue, Fever, Chills Eyes: DENIES: Diplopia, Eye inflammation, Eye pain Ears, nose, mouth, throat: DENIES: Hearing loss, Vertigo, Nasal discharge Respiratory: DENIES: Cough, Wheezing, Shortness of breath Cardiovascular: DENIES: Chest pain, Palpitations, Syncope Gastrointestinal: COMPLAINS OF: Abdominal pain, Diarrhea, Nausea, Vomiting, DENIES: Black stools, Bloody stools Musculoskeletal: COMPLAINS OF: Joint pain, Muscle aches, Stiffness, Joint Swelling, Back pain, Neck pain Integumentary: DENIES: Abnormal pigmentation, Pruritus, Rash Hematologic/lymphatic: DENIES: Bruising, Lymphadenopathy Immunologic/allergic: DENIES: Eczema, Urticaria Neurologic: DENIES: Abnormal gait, Headache, Paresthesias Psychiatric: DENIES: Anxiety, Confusion, Hallucinations Past Family Social History Past Medical History Bipolar Disorder Anxiety Depression DM Opioid Dependence Obstructive Uropathy s/p Nephrostomy Tube Past Surgical History Cholecystectomy Nephrostomy Tube Reported Medications No alcohol abuse No smoking No illicit drug abuse Allergies: Coded Allergies: ketorolac (Unverified Allergy, Severe, Anaphylaxis, 10/31/17) Family History Diabetes Social History No smoking No alcohol abuse No illicit drug abuse Physical Exam Vital Signs Vital Signs Date Time Temp Pulse Resp B/P (MAP) Pulse Ox O2 Delivery O2 Flow Rate FiO2 10/31/17 07:25 10/31/17 07:24 10/31/17 06:16 16 10/31/17 05:52 108 16 150/72 (98) 100 Room Air 10/31/17 04:11 16 98 Room Air 10/31/17 04:02 16 10/31/17 00:57 98.6 90 24 145/78 (100) 100 Physical Exam GENERAL: NAD, A&Ox3 HEAD: Normocephalic. NECK: Supple, trachea midline. No lymphadenopathy. EYES: No scleral icterus. No injection or drainage. CARDIOVASCULAR: Regular rate and rhythm without murmurs, gallops, or rubs. RESPIRATORY: Breath sounds equal bilaterally. No accessory muscle use. GASTROINTESTINAL: Abdomen soft, non-tender, nondistended. MUSCULOSKELETAL: No cyanosis, or edema. SKIN: Warm and dry. NEURO: No focal neurological deficitis. Laboratory Laboratory Tests Test 10/31/17 03:50 10/31/17 05:00 10/31/17 09:25 White Blood Count 12.4 16.5 Red Blood Count 3.10 2.49 Hemoglobin 10.4 8.8 Hematocrit 32.4 25.3 Mean Corpuscular Volume 104.3 101.7 Mean Corpuscular Hemoglobin 33.7 35.4 Mean Corpuscular Hemoglobin Concent 32.3 34.8 Red Cell Distribution Width 14.9 14.6 Platelet Count 559 620 Mean Platelet Volume 10.0 7.8 Neutrophils (%) (Auto) 88.4 Lymphocytes (%) (Auto) 9.4 Monocytes (%) (Auto) 1.3 Eosinophils (%) (Auto) 0.5 Basophils (%) (Auto) 0.4 Neutrophils # (Auto) 10.9 Lymphocytes # (Auto) 1.2 Monocytes # (Auto) 0.2 Eosinophils # (Auto) 0.1 Basophils # (Auto) 0.0 CBC Comment DIFF FINAL Differential Comment Prothrombin Time 11.6 Prothromb Time International Ratio 1.1 Activated Partial Thromboplast Time 25.8 Blood Urea Nitrogen 28 29 Creatinine 1.50 1.40 Random Glucose 425 173 Total Protein 9.0 Albumin 3.9 Calcium Level 9.6 8.1 Magnesium Level 2.4 2.0 Alkaline Phosphatase 281 Aspartate Amino Transf (AST/SGOT) 43 Alanine Aminotransferase (ALT/SGPT) 27 Total Bilirubin 0.4 Sodium Level 130 142 Potassium Level 5.3 3.7 Chloride Level 91 109 Carbon Dioxide Level 11.5 17.3 Anion Gap 28 16 Estimat Glomerular Filtration Rate 37 40 Lactic Acid Level 2.4 1.4 Lipase 61 B-Hydroxybutyrate 10.51 Venous Blood pH 7.09 Phosphorus Level 1.9 Result Diagram: 10/31/1725 10/31/1725 Imaging Last Impressions Chest X-Ray 10/31/17 0329 Signed Impressions: Service Date/Time: Tuesday, October 31, 2017 03:31 - CONCLUSION: No acute disease. Bill Spear MD Abdomen/Pelvis CT 10/31/17 0000 Signed Impressions: Service Date/Time: Tuesday, October 31, 2017 04:48 - CONCLUSION: No acute CT findings in the abdomen or pelvis. MD Rico Avilai VTE Risk Assessment Caprini VTE Risk Assessment: No/Low Risk (score <= 1) Caprini Risk Assessment Model Point Value = 1 Point Value = 2 Point Value = 3 Point Value = 5 Age 41-60 Minor surgery BMI > 25 kg/m2 Swollen legs Varicose veins or History of unexplained or recurrent spontaneous Oral contraceptives or hormone replacement Sepsis (< 1 month) Serious lung disease, including pneumonia (< 1 month) Abnormal pulmonary function Acute myocardial infarction Congestive heart failure (< 1 month) History of inflammatory bowel disease Medical patient at bed rest Age 61-74 Arthroscopic surgery Major open surgery (> 45 min) Laparoscopic surgery (> 45 min) Malignancy Confined to bed (> 72 hours) Immobilizing plaster cast Central venous access Age >= 75 History of VTE Family history of VTE Factor V Leiden Prothrombin [id number] Lupus anticoagulant Anticardiolipin antibodies Elevated serum homocysteine Heparin-induced thrombocytopenia Other congenital or acquired thrombophilia Stroke (< 1 month) Elective arthroplasty Hip, pelvis, or leg fracture Acute spinal cord injury (< 1 month) Prophylaxis Regimen Total Risk Factor Score Risk Level Prophylaxis Regimen 0-1 Low Early ambulation 2 Moderate Order ONE of the following: *Sequential Compression Device (SCD) *Heparin 5000 units SQ BID 3-4 Higher Order ONE of the following medications: *Heparin 5000 units SQ TID *Enoxaparin/Lovenox 40 mg SQ daily (WT < 150 kg, CrCl > 30 mL/min) *Enoxaparin/Lovenox 30 mg SQ daily (WT < 150 kg, CrCl > 10-29 mL/min) *Enoxaparin/Lovenox 30 mg SQ BID (WT < 150 kg, CrCl > 30 mL/min) AND/OR *Sequential Compression Device (SCD) 5 or more Highest Order ONE of the following medications: *Heparin 5000 units SQ TID (Preferred with Epidurals) *Enoxaparin/Lovenox 40 mg SQ daily (WT < 150 kg, CrCl > 30 mL/min) *Enoxaparin/Lovenox 30 mg SQ daily (WT < 150 kg, CrCl > 10-29 mL/min) *Enoxaparin/Lovenox 30 mg SQ BID (WT < 150 kg, CrCl > 30 mL/min) AND *Sequential Compression Device (SCD) Assessment and Plan Problem List: (1) DKA (diabetic ketoacidoses) ICD Code: E13.10 - Other specified diabetes mellitus with ketoacidosis without coma Status: Acute Assessment and Plan 47-year-old female admitted secondary to DKA DKA Continue IV insulin drip Monitor in ICU Transition to long-acting insulin in the morning Follow potassium Follow other electrolytes Follow blood sugars Diabetic diet Bipolar Disorder Anxiety Depression Continue baseline treatments Opioid Dependence Continue current pain treatments Pain pump is not yet active s/p Nephrostomy Tube (Hx of Obstructive Uropathy) Follow clinically Follow renal function DVT prophylaxis Lovenox Physician Certification 2 Midnight Certification Type: Admission for Inpatient Services Order for Inpatient Services The services are ordered in accordance with Medicare regulations or non- Medicare payer requirements, as applicable. In the case of services not specified as inpatient-only, they are appropriately provided as inpatient services in accordance with the 2-midnight benchmark. Estimated LOS (days): 3 days is the estimated time the patient will need to remain in the hospital, assuming treatment plan goals are met and no additional complications. Post-Hospital Plan: Home Jonny Villanueva MD Oct 31, 2017 12:07
[2017-10-31] MEDS: ONDANSETRON HCL 4 MG/2 ML VIAL IVP PRN ×3 (13:22→22:08)
[2017-10-31] MEDS ORDERED: LOPERAMIDE HCL SOLN 2 MG/10 ML UDC PO PRN (14:30)
[2017-10-31] MEDS: LORazepam 2 MG/ML VIAL IV PUSH PRN (14:43)
[2017-10-31] MEDS ORDERED: METOCLOPRAMIDE HCL 10 MG/2 ML VIAL IV PUSH PRN (15:00)
[2017-10-31 17:54] LABS: CALCIUM 8.5 MG/DL (8.5-10.1)
[2017-10-31 17:55] LABS: BICARBONATE 23.6 MEQ/L (21.0-32.0); MAGNESIUM 2.1 MG/DL (1.5-2.5)
[2017-10-31 17:58] LABS: CREATININE 1.3 MG/DL (0.50-1.00); PHOSPHORUS 1.8 MG/DL (2.5-4.9)
[2017-10-31] MEDS ORDERED: CARISOPRODOL 250 MG PO SCH (18:00)
[2017-10-31] MEDS: GABAPENTIN 400 MG CAP PO SCH (19:46)
[2017-10-31] MEDS: POTASSIUM CHLOR 40 MEQ PREMIX 100 ML IV PRN ×2 (19:47→21:52)
--- NOTE | 2017-10-31 19:53 | EKG ---
Date Performed: 10/31/2017 Time Performed: 03:47:35 PTAGE: 47 years EKG: SINUS TACHYCARDIA WITH SHORT OK INTERVAL ABNORMAL RHYTHM ECG Since the PREVIOUS TRACING , no significant change noted PREVIOUS TRACIN07/11/2017 23.26 DOCTOR: Favian Goodman Interpretating Date/Time 10/31/2017 19:52:42
[2017-10-31] MEDS: carBAMazepine 200 MG TAB PO SCH (20:40)
[2017-10-31] MEDS: APIXABAN 5 MG TABLET PO SCH (20:40)
[2017-10-31] MEDS: QUEtiapine FUMARATE 200 MG TAB PO SCH (20:40)
[2017-10-31] MEDS: INSULIN DETEMIR 100 UNITS/ML VIAL SQ SCH (21:00)
[2017-10-31] MEDS: SODIUM CHLORIDE 0.9% FLUSH 10 ML FLUSH IV FLUSH SCH ×2 (22:18→22:19)
[2017-11-01] VITALS (21 sets, daily range): BP systolic 101–142; BP diastolic 47–77; PULSE 70–94; RESP 8–31; TEMP 98–98.9; O2SAT 93–99
[2017-11-01] MEDS: LORazepam 2 MG/ML VIAL IV PUSH PRN ×2 (00:11→08:53)
[2017-11-01 00:35] LABS: BICARBONATE 23.7 MEQ/L (21.0-32.0); CALCIUM 8.2 MG/DL (8.5-10.1); CREATININE 1.1 MG/DL (0.50-1.00); MAGNESIUM 2.1 MG/DL (1.5-2.5); PHOSPHORUS 1.3 MG/DL (2.5-4.9)
[2017-11-01] MEDS: DEXT 5%-NACL 0.9% 1000 ML INJ 1,000 ML IV SCH ×2 (00:57→06:35)
[2017-11-01] MEDS: ONDANSETRON HCL 4 MG/2 ML VIAL IVP PRN ×3 (02:14→11:06)
[2017-11-01] MEDS: HYDROmorphone HCL PF 2 MG/ML VIAL IV PUSH PRN ×3 (02:14→11:08)
[2017-11-01] MEDS ORDERED: CHLORHEXIDINE GLUCONATE 2 % 1 PACK (2 CLOTHS)(taper/protocol) TOPICAL SCH (04:00)
[2017-11-01 06:08] LABS: HEMATOCRIT 23.6 % (35.0-46.0); HEMOGLOBIN 7.9 GM/DL (11.6-15.3); MEAN CELL VOLUME 102.9 FL (80.0-100.0); MEAN CORPUSCULAR HEMOGLOBIN 34.1 PG (27.0-34.0); MEAN CORPUSCULAR HGB CONC 33.2 % (32.0-36.0); MEAN PLATELET VOLUME 7.5 FL (7.0-11.0); PLATELET COUNT 474 TH/MM3 (150-450); RED CELL DISTRIBUTION WIDTH 14.7 % (11.6-17.2)
[2017-11-01 06:17] LABS: CHLORIDE 111 MEQ/L (98-107); SODIUM (NA) 141 MEQ/L (136-145)
[2017-11-01 06:21] LABS: BANDS 6 % (0-6); LYMPHOCYTES 9 % (9-44); MONOCYTES 8 % (0-8); NEUTROPHIL # MANUAL DIFF 9.8 TH/MM3 (1.8-7.7); POLYS (SEG NEUTROPHILS) 76 % (16-70)
[2017-11-01 06:23] LABS: CALCIUM 7.8 MG/DL (8.5-10.1)
[2017-11-01 06:34] LABS: ALBUMIN 2.9 GM/DL (3.4-5.0); ALKALINE PHOSPHATASE 178 U/L (45-117); ALT (GPT) 15 U/L (10-53); AST (GOT) 11 U/L (15-37); BLOOD UREA NITROGEN 15 MG/DL (7-18); GLOMERULAR FILTRATION RATE 59 ML/MIN (>89); GLUCOSE,RANDOM 176 MG/DL (74-106); MAGNESIUM 1.9 MG/DL (1.5-2.5); PHOSPHORUS 1.2 MG/DL (2.5-4.9); TOTAL BILIRUBIN ADULT 0.1 MG/DL (0.2-1.0); TOTAL PROTEIN 6.5 GM/DL (6.4-8.2)
[2017-11-01] MEDS: APIXABAN 5 MG TABLET PO SCH ×2 (08:54→19:22)
[2017-11-01] MEDS: GABAPENTIN 400 MG CAP PO SCH ×3 (08:54→19:23)
[2017-11-01] MEDS: SODIUM CHLORIDE 0.9% FLUSH 10 ML FLUSH IV FLUSH SCH ×2 (08:54→19:23)
[2017-11-01] MEDS: carBAMazepine 200 MG TAB PO SCH ×2 (08:55→19:22)
[2017-11-01] MEDS: DOCUSATE SODIUM 50 MG/SENNA 8.6 MG TAB PO SCH ×2 (08:55→19:23)
[2017-11-01] MEDS ORDERED: INSULIN DETEMIR 100 UNITS/ML VIAL SQ SCH (09:00)
[2017-11-01] MEDS: CARISOPRODOL 350 MG TAB PO PRN ×2 (10:05→19:26)
--- NOTE | 2017-11-01 13:46 | HHI.DCPOC ---
Discharge Care Plan Diagnosis: (1) DKA (diabetic ketoacidoses) Goals to Promote Your Health * To prevent worsening of your condition and complications * To maintain your health at the optimal level Directions to Meet Your Goals Take your medications as prescribed Follow your dietary instruction Follow activity as directed Keep your appointments as scheduled Take your immunizations and boosters as scheduled If your symptoms worsen call your PCP, if no PCP go to Urgent Care Center or Emergency Room Smoking is Dangerous to Your Health. Avoid second hand smoke Call the 24-hour hour crisis hotline for domestic abuse at Daniele Burnett MD Nov 01, 2017 13:46
--- NOTE | 2017-11-01 15:08 | HHI.PR ---
Subjective Remarks Nursing denies any deterioration since last night. No bowel movements overnight. No diarrhea this morning. Patient herself says she takes Zofran and Phenergan at home chronically for outpatient diagnosed diabetic gastroparesis. Objective Vital Signs Date Time Temp Pulse Resp B/P (MAP) Pulse Ox O2 Delivery O2 Flow Rate FiO2 11/01/17 13:34 16 11/01/17 13:00 74 14 111/63 (79) 11/01/17 12:00 98.2 80 11 138/77 (97) 11/01/17 11:09 16 11/01/17 11:01 84 11/01/17 11:01 84 31 134/67 (89) 11/01/17 10:00 80 11/01/17 10:00 82 20 119/64 (82) 11/01/17 09:01 74 22 142/75 (97) 11/01/17 09:01 74 11/01/17 08:00 82 11/01/17 08:00 98.6 82 8 102/50 (67) 99 11/01/17 07:00 80 11/01/17 07:00 80 14 139/67 (91) 11/01/17 06:00 70 14 140/66 (90) 11/01/17 05:00 70 14 122/66 (84) 11/01/17 04:00 98.2 80 10 140/76 (97) 96 11/01/17 03:05 94 30 134/72 (92) 11/01/17 02:00 84 21 134/70 (91) 11/01/17 02:00 84 11/01/17 01:00 84 15 111/62 (78) 11/01/17 00:00 80 11/01/17 00:00 80 11/01/17 00:00 98.0 80 15 136/71 (92) 97 10/31/17 23:00 86 16 111/64 (80) 10/31/17 22:00 82 10/31/17 22:00 82 14 140/69 (92) 10/31/17 21:00 72 13 128/67 (87) 10/31/17 20:00 78 10/31/17 20:00 98.3 78 18 137/68 (91) 10/31/17 20:00 78 10/31/17 19:00 88 15 114/56 (75) 10/31/17 18:00 84 10/31/17 18:00 88 10/31/17 18:00 88 18 10/31/17 17:32 78 10/31/17 17:32 78 17 150/73 (98) 10/31/17 17:02 76 10/31/17 17:02 76 20 126/63 (84) 10/31/17 17:00 76 10/31/17 17:00 76 19 10/31/17 16:32 84 16 133/63 (86) 10/31/17 16:32 84 10/31/17 16:02 82 10/31/17 16:02 82 17 137/71 (93) 10/31/17 16:00 82 10/31/17 16:00 82 19 10/31/17 16:00 82 10/31/17 15:32 78 18 138/68 (91) 10/31/17 15:32 78 I/O 10/31/17 10/31/17 10/31/17 11/01/17 11/01/17 11/01/17 07:00 15:00 23:00 07:00 15:00 23:00 Intake Total 2000 ml 1420 ml 2940 ml 539 ml Output Total 1750 ml Balance 2000 ml 1420 ml 1190 ml 539 ml Intake Oral 320 ml 640 ml IV Total 2000 ml 1100 ml 2300 ml 539 ml Output Urine Total 1750 ml # Voids 3 Result Diagram: 11/01/17 0545 11/01/17 0545 Objective Remarks lying in bed, no acute distress Abdomen soft, nontender, nondistended A/P Assessment and Plan 47-year-old female admitted secondary to DKA DKA -resolved, gap is closed, came off of insulin drip this a.m. but sugars are not controlled between 190s and 150s on subcutaneous insulin. Electrolytes have normalized renal function is intact. She is tolerating p.o. intake well with baseline chronic intermittent nausea for which she takes Zofran and Phenergan for at home anyway. Patient's diarrhea has not recurred for the last 12 hours. Patient has met maximal benefit from hospitalization and is clinically stable for discharge. Patient was counseled to follow-up with her primary care provider to have her levels checked given that she has steadily/ slowly dropping H&H level. Daniele Burnett MD Nov 01, 2017 15:08
[2017-11-01] MEDS: HYDROmorphone HCL 4 MG TAB PO PRN ×2 (15:37→20:43)
[2017-11-01] MEDS: ALPRAZolam 1 MG TAB PO PRN ×2 (16:30→21:23)
[2017-11-01] MEDS: QUEtiapine FUMARATE 200 MG TAB PO SCH (19:22)
[2017-11-01] MEDS: INSULIN DETEMIR 100 UNITS/ML VIAL SQ SCH (19:23)
== END 2017-11-01 22:00 | disposition home or self-care (01) | DRG 639 ==
LOC: PHED 00:51 → PHEDA 05:06 → PHICU 07:27
PROVIDERS: ADMIT Hospitalist; ATTEND Hospitalist
PROC: 02HV33Z Insertion of Infusion Device into Superior Vena Cava, Percutaneous Approach (ICD-10-PCS; principal; 2017-10-31)
DX: E10.10 Type 1 diabetes mellitus with ketoacidosis without coma (principal); K31.84 Gastroparesis; E10.43 Type 1 diabetes mellitus with diabetic autonomic (poly)neuropathy; M06.9 Rheumatoid arthritis, unspecified; G89.4 Chronic pain syndrome; F41.9 Anxiety disorder, unspecified; Z93.6 Other artificial openings of urinary tract status; F43.10 Post-traumatic stress disorder, unspecified; Z79.4 Long term (current) use of insulin
CPT/HCPCS: 36556; 71045; 74176; 80048; 80053; 82010; 82800; 82948; 83036; 83605; 83690; 83735; 84100; 85007; 85025; 85027; 85610; 85730; 87641; 93005; 96361; 96365; 96375; J1170; J1815; J1817; J2060; J2270; J2405; J2765; J3480; J7030; J7042

== ENCOUNTER 2018-02-16 12:39 | Inpatient (IN) ==
[2018-02-16] MEDS ORDERED: Lidocaine PF 1% Inj 10 ML Amp INFILTRATN ONE (14:58)
--- NOTE | 2018-02-16 15:41 | ED ---
HPI General Chief complaint: Skin/Abscess/Foreign Body Stated complaint: Rt Arm Infection/Pain Time Seen by Provider: 02/16/18 14:41 Related Data Home Medications Medication Instructions Recorded Confirmed alprazolam [Xanax] 2 mg PO QID 02/16/18 02/16/18 carbamazepine [Tegretol] 400 mg PO BID 02/16/18 02/16/18 gabapentin [Neurontin] 800 mg PO TID 02/16/18 02/16/18 hydromorphone [Dilaudid] 4 mg PO Q4H 02/16/18 02/16/18 insulin glargine [Lantus Solostar 15 unit SUB-Q BID 02/16/18 02/16/18 U-100 Insulin] insulin lispro [Humalog U-100 1 sliding scale dose SUB-Q UD 02/16/18 02/16/18 Insulin] quetiapine [Seroquel] 200 mg PO HS 02/16/18 02/16/18 Previous Rx's Medication Instructions Recorded amoxicillin-pot clavulanate 1 tab PO BID #20 tab 02/19/18 [Augmentin] Allergies Allergy/AdvReac Type Severity Reaction Status Date / Time ketorolac Allergy Severe Anaphylaxis Verified 02/16/18 13:07 Review of Systems Except as stated in HPI: all other systems reviewed are negative (Patient presents with insect bite to medial aspect of forearm secondary to insect approximately 2 months ago. Also patient has palpable mass to radial aspect of forearm that is approximately 3 cm in diameter. Additionally patient has had has an area approximately 9 cm of swelling and tenderness just distal to the described abscess no pain in axilla or popliteal areas no loss of sensation of fingers) [facility] Medical History Medical History Bipolar disorder (Acute) Diabetes (Acute) Neuropathy (Acute) Obstructive uropathy (Acute) Opioid dependence (Acute) Surgical History Surgical History H/O Spinal surgery (Acute) H/O skin graft (Acute) History of cholecystectomy (Acute) History of nephrostomy (Acute) Family History Family History Father History of cancer Mother History of cancer Sister History of cancer Brother History of diabetes mellitus Social History Social History Substance History: No History of Abuse Second Hand Smoke Exposure: No Smoking Status: Never smoker How Often Do You Have a Drink Containing Alcohol: Never Recent Travel in [facility] within the Last 8 Weeks: No Recent Out of Country Travel within the Last 8 Weeks: No Immunization History Tetanus Immunization: <5 Years Hx Influenza Vaccine This Season: Yes Exam Narrative Exam Narrative: GENERAL: Alert and oriented no significant discomfort SKIN: Focused skin assessment warm/dry. HEAD: Atraumatic. Normocephalic. EYES: Pupils equal and round. No scleral icterus. No injection or drainage. CARDIOVASCULAR: Regular rate and rhythm. No murmur appreciated. RESPIRATORY: No accessory muscle use. Clear to auscultation. Breath sounds equal bilaterally. GASTROINTESTINAL: Abdomen soft, non-tender, nondistended. Hepatic and splenic margins not palpable. MUSCULOSKELETAL: No obvious deformities. No clubbing. No cyanosis. No edema. Patient has ulceration to ulnar aspect of forearm approximately 2 cm in diameter with surrounding cellulitis. Additionally patient has 3 cm palpable flocculent abscess to radial aspect of forearm. Additionally patient has a 10 cm area of cellulitis on the volar surface of forearm. However patient has no neurovascular compromise despite potential of compartmental syndrome NEUROLOGICAL: Awake and alert. No obvious cranial nerve deficits. Motor grossly within normal limits. Normal speech. PSYCHIATRIC: Appropriate mood and affect; insight and judgment normal. Procedures Abscess I/D Site: upper extremity (right forearm) Side (if applicable): right Anesthetic used: lidocaine 1% Technique: incised with #11 blade Amount of fluid expressed (mL): 5 Irrigation: Yes Packing used?: iodoform Complications: pain Course Initial Documented Vital Signs Temperature 98.1 F 02/16/18 12:44 Pulse Rate 100 H 02/16/18 12:44 Respiratory Rate 16 02/16/18 12:44 Blood Pressure 105/55 L 02/16/18 12:44 Last Documented Vital Signs Temperature 97.0 F L 02/19/18 08:49 Pulse Rate 86 02/19/18 08:49 Respiratory Rate 18 02/19/18 11:19 Blood Pressure 128/66 02/19/18 08:49 Pulse Oximetry 98 02/19/18 08:49 Medical Decision Making VINCENT Attestation VINCENT supervised visit: Yes Attestation: I did the initial evaluation and discharge of this patient however the I&D was done as directed by me and supervised. The the procedure was done effectively with no complication or problem. If I will remember Family required his same type of procedure I would ask this provider to do so. Lab Data Result diagrams: 02/18/18 07:35 02/17/18 11:43 Lab Results 02/16/18 02/16/18 02/17/18 Range/Units 16:15 21:07 08:08 CBC w Diff Auto diff final WBC 16.9 H (4.0-11.0) th/mm3 RBC 3.06 L (4.00-5.30) mil/mm3 Hgb 9.4 L (11.6-15.3) gm/dL Hct 29.2 L (35.0-46.0) % MCV 95.5 (80.0-100.0) fL MCH 30.8 (27.0-34.0) pg MCHC 32.3 (32.0-36.0) % RDW 15.3 (11.6-17.2) % Plt Count 392 (150-450) th/mm3 MPV 8.0 (7.0-11.0) fL Neut % (Auto) 76.8 H (16.0-70.0) % Lymph % (Auto) 13.9 (9.0-44.0) % [place] % (Auto) 6.3 (0.0-8.0) % Eos % (Auto) 0.5 (0.0-4.0) % Baso % (Auto) 2.5 H (0.0-2.0) % Neut # (Auto) 13.0 H (1.8-7.7) th/mm3 Lymph # (Auto) 2.3 (1.0-4.8) th/mm3 [place] # (Auto) 1.1 H (0.0-0.9) th/mm3 Eos # (Auto) 0.1 (0.0-0.4) th/mm3 Baso # (Auto) 0.4 H (0.0-0.2) th/mm3 WBC Differential . Differential Comment . Sodium (136-145) meq/L Potassium (3.5-5.1) meq/L Chloride (98-107) meq/L Carbon Dioxide (21.0-32.0) meq/L Anion Gap (5-15) meq/L BUN (7-18) mg/dL Creatinine (0.50-1.00) mg/dL Estimated GFR (>89) mL/min POC Glucose 247 H 245 H (68-110) mg/dl Random Glucose (74-106) mg/dL Calcium (8.5-10.1) mg/dL Total Bilirubin (0.2-1.0) mg/dL AST (15-37) U/L ALT (10-53) U/L Alkaline Phosphatase (45-117) U/L Total Protein (6.4-8.2) g/dL Albumin (3.4-5.0) g/dL 02/17/18 02/17/18 02/17/18 Range/Units 11:43 11:43 12:06 CBC w Diff Auto diff final WBC 13.3 H (4.0-11.0) th/mm3 RBC 2.80 L (4.00-5.30) mil/mm3 Hgb 8.4 L (11.6-15.3) gm/dL Hct 26.6 L (35.0-46.0) % MCV 95.2 (80.0-100.0) fL MCH 30.0 (27.0-34.0) pg MCHC 31.5 L (32.0-36.0) % RDW 15.1 (11.6-17.2) % Plt Count 398 (150-450) th/mm3 MPV 8.3 (7.0-11.0) fL Neut % (Auto) 80.2 H (16.0-70.0) % Lymph % (Auto) 13.3 (9.0-44.0) % [place] % (Auto) 3.7 (0.0-8.0) % Eos % (Auto) 1.1 (0.0-4.0) % Baso % (Auto) 1.7 (0.0-2.0) % Neut # (Auto) 10.7 H (1.8-7.7) th/mm3 Lymph # (Auto) 1.8 (1.0-4.8) th/mm3 [place] # (Auto) 0.5 (0.0-0.9) th/mm3 Eos # (Auto) 0.1 (0.0-0.4) th/mm3 Baso # (Auto) 0.2 (0.0-0.2) th/mm3 WBC Differential . Differential Comment . Sodium 138 (136-145) meq/L Potassium 3.8 (3.5-5.1) meq/L Chloride 104 (98-107) meq/L Carbon Dioxide 25.4 (21.0-32.0) meq/L Anion Gap 9 (5-15) meq/L BUN 15 (7-18) mg/dL Creatinine 0.91 (0.50-1.00) mg/dL Estimated GFR 66 L (>89) mL/min POC Glucose 135 H (68-110) mg/dl Random Glucose 136 H (74-106) mg/dL Calcium 8.1 L (8.5-10.1) mg/dL Total Bilirubin 0.2 (0.2-1.0) mg/dL AST 23 (15-37) U/L ALT 22 (10-53) U/L Alkaline Phosphatase 241 H (45-117) U/L Total Protein 6.8 (6.4-8.2) g/dL Albumin 2.6 L (3.4-5.0) g/dL 02/17/18 02/17/18 02/18/18 Range/Units 16:09 21:30 07:35 CBC w Diff Auto diff final WBC 5.7 D (4.0-11.0) th/mm3 RBC 2.67 L (4.00-5.30) mil/mm3 Hgb 8.2 L (11.6-15.3) gm/dL Hct 25.3 L (35.0-46.0) % MCV 94.6 (80.0-100.0) fL MCH 30.8 (27.0-34.0) pg MCHC 32.6 (32.0-36.0) % RDW 15.5 (11.6-17.2) % Plt Count 339 (150-450) th/mm3 MPV 8.6 (7.0-11.0) fL Neut % (Auto) 72.9 H (16.0-70.0) % Lymph % (Auto) 18.8 (9.0-44.0) % [place] % (Auto) 3.1 (0.0-8.0) % Eos % (Auto) 4.4 H (0.0-4.0) % Baso % (Auto) 0.8 (0.0-2.0) % Neut # (Auto) 4.2 (1.8-7.7) th/mm3 Lymph # (Auto) 1.1 (1.0-4.8) th/mm3 [place] # (Auto) 0.2 (0.0-0.9) th/mm3 Eos # (Auto) 0.2 (0.0-0.4) th/mm3 Baso # (Auto) 0.0 (0.0-0.2) th/mm3 WBC Differential . Differential Comment . Sodium (136-145) meq/L Potassium (3.5-5.1) meq/L Chloride (98-107) meq/L Carbon Dioxide (21.0-32.0) meq/L Anion Gap (5-15) meq/L BUN (7-18) mg/dL Creatinine (0.50-1.00) mg/dL Estimated GFR (>89) mL/min POC Glucose 212 H 274 H (68-110) mg/dl Random Glucose (74-106) mg/dL Calcium (8.5-10.1) mg/dL Total Bilirubin (0.2-1.0) mg/dL AST (15-37) U/L ALT (10-53) U/L Alkaline Phosphatase (45-117) U/L Total Protein (6.4-8.2) g/dL Albumin (3.4-5.0) g/dL 02/18/18 02/18/18 02/18/18 Range/Units 17:38 21:26 23:53 CBC w Diff WBC (4.0-11.0) th/mm3 RBC (4.00-5.30) mil/mm3 Hgb (11.6-15.3) gm/dL Hct (35.0-46.0) % MCV (80.0-100.0) fL MCH (27.0-34.0) pg MCHC (32.0-36.0) % RDW (11.6-17.2) % Plt Count (150-450) th/mm3 MPV (7.0-11.0) fL Neut % (Auto) (16.0-70.0) % Lymph % (Auto) (9.0-44.0) % [place] % (Auto) (0.0-8.0) % Eos % (Auto) (0.0-4.0) % Baso % (Auto) (0.0-2.0) % Neut # (Auto) (1.8-7.7) th/mm3 Lymph # (Auto) (1.0-4.8) th/mm3 [place] # (Auto) (0.0-0.9) th/mm3 Eos # (Auto) (0.0-0.4) th/mm3 Baso # (Auto) (0.0-0.2) th/mm3 WBC Differential Differential Comment Sodium (136-145) meq/L Potassium (3.5-5.1) meq/L Chloride (98-107) meq/L Carbon Dioxide (21.0-32.0) meq/L Anion Gap (5-15) meq/L BUN (7-18) mg/dL Creatinine (0.50-1.00) mg/dL Estimated GFR (>89) mL/min POC Glucose 329 H 412 H 100 (68-110) mg/dl Random Glucose (74-106) mg/dL Calcium (8.5-10.1) mg/dL Total Bilirubin (0.2-1.0) mg/dL AST (15-37) U/L ALT (10-53) U/L Alkaline Phosphatase (45-117) U/L Total Protein (6.4-8.2) g/dL Albumin (3.4-5.0) g/dL 02/19/18 02/19/18 02/19/18 Range/Units 08:02 11:50 11:51 CBC w Diff WBC (4.0-11.0) th/mm3 RBC (4.00-5.30) mil/mm3 Hgb (11.6-15.3) gm/dL Hct (35.0-46.0) % MCV (80.0-100.0) fL MCH (27.0-34.0) pg MCHC (32.0-36.0) % RDW (11.6-17.2) % Plt Count (150-450) th/mm3 MPV (7.0-11.0) fL Neut % (Auto) (16.0-70.0) % Lymph % (Auto) (9.0-44.0) % [place] % (Auto) (0.0-8.0) % Eos % (Auto) (0.0-4.0) % Baso % (Auto) (0.0-2.0) % Neut # (Auto) (1.8-7.7) th/mm3 Lymph # (Auto) (1.0-4.8) th/mm3 [place] # (Auto) (0.0-0.9) th/mm3 Eos # (Auto) (0.0-0.4) th/mm3 Baso # (Auto) (0.0-0.2) th/mm3 WBC Differential Differential Comment Sodium (136-145) meq/L Potassium (3.5-5.1) meq/L Chloride (98-107) meq/L Carbon Dioxide (21.0-32.0) meq/L Anion Gap (5-15) meq/L BUN (7-18) mg/dL Creatinine (0.50-1.00) mg/dL Estimated GFR (>89) mL/min POC Glucose 252 H 54 L 55 L (68-110) mg/dl Random Glucose (74-106) mg/dL Calcium (8.5-10.1) mg/dL Total Bilirubin (0.2-1.0) mg/dL AST (15-37) U/L ALT (10-53) U/L Alkaline Phosphatase (45-117) U/L Total Protein (6.4-8.2) g/dL Albumin (3.4-5.0) g/dL 02/19/18 02/19/18 02/19/18 Range/Units 12:07 12:20 12:38 CBC w Diff WBC (4.0-11.0) th/mm3 RBC (4.00-5.30) mil/mm3 Hgb (11.6-15.3) gm/dL Hct (35.0-46.0) % MCV (80.0-100.0) fL MCH (27.0-34.0) pg MCHC (32.0-36.0) % RDW (11.6-17.2) % Plt Count (150-450) th/mm3 MPV (7.0-11.0) fL Neut % (Auto) (16.0-70.0) % Lymph % (Auto) (9.0-44.0) % [place] % (Auto) (0.0-8.0) % Eos % (Auto) (0.0-4.0) % Baso % (Auto) (0.0-2.0) % Neut # (Auto) (1.8-7.7) th/mm3 Lymph # (Auto) (1.0-4.8) th/mm3 [place] # (Auto) (0.0-0.9) th/mm3 Eos # (Auto) (0.0-0.4) th/mm3 Baso # (Auto) (0.0-0.2) th/mm3 WBC Differential Differential Comment Sodium (136-145) meq/L Potassium (3.5-5.1) meq/L Chloride (98-107) meq/L Carbon Dioxide (21.0-32.0) meq/L Anion Gap (5-15) meq/L BUN (7-18) mg/dL Creatinine (0.50-1.00) mg/dL Estimated GFR (>89) mL/min POC Glucose 47 L* 50 L 55 L (68-110) mg/dl Random Glucose (74-106) mg/dL Calcium (8.5-10.1) mg/dL Total Bilirubin (0.2-1.0) mg/dL AST (15-37) U/L ALT (10-53) U/L Alkaline Phosphatase (45-117) U/L Total Protein (6.4-8.2) g/dL Albumin (3.4-5.0) g/dL Discharge Plan Discharge Disposition Patient Disposition: 02 Disch To Another Hospital Discharge Condition Condition: Stable Discharge Order Discharge Orders: Discharge Order (Routine); Ordered 02/19/18 Ordered By: Destin Chowdary Discharge Details Anticipated Discharge Date: 02/19/18 Discharge Comment: Patient seen and evaluated with hypoglycemia which is quite asymptomatic. Patient ambulatory. Patient's at the bedside. No new complaints. Status post treatment of hypoglycemia. Discharge home. Discussed with Regino DURBIN. Physicians Team ED Provider: Urbano Daily Primary Care Provider: Sukumar Logan Attending Provider: Jeane Calvillo Other Providers: [facility],Insurance Status ED Status: Left Department Discharge Information Discharge Date/Time: 02/16/18 22:09
[2018-02-16] MEDS ORDERED: Clindamycin/Dextrose 900 MG/50 ML IVPB IV.SIG ONE (16:00)
[2018-02-16 16:26] LABS: Baso # (Auto) 0.4 th/mm3 (0.0-0.2); Baso % (Auto) 2.5 % (0.0-2.0); Eos # (Auto) 0.1 th/mm3 (0.0-0.4); Eos % (Auto) 0.5 % (0.0-4.0); Hematocrit 29.2 % (35.0-46.0); Hemoglobin 9.4 gm/dL (11.6-15.3); Lymph # (Auto) 2.3 th/mm3 (1.0-4.8); Lymph % (Auto) 13.9 % (9.0-44.0); Mean Corpuscular HGB Conc 32.3 % (32.0-36.0); Mean Corpuscular Hemoglobin 30.8 pg (27.0-34.0); Mean Corpuscular Volume 95.5 fL (80.0-100.0); Mono # (Auto) 1.1 th/mm3 (0.0-0.9); Mono % (Auto) 6.3 % (0.0-8.0); Neut % (Auto) 76.8 % (16.0-70.0); Platelet Count 392 th/mm3 (150-450); Red Blood Count 3.06 mil/mm3 (4.00-5.30); Red Cell Distribution Width 15.3 % (11.6-17.2); White Blood Count 16.9 th/mm3 (4.0-11.0)
[2018-02-16] MEDS ORDERED: Temazepam 15 MG Capsule PO PRN (19:44)
[2018-02-16] MEDS ORDERED: Bisacodyl 10 MG Supp RECTAL PRN (19:44)
[2018-02-16] MEDS: Sod Chloride 0.9% Inj 1,000 ML IV.CONT SCH (20:54)
[2018-02-16] MEDS ORDERED: Clindamycin 900 mg/NS Premix 900 MG/50 ML PIGGYBACK IV.SIG SCH (21:00)
[2018-02-16] MEDS ORDERED: Dextrose 50% in Water 50 ML Vial IV.PUSH PRN (22:56)
[2018-02-17] MEDS: Clindamycin 900 mg/NS Premix 900 MG/50 ML PIGGYBACK IV.SIG SCH ×3 (01:24→16:21)
[2018-02-17] MEDS: Sod Chloride 0.9% Inj 1,000 ML IV.CONT SCH ×2 (04:10→18:15)
[2018-02-17] MEDS: Insulin NovoLOG Aspart Correctional Sugar Inj SQ SCH ×4 (09:19→21:42)
[2018-02-17] MEDS: Insulin Detemir Inj 1,000 UNIT/10 ML Vial SQ SCH ×2 (09:20→21:41)
[2018-02-17] MEDS: carBAMazepine 200 MG Tablet PO SCH ×2 (09:21→21:33)
[2018-02-17] MEDS: Gabapentin 400 MG Capsule PO SCH ×3 (09:21→18:14)
--- NOTE | 2018-02-17 10:53 | P.HP ---
History of Present Illness Primary Care Physician: Sukumar Logan Chief Complaint: Draining arm wound History of Present Illness: 47-year-old female with known history of diabetes, chronic pain, opiate dependency, anxiety, bipolar disorder who presented to the hospital because of the right arm pain and wound drainage. Patient indicates that for over 2 months she has had this mass type lump on her anterior right upper extremity has not been causing her any problems. Then approximately 2 weeks ago she started developing an abscess on the lateral aspect of her forearm which ruptured and started draining fluid. It did not get any better so her called the paramedics who came and evaluated and recommended her come to the hospital, however she refused at that time. She indicates that she talk to a police service technician recommended that she go to the hospital as well and when she did present to the emergency department. Patient had workup done and found abscess on the right anterior surface of her forearm which she underwent incision and drainage done by the emergency room physician. The other wound was bandaged and continues to drain. Patient thinks she got bit by insect which caused her original injury. Workup also indicated signs of sepsis to include leukocytosis, tachycardia, infection source. Is recommended by ER physician the patient be admitted for further evaluation and management. - Diagnosis (1) Sepsis (2) Abscess of right upper extremity (3) Leukocytosis Review of Systems All other systems reviewed negative except as stated in HPI Skin/Breast: Reports change in skin color, Reports redness, Reports wounds PMFSH - History History Provided By: Patient - Medical History Medical History: Medical History (Last Updated 02/17/18 @ 10:43 by BROOKLYN Whaley) Bipolar disorder Diabetes Neuropathy Obstructive uropathy Opioid dependence - Surgical History Surgical History: Surgical History (Last Updated 02/17/18 @ 10:43 by BROOKLYN Whaley) H/O Spinal surgery H/O skin graft History of cholecystectomy History of nephrostomy - Family History Family History: Family History (Last Updated 02/17/18 @ 10:45 by BROOKLYN Whaley) Father History of cancer Mother History of cancer Sister History of cancer Brother History of diabetes mellitus - Tobacco History Second Hand Smoke Exposure: No Smoking Status: Never smoker - Alcohol History How Often Do You Have a Drink Containing Alcohol: Never - Substance Use History Substance History: No History of Abuse - Travel History Recent Travel in the [facility] Within the Last 8 Weeks: No Recent Travel Out of the Country Within the Last 8 Weeks: No - Immunization History Tetanus Immunization: <5 Years Hx Influenza Vaccine This Season: Yes Medications and Allergies Active Medications: Active Medications Al Hydroxide/Mg Hydroxide (Milk Of Magnesia Liq) 30 ml PO Q12H PRN PRN Reason: Mild Constipation Alprazolam (Xanax) 2 mg PO QID [facility] Last Admin: 02/17/18 09:21 Dose: 2 mg Bisacodyl (Dulcolax Supp) 10 mg RECTAL DAILY PRN PRN Reason: SEVERE CONSITIPATION Carbamazepine (Tegretol) 400 mg PO BID [facility] Last Admin: 02/17/18 09:21 Dose: 400 mg Dextrose (D50w Vial) 50 ml IV.PUSH UNSCH PRN PRN Reason: PER HYPOGLYCEMIA PROTOCOL Gabapentin (Neurontin) 800 mg PO TID [facility] Last Admin: 02/17/18 09:21 Dose: 800 mg Glucagon (Glucagon Inj) 1 mg OTHER PRN PRN PRN Reason: for Hypoglycemia Protocol Hydromorphone HCl (Dilaudid) 4 mg PO Q4H [facility] Last Admin: 02/17/18 07:24 Dose: 4 mg Sodium Chloride (Ns Inj) 1,000 mls @ 100 mls/hr IV.CONT .Q10H [facility] Last Admin: 02/17/18 04:10 Dose: 100 mls/hr Clindamycin/Sodium Chloride (Cleocin 900 Mg/Ns Premix) 900 mg in 50 mls @ 100 mls/hr IV.SIG Q8H [facility] Last Infusion: 02/17/18 01:55 Dose: Infused Insulin Aspart (Novolog Insulin Correctional Sugar Inj) 0 unit SQ ACHS [facility]; Protocol Last Admin: 02/17/18 09:19 Dose: 1 unit Insulin Detemir (Levemir Inj) 15 unit SQ BID [facility] Last Admin: 02/17/18 09:20 Dose: 15 unit Lactulose (Lactulose Liq) 30 ml PO DAILY PRN PRN Reason: SEVERE CONSITIPATION Quetiapine Fumarate (Seroquel) 200 mg PO HS [facility] Last Admin: 02/16/18 23:27 Dose: 200 mg Sennosides (Senokot) 17.2 mg PO Q12H PRN PRN Reason: Moderate Constipation Temazepam (Restoril) 15 mg PO HS PRN PRN Reason: INSOMNIA Allergies Allergy/AdvReac Type Severity Reaction Status Date / Time ketorolac Allergy Severe Anaphylaxis Verified 02/16/18 13:07 Home Medications Medication Instructions Recorded Confirmed Type alprazolam [Xanax] 2 mg PO QID 02/16/18 02/16/18 History carbamazepine [Tegretol] 400 mg PO BID 02/16/18 02/16/18 History gabapentin [Neurontin] 800 mg PO TID 02/16/18 02/16/18 History hydromorphone [Dilaudid] 4 mg PO Q4H 02/16/18 02/16/18 History insulin glargine [Lantus Solostar 15 unit SUB-Q BID 02/16/18 02/16/18 History U-100 Insulin] insulin lispro [Humalog U-100 1 sliding scale dose SUB-Q UD 02/16/18 02/16/18 History Insulin] quetiapine [Seroquel] 200 mg PO HS 02/16/18 02/16/18 History Exam Vital signs: Vital Signs 02/16/18 12:44 02/16/18 18:26 02/16/18 19:30 Temperature 98.1 F Pulse Rate 100 H 90 93 H Respiratory Rate 16 15 16 Blood Pressure 105/55 L 93/49 L 103/53 L Pulse Oximetry 96 02/16/18 22:08 02/17/18 00:00 02/17/18 08:00 Temperature 98.8 F 99.8 F H Pulse Rate 90 106 H 97 H Respiratory Rate 18 16 20 Blood Pressure 102/49 L 106/59 L 110/55 L Pulse Oximetry 100 99 Intake & Output 02/16/18 02/17/18 02/17/18 18:59 06:59 18:59 Intake Total 3050 / 3050 Balance 3050 / 3050 Weight 67 kg 67 kg Intake: IV 1050 / 1050 NS Inj 1,000 ML @ 100 mls/hr IV 1000 / 1000 .CONT .Q10H [facility] Rx#:[id number] Cleocin 900 mg/NS Premix 900 mg 50 / 50 In 50 ml @ 100 mls/hr IV.SIG Q8H [facility] Rx#:[id number] Oral 1999 Other: # Voids 3 Date of Last Bowel Movement 02/16/18 Weight On Admission 67 kg Narrative: GENERAL: Well-developed, well-nourished, in no acute distress. alert and orientated HEENT: Head is normocephalic without any lesions or masses noted. Facial features are symmetric. Eyes: Pupils equal round reactive to light. Extraocular muscles are intact. Conjunctivae were clear. Oropharyngeal: Pharynx without any erythema edema. Tongue is midline without deviation. Buccal mucosa is moist without any masses or lesions NECK: Supple without any masses. Trachea midline no deviation. No JVD, no bruits are appreciated CARDIAC: Regular rhythm, regular rate. S1/S2 are heard. No murmurs gallops or rubs. LUNGS: Clear to auscultation bilaterally. No wheeze, rhonchi or rales. No use of accessory muscles on inspiration or expiration. ABDOMEN: Soft, nontender. Nondistended. Bowel sounds heard in all 4 quadrants. No organomegaly or masses. Negative rebound, negative guarding EXTREMITIES: No edema, pulses are equal bilaterally. No cyanosis or clubbing NEUROLOGY: Mood and affect appear appropriate. Cranial nerves II through XII grossly intact. Muscle strength 5/5 in upper and lower extremities bilaterally. Deep tendon reflexes are 2+ in upper and lower extremities bilaterally. RIGHT UPPER EXTREMITY: Bandages noted and was removed. Patient does have on the lateral aspect of her forearm a draining wound with yellow eschar. Wound on the distal anterior forearm does have packing gauze in place which appears to be draining purulent fluid. Results - Labs CBC & Chem 7: 02/16/18 16:15 Labs: Laboratory Results - last 24 hr 02/16/18 02/16/18 02/17/18 16:15 21:07 08:08 CBC w Diff Auto diff final WBC 16.9 H RBC 3.06 L Hgb 9.4 L Hct 29.2 L MCV 95.5 MCH 30.8 MCHC 32.3 RDW 15.3 Plt Count 392 MPV 8.0 Neut % (Auto) 76.8 H Lymph % (Auto) 13.9 [place] % (Auto) 6.3 Eos % (Auto) 0.5 Baso % (Auto) 2.5 H Neut # (Auto) 13.0 H Lymph # (Auto) 2.3 [place] # (Auto) 1.1 H Eos # (Auto) 0.1 Baso # (Auto) 0.4 H WBC Differential . Differential Comment . POC Glucose 247 H 245 H Caprini VTE Risk Assessment Caprini VTE Risk Assessment: Moderate/High Risk (score >= 2) Caprini Risk Assessment Model: Point Value = 1 Point Value = 2 Point Value = 3 Point Value = 5 Age 41-60 Minor surgery BMI > 25 kg/m2 Swollen legs Varicose veins or History of unexplained or recurrent spontaneous Oral contraceptives or hormone replacement Sepsis (< 1 month) Serious lung disease, including pneumonia (< 1 month) Abnormal pulmonary function Acute myocardial infarction Congestive heart failure (< 1 month) History of inflammatory bowel disease Medical patient at bed rest Age 61-74 Arthroscopic surgery Major open surgery (> 45 min) Laparoscopic surgery (> 45 min) Malignancy Confined to bed (> 72 hours) Immobilizing plaster cast Central venous access Age >= 75 History of VTE Family history of VTE Factor V Leiden Prothrombin [id number] Lupus anticoagulant Anticardiolipin antibodies Elevated serum homocysteine Heparin-induced thrombocytopenia Other congenital or acquired thrombophilia Stroke (< 1 month) Elective arthroplasty Hip, pelvis, or leg fracture Acute spinal cord injury (< 1 month) Prophylaxis Regimen: Total Risk Factor Score Risk Level Prophylaxis Regimen 0-1 Low Early ambulation 2 Moderate Order ONE of the following: *Sequential Compression Device (SCD) *Heparin 5000 units SQ BID 3-4 Higher Order ONE of the following medications: *Heparin 5000 units SQ TID *Enoxaparin/Lovenox 40 mg SQ daily (WT < 150 kg, CrCl > 30 mL/min) *Enoxaparin/Lovenox 30 mg SQ daily (WT < 150 kg, CrCl > 10-29 mL/min) *Enoxaparin/Lovenox 30 mg SQ BID (WT < 150 kg, CrCl > 30 mL/min) AND/OR *Sequential Compression Device (SCD) 5 or more Highest Order ONE of the following medications: *Heparin 5000 units SQ TID (Preferred with Epidurals) *Enoxaparin/Lovenox 40 mg SQ daily (WT < 150 kg, CrCl > 30 mL/min) *Enoxaparin/Lovenox 30 mg SQ daily (WT < 150 kg, CrCl > 10-29 mL/min) *Enoxaparin/Lovenox 30 mg SQ BID (WT < 150 kg, CrCl > 30 mL/min) AND *Sequential Compression Device (SCD) Assessment and Plan - Assessment (1) Sepsis Code(s): A41.9 - Sepsis, unspecified organism Status: Acute (2) Abscess of right upper extremity Code(s): L02.413 - Cutaneous abscess of right upper limb Status: Acute (3) Leukocytosis Code(s): D72.829 - Elevated white blood cell count, unspecified Status: Acute - Plan Sepsis secondary to cellulitis/abscess -Patient meets criteria on admission with leukocytosis, tachycardia, multiple abscesses/wound on her right upper extremity -Patient started on empirical antibiotics to include clindamycin -Obtain blood cultures -Wound culture pending at this time Diabetes -Accu-Cheks with sliding scale insulin Chronic pain with opiate dependency -Home medications have been continued Bipolar disorder -Home medications have been continued DVT prevention -Sequential compression devices -Subcutaneous heparin
[2018-02-17 11:57] LABS: Baso # (Auto) 0.2 th/mm3 (0.0-0.2); Baso % (Auto) 1.7 % (0.0-2.0); Eos # (Auto) 0.1 th/mm3 (0.0-0.4); Eos % (Auto) 1.1 % (0.0-4.0); Hematocrit 26.6 % (35.0-46.0); Hemoglobin 8.4 gm/dL (11.6-15.3); Lymph # (Auto) 1.8 th/mm3 (1.0-4.8); Lymph % (Auto) 13.3 % (9.0-44.0); Mean Corpuscular HGB Conc 31.5 % (32.0-36.0); Mean Corpuscular Volume 95.2 fL (80.0-100.0); Mean Platelet Volume 8.3 fL (7.0-11.0); Mono # (Auto) 0.5 th/mm3 (0.0-0.9); Mono % (Auto) 3.7 % (0.0-8.0); Neut # (Auto) 10.7 th/mm3 (1.8-7.7); Neut % (Auto) 80.2 % (16.0-70.0); Platelet Count 398 th/mm3 (150-450); Red Cell Distribution Width 15.1 % (11.6-17.2); White Blood Count 13.3 th/mm3 (4.0-11.0)
[2018-02-17 12:05] LABS: Chloride 104 meq/L (98-107); Potassium 3.8 meq/L (3.5-5.1); Sodium 138 meq/L (136-145)
[2018-02-17 12:10] LABS: Albumin 2.6 g/dL (3.4-5.0); Anion Gap 9 meq/L (5-15); Blood Urea Nitrogen 15 mg/dL (7-18); Calcium 8.1 mg/dL (8.5-10.1); Carbon Dioxide 25.4 meq/L (21.0-32.0); Glucose,Random 136 mg/dL (74-106)
[2018-02-17 12:13] LABS: Alanine Aminotransferase 22 U/L (10-53); Aspartate Aminotransferase 23 U/L (15-37); Glomerular Filtration Rate 66 mL/min (>89)
[2018-02-17 12:15] LABS: Total Protein 6.8 g/dL (6.4-8.2)
[2018-02-17 12:16] LABS: Alkaline Phosphatase 241 U/L (45-117)
[2018-02-17] MEDS: Heparin - SQ 10,000 UNITS/ML Vial SQ SCH ×2 (13:37→21:31)
[2018-02-17] MEDS: Piperacil/Tazo 3.375 GM Premix 50 ML IV.SIG SCH ×2 (18:15→21:49)
[2018-02-18] MEDS: Piperacil/Tazo 3.375 GM Premix 50 ML IV.SIG SCH ×4 (00:13→17:20)
[2018-02-18] MEDS: Clindamycin 900 mg/NS Premix 900 MG/50 ML PIGGYBACK IV.SIG SCH ×2 (00:33→09:11)
[2018-02-18] MEDS: Sod Chloride 0.9% Inj 1,000 ML IV.CONT SCH ×4 (00:34→22:16)
[2018-02-18 08:03] LABS: Baso % (Auto) 0.8 % (0.0-2.0); Eos # (Auto) 0.2 th/mm3 (0.0-0.4); Eos % (Auto) 4.4 % (0.0-4.0); Hematocrit 25.3 % (35.0-46.0); Hemoglobin 8.2 gm/dL (11.6-15.3); Lymph # (Auto) 1.1 th/mm3 (1.0-4.8); Lymph % (Auto) 18.8 % (9.0-44.0); Mean Corpuscular HGB Conc 32.6 % (32.0-36.0); Mean Corpuscular Hemoglobin 30.8 pg (27.0-34.0); Mean Corpuscular Volume 94.6 fL (80.0-100.0); Mean Platelet Volume 8.6 fL (7.0-11.0); Mono # (Auto) 0.2 th/mm3 (0.0-0.9); Mono % (Auto) 3.1 % (0.0-8.0); Neut # (Auto) 4.2 th/mm3 (1.8-7.7); Neut % (Auto) 72.9 % (16.0-70.0); Platelet Count 339 th/mm3 (150-450); Red Blood Count 2.67 mil/mm3 (4.00-5.30); Red Cell Distribution Width 15.5 % (11.6-17.2); White Blood Count 5.7 th/mm3 (4.0-11.0)
--- NOTE | 2018-02-18 08:25 | P.PN ---
Subjective Interval history: Patient seen and examined today for follow-up on right arm abscess. Patient states that she is doing better. The arm does look significantly improved. Swelling has decreased. Discussed with her the need to await culture reports for appropriate antibiotic. Patient remains afebrile. Vital signs are stable. Physical Exam Vital signs: Vital Signs 02/17/18 12:00 02/17/18 16:00 02/17/18 20:00 Temperature 98.0 F 99.2 F 97.9 F Pulse Rate 94 H 92 H 88 Respiratory Rate 20 20 20 Blood Pressure 118/72 131/68 134/69 Pulse Oximetry 98 100 98 02/18/18 00:00 Temperature 96.5 F L Pulse Rate 76 Respiratory Rate 20 Blood Pressure 104/57 L Pulse Oximetry 96 Intake & Output 02/17/18 02/18/18 02/18/18 18:59 06:59 18:59 Intake Total 1730 / 1730 2110 / 2110 Balance 1730 / 1730 2110 / 2110 Weight 67.1 kg Intake: IV 1100 / 1100 1150 / 1150 NS Inj 1,000 ML @ 100 mls/hr IV 1000 / 1000 1000 / 1000 .CONT .Q10H [facility] Rx#:[id number] Cleocin 900 mg/NS Premix 900 mg 50 / 50 50 / 50 In 50 ml @ 100 mls/hr IV.SIG Q8H [facility] Rx#:[id number] Zosyn 3.375 GM Premix 50 ML @ 50 / 50 100 / 100 100 mls/hr IV.SIG Q6H [facility] Rx#: [id number] Oral 630 / 630 960 / 960 Other: # Voids 4 2 Date of Last Bowel Movement 02/16/18 Narrative: GENERAL: Well-developed, well-nourished, in no acute distress. alert and orientated HEENT: Head is normocephalic without any lesions or masses noted. Facial features are symmetric. Eyes: Extraocular muscles are intact. Conjunctivae were clear. NECK: Supple without any masses. Trachea midline no deviation. No JVD, CARDIAC: Regular rhythm, regular rate. S1/S2 are heard. No murmurs gallops or rubs. LUNGS: Clear to auscultation bilaterally. No wheeze, rhonchi or rales. No use of accessory muscles on inspiration or expiration. ABDOMEN: Soft, nontender. Nondistended. Bowel sounds heard in all 4 quadrants. No organomegaly or masses. Negative rebound, negative guarding EXTREMITIES: No edema, pulses are equal bilaterally. No cyanosis or clubbing NEUROLOGY: Mood and affect appear appropriate. Cranial nerves II through XII grossly intact. Moving all extremities, speech is clear RIGHT UPPER EXTREMITY: Pain is noted on the arm with significant improvement of the edema. Results - Labs CBC & Chem 7: 02/18/18 07:35 02/17/18 11:43 Laboratory Results - last 24 hr 02/17/18 02/17/18 02/17/18 11:43 11:43 12:06 CBC w Diff Auto diff final WBC 13.3 H RBC 2.80 L Hgb 8.4 L Hct 26.6 L MCV 95.2 MCH 30.0 MCHC 31.5 L RDW 15.1 Plt Count 398 MPV 8.3 Neut % (Auto) 80.2 H Lymph % (Auto) 13.3 [place] % (Auto) 3.7 Eos % (Auto) 1.1 Baso % (Auto) 1.7 Neut # (Auto) 10.7 H Lymph # (Auto) 1.8 [place] # (Auto) 0.5 Eos # (Auto) 0.1 Baso # (Auto) 0.2 WBC Differential . Differential Comment . Sodium 138 Potassium 3.8 Chloride 104 Carbon Dioxide 25.4 Anion Gap 9 BUN 15 Creatinine 0.91 Estimated GFR 66 L POC Glucose 135 H Random Glucose 136 H Calcium 8.1 L Total Bilirubin 0.2 AST 23 ALT 22 Alkaline Phosphatase 241 H Total Protein 6.8 Albumin 2.6 L 02/17/18 02/17/18 02/18/18 16:09 21:30 07:35 CBC w Diff Auto diff final WBC 5.7 D RBC 2.67 L Hgb 8.2 L Hct 25.3 L MCV 94.6 MCH 30.8 MCHC 32.6 RDW 15.5 Plt Count 339 MPV 8.6 Neut % (Auto) 72.9 H Lymph % (Auto) 18.8 [place] % (Auto) 3.1 Eos % (Auto) 4.4 H Baso % (Auto) 0.8 Neut # (Auto) 4.2 Lymph # (Auto) 1.1 [place] # (Auto) 0.2 Eos # (Auto) 0.2 Baso # (Auto) 0.0 WBC Differential . Differential Comment . Sodium Potassium Chloride Carbon Dioxide Anion Gap BUN Creatinine Estimated GFR POC Glucose 212 H 274 H Random Glucose Calcium Total Bilirubin AST ALT Alkaline Phosphatase Total Protein Albumin Microbiology 02/16/18 19:00 Abscess - Arm Gram Stain - Final 02/16/18 19:00 Abscess - Arm Wound Culture - Preliminary gram negative rods - Procedures 02/16/18: Incision and debridement of right arm abscess Assessment and Plan - Assessment (1) Sepsis Code(s): A41.9 - Sepsis, unspecified organism Status: Acute (2) Abscess of right upper extremity Code(s): L02.413 - Cutaneous abscess of right upper limb Status: Acute (3) Leukocytosis Code(s): D72.829 - Elevated white blood cell count, unspecified Status: Acute - Plan Sepsis secondary to cellulitis/abscess, resolved -Patient meets criteria on admission with leukocytosis, tachycardia, multiple abscesses/wound on her right upper extremity -Patient started on empirical antibiotics to include clindamycin -Blood cultures are pending Right forearm abscesses/cellulitis, improving -Wound culture did grow gram-negative rods, awaiting final culture for appropriate antibiotics -Continue clindamycin, added Zosyn Diabetes, chronic: -Accu-Cheks with sliding scale insulin Chronic pain with opiate dependency -Home medications have been continued Bipolar disorder, chronic: -Home medications have been continued DVT prevention -Sequential compression devices -Subcutaneous heparin Discharge Planning: Discharge planning once culture report is final for appropriate antibiotics
[2018-02-18] MEDS: Insulin NovoLOG Aspart Correctional Sugar Inj SQ SCH ×4 (09:10→21:37)
[2018-02-18] MEDS: Insulin Detemir Inj 1,000 UNIT/10 ML Vial SQ SCH ×2 (09:11→21:39)
[2018-02-18] MEDS: Heparin - SQ 10,000 UNITS/ML Vial SQ SCH ×2 (09:12→21:30)
[2018-02-18] MEDS: Gabapentin 400 MG Capsule PO SCH ×3 (09:12→17:20)
[2018-02-18] MEDS: carBAMazepine 200 MG Tablet PO SCH ×2 (09:13→21:29)
[2018-02-19] MEDS: Piperacil/Tazo 3.375 GM Premix 50 ML IV.SIG SCH ×4 (00:03→10:50)
[2018-02-19] MEDS: Insulin Detemir Inj 1,000 UNIT/10 ML Vial SQ SCH (08:32)
[2018-02-19] MEDS: Insulin NovoLOG Aspart Correctional Sugar Inj SQ SCH ×2 (08:33→13:51)
[2018-02-19] MEDS: Gabapentin 400 MG Capsule PO SCH ×2 (08:35→12:43)
[2018-02-19] MEDS: carBAMazepine 200 MG Tablet PO SCH (08:35)
[2018-02-19] MEDS: Heparin - SQ 10,000 UNITS/ML Vial SQ SCH (08:36)
[2018-02-19 08:50] VITALS: BP 128/66; PULSE 86; TEMP 97; O2SAT 98
[2018-02-19] MEDS: Sod Chloride 0.9% Inj 1,000 ML IV.CONT SCH (10:49)
--- NOTE | 2018-02-19 11:10 | P.DS ---
<Destin Chowdary - Last Filed: 02/19/18 12:07> Date of admission: 02/17/18 10:46 Primary care physician: Sukumar Logan Attending physician on discharge: Jeane Calvillo Anticipated date of discharge: 02/19/18 Brief History from admission: 47-year-old female with known history of diabetes, chronic pain, opiate dependency, anxiety, bipolar disorder who presented to the hospital because of the right arm pain and wound drainage. Patient indicates that for over 2 months she has had this mass type lump on her anterior right upper extremity has not been causing her any problems. Then approximately 2 weeks ago she started developing an abscess on the lateral aspect of her forearm which ruptured and started draining fluid. It did not get any better so her called the paramedics who came and evaluated and recommended her come to the hospital, however she refused at that time. She indicates that she talk to a patrol police lieutenant recommended that she go to the hospital as well and when she did present to the emergency department. Patient had workup done and found abscess on the right anterior surface of her forearm which she underwent incision and drainage done by the emergency room physician. The other wound was bandaged and continues to drain. Patient thinks she got bit by insect which caused her original injury. Workup also indicated signs of sepsis to include leukocytosis, tachycardia, infection source. Is recommended by ER physician the patient be admitted for further evaluation and management. DS: Diagnosis - Discharge Diagnosis (1) Sepsis Status: Acute (2) Abscess of right upper extremity Status: Acute (3) Leukocytosis Status: Acute DS: Medications - Discharge Medications Prescriptions: amoxicillin-pot clavulanate [Augmentin] 1 tab PO BID #20 tab DS: Summary Hospital Course: 47-year-old female who originally presented to the hospital because of right forearm wound and swelling. Patient was found to have significant abscess in which the ER physician performed incision and drainage in the emergency department. Cultures were taken. Patient was admitted the hospital for IV antibiotics. Patient was started on clindamycin. Culture did come back a gram-negative roberto carlos and patient was changed to Zosyn. Continue to follow blood cultures and wound cultures. Wound culture did grow Klebsiella oxytoca and group B strep. Patient presented with sepsis by criteria and a weighted blood cultures be negative for 2 days. Patient has clinically improved significantly. Swelling has improved. Patient tolerated treatment well. Cultures have returned with sensitivities. Patient will be discharged home with appropriate antibiotics. Patient continue home wound care. Plan discharge accordingly. Prior to discharge patient approached nursing staff and was requesting that we fill her prescriptions for Dilaudid, gabapentin, Xanax. I did pull the patient record up on Valente rufino, and come to find out that the patient would not completely trustworthy on her giving us dosages of her medications. E rufino indicated that patient was on 2 mg Dilaudid 3 times daily, Xanax 1 mg 3 times daily. However patient has some old documentation from a [facility] visit in which shows that she is on the higher doses of her narcotic pain medication to include Dilaudid 4 mg every 4 hours as needed as well as Xanax 2 mg 3 times a day. I discussed with her that we will be reducing down her medication dosage. We cannot fill any of her prescription for since Valente rufino indicates that she had her prescriptions filled on 01/27/18. She should follow- up with her pain management doctor, primary medical doctor for refill of her chronic pain medication. - Time Spent with Patient Total time spent providing and/or coordinating discharge services: - Quality: VTE Deep Vein Thrombosis/Pulmonary Embolism Present on Admission: No Exam Vital signs: Vital Signs 02/18/18 12:23 02/18/18 16:40 02/18/18 20:00 Temperature 97.6 F 97.5 F L Pulse Rate 88 89 Respiratory Rate 16 16 20 Blood Pressure 123/68 162/65 H 114/63 Pulse Oximetry 98 98 98 02/19/18 00:00 02/19/18 04:00 02/19/18 08:49 Temperature 97 F L 97.2 F L 97.0 F L Pulse Rate 100 H 100 H 86 Respiratory Rate 19 18 16 Blood Pressure 112/68 122/68 128/66 Pulse Oximetry 98 97 98 Intake & Output 02/18/18 02/19/18 02/19/18 18:59 06:59 18:59 Intake Total 1150 / 1150 320 / 320 Balance 1150 / 1150 320 / 320 Intake: IV 1150 / 1150 100 / 100 NS Inj 1,000 ML @ 100 mls/hr IV 1000 / 1000 .CONT .Q10H HUYEN Rx#:[id number] Cleocin 900 mg/NS Premix 900 mg 50 / 50 In 50 ml @ 100 mls/hr IV.SIG Q8H HUYEN Rx#:[id number] Zosyn 3.375 GM Premix 50 ML @ 100 / 100 100 / 100 100 mls/hr IV.SIG Q6H HUYEN Rx#: [id number] Oral 220 / 220 Other: # Voids 3 2 Date of Last Bowel Movement 02/16/18 Narrative: GENERAL: Well-developed, well-nourished, in no acute distress. alert and orientated HEENT: Head is normocephalic without any lesions or masses noted. Facial features are symmetric. Eyes: Extraocular muscles are intact. Conjunctivae were clear. NECK: Supple without any masses. Trachea midline no deviation. No JVD, CARDIAC: Regular rhythm, regular rate. S1/S2 are heard. No murmurs gallops or rubs. LUNGS: Clear to auscultation bilaterally. No wheeze, rhonchi or rales. No use of accessory muscles on inspiration or expiration. ABDOMEN: Soft, nontender. Nondistended. Bowel sounds heard in all 4 quadrants. No organomegaly or masses. Negative rebound, negative guarding EXTREMITIES: No edema, pulses are equal bilaterally. No cyanosis or clubbing NEUROLOGY: Mood and affect appear appropriate. Cranial nerves II through XII grossly intact. Moving all extremities, speech is clear RIGHT UPPER EXTREMITY: Pain is noted on the arm with significant improvement of the edema. Results Procedures completed during hospitalization: 02/16/18: Incision and debridement of right arm abscess Labs on day of discharge: Labs from last 24 hours 02/19/18 02/18/18 02/18/18 08:02 23:53 21:26 POC Glucose 252 H 100 412 H 02/18/18 17:38 POC Glucose 329 H Preliminary micro results at discharge 02/18/18 05:19 Aerobic Blood Culture - Preliminary Blood - Peripheral No growth in 1 day Anaerobic Blood Culture - Preliminary No growth in 1 day 02/17/18 11:43 Aerobic Blood Culture - Preliminary Blood - Peripheral No growth in 2 days Anaerobic Blood Culture - Preliminary No growth in 2 days <Jeane Calvillo - Last Filed: 02/19/18 13:00> Date of admission: 02/17/18 10:46 Primary care physician: Sukumar Logan DS: Summary - Time Spent with Patient Total time spent providing and/or coordinating discharge services: Less than 30 minutes Exam Vital signs: Vital Signs 02/18/18 16:40 02/18/18 20:00 02/19/18 00:00 Temperature 97.6 F 97.5 F L 97 F L Pulse Rate 89 100 H Respiratory Rate 16 20 19 Blood Pressure 162/65 H 114/63 112/68 Pulse Oximetry 98 98 98 02/19/18 04:00 02/19/18 08:49 Temperature 97.2 F L 97.0 F L Pulse Rate 100 H 86 Respiratory Rate 18 16 Blood Pressure 122/68 128/66 Pulse Oximetry 97 98 Intake & Output 02/18/18 02/19/18 02/19/18 18:59 06:59 18:59 Intake Total 1150 / 1150 320 / 320 Balance 1150 / 1150 320 / 320 Intake: IV 1150 / 1150 100 / 100 NS Inj 1,000 ML @ 100 mls/hr IV 1000 / 1000 .CONT .Q10H HUYEN Rx#:[id number] Cleocin 900 mg/NS Premix 900 mg 50 / 50 In 50 ml @ 100 mls/hr IV.SIG Q8H HUYEN Rx#:[id number] Zosyn 3.375 GM Premix 50 ML @ 100 / 100 100 / 100 100 mls/hr IV.SIG Q6H HUYEN Rx#: [id number] Oral 220 / 220 Other: # Voids 3 2 Date of Last Bowel Movement 02/16/18 Results Labs on day of discharge: Labs from last 24 hours 02/19/18 02/19/18 02/19/18 12:38 12:20 12:07 POC Glucose 55 L 50 L 47 L* 02/19/18 02/19/18 02/19/18 11:51 11:50 08:02 POC Glucose 55 L 54 L 252 H 02/18/18 02/18/18 02/18/18 23:53 21:26 17:38 POC Glucose 100 412 H 329 H Preliminary micro results at discharge 02/18/18 05:19 Aerobic Blood Culture - Preliminary Blood - Peripheral No growth in 1 day Anaerobic Blood Culture - Preliminary No growth in 1 day 02/17/18 11:43 Aerobic Blood Culture - Preliminary Blood - Peripheral No growth in 2 days Anaerobic Blood Culture - Preliminary No growth in 2 days Discharge Plan - Discharge Order Discharge Orders: Discharge Order (Routine); Ordered 02/19/18 Ordered By: Destin Chowdary - Discharge Details Anticipated Discharge Date: 02/19/18 Discharge Comment: Patient seen and evaluated with hypoglycemia which is quite asymptomatic. Patient ambulatory. Patient's at the bedside. No new complaints. Status post treatment of hypoglycemia. Discharge home. Discussed with Regino DURBIN. - Physicians Team Primary Care Provider: Sukumar Logan Attending Provider: Jeane Calvillo Other Providers: [employer],Insurance
[2018-02-19 13:51] VITALS: RESP 18
== END 2018-02-19 13:07 | disposition home or self-care (01) ==
LOC: PHEDA 12:39 → PHED 12:39 → PHEDA 22:09 → PH3 22:14
PROVIDERS: ADMIT Hospitalist; ATTEND Hospitalist

== ENCOUNTER 2018-03-10 07:24 | Observation (INO) ==
[2018-03-10] MEDS ORDERED: Sod Chloride 0.9% Inj 1,000 ML IV.SIG ONE (07:35)
[2018-03-10] MEDS ORDERED: HYDROmorphone PF Inj 2 MG/ML Vial IV.PUSH ONE (08:49)
[2018-03-10 08:50] LABS: VBG Blood Gas Oxygen Content 6.3 Vol % (9.0-17.0); VBG PCO2 47 mmHG (44-48); VBG PO2 29 mmHG (35-40)
[2018-03-10 09:06] LABS: Albumin 3.9 g/dL (3.4-5.0); Calcium 9.9 mg/dL (8.5-10.1); Carbon Dioxide 30.7 meq/L (21.0-32.0); Glucose,Random 146 mg/dL (74-106)
[2018-03-10 09:07] LABS: Blood Urea Nitrogen 16 mg/dL (7-18)
[2018-03-10 09:09] LABS: Alanine Aminotransferase 34 U/L (10-53); Aspartate Aminotransferase 23 U/L (15-37); Glomerular Filtration Rate 32 mL/min (>89)
[2018-03-10 09:10] LABS: Phosphorus 3.3 mg/dL (2.5-4.9)
[2018-03-10 09:11] LABS: Total Protein 8.4 g/dL (6.4-8.2)
[2018-03-10 09:12] LABS: Alkaline Phosphatase 232 U/L (45-117)
[2018-03-10 09:22] LABS: Beta Hydroxybutyric Acid 0.07 mmol/L (0.00-0.39)
[2018-03-10 09:46] LABS: Hematocrit 32.6 % (35.0-46.0); Hemoglobin 10.3 gm/dL (11.6-15.3); Mean Corpuscular HGB Conc 31.6 % (32.0-36.0); Mean Corpuscular Hemoglobin 29.1 pg (27.0-34.0); Mean Corpuscular Volume 92.3 fL (80.0-100.0); Mean Platelet Volume 8.7 fL (7.0-11.0); Platelet Count 442 th/mm3 (150-450); Red Blood Count 3.53 mil/mm3 (4.00-5.30); Red Cell Distribution Width 17.1 % (11.6-17.2); White Blood Count 8.3 th/mm3 (4.0-11.0)
[2018-03-10 10:15] LABS: Eosinophils 2 % (0-4); Lymphocytes 16 % (9-44); Monocytes 3 % (0-8); Platelet Estimate Normal (Normal); Platelet Morphology Normal (Normal)
--- NOTE | 2018-03-10 10:34 | ED ---
HPI General Chief complaint: Fall Stated complaint: Hyperglycemia/leg cramps History of Present Illness HPI narrative: Patient is a 47-year-old female presents emergency department for evaluation of leg cramps and a syncopal episode. Patient states that she has had some chronic back pain leg cramps, she is on some as well as many other medications including Dilaudid. She states this morning she got up to go to the bathroom and felt leg cramping in the next thing she knew she woke up on the floor with a pool of sweat around her. She states she took her sugar last night and was reading high and she took 20 units of insulin prior to going to bed. She later in her ER visit adamantly denied taking any other medications. On arrival the patient is alert and awake but during my initial assessment she was becoming diaphoretic, and altered. She denied any chest pain shortness of breath abdominal pain nausea vomiting diarrhea. EMS also reported that their glucometer read high in route to the hospital. Related Data Home Medications Medication Instructions Recorded Confirmed alprazolam [Xanax] 2 mg PO QID 02/16/18 03/10/18 carbamazepine [Tegretol] 400 mg PO BID 02/16/18 03/10/18 gabapentin [Neurontin] 800 mg PO BID 02/16/18 03/10/18 insulin glargine [Lantus Solostar 30 unit SUB-Q DAILY 02/16/18 03/10/18 U-100 Insulin] insulin lispro [Humalog U-100 1 sliding scale dose SUB-Q UD 02/16/18 03/10/18 Insulin] quetiapine [Seroquel] 200 mg PO HS 02/16/18 03/10/18 apixaban [Eliquis] 5 mg PO BID 03/10/18 03/10/18 carbamazepine [Epitol] 200 mg PO BID 03/10/18 03/10/18 cyclobenzaprine 10 mg PO BID 03/10/18 03/10/18 gabapentin 3,200 mg PO HS 03/10/18 03/10/18 hydrocodone-acetaminophen [[place]] 1 tab PO Q6H PRN 03/10/18 03/10/18 meloxicam 7.5 mg PO BID 03/10/18 03/10/18 morphine [MS Contin] 30 mg PO Q8H 03/10/18 03/10/18 ondansetron HCl [Zofran] 4 mg PO QID PRN 03/10/18 03/10/18 prazosin 2 mg PO BID 03/10/18 03/10/18 ropinirole [Requip] 2 mg PO HS 03/10/18 03/10/18 Previous Rx's Medication Instructions Recorded amoxicillin-pot clavulanate 1 tab PO BID #20 tab 02/19/18 [Augmentin] Allergies Allergy/AdvReac Type Severity Reaction Status Date / Time ketorolac Allergy Severe Anaphylaxis Verified 03/10/18 07:52 Review of Systems ROS: all other systems reviewed are negative [facility] Medical History Medical History Obstructive uropathy (Acute) Bipolar disorder (Acute) Opioid dependence (Acute) Neuropathy (Acute) Diabetes (Acute) Surgical History Surgical History History of nephrostomy (Acute) History of cholecystectomy (Acute) H/O skin graft (Acute) H/O Spinal surgery (Acute) Family History Family History Father History of cancer Mother History of cancer Sister History of cancer Brother History of diabetes mellitus Social History Social History Substance History: No History of Abuse Second Hand Smoke Exposure: No Smoking Status: Never smoker How Often Do You Have a Drink Containing Alcohol: Never Recent Travel in [facility] within the Last 8 Weeks: No Recent Out of Country Travel within the Last 8 Weeks: No Immunization History Tetanus Immunization: <5 Years Hx Influenza Vaccine This Season: Yes Exam Narrative Exam Narrative: GENERAL: Well-developed well-nourished, diaphoretic clammy. SKIN: Focused skin assessment warm/dry. HEAD: Atraumatic. Normocephalic. EYES: Pupils equal and round. No scleral icterus. No injection or drainage. ENT: No nasal bleeding or discharge. Mucous membranes pink and moist. NECK: Trachea midline. No JVD. CARDIOVASCULAR: Regular rhythm with tachycardia. no murmur appreciated. RESPIRATORY: No accessory muscle use. Clear to auscultation. Breath sounds equal bilaterally. GASTROINTESTINAL: Abdomen soft, non-tender, nondistended. Hepatic and splenic margins not palpable. MUSCULOSKELETAL: No obvious deformities. No clubbing. No cyanosis. No edema. NEUROLOGICAL: Awake and alert initially, becoming diaphoretic and confused during my initial assessment. Ultimately had syncopal episode while in the stretcher., After resuscitation and reassessment the patient has returned to a GCS of 15, nonfocal exam, cranial nerves II through XII grossly intact, moves all 4 extremities. PSYCHIATRIC: Appropriate mood and affect; insight and judgment normal. Procedures Central Line Placement Right Femoral: Prep: mask, gown and gloves Central Line Prep: Chlorhexidine scrub Local anesthesia used: lidocaine 1% Amount of anesthesia used (mL): 3 Ultrasound Used for Placement: Yes Central Line Lumen Inserted: triple Post Procedure: sutured in place, good blood return, all ports aspirated, flushed, capped and sterile dressing applied Patient Tolerated Procedure: other (Patient had syncopal episode during the placement of the central line, very diaphoretic. She is placed in Trendelenburg position.) Complications: none Course Initial Documented Vital Signs Temperature 98.7 F 03/10/18 07:53 Pulse Rate 107 H 03/10/18 07:53 Respiratory Rate 20 03/10/18 07:53 Blood Pressure 94/55 L 03/10/18 07:53 Pulse Oximetry 97 03/10/18 07:53 Last Documented Vital Signs Temperature 97.8 F 03/10/18 11:10 Pulse Rate 93 H 03/10/18 11:38 Respiratory Rate 18 03/10/18 11:38 Blood Pressure 96/57 L 03/10/18 11:38 Pulse Oximetry 99 03/10/18 11:38 Medical Decision Making MDM Narrative Medical decision making narrative: Patient room to the emergency department, initially alert and awake and oriented but during the history exam she became to come more altered and ultimately had a syncopal episode during the placement of central line. She was placed in Trendelenburg position and then was very confused and almost combative, she was riding around with leg pain and cramping. Blood pressure was as low as 60/20 and was given a total of 3 L bolus of normal saline through central line. Reassessment after these fluids shows a normal blood pressure and the patient is now GCS 15. Continue to complain of leg cramping and a dose of Dilaudid was given to her. EKG negative , creatinine is elevated 1.7 BUN is within normal limits. This could be chronic. . My differential is that the patient could have had a transient hypoglycemia, cardiac syncope, vasovagal syncope, it is also possible that she is taken some substance which she is not admitting to. Still I think the patient would benefit from an observation status given the 2 syncopal episode she has had with her history of diabetes she is not a low risk patient. Hemoglobin is also low at 9 (by vbg). Patient's early after discussion with Dr. Valentine is reported to me that she had some transient hypotension with systolic of 89, blood sugar was 53, she is given an amp of D50. She was reassessed by me and had no complaints and is neurologically intact Medical Screen Exam Complete: Yes Emergency Medical Condition: Yes Differential Diagnosis Differential Diagnosis: Syncope, hypoglycemia, DKA, cardiogenic syncope, dehydration, acute kidney injury Lab Data Result diagrams: 03/10/18 08:30 03/10/18 08:30 Lab Results 03/10/18 03/10/18 03/10/18 Range/Units 08:30 08:30 08:30 CBC w Diff Slide review pending WBC 8.3 (4.0-11.0) th/mm3 RBC 3.53 L (4.00-5.30) mil/mm3 Hgb 10.3 L (11.6-15.3) gm/dL POC Hgb (Calc) ND Hct 32.6 L (35.0-46.0) % POC Hct ND MCV 92.3 (80.0-100.0) fL MCH 29.1 (27.0-34.0) pg MCHC 31.6 L (32.0-36.0) % RDW 17.1 (11.6-17.2) % Plt Count 442 D (150-450) th/mm3 MPV 8.7 (7.0-11.0) fL WBC Differential Manual diff final Seg Neuts % (Manual) 77 H (16-70) % Band Neuts % (Manual) 2 (0-6) % Lymphocytes % (Manual) 16 (9-44) % Monocytes % (Manual) 3 (0-8) % Eosinophils % (Manual) 2 (0-4) % Abs Neuts (Manual) 6.6 (1.8-7.7) th/mm3 Differential Comment . Platelet Estimate Normal (Normal) Platelet Morphology Normal (Normal) Puncture Site Patient Temperature VBG pH (7.360-7.400) VBG pCO2 (44-48) mmHG VBG pO2 (35-40) mmHG VBG HCO3 (22-26) mmol/L VBG O2 Saturation (70-76) % VBG O2 Content (9.0-17.0) Vol % VBG Base Excess (-2-2) mmol/L VBG Carboxyhemoglobin (0-4) % VBG Methemoglobin (0-2) % Hemoglobin (12.0-16.0) G/DL O2 Delivery Device Inspired O2 % Critical Value POC Sodium 135 L (137-144) mmol/L Sodium 138 (136-145) meq/L POC Potassium 3.7 (3.6-5.0) mmol/L Potassium 3.7 (3.5-5.1) meq/L POC Chloride 96 L (102-111) mmol/L Chloride 96 L (98-107) meq/L Carbon Dioxide 30.7 (21.0-32.0) meq/L Anion Gap 11 (5-15) meq/L POC BUN ND BUN 16 (7-18) mg/dL Creatinine 1.70 H (0.50-1.00) mg/dL POC Creatinine ND Estimated GFR 32 L (>89) mL/min POC Glucose ND Random Glucose 146 H (74-106) mg/dL Lactic Acid (0.4-2.0) mmol/L Calcium 9.9 (8.5-10.1) mg/dL Phosphorus 3.3 (2.5-4.9) mg/dL Magnesium 2.0 (1.5-2.5) mg/dL Total Bilirubin 0.2 (0.2-1.0) mg/dL AST 23 (15-37) U/L ALT 34 (10-53) U/L Alkaline Phosphatase 232 H (45-117) U/L Ammonia 21 (11-32) mcmol/L Troponin I Less than 0.02 L (0.02-0.05) ng/mL Total Protein 8.4 H (6.4-8.2) g/dL Albumin 3.9 (3.4-5.0) g/dL Beta-Hydroxybutyric Acd 0.07 (0.00-0.39) mmol/L 03/10/18 03/10/18 03/10/18 Range/Units 08:30 08:42 08:42 CBC w Diff WBC (4.0-11.0) th/mm3 RBC (4.00-5.30) mil/mm3 Hgb (11.6-15.3) gm/dL POC Hgb (Calc) Hct (35.0-46.0) % POC Hct MCV (80.0-100.0) fL MCH (27.0-34.0) pg MCHC (32.0-36.0) % RDW (11.6-17.2) % Plt Count (150-450) th/mm3 MPV (7.0-11.0) fL WBC Differential Seg Neuts % (Manual) (16-70) % Band Neuts % (Manual) (0-6) % Lymphocytes % (Manual) (9-44) % Monocytes % (Manual) (0-8) % Eosinophils % (Manual) (0-4) % Abs Neuts (Manual) (1.8-7.7) th/mm3 Differential Comment Platelet Estimate (Normal) Platelet Morphology (Normal) Puncture Site Central line Patient Temperature 98.6 VBG pH 7.40 (7.360-7.400) VBG pCO2 47 (44-48) mmHG VBG pO2 29 L* (35-40) mmHG VBG HCO3 29 H (22-26) mmol/L VBG O2 Saturation 48 L (70-76) % VBG O2 Content 6.3 L (9.0-17.0) Vol % VBG Base Excess 4.0 H (-2-2) mmol/L VBG Carboxyhemoglobin 1.1 (0-4) % VBG Methemoglobin 1.5 (0-2) % Hemoglobin 9.3 L (12.0-16.0) G/DL O2 Delivery Device Room air Inspired O2 21 % Critical Value Yes POC Sodium (137-144) mmol/L Sodium (136-145) meq/L POC Potassium (3.6-5.0) mmol/L Potassium (3.5-5.1) meq/L POC Chloride (102-111) mmol/L Chloride (98-107) meq/L Carbon Dioxide (21.0-32.0) meq/L Anion Gap (5-15) meq/L POC BUN BUN (7-18) mg/dL Creatinine (0.50-1.00) mg/dL POC Creatinine Estimated GFR (>89) mL/min POC Glucose 147 H Random Glucose (74-106) mg/dL Lactic Acid 2.5 H (0.4-2.0) mmol/L Calcium (8.5-10.1) mg/dL Phosphorus (2.5-4.9) mg/dL Magnesium (1.5-2.5) mg/dL Total Bilirubin (0.2-1.0) mg/dL AST (15-37) U/L ALT (10-53) U/L Alkaline Phosphatase (45-117) U/L Ammonia (11-32) mcmol/L Troponin I (0.02-0.05) ng/mL Total Protein (6.4-8.2) g/dL Albumin (3.4-5.0) g/dL Beta-Hydroxybutyric Acd (0.00-0.39) mmol/L 03/10/18 03/10/18 03/10/18 Range/Units 08:43 11:09 11:37 CBC w Diff WBC (4.0-11.0) th/mm3 RBC (4.00-5.30) mil/mm3 Hgb (11.6-15.3) gm/dL POC Hgb (Calc) Hct (35.0-46.0) % POC Hct MCV (80.0-100.0) fL MCH (27.0-34.0) pg MCHC (32.0-36.0) % RDW (11.6-17.2) % Plt Count (150-450) th/mm3 MPV (7.0-11.0) fL WBC Differential Seg Neuts % (Manual) (16-70) % Band Neuts % (Manual) (0-6) % Lymphocytes % (Manual) (9-44) % Monocytes % (Manual) (0-8) % Eosinophils % (Manual) (0-4) % Abs Neuts (Manual) (1.8-7.7) th/mm3 Differential Comment Platelet Estimate (Normal) Platelet Morphology (Normal) Puncture Site Patient Temperature VBG pH (7.360-7.400) VBG pCO2 (44-48) mmHG VBG pO2 (35-40) mmHG VBG HCO3 (22-26) mmol/L VBG O2 Saturation (70-76) % VBG O2 Content (9.0-17.0) Vol % VBG Base Excess (-2-2) mmol/L VBG Carboxyhemoglobin (0-4) % VBG Methemoglobin (0-2) % Hemoglobin (12.0-16.0) G/DL O2 Delivery Device Inspired O2 % Critical Value POC Sodium (137-144) mmol/L Sodium (136-145) meq/L POC Potassium (3.6-5.0) mmol/L Potassium (3.5-5.1) meq/L POC Chloride (102-111) mmol/L Chloride (98-107) meq/L Carbon Dioxide (21.0-32.0) meq/L Anion Gap (5-15) meq/L POC BUN BUN (7-18) mg/dL Creatinine (0.50-1.00) mg/dL POC Creatinine Estimated GFR (>89) mL/min POC Glucose 153 H 53 L 208 H Random Glucose (74-106) mg/dL Lactic Acid (0.4-2.0) mmol/L Calcium (8.5-10.1) mg/dL Phosphorus (2.5-4.9) mg/dL Magnesium (1.5-2.5) mg/dL Total Bilirubin (0.2-1.0) mg/dL AST (15-37) U/L ALT (10-53) U/L Alkaline Phosphatase (45-117) U/L Ammonia (11-32) mcmol/L Troponin I (0.02-0.05) ng/mL Total Protein (6.4-8.2) g/dL Albumin (3.4-5.0) g/dL Beta-Hydroxybutyric Acd (0.00-0.39) mmol/L Imaging Data Radiologist's impression: Chest X-Ray 03/10/18 10:49 CONCLUSION: No acute cardiopulmonary disease. Discharge Plan Discharge Disposition Patient Disposition: 30 Still Patient Discharge Condition Condition: Fair Discharge Details Diagnosis: Syncope Physicians Team ED Provider: Oziel Rizvi Primary Care Provider: Sukumar Logan Attending Provider: Freddy Ford Interventions Interventions: Vital Signs Last Done: 03/10/18 10:10 Status ED Status: Admitted Observation Patient
[2018-03-10 10:35] LABS: Anion Gap 11 meq/L (5-15); Chloride 96 meq/L (98-107); Potassium 3.7 meq/L (3.5-5.1); Sodium 138 meq/L (136-145)
[2018-03-10] MEDS ORDERED: Dextrose 50% in Water 50 ML Vial IV.PUSH PRN (10:52)
[2018-03-10] MEDS ORDERED: Acetaminophen 325 MG Tablet PO PRN (10:54)
[2018-03-10] MEDS ORDERED: Bisacodyl 10 MG Supp RECTAL PRN (10:54)
--- NOTE | 2018-03-10 11:36 | XR ---
EXAM DATE: 03/10/2018 11:11 AM EDT AGE/SEX: 47 years / Female INDICATIONS: Syncopal episode, shortness of breath, leg cramping, hyperglycemia. CLINICAL DATA: This is the patient's initial encounter. Patient reports that signs and symptoms have been present for 1 day and indicates a pain score of 8/10. MEDICAL/SURGICAL HISTORY: Diabetes. Neruopathy. Obstructive uropathy. Cholecystectomy. Spinal surgery. Nephrostomy. COMPARISON: [facility], CHEST SINGLE AP, 10/31/2017. . FINDINGS: The lungs are clear without infiltrate, nodule, or mass. There is no appreciable pleural effusion for technique. Heart and mediastinum are unremarkable. CONCLUSION: No acute cardiopulmonary disease. Electronically signed by: Karen Mora MD 03/10/2018 11:35 AM EDT
[2018-03-10 12:09] LABS: Bilirubin,Urine Negative (Negative); Clarity,Urine Clear (Clear); Color,Urine Yellow (Yellw/Straw); Leukocyte Esterase,Urine Negative (Negative); Nitrite,Urine Negative (Negative); PH,Urine 7.5 (5.0-8.5); Urobilinogen,Urine 0.2 mg/dL (Less than 2)
[2018-03-10 12:11] VITALS: O2SAT 100
[2018-03-10 12:11] LABS: Squamous Epithelial Cell,Urine 0-5 /hpf (0-5); WBC,Urine 0-5 /hpf (0-5)
[2018-03-10 12:13] LABS: Amphetamine Screen,Urine Neg (Neg); Barbiturate Screen,Urine Neg (Neg); Cannabinoid Screen,Urine Neg (Neg); Cocaine Screen,Urine Pos (Neg)
[2018-03-10 12:25] LABS: Opiate Screen,Urine Neg (Neg)
--- NOTE | 2018-03-10 12:32 | P.HP ---
History of Present Illness Primary Care Physician: Sukumar Logan Chief Complaint: Syncope History of Present Illness: This is a 47-year-old female patient with a known medical history of chronic back pain with opiate dependency, diabetes with neuropathy, anxiety and bipolar disorder who presented to the ED with complaints of bilateral lower extremity leg cramping as well as a report of syncopal episode at home. Patient states that she does suffer from chronic back pain and leg cramps, is on narcotics at home, she states that she went up to go to the bathroom this morning she felt her legs cramp and the next thing she knew she woke up on the floor. Patient states she also diaphoretic after episode. It should be noted that EVAC checked her sugar on evaluation and it was in the 600s. On arrival patient did have her blood sugar checked again and it was decreased in the 100s. Patient states that yesterday her sugars were reportedly high every time she checked them before meals, she gave herself an extra 20 units of short acting insulin as well as her scheduled Lantus 30 units in the morning as well as 20 units at night. Patient does state that she has been eating well she denies any nausea, vomiting or diarrhea. She denies any recent fevers, chills, shortness of breath , abdomen, dysuria. Patient does admit to compliance with her medications. She denies any new medications. She last saw her PCP 2 weeks ago. She also presented to the ED 2 weeks ago for right arm cellulitis which she was prescribed Augmentin and has completed course, cellulitis has improved upon presentation today. It should be noted that ED physician put in a central line and during that time patient appeared to have another near syncopal episode, was given 3 L NS bolus in ED and started on continuous IV fluid. Awaiting CPK level. Patient does state that she had her head this morning. A CTA has been ordered. Will admit the ICU for closer monitoring. - Diagnosis (1) Sepsis (2) Syncope Review of Systems All other systems reviewed negative except as stated in HPI PMFSH - History History Provided By: Patient - Medical History Medical History: Medical History (Last Updated 03/10/18 @ 07:58 by Mayra Nash RN) Obstructive uropathy (Acute) Bipolar disorder (Acute) Opioid dependence (Acute) Neuropathy (Acute) Diabetes (Acute) - Surgical History Surgical History: Surgical History (Last Updated 03/10/18 @ 07:58 by Mayra Nash RN) History of nephrostomy (Acute) History of cholecystectomy (Acute) H/O skin graft (Acute) H/O Spinal surgery (Acute) - Family History Family History: Family History (Last Updated 02/17/18 @ 10:45 by BROOKLYN Whaley) Father History of cancer Mother History of cancer Sister History of cancer Brother History of diabetes mellitus - Tobacco History Second Hand Smoke Exposure: No Smoking Status: Never smoker - Alcohol History How Often Do You Have a Drink Containing Alcohol: Never - Substance Use History Substance History: No History of Abuse - Substance Use Type Crack/Cocaine Status: Active Route Used: Inhalation Frequency: only once. pt states "2 weeks ago" Reason for Use: Curiosity Comment: pt states "she tried it once and it was a stupid idea" - Travel History Recent Travel in the [place] Within the Last 8 Weeks: No Recent Travel Out of the Country Within the Last 8 Weeks: No - Immunization History Tetanus Immunization: <5 Years Hx Influenza Vaccine This Season: Yes Medications and Allergies Active Medications: Active Medications Acetaminophen (Tylenol) 650 mg PO Q4H PRN PRN Reason: Temp > 100.4 Alprazolam (Xanax) 1 mg PO TID PRN PRN Reason: ANXIETY Apixaban (Eliquis) 2.5 mg PO BID HUYEN Bisacodyl (Dulcolax Supp) 10 mg RECTAL DAILY PRN PRN Reason: SEVERE CONSITIPATION Carbamazepine (Tegretol) 400 mg PO BID HUYEN Dextrose (D50w Vial) 50 ml IV.PUSH UNSCH PRN PRN Reason: PER HYPOGLYCEMIA PROTOCOL Last Admin: 03/10/18 11:24 Dose: 50 ml Gabapentin (Neurontin) 800 mg PO BID HUYEN Glucagon (Glucagon Inj) 1 mg OTHER PRN PRN PRN Reason: for Hypoglycemia Protocol Hydromorphone HCl (Dilaudid) 2 mg PO TID PRN PRN Reason: PAIN SCALE 3-10 Sodium Chloride (Ns Inj) 1,000 mls @ 100 mls/hr IV.CONT .Q10H HUYEN Insulin Aspart (Novolog Insulin Correctional Sugar Inj) 0 unit SQ ACHS HUYEN; Protocol Insulin Detemir (Levemir Inj) 15 unit SQ BID HUYEN Lactulose (Lactulose Liq) 30 ml PO DAILY PRN PRN Reason: SEVERE CONSITIPATION Ondansetron HCl (Zofran Inj) 4 mg IV.PUSH Q6H PRN PRN Reason: NAUSEA OR VOMITING Patient Own Narcotic Med 1 (Carisoprodol [Soma] 250 Mg) 0 each PO QID [facility] Quetiapine Fumarate (Seroquel) 200 mg PO HS [facility] Senna/Docusate Sodium (Tess-Colace) 1 tab PO BID [facility] Sennosides (Senokot) 17.2 mg PO Q12H PRN PRN Reason: Moderate Constipation Sodium Chloride (Ns Flush) 2 ml IV.FLUSH PRN PRN PRN Reason: FLUSH AFTER USING IV ACCESS Allergies Allergy/AdvReac Type Severity Reaction Status Date / Time ketorolac Allergy Severe Anaphylaxis Verified 03/10/18 07:52 Home Medications Medication Instructions Recorded Confirmed Type alprazolam [Xanax] 2 mg PO QID 02/16/18 03/10/18 History carbamazepine [Tegretol] 400 mg PO BID 02/16/18 03/10/18 History gabapentin [Neurontin] 800 mg PO BID 02/16/18 03/10/18 History insulin glargine [Lantus Solostar 30 unit SUB-Q DAILY 02/16/18 03/10/18 History U-100 Insulin] insulin lispro [Humalog U-100 1 sliding scale dose SUB-Q UD 02/16/18 03/10/18 History Insulin] quetiapine [Seroquel] 200 mg PO HS 02/16/18 03/10/18 History apixaban [Eliquis] 5 mg PO BID 03/10/18 03/10/18 History carbamazepine [Epitol] 200 mg PO BID 03/10/18 03/10/18 History cyclobenzaprine 10 mg PO BID 03/10/18 03/10/18 History gabapentin 3,200 mg PO HS 03/10/18 03/10/18 History hydrocodone-acetaminophen [Corona] 1 tab PO Q6H PRN 03/10/18 03/10/18 History meloxicam 7.5 mg PO BID 03/10/18 03/10/18 History morphine [MS Contin] 30 mg PO Q8H 03/10/18 03/10/18 History ondansetron HCl [Zofran] 4 mg PO QID PRN 03/10/18 03/10/18 History prazosin 2 mg PO BID 03/10/18 03/10/18 History ropinirole [Requip] 2 mg PO HS 03/10/18 03/10/18 History Exam Vital signs: Vital Signs 03/10/18 07:53 03/10/18 08:04 03/10/18 08:15 Temperature 98.7 F Pulse Rate 107 H 108 H 102 H Respiratory Rate 20 20 16 Blood Pressure 94/55 L 100/60 67/35 L Pulse Oximetry 97 97 95 03/10/18 08:30 03/10/18 09:00 03/10/18 09:17 Temperature Pulse Rate 111 H 90 82 Respiratory Rate 16 16 16 Blood Pressure 90/72 L 117/72 136/76 Pulse Oximetry 95 98 98 03/10/18 09:51 03/10/18 10:10 03/10/18 11:10 Temperature 97.8 F Pulse Rate 79 87 83 Respiratory Rate 16 14 Blood Pressure 93/57 L 93/57 L 81/43 L Pulse Oximetry 96 97 98 03/10/18 11:38 03/10/18 12:10 Temperature Pulse Rate 93 H 89 Respiratory Rate 18 16 Blood Pressure 96/57 L 103/54 L Pulse Oximetry 99 100 Intake & Output 03/09/18 03/10/18 03/10/18 18:59 06:59 18:59 Intake Total 1000 / 1000 Balance 1000 / 1000 Weight 63.503 kg Intake: IV 1000 / 1000 NS Inj 1,000 ML @ Wide Open IV. 1000 / 1000 SIG BOLUS ONE Rx#:[id number] Narrative: GENERAL: Well-developed, well-nourished patient in [facility]. SKIN: Warm and dry. No rash. Multiple old scars from skin grafting. Right forearm with scabbing, healed cellulitis status post antibiotic. No open wounds. HEAD: Normocephalic. Atraumatic. EYES: Pupils equal and round. No scleral icterus. No injection or drainage. ENT: No nasal bleeding or discharge. Mucous membranes pink and moist. NECK: Supple. Trachea midline. CARDIOVASCULAR: Regular rate and rhythm. S1, S2 noted. No murmur appreciated. RESPIRATORY: No accessory muscle use. Clear to auscultation. Breath sounds equal bilaterally. GASTROINTESTINAL: Abdomen soft, non-tender, nondistended. Normoactive bowel sounds x4. MUSCULOSKELETAL: No obvious deformities. Extremities without clubbing, cyanosis , or edema. NEUROLOGICAL: Awake and alert. No obvious cranial nerve deficits. Motor grossly within normal limits. 5/5 muscle strength in bilateral upper and lower extremities. Normal speech. PSYCHIATRIC: Appropriate mood and affect; insight and judgment normal. Results - Labs CBC & Chem 7: 03/10/18 08:30 03/10/18 08:30 Labs: Laboratory Results - last 24 hr 03/10/18 03/10/18 03/10/18 08:30 08:30 08:30 CBC w Diff Slide review pending WBC 8.3 RBC 3.53 L Hgb 10.3 L POC Hgb (Calc) ND Hct 32.6 L POC Hct ND MCV 92.3 MCH 29.1 MCHC 31.6 L RDW 17.1 Plt Count 442 D MPV 8.7 WBC Differential Manual diff final Seg Neuts % (Manual) 77 H Band Neuts % (Manual) 2 Lymphocytes % (Manual) 16 Monocytes % (Manual) 3 Eosinophils % (Manual) 2 Abs Neuts (Manual) 6.6 Differential Comment . Platelet Estimate Normal Platelet Morphology Normal Puncture Site Patient Temperature VBG pH VBG pCO2 VBG pO2 VBG HCO3 VBG O2 Saturation VBG O2 Content VBG Base Excess VBG Carboxyhemoglobin VBG Methemoglobin Hemoglobin O2 Delivery Device Inspired O2 Critical Value POC Sodium 135 L Sodium 138 POC Potassium 3.7 Potassium 3.7 POC Chloride 96 L Chloride 96 L Carbon Dioxide 30.7 Anion Gap 11 POC BUN ND BUN 16 Creatinine 1.70 H POC Creatinine ND Estimated GFR 32 L POC Glucose ND Random Glucose 146 H Lactic Acid Calcium 9.9 Phosphorus 3.3 Magnesium 2.0 Total Bilirubin 0.2 AST 23 ALT 34 Alkaline Phosphatase 232 H Ammonia 21 Troponin I Less than 0.02 L Total Protein 8.4 H Albumin 3.9 Beta-Hydroxybutyric Acd 0.07 Ur Collection Type Urine Color Urine Clarity Urine pH Ur Specific [place] Urine Protein Urine Glucose (UA) Urine Ketones Urine Occult Blood Urine Nitrate Urine Bilirubin Urine Urobilinogen Ur Leukocyte Esterase Urine WBC Ur Squamous Epith Cells Micro UA Comment Urine Culture Comments Urine Opiates Screen Ur Barbiturates Screen Ur Amphetamines Screen U Benzodiazepines Scrn Urine Cocaine Screen U Cannabinoids Screen 03/10/18 03/10/18 03/10/18 08:30 08:42 08:42 CBC w Diff WBC RBC Hgb POC Hgb (Calc) Hct POC Hct MCV MCH MCHC RDW Plt Count MPV WBC Differential Seg Neuts % (Manual) Band Neuts % (Manual) Lymphocytes % (Manual) Monocytes % (Manual) Eosinophils % (Manual) Abs Neuts (Manual) Differential Comment Platelet Estimate Platelet Morphology Puncture Site Central line Patient Temperature 98.6 VBG pH 7.40 VBG pCO2 47 VBG pO2 29 L* VBG HCO3 29 H VBG O2 Saturation 48 L VBG O2 Content 6.3 L VBG Base Excess 4.0 H VBG Carboxyhemoglobin 1.1 VBG Methemoglobin 1.5 Hemoglobin 9.3 L O2 Delivery Device Room air Inspired O2 21 Critical Value Yes POC Sodium Sodium POC Potassium Potassium POC Chloride Chloride Carbon Dioxide Anion Gap POC BUN BUN Creatinine POC Creatinine Estimated GFR POC Glucose 147 H Random Glucose Lactic Acid 2.5 H Calcium Phosphorus Magnesium Total Bilirubin AST ALT Alkaline Phosphatase Ammonia Troponin I Total Protein Albumin Beta-Hydroxybutyric Acd Ur Collection Type Urine Color Urine Clarity Urine pH Ur Specific [place] Urine Protein Urine Glucose (UA) Urine Ketones Urine Occult Blood Urine Nitrate Urine Bilirubin Urine Urobilinogen Ur Leukocyte Esterase Urine WBC Ur Squamous Epith Cells Micro UA Comment Urine Culture Comments Urine Opiates Screen Ur Barbiturates Screen Ur Amphetamines Screen U Benzodiazepines Scrn Urine Cocaine Screen U Cannabinoids Screen 03/10/18 03/10/18 03/10/18 08:43 11:09 11:37 CBC w Diff WBC RBC Hgb POC Hgb (Calc) Hct POC Hct MCV MCH MCHC RDW Plt Count MPV WBC Differential Seg Neuts % (Manual) Band Neuts % (Manual) Lymphocytes % (Manual) Monocytes % (Manual) Eosinophils % (Manual) Abs Neuts (Manual) Differential Comment Platelet Estimate Platelet Morphology Puncture Site Patient Temperature VBG pH VBG pCO2 VBG pO2 VBG HCO3 VBG O2 Saturation VBG O2 Content VBG Base Excess VBG Carboxyhemoglobin VBG Methemoglobin Hemoglobin O2 Delivery Device Inspired O2 Critical Value POC Sodium Sodium POC Potassium Potassium POC Chloride Chloride Carbon Dioxide Anion Gap POC BUN BUN Creatinine POC Creatinine Estimated GFR POC Glucose 153 H 53 L 208 H Random Glucose Lactic Acid Calcium Phosphorus Magnesium Total Bilirubin AST ALT Alkaline Phosphatase Ammonia Troponin I Total Protein Albumin Beta-Hydroxybutyric Acd Ur Collection Type Urine Color Urine Clarity Urine pH Ur Specific [place] Urine Protein Urine Glucose (UA) Urine Ketones Urine Occult Blood Urine Nitrate Urine Bilirubin Urine Urobilinogen Ur Leukocyte Esterase Urine WBC Ur Squamous Epith Cells Micro UA Comment Urine Culture Comments Urine Opiates Screen Ur Barbiturates Screen Ur Amphetamines Screen U Benzodiazepines Scrn Urine Cocaine Screen U Cannabinoids Screen 03/10/18 03/10/18 03/10/18 11:55 11:55 12:23 CBC w Diff WBC RBC Hgb POC Hgb (Calc) Hct POC Hct MCV MCH MCHC RDW Plt Count MPV WBC Differential Seg Neuts % (Manual) Band Neuts % (Manual) Lymphocytes % (Manual) Monocytes % (Manual) Eosinophils % (Manual) Abs Neuts (Manual) Differential Comment Platelet Estimate Platelet Morphology Puncture Site Patient Temperature VBG pH VBG pCO2 VBG pO2 VBG HCO3 VBG O2 Saturation VBG O2 Content VBG Base Excess VBG Carboxyhemoglobin VBG Methemoglobin Hemoglobin O2 Delivery Device Inspired O2 Critical Value POC Sodium Sodium POC Potassium Potassium POC Chloride Chloride Carbon Dioxide Anion Gap POC BUN BUN Creatinine POC Creatinine Estimated GFR POC Glucose 285 H Random Glucose Lactic Acid Calcium Phosphorus Magnesium Total Bilirubin AST ALT Alkaline Phosphatase Ammonia Troponin I Total Protein Albumin Beta-Hydroxybutyric Acd Ur Collection Type Clean catch Urine Color Yellow Urine Clarity Clear Urine pH 7.5 Ur Specific [place] 1.010 Urine Protein Negative Urine Glucose (UA) 1000 or greater H Urine Ketones Negative Urine Occult Blood Trace Urine Nitrate Negative Urine Bilirubin Negative Urine Urobilinogen 0.2 Ur Leukocyte Esterase Negative Urine WBC 0-5 Ur Squamous Epith Cells 0-5 Micro UA Comment Culture not ind Urine Culture Comments Culture not ind Urine Opiates Screen Neg Ur Barbiturates Screen Neg Ur Amphetamines Screen Neg U Benzodiazepines Scrn Neg Urine Cocaine Screen Pos H U Cannabinoids Screen Neg - Imaging Impressions Chest X-Ray 03/10/18 10:49 CONCLUSION: No acute cardiopulmonary disease. Caprini VTE Risk Assessment Caprini VTE Risk Assessment: No/Low Risk (score <= 1) Caprini Risk Assessment Model: Point Value = 1 Point Value = 2 Point Value = 3 Point Value = 5 Age 41-60 Minor surgery BMI > 25 kg/m2 Swollen legs Varicose veins or History of unexplained or recurrent spontaneous Oral contraceptives or hormone replacement Sepsis (< 1 month) Serious lung disease, including pneumonia (< 1 month) Abnormal pulmonary function Acute myocardial infarction Congestive heart failure (< 1 month) History of inflammatory bowel disease Medical patient at bed rest Age 61-74 Arthroscopic surgery Major open surgery (> 45 min) Laparoscopic surgery (> 45 min) Malignancy Confined to bed (> 72 hours) Immobilizing plaster cast Central venous access Age >= 75 History of VTE Family history of VTE Factor V Leiden Prothrombin [id number] Lupus anticoagulant Anticardiolipin antibodies Elevated serum homocysteine Heparin-induced thrombocytopenia Other congenital or acquired thrombophilia Stroke (< 1 month) Elective arthroplasty Hip, pelvis, or leg fracture Acute spinal cord injury (< 1 month) Prophylaxis Regimen: Total Risk Factor Score Risk Level Prophylaxis Regimen 0-1 Low Early ambulation 2 Moderate Order ONE of the following: *Sequential Compression Device (SCD) *Heparin 5000 units SQ BID 3-4 Higher Order ONE of the following medications: *Heparin 5000 units SQ TID *Enoxaparin/Lovenox 40 mg SQ daily (WT < 150 kg, CrCl > 30 mL/min) *Enoxaparin/Lovenox 30 mg SQ daily (WT < 150 kg, CrCl > 10-29 mL/min) *Enoxaparin/Lovenox 30 mg SQ BID (WT < 150 kg, CrCl > 30 mL/min) AND/OR *Sequential Compression Device (SCD) 5 or more Highest Order ONE of the following medications: *Heparin 5000 units SQ TID (Preferred with Epidurals) *Enoxaparin/Lovenox 40 mg SQ daily (WT < 150 kg, CrCl > 30 mL/min) *Enoxaparin/Lovenox 30 mg SQ daily (WT < 150 kg, CrCl > 10-29 mL/min) *Enoxaparin/Lovenox 30 mg SQ BID (WT < 150 kg, CrCl > 30 mL/min) AND *Sequential Compression Device (SCD) Assessment and Plan - Assessment (1) Sepsis Code(s): A41.9 - Sepsis, unspecified organism Status: Acute (2) Syncope Code(s): R55 - Syncope and collapse Status: Acute - Plan This is a 47-year-old female patient with syncopal episode at home: Syncopal episode at home -Differential diagnosis includes possible arrhythmia/bradycardia, secondary to cocaine use, dehydration, rhabdomyolysis, hypoglycemia -Head CT ordered, awaiting results. -Status post 3 L NS bolus in ED. Will continue continuous IV fluid. -Echocardiogram ordered, awaiting results. -Continue cardiac telemetry, monitor for any arrhythmias. EKG reviewed, no ST changes to indicate any ischemia. -Will check orthostatic blood pressures. Follow. -Continue close neuro checks. -Supportive care. SIRS -Meets criteria with tachycardia and elevated lactic acid. UA negative. Chest x-ray negative. Patient is afebrile with no leukocytosis. -Will continue to monitor CBC in signs of infection. -Lactic acid likely elevated secondary to hypotension and syncopal episode. Acute kidney injury -Patient denies any history of chronic kidney disease. -Creatinine 1.7 on presentation. Will continue IV fluids. Continue to monitor BMP. Bilateral lower extremity leg cramps -Rule out rhabdomyolysis -Awaiting CPK level. -Status post 3 L NS bolus in ED. We will continue IV fluid. Uncontrolled Type 2 diabetes mellitus, chronic -Reports of blood sugar in the 600s at home. -Accu-Chek before meals at bedtime, sliding scale, cover as needed. -Monitor blood sugar trends. -Diabetic ADA diet. History of chronic back, neck pain and anxiety Opioid dependence -[employer] database reviewed, restarted home medications. History of multiple blood clots on anticoagulation: Will continue home Eliquis. Substance use: Tox screen positive for cocaine. Patient states she did this 2 weeks ago. Patient advised that this would have been out of her system and that length of time. She states that she only tried it one time and did not like it. Patient educated on importance of cessation of any substance use and risk of unwanted cardiovascular effects. DVT prophylaxis: SCDs. Eliquis.
[2018-03-10] MEDS: Sod Chloride 0.9% Inj 1,000 ML IV.CONT SCH ×2 (14:05→22:13)
[2018-03-10] MEDS: Insulin Detemir Inj 1,000 UNIT/10 ML Vial SQ SCH ×2 (14:06→21:55)
[2018-03-10] MEDS: Gabapentin 400 MG Capsule PO SCH ×2 (14:07→20:01)
[2018-03-10 14:08] LABS: Creatine Kinase 30 U/L (26-192)
--- NOTE | 2018-03-10 15:10 | CT ---
EXAM DATE: 03/10/2018 2:28 PM EDT AGE/SEX: 47 years / Female INDICATIONS: Syncope. CLINICAL DATA: This is the patient's initial encounter. Patient reports that signs and symptoms have been present for 1 day and indicates a pain score of 0/10. MEDICAL/SURGICAL HISTORY: Diabetes. Cholecystectomy. Tubal ligation. Nephrectomy and spinal surger y. RADIATION DOSE: 55.95 CTDI (mGy) COMPARISON: . TECHNIQUE: CT of the head without contrast. Using automated exposure control and adjustment of the mA and/or kV according to patient size, radiation dose was kept as low as reasonably achievable to ob tain optimal diagnostic quality images. DICOM format image data is available electronically for revi ew and comparison. FINDINGS: There is no evidence for intracranial hemorrhage, mass effect, mass lesions, edema, or extra-axial fl uid collections. The visualized bony structures appear intact. The ventricles are normal size for t he patient's age. There are no signs of acute infarction for technique. CONCLUSION: Unremarkable study. . Electronically signed by: Karen Mora MD 03/10/2018 3:09 PM EDT
[2018-03-10] MEDS: CARISOPRODOL 250 MG PO SCH ×3 (15:21→20:02)
[2018-03-10] MEDS: Insulin NovoLOG Aspart Correctional Sugar Inj SQ SCH ×3 (15:32→21:56)
[2018-03-10] MEDS: carBAMazepine 200 MG Tablet PO SCH ×2 (18:13→20:00)
--- NOTE | 2018-03-10 19:00 | ECHRPT ---
Indication: ATRIAL FIB CONCLUSIONS The left ventricular systolic function is normal with an estimated ejection fraction in the range of 60-65%. There is mild tricuspid valve regurgitation. BP: / HR: Rhythm: Sinus MEASUREMENTS (Male / Female) Normal Values Technical Quality:Good 2D ECHO LV Diastolic Diameter PLAX 4.5 cm 4.2 - 5.9 / 3.9 - 5.3 cm LV Systolic Diameter PLAX 3.1 cm IVS Diastolic Thickness 1.0 cm 0.6 - 1.0 / 0.6 - 0.9 cm LVPW Diastolic Thickness 1.0 cm 0.6 - 1.0 / 0.6 - 0.9 cm LV Relative Wall Thickness 0.5 RV Internal Dim ED PLAX 2.4 cm LVOT Diameter 1.9 cm LA Systolic Diameter LX 3.5 cm 3.0 - 4.0 / 2.7 - 3.8 cm LV Ejection Fraction MOD 4C 64.9 % LV Ejection Fraction 4C AL 65.5 % M-MODE Aortic Root Diameter MM 2.2 cm LA Systolic Diameter MM 3.8 cm LA Ao Ratio MM 1.7 AV Cusp Separation MM 1.6 cm DOPPLER AV Peak Velocity 149.0 cm/s AV Peak Gradient 8.9 mmHg LVOT Peak Velocity 129.0 cm/s LVOT Peak Gradient 6.7 mmHg AV Area Cont Eq pk 2.5 cm MV Area PHT 3.4 cm Mitral E Point Velocity 85.9 cm/s Mitral A Point Velocity 85.4 cm/s Mitral E to A Ratio 1.0 LV E' Lateral Velocity 8.3 cm/s Mitral E to LV E' Lateral Ratio 10.4 LV E' Septal Velocity 6.9 cm/s Mitral E to LV E' Septal Ratio 12.4 TR Peak Velocity 246.0 cm/s TR Peak Gradient 24.2 mmHg Right Atrial Pressure 10.0 mmHg Pulmonary Artery Systolic Pressu 34.2 mmHg Right Ventricular Systolic Press 34.2 mmHg PV Peak Velocity 118.0 cm/s PV Peak Gradient 5.6 mmHg FINDINGS LEFT VENTRICLE The left ventricular systolic function is normal with an estimated ejection fraction in the range of 60-65%. Normal left ventricular size. Wall thickness is normal. No regional wall motion abnormalities are present. RIGHT VENTRICLE Normal right ventricular size and systolic function. LEFT ATRIUM The left atrial size is normal. RIGHT ATRIUM The right atrial size is normal. ATRIAL SEPTUM Normal atrial septal thickness without atrial level shunting by limited color doppler interrogation. AORTA The aortic root and proximal ascending aorta are normal in size on limited imaging. MITRAL VALVE Structurally normal mitral valve. No mitral valve stenosis or regurgitation. AORTIC VALVE Trileaflet aortic valve. No aortic valve stenosis or regurgitation. TRICUSPID VALVE Structurally normal tricuspid valve. There is mild tricuspid valve regurgitation. The estimated pulmonary arterial pressure is 34.2 mmHg. PULMONARY VALVE No pulmonary valve regurgitation or stenosis. VESSELS The inferior vena cava is normal in size. PERICARDIUM No pericardial effusion. Aki Alejandro DO (Electronically Signed) Final Date:10 March 2018 19:00
--- NOTE | 2018-03-10 19:58 | ECG ---
Date Performed: 03/10/2018 Time Performed: 08:56:35 PTAGE: 47 years EKG: Sinus rhythm WITH SHORT [place] INTERVAL BORDERLINE ECG PREVIOUS TRACING : 10/31/2017 03.47 Since the previous tracing, no significant change noted DOCTOR: Eriberto Sin Interpretating Date/Time 03/10/2018 19:54:17
[2018-03-10] MEDS: Senna/Docusate Sodium 8.6/50 MG Tablet PO SCH (20:01)
[2018-03-11 00:25] VITALS: RESP 16
[2018-03-11 04:27] VITALS: BP 100/48; TEMP 98.8
[2018-03-11 06:14] LABS: Calcium 8.2 mg/dL (8.5-10.1); Carbon Dioxide 28.3 meq/L (21.0-32.0)
[2018-03-11] MEDS ORDERED: Insulin Detemir Inj 1,000 UNIT/10 ML Vial SQ SCH (08:00)
[2018-03-11] MEDS: Senna/Docusate Sodium 8.6/50 MG Tablet PO SCH (08:22)
[2018-03-11] MEDS: Gabapentin 400 MG Capsule PO SCH (08:22)
[2018-03-11] MEDS: carBAMazepine 200 MG Tablet PO SCH (08:23)
[2018-03-11] MEDS: Sod Chloride 0.9% Inj 1,000 ML IV.CONT SCH (08:25)
--- NOTE | 2018-03-11 10:08 | P.PN ---
Subjective Interval history: Follow up syncope, dehydration, uncontrolled DM and JARVIS. Patient seen and examined, with at bedside. Patient is feeling much improved. No reports of any acute events overnight. Denies any shortness of breath or chest pain. Reports of increased BS overnight. Now more controlled. Continued on Levemir and sliding scale. Diabetic diet and compliance discussed extensively. Discussed also with patient and regarding importance of avoiding all illegal substances. Also [facility] reviewed regarding home medications. Presentation could likely be related to too much narcotics. Patient advised to follow up with PCP and have discontinued home medications as stated in DC plan. All questions answered to the best of my ability. Patient expresses desire to comply with mediation regimen. Physical Exam Vital signs: Vital Signs 03/10/18 10:10 03/10/18 11:10 03/10/18 11:38 Temperature 97.8 F Pulse Rate 87 83 93 H Respiratory Rate 14 18 Blood Pressure 93/57 L 81/43 L 96/57 L Pulse Oximetry 97 98 99 03/10/18 12:10 03/10/18 12:36 03/10/18 12:52 Temperature 98.4 F 98.8 F Pulse Rate 89 86 85 Respiratory Rate 16 16 14 Blood Pressure 103/54 L 128/63 128/63 Pulse Oximetry 100 100 100 03/10/18 12:53 03/10/18 14:15 03/10/18 14:36 Temperature Pulse Rate 88 Respiratory Rate 35 H Blood Pressure 113/60 Pulse Oximetry 100 03/10/18 15:00 03/10/18 18:13 03/10/18 20:00 Temperature 98.4 F 98.3 F Pulse Rate 88 92 H 83 Respiratory Rate 22 25 H 18 Blood Pressure 102/50 L 98/57 L 119/55 L Pulse Oximetry 100 100 100 03/11/18 00:00 03/11/18 04:00 Temperature 97.0 F L 98.8 F Pulse Rate 86 92 H Respiratory Rate 16 16 Blood Pressure 98/54 L 100/48 L Pulse Oximetry 100 100 Intake & Output 03/10/18 03/11/18 03/11/18 18:59 06:59 18:59 Intake Total 1480 / 1480 1000 / 1000 1000 / 1000 Output Total 900 / 900 1999 / 1999 Balance 580 / 580 -1000 / -1000 1000 / 1000 Weight 66.3 kg 70.1 kg Intake: IV 1000 / 1000 1000 / 1000 1000 / 1000 NS Inj 1,000 ML @ 100 mls/hr IV 1000 / 1000 1000 / 1000 .CONT .Q10H HUYEN Rx#:[id number] NS Inj 1,000 ML @ Wide Open IV. 1000 / 1000 SIG BOLUS ONE Rx#:[id number] Oral 480 / 480 Output: Urine 900 / 900 2000 / 2000 Other: # Voids 4 Date of Last Bowel Movement 03/10/18 # Bowel Movements 1 Weight On Admission 63.503 kg Narrative: GENERAL: Well-developed, well-nourished patient in NAD. SKIN: Warm and dry. No rash. Multiple old scars from skin grafting. Right forearm with scabbing, healed cellulitis status post antibiotic. No open wounds. HEAD: Normocephalic. Atraumatic. EYES: Pupils equal and round. No scleral icterus. No injection or drainage. ENT: No nasal bleeding or discharge. Mucous membranes pink and moist. NECK: Supple. Trachea midline. CARDIOVASCULAR: Regular rate and rhythm. S1, S2 noted. No murmur appreciated. RESPIRATORY: No accessory muscle use. Clear to auscultation. Breath sounds equal bilaterally. GASTROINTESTINAL: Abdomen soft, non-tender, nondistended. Normoactive bowel sounds x4. MUSCULOSKELETAL: No obvious deformities. Extremities without clubbing, cyanosis , or edema. NEUROLOGICAL: Awake and alert. No obvious cranial nerve deficits. Motor grossly within normal limits. 5/5 muscle strength in bilateral upper and lower extremities. Normal speech. PSYCHIATRIC: Appropriate mood and affect; insight and judgment normal. Results - Labs CBC & Chem 7: 03/10/18 08:30 03/11/18 04:30 Laboratory Results - last 24 hr 03/10/18 03/10/18 03/10/18 08:30 08:30 08:30 WBC Differential Manual diff final Seg Neuts % (Manual) 77 H Band Neuts % (Manual) 2 Lymphocytes % (Manual) 16 Monocytes % (Manual) 3 Eosinophils % (Manual) 2 Abs Neuts (Manual) 6.6 Platelet Estimate Normal Platelet Morphology Normal Sodium 138 Potassium 3.7 Chloride 96 L Carbon Dioxide Anion Gap 11 BUN Creatinine Estimated GFR POC Glucose Random Glucose Calcium Total Creatine Kinase Cancelled Troponin I Cancelled Ur Collection Type Urine Color Urine Clarity Urine pH Ur Specific Amo Urine Protein Urine Glucose (UA) Urine Ketones Urine Occult Blood Urine Nitrate Urine Bilirubin Urine Urobilinogen Ur Leukocyte Esterase Urine WBC Ur Squamous Epith Cells Micro UA Comment Urine Culture Comments Urine Opiates Screen Ur Barbiturates Screen Carbamazepine 7.9 Ur Amphetamines Screen U Benzodiazepines Scrn Urine Cocaine Screen U Cannabinoids Screen 03/10/18 03/10/18 03/10/18 11:09 11:37 11:55 WBC Differential Seg Neuts % (Manual) Band Neuts % (Manual) Lymphocytes % (Manual) Monocytes % (Manual) Eosinophils % (Manual) Abs Neuts (Manual) Platelet Estimate Platelet Morphology Sodium Potassium Chloride Carbon Dioxide Anion Gap BUN Creatinine Estimated GFR POC Glucose 53 L 208 H Random Glucose Calcium Total Creatine Kinase Troponin I Ur Collection Type Urine Color Urine Clarity Urine pH Ur Specific Amo Urine Protein Urine Glucose (UA) Urine Ketones Urine Occult Blood Urine Nitrate Urine Bilirubin Urine Urobilinogen Ur Leukocyte Esterase Urine WBC Ur Squamous Epith Cells Micro UA Comment Urine Culture Comments Urine Opiates Screen Neg Ur Barbiturates Screen Neg Carbamazepine Ur Amphetamines Screen Neg U Benzodiazepines Scrn Neg Urine Cocaine Screen Pos H U Cannabinoids Screen Neg 03/10/18 03/10/18 03/10/18 11:55 12:23 13:36 WBC Differential Seg Neuts % (Manual) Band Neuts % (Manual) Lymphocytes % (Manual) Monocytes % (Manual) Eosinophils % (Manual) Abs Neuts (Manual) Platelet Estimate Platelet Morphology Sodium Potassium Chloride Carbon Dioxide Anion Gap BUN Creatinine Estimated GFR POC Glucose 285 H Random Glucose Calcium Total Creatine Kinase 30 Troponin I Less than 0.02 L Ur Collection Type Clean catch Urine Color Yellow Urine Clarity Clear Urine pH 7.5 Ur Specific Amo 1.010 Urine Protein Negative Urine Glucose (UA) 1000 or greater H Urine Ketones Negative Urine Occult Blood Trace Urine Nitrate Negative Urine Bilirubin Negative Urine Urobilinogen 0.2 Ur Leukocyte Esterase Negative Urine WBC 0-5 Ur Squamous Epith Cells 0-5 Micro UA Comment Culture not ind Urine Culture Comments Culture not ind Urine Opiates Screen Ur Barbiturates Screen Carbamazepine Ur Amphetamines Screen U Benzodiazepines Scrn Urine Cocaine Screen U Cannabinoids Screen 03/10/18 03/10/18 03/10/18 18:16 19:33 21:49 WBC Differential Seg Neuts % (Manual) Band Neuts % (Manual) Lymphocytes % (Manual) Monocytes % (Manual) Eosinophils % (Manual) Abs Neuts (Manual) Platelet Estimate Platelet Morphology Sodium Potassium Chloride Carbon Dioxide Anion Gap BUN Creatinine Estimated GFR POC Glucose 448 H 572 H* 432 H Random Glucose Calcium Total Creatine Kinase Troponin I Ur Collection Type Urine Color Urine Clarity Urine pH Ur Specific Amo Urine Protein Urine Glucose (UA) Urine Ketones Urine Occult Blood Urine Nitrate Urine Bilirubin Urine Urobilinogen Ur Leukocyte Esterase Urine WBC Ur Squamous Epith Cells Micro UA Comment Urine Culture Comments Urine Opiates Screen Ur Barbiturates Screen Carbamazepine Ur Amphetamines Screen U Benzodiazepines Scrn Urine Cocaine Screen U Cannabinoids Screen 03/11/18 03/11/18 03/11/18 00:18 01:42 04:30 WBC Differential Seg Neuts % (Manual) Band Neuts % (Manual) Lymphocytes % (Manual) Monocytes % (Manual) Eosinophils % (Manual) Abs Neuts (Manual) Platelet Estimate Platelet Morphology Sodium 141 Potassium 4.0 Chloride 106 D Carbon Dioxide 28.3 Anion Gap 7 BUN 17 Creatinine 1.00 Estimated GFR 59 L POC Glucose 371 H 304 H Random Glucose 174 H Calcium 8.2 L D Total Creatine Kinase Troponin I Ur Collection Type Urine Color Urine Clarity Urine pH Ur Specific Amo Urine Protein Urine Glucose (UA) Urine Ketones Urine Occult Blood Urine Nitrate Urine Bilirubin Urine Urobilinogen Ur Leukocyte Esterase Urine WBC Ur Squamous Epith Cells Micro UA Comment Urine Culture Comments Urine Opiates Screen Ur Barbiturates Screen Carbamazepine Ur Amphetamines Screen U Benzodiazepines Scrn Urine Cocaine Screen U Cannabinoids Screen 03/11/18 03/11/18 06:07 08:05 WBC Differential Seg Neuts % (Manual) Band Neuts % (Manual) Lymphocytes % (Manual) Monocytes % (Manual) Eosinophils % (Manual) Abs Neuts (Manual) Platelet Estimate Platelet Morphology Sodium Potassium Chloride Carbon Dioxide Anion Gap BUN Creatinine Estimated GFR POC Glucose 218 H 262 H Random Glucose Calcium Total Creatine Kinase Troponin I Ur Collection Type Urine Color Urine Clarity Urine pH Ur Specific Amo Urine Protein Urine Glucose (UA) Urine Ketones Urine Occult Blood Urine Nitrate Urine Bilirubin Urine Urobilinogen Ur Leukocyte Esterase Urine WBC Ur Squamous Epith Cells Micro UA Comment Urine Culture Comments Urine Opiates Screen Ur Barbiturates Screen Carbamazepine Ur Amphetamines Screen U Benzodiazepines Scrn Urine Cocaine Screen U Cannabinoids Screen - Imaging Impressions Head CT 03/10/18 00:00 CONCLUSION: Unremarkable study. . Chest X-Ray 03/10/18 10:49 CONCLUSION: No acute cardiopulmonary disease. Assessment and Plan - Assessment (1) Sepsis Code(s): A41.9 - Sepsis, unspecified organism Status: Acute (2) Syncope Code(s): R55 - Syncope and collapse Status: Acute - Plan This is a 47-year-old female patient with syncopal episode at home: Syncopal episode at home -Differential diagnosis includes possible arrhythmia/bradycardia, secondary to cocaine use, dehydration, hypoglycemia -Head CT ordered, negative. -No further episodes of syncope since presentation. -Status post 3 L NS bolus in ED. Continued IVF overnight. Tolerating PO intake. -Echocardiogram ordered, adequate EF. -Continued on cardiac telemetry, no arrhythmias overnight. -EKG reviewed, no ST changes to indicate any ischemia. -Orthostatic blood pressures negative. SIRS. Resolved. -Met criteria with tachycardia and elevated lactic acid. UA negative. Chest x- ray negative. Patient is afebrile with no leukocytosis. No signs of infection. -Will continue to monitor CBC in signs of infection. -Lactic acid likely elevated secondary to hypotension and syncopal episode. Resolved. Acute kidney injury. Resolved. -Patient denies any history of chronic kidney disease. -Creatinine 1.7 on presentation. Resolved to 1.0. Bilateral lower extremity leg cramps. resolved. -Ruled out rhabdomyolysis -Status post 3 L NS bolus in ED. Uncontrolled Type 2 diabetes mellitus, chronic -Reports of blood sugar in the 600s at home. -Accu-Chek before meals at bedtime, sliding scale, cover as needed. -Monitor blood sugar trends. -Diabetic ADA diet. -Noncompliance addressed. Rx per dc orders. Patient expresses want to comply with regimen. Advised on diabetic diet. History of chronic back, neck pain and anxiety Opioid dependence -[facility] database reviewed. -Restarted medications as prescribed, see dc plan. History of multiple blood clots on anticoagulation: Will continue home Eliquis. Substance use: Tox screen positive for cocaine. Patient states she did this 2 weeks ago. Patient advised that this would have been out of her system and that length of time. She states that she only tried it one time and did not like it. Patient educated on importance of cessation of any substance use and risk of unwanted cardiovascular effects. DVT prophylaxis: SCDs. Eliquis.
[2018-03-11 10:50] VITALS: PULSE 89
[2018-03-11] MEDS: Insulin NovoLOG Aspart Correctional Sugar Inj SQ SCH (11:07)
[2018-03-11] MEDS: CARISOPRODOL 250 MG PO SCH (11:09)
[2018-03-11] MEDS ORDERED: Prazosin HCl 1 MG Capsule PO SCH (12:00)
[2018-03-11 15:25] LABS: Hemoglobin A1c 12.7 % (4.3-6.0)
[2018-03-11] MEDS ORDERED: Meloxicam 7.5 MG Tablet PO SCH (21:00)
[2018-03-11] MEDS ORDERED: carBAMazepine 200 MG Tablet PO SCH (21:00)
== END 2018-03-11 11:45 | disposition home or self-care (01) ==
LOC: PHEDA 07:24 → PHED 07:24 → PHICU 07:24 → PHEDA 12:39 → PHICU 13:30
PROVIDERS: ADMIT Internal Medicine; ATTEND Internal Medicine

== ENCOUNTER 2018-08-02 18:39 | Inpatient (IN) ==
[2018-08-02] MEDS ORDERED: Norepinephrine Inj 4 MG/4 ML Ampul ONE (18:46)
[2018-08-02] MEDS: Sod Chloride 0.9% Inj 1,000 ML IV.CONT SCH (18:56)
--- NOTE | 2018-08-02 19:33 | ED ---
HPI General Chief Complaint: Cardiac Arrest/CPR Stated Complaint: Cardiac Arrest Time Seen by Provider: 08/02/18 19:13 Source: EMS Mode of arrival: EMS Limitations: altered mental status History of Present Illness HPI narrative: 47 year old female with history of opiate abuse found unresponsive in a car. Found to be in asystole, CPR started by EMS, patient intubated, and given 4 doses of narcan with return of spontaneous circulation. Arrives in the ED hypotensive in 70's and unresponsive. MD complaint: Reports found unresponsive Onset (ago): minute(s) (30) Initial findings in the field: unresponsive ROSC in the field: Yes Treatments prior to arrival: Reports intubation, chest compressions and epinephrine mgs # (4) Related Data Home Medications Medication Instructions Recorded Confirmed alprazolam [Xanax] 2 mg PO QID 02/16/18 06/28/18 gabapentin [Neurontin] 1,600 - 3,200 mg PO BID 02/16/18 06/28/18 insulin glargine [Lantus Solostar 25 - 30 unit SUB-Q DAILY 02/16/18 06/28/18 U-100 Insulin] insulin lispro [Humalog U-100 1 sliding scale dose SUB-Q UD 02/16/18 06/28/18 Insulin] quetiapine [Seroquel] 325 mg PO BID 02/16/18 06/28/18 apixaban [Eliquis] 5 mg PO BID 03/10/18 06/28/18 carbamazepine [Epitol] 200 mg PO BID 03/10/18 06/28/18 cyclobenzaprine 10 mg PO BID 03/10/18 06/28/18 ondansetron HCl [Zofran] 4 mg PO QID PRN 03/10/18 06/28/18 prazosin 2 mg PO BID 03/10/18 06/28/18 ropinirole [Requip] 2 mg PO HS 03/10/18 06/28/18 hydromorphone [Dilaudid] 4 mg PO Q6H 06/03/18 06/28/18 celecoxib 200 mg DAILY 06/28/18 06/28/18 meloxicam 7.5 mg PO BID 06/28/18 06/28/18 promethazine 25 mg PO Q6H PRN 06/28/18 06/28/18 Allergies Allergy/AdvReac Type Severity Reaction Status Date / Time ketorolac Allergy Severe Anaphylaxis Verified 06/28/18 18:57 Review of Systems ROS Unobtainable ROS Unobtainable: unobtainable due to endotracheal tube PMFSH Medical History Medical History Obstructive uropathy (Acute) Bipolar disorder (Acute) Opioid dependence (Acute) Neuropathy (Acute) Diabetes (Acute) Heroin abuse (Acute) Surgical History Surgical History History of nephrostomy (Acute) History of cholecystectomy (Acute) H/O skin graft (Acute) H/O Spinal surgery (Acute) Social History Social History Substance History: No History of Abuse Second Hand Smoke Exposure: No Smoking Status: Unknown if ever smoked How Often Do You Have a Drink Containing Alcohol: Unable to Obtain Recent Travel in [facility] within the Last 8 Weeks: No Recent Out of Country Travel within the Last 8 Weeks: No Immunization History Tetanus Immunization Year if Known: 2014 Exam Narrative Exam Narrative: GENERAL: Intubated, sedated, unresponsive, ET tube in place SKIN: Focused skin assessment warm/dry. Multiple scars from previous surgeries in the left upper extremity and left lower extremity HEAD: Atraumatic. Normocephalic. EYES: Pupils fixed and dilated ENT: No nasal bleeding or discharge. Mucous membranes pink and moist. NECK: Trachea midline. No JVD. CARDIOVASCULAR: Regular rate and rhythm. No murmur appreciated. RESPIRATORY: Intubated, ventilated. Clear to auscultation. Breath sounds equal bilaterally. GASTROINTESTINAL: Abdomen soft, non-tender, nondistended. Hepatic and splenic margins not palpable. MUSCULOSKELETAL: No obvious deformities. No clubbing. No cyanosis. No edema. Course Initial Documented Vital Signs Temperature 98 F 08/02/18 18:42 Pulse Rate 90 08/02/18 18:42 Respiratory Rate 14 08/02/18 18:42 Blood Pressure 74/39 L 08/02/18 18:42 Pulse Oximetry 100 08/02/18 18:42 Last Documented Vital Signs Temperature 98 F 08/02/18 18:42 Pulse Rate 101 H 08/02/18 20:09 Respiratory Rate 15 08/02/18 19:28 Blood Pressure 158/78 H 08/02/18 20:09 Pulse Oximetry 98 08/02/18 20:09 Procedures Central Line Placement Left IJ: Time Out Performed: No Patient Placed on Monitor/Pulse Ox: Yes MD Prep: mask, gown and gloves Central Line Prep: Chlorhexidine scrub Ultrasound Used for Placement: Yes Central Line Lumen Inserted: triple Post Procedure: sutured in place, good blood return, all ports aspirated, flushed, capped and sterile dressing applied Post Procedure X-Ray: tip of catheter in good position and no pneumothorax seen Patient Tolerated Procedure: no complications Critical Care Time Critical Care Time: Yes Total Critical Care Time: 30 Attestation: Aggregate critical care time was 30 minutes. Time to perform other separately billable procedures was not included in the critical care time. My time did not include minutes spent treating any other patients simultaneously or on activities that did not directly contribute to the patient's treatment. The services I provided to this patient were to treat and/or prevent clinically significant deterioration that could result in: , cardiac failure, respiratory failure I provided critical care services requiring my management, as noted below: Chart data review, documentation time, medication orders and management, vital sign assessments/reviewing monitor data, ordering and reviewing lab tests, ordering and interpreting/reviewing x-rays and diagnostic studies, care of the patient and discussion of the patient with the admitting physicians. Medical Decision Making MDM Narrative Medical decision making narrative: 47-year-old female presents after cardiac arrest likely due to opiate overdose. Patient had return of spontaneous circulation prior to arrival. Patient arrives hypotensive and was started on Levophed with improvement. Will obtain labs, CT head, chest x-ray and admit to ICU. Discussed with Dr. Cabrera who accepts patient for admission to the ICU. Patient able to be weaned off of Levophed. Medical Screen Exam Complete: Yes Emergency Medical Condition: Yes Lab Data Result diagrams: 08/02/18 19:20 08/02/18 19:20 Lab Results 08/02/18 08/02/18 08/02/18 Range/Units 19:20 19:20 19:20 WBC 9.2 (4.0-11.0) th/mm3 RBC 2.38 L (4.00-5.30) mil/mm3 Hgb 7.3 L (11.6-15.3) gm/dL Hct 23.7 L (35.0-46.0) % MCV 99.3 (80.0-100.0) fL MCH 30.8 (27.0-34.0) pg MCHC 31.0 L (32.0-36.0) % RDW 17.2 (11.6-17.2) % Plt Count 358 (150-450) th/mm3 MPV 8.1 (7.0-11.0) fL Neut % (Auto) 76.3 H (16.0-70.0) % Lymph % (Auto) 19.1 (9.0-44.0) % [place] % (Auto) 2.6 (0.0-8.0) % Eos % (Auto) 1.4 (0.0-4.0) % Baso % (Auto) 0.6 (0.0-2.0) % Neut # (Auto) 7.0 (1.8-7.7) th/mm3 Lymph # (Auto) 1.8 (1.0-4.8) th/mm3 [place] # (Auto) 0.2 (0.0-0.9) th/mm3 Eos # (Auto) 0.1 (0.0-0.4) th/mm3 Baso # (Auto) 0.1 (0.0-0.2) th/mm3 WBC Differential . Differential Comment Auto diff final PT 10.7 (9.8-11.6) sec INR 1.1 Ratio APTT 29.2 (23.4-31.7) sec Sodium 131 L (136-145) meq/L Potassium 5.1 (3.5-5.1) meq/L Chloride 100 (98-107) meq/L Carbon Dioxide 14.5 L (21.0-32.0) meq/L Anion Gap 17 H (5-15) meq/L BUN 30 H (7-18) mg/dL Creatinine 1.85 H (0.50-1.00) mg/dL Estimated GFR 29 L (>89) mL/min Random Glucose 410 H (74-106) mg/dL Lactic Acid (0.4-2.0) mmol/L Calcium 7.8 L (8.5-10.1) mg/dL Magnesium 2.2 (1.5-2.5) mg/dL Total Bilirubin 0.3 (0.2-1.0) mg/dL AST 185 H (15-37) U/L ALT 59 H (10-53) U/L Alkaline Phosphatase 324 H (45-117) U/L Troponin I 0.04 (0.02-0.05) ng/mL Total Protein 6.7 (6.4-8.2) g/dL Albumin 3.1 L (3.4-5.0) g/dL Urine Color (Yellw/Straw) Urine Clarity (Clear) Urine pH (5.0-8.5) Ur Specific [place] (1.002-1.035) Urine Protein (Neg-Trace) mg/dL Urine Glucose (UA) (Negative) mg/dL Urine Ketones (Negative) mg/dL Urine Occult Blood (Negative) Urine Nitrate (Negative) Urine Bilirubin (Negative) Urine Urobilinogen (Less than 2) mg/dL Ur Leukocyte Esterase (Negative) Urine RBC (0-3) /hpf Urine WBC (0-5) /hpf Ur Squamous Epith Cells (0-5) /hpf Micro UA Comment Ur Microscopic Review Urine Culture Comments Urine Opiates Screen (Neg) Ur Barbiturates Screen (Neg) Ur Amphetamines Screen (Neg) U Benzodiazepines Scrn (Neg) Urine Cocaine Screen (Neg) U Cannabinoids Screen (Neg) 08/02/18 08/02/18 08/02/18 Range/Units 19:20 19:20 19:20 WBC (4.0-11.0) th/mm3 RBC (4.00-5.30) mil/mm3 Hgb (11.6-15.3) gm/dL Hct (35.0-46.0) % MCV (80.0-100.0) fL MCH (27.0-34.0) pg MCHC (32.0-36.0) % RDW (11.6-17.2) % Plt Count (150-450) th/mm3 MPV (7.0-11.0) fL Neut % (Auto) (16.0-70.0) % Lymph % (Auto) (9.0-44.0) % [place] % (Auto) (0.0-8.0) % Eos % (Auto) (0.0-4.0) % Baso % (Auto) (0.0-2.0) % Neut # (Auto) (1.8-7.7) th/mm3 Lymph # (Auto) (1.0-4.8) th/mm3 [place] # (Auto) (0.0-0.9) th/mm3 Eos # (Auto) (0.0-0.4) th/mm3 Baso # (Auto) (0.0-0.2) th/mm3 WBC Differential Differential Comment PT (9.8-11.6) sec INR Ratio APTT (23.4-31.7) sec Sodium (136-145) meq/L Potassium (3.5-5.1) meq/L Chloride (98-107) meq/L Carbon Dioxide (21.0-32.0) meq/L Anion Gap (5-15) meq/L BUN (7-18) mg/dL Creatinine (0.50-1.00) mg/dL Estimated GFR (>89) mL/min Random Glucose (74-106) mg/dL Lactic Acid 8.0 H* (0.4-2.0) mmol/L Calcium (8.5-10.1) mg/dL Magnesium (1.5-2.5) mg/dL Total Bilirubin (0.2-1.0) mg/dL AST (15-37) U/L ALT (10-53) U/L Alkaline Phosphatase (45-117) U/L Troponin I (0.02-0.05) ng/mL Total Protein (6.4-8.2) g/dL Albumin (3.4-5.0) g/dL Urine Color Yellow (Yellw/Straw) Urine Clarity Hazy H (Clear) Urine pH 6.0 (5.0-8.5) Ur Specific [place] 1.011 (1.002-1.035) Urine Protein 100 H (Neg-Trace) mg/dL Urine Glucose (UA) 500 or greater (Negative) mg/dL Urine Ketones Negative (Negative) mg/dL Urine Occult Blood Small H (Negative) Urine Nitrate Negative (Negative) Urine Bilirubin Negative (Negative) Urine Urobilinogen Less than 2 (Less than 2) mg/dL Ur Leukocyte Esterase Negative (Negative) Urine RBC 22 H (0-3) /hpf Urine WBC 10 H (0-5) /hpf Ur Squamous Epith Cells 1 (0-5) /hpf Micro UA Comment Cath-culture ind Ur Microscopic Review Not Reportable Urine Culture Comments Cath-cult indicated Urine Opiates Screen Neg (Neg) Ur Barbiturates Screen Neg (Neg) Ur Amphetamines Screen Neg (Neg) U Benzodiazepines Scrn Neg (Neg) Urine Cocaine Screen Pos H (Neg) U Cannabinoids Screen Neg (Neg) ECG Data Attestation: I personally reviewed and interpreted this ECG as follows: Interpretation: Normal sinus rhythm, rate of 71, no ST or T wave changes Discharge Plan Discharge Disposition Patient Disposition: ED Admit(ED Internal Use Only) Discharge Condition Condition: Serious Discharge Order Discharge Orders: ED Use Only Admit Order (Routine); Ordered 08/02/18 Ordered By: Lesa Ulloa Discharge Details Diagnosis: Cardiac arrest Physicians Team ED Provider: Lesa Ulloa Primary Care Provider: Sukumar Logan Attending Provider: Daniel Sandoval Status ED Status: Admitted Patient
[2018-08-02 19:38] LABS: Baso # (Auto) 0.1 th/mm3 (0.0-0.2); Baso % (Auto) 0.6 % (0.0-2.0); Eos # (Auto) 0.1 th/mm3 (0.0-0.4); Eos % (Auto) 1.4 % (0.0-4.0); Hematocrit 23.7 % (35.0-46.0); Hemoglobin 7.3 gm/dL (11.6-15.3); Lymph # (Auto) 1.8 th/mm3 (1.0-4.8); Lymph % (Auto) 19.1 % (9.0-44.0); Mean Corpuscular Hemoglobin 30.8 pg (27.0-34.0); Mean Corpuscular Volume 99.3 fL (80.0-100.0); Mean Platelet Volume 8.1 fL (7.0-11.0); Mono # (Auto) 0.2 th/mm3 (0.0-0.9); Mono % (Auto) 2.6 % (0.0-8.0); Neut % (Auto) 76.3 % (16.0-70.0); Platelet Count 358 th/mm3 (150-450); Red Blood Count 2.38 mil/mm3 (4.00-5.30); Red Cell Distribution Width 17.2 % (11.6-17.2); White Blood Count 9.2 th/mm3 (4.0-11.0)
[2018-08-02 19:49] LABS: Activated Partial Thrombo Time 29.2 sec (23.4-31.7); INR 1.1 Ratio; Prothrombin Time 10.7 sec (9.8-11.6)
[2018-08-02 19:50] LABS: Amphetamine Screen,Urine Neg (Neg); Barbiturate Screen,Urine Neg (Neg); Bilirubin,Urine Negative (Negative); Cannabinoid Screen,Urine Neg (Neg); Clarity,Urine Hazy (Clear); Cocaine Screen,Urine Pos (Neg); Color,Urine Yellow (Yellw/Straw); Glucose,Urine (UA) 500 or Greater mg/dL (Negative); Leukocyte Esterase,Urine Negative (Negative); Nitrite,Urine Negative (Negative); Specific Gravity,Urine 1.011 (1.002-1.035); Squamous Epithelial Cell,Urine 1 /hpf (0-5)
[2018-08-02 19:58] LABS: Opiate Screen,Urine Neg (Neg)
[2018-08-02 20:17] LABS: Alanine Aminotransferase 59 U/L (10-53); Albumin 3.1 g/dL (3.4-5.0); Alkaline Phosphatase 324 U/L (45-117); Anion Gap 17 meq/L (5-15); Aspartate Aminotransferase 185 U/L (15-37); Blood Urea Nitrogen 30 mg/dL (7-18); Calcium 7.8 mg/dL (8.5-10.1); Carbon Dioxide 14.5 meq/L (21.0-32.0); Chloride 100 meq/L (98-107); Glomerular Filtration Rate 29 mL/min (>89); Glucose,Random 410 mg/dL (74-106); Magnesium 2.2 mg/dL (1.5-2.5); Potassium 5.1 meq/L (3.5-5.1); Sodium 131 meq/L (136-145); Total Protein 6.7 g/dL (6.4-8.2); Troponin I 0.04 ng/mL (0.02-0.05)
--- NOTE | 2018-08-02 20:32 | XR ---
EXAM DATE: 08/02/2018 7:46 PM EST AGE/SEX: 47 years / Female INDICATIONS: OG tube, ET tube, and central line placement. CLINICAL DATA: This is the patient's initial encounter. Patient reports that signs and symptoms have been present for 1 day and indicates a pain score of Nonresponsive. MEDICAL/SURGICAL HISTORY: Non-responsive. Non-responsive. COMPARISON: [facility], CHEST 1V SINGLE AP, 03/10/2018. . FINDINGS: ET tube tip is at the level of the valerie. Left internal jugular catheter tip at the cavoatrial junct ion. Gastric tip and side-port project within the stomach. There is patchy opacity in the suprahilar region bilaterally. The remainder of the lungs are clear. The heart is normal in size. Both hemidiaph ragms well delineated. CONCLUSION: ET tube is at the level of the valerie and needs to be withdrawn 2 cm. Electronically signed by: Srini Matson MD Board Certified Radiologist 08/02/2018 8:30 PM EST
--- NOTE | 2018-08-02 20:36 | CT ---
EXAM DATE: 08/02/2018 8:11 PM EST AGE/SEX: 47 years / Female INDICATIONS: Post code; overdose. CLINICAL DATA: This is the patient's initial encounter. Patient reports that signs and symptoms have been present for 1 day and indicates a pain score of Nonresponsive. MEDICAL/SURGICAL HISTORY: Renal calculi. substance abuse Cholecystectomy. spinal surgery RADIATION DOSE: 46.10 CTDI (mGy) COMPARISON: [facility], CT HEAD W/O CONTRAST, 03/10/2018. . TECHNIQUE: CT of the head without contrast. Using automated exposure control and adjustment of the mA and/or kV according to patient size, radiation dose was kept as low as reasonably achievable to ob tain optimal diagnostic quality images. DICOM format image data is available electronically for revi ew and comparison. FINDINGS: Cerebrum: When compared to February 2018, less sulci are discernible and there is less differentiation between potter and white matter. The ventricles are normal in size, but slightly smaller than on the p rior CT. No evidence of midline shift. No evidence of acute blood products. Posterior Fossa: The cerebellum and brainstem are intact. The ambient wing cistern is not discernib le on either side and was discernible on the prior CT. The 4th ventricle is midline. The cerebellopo ntine angle is unremarkable. Extracranial: The visualized portion of the orbits is intact. Opacification of multiple bilateral et hmoids and small air-fluid levels in the sphenoid sinus. Skull: The calvaria is intact. No evidence of skull fracture. CONCLUSION: 1. Findings suggest diffuse cerebral edema with loss of delineation of potter-white matter differentia tion and diffuse sulcal effacement. No evidence of mass effect or acute blood products. 2. Ethmoid and sphenoid sinus disease. . Electronically signed by: Srini Matson MD Board Certified Radiologist 08/02/2018 8:34 PM EST
[2018-08-02 20:42] VITALS: O2SAT 100
[2018-08-02] MEDS ORDERED: Metoprolol Inj 5 MG/5 ML Vial ONE (20:46)
[2018-08-02] MEDS ORDERED: Labetalol HCl Inj 100 MG/20 ML Vial ONE (20:47)
[2018-08-02 20:48] LABS: ABG Base Excess -11.7 mmol/L (-2-2); ABG PCO2 42 mmHg (38-42); ABG PO2 135 mmHG (61-120)
[2018-08-02 21:10] LABS: Alcohol 4 mg/dL (0-5)
[2018-08-02] MEDS ORDERED: Sodium Phosphate Inj 30 MMOL in Sodium Chlor 0.9% Inj 250 ML IV.SIG PRN (21:18)
[2018-08-02] MEDS ORDERED: Dextrose 50% in Water 50 ML Vial IV.PUSH PRN (21:18)
[2018-08-02] MEDS ORDERED: Magnesium Sulfate Inj 4 GM in Sodium Chlor 0.9% Inj 92 ML IV.SIG PRN (21:18)
[2018-08-02] MEDS ORDERED: Potassium Chlor 20 mEq Premix 20 MEQ/100 ML PIGGYBACK IV.SIG PRN ×2 (21:18)
[2018-08-02] MEDS ORDERED: Magnesium Sulfate Inj 2 GM in Sodium Chlor 0.9% Inj 96 ML IV.SIG PRN (21:18)
[2018-08-02] MEDS ORDERED: Potassium Chlor 40 mEq Premix 40 MEQ/100 ML PIGGYBACK IV.SIG PRN ×2 (21:18)
[2018-08-02] MEDS ORDERED: Potassium Phosphate 500 MG Soluble Tablet PO PRN ×2 (21:18)
[2018-08-02] MEDS ORDERED: Magnesium Oxide 400 MG Tablet PO PRN (21:18)
[2018-08-02] MEDS ORDERED: Potassium Phosphate Inj 30 MMOL in Sodium Chlor 0.9% Inj 250 ML IV.SIG PRN (21:18)
[2018-08-02] MEDS ORDERED: Potassium Chloride Liq 20 MEQ/15 ML UDC PO PRN ×2 (21:18)
--- NOTE | 2018-08-02 21:25 | P.HPCC ---
History of Present Illness Service: Critical care medicine Primary Care Physician: Sukumar Logan Chief Complaint: Out of hospital cardiac arrest History of Present Illness: This is a 47-year-old female with a history of bipolar disorder and substance abuse disorder who presents as an out of hospital cardiac arrest. Per reports, she was found unresponsive in asystole. She was down for an unknown time. ROSC was obtained and she was brought into the emergency department with a persistently poor neurologic exam. CT head demonstrates significant and diffuse cerebral edema with loss of potter-white matter differentiation and cerebral effacement. The patient received no sedating or paralytic medications in the prehospital setting. She received no sedating or paralytic medications in the emergency department or in the intensive care unit. Her urine drug screen is positive for cocaine. When I evaluated the patient, her pupils are 6 mm, bilaterally equal fixed and dilated. She has no corneal reflex. She has no cough or gag. She is not ever believing the ventilator. She has no oculocephalic reflex. She has no oculovestibular reflex. She has no noted movement to painful stimuli in all 4 extremities. Her GCS is 3. No additional information is available from the patient. Review of systems is unobtainable. On my evaluation her blood pressure is 220 mmHg systolic. Clinically it appears that the patient is in active cerebral herniation. Due to the prolonged downtime and concern for active cerebral herniation, decision was made not to pursue therapeutic hypothermia, is this likely will not serve any benefit in his significant risks in this patient. Further, patients with this degree of cerebral edema and patient's with active intoxication/polysubstance abuse were not included in any of the trials showing benefit of therapeutic hypothermia. Inpatient Certification: I certify that the inpatient services were ordered in accordance with Medicare regulations governing the order. This includes certification that hospital inpatient services are reasonable and necessary and in the case of services not specified as inpatient-only under 42 CFR 419.22(n), that they are appropriately provided as inpatient services in accordance to with the 2-midnight benchmark under 43 CFR 412.3(e) Estimated Total Length of Stay (Days): 7 Plans for Post Hospital Care: Not yet determined Review of Systems unobtainable due to endotracheal tube, unobtainable due to mental status PMFSH - History History Provided By: Medical Record, [employer] Supervisor / EMT - Medical / Surgical Hx Neg / Unobtainable Medical Problems Denied: Unable to Obtain Surgical History: Unable to Obtain - Medical History Medical History: Medical History (Last Reviewed 08/03/18 @ 02:00 by Daniel Sandoval MD) Obstructive uropathy (Acute) Bipolar disorder (Acute) Opioid dependence (Acute) Neuropathy (Acute) Diabetes (Acute) Heroin abuse - Surgical History Surgical History: Surgical History (Last Reviewed 08/03/18 @ 02:00 by Daniel Sandoval MD) History of nephrostomy (Acute) History of cholecystectomy (Acute) H/O skin graft (Acute) H/O Spinal surgery (Acute) - Family History Family History: Family History (Last Reviewed 08/03/18 @ 02:00 by Daniel Sandoval MD) Father History of cancer Mother History of cancer Sister History of cancer Brother History of diabetes mellitus - Social History I have reviewed the patient's Social History: Yes - Tobacco History Second Hand Smoke Exposure: No Smoking Status: Unknown if ever smoked - Alcohol History How Often Do You Have a Drink Containing Alcohol: Unable to Obtain - Substance Use History Substance History: No History of Abuse - Travel History Recent Travel in the [place] Within the Last 8 Weeks: No Recent Travel Out of the Country Within the Last 8 Weeks: No - Immunization History Tetanus Immunization: <5 Years Tetanus Immunization Year if Known: 2014 Medications and Allergies Active Medications: Active Medications Chlorhexidine Gluconate (Chlorhexidine 2% Cloth) 3 pack TOPICAL DAILY@0400 [facility] Stop: 08/08/18 03:59 Chlorhexidine Gluconate (Chlorhexidine 2% Cloth) 3 pack TOPICAL DAILY@0400 PRN PRN Reason: Extra cloth needed Stop: 08/08/18 03:59 Sodium Chloride (Ns Inj) 1,000 mls @ 125 mls/hr IV.CONT .Q8H [facility] Last Admin: 08/02/18 18:56 Dose: 125 mls/hr Norepinephrine Bitartrate (Levophed-Dextrose 4 Mg/250 Ml Drip) 4 mg in 250 mls @ 7.5 mls/hr IV.SIG TITRATE PRN; Protocol PRN Reason: Per Protocol Sodium Chloride (Ns Flush) 2 ml IV.FLUSH PRN PRN PRN Reason: FLUSH AFTER USING IV ACCESS Last Admin: 08/02/18 19:17 Dose: 2 ml Terbutaline Sulfate (Brethine Inj) 1 mg SQ UNSCH PRN PRN Reason: For Extravasation Allergies Allergy/AdvReac Type Severity Reaction Status Date / Time ketorolac Allergy Severe Anaphylaxis Verified 06/28/18 18:57 Home Medications Medication Instructions Recorded Confirmed Type alprazolam [Xanax] 2 mg PO QID 02/16/18 06/28/18 History gabapentin [Neurontin] 1,600 - 3,200 mg PO BID 02/16/18 06/28/18 History insulin glargine [Lantus Solostar 25 - 30 unit SUB-Q DAILY 02/16/18 06/28/18 History U-100 Insulin] insulin lispro [Humalog U-100 1 sliding scale dose SUB-Q UD 02/16/18 06/28/18 History Insulin] quetiapine [Seroquel] 325 mg PO BID 02/16/18 06/28/18 History apixaban [Eliquis] 5 mg PO BID 03/10/18 06/28/18 History carbamazepine [Epitol] 200 mg PO BID 03/10/18 06/28/18 History cyclobenzaprine 10 mg PO BID 03/10/18 06/28/18 History ondansetron HCl [Zofran] 4 mg PO QID PRN 03/10/18 06/28/18 History prazosin 2 mg PO BID 03/10/18 06/28/18 History ropinirole [Requip] 2 mg PO HS 03/10/18 06/28/18 History hydromorphone [Dilaudid] 4 mg PO Q6H 06/03/18 06/28/18 History celecoxib 200 mg DAILY 06/28/18 06/28/18 History meloxicam 7.5 mg PO BID 06/28/18 06/28/18 History promethazine 25 mg PO Q6H PRN 06/28/18 06/28/18 History Results - Labs CBC & Chem 7: 08/02/18 19:20 08/02/18 19:20 Labs: Short CBC 08/02/18 Range/Units 19:20 WBC 9.2 (4.0-11.0) th/mm3 Hgb 7.3 L (11.6-15.3) gm/dL Hct 23.7 L (35.0-46.0) % Plt Count 358 (150-450) th/mm3 BMP 08/02/18 19:20 Sodium 131 L Potassium 5.1 Chloride 100 Carbon Dioxide 14.5 L BUN 30 H Creatinine 1.85 H Calcium 7.8 L Cardiac Enzymes 08/02/18 Range/Units 19:20 Troponin I 0.04 (0.02-0.05) ng/mL Liver Function 08/02/18 Range/Units 19:20 Total Bilirubin 0.3 (0.2-1.0) mg/dL AST 185 H (15-37) U/L ALT 59 H (10-53) U/L Alkaline Phosphatase 324 H (45-117) U/L Albumin 3.1 L (3.4-5.0) g/dL Urine 08/02/18 Range/Units 19:20 Urine Color Yellow (Yellw/Straw) Urine Clarity Hazy H (Clear) Urine pH 6.0 (5.0-8.5) Ur Specific [place] 1.011 (1.002-1.035) Urine Protein 100 H (Neg-Trace) mg/dL Urine Glucose (UA) 500 or greater (Negative) mg/dL - Imaging Impressions Chest X-Ray 08/02/18 19:14 CONCLUSION: ET tube is at the level of the valerie and needs to be withdrawn [address] 08/02/18 19:14 CONCLUSION: 1. Findings suggest diffuse cerebral edema with loss of delineation of potter- white matter differentiation and diffuse sulcal effacement. No evidence of mass effect or acute blood products. 2. Ethmoid and sphenoid sinus disease. . Exam Vital signs: Vital Signs 08/02/18 18:42 08/02/18 18:57 08/02/18 19:28 Temperature 36.6 C Pulse Rate 90 101 H Respiratory Rate 14 14 15 Blood Pressure 74/39 L 151/81 H Pulse Oximetry 100 96 98 08/02/18 20:00 08/02/18 20:09 08/02/18 20:37 Temperature Pulse Rate 101 H Respiratory Rate 14 Blood Pressure 158/78 H Pulse Oximetry 99 98 100 Intake & Output 08/02/18 08/02/18 08/03/18 06:59 18:59 06:59 Weight 70.307 kg 67 kg Other: Weight On Admission 67 kg Narrative: GENERAL: Middle-age female, lying in bed, unresponsive HEENT: Normocephalic. Atraumatic. Pupils 6 mm, equal, round, nonreactive and fixed. Mucous membranes are moist NECK: Trachea is midline. There is no JVD. CHEST: Intubated. PRVC. Does not over breathe the ventilator. CARDIOVASCULAR: Tachycardic rate, regular rhythm. Systolic blood pressure 220 mmHg on my initial evaluation. ABDOMEN: Soft, nontender, nondistended. No guarding. MUSCULOSKELETAL: Pulses 2+. No peripheral edema. NEUROLOGICAL: RASS -5. GCS 3. Absent cough. Absent gag. Absent corneals. Absent oculocephalic reflex. Absent oculovestibular reflex. Muscular strength 0/5 in all 4 extremities to any painful stimuli. No movement at all in any extremity. Pupils as above. Caprini VTE Risk Assessment Caprini VTE Risk Assessment: Moderate/High Risk (score >= 2) Caprini Risk Assessment Model: Point Value = 1 Point Value = 2 Point Value = 3 Point Value = 5 Age 41-60 Minor surgery BMI > 25 kg/m2 Swollen legs Varicose veins or History of unexplained or recurrent spontaneous Oral contraceptives or hormone replacement Sepsis (< 1 month) Serious lung disease, including pneumonia (< 1 month) Abnormal pulmonary function Acute myocardial infarction Congestive heart failure (< 1 month) History of inflammatory bowel disease Medical patient at bed rest Age 61-74 Arthroscopic surgery Major open surgery (> 45 min) Laparoscopic surgery (> 45 min) Malignancy Confined to bed (> 72 hours) Immobilizing plaster cast Central venous access Age >= 75 History of VTE Family history of VTE Factor V Leiden Prothrombin [id number] Lupus anticoagulant Anticardiolipin antibodies Elevated serum homocysteine Heparin-induced thrombocytopenia Other congenital or acquired thrombophilia Stroke (< 1 month) Elective arthroplasty Hip, pelvis, or leg fracture Acute spinal cord injury (< 1 month) Prophylaxis Regimen: Total Risk Factor Score Risk Level Prophylaxis Regimen 0-1 Low Early ambulation 2 Moderate Order ONE of the following: *Sequential Compression Device (SCD) *Heparin 5000 units SQ BID 3-4 Higher Order ONE of the following medications: *Heparin 5000 units SQ TID *Enoxaparin/Lovenox 40 mg SQ daily (WT < 150 kg, CrCl > 30 mL/min) *Enoxaparin/Lovenox 30 mg SQ daily (WT < 150 kg, CrCl > 10-29 mL/min) *Enoxaparin/Lovenox 30 mg SQ BID (WT < 150 kg, CrCl > 30 mL/min) AND/OR *Sequential Compression Device (SCD) 5 or more Highest Order ONE of the following medications: *Heparin 5000 units SQ TID (Preferred with Epidurals) *Enoxaparin/Lovenox 40 mg SQ daily (WT < 150 kg, CrCl > 30 mL/min) *Enoxaparin/Lovenox 30 mg SQ daily (WT < 150 kg, CrCl > 10-29 mL/min) *Enoxaparin/Lovenox 30 mg SQ BID (WT < 150 kg, CrCl > 30 mL/min) AND *Sequential Compression Device (SCD) Assessment and Plan - Assessment and Plan Plan: Assessment: 47-year-old female status post out of hospital cardiac arrest with prolonged downtime now 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 Very critically ill. We will not pursue therapeutic hypothermia given length of out of hospital cardiac arrest. We will continue supportive care. Plan by systems: Neurologic: Toxic encephalopathy Hypoxic ischemic encephalopathy Polysubstance abuse Cocaine abuse Malignant cerebral edema Send confirmatory urine tox screen Send Tylenol, salicylate, alcohol levels Frequent neurochecks Avoid any sedation May likely require formal brain testing within the next 24-48 hours Watch for withdrawal symptoms Respiratory: Acute hypoxic hypercarbic respiratory failure Vent bundle Head of bed elevated Wean FiO2 for goal SPO2 greater than 90% Nebs No weaning of mechanical ventilation until neurologic exam improves Cardiovascular: Sinus tachycardia Hypertensive emergency Out of hospital asystolic cardiac arrest Nicardipine for goal systolic blood pressure less than 160 Normal saline maintenance fluids at 84 cc an hour Renal: Acute kidney injury -- Strict I/Os Daily BMP FEN/GI: Acute liver injury Acute intravascular volume depletion Send hepatitis panel Send GGT Liver injury may be combination of chronic substance abuse with component of shock liver from cardiac arrest Daily CMP, magnesium, phosphorus ICU electrolyte protocol Heme/ID: No infectious etiology suspected this time Daily CBC Endocrine: Hyperglycemia of critical illness -- SSI, medium scale, every 6 Prophylaxis: GI Prophylaxis IV Pepcid DVT Prophylaxis -- SCDs Lovenox Lines: 08/02 IJ triple-lumen catheter 08/02 right radial arterial line Muhammad Dispo: Admit ICU. Critically ill. This patient remains critically ill with one or more organ systems which are or may become a threat to life. I have spent in excess of 51 minutes discontinuously in the care and management of this patient. This time is exclusive of procedures, and includes, but is not limited to, evaluation of the patient, review of the medical record, discussions with family, consultants, nursing staff, or respiratory therapy, and documentation in the medical record.
[2018-08-02] MEDS: Labetalol HCl Inj 100 MG/20 ML Vial IV.PUSH PRN ×5 (21:45→23:48)
[2018-08-02] MEDS ORDERED: Sodium Chloride 0.9% 2 ML Flush PRN IV.FLUSH (21:56)
[2018-08-02 22:03] LABS: Gamma Glutamyl Transpeptidase 462 U/L (5-55)
--- NOTE | 2018-08-02 22:13 | P.PCN ---
Date of procedure: 08/02/18 Procedure: Procedure: Arterial Line Placement Right radial arterial line Diagnosis: Out of hospital cardiac arrest Indications: Need for serial arterial blood gas sampling Consent: Emergent Description of the Procedure: The right wrist was prepped and draped sterilely. The pulse was located and a needle was advanced into the artery. A 20 gauge, 12 cm catheter was advanced into the artery using a modified Seldinger technique. The catheter was sutured to the skin and a sterile dressing was applied. The catheter was connected to a pressure transducer and an arterial waveform was noted. There were no immediate complications noted. There was minimal EBL. I personally performed the procedure.
[2018-08-02] MEDS: Enoxaparin Inj 30 MG/0.3 ML Syringe SQ SCH (22:15)
[2018-08-02 23:35] LABS: Amphetamine Urine With Conf Neg (Neg); Benzodiazepine Urine With Conf Neg (Neg); Opiates Urine With Conf Neg (Neg)
[2018-08-02 23:46] LABS: Cannabinoid Urine With Conf Neg (Neg); Cocaine Urine With Conf Pos (Neg)
[2018-08-02 23:47] LABS: Hepatitis A IgM Antibody Nonreactive (Nonreactive); Hepatitits B Surface Antigen Nonreactive (Nonreactive)
[2018-08-02] MEDS: Insulin NovoLIN Regular Correctional Sugar Inj SQ SCH (23:47)
[2018-08-03] MEDS: Labetalol HCl Inj 100 MG/20 ML Vial IV.PUSH PRN ×7 (00:08→02:33)
[2018-08-03] MEDS: niCARdipine Inj 25 MG in Sodium Chlor 0.9% Inj 240 ML IV.CONT PRN ×2 (03:00→07:20)
[2018-08-03] MEDS: Sod Chloride 0.9% Inj 1,000 ML IV.CONT SCH ×3 (03:00→20:11)
[2018-08-03] MEDS: Chlorhexidine Gluconate 2% 1 Pack (2 Cloths) TOPICAL SCH (03:01)
[2018-08-03] MEDS: Acetaminophen 325 MG Tablet PO PRN ×2 (03:34→10:33)
[2018-08-03] MEDS ORDERED: Chlorhexidine Gluconate 2% 1 Pack (2 Cloths) TOPICAL PRN ×2 (04:00)
[2018-08-03] MEDS ORDERED: Chlorhexidine Gluconate 2% 1 Pack (2 Cloths) TOPICAL SCH (04:00)
[2018-08-03 04:45] LABS: ABG Base Excess -1.5 mmol/L (-2-2); ABG PCO2 25 mmHg (38-42); ABG PO2 175 mmHG (61-120)
--- NOTE | 2018-08-03 04:46 | XR ---
EXAM DATE: 08/03/2018 4:10 AM EST AGE/SEX: 47 years / Female INDICATIONS: Shortness of breath, possible pulmonary disease. CLINICAL DATA: This is the patient's subsequent encounter. Patient reports that signs and symptoms h ave been present for 2 days and indicates a pain score of Nonresponsive. MEDICAL/SURGICAL HISTORY: Diabetes. Cholecystectomy. Tubal ligation. Nephrectomy. COMPARISON: [facility], CHEST 1V SINGLE AP, 08/02/2018. . FINDINGS: Stable ETT, NGT and left IJ central line. Lungs are clear. Cardiomediastinal contours are within norm al limits. Remainder of the exam is unchanged. CONCLUSION: 1. Stable tubes and lines, as above. 2. Lungs are clear. Electronically signed by: Boris Awan MD Board Certified Radiologist 08/03/2018 4:45 AM EST
[2018-08-03] MEDS: Insulin NovoLIN Regular Correctional Sugar Inj SQ SCH ×5 (06:27→21:56)
[2018-08-03 07:03] LABS: INR 1.1 Ratio; Prothrombin Time 10.8 sec (9.8-11.6)
[2018-08-03 07:09] LABS: Albumin 3.1 g/dL (3.4-5.0); Calcium 7.2 mg/dL (8.5-10.1); Carbon Dioxide 22.9 meq/L (21.0-32.0); Phosphorus 2.2 mg/dL (2.5-4.9); Potassium 3.5 meq/L (3.5-5.1)
[2018-08-03 07:10] LABS: Total Protein 6.9 g/dL (6.4-8.2)
[2018-08-03] MEDS ORDERED: Sodium Glycerophosphate Inj 30 MMOL in Sodium Chlor 0.9% Inj 250 ML IV.SIG PRN (07:45)
[2018-08-03 08:06] LABS: ABG Base Excess -0.4 mmol/L (-2-2); ABG PCO2 27 mmHg (38-42); ABG PO2 159 mmHG (61-120)
[2018-08-03 08:07] LABS: Baso % (Auto) 0.1 % (0.0-2.0); Eos % (Auto) 0.1 % (0.0-4.0); Hematocrit 29.7 % (35.0-46.0); Hemoglobin 9.9 gm/dL (11.6-15.3); Lymph % (Auto) 5.6 % (9.0-44.0); Mean Corpuscular HGB Conc 33.3 % (32.0-36.0); Mean Corpuscular Hemoglobin 30.8 pg (27.0-34.0); Mean Corpuscular Volume 92.5 fL (80.0-100.0); Mean Platelet Volume 7.6 fL (7.0-11.0); Mono # (Auto) 0.7 th/mm3 (0.0-0.9); Neut # (Auto) 15.4 th/mm3 (1.8-7.7); Neut % (Auto) 90.2 % (16.0-70.0); Platelet Count 388 th/mm3 (150-450); Red Blood Count 3.22 mil/mm3 (4.00-5.30); Red Cell Distribution Width 17.1 % (11.6-17.2); White Blood Count 17.1 th/mm3 (4.0-11.0)
[2018-08-03] MEDS: Famotidine PF Inj 20 MG/2 ML Vial IV.PUSH SCH ×2 (08:52→20:17)
[2018-08-03] MEDS: Sodium Chloride 0.9% 2 ML Flush BID IV.FLUSH SCH ×2 (08:52→20:17)
[2018-08-03 09:23] LABS: Lymphocytes 5 % (9-44)
[2018-08-03 09:24] LABS: Platelet Estimate Normal (Normal); Platelet Morphology Normal (Normal)
--- NOTE | 2018-08-03 10:16 | P.CONPAL ---
Consult Service: Palliative Care Requesting Physician: Mi Brewer Reason for Consult: a. To assist with evaluation and management of symptoms including: dyspnea b. To assist medical decision maker(s) with: better understanding of current medical conditions; weighing benefits/burdens of medical treatment options; making medical treatment decisions. Primary Care Provider: Sukumar Logan History of Present Illness History of Present Illness: Ms. Schmid is a 47-year-old female with a known history of bipolar disorder poly- substance abuse (opioids, heroin, cocaine) who presented to [facility] ED on 2018 as an out of hospital cardiac arrest. Patient's reported he saw his walk into the bathroom and then found her 30 minutes later in a prone position on their bed. He stated she was not breathing, and he called 911. Upon EMS arrival, the patient was found unresponsive in asystole. Patient was intubated and cardiopulmonary resuscitation was initiated at the scene with ROSC. Patient arrives at the ED with a persistently poor neurological exam. Diagnostic data: * Vital signs: Pulse 90, respirations 14, BP 74/39, oxygen saturation 100% on 100% FiO2 via Ambu bag, oral temperature 98.0 * WBC: 9.2, hemoglobin 7.3, hematocrit 23.7, platelets 358, neutrophils 76.3% * PT: 10.7, INR 1.1, APTT 29.2 * Sodium: 131, potassium 5.1, chloride 100, carbon dioxide 14.5, glucose 410, calcium 7.8, magnesium 2.2 * BUN: 30, creatinine 1.85, GFR 29 * Lactic acid: 8.0 * GGT: 462 * Total bilirubin: 0.3, AST 185, ALT 59, alkaline phosphatase 324 * Troponin: 0.04 * Total protein: 6.7, albumin 3.1 * Urinalysis consistent with UTI; urine culture pending * Urine toxicology screening + cocaine * CT head suggesting diffuse cerebral edema with loss of delineation of potter- white matter differentiation and diffuse sulcal effacement. No evidence of mass -effect or acute blood products. Patient has received no sedating or paralytic medications in the prehospital setting, emergency department or in the intensive care unit. Her urine drug screen was positive for cocaine. On evaluation, the patient's pupils are fixed and dilated. She has no corneal reflex; no cough or gag. GCS of 3. Neurology was consulted. Dr. Hernández evaluated the patient with suspected severe anoxic encephalopathy. He found no evidence for any brainstem reflexes on exam. CT head consistent with diffuse cerebral edema. Palliative care met with the patient's ; dual visit with Devi Cabrera LCSW. Patient's was appropriately tearful during our conversation stating his had a long history of addiction; and he knew this was going to happen one day. Patient's verbalizes understanding that his will not likely survive this hospitalization and may proceed to brain . Patient has 3 adult children (Barbie, Garret and Marianna). One daughter is currently incarcerated; Patient's other children are attempting to make arrangements to get to [place] within the next 24-48. [facility] has been notified. Function/Cognitive Trajectory: Patient has a history of polysubstance abuse with previous cardiac arrest. Review of Systems unobtainable due to endotracheal tube PMFSH - History History Provided By: Medical Record, Band Presser / EMT - Medical / Surgical Hx Neg / Unobtainable Medical Problems Denied: Unable to Obtain - Medical History Medical History: Medical History (Last Updated 08/03/18 @ 09:41 by ADITYA Garcia) Bipolar disorder (Acute) Opioid dependence (Acute) Neuropathy (Acute) Diabetes (Acute) Heroin abuse History of DVT (deep vein thrombosis) History of cardiac arrest History of diabetic gastroparesis History of necrotizing fasciitis History of osteomyelitis Posttraumatic stress disorder Obstructive uropathy - Surgical History Surgical History: Surgical History (Last Updated 08/03/18 @ 09:40 by ADITYA Garcia) H/O skin graft (Acute) H/O Spinal surgery (Acute) History of ankle surgery History of nephrostomy - Family History Family History: Family History (Last Updated 08/03/18 @ 09:39 by ADITYA Garcia) Father History of cancer Mother History of cancer Sister History of cancer Brother History of diabetes mellitus - Social History I have reviewed the patient's Social History: Yes - Tobacco History Second Hand Smoke Exposure: No Smoking Status: Unknown if ever smoked - Alcohol History How Often Do You Have a Drink Containing Alcohol: Unable to Obtain - Substance Use History Substance History: Active Abuse - Substance Use Type Crack/Cocaine Status: Active Heroin Status: Active Route Used: Intravenously - Travel History Recent Travel in the [facility] Within the Last 8 Weeks: No Recent Travel Out of the Country Within the Last 8 Weeks: No - Immunization History Tetanus Immunization: <5 Years Tetanus Immunization Year if Known: 2014 Medications and Allergies Active Medications: Active Medications Acetaminophen (Tylenol) 650 mg PO Q6H PRN PRN Reason: TEMPERATURE > 101 F Last Admin: 08/03/18 03:34 Dose: 650 mg Albuterol (Duoneb Neb (Prn)) 1 ampul NEB Q2HR NEB PRN PRN Reason: WHEEZING Albuterol (Duoneb Neb (Doris)) 1 ampul NEB Q4HR NEB DORIS Last Admin: 08/03/18 07:36 Dose: 1 ampul Chlorhexidine Gluconate (Chlorhexidine 2% Cloth) 3 pack TOPICAL DAILY@0400 DORIS Stop: 08/08/18 03:59 Last Admin: 08/03/18 03:01 Dose: 3 pack Chlorhexidine Gluconate (Chlorhexidine 2% Cloth) 3 pack TOPICAL DAILY@0400 PRN PRN Reason: Extra cloth needed Stop: 08/08/18 03:59 Dextrose (D50w Vial) 50 ml IV.PUSH UNSCH PRN PRN Reason: PER HYPOGLYCEMIA PROTOCOL Enoxaparin Sodium (Lovenox Inj) 30 mg SQ Q24H [facility] Last Admin: 08/02/18 22:15 Dose: 30 mg Famotidine (Pepcid Pf Inj) 20 mg IV.PUSH Q12HR [facility] Last Admin: 08/03/18 08:52 Dose: 20 mg Glucagon (Glucagon Inj) 1 mg OTHER PRN PRN PRN Reason: for Hypoglycemia Protocol Sodium Chloride (Ns Inj) 1,000 mls @ 125 mls/hr IV.CONT .Q8H [facility] Last Admin: 08/03/18 03:00 Dose: 125 mls/hr Norepinephrine Bitartrate (Levophed-Dextrose 4 Mg/250 Ml Drip) 4 mg in 250 mls @ 7.5 mls/hr IV.SIG TITRATE PRN; Protocol PRN Reason: Per Protocol Magnesium Sulfate 4 gm/ Sodium (Chloride) 100 mls @ 50 mls/hr IV.SIG UNSCH PRN PRN Reason: For Magnesium 0.9 - 1.1 mg/dL Magnesium Sulfate 2 gm/ Sodium (Chloride) 100 mls @ 50 mls/hr IV.SIG UNSCH PRN PRN Reason: For Magnesium 1.2 - 1.6 mg/dL Nicardipine HCl 25 mg/ Sodium (Chloride) 250 mls @ 50 mls/hr IV.CONT TITRATE PRN; Protocol PRN Reason: Per Protocol Last Admin: 08/03/18 07:20 Dose: 5 mg/hr, 50 mls/hr Potassium Chloride (Kcl 40 Meq Premix Inj) 40 meq in 100 mls @ 25 mls/hr IV.SIG Q2H PRN PRN Reason: For Potassium 2.8 - 3.2 mEq/L Potassium Chloride (Kcl 20 Meq Premix Inj) 20 meq in 100 mls @ 50 mls/hr IV.SIG Q2H PRN PRN Reason: For Potassium 3.3 - 3.5 mEq/L Potassium Chloride (Kcl 40 Meq Premix Inj) 40 meq in 100 mls @ 25 mls/hr IV.SIG UNSCH PRN PRN Reason: For Potassium 3.3 - 3.5 mEq/L Potassium Chloride (Kcl 20 Meq Premix Inj) 20 meq in 100 mls @ 50 mls/hr IV.SIG Q2H PRN PRN Reason: For Potassium 2.8 - 3.2 mEq/L Potassium Phosphate 30 mmol/ (Sodium Chloride) 260 mls @ 42 mls/hr IV.SIG UNSCH PRN PRN Reason: SEE LABEL COMMENTS Sodium Glycerophosphate 30 (mmol/ Sodium Chloride) 280 mls @ 42 mls/hr IV.SIG UNSCH PRN PRN Reason: For Phosphorus < 2.5 mg/dL Last Admin: 08/03/18 08:53 Dose: 42 mls/hr Insulin Human Regular (Novolin R Correctional Sugar Inj) 0 units SQ Q6HR [facility]; Protocol Last Admin: 08/03/18 06:27 Dose: Not Given Labetalol HCl (Trandate Inj) 10 mg IV.PUSH Q20M PRN PRN Reason: sbp > 160 or DBP > 95 Last Admin: 08/03/18 02:33 Dose: 10 mg Magnesium Oxide (Mag-Ox) 800 mg PO UNSCH PRN PRN Reason: For Magnesium 1.2 - 1.6 mg/dL Ondansetron HCl (Zofran Inj) 4 mg IV.PUSH Q6H PRN PRN Reason: NAUSEA OR VOMITING Potassium Chloride (Kcl Liq) 40 meq PO UNSCH PRN PRN Reason: Potassium level 3.3-3.5 mEq/L Potassium Chloride (Kcl Liq) 40 meq PO UNSCH PRN PRN Reason: Potassium level 3.3-3.5 mEq/L Potassium Phosphate (K-Phos Original) 2,000 mg PO Q4H PRN PRN Reason: Phosphorus Less Than 2.5 mg/dL Potassium Phosphate (K-Phos Original) 2,000 mg PO UNSCH PRN PRN Reason: SEE LABEL COMMENTS Sodium Chloride (Ns Flush) 2 ml IV.FLUSH BID DORIS Last Admin: 08/03/18 08:52 Dose: 2 ml Sodium Chloride (Ns Flush) 2 ml IV.FLUSH PRN PRN PRN Reason: FLUSH AFTER USING IV ACCESS Last Admin: 08/03/18 08:52 Dose: 2 ml Terbutaline Sulfate (Brethine Inj) 1 mg SQ UNSCH PRN PRN Reason: For Extravasation Allergies Allergy/AdvReac Type Severity Reaction Status Date / Time ketorolac Allergy Severe Anaphylaxis Verified 06/28/18 18:57 Home Medications Medication Instructions Recorded Confirmed Type alprazolam [Xanax] 2 mg PO QID 02/16/18 06/28/18 History gabapentin [Neurontin] 1,600 - 3,200 mg PO BID 02/16/18 06/28/18 History insulin glargine [Lantus Solostar 25 - 30 unit SUB-Q DAILY 02/16/18 06/28/18 History U-100 Insulin] insulin lispro [Humalog U-100 1 sliding scale dose SUB-Q UD 02/16/18 06/28/18 History Insulin] quetiapine [Seroquel] 325 mg PO BID 02/16/18 06/28/18 History apixaban [Eliquis] 5 mg PO BID 03/10/18 06/28/18 History carbamazepine [Epitol] 200 mg PO BID 03/10/18 06/28/18 History cyclobenzaprine 10 mg PO BID 03/10/18 06/28/18 History ondansetron HCl [Zofran] 4 mg PO QID PRN 03/10/18 06/28/18 History prazosin 2 mg PO BID 03/10/18 06/28/18 History ropinirole [Requip] 2 mg PO HS 03/10/18 06/28/18 History hydromorphone [Dilaudid] 4 mg PO Q6H 06/03/18 06/28/18 History celecoxib 200 mg DAILY 06/28/18 06/28/18 History meloxicam 7.5 mg PO BID 06/28/18 06/28/18 History promethazine 25 mg PO Q6H PRN 06/28/18 06/28/18 History Advance Directives Documented care wishes: No known written advanced directives were completed. Today's verbally stated goals: Patient is currently unresponsive, intubated on mechanical ventilation. She is unable to participate in establishment of medical treatment goals. Family/friends goals: Patient has is hopeful the patient will survive until her children arrived to say goodbye but does not want her suffering to be prolonged unnecessarily. Aggressive goals up to the point of cardiopulmonary resuscitation. Patient is an ALTERNATE CODE. Ethical and Legal Issues: No known ethical or legal issues at this time. Physical Exam Vital Signs: Vital Signs - 24 hr 08/02/18 18:42 08/02/18 18:57 08/02/18 19:28 Temperature 98 F Pulse Rate 90 101 H Respiratory Rate 14 14 15 Blood Pressure 74/39 L 151/81 H Pulse Oximetry 100 96 98 08/02/18 20:00 08/02/18 20:09 08/02/18 20:37 Temperature Pulse Rate 101 H Respiratory Rate 14 Blood Pressure 158/78 H Pulse Oximetry 99 98 100 08/02/18 21:00 08/02/18 22:00 08/02/18 23:00 Temperature 93.2 F L 93.8 F L 94.2 F L Pulse Rate 89 82 87 Respiratory Rate 16 16 16 Blood Pressure Pulse Oximetry 100 100 08/03/18 00:00 08/03/18 00:02 08/03/18 00:05 Temperature 96.8 F L Pulse Rate 83 82 Respiratory Rate 16 22 23 Blood Pressure Pulse Oximetry 100 100 08/03/18 01:00 08/03/18 02:00 08/03/18 02:15 Temperature 98.2 F 99.9 F H 100.6 F H Pulse Rate 77 78 77 Respiratory Rate 22 22 22 Blood Pressure Pulse Oximetry 100 100 100 08/03/18 03:04 08/03/18 03:06 08/03/18 03:15 Temperature 102.7 F H 102.7 F H 102.9 F H Pulse Rate 78 77 79 Respiratory Rate 22 19 22 Blood Pressure 126/58 L Pulse Oximetry 100 100 100 08/03/18 03:28 08/03/18 03:30 08/03/18 03:45 Temperature 103.5 F H 103.8 F H Pulse Rate 82 83 85 Respiratory Rate 24 Blood Pressure Pulse Oximetry 100 100 100 08/03/18 04:00 08/03/18 04:15 08/03/18 04:30 Temperature 104.0 F H 104.4 F H 104.4 F H Pulse Rate 90 95 H 103 H Respiratory Rate Blood Pressure Pulse Oximetry 100 100 100 08/03/18 04:45 08/03/18 05:00 08/03/18 05:15 Temperature 104.4 F H 104.4 F H 104.1 F H Pulse Rate 107 H 109 H 111 H Respiratory Rate Blood Pressure Pulse Oximetry 100 100 100 08/03/18 05:30 08/03/18 05:45 08/03/18 06:00 Temperature 104.0 F H 103.9 F H Pulse Rate 112 H 113 H 114 H Respiratory Rate 18 Blood Pressure Pulse Oximetry 100 100 100 08/03/18 06:13 08/03/18 07:00 08/03/18 07:18 Temperature 103.9 F H Pulse Rate 113 H 113 H Respiratory Rate 19 21 20 Blood Pressure 126/60 Pulse Oximetry 100 99 100 08/03/18 07:37 08/03/18 08:00 08/03/18 08:51 Temperature 104.5 F H Pulse Rate 114 H 117 H 121 H Respiratory Rate 19 23 18 Blood Pressure 106/57 L Pulse Oximetry 100 100 08/03/18 09:00 Temperature Pulse Rate 121 H Respiratory Rate 17 Blood Pressure Pulse Oximetry 100 I&O: Intake & Output 08/01/18 08/02/18 08/03/18 08/04/18 06:59 06:59 06:59 06:59 Intake Total 900 / 900 250 / 250 Output Total 1600 / 1600 Balance -700 / -700 250 / 250 Weight 70.6 kg Physical Exam: CONSTITUTIONAL/GENERAL: This is female patient, unsedated and intubated on mechanical ventilation. TUBES/LINES/DRAINS: ET tube, OGT, PIV, arterial line SKIN: No generalized rash. no wounds seen anteriorly. Skin temperature appropriate. Not diaphoretic. HEAD: Atraumatic. Normocephalic. EYES: Pupils 6 mm, equal, round, nonreactive and fixed. No scleral icterus. No injection or drainage. ENT: Nose without bleeding or purulent drainage. Mucous membranes moist and pink NECK: Orally intubated CARDIOVASCULAR: Intermittently tachycardic. Hypotensive. RESPIRATORY/CHEST: Intubated on mechanical ventilation. Clear to auscultation. Breath sounds equal bilaterally. GASTROINTESTINAL: Abdomen soft, non-tender, nondistended. No guarding. Bowel sounds present. GENITOURINARY: Without palpable bladder distension. Muhammad catheter in place. MUSCULOSKELETAL: Extremities without clubbing, cyanosis, or edema. No joint tenderness or effusion noted. No calf tenderness. No mottling or clubbing. NEUROLOGICAL: Unresponsive. No corneal reflex. No cough/gag. Patient does not withdraw to noxious stimuli. PSYCHIATRIC: Unable to assess given current clinical condition. Diagnostic Tests Laboratory: Laboratory Results - last 72 hr 08/02/18 08/02/18 08/02/18 19:20 19:20 19:20 WBC 9.2 RBC 2.38 L Hgb 7.3 L Hct 23.7 L MCV 99.3 MCH 30.8 MCHC 31.0 L RDW 17.2 Plt Count 358 MPV 8.1 Prelim Diff (Auto) Neut % (Auto) 76.3 H Lymph % (Auto) 19.1 [place] % (Auto) 2.6 Eos % (Auto) 1.4 Baso % (Auto) 0.6 Neut # (Auto) 7.0 Lymph # (Auto) 1.8 [place] # (Auto) 0.2 Eos # (Auto) 0.1 Baso # (Auto) 0.1 WBC Differential . Seg Neuts % (Manual) Band Neuts % (Manual) Lymphocytes % (Manual) Abs Neuts (Manual) Differential Comment Auto diff final Platelet Estimate Platelet Morphology PT 10.7 INR 1.1 APTT 29.2 Puncture Site Patient Temperature O2 Saturation ABG pH ABG pCO2 ABG pO2 ABG HCO3 ABG O2 Content ABG Base Excess ABG Methemoglobin Hemoglobin Carboxyhemoglobin O2 Delivery Device Vent Setting Inspired O2 Critical Value Sodium 131 L Potassium 5.1 Chloride 100 Carbon Dioxide 14.5 L Anion Gap 17 H BUN 30 H Creatinine 1.85 H Estimated GFR 29 L POC Glucose Random Glucose 410 H Osmolality Lactic Acid Calcium 7.8 L Calcium Adj for Albumin Phosphorus Magnesium 2.2 Total Bilirubin 0.3 GGT AST 185 H ALT 59 H Alkaline Phosphatase 324 H Troponin I 0.04 Total Protein 6.7 Albumin 3.1 L Urine Color Urine Clarity Urine pH Ur Specific [place] Urine Protein Urine Glucose (UA) Urine Ketones Urine Occult Blood Urine Nitrate Urine Bilirubin Urine Urobilinogen Ur Leukocyte Esterase Urine RBC Urine WBC Ur Squamous Epith Cells Micro UA Comment Ur Microscopic Review Urine Culture Comments Urine Osmolality Ur Random Sodium Nasal Screen MRSA (PCR) Salicylates Urine Opiates Screen Acetaminophen Ur Barbiturates Screen Ur Amphetamine Screen Ur Amphetamines Screen U Benzodiazepines Scrn Urine Cocaine Screen U Cannabinoids Screen Serum Alcohol Hepatitis A IgM Ab Hep Bs Antigen Hep B Core IgM Ab Hep C IgG Ab 08/02/18 08/02/18 08/02/18 19:20 19:20 19:20 WBC RBC Hgb Hct MCV MCH MCHC RDW Plt Count MPV Prelim Diff (Auto) Neut % (Auto) Lymph % (Auto) [place] % (Auto) Eos % (Auto) Baso % (Auto) Neut # (Auto) Lymph # (Auto) [place] # (Auto) Eos # (Auto) Baso # (Auto) WBC Differential Seg Neuts % (Manual) Band Neuts % (Manual) Lymphocytes % (Manual) Abs Neuts (Manual) Differential Comment Platelet Estimate Platelet Morphology PT INR APTT Puncture Site Patient Temperature O2 Saturation ABG pH ABG pCO2 ABG pO2 ABG HCO3 ABG O2 Content ABG Base Excess ABG Methemoglobin Hemoglobin Carboxyhemoglobin O2 Delivery Device Vent Setting Inspired O2 Critical Value Sodium Potassium Chloride Carbon Dioxide Anion Gap BUN Creatinine Estimated GFR POC Glucose Random Glucose Osmolality Lactic Acid 8.0 H* Calcium Calcium Adj for Albumin Phosphorus Magnesium Total Bilirubin GGT AST ALT Alkaline Phosphatase Troponin I Total Protein Albumin Urine Color Yellow Urine Clarity Hazy H Urine pH 6.0 Ur Specific [place] 1.011 Urine Protein 100 H Urine Glucose (UA) 500 or greater Urine Ketones Negative Urine Occult Blood Small H Urine Nitrate Negative Urine Bilirubin Negative Urine Urobilinogen Less than 2 Ur Leukocyte Esterase Negative Urine RBC 22 H Urine WBC 10 H Ur Squamous Epith Cells 1 Micro UA Comment Cath-culture ind Ur Microscopic Review Not Reportable Urine Culture Comments Cath-cult indicated Urine Osmolality Ur Random Sodium Nasal Screen MRSA (PCR) Salicylates Urine Opiates Screen Neg Acetaminophen Ur Barbiturates Screen Neg Ur Amphetamine Screen Ur Amphetamines Screen Neg U Benzodiazepines Scrn Neg Urine Cocaine Screen Pos H U Cannabinoids Screen Neg Serum Alcohol Hepatitis A IgM Ab Hep Bs Antigen Hep B Core IgM Ab Hep C IgG Ab 08/02/18 08/02/18 08/02/18 19:20 19:20 20:29 WBC RBC Hgb Hct MCV MCH MCHC RDW Plt Count MPV Prelim Diff (Auto) Neut % (Auto) Lymph % (Auto) [place] % (Auto) Eos % (Auto) Baso % (Auto) Neut # (Auto) Lymph # (Auto) [place] # (Auto) Eos # (Auto) Baso # (Auto) WBC Differential Seg Neuts % (Manual) Band Neuts % (Manual) Lymphocytes % (Manual) Abs Neuts (Manual) Differential Comment Platelet Estimate Platelet Morphology PT INR APTT Puncture Site Patient Temperature O2 Saturation ABG pH ABG pCO2 ABG pO2 ABG HCO3 ABG O2 Content ABG Base Excess ABG Methemoglobin Hemoglobin Carboxyhemoglobin O2 Delivery Device Vent Setting Inspired O2 Critical Value Sodium Potassium Chloride Carbon Dioxide Anion Gap BUN Creatinine Estimated GFR POC Glucose 373 H Random Glucose Osmolality Lactic Acid Calcium Calcium Adj for Albumin Phosphorus Magnesium Total Bilirubin GGT AST ALT Alkaline Phosphatase Troponin I Total Protein Albumin Urine Color Urine Clarity Urine pH Ur Specific [place] Urine Protein Urine Glucose (UA) Urine Ketones Urine Occult Blood Urine Nitrate Urine Bilirubin Urine Urobilinogen Ur Leukocyte Esterase Urine RBC Urine WBC Ur Squamous Epith Cells Micro UA Comment Ur Microscopic Review Urine Culture Comments Urine Osmolality Ur Random Sodium Nasal Screen MRSA (PCR) Salicylates Less than 1.7 L Urine Opiates Screen Acetaminophen Less than 2.0 L Ur Barbiturates Screen Ur Amphetamine Screen Ur Amphetamines Screen U Benzodiazepines Scrn Urine Cocaine Screen U Cannabinoids Screen Serum Alcohol 4 Hepatitis A IgM Ab Hep Bs Antigen Hep B Core IgM Ab Hep C IgG Ab 08/02/18 08/02/18 08/02/18 20:35 21:36 21:36 WBC RBC Hgb Hct MCV MCH MCHC RDW Plt Count MPV Prelim Diff (Auto) Neut % (Auto) Lymph % (Auto) [place] % (Auto) Eos % (Auto) Baso % (Auto) Neut # (Auto) Lymph # (Auto) [place] # (Auto) Eos # (Auto) Baso # (Auto) WBC Differential Seg Neuts % (Manual) Band Neuts % (Manual) Lymphocytes % (Manual) Abs Neuts (Manual) Differential Comment Platelet Estimate Platelet Morphology PT INR APTT Puncture Site Art line Patient Temperature 98.6 O2 Saturation 95 ABG pH 7.18 L* ABG pCO2 42 ABG pO2 135 H ABG HCO3 15 L* ABG O2 Content 13.2 ABG Base Excess -11.7 L ABG Methemoglobin 1.8 Hemoglobin 9.6 L Carboxyhemoglobin 0.5 O2 Delivery Device Ventilator Vent Setting Prvc / ac / Inspired O2 50 Critical Value Yes Sodium Potassium Chloride Carbon Dioxide Anion Gap BUN Creatinine Estimated GFR POC Glucose Random Glucose Osmolality 313 H Lactic Acid Calcium Calcium Adj for Albumin Phosphorus Magnesium Total Bilirubin GGT 462 H AST ALT Alkaline Phosphatase Troponin I Total Protein Albumin Urine Color Urine Clarity Urine pH Ur Specific [place] Urine Protein Urine Glucose (UA) Urine Ketones Urine Occult Blood Urine Nitrate Urine Bilirubin Urine Urobilinogen Ur Leukocyte Esterase Urine RBC Urine WBC Ur Squamous Epith Cells Micro UA Comment Ur Microscopic Review Urine Culture Comments Urine Osmolality Ur Random Sodium Nasal Screen MRSA (PCR) Salicylates Urine Opiates Screen Acetaminophen Ur Barbiturates Screen Ur Amphetamine Screen Ur Amphetamines Screen U Benzodiazepines Scrn Urine Cocaine Screen U Cannabinoids Screen Serum Alcohol Hepatitis A IgM Ab Nonreactive Hep Bs Antigen Nonreactive Hep B Core IgM Ab Nonreactive Hep C IgG Ab Nonreactive 08/02/18 08/02/18 08/02/18 21:36 22:45 22:45 WBC RBC Hgb Hct MCV MCH MCHC RDW Plt Count MPV Prelim Diff (Auto) Neut % (Auto) Lymph % (Auto) [place] % (Auto) Eos % (Auto) Baso % (Auto) Neut # (Auto) Lymph # (Auto) [place] # (Auto) Eos # (Auto) Baso # (Auto) WBC Differential Seg Neuts % (Manual) Band Neuts % (Manual) Lymphocytes % (Manual) Abs Neuts (Manual) Differential Comment Platelet Estimate Platelet Morphology PT INR APTT Puncture Site Patient Temperature O2 Saturation ABG pH ABG pCO2 ABG pO2 ABG HCO3 ABG O2 Content ABG Base Excess ABG Methemoglobin Hemoglobin Carboxyhemoglobin O2 Delivery Device Vent Setting Inspired O2 Critical Value Sodium Potassium Chloride Carbon Dioxide Anion Gap BUN Creatinine Estimated GFR POC Glucose Random Glucose Osmolality Lactic Acid 4.2 H* Calcium Calcium Adj for Albumin Phosphorus Magnesium Total Bilirubin GGT AST ALT Alkaline Phosphatase Troponin I Total Protein Albumin Urine Color Urine Clarity Urine pH Ur Specific [place] Urine Protein Urine Glucose (UA) Urine Ketones Urine Occult Blood Urine Nitrate Urine Bilirubin Urine Urobilinogen Ur Leukocyte Esterase Urine RBC Urine WBC Ur Squamous Epith Cells Micro UA Comment Ur Microscopic Review Urine Culture Comments Urine Osmolality Ur Random Sodium Nasal Screen MRSA (PCR) Not detected Salicylates Urine Opiates Screen Neg Acetaminophen Ur Barbiturates Screen Neg Ur Amphetamine Screen Neg Ur Amphetamines Screen U Benzodiazepines Scrn Neg Urine Cocaine Screen Pos H U Cannabinoids Screen Neg Serum Alcohol Hepatitis A IgM Ab Hep Bs Antigen Hep B Core IgM Ab Hep C IgG Ab 08/02/18 08/02/18 08/02/18 22:45 22:45 23:00 WBC RBC Hgb Hct MCV MCH MCHC RDW Plt Count MPV Prelim Diff (Auto) Neut % (Auto) Lymph % (Auto) [place] % (Auto) Eos % (Auto) Baso % (Auto) Neut # (Auto) Lymph # (Auto) [place] # (Auto) Eos # (Auto) Baso # (Auto) WBC Differential Seg Neuts % (Manual) Band Neuts % (Manual) Lymphocytes % (Manual) Abs Neuts (Manual) Differential Comment Platelet Estimate Platelet Morphology PT INR APTT Puncture Site Patient Temperature O2 Saturation ABG pH ABG pCO2 ABG pO2 ABG HCO3 ABG O2 Content ABG Base Excess ABG Methemoglobin Hemoglobin Carboxyhemoglobin O2 Delivery Device Vent Setting Inspired O2 Critical Value Sodium Potassium Chloride Carbon Dioxide Anion Gap BUN Creatinine Estimated GFR POC Glucose Random Glucose Osmolality Lactic Acid 3.5 H Calcium Calcium Adj for Albumin Phosphorus Magnesium Total Bilirubin GGT AST ALT Alkaline Phosphatase Troponin I Total Protein Albumin Urine Color Urine Clarity Urine pH Ur Specific [place] Urine Protein Urine Glucose (UA) Urine Ketones Urine Occult Blood Urine Nitrate Urine Bilirubin Urine Urobilinogen Ur Leukocyte Esterase Urine RBC Urine WBC Ur Squamous Epith Cells Micro UA Comment Ur Microscopic Review Urine Culture Comments Urine Osmolality 489 Ur Random Sodium 41 Nasal Screen MRSA (PCR) Salicylates Urine Opiates Screen Acetaminophen Ur Barbiturates Screen Ur Amphetamine Screen Ur Amphetamines Screen U Benzodiazepines Scrn Urine Cocaine Screen U Cannabinoids Screen Serum Alcohol Hepatitis A IgM Ab Hep Bs Antigen Hep B Core IgM Ab Hep C IgG Ab 08/02/18 08/03/18 08/03/18 23:30 04:34 05:01 WBC RBC Hgb Hct MCV MCH MCHC RDW Plt Count MPV Prelim Diff (Auto) Neut % (Auto) Lymph % (Auto) [place] % (Auto) Eos % (Auto) Baso % (Auto) Neut # (Auto) Lymph # (Auto) [place] # (Auto) Eos # (Auto) Baso # (Auto) WBC Differential Seg Neuts % (Manual) Band Neuts % (Manual) Lymphocytes % (Manual) Abs Neuts (Manual) Differential Comment Platelet Estimate Platelet Morphology PT 10.8 INR 1.1 APTT Puncture Site Art line Patient Temperature 98.6 O2 Saturation 97 ABG pH 7.53 H* ABG pCO2 25 L ABG pO2 175 H ABG HCO3 21 L ABG O2 Content 13.0 ABG Base Excess -1.5 ABG Methemoglobin 1.7 Hemoglobin 9.3 L Carboxyhemoglobin 1.0 O2 Delivery Device Ventilator Vent Setting Prvc / ac / Inspired O2 35 Critical Value Yes Sodium Potassium Chloride Carbon Dioxide Anion Gap BUN Creatinine Estimated GFR POC Glucose 315 H Random Glucose Osmolality Lactic Acid Calcium Calcium Adj for Albumin Phosphorus Magnesium Total Bilirubin GGT AST ALT Alkaline Phosphatase Troponin I Total Protein Albumin Urine Color Urine Clarity Urine pH Ur Specific [place] Urine Protein Urine Glucose (UA) Urine Ketones Urine Occult Blood Urine Nitrate Urine Bilirubin Urine Urobilinogen Ur Leukocyte Esterase Urine RBC Urine WBC Ur Squamous Epith Cells Micro UA Comment Ur Microscopic Review Urine Culture Comments Urine Osmolality Ur Random Sodium Nasal Screen MRSA (PCR) Salicylates Urine Opiates Screen Acetaminophen Ur Barbiturates Screen Ur Amphetamine Screen Ur Amphetamines Screen U Benzodiazepines Scrn Urine Cocaine Screen U Cannabinoids Screen Serum Alcohol Hepatitis A IgM Ab Hep Bs Antigen Hep B Core IgM Ab Hep C IgG Ab 08/03/18 08/03/18 08/03/18 06:16 07:40 07:40 WBC 17.1 H D RBC 3.22 L Hgb 9.9 L D Hct 29.7 L MCV 92.5 D MCH 30.8 MCHC 33.3 RDW 17.1 Plt Count 388 MPV 7.6 Prelim Diff (Auto) Slide review pending Neut % (Auto) 90.2 H Lymph % (Auto) 5.6 L [place] % (Auto) 4.0 Eos % (Auto) 0.1 Baso % (Auto) 0.1 Neut # (Auto) 15.4 H Lymph # (Auto) 1.0 [place] # (Auto) 0.7 Eos # (Auto) 0.0 Baso # (Auto) 0.0 WBC Differential Manual diff final Seg Neuts % (Manual) 84 H Band Neuts % (Manual) 11 H Lymphocytes % (Manual) 5 L Abs Neuts (Manual) 16.2 H Differential Comment . Platelet Estimate Normal Platelet Morphology Normal PT INR APTT Puncture Site Patient Temperature O2 Saturation ABG pH ABG pCO2 ABG pO2 ABG HCO3 ABG O2 Content ABG Base Excess ABG Methemoglobin Hemoglobin Carboxyhemoglobin O2 Delivery Device Vent Setting Inspired O2 Critical Value Sodium 145 D Potassium 3.5 D Chloride 111 H D Carbon Dioxide 22.9 Anion Gap 11 BUN 33 H Creatinine 1.52 H Estimated GFR 37 L POC Glucose 135 H Random Glucose 169 H D Osmolality Lactic Acid Calcium 7.2 L* Calcium Adj for Albumin 7.9 L Phosphorus 2.2 L Magnesium 2.0 Total Bilirubin 0.2 GGT AST 144 H ALT 63 H Alkaline Phosphatase 293 H Troponin I Total Protein 6.9 Albumin 3.1 L Urine Color Urine Clarity Urine pH Ur Specific [place] Urine Protein Urine Glucose (UA) Urine Ketones Urine Occult Blood Urine Nitrate Urine Bilirubin Urine Urobilinogen Ur Leukocyte Esterase Urine RBC Urine WBC Ur Squamous Epith Cells Micro UA Comment Ur Microscopic Review Urine Culture Comments Urine Osmolality Ur Random Sodium Nasal Screen MRSA (PCR) Salicylates Urine Opiates Screen Acetaminophen Ur Barbiturates Screen Ur Amphetamine Screen Ur Amphetamines Screen U Benzodiazepines Scrn Urine Cocaine Screen U Cannabinoids Screen Serum Alcohol Hepatitis A IgM Ab Hep Bs Antigen Hep B Core IgM Ab Hep C IgG Ab 08/03/18 08:00 WBC RBC Hgb Hct MCV MCH MCHC RDW Plt Count MPV Prelim Diff (Auto) Neut % (Auto) Lymph % (Auto) [place] % (Auto) Eos % (Auto) Baso % (Auto) Neut # (Auto) Lymph # (Auto) [place] # (Auto) Eos # (Auto) Baso # (Auto) WBC Differential Seg Neuts % (Manual) Band Neuts % (Manual) Lymphocytes % (Manual) Abs Neuts (Manual) Differential Comment Platelet Estimate Platelet Morphology PT INR APTT Puncture Site Art line Patient Temperature 98.6 O2 Saturation 97 ABG pH 7.53 H* ABG pCO2 27 L ABG pO2 159 H ABG HCO3 22 ABG O2 Content 13.8 ABG Base Excess -0.4 ABG Methemoglobin 1.8 Hemoglobin 9.9 L Carboxyhemoglobin 0.9 O2 Delivery Device Ventilator Vent Setting Prvc/ac500/17/5peep Inspired O2 35 Critical Value Yes Sodium Potassium Chloride Carbon Dioxide Anion Gap BUN Creatinine Estimated GFR POC Glucose Random Glucose Osmolality Lactic Acid Calcium Calcium Adj for Albumin Phosphorus Magnesium Total Bilirubin GGT AST ALT Alkaline Phosphatase Troponin I Total Protein Albumin Urine Color Urine Clarity Urine pH Ur Specific [place] Urine Protein Urine Glucose (UA) Urine Ketones Urine Occult Blood Urine Nitrate Urine Bilirubin Urine Urobilinogen Ur Leukocyte Esterase Urine RBC Urine WBC Ur Squamous Epith Cells Micro UA Comment Ur Microscopic Review Urine Culture Comments Urine Osmolality Ur Random Sodium Nasal Screen MRSA (PCR) Salicylates Urine Opiates Screen Acetaminophen Ur Barbiturates Screen Ur Amphetamine Screen Ur Amphetamines Screen U Benzodiazepines Scrn Urine Cocaine Screen U Cannabinoids Screen Serum Alcohol Hepatitis A IgM Ab Hep Bs Antigen Hep B Core IgM Ab Hep C IgG Ab Result Diagrams: 08/04/18 04:00 08/04/18 08:09 Microbiology: Microbiology 08/03/18 06:45 Sputum - Endotracheal Gram Stain - Final 08/02/18 19:20 Catheterized Urine Urine Culture - Preliminary No growth in 24 hours Imaging: Head CT 08/02/18 19:14 CONCLUSION: 1. Findings suggest diffuse cerebral edema with loss of delineation of potter- white matter differentiation and diffuse sulcal effacement. No evidence of mass effect or acute blood products. 2. Ethmoid and sphenoid sinus disease. . Chest X-Ray 08/03/18 05:00 CONCLUSION: 1. Stable tubes and lines, as above. 2. Lungs are clear. Procedures: 08/02/2018: Intubation prior to arriving at the hospital. 08/02/2018: Right radial arterial line placement Patient/Family Conference Present at Family Conference: Met with patient's , Mague, at bedside and in the family conference room. Family Conference Location: Bedside, Consult Room, Hallway, Telephone Issues Discussed: * Palliative care role, purpose, approach * Additional medical, psychosocial, and spiritual history * Patients general health, functional status, and cognitive changes in the months leading up to the current hospitalization * Patient/family understanding of the current medical problems * Patient/family understanding of prognosis * Patients goals of care as best understood from advance directives and/or conversations and/or values * Current medical treatment options and benefits/burdens of those options * Likely scenarios comparing ongoing aggressive care with a transition to comfort measures only * Questions answered to the best of my ability * Palliative care contact information provided Assessment and Plan - Disease Oriented Problem List (1) Sepsis (2) Leukocytosis (3) Cardiac arrest (4) History of diabetic gastroparesis (5) Bipolar disorder (6) Opioid dependence (7) Neuropathy (8) Diabetes Pertinent Non-Medical Issues: Psychosocial: Patient was born and raised in [place]. She lives in [place], [place] with her . She is unemployed and on SSI. Her highest level of education is 10th grade. Patient has 3 adult children (Barbie, Jimmy and Marianna). Barbie is incarcerated. Leroy is in the currently living in [place]. Daughter, Marianna, is 19 and lives in [place]. Jimmy and Marianna are attempting to make arrangements to get to [facility]. Spiritual: Zoroastrianism mari Legal: Per [place] statutes, in the absence of written advanced directives healthcare proxy decision making falls to the patient's Ethical issues impacting care: No known ethical issues impacting care at this time. Important Contacts: Mague Betts, significant other: [phone] Prognosis: Patient is a 47-year-old who who has a long history of drug addiction with previous overdose and cardiac arrest. She was hospitalized 08/02/2018 after a subsequent out of hospital cardiac arrest with suspected severe anoxic encephalopathy. CT head shows diffuse cerebral edema. No evidence for any brainstem reflexes on exam. Prognosis is extremely poor. Code Status: Alternative Code (Intubation only) Plan: * INTUBATION ONLY * Decision making: Per [place] statutes, in the absence of written advanced directives healthcare proxy decision making falls to the patient's , Mague. * Aggressive goals up to the point of cardiopulmonary resuscitation.Patient has is hopeful the patient will survive until her children arrived to say goodbye but does not want her suffering to be prolonged unnecessarily. ALTERNATE CODE. * Discussed patient with RN (Leonora) and Dr. Brewer * [facility] is following * Palliative care met with the patient's ; dual visit with Devi Cabrera LCSW. Patient's was appropriately tearful during our conversation stating his had a long history of addiction; and he knew this was going to happen one day. Patient's verbalizes understanding that his will not likely survive this hospitalization and may proceed to brain . If the patient survives the next 24-48 hours, likely withdrawal of artificial life support after family/children arrived. * Palliative care contact information provided to the patient's . * Palliative care will continue to follow this patient throughout her hospitalization to establish trust, assist with symptom management and clarification of medical treatment goals. Appreciation Thank you for the opportunity to participate in the care of Keisha Schmid. Attestation Attestation: To help prompt me to consider important information that might be impacting today's encounter and assessment, information from prior notes written by myself or my colleagues may have been "brought forward" into today's note. My signature on this note, however, is an attestation that I personally performed the exam, history, and/or decision-making noted today, and, unless otherwise indicated, the interactions with patient, family, and staff as well as the review of records all occurred today. I also attest that the listed assessment and stated plan reflect my best clinical judgment today based on the combination of historical information, prior notes, and today's exam/ interactions. When time spent is documented, it refers only to time spent today by the signer, or if indicated, combined time spent today by collaborating physician/nurse practitioner.
--- NOTE | 2018-08-03 12:02 | MB ---
cc: Huang Hernández MD, PhD DATE: 08/03/2018 REASON FOR CONSULTATION: Hypoxic encephalopathy. HISTORY OF PRESENT ILLNESS: This is a 47-year-old female who presented with an [id number]-hospital cardiac arrest. She was found unresponsive in asystole. The amount of time is unknown. She has been ventilator dependent and nonresponsive since admission. CURRENT MEDICATIONS: Tylenol, DuoNeb, chlorhexidine topical, Pepcid, glucagon, Lovenox subcutaneously 30 mg daily, Novolin insulin p.r.n., Trandate, nicardipine p.r.n. NEUROLOGICAL EXAMINATION: VITAL SIGNS: Her blood pressure is 159/69, pulse is 114, temperature 103.9 degrees. HIGHER CORTICAL FUNCTION: She is nonresponsive to sternal rub or voice. Cranial nerves: The pupils are 4 mm, symmetric, nonreactive to light. Corneal reflexes are absent. There are no extraocular movements to oculocephalic maneuvers. Ciliospinal reflex is absent. Gag is absent. On motor examination, there is no withdrawal to painful stimuli. There is known spontaneous movement. RADIOLOGIC DATA: CT of the brain shows diffuse cerebral edema. LABORATORY DATA: The white count is 17,100, hemoglobin 9.9, hematocrit 29%, platelet count 388,000. The PT 10.8, INR 1.1, aPTT 29.2. Sodium is 145, potassium 3.5, chloride 111, CO2 of 22.9. The BUN is 33, creatinine 1.52, GFR is 37, glucose 169, AST 144, ALT 63. IMPRESSION AND PLAN: Severe anoxic encephalopathy. At this time, I do not find any evidence for any brainstem reflexes on examination. Her CT shows diffuse cerebral edema. Prognosis in this case is extremely poor. Huang Hernández MD, PhD QUINN/rs , 08:33 AM , 08:39 AM
--- NOTE | 2018-08-03 13:52 | P.PNCC ---
Subjective Subjective Remarks/Hospital Course: 08/03: No change overnight neurology has been consulted. Patient remains GCS 3 T. Neurology has examined the patient, no corneal ,lid,gag , oculocephalic reflexes. Patient has a poor prognosis. Palliative Care has been notified to determine goals of care. Objective Vital Signs / I&O: Vital Signs 08/02/18 18:42 08/02/18 18:57 08/02/18 19:28 Temperature 98 F Pulse Rate 90 101 H Respiratory Rate 14 14 15 Blood Pressure 74/39 L 151/81 H Pulse Oximetry 100 96 98 08/02/18 20:00 08/02/18 20:09 08/02/18 20:37 Temperature Pulse Rate 101 H Respiratory Rate 14 Blood Pressure 158/78 H Pulse Oximetry 99 98 100 08/02/18 21:00 08/02/18 22:00 08/02/18 23:00 Temperature 93.2 F L 93.8 F L 94.2 F L Pulse Rate 89 82 87 Respiratory Rate 16 16 16 Blood Pressure Pulse Oximetry 100 100 08/03/18 00:00 08/03/18 00:02 08/03/18 00:05 Temperature 96.8 F L Pulse Rate 83 82 Respiratory Rate 16 22 23 Blood Pressure Pulse Oximetry 100 100 08/03/18 01:00 08/03/18 02:00 08/03/18 02:15 Temperature 98.2 F 99.9 F H 100.6 F H Pulse Rate 77 78 77 Respiratory Rate 22 22 22 Blood Pressure Pulse Oximetry 100 100 100 08/03/18 03:04 08/03/18 03:06 08/03/18 03:15 Temperature 102.7 F H 102.7 F H 102.9 F H Pulse Rate 78 77 79 Respiratory Rate 22 19 22 Blood Pressure 126/58 L Pulse Oximetry 100 100 100 08/03/18 03:28 08/03/18 03:30 08/03/18 03:45 Temperature 103.5 F H 103.8 F H Pulse Rate 82 83 85 Respiratory Rate 24 Blood Pressure Pulse Oximetry 100 100 100 08/03/18 04:00 08/03/18 04:15 08/03/18 04:30 Temperature 104.0 F H 104.4 F H 104.4 F H Pulse Rate 90 95 H 103 H Respiratory Rate Blood Pressure Pulse Oximetry 100 100 100 08/03/18 04:45 01/14/19 05:00 08/03/18 05:15 Temperature 104.4 F H 104.4 F H 104.1 F H Pulse Rate 107 H 109 H 111 H Respiratory Rate Blood Pressure Pulse Oximetry 100 100 100 08/03/18 05:30 08/03/18 05:45 08/03/18 06:00 Temperature 104.0 F H 103.9 F H Pulse Rate 112 H 113 H 114 H Respiratory Rate 18 Blood Pressure Pulse Oximetry 100 100 100 08/03/18 06:13 08/03/18 07:00 08/03/18 07:18 Temperature 103.9 F H Pulse Rate 113 H 113 H Respiratory Rate 19 21 20 Blood Pressure 126/60 Pulse Oximetry 100 99 100 08/03/18 07:37 08/03/18 08:00 08/03/18 08:51 Temperature 104.5 F H Pulse Rate 114 H 117 H 121 H Respiratory Rate 19 23 18 Blood Pressure 106/57 L Pulse Oximetry 100 100 08/03/18 09:00 08/03/18 10:00 08/03/18 10:08 Temperature 104.9 F H 105.1 F H Pulse Rate 121 H 118 H 118 H Respiratory Rate 17 27 H 16 Blood Pressure 112/63 Pulse Oximetry 100 100 100 08/03/18 11:00 08/03/18 11:13 08/03/18 11:51 Temperature 105.3 F H Pulse Rate 118 H 118 H 119 H Respiratory Rate 14 18 14 Blood Pressure 113/65 Pulse Oximetry 100 100 100 08/03/18 12:00 08/03/18 13:00 Temperature 105.4 F H Pulse Rate 120 H 119 H Respiratory Rate 16 16 Blood Pressure 103/60 Pulse Oximetry 100 100 Intake & Output 08/02/18 08/03/18 08/03/18 18:59 06:59 18:59 Intake Total 900 / 900 875 / 875 Output Total 1600 / 1600 292 / 292 Balance -700 / -700 583 / 583 Weight 70.307 kg 70.6 kg Intake: IV 900 / 900 875 / 875 NS Inj 1,000 ML @ 125 mls/hr IV 900 / 900 625 / 625 .CONT .Q8H [facility] Rx#:[id number] Cardene Inj 25 MG In NS Inj 240 250 / 250 ML @ 5 MG/HR 50 mls/hr IV.CONT TITRATE PRN Rx#:[id number] Output: Urine Amount (Catheter) 1599 / 1599 292 / 292 Indwelling Urethral Catheter 1599 292 / 292 Other: Weight On Admission 67 kg Result Diagrams: 08/03/18 07:40 08/03/18 07:40 Other Results: Laboratory Results WBC 17.1 th/mm3 (4.0-11.0) H D 08/03/18 07:40 RBC 3.22 mil/mm3 (4.00-5.30) L 08/03/18 07:40 Hgb 9.9 gm/dL (11.6-15.3) L D 08/03/18 07:40 Hct 29.7 % (35.0-46.0) L 08/03/18 07:40 MCV 92.5 fL (80.0-100.0) D 08/03/18 07:40 MCH 30.8 pg (27.0-34.0) 08/03/18 07:40 MCHC 33.3 % (32.0-36.0) 08/03/18 07:40 RDW 17.1 % (11.6-17.2) 08/03/18 07:40 Plt Count 388 th/mm3 (150-450) 08/03/18 07:40 MPV 7.6 fL (7.0-11.0) 08/03/18 07:40 Prelim Diff (Auto) Slide review pending 08/03/18 07:40 Neut % (Auto) 90.2 % (16.0-70.0) H 08/03/18 07:40 Lymph % (Auto) 5.6 % (9.0-44.0) L 08/03/18 07:40 [place] % (Auto) 4.0 % (0.0-8.0) 08/03/18 07:40 Eos % (Auto) 0.1 % (0.0-4.0) 08/03/18 07:40 Baso % (Auto) 0.1 % (0.0-2.0) 08/03/18 07:40 Neut # (Auto) 15.4 th/mm3 (1.8-7.7) H 08/03/18 07:40 Lymph # (Auto) 1.0 th/mm3 (1.0-4.8) 08/03/18 07:40 [place] # (Auto) 0.7 th/mm3 (0.0-0.9) 08/03/18 07:40 Eos # (Auto) 0.0 th/mm3 (0.0-0.4) 08/03/18 07:40 Baso # (Auto) 0.0 th/mm3 (0.0-0.2) 08/03/18 07:40 WBC Differential Manual diff final 08/03/18 07:40 Seg Neuts % (Manual) 84 % (16-70) H 08/03/18 07:40 Band Neuts % (Manual) 11 % (0-6) H 08/03/18 07:40 Lymphocytes % (Manual) 5 % (9-44) L 08/03/18 07:40 Abs Neuts (Manual) 16.2 th/mm3 (1.8-7.7) H 08/03/18 07:40 Differential Comment . 08/03/18 07:40 Platelet Estimate Normal (Normal) 08/03/18 07:40 Platelet Morphology Normal (Normal) 08/03/18 07:40 PT 10.8 sec (9.8-11.6) 08/03/18 05:01 INR 1.1 Ratio 08/03/18 05:01 APTT 29.2 sec (23.4-31.7) 08/02/18 19:20 Puncture Site Art line 08/03/18 08:00 Patient Temperature 98.6 08/03/18 08:00 O2 Saturation 97 % (90-100) 08/03/18 08:00 ABG pH 7.53 (7.380-7.420) H* 08/03/18 08:00 ABG pCO2 27 mmHg (38-42) L 08/03/18 08:00 ABG pO2 159 mmHG (61-120) H 08/03/18 08:00 ABG HCO3 22 mmol/L (22-26) 08/03/18 08:00 ABG O2 Content 13.8 Vol % (12.0-20.0) 08/03/18 08:00 ABG Base Excess -0.4 mmol/L (-2-2) 08/03/18 08:00 ABG Methemoglobin 1.8 % (0-2) 08/03/18 08:00 Hemoglobin 9.9 G/DL (12.0-16.0) L 08/03/18 08:00 Carboxyhemoglobin 0.9 % (0-4) 08/03/18 08:00 O2 Delivery Device Ventilator 08/03/18 08:00 Vent Setting Prvc/ac500/17/5peep 08/03/18 08:00 Inspired O2 35 % 08/03/18 08:00 Critical Value Yes 08/03/18 08:00 Sodium 145 meq/L (136-145) D 08/03/18 07:40 Potassium 3.5 meq/L (3.5-5.1) D 08/03/18 07:40 Chloride 111 meq/L (98-107) H D 08/03/18 07:40 Carbon Dioxide 22.9 meq/L (21.0-32.0) 08/03/18 07:40 Anion Gap 11 meq/L (5-15) 08/03/18 07:40 BUN 33 mg/dL (7-18) H 08/03/18 07:40 Creatinine 1.52 mg/dL (0.50-1.00) H 08/03/18 07:40 Estimated GFR 37 mL/min (>89) L 08/03/18 07:40 POC Glucose 86 mg/dl (68-110) 08/03/18 11:38 Random Glucose 169 mg/dL (74-106) H D 08/03/18 07:40 Osmolality 313 mosm/kg (275-295) H 08/02/18 21:36 Lactic Acid 3.5 mmol/L (0.4-2.0) H 08/02/18 23:00 Calcium 7.2 mg/dL (8.5-10.1) L* 08/03/18 07:40 Calcium Adj for Albumin 7.9 mg/dL (8.5-10.1) L 08/03/18 07:40 Phosphorus 2.2 mg/dL (2.5-4.9) L 08/03/18 07:40 Magnesium 2.0 mg/dL (1.5-2.5) 08/03/18 07:40 Total Bilirubin 0.2 mg/dL (0.2-1.0) 08/03/18 07:40 GGT 462 U/L (5-55) H 08/02/18 21:36 AST 144 U/L (15-37) H 08/03/18 07:40 ALT 63 U/L (10-53) H 08/03/18 07:40 Alkaline Phosphatase 293 U/L (45-117) H 08/03/18 07:40 Troponin I 0.04 ng/mL (0.02-0.05) 08/02/18 19:20 Total Protein 6.9 g/dL (6.4-8.2) 08/03/18 07:40 Albumin 3.1 g/dL (3.4-5.0) L 08/03/18 07:40 Urine Color Yellow (Yellw/Straw) 08/02/18 19:20 Urine Clarity Hazy (Clear) H 08/02/18 19:20 Urine pH 6.0 (5.0-8.5) 08/02/18 19:20 Ur Specific [place] 1.011 (1.002-1.035) 08/02/18 19:20 Urine Protein 100 mg/dL (Neg-Trace) H 08/02/18 19:20 Urine Glucose (UA) 500 or greater mg/dL (Negative) 08/02/18 19:20 Urine Ketones Negative mg/dL (Negative) 08/02/18 19:20 Urine Occult Blood Small (Negative) H 08/02/18 19:20 Urine Nitrate Negative (Negative) 08/02/18 19:20 Urine Bilirubin Negative (Negative) 08/02/18 19:20 Urine Urobilinogen Less than 2 mg/dL (Less than 2) 08/02/18 19:20 Ur Leukocyte Esterase Negative (Negative) 08/02/18 19:20 Urine RBC 22 /hpf (0-3) H 08/02/18 19:20 Urine WBC 10 /hpf (0-5) H 08/02/18 19:20 Ur Squamous Epith Cells 1 /hpf (0-5) 08/02/18 19:20 Micro UA Comment Cath-culture ind 08/02/18 19:20 Ur Microscopic Review Not Reportable 08/02/18 19:20 Urine Culture Comments Cath-cult indicated 08/02/18 19:20 Urine Osmolality 489 mosm/kg (300-1300) 08/02/18 22:45 Ur Random Sodium 41 meq/L 08/02/18 22:45 Nasal Screen MRSA (PCR) Not detected (Negative) 08/02/18 22:45 Salicylates Less than 1.7 mg/dL (2.8-20.0) L 08/02/18 19:20 Urine Opiates Screen Neg (Neg) 08/02/18 22:45 Acetaminophen Less than 2.0 mcg/mL (10.0-30.0) L 08/02/18 19:20 Ur Barbiturates Screen Neg (Neg) 08/02/18 22:45 Ur Amphetamine Screen Neg (Neg) 08/02/18 22:45 Ur Amphetamines Screen Neg (Neg) 08/02/18 19:20 U Benzodiazepines Scrn Neg (Neg) 08/02/18 22:45 Urine Cocaine Screen Pos (Neg) H 08/02/18 22:45 U Cannabinoids Screen Neg (Neg) 08/02/18 22:45 Serum Alcohol 4 mg/dL (0-5) 08/02/18 19:20 Hepatitis A IgM Ab Nonreactive (Nonreactive) 08/02/18 21:36 Hep Bs Antigen Nonreactive (Nonreactive) 08/02/18 21:36 Hep B Core IgM Ab Nonreactive (Nonreactive) 08/02/18 21:36 Hep C IgG Ab Nonreactive (Nonreactive) 08/02/18 21:[address] 08/02/18 19:14 CONCLUSION: 1. Findings suggest diffuse cerebral edema with loss of delineation of potter- white matter differentiation and diffuse sulcal effacement. No evidence of mass effect or acute blood products. 2. Ethmoid and sphenoid sinus disease. . Chest X-Ray 08/03/18 05:00 CONCLUSION: 1. Stable tubes and lines, as above. 2. Lungs are clear. Objective Remarks: GENERAL: Intubated and on no sedation. Obtunded SKIN: Warm and dry. HEAD: Atraumatic. Normocephalic. EYES: Pupils equal and round. No scleral icterus. No injection or drainage. ENT: No nasal bleeding or discharge. Mucous membranes pink and moist. NECK: Trachea midline. No JVD. CARDIOVASCULAR: Normal rate, regular rhythm. RESPIRATORY: No accessory muscle use. Clear to auscultation. Breath sounds equal bilaterally. GASTROINTESTINAL: Abdomen soft, non-tender, nondistended. No guarding. MUSCULOSKELETAL: Extremities without clubbing, cyanosis, or edema. No obvious deformities. NEUROLOGICAL: GCS 3T. No gag, lid, corneal, oculocephalic reflexes. Pupils are 6mm fixed and dilated. 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 Very critically ill. We will not pursue therapeutic hypothermia given length of out of hospital cardiac arrest. We will continue supportive care. Plan by systems: Neurologic: Toxic encephalopathy Hypoxic ischemic encephalopathy Polysubstance abuse Cocaine abuse Malignant cerebral edema Send confirmatory urine tox screen Send Tylenol, salicylate, alcohol levels Frequent neurochecks Avoid any sedation May likely require formal brain testing within the next 24-48 hours Watch for withdrawal symptoms Neurology consulted Respiratory: Acute hypoxic hypercarbic respiratory failure Vent bundle Head of bed elevated Wean FiO2 for goal SPO2 greater than 90% Nebs No weaning of mechanical ventilation until neurologic exam improves Cardiovascular: Sinus tachycardia Hypertensive emergency Out of hospital asystolic cardiac arrest Nicardipine for goal systolic blood pressure less than 160 Normal saline maintenance fluids at 84 cc an hour Renal: Acute kidney injury -- Strict I/Os Daily BMP FEN/GI: Acute liver injury Acute intravascular volume depletion Send hepatitis panel Send GGT Liver injury may be combination of chronic substance abuse with component of shock liver from cardiac arrest Daily CMP, magnesium, phosphorus ICU electrolyte protocol Heme/ID: No infectious etiology suspected this time Daily CBC Endocrine: Hyperglycemia of critical illness -- SSI, medium scale, every 6 Prophylaxis: GI Prophylaxis IV Pepcid DVT Prophylaxis -- SCDs Lovenox Lines: 08/02 IJ triple-lumen catheter 08/02 right radial arterial line Muhammad Dispo: Admit ICU. Critically ill. This patient remains critically ill with one or more organ systems which are or may become a threat to life. I have spent in excess of 37 minutes discontinuously in the care and management of this patient. This time is exclusive of procedures, and includes, but is not limited to, evaluation of the patient, review of the medical record, discussions with family, consultants, nursing staff, or respiratory therapy, and documentation in the medical record. Discussed with Palliative reconnaissance crewmember Meliza Bautista.
--- NOTE | 2018-08-03 16:20 | P.PNPAL ---
Palliative care asked to assist with [facility] Notification in assistance to get patient's son released from service. Spoke with [facility] staff member, Iqra. Provided information requested. Case #[id number]. Notified charlene Graves of [facility] Notification and case number. Case number also provided to per Iqra's request. Palliative care will continue to follow. Charlene Graves: #[phone].
--- NOTE | 2018-08-03 19:23 | MG ---
cc: Huang Hernández MD, PhD TEST NUMBER: [id number]. TECHNIQUE: This is a 17-channel EEG. DESCRIPTION: Background rhythm, abnormal with severely attenuated EEG activity. No epileptiform features are identified. No lateralizing features are seen. Amplitude is very low-amplitude, on the order of 1-2 microvolts. INTERPRETATION: Severely abnormal electroencephalogram consistent with a severe encephalopathy with only minimal EEG activity present. Huang Hernández MD, PhD QUINN/taylor , 06:37 PM , 06:42 PM
[2018-08-03] MEDS: Enoxaparin Inj 30 MG/0.3 ML Syringe SQ SCH (21:56)
--- NOTE | 2018-08-03 23:28 | ECG ---
Date Performed: 08/02/2018 Time Performed: 18:45:19 PTAGE: 47 years EKG: Sinus rhythm POSSIBLE RIGHT VENTRICULAR CONDUCTION DELAY BORDERLINE ECG INTERPRETATION BASED ON A DEFAULT AGE OF 39 YEARS NO PREVIOUS TRACING DOCTOR: Dion Land Interpretating Date/Time 08/03/2018 23:25:54
[2018-08-04] MEDS: Insulin NovoLIN Regular Correctional Sugar Inj SQ SCH ×9 (01:04→17:48)
[2018-08-04] MEDS: Chlorhexidine Gluconate 2% 1 Pack (2 Cloths) TOPICAL SCH (04:07)
[2018-08-04 04:18] LABS: Baso % (Auto) 0.2 % (0.0-2.0); Hematocrit 26.3 % (35.0-46.0); Hemoglobin 8.5 gm/dL (11.6-15.3); Lymph # (Auto) 1.2 th/mm3 (1.0-4.8); Lymph % (Auto) 8.8 % (9.0-44.0); Mean Corpuscular HGB Conc 32.2 % (32.0-36.0); Mean Corpuscular Hemoglobin 30.5 pg (27.0-34.0); Mean Corpuscular Volume 94.8 fL (80.0-100.0); Mean Platelet Volume 7.6 fL (7.0-11.0); Mono # (Auto) 0.8 th/mm3 (0.0-0.9); Mono % (Auto) 6.3 % (0.0-8.0); Neut # (Auto) 11.4 th/mm3 (1.8-7.7); Neut % (Auto) 84.7 % (16.0-70.0); Platelet Count 293 th/mm3 (150-450); Red Blood Count 2.78 mil/mm3 (4.00-5.30); Red Cell Distribution Width 18.2 % (11.6-17.2); White Blood Count 13.4 th/mm3 (4.0-11.0)
[2018-08-04 04:26] LABS: ABG Base Excess -2.5 mmol/L (-2-2); ABG PCO2 32 mmHg (38-42); ABG PO2 162 mmHG (61-120)
[2018-08-04 04:28] LABS: INR 1.2 Ratio; Prothrombin Time 11.9 sec (9.8-11.6)
--- NOTE | 2018-08-04 04:43 | XR ---
EXAM DATE: 08/04/2018 4:22 AM EST AGE/SEX: 47 years / Female INDICATIONS: Short of breath. CLINICAL DATA: This is the patient's subsequent encounter. Patient reports that signs and symptoms h ave been present for 2 days and indicates a pain score of 0/10. MEDICAL/SURGICAL HISTORY: . Diabetes. Cholecystectomy. . Tubal ligation. Nephrectomy. COMPARISON: [facility], CHEST 1V SINGLE AP, 08/03/2018. . FINDINGS: Stable ETT, left IJ central line and NGT. Lungs are clear. Cardiomediastinal contours within normal l imits. Remainder of exam is unchanged. CONCLUSION: 1. No significant interval change. 2. Stable tubes and lines. 3. Lungs are clear. Electronically signed by: Boris Awan MD Board Certified Radiologist 08/04/2018 4:42 AM EST
[2018-08-04] MEDS: Sod Chloride 0.9% Inj 1,000 ML IV.CONT SCH (05:18)
[2018-08-04] MEDS: Famotidine PF Inj 20 MG/2 ML Vial IV.PUSH SCH (08:34)
[2018-08-04] MEDS: Sodium Chloride 0.9% 2 ML Flush BID IV.FLUSH SCH (08:34)
--- NOTE | 2018-08-04 08:44 | P.PNNEU ---
Subjective Subjective Comments: No new neurologic sx, has been nonresponsive Active Medications: Active Medications Acetaminophen (Tylenol) 650 mg PO Q6H PRN PRN Reason: TEMPERATURE > 101 F Last Admin: 08/03/18 10:33 Dose: 650 mg Albuterol (Duoneb Neb (Prn)) 1 ampul NEB Q2HR NEB PRN PRN Reason: WHEEZING Albuterol (Duoneb Neb (Doris)) 1 ampul NEB Q4HR NEB [facility] Last Admin: 08/04/18 07:51 Dose: 1 ampul Chlorhexidine Gluconate (Chlorhexidine 2% Cloth) 3 pack TOPICAL DAILY@0400 DORIS Stop: 08/08/18 03:59 Last Admin: 08/04/18 04:07 Dose: 3 pack Chlorhexidine Gluconate (Chlorhexidine 2% Cloth) 3 pack TOPICAL DAILY@0400 PRN PRN Reason: Extra cloth needed Stop: 08/08/18 03:59 Dextrose (D50w Vial) 50 ml IV.PUSH UNSCH PRN PRN Reason: PER HYPOGLYCEMIA PROTOCOL Last Admin: 08/03/18 17:55 Dose: 50 ml Enoxaparin Sodium (Lovenox Inj) 30 mg SQ Q24H [facility] Last Admin: 08/03/18 21:56 Dose: 30 mg Famotidine (Pepcid Pf Inj) 20 mg IV.PUSH Q12HR [facility] Last Admin: 08/04/18 08:34 Dose: 20 mg Glucagon (Glucagon Inj) 1 mg OTHER PRN PRN PRN Reason: for Hypoglycemia Protocol Sodium Chloride (Ns Inj) 1,000 mls @ 125 mls/hr IV.CONT .Q8H [facility] Last Admin: 08/04/18 05:18 Dose: 125 mls/hr Magnesium Sulfate 4 gm/ Sodium (Chloride) 100 mls @ 50 mls/hr IV.SIG UNSCH PRN PRN Reason: For Magnesium 0.9 - 1.1 mg/dL Magnesium Sulfate 2 gm/ Sodium (Chloride) 100 mls @ 50 mls/hr IV.SIG UNSCH PRN PRN Reason: For Magnesium 1.2 - 1.6 mg/dL Potassium Chloride (Kcl 40 Meq Premix Inj) 40 meq in 100 mls @ 25 mls/hr IV.SIG Q2H PRN PRN Reason: For Potassium 2.8 - 3.2 mEq/L Potassium Chloride (Kcl 20 Meq Premix Inj) 20 meq in 100 mls @ 50 mls/hr IV.SIG Q2H PRN PRN Reason: For Potassium 3.3 - 3.5 mEq/L Potassium Chloride (Kcl 40 Meq Premix Inj) 40 meq in 100 mls @ 25 mls/hr IV.SIG UNSCH PRN PRN Reason: For Potassium 3.3 - 3.5 mEq/L Potassium Chloride (Kcl 20 Meq Premix Inj) 20 meq in 100 mls @ 50 mls/hr IV.SIG Q2H PRN PRN Reason: For Potassium 2.8 - 3.2 mEq/L Potassium Phosphate 30 mmol/ (Sodium Chloride) 260 mls @ 42 mls/hr IV.SIG UNSCH PRN PRN Reason: SEE LABEL COMMENTS Sodium Glycerophosphate 30 (mmol/ Sodium Chloride) 280 mls @ 42 mls/hr IV.SIG UNSCH PRN PRN Reason: For Phosphorus < 2.5 mg/dL Last Infusion: 08/03/18 16:19 Dose: Infused Norepinephrine Bitartrate (Levophed-Dextrose 4 Mg/250 Ml Drip) 4 mg in 250 mls @ 7.5 mls/hr IV.SIG TITRATE PRN; Protocol PRN Reason: Per Protocol Last Titration: 08/03/18 20:19 Dose: 3 mcg/min, 11.25 mls/hr Insulin Human Regular (Novolin R Correctional Sugar Inj) 0 units SQ Q2HR DORIS; Protocol Last Admin: 08/04/18 08:08 Dose: Not Given Labetalol HCl (Trandate Inj) 10 mg IV.PUSH Q20M PRN PRN Reason: sbp > 160 or DBP > 95 Last Admin: 08/03/18 02:33 Dose: 10 mg Magnesium Oxide (Mag-Ox) 800 mg PO UNSCH PRN PRN Reason: For Magnesium 1.2 - 1.6 mg/dL Ondansetron HCl (Zofran Inj) 4 mg IV.PUSH Q6H PRN PRN Reason: NAUSEA OR VOMITING Potassium Chloride (Kcl Liq) 40 meq PO UNSCH PRN PRN Reason: Potassium level 3.3-3.5 mEq/L Potassium Chloride (Kcl Liq) 40 meq PO UNSCH PRN PRN Reason: Potassium level 3.3-3.5 mEq/L Potassium Phosphate (K-Phos Original) 2,000 mg PO Q4H PRN PRN Reason: Phosphorus Less Than 2.5 mg/dL Potassium Phosphate (K-Phos Original) 2,000 mg PO UNSCH PRN PRN Reason: SEE LABEL COMMENTS Sodium Chloride (Ns Flush) 2 ml IV.FLUSH BID DOR[facility] Last Admin: 08/04/18 08:34 Dose: 2 ml Sodium Chloride (Ns Flush) 2 ml IV.FLUSH PRN PRN PRN Reason: FLUSH AFTER USING IV ACCESS Last Admin: 08/03/18 08:52 Dose: 2 ml Terbutaline Sulfate (Brethine Inj) 1 mg SQ UNSCH PRN PRN Reason: For Extravasation Allergies/Adverse Reactions: Allergies Allergy/AdvReac Type Severity Reaction Status Date / Time ketorolac Allergy Severe Anaphylaxis Verified 06/28/18 18:57 Physical Exam Vital signs: Vital Signs 08/03/18 08:51 08/03/18 09:00 08/03/18 10:00 Temperature 104.9 F H Pulse Rate 121 H 121 H 118 H Respiratory Rate 18 17 27 H Blood Pressure 106/57 L Pulse Oximetry 100 100 100 08/03/18 10:08 08/03/18 11:00 08/03/18 11:13 Temperature 105.1 F H 105.3 F H Pulse Rate 118 H 118 H 118 H Respiratory Rate 16 14 18 Blood Pressure 112/63 Pulse Oximetry 100 100 100 08/03/18 11:51 08/03/18 12:00 08/03/18 13:00 Temperature 105.4 F H Pulse Rate 119 H 120 H 119 H Respiratory Rate 14 16 16 Blood Pressure 113/65 103/60 Pulse Oximetry 100 100 100 08/03/18 14:00 08/03/18 15:00 08/03/18 15:15 Temperature Pulse Rate 120 H 113 H 110 H Respiratory Rate 16 19 21 Blood Pressure 96/48 L Pulse Oximetry 100 100 100 08/03/18 15:38 08/03/18 16:00 08/03/18 17:00 Temperature 100 F H Pulse Rate 108 H 97 H Respiratory Rate 14 14 14 Blood Pressure 93/64 L Pulse Oximetry 100 100 100 08/03/18 18:00 08/03/18 19:00 08/03/18 19:23 Temperature Pulse Rate 95 H 93 H 92 H Respiratory Rate 14 13 13 Blood Pressure Pulse Oximetry 100 100 100 08/03/18 20:00 08/03/18 21:00 08/03/18 22:00 Temperature Pulse Rate 93 H 94 H 95 H Respiratory Rate 13 13 13 Blood Pressure 128/72 Pulse Oximetry 100 100 100 08/03/18 23:00 08/03/18 23:02 08/04/18 00:00 Temperature Pulse Rate 94 H 95 H 97 H Respiratory Rate 13 13 13 Blood Pressure Pulse Oximetry 100 100 100 08/04/18 01:00 08/04/18 02:00 08/04/18 03:00 Temperature 96.8 F L 96.9 F L Pulse Rate 103 H 105 H 104 H Respiratory Rate 13 13 13 Blood Pressure Pulse Oximetry 100 100 100 08/04/18 03:16 08/04/18 04:00 08/04/18 05:00 Temperature 96.9 F L 97.1 F L Pulse Rate 104 H 105 H 107 H Respiratory Rate 13 14 13 Blood Pressure 141/85 H Pulse Oximetry 100 100 100 08/04/18 05:59 08/04/18 06:00 08/04/18 07:50 Temperature 97.2 F L Pulse Rate 105 H 105 H 105 H Respiratory Rate 13 13 Blood Pressure Pulse Oximetry 100 08/04/18 07:51 Temperature Pulse Rate Respiratory Rate 13 Blood Pressure Pulse Oximetry 100 Intake & Output 08/03/18 08/04/18 08/04/18 18:59 06:59 18:59 Intake Total 1340 / 1340 1999 Output Total 666 / 666 2440 / 2440 Balance 674 / 674 -440 / -440 Weight 71.5 kg Intake: IV 1340 / 1340 1999 NS Inj 1,000 ML @ 125 mls/hr IV 625 / 625 1999 .CONT .Q8H DORIS Rx#:[id number] Cardene Inj 25 MG In NS Inj 240 435 / 435 ML @ 5 MG/HR 50 mls/hr IV.CONT TITRATE PRN Rx#:[id number] Glycophos Inj 30 MMOL In NS Inj 280 / 280 250 ML @ 42 mls/hr IV.SIG UNSCH PRN Rx#:[id number] Output: Urine Amount (Catheter) 666 / 666 2440 / 2440 Indwelling Urethral Catheter 666 / 666 2440 / 2440 - Routine Neurological Exam nonresponsive to voice and sternal rub Pupils 4mm symmetric and nonreactive to light. Occulocephalic maneuvers ellicit no extraoccular response. absent ciliospinal reflex. absent gag reflex. MOTOR--no spontaneous limb movement , no withdrawal or localization to painful stim. - Urinary Catheter Management Indwelling Urethral Catheter Cath placed during this visit: yes Reason for continuing: Hourly intake/output Insertion date: 08/02/18 Insertion time: 19:31 Objective Laboratory Results - last 24 hr 08/03/18 08/03/18 08/03/18 07:40 11:38 17:49 WBC RBC Hgb Hct MCV MCH MCHC RDW Plt Count MPV Neut % (Auto) Lymph % (Auto) [place] % (Auto) Eos % (Auto) Baso % (Auto) Neut # (Auto) Lymph # (Auto) [place] # (Auto) Eos # (Auto) Baso # (Auto) WBC Differential Manual diff final Seg Neuts % (Manual) 84 H Band Neuts % (Manual) 11 H Lymphocytes % (Manual) 5 L Abs Neuts (Manual) 16.2 H Differential Comment Platelet Estimate Normal Platelet Morphology Normal PT INR Puncture Site Patient Temperature O2 Saturation ABG pH ABG pCO2 ABG pO2 ABG HCO3 ABG O2 Content ABG Base Excess ABG Methemoglobin Hemoglobin Carboxyhemoglobin O2 Delivery Device Vent Setting Inspired O2 Critical Value POC Glucose 86 26 L* 08/03/18 08/03/18 08/03/18 17:52 18:15 19:52 WBC RBC Hgb Hct MCV MCH MCHC RDW Plt Count MPV Neut % (Auto) Lymph % (Auto) [place] % (Auto) Eos % (Auto) Baso % (Auto) Neut # (Auto) Lymph # (Auto) [place] # (Auto) Eos # (Auto) Baso # (Auto) WBC Differential Seg Neuts % (Manual) Band Neuts % (Manual) Lymphocytes % (Manual) Abs Neuts (Manual) Differential Comment Platelet Estimate Platelet Morphology PT INR Puncture Site Patient Temperature O2 Saturation ABG pH ABG pCO2 ABG pO2 ABG HCO3 ABG O2 Content ABG Base Excess ABG Methemoglobin Hemoglobin Carboxyhemoglobin O2 Delivery Device Vent Setting Inspired O2 Critical Value POC Glucose 31 L* 170 H 142 H 08/03/18 08/03/18 08/03/18 21:51 22:54 23:51 WBC RBC Hgb Hct MCV MCH MCHC RDW Plt Count MPV Neut % (Auto) Lymph % (Auto) [place] % (Auto) Eos % (Auto) Baso % (Auto) Neut # (Auto) Lymph # (Auto) [place] # (Auto) Eos # (Auto) Baso # (Auto) WBC Differential Seg Neuts % (Manual) Band Neuts % (Manual) Lymphocytes % (Manual) Abs Neuts (Manual) Differential Comment Platelet Estimate Platelet Morphology PT INR Puncture Site Patient Temperature O2 Saturation ABG pH ABG pCO2 ABG pO2 ABG HCO3 ABG O2 Content ABG Base Excess ABG Methemoglobin Hemoglobin Carboxyhemoglobin O2 Delivery Device Vent Setting Inspired O2 Critical Value POC Glucose 180 H 224 H 230 H 08/04/18 08/04/18 08/04/18 03:52 04:00 04:00 WBC 13.4 H RBC 2.78 L Hgb 8.5 L Hct 26.3 L MCV 94.8 MCH 30.5 MCHC 32.2 RDW 18.2 H Plt Count 293 MPV 7.6 Neut % (Auto) 84.7 H Lymph % (Auto) 8.8 L [place] % (Auto) 6.3 Eos % (Auto) 0.0 Baso % (Auto) 0.2 Neut # (Auto) 11.4 H Lymph # (Auto) 1.2 [place] # (Auto) 0.8 Eos # (Auto) 0.0 Baso # (Auto) 0.0 WBC Differential . Seg Neuts % (Manual) Band Neuts % (Manual) Lymphocytes % (Manual) Abs Neuts (Manual) Differential Comment Auto diff final Platelet Estimate Platelet Morphology PT 11.9 H INR 1.2 Puncture Site Patient Temperature O2 Saturation ABG pH ABG pCO2 ABG pO2 ABG HCO3 ABG O2 Content ABG Base Excess ABG Methemoglobin Hemoglobin Carboxyhemoglobin O2 Delivery Device Vent Setting Inspired O2 Critical Value POC Glucose 239 H 08/04/18 08/04/18 08/04/18 04:15 05:48 07:52 WBC RBC Hgb Hct MCV MCH MCHC RDW Plt Count MPV Neut % (Auto) Lymph % (Auto) [place] % (Auto) Eos % (Auto) Baso % (Auto) Neut # (Auto) Lymph # (Auto) [place] # (Auto) Eos # (Auto) Baso # (Auto) WBC Differential Seg Neuts % (Manual) Band Neuts % (Manual) Lymphocytes % (Manual) Abs Neuts (Manual) Differential Comment Platelet Estimate Platelet Morphology PT INR Puncture Site Art line Patient Temperature 98.6 O2 Saturation 97 ABG pH 7.43 H ABG pCO2 32 L ABG pO2 162 H ABG HCO3 21 L ABG O2 Content 12.5 ABG Base Excess -2.5 L ABG Methemoglobin 1.5 Hemoglobin 8.9 L Carboxyhemoglobin 1.0 O2 Delivery Device Ventilator Vent Setting 13/500/it1.0/5peep Inspired O2 35 Critical Value No POC Glucose 263 H 237 H Microbiology 08/03/18 06:45 Gram Stain - Final Sputum - Endotracheal 08/02/18 19:20 Urine Culture - Preliminary Catheterized Urine No growth in 24 hours Review/Management - Review/Management Plan: severe anoxic encephalopathy. She has no brainstem reflexes on exam. THis am no spontaneous respirations over ventilator. Will order cerebral perfusion study to evaluate further for brain , as her exam is consistent with this.Also repeat EEG today
[2018-08-04 09:24] LABS: Alanine Aminotransferase 61 U/L (10-53); Albumin 2.6 g/dL (3.4-5.0); Alkaline Phosphatase 225 U/L (45-117); Anion Gap 11 meq/L (5-15); Aspartate Aminotransferase 143 U/L (15-37); Blood Urea Nitrogen 27 mg/dL (7-18); Calcium 7.7 mg/dL (8.5-10.1); Carbon Dioxide 23.1 meq/L (21.0-32.0); Chloride 128 meq/L (98-107); Glomerular Filtration Rate 39 mL/min (>89); Glucose,Random 249 mg/dL (74-106); Magnesium 2.4 mg/dL (1.5-2.5); Phosphorus 3.5 mg/dL (2.5-4.9); Potassium 3.6 meq/L (3.5-5.1); Total Protein 6.5 g/dL (6.4-8.2)
[2018-08-04 09:26] LABS: Sodium 162 meq/L (136-145)
--- NOTE | 2018-08-04 11:19 | NM ---
EXAM DATE: 08/04/2018 10:57 AM EST AGE/SEX: 47 years / Female INDICATIONS: Brain . Anoxic brain injury. CLINICAL DATA: This is the patient's initial encounter. Patient reports that signs and symptoms have been present for 1 day and indicates a pain score of Nonresponsive. MEDICAL/SURGICAL HISTORY: Diabetes mellitus type II. Myocardial infarction. Heroin abuse, necr otizing fascitis and bipolar disorder. . Ankle surgery, nephrostomy and spinal surgery. [place] [facility] [place]. . TECHNIQUE: Anterior dynamic imaging as well as delayed static imaging. DOSE: 25.1 mCi Tc99m DTPA IV The diagnosis of brain is clinical and the results of this test should be taken in the content of clinical and electrocephalographic data. FINDINGS: Imaging of the head was performed and documents normal blood flow within the carotid arteries bilater ally. However, no intracerebral blood flow is visualized. There is a hot nose sign. Delayed images al so demonstrate no sagittal sinus activity. CONCLUSION: No intracerebral blood flow is visualized consistent with imaging findings for brain . Electronically signed by: Bill Gaxiola MD Board Certified Radiologist 08/04/2018 11:17 AM EST
--- NOTE | 2018-08-04 12:33 | P.PNPAL ---
Reason for Visit Reason for visit: a. To assist with evaluation and management of symptoms including: dyspnea b. To assist medical decision maker(s) with: better understanding of current medical conditions; weighing benefits/burdens of medical treatment options; making medical treatment decisions. Subjective Subjective/Interval History: Follow-up visit for symptom management and clarification of medical treatment goals on this 47-year-old female status post out of hospital cardiac arrest. Patient seen and assessed in the intensive care unit, room 517. Patient's and brother are at the bedside. Patient remains unresponsive on no sedation and intubated on mechanical ventilation. Patient's son (Garret) should be arriving from [place] this afternoon. Medical update provided to the family. Patient is being taken to the nuclear medicine for a brain flow study; the family is awaiting results. Nursing reports the patient's daughter (Marianna) arrived earlier today stating her mother was not legally to [facility]. A copy of their marriage lisc. was provided to the hospital. Additionally, Palliative care was able to locate the couples marriage license on [facility] website. Neurology is following. Per Dr. Hernández's note, patient has no brainstem reflexes on exam. EEG on 08/03/2018 congruent with severe encephalopathy with only minimal EEG activity present. ADDENDUM: Brain flow study showed no intracerebral blood flow, consistent with imaging findings for brain . Dr. Brewer is aware. Family/Friend Interactions: See interval history Advance Directives Documented care wishes:: No known written advanced directives were completed. Objective Vital Signs: Vital Signs 08/03/18 13:00 08/03/18 14:00 08/03/18 15:00 Temperature Pulse Rate 119 H 120 H 113 H Respiratory Rate 16 16 19 Blood Pressure Pulse Oximetry 100 100 100 08/03/18 15:15 08/03/18 15:38 08/03/18 16:00 Temperature Pulse Rate 110 H 108 H Respiratory Rate 21 14 14 Blood Pressure 96/48 L 93/64 L Pulse Oximetry 100 100 100 08/03/18 17:00 08/03/18 18:00 08/03/18 19:00 Temperature 100 F H Pulse Rate 97 H 95 H 93 H Respiratory Rate 14 14 13 Blood Pressure Pulse Oximetry 100 100 100 08/03/18 19:23 08/03/18 20:00 08/03/18 21:00 Temperature Pulse Rate 92 H 93 H 94 H Respiratory Rate 13 13 13 Blood Pressure 128/72 Pulse Oximetry 100 100 100 08/03/18 22:00 08/03/18 23:00 08/03/18 23:02 Temperature Pulse Rate 95 H 94 H 95 H Respiratory Rate 13 13 13 Blood Pressure Pulse Oximetry 100 100 100 08/04/18 00:00 08/04/18 01:00 08/04/18 02:00 Temperature 96.8 F L Pulse Rate 97 H 103 H 105 H Respiratory Rate 13 13 13 Blood Pressure Pulse Oximetry 100 100 100 08/04/18 03:00 08/04/18 03:16 08/04/18 04:00 Temperature 96.9 F L 96.9 F L Pulse Rate 104 H 104 H 105 H Respiratory Rate 13 13 14 Blood Pressure 141/85 H Pulse Oximetry 100 100 100 08/04/18 05:00 08/04/18 05:59 08/04/18 06:00 Temperature 97.1 F L 97.2 F L Pulse Rate 107 H 105 H 105 H Respiratory Rate 13 13 Blood Pressure Pulse Oximetry 100 100 08/04/18 07:00 08/04/18 07:50 08/04/18 07:51 Temperature Pulse Rate 105 H 105 H Respiratory Rate 13 13 13 Blood Pressure Pulse Oximetry 100 100 08/04/18 08:00 08/04/18 09:00 08/04/18 10:00 Temperature 97.3 F L Pulse Rate 106 H 107 H 106 H Respiratory Rate 13 13 13 Blood Pressure 148/94 H Pulse Oximetry 100 100 100 08/04/18 10:21 08/04/18 11:00 08/04/18 11:04 Temperature Pulse Rate 105 H 104 H Respiratory Rate 9 L 17 Blood Pressure 131/81 Pulse Oximetry 100 100 100 08/04/18 11:05 08/04/18 11:15 08/04/18 11:30 Temperature Pulse Rate 106 H 106 H 105 H Respiratory Rate 13 13 13 Blood Pressure 131/81 130/78 127/77 Pulse Oximetry 100 100 100 08/04/18 11:45 08/04/18 12:00 08/04/18 12:02 Temperature 97.2 F L Pulse Rate 105 H 104 H 104 H Respiratory Rate 13 13 13 Blood Pressure 128/74 116/74 Pulse Oximetry 100 100 100 Intake & Output 08/03/18 08/04/18 08/04/18 18:59 06:59 18:59 Intake Total 1340 / 1340 1999 523 / 523 Output Total 666 / 666 2440 / 2440 713 / 713 Balance 674 / 674 -440 / -440 -190 / -190 Weight 71.5 kg Intake: IV 1340 / 1340 1999 523 / 523 NS Inj 1,000 ML @ 125 mls/hr IV 625 / 625 1999 523 / 523 .CONT .Q8H HUYEN Rx#:[id number] Cardene Inj 25 MG In NS Inj 240 435 / 435 ML @ 5 MG/HR 50 mls/hr IV.CONT TITRATE PRN Rx#:[id number] Glycophos Inj 30 MMOL In NS Inj 280 / 280 250 ML @ 42 mls/hr IV.SIG UNSCH PRN Rx#:[id number] Output: Urine Amount (Catheter) 666 / 666 2440 / 2440 713 / 713 Indwelling Urethral Catheter 666 / 666 2440 / 2440 713 / 713 Physical Exam: CONSTITUTIONAL/GENERAL: This is non-sedated, female patient who is intubated on mechanical ventilation. TUBES/LINES/DRAINS: ET tube, OGT, PIV, arterial line SKIN: No generalized rash. no wounds seen anteriorly. Skin temperature appropriate. Not diaphoretic. HEAD: Atraumatic. Normocephalic. EYES: Pupils are nonreactive. No scleral icterus. No injection or drainage. ENT: Nose without bleeding or purulent drainage. Mucous membranes moist and pink NECK: Orally intubated CARDIOVASCULAR: Intermittently tachycardic. Hypotensive. RESPIRATORY/CHEST: Intubated on mechanical ventilation. Patient is not breathing over the vent. Breath sounds diminished bilaterally. GASTROINTESTINAL: Abdomen soft, non-tender, nondistended. No guarding. Bowel sounds present. GENITOURINARY: Without palpable bladder distension. Muhammad catheter in place. MUSCULOSKELETAL: Extremities without clubbing, cyanosis, or edema. No mottling or clubbing. NEUROLOGICAL: Unresponsive. No corneal reflex. No cough/gag. Patient does not withdraw to noxious stimuli. PSYCHIATRIC: Unable to assess given current clinical condition Diagnostic Tests Laboratory: Laboratory Results - last 72 hr 08/02/18 08/02/1819 19:20 19:20 19:20 WBC 9.2 RBC 2.38 L Hgb 7.3 L Hct 23.7 L MCV 99.3 MCH 30.8 MCHC 31.0 L RDW 17.2 Plt Count 358 MPV 8.1 Prelim Diff (Auto) Neut % (Auto) 76.3 H Lymph % (Auto) 19.1 [place] % (Auto) 2.6 Eos % (Auto) 1.4 Baso % (Auto) 0.6 Neut # (Auto) 7.0 Lymph # (Auto) 1.8 [place] # (Auto) 0.2 Eos # (Auto) 0.1 Baso # (Auto) 0.1 WBC Differential . Seg Neuts % (Manual) Band Neuts % (Manual) Lymphocytes % (Manual) Abs Neuts (Manual) Differential Comment Auto diff final Platelet Estimate Platelet Morphology PT 10.7 INR 1.1 APTT 29.2 Puncture Site Patient Temperature O2 Saturation ABG pH ABG pCO2 ABG pO2 ABG HCO3 ABG O2 Content ABG Base Excess ABG Methemoglobin Hemoglobin Carboxyhemoglobin O2 Delivery Device Vent Setting Inspired O2 Critical Value Sodium 131 L Potassium 5.1 Chloride 100 Carbon Dioxide 14.5 L Anion Gap 17 H BUN 30 H Creatinine 1.85 H Estimated GFR 29 L POC Glucose Random Glucose 410 H Osmolality Lactic Acid Calcium 7.8 L Calcium Adj for Albumin Phosphorus Magnesium 2.2 Total Bilirubin 0.3 GGT AST 185 H ALT 59 H Alkaline Phosphatase 324 H Troponin I 0.04 Total Protein 6.7 Albumin 3.1 L Beta HCG, Quant Urine Color Urine Clarity Urine pH Ur Specific [place] Urine Protein Urine Glucose (UA) Urine Ketones Urine Occult Blood Urine Nitrate Urine Bilirubin Urine Urobilinogen Ur Leukocyte Esterase Urine RBC Urine WBC Ur Squamous Epith Cells Micro UA Comment Ur Microscopic Review Urine Culture Comments Urine Osmolality Ur Random Sodium Nasal Screen MRSA (PCR) Salicylates Urine Opiates Screen Acetaminophen Ur Barbiturates Screen Ur Amphetamine Screen Ur Amphetamines Screen U Benzodiazepines Scrn Urine Cocaine Screen U Cannabinoids Screen Serum Alcohol Hepatitis A IgM Ab Hep Bs Antigen Hep B Core IgM Ab Hep C IgG Ab 08/02/18 08/02/18 08/02/18 19:20 19:20 19:20 WBC RBC Hgb Hct MCV MCH MCHC RDW Plt Count MPV Prelim Diff (Auto) Neut % (Auto) Lymph % (Auto) [place] % (Auto) Eos % (Auto) Baso % (Auto) Neut # (Auto) Lymph # (Auto) [place] # (Auto) Eos # (Auto) Baso # (Auto) WBC Differential Seg Neuts % (Manual) Band Neuts % (Manual) Lymphocytes % (Manual) Abs Neuts (Manual) Differential Comment Platelet Estimate Platelet Morphology PT INR APTT Puncture Site Patient Temperature O2 Saturation ABG pH ABG pCO2 ABG pO2 ABG HCO3 ABG O2 Content ABG Base Excess ABG Methemoglobin Hemoglobin Carboxyhemoglobin O2 Delivery Device Vent Setting Inspired O2 Critical Value Sodium Potassium Chloride Carbon Dioxide Anion Gap BUN Creatinine Estimated GFR POC Glucose Random Glucose Osmolality Lactic Acid 8.0 H* Calcium Calcium Adj for Albumin Phosphorus Magnesium Total Bilirubin GGT AST ALT Alkaline Phosphatase Troponin I Total Protein Albumin Beta HCG, Quant Urine Color Yellow Urine Clarity Hazy H Urine pH 6.0 Ur Specific [place] 1.011 Urine Protein 100 H Urine Glucose (UA) 500 or greater Urine Ketones Negative Urine Occult Blood Small H Urine Nitrate Negative Urine Bilirubin Negative Urine Urobilinogen Less than 2 Ur Leukocyte Esterase Negative Urine RBC 22 H Urine WBC 10 H Ur Squamous Epith Cells 1 Micro UA Comment Cath-culture ind Ur Microscopic Review Not Reportable Urine Culture Comments Cath-cult indicated Urine Osmolality Ur Random Sodium Nasal Screen MRSA (PCR) Salicylates Urine Opiates Screen Neg Acetaminophen Ur Barbiturates Screen Neg Ur Amphetamine Screen Ur Amphetamines Screen Neg U Benzodiazepines Scrn Neg Urine Cocaine Screen Pos H U Cannabinoids Screen Neg Serum Alcohol Hepatitis A IgM Ab Hep Bs Antigen Hep B Core IgM Ab Hep C IgG Ab 08/02/18 08/02/18 08/02/18 19:20 19:20 20:29 WBC RBC Hgb Hct MCV MCH MCHC RDW Plt Count MPV Prelim Diff (Auto) Neut % (Auto) Lymph % (Auto) [place] % (Auto) Eos % (Auto) Baso % (Auto) Neut # (Auto) Lymph # (Auto) [place] # (Auto) Eos # (Auto) Baso # (Auto) WBC Differential Seg Neuts % (Manual) Band Neuts % (Manual) Lymphocytes % (Manual) Abs Neuts (Manual) Differential Comment Platelet Estimate Platelet Morphology PT INR APTT Puncture Site Patient Temperature O2 Saturation ABG pH ABG pCO2 ABG pO2 ABG HCO3 ABG O2 Content ABG Base Excess ABG Methemoglobin Hemoglobin Carboxyhemoglobin O2 Delivery Device Vent Setting Inspired O2 Critical Value Sodium Potassium Chloride Carbon Dioxide Anion Gap BUN Creatinine Estimated GFR POC Glucose 373 H Random Glucose Osmolality Lactic Acid Calcium Calcium Adj for Albumin Phosphorus Magnesium Total Bilirubin GGT AST ALT Alkaline Phosphatase Troponin I Total Protein Albumin Beta HCG, Quant Urine Color Urine Clarity Urine pH Ur Specific [place] Urine Protein Urine Glucose (UA) Urine Ketones Urine Occult Blood Urine Nitrate Urine Bilirubin Urine Urobilinogen Ur Leukocyte Esterase Urine RBC Urine WBC Ur Squamous Epith Cells Micro UA Comment Ur Microscopic Review Urine Culture Comments Urine Osmolality Ur Random Sodium Nasal Screen MRSA (PCR) Salicylates Less than 1.7 L Urine Opiates Screen Acetaminophen Less than 2.0 L Ur Barbiturates Screen Ur Amphetamine Screen Ur Amphetamines Screen U Benzodiazepines Scrn Urine Cocaine Screen U Cannabinoids Screen Serum Alcohol 4 Hepatitis A IgM Ab Hep Bs Antigen Hep B Core IgM Ab Hep C IgG Ab 08/02/18 08/02/18 08/02/18 20:35 21:36 21:36 WBC RBC Hgb Hct MCV MCH MCHC RDW Plt Count MPV Prelim Diff (Auto) Neut % (Auto) Lymph % (Auto) [place] % (Auto) Eos % (Auto) Baso % (Auto) Neut # (Auto) Lymph # (Auto) [place] # (Auto) Eos # (Auto) Baso # (Auto) WBC Differential Seg Neuts % (Manual) Band Neuts % (Manual) Lymphocytes % (Manual) Abs Neuts (Manual) Differential Comment Platelet Estimate Platelet Morphology PT INR APTT Puncture Site Art line Patient Temperature 98.6 O2 Saturation 95 ABG pH 7.18 L* ABG pCO2 42 ABG pO2 135 H ABG HCO3 15 L* ABG O2 Content 13.2 ABG Base Excess -11.7 L ABG Methemoglobin 1.8 Hemoglobin 9.6 L Carboxyhemoglobin 0.5 O2 Delivery Device Ventilator Vent Setting Prvc / ac / Inspired O2 50 Critical Value Yes Sodium Potassium Chloride Carbon Dioxide Anion Gap BUN Creatinine Estimated GFR POC Glucose Random Glucose Osmolality 313 H Lactic Acid Calcium Calcium Adj for Albumin Phosphorus Magnesium Total Bilirubin GGT 462 H AST ALT Alkaline Phosphatase Troponin I Total Protein Albumin Beta HCG, Quant Urine Color Urine Clarity Urine pH Ur Specific [place] Urine Protein Urine Glucose (UA) Urine Ketones Urine Occult Blood Urine Nitrate Urine Bilirubin Urine Urobilinogen Ur Leukocyte Esterase Urine RBC Urine WBC Ur Squamous Epith Cells Micro UA Comment Ur Microscopic Review Urine Culture Comments Urine Osmolality Ur Random Sodium Nasal Screen MRSA (PCR) Salicylates Urine Opiates Screen Acetaminophen Ur Barbiturates Screen Ur Amphetamine Screen Ur Amphetamines Screen U Benzodiazepines Scrn Urine Cocaine Screen U Cannabinoids Screen Serum Alcohol Hepatitis A IgM Ab Nonreactive Hep Bs Antigen Nonreactive Hep B Core IgM Ab Nonreactive Hep C IgG Ab Nonreactive 08/02/18 08/02/18 08/02/18 21:36 22:45 22:45 WBC RBC Hgb Hct MCV MCH MCHC RDW Plt Count MPV Prelim Diff (Auto) Neut % (Auto) Lymph % (Auto) [place] % (Auto) Eos % (Auto) Baso % (Auto) Neut # (Auto) Lymph # (Auto) [place] # (Auto) Eos # (Auto) Baso # (Auto) WBC Differential Seg Neuts % (Manual) Band Neuts % (Manual) Lymphocytes % (Manual) Abs Neuts (Manual) Differential Comment Platelet Estimate Platelet Morphology PT INR APTT Puncture Site Patient Temperature O2 Saturation ABG pH ABG pCO2 ABG pO2 ABG HCO3 ABG O2 Content ABG Base Excess ABG Methemoglobin Hemoglobin Carboxyhemoglobin O2 Delivery Device Vent Setting Inspired O2 Critical Value Sodium Potassium Chloride Carbon Dioxide Anion Gap BUN Creatinine Estimated GFR POC Glucose Random Glucose Osmolality Lactic Acid 4.2 H* Calcium Calcium Adj for Albumin Phosphorus Magnesium Total Bilirubin GGT AST ALT Alkaline Phosphatase Troponin I Total Protein Albumin Beta HCG, Quant Urine Color Urine Clarity Urine pH Ur Specific [place] Urine Protein Urine Glucose (UA) Urine Ketones Urine Occult Blood Urine Nitrate Urine Bilirubin Urine Urobilinogen Ur Leukocyte Esterase Urine RBC Urine WBC Ur Squamous Epith Cells Micro UA Comment Ur Microscopic Review Urine Culture Comments Urine Osmolality Ur Random Sodium Nasal Screen MRSA (PCR) Not detected Salicylates Urine Opiates Screen Neg Acetaminophen Ur Barbiturates Screen Neg Ur Amphetamine Screen Neg Ur Amphetamines Screen U Benzodiazepines Scrn Neg Urine Cocaine Screen Pos H U Cannabinoids Screen Neg Serum Alcohol Hepatitis A IgM Ab Hep Bs Antigen Hep B Core IgM Ab Hep C IgG Ab 08/02/18 08/02/18 08/02/18 22:45 22:45 23:00 WBC RBC Hgb Hct MCV MCH MCHC RDW Plt Count MPV Prelim Diff (Auto) Neut % (Auto) Lymph % (Auto) [place] % (Auto) Eos % (Auto) Baso % (Auto) Neut # (Auto) Lymph # (Auto) [place] # (Auto) Eos # (Auto) Baso # (Auto) WBC Differential Seg Neuts % (Manual) Band Neuts % (Manual) Lymphocytes % (Manual) Abs Neuts (Manual) Differential Comment Platelet Estimate Platelet Morphology PT INR APTT Puncture Site Patient Temperature O2 Saturation ABG pH ABG pCO2 ABG pO2 ABG HCO3 ABG O2 Content ABG Base Excess ABG Methemoglobin Hemoglobin Carboxyhemoglobin O2 Delivery Device Vent Setting Inspired O2 Critical Value Sodium Potassium Chloride Carbon Dioxide Anion Gap BUN Creatinine Estimated GFR POC Glucose Random Glucose Osmolality Lactic Acid 3.5 H Calcium Calcium Adj for Albumin Phosphorus Magnesium Total Bilirubin GGT AST ALT Alkaline Phosphatase Troponin I Total Protein Albumin Beta HCG, Quant Urine Color Urine Clarity Urine pH Ur Specific [place] Urine Protein Urine Glucose (UA) Urine Ketones Urine Occult Blood Urine Nitrate Urine Bilirubin Urine Urobilinogen Ur Leukocyte Esterase Urine RBC Urine WBC Ur Squamous Epith Cells Micro UA Comment Ur Microscopic Review Urine Culture Comments Urine Osmolality 489 Ur Random Sodium 41 Nasal Screen MRSA (PCR) Salicylates Urine Opiates Screen Acetaminophen Ur Barbiturates Screen Ur Amphetamine Screen Ur Amphetamines Screen U Benzodiazepines Scrn Urine Cocaine Screen U Cannabinoids Screen Serum Alcohol Hepatitis A IgM Ab Hep Bs Antigen Hep B Core IgM Ab Hep C IgG Ab 08/02/18 08/03/18 08/03/18 23:30 04:34 05:01 WBC RBC Hgb Hct MCV MCH MCHC RDW Plt Count MPV Prelim Diff (Auto) Neut % (Auto) Lymph % (Auto) [place] % (Auto) Eos % (Auto) Baso % (Auto) Neut # (Auto) Lymph # (Auto) [place] # (Auto) Eos # (Auto) Baso # (Auto) WBC Differential Seg Neuts % (Manual) Band Neuts % (Manual) Lymphocytes % (Manual) Abs Neuts (Manual) Differential Comment Platelet Estimate Platelet Morphology PT 10.8 INR 1.1 APTT Puncture Site Art line Patient Temperature 98.6 O2 Saturation 97 ABG pH 7.53 H* ABG pCO2 25 L ABG pO2 175 H ABG HCO3 21 L ABG O2 Content 13.0 ABG Base Excess -1.5 ABG Methemoglobin 1.7 Hemoglobin 9.3 L Carboxyhemoglobin 1.0 O2 Delivery Device Ventilator Vent Setting Prvc / ac / Inspired O2 35 Critical Value Yes Sodium Potassium Chloride Carbon Dioxide Anion Gap BUN Creatinine Estimated GFR POC Glucose 315 H Random Glucose Osmolality Lactic Acid Calcium Calcium Adj for Albumin Phosphorus Magnesium Total Bilirubin GGT AST ALT Alkaline Phosphatase Troponin I Total Protein Albumin Beta HCG, Quant Urine Color Urine Clarity Urine pH Ur Specific [place] Urine Protein Urine Glucose (UA) Urine Ketones Urine Occult Blood Urine Nitrate Urine Bilirubin Urine Urobilinogen Ur Leukocyte Esterase Urine RBC Urine WBC Ur Squamous Epith Cells Micro UA Comment Ur Microscopic Review Urine Culture Comments Urine Osmolality Ur Random Sodium Nasal Screen MRSA (PCR) Salicylates Urine Opiates Screen Acetaminophen Ur Barbiturates Screen Ur Amphetamine Screen Ur Amphetamines Screen U Benzodiazepines Scrn Urine Cocaine Screen U Cannabinoids Screen Serum Alcohol Hepatitis A IgM Ab Hep Bs Antigen Hep B Core IgM Ab Hep C IgG Ab 08/03/18 08/03/18 08/03/18 06:16 07:40 07:40 WBC 17.1 H D RBC 3.22 L Hgb 9.9 L D Hct 29.7 L MCV 92.5 D MCH 30.8 MCHC 33.3 RDW 17.1 Plt Count 388 MPV 7.6 Prelim Diff (Auto) Slide review pending Neut % (Auto) 90.2 H Lymph % (Auto) 5.6 L [place] % (Auto) 4.0 Eos % (Auto) 0.1 Baso % (Auto) 0.1 Neut # (Auto) 15.4 H Lymph # (Auto) 1.0 [place] # (Auto) 0.7 Eos # (Auto) 0.0 Baso # (Auto) 0.0 WBC Differential Manual diff final Seg Neuts % (Manual) 84 H Band Neuts % (Manual) 11 H Lymphocytes % (Manual) 5 L Abs Neuts (Manual) 16.2 H Differential Comment . Platelet Estimate Normal Platelet Morphology Normal PT INR APTT Puncture Site Patient Temperature O2 Saturation ABG pH ABG pCO2 ABG pO2 ABG HCO3 ABG O2 Content ABG Base Excess ABG Methemoglobin Hemoglobin Carboxyhemoglobin O2 Delivery Device Vent Setting Inspired O2 Critical Value Sodium 145 D Potassium 3.5 D Chloride 111 H D Carbon Dioxide 22.9 Anion Gap 11 BUN 33 H Creatinine 1.52 H Estimated GFR 37 L POC Glucose 135 H Random Glucose 169 H D Osmolality Lactic Acid Calcium 7.2 L* Calcium Adj for Albumin 7.9 L Phosphorus 2.2 L Magnesium 2.0 Total Bilirubin 0.2 GGT AST 144 H ALT 63 H Alkaline Phosphatase 293 H Troponin I Total Protein 6.9 Albumin 3.1 L Beta HCG, Quant Urine Color Urine Clarity Urine pH Ur Specific [place] Urine Protein Urine Glucose (UA) Urine Ketones Urine Occult Blood Urine Nitrate Urine Bilirubin Urine Urobilinogen Ur Leukocyte Esterase Urine RBC Urine WBC Ur Squamous Epith Cells Micro UA Comment Ur Microscopic Review Urine Culture Comments Urine Osmolality Ur Random Sodium Nasal Screen MRSA (PCR) Salicylates Urine Opiates Screen Acetaminophen Ur Barbiturates Screen Ur Amphetamine Screen Ur Amphetamines Screen U Benzodiazepines Scrn Urine Cocaine Screen U Cannabinoids Screen Serum Alcohol Hepatitis A IgM Ab Hep Bs Antigen Hep B Core IgM Ab Hep C IgG Ab 08/03/18 08/03/18 08/03/18 08:00 11:38 17:49 WBC RBC Hgb Hct MCV MCH MCHC RDW Plt Count MPV Prelim Diff (Auto) Neut % (Auto) Lymph % (Auto) [place] % (Auto) Eos % (Auto) Baso % (Auto) Neut # (Auto) Lymph # (Auto) [place] # (Auto) Eos # (Auto) Baso # (Auto) WBC Differential Seg Neuts % (Manual) Band Neuts % (Manual) Lymphocytes % (Manual) Abs Neuts (Manual) Differential Comment Platelet Estimate Platelet Morphology PT INR APTT Puncture Site Art line Patient Temperature 98.6 O2 Saturation 97 ABG pH 7.53 H* ABG pCO2 27 L ABG pO2 159 H ABG HCO3 22 ABG O2 Content 13.8 ABG Base Excess -0.4 ABG Methemoglobin 1.8 Hemoglobin 9.9 L Carboxyhemoglobin 0.9 O2 Delivery Device Ventilator Vent Setting Prvc/[id number] Inspired O2 35 Critical Value Yes Sodium Potassium Chloride Carbon Dioxide Anion Gap BUN Creatinine Estimated GFR POC Glucose 86 26 L* Random Glucose Osmolality Lactic Acid Calcium Calcium Adj for Albumin Phosphorus Magnesium Total Bilirubin GGT AST ALT Alkaline Phosphatase Troponin I Total Protein Albumin Beta HCG, Quant Urine Color Urine Clarity Urine pH Ur Specific [place] Urine Protein Urine Glucose (UA) Urine Ketones Urine Occult Blood Urine Nitrate Urine Bilirubin Urine Urobilinogen Ur Leukocyte Esterase Urine RBC Urine WBC Ur Squamous Epith Cells Micro UA Comment Ur Microscopic Review Urine Culture Comments Urine Osmolality Ur Random Sodium Nasal Screen MRSA (PCR) Salicylates Urine Opiates Screen Acetaminophen Ur Barbiturates Screen Ur Amphetamine Screen Ur Amphetamines Screen U Benzodiazepines Scrn Urine Cocaine Screen U Cannabinoids Screen Serum Alcohol Hepatitis A IgM Ab Hep Bs Antigen Hep B Core IgM Ab Hep C IgG Ab 08/03/18 08/03/18 08/03/18 17:52 18:15 19:52 WBC RBC Hgb Hct MCV MCH MCHC RDW Plt Count MPV Prelim Diff (Auto) Neut % (Auto) Lymph % (Auto) [place] % (Auto) Eos % (Auto) Baso % (Auto) Neut # (Auto) Lymph # (Auto) [place] # (Auto) Eos # (Auto) Baso # (Auto) WBC Differential Seg Neuts % (Manual) Band Neuts % (Manual) Lymphocytes % (Manual) Abs Neuts (Manual) Differential Comment Platelet Estimate Platelet Morphology PT INR APTT Puncture Site Patient Temperature O2 Saturation ABG pH ABG pCO2 ABG pO2 ABG HCO3 ABG O2 Content ABG Base Excess ABG Methemoglobin Hemoglobin Carboxyhemoglobin O2 Delivery Device Vent Setting Inspired O2 Critical Value Sodium Potassium Chloride Carbon Dioxide Anion Gap BUN Creatinine Estimated GFR POC Glucose 31 L* 170 H 142 H Random Glucose Osmolality Lactic Acid Calcium Calcium Adj for Albumin Phosphorus Magnesium Total Bilirubin GGT AST ALT Alkaline Phosphatase Troponin I Total Protein Albumin Beta HCG, Quant Urine Color Urine Clarity Urine pH Ur Specific [place] Urine Protein Urine Glucose (UA) Urine Ketones Urine Occult Blood Urine Nitrate Urine Bilirubin Urine Urobilinogen Ur Leukocyte Esterase Urine RBC Urine WBC Ur Squamous Epith Cells Micro UA Comment Ur Microscopic Review Urine Culture Comments Urine Osmolality Ur Random Sodium Nasal Screen MRSA (PCR) Salicylates Urine Opiates Screen Acetaminophen Ur Barbiturates Screen Ur Amphetamine Screen Ur Amphetamines Screen U Benzodiazepines Scrn Urine Cocaine Screen U Cannabinoids Screen Serum Alcohol Hepatitis A IgM Ab Hep Bs Antigen Hep B Core IgM Ab Hep C IgG Ab 08/03/18 08/03/18 08/03/18 21:51 22:54 23:51 WBC RBC Hgb Hct MCV MCH MCHC RDW Plt Count MPV Prelim Diff (Auto) Neut % (Auto) Lymph % (Auto) [place] % (Auto) Eos % (Auto) Baso % (Auto) Neut # (Auto) Lymph # (Auto) [place] # (Auto) Eos # (Auto) Baso # (Auto) WBC Differential Seg Neuts % (Manual) Band Neuts % (Manual) Lymphocytes % (Manual) Abs Neuts (Manual) Differential Comment Platelet Estimate Platelet Morphology PT INR APTT Puncture Site Patient Temperature O2 Saturation ABG pH ABG pCO2 ABG pO2 ABG HCO3 ABG O2 Content ABG Base Excess ABG Methemoglobin Hemoglobin Carboxyhemoglobin O2 Delivery Device Vent Setting Inspired O2 Critical Value Sodium Potassium Chloride Carbon Dioxide Anion Gap BUN Creatinine Estimated GFR POC Glucose 180 H 224 H 230 H Random Glucose Osmolality Lactic Acid Calcium Calcium Adj for Albumin Phosphorus Magnesium Total Bilirubin GGT AST ALT Alkaline Phosphatase Troponin I Total Protein Albumin Beta HCG, Quant Urine Color Urine Clarity Urine pH Ur Specific [place] Urine Protein Urine Glucose (UA) Urine Ketones Urine Occult Blood Urine Nitrate Urine Bilirubin Urine Urobilinogen Ur Leukocyte Esterase Urine RBC Urine WBC Ur Squamous Epith Cells Micro UA Comment Ur Microscopic Review Urine Culture Comments Urine Osmolality Ur Random Sodium Nasal Screen MRSA (PCR) Salicylates Urine Opiates Screen Acetaminophen Ur Barbiturates Screen Ur Amphetamine Screen Ur Amphetamines Screen U Benzodiazepines Scrn Urine Cocaine Screen U Cannabinoids Screen Serum Alcohol Hepatitis A IgM Ab Hep Bs Antigen Hep B Core IgM Ab Hep C IgG Ab 08/04/18 08/04/18 08/04/18 03:52 04:00 04:00 WBC 13.4 H RBC 2.78 L Hgb 8.5 L Hct 26.3 L MCV 94.8 MCH 30.5 MCHC 32.2 RDW 18.2 H Plt Count 293 MPV 7.6 Prelim Diff (Auto) Neut % (Auto) 84.7 H Lymph % (Auto) 8.8 L [place] % (Auto) 6.3 Eos % (Auto) 0.0 Baso % (Auto) 0.2 Neut # (Auto) 11.4 H Lymph # (Auto) 1.2 [place] # (Auto) 0.8 Eos # (Auto) 0.0 Baso # (Auto) 0.0 WBC Differential . Seg Neuts % (Manual) Band Neuts % (Manual) Lymphocytes % (Manual) Abs Neuts (Manual) Differential Comment Auto diff final Platelet Estimate Platelet Morphology PT 11.9 H INR 1.2 APTT Puncture Site Patient Temperature O2 Saturation ABG pH ABG pCO2 ABG pO2 ABG HCO3 ABG O2 Content ABG Base Excess ABG Methemoglobin Hemoglobin Carboxyhemoglobin O2 Delivery Device Vent Setting Inspired O2 Critical Value Sodium Potassium Chloride Carbon Dioxide Anion Gap BUN Creatinine Estimated GFR POC Glucose 239 H Random Glucose Osmolality Lactic Acid Calcium Calcium Adj for Albumin Phosphorus Magnesium Total Bilirubin GGT AST ALT Alkaline Phosphatase Troponin I Total Protein Albumin Beta HCG, Quant Urine Color Urine Clarity Urine pH Ur Specific [place] Urine Protein Urine Glucose (UA) Urine Ketones Urine Occult Blood Urine Nitrate Urine Bilirubin Urine Urobilinogen Ur Leukocyte Esterase Urine RBC Urine WBC Ur Squamous Epith Cells Micro UA Comment Ur Microscopic Review Urine Culture Comments Urine Osmolality Ur Random Sodium Nasal Screen MRSA (PCR) Salicylates Urine Opiates Screen Acetaminophen Ur Barbiturates Screen Ur Amphetamine Screen Ur Amphetamines Screen U Benzodiazepines Scrn Urine Cocaine Screen U Cannabinoids Screen Serum Alcohol Hepatitis A IgM Ab Hep Bs Antigen Hep B Core IgM Ab Hep C IgG Ab 08/04/18 08/04/18 08/04/18 04:15 05:48 07:52 WBC RBC Hgb Hct MCV MCH MCHC RDW Plt Count MPV Prelim Diff (Auto) Neut % (Auto) Lymph % (Auto) [place] % (Auto) Eos % (Auto) Baso % (Auto) Neut # (Auto) Lymph # (Auto) [place] # (Auto) Eos # (Auto) Baso # (Auto) WBC Differential Seg Neuts % (Manual) Band Neuts % (Manual) Lymphocytes % (Manual) Abs Neuts (Manual) Differential Comment Platelet Estimate Platelet Morphology PT INR APTT Puncture Site Art line Patient Temperature 98.6 O2 Saturation 97 ABG pH 7.43 H ABG pCO2 32 L ABG pO2 162 H ABG HCO3 21 L ABG O2 Content 12.5 ABG Base Excess -2.5 L ABG Methemoglobin 1.5 Hemoglobin 8.9 L Carboxyhemoglobin 1.0 O2 Delivery Device Ventilator Vent Setting 13/500/it1.0/5peep Inspired O2 35 Critical Value No Sodium Potassium Chloride Carbon Dioxide Anion Gap BUN Creatinine Estimated GFR POC Glucose 263 H 237 H Random Glucose Osmolality Lactic Acid Calcium Calcium Adj for Albumin Phosphorus Magnesium Total Bilirubin GGT AST ALT Alkaline Phosphatase Troponin I Total Protein Albumin Beta HCG, Quant Urine Color Urine Clarity Urine pH Ur Specific [place] Urine Protein Urine Glucose (UA) Urine Ketones Urine Occult Blood Urine Nitrate Urine Bilirubin Urine Urobilinogen Ur Leukocyte Esterase Urine RBC Urine WBC Ur Squamous Epith Cells Micro UA Comment Ur Microscopic Review Urine Culture Comments Urine Osmolality Ur Random Sodium Nasal Screen MRSA (PCR) Salicylates Urine Opiates Screen Acetaminophen Ur Barbiturates Screen Ur Amphetamine Screen Ur Amphetamines Screen U Benzodiazepines Scrn Urine Cocaine Screen U Cannabinoids Screen Serum Alcohol Hepatitis A IgM Ab Hep Bs Antigen Hep B Core IgM Ab Hep C IgG Ab 08/04/18 08/04/18 08/04/18 08:09 08:09 09:54 WBC RBC Hgb Hct MCV MCH MCHC RDW Plt Count MPV Prelim Diff (Auto) Neut % (Auto) Lymph % (Auto) [place] % (Auto) Eos % (Auto) Baso % (Auto) Neut # (Auto) Lymph # (Auto) [place] # (Auto) Eos # (Auto) Baso # (Auto) WBC Differential Seg Neuts % (Manual) Band Neuts % (Manual) Lymphocytes % (Manual) Abs Neuts (Manual) Differential Comment Platelet Estimate Platelet Morphology PT INR APTT Puncture Site Patient Temperature O2 Saturation ABG pH ABG pCO2 ABG pO2 ABG HCO3 ABG O2 Content ABG Base Excess ABG Methemoglobin Hemoglobin Carboxyhemoglobin O2 Delivery Device Vent Setting Inspired O2 Critical Value Sodium 162 H* D Potassium 3.6 Chloride 128 H D Carbon Dioxide 23.1 Anion Gap 11 BUN 27 H Creatinine 1.45 H Estimated GFR 39 L POC Glucose 246 H Random Glucose 249 H Osmolality Lactic Acid Calcium 7.7 L Calcium Adj for Albumin Phosphorus 3.5 D Magnesium 2.4 Total Bilirubin 0.2 GGT AST 143 H ALT 61 H Alkaline Phosphatase 225 H Troponin I Total Protein 6.5 Albumin 2.6 L Beta HCG, Quant Less than 1 Urine Color Urine Clarity Urine pH Ur Specific [place] Urine Protein Urine Glucose (UA) Urine Ketones Urine Occult Blood Urine Nitrate Urine Bilirubin Urine Urobilinogen Ur Leukocyte Esterase Urine RBC Urine WBC Ur Squamous Epith Cells Micro UA Comment Ur Microscopic Review Urine Culture Comments Urine Osmolality Ur Random Sodium Nasal Screen MRSA (PCR) Salicylates Urine Opiates Screen Acetaminophen Ur Barbiturates Screen Ur Amphetamine Screen Ur Amphetamines Screen U Benzodiazepines Scrn Urine Cocaine Screen U Cannabinoids Screen Serum Alcohol Hepatitis A IgM Ab Hep Bs Antigen Hep B Core IgM Ab Hep C IgG Ab 08/04/18 11:48 WBC RBC Hgb Hct MCV MCH MCHC RDW Plt Count MPV Prelim Diff (Auto) Neut % (Auto) Lymph % (Auto) [place] % (Auto) Eos % (Auto) Baso % (Auto) Neut # (Auto) Lymph # (Auto) [place] # (Auto) Eos # (Auto) Baso # (Auto) WBC Differential Seg Neuts % (Manual) Band Neuts % (Manual) Lymphocytes % (Manual) Abs Neuts (Manual) Differential Comment Platelet Estimate Platelet Morphology PT INR APTT Puncture Site Patient Temperature O2 Saturation ABG pH ABG pCO2 ABG pO2 ABG HCO3 ABG O2 Content ABG Base Excess ABG Methemoglobin Hemoglobin Carboxyhemoglobin O2 Delivery Device Vent Setting Inspired O2 Critical Value Sodium Potassium Chloride Carbon Dioxide Anion Gap BUN Creatinine Estimated GFR POC Glucose 311 H Random Glucose Osmolality Lactic Acid Calcium Calcium Adj for Albumin Phosphorus Magnesium Total Bilirubin GGT AST ALT Alkaline Phosphatase Troponin I Total Protein Albumin Beta HCG, Quant Urine Color Urine Clarity Urine pH Ur Specific [place] Urine Protein Urine Glucose (UA) Urine Ketones Urine Occult Blood Urine Nitrate Urine Bilirubin Urine Urobilinogen Ur Leukocyte Esterase Urine RBC Urine WBC Ur Squamous Epith Cells Micro UA Comment Ur Microscopic Review Urine Culture Comments Urine Osmolality Ur Random Sodium Nasal Screen MRSA (PCR) Salicylates Urine Opiates Screen Acetaminophen Ur Barbiturates Screen Ur Amphetamine Screen Ur Amphetamines Screen U Benzodiazepines Scrn Urine Cocaine Screen U Cannabinoids Screen Serum Alcohol Hepatitis A IgM Ab Hep Bs Antigen Hep B Core IgM Ab Hep C IgG Ab Result Diagrams: 08/04/18 04:00 08/04/18 14:20 Microbiology: Microbiology 08/03/18 06:45 Gram Stain - Final Sputum - Endotracheal Sputum Culture - Preliminary Heavy growth normal respiratory ness at 24 hours 08/03/18 07:11 Aerobic Blood Culture - Preliminary Blood - Peripheral No growth in 1 day Anaerobic Blood Culture - Preliminary No growth in 1 day 08/03/18 07:04 Aerobic Blood Culture - Preliminary Blood - Peripheral No growth in 1 day Anaerobic Blood Culture - Preliminary No growth in 1 day 08/02/18 19:20 Urine Culture - Final Catheterized Urine No growth in 48 hours Imaging: To help prompt me to consider important information that might be impacting today's encounter and assessment, information from prior notes written by myself or my colleagues may have been "brought forward" into today's note. My signature on this note, however, is an attestation that I personally performed the exam, history, and/or decision-making noted today, and, unless otherwise indicated, the interactions with patient, family, and staff as well as the review of records all occurred today. I also attest that the listed assessment and stated plan reflect my best clinical judgment today based on the combination of historical information, prior notes, and today's exam/ interactions. When time spent is documented, it refers only to time spent today by the signer, or if indicated, combined time spent today by collaborating physician/nurse practitioner. Procedures: 08/02/2018: Intubation prior to arriving at the hospital. 08/02/2018: Right radial arterial line placement Assessment and Plan - Disease Oriented Problem List (1) Sepsis (2) Leukocytosis (3) Cardiac arrest (4) History of diabetic gastroparesis (5) Bipolar disorder (6) Opioid dependence (7) Neuropathy (8) Diabetes Pertinent Non-Medical Issues: Psychosocial: Patient was born and raised in [place]. She lives in [place], [place] with her . She is unemployed and on SSI. Her highest level of education is 10th grade. Patient has 3 adult children (Barbie, Jimmy and Marianna). Barbie is incarcerated. Leroy is in the currently living in [place]. Daughter, Marianna, is 19 and lives in [place]. Jimmy and Marianna are attempting to make arrangements to get to [facility]. Spiritual: [employer] mari Legal: Per [place] statutes, in the absence of written advanced directives healthcare proxy decision making falls to the patient's Ethical issues impacting care: No known ethical issues impacting care at this time. Important Contacts: Mague Betts, significant other: [phone] Prognosis: Patient is a 47-year-old who who has a long history of drug addiction with previous overdose and cardiac arrest. She was hospitalized 08/02/2018 after a subsequent out of hospital cardiac arrest with suspected severe anoxic encephalopathy. CT head shows diffuse cerebral edema. No evidence for any brainstem reflexes on exam. Prognosis is extremely poor. Code Status: Alternative Code (Intubation only) Plan: * ALTERNATE CODE-INTUBATION ONLY * Decision making: Per [place] statutes, in the absence of written advanced directives healthcare proxy decision making falls to the patient's , Mague. * Aggressive goals up to the point of cardiopulmonary resuscitation.Patient has is hopeful the patient will survive until her children arrived to say goodbye but does not want her suffering to be prolonged unnecessarily. ALTERNATE CODE. * Discussed patient with RN (Joann) and Dr. Brewer * Nursing reports the patient's daughter (Marianna) arrived earlier today stating her mother was not legally to Mague Betts. A copy of their marriage lisc. was provided to the hospital. Additionally, Palliative care was able to locate the couples marriage license on [facility] website. * Neurology is following. Per Dr. Hernández's note, patient has no brainstem reflexes on exam. EEG on 08/03/2018 congruent with severe encephalopathy with only minimal EEG activity present. * Palliative care will continue to follow this patient throughout her hospitalization to establish trust, assist with symptom management and clarification of medical treatment goals. * ADDENDUM: Brain flow study showed no intracerebral blood flow, consistent with imaging findings for brain . Dr. Brewer is aware. Attestation Attestation: To help prompt me to consider important information that might be impacting today's encounter and assessment, information from prior notes written by myself or my colleagues may have been "brought forward" into today's note. My signature on this note, however, is an attestation that I personally performed the exam, history, and/or decision-making noted today, and, unless otherwise indicated, the interactions with patient, family, and staff as well as the review of records all occurred today. I also attest that the listed assessment and stated plan reflect my best clinical judgment today based on the combination of historical information, prior notes, and today's exam/ interactions. When time spent is documented, it refers only to time spent today by the signer, or if indicated, combined time spent today by collaborating physician/nurse practitioner.
--- NOTE | 2018-08-04 14:55 | P.PNCC ---
Subjective Subjective Remarks/Hospital Course: 08/03: No change overnight neurology has been consulted. Patient remains GCS 3 T. Neurology has examined the patient, no corneal ,lid,gag , oculocephalic reflexes. Patient has a poor prognosis. Palliative Care has been notified to determine goals of care. 08/04: No change in neurological status. The blood flow study revealed no flow equivalent to brain . I discussed with family at bedside plan for neurological exam for declaration. Norepinephrine was discontinued at 2 AM patient remains normotensive . Leukocytosis resolving. The patient was noted to be hypernatremic free water flushes 200 cc every 4 hours initiated early this a.m. repeat sodium level pending. Objective Vital Signs / I&O: Vital Signs 08/03/18 15:00 08/03/18 15:15 08/03/18 15:38 Temperature Pulse Rate 113 H 110 H Respiratory Rate 19 21 14 Blood Pressure 96/48 L Pulse Oximetry 100 100 100 08/03/18 16:00 08/03/18 17:00 08/03/18 18:00 Temperature 100 F H Pulse Rate 108 H 97 H 95 H Respiratory Rate 14 14 14 Blood Pressure 93/64 L Pulse Oximetry 100 100 100 08/03/18 19:00 08/03/18 19:23 08/03/18 20:00 Temperature Pulse Rate 93 H 92 H 93 H Respiratory Rate 13 13 13 Blood Pressure 128/72 Pulse Oximetry 100 100 100 08/03/18 21:00 08/03/18 22:00 08/03/18 23:00 Temperature Pulse Rate 94 H 95 H 94 H Respiratory Rate 13 13 13 Blood Pressure Pulse Oximetry 100 100 100 08/03/18 23:02 08/04/18 00:00 08/04/18 01:00 Temperature Pulse Rate 95 H 97 H 103 H Respiratory Rate 13 13 13 Blood Pressure Pulse Oximetry 100 100 100 08/04/18 02:00 08/04/18 03:00 08/04/18 03:16 Temperature 96.8 F L 96.9 F L Pulse Rate 105 H 104 H 104 H Respiratory Rate 13 13 13 Blood Pressure Pulse Oximetry 100 100 100 08/04/18 04:00 08/04/18 05:00 08/04/18 05:59 Temperature 96.9 F L 97.1 F L Pulse Rate 105 H 107 H 105 H Respiratory Rate 14 13 Blood Pressure 141/85 H Pulse Oximetry 100 100 08/04/18 06:00 08/04/18 07:00 08/04/18 07:50 Temperature 97.2 F L Pulse Rate 105 H 105 H 105 H Respiratory Rate 13 13 13 Blood Pressure Pulse Oximetry 100 100 08/04/18 07:51 08/04/18 08:00 08/04/18 09:00 Temperature 97.3 F L Pulse Rate 106 H 107 H Respiratory Rate 13 13 13 Blood Pressure 148/94 H Pulse Oximetry 100 100 100 08/04/18 10:00 08/04/18 10:21 08/04/18 11:00 Temperature Pulse Rate 106 H 105 H Respiratory Rate 13 9 L Blood Pressure Pulse Oximetry 100 100 100 08/04/18 11:04 08/04/18 11:05 08/04/18 11:15 Temperature Pulse Rate 104 H 106 H 106 H Respiratory Rate 17 13 13 Blood Pressure 131/81 131/81 130/78 Pulse Oximetry 100 100 100 08/04/18 11:30 08/04/18 11:45 08/04/18 12:00 Temperature 97.2 F L Pulse Rate 105 H 105 H 104 H Respiratory Rate 13 13 13 Blood Pressure 127/77 128/74 116/74 Pulse Oximetry 100 100 100 08/04/18 12:02 08/04/18 12:15 08/04/18 12:30 Temperature Pulse Rate 104 H 104 H 106 H Respiratory Rate 13 13 13 Blood Pressure 122/75 132/78 Pulse Oximetry 100 100 100 08/04/18 12:45 08/04/18 13:00 08/04/18 13:15 Temperature Pulse Rate 108 H 107 H 107 H Respiratory Rate 13 13 13 Blood Pressure 108/74 111/72 113/75 Pulse Oximetry 100 100 100 08/04/18 13:30 Temperature Pulse Rate 106 H Respiratory Rate 13 Blood Pressure 115/76 Pulse Oximetry 100 Intake & Output 08/03/18 08/04/18 08/04/18 18:59 06:59 18:59 Intake Total 1340 / 1340 1999 523 / 523 Output Total 666 / 666 2440 / 2440 1138 / 1138 Balance 674 / 674 -440 / -440 -615 / -615 Weight 71.5 kg Intake: IV 1340 / 1340 1999 523 / 523 NS Inj 1,000 ML @ 125 mls/hr IV 625 / 625 1999 / 1999 523 / 523 .CONT .Q8H HUYEN Rx#:[id number] Cardene Inj 25 MG In NS Inj 240 435 / 435 ML @ 5 MG/HR 50 mls/hr IV.CONT TITRATE PRN Rx#:[id number] Glycophos Inj 30 MMOL In NS Inj 280 / 280 250 ML @ 42 mls/hr IV.SIG UNSCH PRN Rx#:[id number] Output: Urine Amount (Catheter) 666 / 666 2440 / 2440 1138 / 1138 Indwelling Urethral Catheter 666 / 666 2440 / 2440 1138 / 1138 Result Diagrams: 08/04/18 04:00 08/04/18 08:09 Other Results: Laboratory Results WBC 13.4 th/mm3 (4.0-11.0) H 08/04/18 04:00 RBC 2.78 mil/mm3 (4.00-5.30) L 08/04/18 04:00 Hgb 8.5 gm/dL (11.6-15.3) L 08/04/18 04:00 Hct 26.3 % (35.0-46.0) L 08/04/18 04:00 MCV 94.8 fL (80.0-100.0) 08/04/18 04:00 MCH 30.5 pg (27.0-34.0) 08/04/18 04:00 MCHC 32.2 % (32.0-36.0) 08/04/18 04:00 RDW 18.2 % (11.6-17.2) H 08/04/18 04:00 Plt Count 293 th/mm3 (150-450) 08/04/18 04:00 MPV 7.6 fL (7.0-11.0) 08/04/18 04:00 Prelim Diff (Auto) Slide review pending 08/03/18 07:40 Neut % (Auto) 84.7 % (16.0-70.0) H 08/04/18 04:00 Lymph % (Auto) 8.8 % (9.0-44.0) L 08/04/18 04:00 [place] % (Auto) 6.3 % (0.0-8.0) 08/04/18 04:00 Eos % (Auto) 0.0 % (0.0-4.0) 08/04/18 04:00 Baso % (Auto) 0.2 % (0.0-2.0) 08/04/18 04:00 Neut # (Auto) 11.4 th/mm3 (1.8-7.7) H 08/04/18 04:00 Lymph # (Auto) 1.2 th/mm3 (1.0-4.8) 08/04/18 04:00 [place] # (Auto) 0.8 th/mm3 (0.0-0.9) 08/04/18 04:00 Eos # (Auto) 0.0 th/mm3 (0.0-0.4) 08/04/18 04:00 Baso # (Auto) 0.0 th/mm3 (0.0-0.2) 08/04/18 04:00 WBC Differential . 08/04/18 04:00 Seg Neuts % (Manual) 84 % (16-70) H 08/03/18 07:40 Band Neuts % (Manual) 11 % (0-6) H 08/03/18 07:40 Lymphocytes % (Manual) 5 % (9-44) L 08/03/18 07:40 Abs Neuts (Manual) 16.2 th/mm3 (1.8-7.7) H 08/03/18 07:40 Differential Comment Auto diff final 08/04/18 04:00 Platelet Estimate Normal (Normal) 08/03/18 07:40 Platelet Morphology Normal (Normal) 08/03/18 07:40 PT 11.9 sec (9.8-11.6) H 08/04/18 04:00 INR 1.2 Ratio 08/04/18 04:00 APTT 29.2 sec (23.4-31.7) 08/02/18 19:20 Puncture Site Art line 08/04/18 04:15 Patient Temperature 98.6 08/04/18 04:15 O2 Saturation 97 % (90-100) 08/04/18 04:15 ABG pH 7.43 (7.380-7.420) H 08/04/18 04:15 ABG pCO2 32 mmHg (38-42) L 08/04/18 04:15 ABG pO2 162 mmHG (61-120) H 08/04/18 04:15 ABG HCO3 21 mmol/L (22-26) L 08/04/18 04:15 ABG O2 Content 12.5 Vol % (12.0-20.0) 08/04/18 04:15 ABG Base Excess -2.5 mmol/L (-2-2) L 08/04/18 04:15 ABG Methemoglobin 1.5 % (0-2) 08/04/18 04:15 Hemoglobin 8.9 G/DL (12.0-16.0) L 08/04/18 04:15 Carboxyhemoglobin 1.0 % (0-4) 08/04/18 04:15 O2 Delivery Device Ventilator 08/04/18 04:15 Vent Setting 13/500/it1.0/5peep 08/04/18 04:15 Inspired O2 35 % 08/04/18 04:15 Critical Value No 08/04/18 04:15 Sodium 162 meq/L (136-145) H* D 08/04/18 08:09 Potassium 3.6 meq/L (3.5-5.1) 08/04/18 08:09 Chloride 128 meq/L (98-107) H D 08/04/18 08:09 Carbon Dioxide 23.1 meq/L (21.0-32.0) 08/04/18 08:09 Anion Gap 11 meq/L (5-15) 08/04/18 08:09 BUN 27 mg/dL (7-18) H 08/04/18 08:09 Creatinine 1.45 mg/dL (0.50-1.00) H 08/04/18 08:09 Estimated GFR 39 mL/min (>89) L 08/04/18 08:09 POC Glucose 275 mg/dl (68-110) H 08/04/18 14:33 Random Glucose 249 mg/dL (74-106) H 08/04/18 08:09 Osmolality 313 mosm/kg (275-295) H 08/02/18 21:36 Lactic Acid 3.5 mmol/L (0.4-2.0) H 08/02/18 23:00 Calcium 7.7 mg/dL (8.5-10.1) L 08/04/18 08:09 Calcium Adj for Albumin 7.9 mg/dL (8.5-10.1) L 08/03/18 07:40 Phosphorus 3.5 mg/dL (2.5-4.9) D 08/04/18 08:09 Magnesium 2.4 mg/dL (1.5-2.5) 08/04/18 08:09 Total Bilirubin 0.2 mg/dL (0.2-1.0) 08/04/18 08:09 GGT 462 U/L (5-55) H 08/02/18 21:36 AST 143 U/L (15-37) H 08/04/18 08:09 ALT 61 U/L (10-53) H 08/04/18 08:09 Alkaline Phosphatase 225 U/L (45-117) H 08/04/18 08:09 Troponin I 0.04 ng/mL (0.02-0.05) 08/02/18 19:20 Total Protein 6.5 g/dL (6.4-8.2) 08/04/18 08:09 Albumin 2.6 g/dL (3.4-5.0) L 08/04/18 08:09 Beta HCG, Quant Less than 1 mIU/mL (0-5) 08/04/18 08:09 Urine Color Yellow (Yellw/Straw) 08/02/18 19:20 Urine Clarity Hazy (Clear) H 08/02/18 19:20 Urine pH 6.0 (5.0-8.5) 08/02/18 19:20 Ur Specific [place] 1.011 (1.002-1.035) 08/02/18 19:20 Urine Protein 100 mg/dL (Neg-Trace) H 08/02/18 19:20 Urine Glucose (UA) 500 or greater mg/dL (Negative) 08/02/18 19:20 Urine Ketones Negative mg/dL (Negative) 08/02/18 19:20 Urine Occult Blood Small (Negative) H 08/02/18 19:20 Urine Nitrate Negative (Negative) 08/02/18 19:20 Urine Bilirubin Negative (Negative) 08/02/18 19:20 Urine Urobilinogen Less than 2 mg/dL (Less than 2) 08/02/18 19:20 Ur Leukocyte Esterase Negative (Negative) 08/02/18 19:20 Urine RBC 22 /hpf (0-3) H 01/13/19 19:20 Urine WBC 10 /hpf (0-5) H 08/02/18 19:20 Ur Squamous Epith Cells 1 /hpf (0-5) 08/02/18 19:20 Micro UA Comment Cath-culture ind 08/02/18 19:20 Ur Microscopic Review Not Reportable 08/02/18 19:20 Urine Culture Comments Cath-cult indicated 08/02/18 19:20 Urine Osmolality 489 mosm/kg (300-1300) 08/02/18 22:45 Ur Random Sodium 41 meq/L 08/02/18 22:45 Nasal Screen MRSA (PCR) Not detected (Negative) 08/02/18 22:45 Salicylates Less than 1.7 mg/dL (2.8-20.0) L 08/02/18 19:20 Urine Opiates Screen Neg (Neg) 08/02/18 22:45 Acetaminophen Less than 2.0 mcg/mL (10.0-30.0) L 08/02/18 19:20 Ur Barbiturates Screen Neg (Neg) 08/02/18 22:45 Ur Amphetamine Screen Neg (Neg) 08/02/18 22:45 Ur Amphetamines Screen Neg (Neg) 08/02/18 19:20 U Benzodiazepines Scrn Neg (Neg) 08/02/18 22:45 Urine Cocaine Screen Pos (Neg) H 08/02/18 22:45 U Cannabinoids Screen Neg (Neg) 08/02/18 22:45 Serum Alcohol 4 mg/dL (0-5) 08/02/18 19:20 Hepatitis A IgM Ab Nonreactive (Nonreactive) 08/02/18 21:36 Hep Bs Antigen Nonreactive (Nonreactive) 08/02/18 21:36 Hep B Core IgM Ab Nonreactive (Nonreactive) 08/02/18 21:36 Hep C IgG Ab Nonreactive (Nonreactive) 08/02/18 21:[address] 08/02/18 19:14 CONCLUSION: 1. Findings suggest diffuse cerebral edema with loss of delineation of potter- white matter differentiation and diffuse sulcal effacement. No evidence of mass effect or acute blood products. 2. Ethmoid and sphenoid sinus disease. . Brain Flow Nuclear Medicine 08/04/18 00:00 CONCLUSION: No intracerebral blood flow is visualized consistent with imaging findings for brain . Chest X-Ray 08/04/18 04:00 CONCLUSION: 1. No significant interval change. 2. Stable tubes and lines. 3. Lungs are clear. Objective Remarks: GENERAL: Intubated and on no sedation. GCS 3 T SKIN: Warm and dry. HEAD: Atraumatic. Normocephalic. EYES: Pupils equal and round. No scleral icterus. No injection or drainage. ENT: No nasal bleeding or discharge. Mucous membranes pink and moist. NECK: Trachea midline. No JVD. CARDIOVASCULAR: Normal rate, regular rhythm. RESPIRATORY: No accessory muscle use. Clear to auscultation. Breath sounds equal bilaterally. GASTROINTESTINAL: Abdomen soft, non-tender, nondistended. No guarding. MUSCULOSKELETAL: Extremities without clubbing, cyanosis, or edema. No obvious deformities. NEUROLOGICAL: GCS 3T. No gag, lid, corneal, oculocephalic reflexes. Pupils are 6mm fixed and dilated. 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 Very critically ill. We will not pursue therapeutic hypothermia given length of out of hospital cardiac arrest. We will continue supportive care. Plan by systems: Neurologic: Toxic encephalopathy Hypoxic ischemic encephalopathy Polysubstance abuse Cocaine abuse Malignant cerebral edema confirmatory urine tox screen-cocaine positive alcohol level results-positive Frequent neurochecks Avoid any sedation Plan formal brain test Vertebral blood flow study-no intracerebral blood flow consistent with brain Neurology following Respiratory: Acute hypoxic hypercarbic respiratory failure Vent bundle Head of bed elevated Wean FiO2 for goal SPO2 greater than 90% Nebs Cardiovascular: Sinus tachycardia-resolved Hypertensive emergency-resolved Out of hospital asystolic cardiac arrest Normal saline maintenance fluids at 84 cc an hour Renal: Acute kidney injury -- Strict I/Os Daily BMP FEN/GI: Acute liver injury Acute intravascular volume depletion Hypernatremia Hepatitis panel Free water flushes 200 mg every 4hrs Liver injury may be combination of chronic substance abuse with component of shock liver from cardiac arrest Daily CMP, magnesium, phosphorus ICU electrolyte protocol Heme/ID: No infectious etiology suspected this time Daily CBC Endocrine: Hyperglycemia of critical illness -- SSI, medium scale, every 6hrs Prophylaxis: GI Prophylaxis IV Pepcid DVT Prophylaxis -- SCDs Lovenox Lines: 08/02 IJ triple-lumen catheter 08/02 right radial arterial line Muhammad Dispo: Cerebral blood flow consistent with brain . Formal neurological exam by physicians are pending. This patient remains critically ill with one or more organ systems which are or may become a threat to life. I have spent in excess of 30 minutes discontinuously in the care and management of this patient. This time is exclusive of procedures, and includes, but is not limited to, evaluation of the patient, review of the medical record, discussions with family, consultants, nursing staff, or respiratory therapy, and documentation in the medical record. Code Status: alternative Discussed Condition With: and family at bedside, [employer] at bedside, Dr. 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
[2018-08-04 16:05] VITALS: BP 110/60; TEMP 98.6
[2018-08-04 16:19] LABS: ABG Base Excess -1.8 mmol/L (-2-2); ABG PCO2 33 mmHg (38-42); ABG PO2 125 mmHG (61-120)
[2018-08-04 16:37] LABS: ABG Base Excess -0.9 mmol/L (-2-2); ABG PCO2 44 mmHg (38-42); ABG PO2 109 mmHG (61-120)
[2018-08-04 17:13] VITALS: RESP 10
--- NOTE | 2018-08-04 20:52 | MG ---
cc: Fe Covarrubias MD EEG NUMBER: [id number] REFERRING PHYSICIAN: Huang Hernández MD ROOM: [id number] With photic stimulation, no sedation, intubated, no response to deep tactile stimulation in all 4 extremities. Some eye opening. Sternal rub, no movement. Brain blood flow shows no intracerebral blood flow visualized consistent with brain . EEG 08/03/2018, I do not have the report. The patient was found in the car unresponsive and was in asystole and hypotensive. History of bipolar, diabetes, neuropathy, heroin abuse. CURRENT MEDICINES: 1. Lovenox. 2. Albuterol. 3. Norepinephrine. DESCRIPTION OF RECORD: Overall EEG, significant decrease in amplitude looks to be flat line. There is no activity noted. There is some artifact, but there is nothing noted as far as any activity. Photic stimulation is done. There is absolutely no driving response. Stimulation to the patient's left foot, right foot, left nail bed, right nail bed, did not show any epileptiform features. At one point, the sternal rub did show some artifact correlating with also the EKG. IMPRESSION: Significantly abnormal electroencephalogram due to diffuse cerebral dysfunction, looks like electrocerebral silence. Blood flow study is also confirmatory. Clinical correlation. Fe Covarrubias MD DF/taylor , 08:20 PM , 08:31 PM
[2018-08-04 21:05] VITALS: PULSE 108
--- NOTE | 2018-08-04 23:16 | P.DN ---
Pronouncement Note - Date and Time of Date of : 08/04/18 Time of : 20:00 - PCOD Preliminary cause of : cerebral herniation. brain . - Contributing Factors (1) Sepsis (2) Abscess of right upper extremity (3) Leukocytosis (4) Syncope (5) Cardiac arrest (6) History of diabetic gastroparesis (7) Bipolar disorder (8) Opioid dependence (9) Neuropathy (10) Diabetes (11) H/O skin graft (12) H/O Spinal surgery
--- NOTE | 2018-08-04 23:17 | P.DN ---
- Provider Primary care physician: Sukumar Logan Admitting clinician: Daniel Sandoval Attending physician on admission: Daniel Sandoval Consults: 08/03/18 06:41 Consult to Palliative Care Routine Consulting Provider: Makenna Mcclure Reason for Consultation: Post code, GCS of 3. Per Dr. Brewer Notified:: Service Spoke with:: Gui Date Notified:: 08/03/18 Time Notified:: 07:20 Ordering Provider: SOBEIDA 08/03/18 06:57 Consult to Neurology Routine Consulting Provider: Huang Hernández Jawbone Breaker:: Huang Hernández Reason for Consultation: Request neuro evaluation ,patient status post asystolic cardiac arrest, unknown downtime upon presentation cerebral edema overbreathing vent. EEG pending Notified:: Service Spoke with:: Gui Date Notified:: 08/03/18 Time Notified:: 07:22 Ordering Provider: SOBEIDA 08/03/18 08:49 HUB Only Consult Order Routine Consulting Provider: [facility],Insurance Pronouncing clinician: Daniel Sandoval - Admitting Diagnosis (1) Cardiac arrest (2) History of diabetic gastroparesis (3) Abscess of right upper extremity (4) Bipolar disorder (5) Diabetes (6) H/O Spinal surgery (7) H/O skin graft (8) Leukocytosis (9) Neuropathy (10) Opioid dependence (11) Sepsis (12) Syncope - Diagnosis at Time of (1) Cardiac arrest Diagnosis: Principal (2) History of diabetic gastroparesis Diagnosis: Principal (3) Abscess of right upper extremity Diagnosis: Principal (4) Bipolar disorder Diagnosis: Principal (5) Diabetes Diagnosis: Principal (6) H/O Spinal surgery Diagnosis: Principal (7) H/O skin graft Diagnosis: Principal (8) Leukocytosis Diagnosis: Principal (9) Neuropathy Diagnosis: Principal (10) Opioid dependence Diagnosis: Principal (11) Sepsis Diagnosis: Principal (12) Syncope Diagnosis: Principal - Date and Time Date of admission: 08/02/18 19:45 Date of : 08/04/18 Time of : 20:00 - Summary Brief History: This is a 47-year-old female with a history of bipolar disorder and substance abuse disorder who presents as an out of hospital cardiac arrest. Per reports, she was found unresponsive in asystole. She was down for an unknown time. ROSC was obtained and she was brought into the emergency department with a persistently poor neurologic exam. CT head demonstrates significant and diffuse cerebral edema with loss of potter-white matter differentiation and cerebral effacement. The patient received no sedating or paralytic medications in the prehospital setting. She received no sedating or paralytic medications in the emergency department or in the intensive care unit. Her urine drug screen is positive for cocaine. When I evaluated the patient, her pupils are 6 mm, bilaterally equal fixed and dilated. She has no corneal reflex. She has no cough or gag. She is not ever believing the ventilator. She has no oculocephalic reflex. She has no oculovestibular reflex. She has no noted movement to painful stimuli in all 4 extremities. Her GCS is 3. No additional information is available from the patient. Review of systems is unobtainable. On my evaluation her blood pressure is 220 mmHg systolic. Clinically it appears that the patient is in active cerebral herniation. Due to the prolonged downtime and concern for active cerebral herniation, decision was made not to pursue therapeutic hypothermia, is this likely will not serve any benefit in his significant risks in this patient. Further, patients with this degree of cerebral edema and patient's with active intoxication/polysubstance abuse were not included in any of the trials showing benefit of therapeutic hypothermia. Result Diagrams: 08/04/18 04:00 08/04/18 14:20 Significant Findings: Abnormal Lab Results 08/03/18 08/04/18 08/04/18 23:51 03:52 04:00 WBC 13.4 H RBC 2.78 L Hgb 8.5 L Hct 26.3 L MCV 94.8 MCH 30.5 MCHC 32.2 RDW 18.2 H Plt Count 293 MPV 7.6 Neut % (Auto) 84.7 H Lymph % (Auto) 8.8 L Sebastian % (Auto) 6.3 Eos % (Auto) 0.0 Baso % (Auto) 0.2 Neut # (Auto) 11.4 H Lymph # (Auto) 1.2 Sebastian # (Auto) 0.8 Eos # (Auto) 0.0 Baso # (Auto) 0.0 WBC Differential . Differential Comment Auto diff final PT INR Puncture Site Patient Temperature O2 Saturation ABG pH ABG pCO2 ABG pO2 ABG HCO3 ABG O2 Content ABG Base Excess ABG Methemoglobin Dinh Test Hemoglobin Carboxyhemoglobin O2 Delivery Device Vent Setting Inspired O2 Critical Value Sodium Potassium Chloride Carbon Dioxide Anion Gap BUN Creatinine Estimated GFR POC Glucose 230 H 239 H Random Glucose Calcium Phosphorus Magnesium Total Bilirubin AST ALT Alkaline Phosphatase Total Protein Albumin Beta HCG, Quant 08/04/18 08/04/18 08/04/18 04:00 04:15 05:48 WBC RBC Hgb Hct MCV MCH MCHC RDW Plt Count MPV Neut % (Auto) Lymph % (Auto) Sebastian % (Auto) Eos % (Auto) Baso % (Auto) Neut # (Auto) Lymph # (Auto) Sebastian # (Auto) Eos # (Auto) Baso # (Auto) WBC Differential Differential Comment PT 11.9 H INR 1.2 Puncture Site Art line Patient Temperature 98.6 O2 Saturation 97 ABG pH 7.43 H ABG pCO2 32 L ABG pO2 162 H ABG HCO3 21 L ABG O2 Content 12.5 ABG Base Excess -2.5 L ABG Methemoglobin 1.5 Dinh Test Hemoglobin 8.9 L Carboxyhemoglobin 1.0 O2 Delivery Device Ventilator Vent Setting 13/500/it1.0/5peep Inspired O2 35 Critical Value No Sodium Potassium Chloride Carbon Dioxide Anion Gap BUN Creatinine Estimated GFR POC Glucose 263 H Random Glucose Calcium Phosphorus Magnesium Total Bilirubin AST ALT Alkaline Phosphatase Total Protein Albumin Beta HCG, Quant 08/04/18 08/04/18 08/04/18 07:52 08:09 08:09 WBC RBC Hgb Hct MCV MCH MCHC RDW Plt Count MPV Neut % (Auto) Lymph % (Auto) Sebastian % (Auto) Eos % (Auto) Baso % (Auto) Neut # (Auto) Lymph # (Auto) Sebastian # (Auto) Eos # (Auto) Baso # (Auto) WBC Differential Differential Comment PT INR Puncture Site Patient Temperature O2 Saturation ABG pH ABG pCO2 ABG pO2 ABG HCO3 ABG O2 Content ABG Base Excess ABG Methemoglobin Dinh Test Hemoglobin Carboxyhemoglobin O2 Delivery Device Vent Setting Inspired O2 Critical Value Sodium 162 H* D Potassium 3.6 Chloride 128 H D Carbon Dioxide 23.1 Anion Gap 11 BUN 27 H Creatinine 1.45 H Estimated GFR 39 L POC Glucose 237 H Random Glucose 249 H Calcium 7.7 L Phosphorus 3.5 D Magnesium 2.4 Total Bilirubin 0.2 AST 143 H ALT 61 H Alkaline Phosphatase 225 H Total Protein 6.5 Albumin 2.6 L Beta HCG, Quant Less than 1 08/04/18 08/04/18 08/04/18 09:54 11:48 14:20 WBC RBC Hgb Hct MCV MCH MCHC RDW Plt Count MPV Neut % (Auto) Lymph % (Auto) Sebastian % (Auto) Eos % (Auto) Baso % (Auto) Neut # (Auto) Lymph # (Auto) Sebastian # (Auto) Eos # (Auto) Baso # (Auto) WBC Differential Differential Comment PT INR Puncture Site Patient Temperature O2 Saturation ABG pH ABG pCO2 ABG pO2 ABG HCO3 ABG O2 Content ABG Base Excess ABG Methemoglobin Dinh Test Hemoglobin Carboxyhemoglobin O2 Delivery Device Vent Setting Inspired O2 Critical Value Sodium 164 H* Potassium Chloride Carbon Dioxide Anion Gap BUN Creatinine Estimated GFR POC Glucose 246 H 311 H Random Glucose Calcium Phosphorus Magnesium Total Bilirubin AST ALT Alkaline Phosphatase Total Protein Albumin Beta HCG, Quant 08/04/18 08/04/18 08/04/18 14:33 16:07 16:08 WBC RBC Hgb Hct MCV MCH MCHC RDW Plt Count MPV Neut % (Auto) Lymph % (Auto) Sebastian % (Auto) Eos % (Auto) Baso % (Auto) Neut # (Auto) Lymph # (Auto) Sebastian # (Auto) Eos # (Auto) Baso # (Auto) WBC Differential Differential Comment PT INR Puncture Site Art line Patient Temperature 98.6 O2 Saturation 96 ABG pH 7.44 H ABG pCO2 33 L ABG pO2 125 H ABG HCO3 22 ABG O2 Content 11.5 L ABG Base Excess -1.8 ABG Methemoglobin 1.6 Dinh Test Present Hemoglobin 8.3 L Carboxyhemoglobin 1.0 O2 Delivery Device Ventilator Vent Setting Prvc/ac Inspired O2 35 Critical Value No Sodium Potassium Chloride Carbon Dioxide Anion Gap BUN Creatinine Estimated GFR POC Glucose 275 H 263 H Random Glucose Calcium Phosphorus Magnesium Total Bilirubin AST ALT Alkaline Phosphatase Total Protein Albumin Beta HCG, Quant 08/04/18 08/04/18 08/04/18 16:26 17:47 19:46 WBC RBC Hgb Hct MCV MCH MCHC RDW Plt Count MPV Neut % (Auto) Lymph % (Auto) Sebastian % (Auto) Eos % (Auto) Baso % (Auto) Neut # (Auto) Lymph # (Auto) Sebastian # (Auto) Eos # (Auto) Baso # (Auto) WBC Differential Differential Comment PT INR Puncture Site Art line Patient Temperature 98.6 O2 Saturation 96 ABG pH 7.36 L ABG pCO2 44 H ABG pO2 109 ABG HCO3 24 ABG O2 Content 11.6 L ABG Base Excess -0.9 ABG Methemoglobin 1.5 Dinh Test Present Hemoglobin 8.5 L Carboxyhemoglobin 0.9 O2 Delivery Device Ventilator Vent Setting Prvc/ac Inspired O2 35 Critical Value No Sodium Potassium Chloride Carbon Dioxide Anion Gap BUN Creatinine Estimated GFR POC Glucose 228 H 278 H Random Glucose Calcium Phosphorus Magnesium Total Bilirubin AST ALT Alkaline Phosphatase Total Protein Albumin Beta HCG, Quant Hospital Course: 08/03: No change overnight neurology has been consulted. Patient remains GCS 3 T. Neurology has examined the patient, no corneal ,lid,gag , oculocephalic reflexes. Patient has a poor prognosis. Palliative Care has been notified to determine goals of care. 08/04: No change in neurological status. The blood flow study revealed no flow equivalent to brain . I discussed with family at bedside plan for neurological exam for declaration. Norepinephrine was discontinued at 2 AM patient remains normotensive . Leukocytosis resolving. The patient was noted to be hypernatremic free water flushes 200 cc every 4 hours initiated early this a.m. repeat sodium level pending. Formal brain testing was conclusive. patient was declared by neurologic criteria on 08/04 at 20:00.
[2018-08-05 11:51] LABS: Baso % (Auto) 0.1 % (0.0-2.0); Hematocrit 27.2 % (35.0-46.0); Lymph # (Auto) 0.7 th/mm3 (1.0-4.8); Lymph % (Auto) 4.3 % (9.0-44.0); Mean Corpuscular HGB Conc 32.9 % (32.0-36.0); Mean Corpuscular Hemoglobin 30.1 pg (27.0-34.0); Mean Corpuscular Volume 91.4 fL (80.0-100.0); Mean Platelet Volume 7.6 fL (7.0-11.0); Mono # (Auto) 0.5 th/mm3 (0.0-0.9); Mono % (Auto) 3.2 % (0.0-8.0); Neut # (Auto) 14.2 th/mm3 (1.8-7.7); Neut % (Auto) 92.4 % (16.0-70.0); Platelet Count 294 th/mm3 (150-450); Red Blood Count 2.98 mil/mm3 (4.00-5.30); Red Cell Distribution Width 18.9 % (11.6-17.2); White Blood Count 15.4 th/mm3 (4.0-11.0)
[2018-08-05 11:57] LABS: INR 1.2 Ratio; Prothrombin Time 11.9 sec (9.8-11.6)
[2018-08-05 12:28] LABS: Alanine Aminotransferase 56 U/L (10-53); Albumin 2.8 g/dL (3.4-5.0); Alkaline Phosphatase 229 U/L (45-117); Anion Gap 4 meq/L (5-15); Aspartate Aminotransferase 87 U/L (15-37); Blood Urea Nitrogen 22 mg/dL (7-18); Calcium 8.8 mg/dL (8.5-10.1); Carbon Dioxide 27.4 meq/L (21.0-32.0); Chloride 136 meq/L (98-107); Glomerular Filtration Rate 35 mL/min (>89); Glucose,Random 82 mg/dL (74-106); Magnesium 2.2 mg/dL (1.5-2.5); Potassium 3.6 meq/L (3.5-5.1); Total Protein 6.6 g/dL (6.4-8.2)
[2018-08-05 12:31] LABS: Sodium 167 meq/L (136-145)
== END 2018-08-04 20:00 | disposition expired | DRG 80 ==
LOC: NEPC 18:39 → NEDA 19:45 → HIMC 20:15
PROVIDERS: ADMIT Internal Medicine Critical Care Medicine; ATTEND Internal Medicine Critical Care Medicine
CPT/HCPCS: 36556; 36569; 51702; 70450; 71010; 71045; 78606; 80053; 80074; 80101; 80301; 80307; 81001; 82805; 82948; 82962; 82977; 83605; 83735; 83930; 83935; 84100; 84295; 84300; 84484; 84702; 85025; 85610; 85730; 87040; 87070; 87086; 87205; 87641; 90760; 93005; 94002; 94003; 94640; 94656; 94657; 94665; 95819; 96360; 99291; A9515; A9539; C1098; G0431; G0479; G0481; G0483; J1650; J7030; J7050; J7120